=== PATIENT | female | born 1960 | race African-American/Black ===

== ENCOUNTER 2016-09-04 23:24 | Emergency (ER) | payer OTHER ==
[~2016-09-04] VITALS: Ht 172.7 cm; Wt 85.0 kg
[~2016-09-04 23:24] MED LIST: AMIT100 PO; ATOR40TA49 PO; COLY4000S PO; FERR324T4 PO; GLIP10TA6 PO; GLUC1000 PO; GLUCTES27 XX; LISI-360 PO; NEUR600T PO; SERO300T PO
[2016-09-04 23:27] VITALS: BP 132/75; PULSE 120; RESP 16; TEMP 98.1; O2SAT 99
[2016-09-05 01:00] VITALS: BP 133/67; PULSE 106; RESP 20; O2SAT 99
[2016-09-05] MEDS ORDERED: SODIUM CHLOR 0.9% 1000 ML INJ 1,000 ML IV ONE ×2 (01:00→02:15)
--- NOTE | 2016-09-05 01:09 | PD ---
HPI Chief Complaint: Diabetic Time Seen by Provider: 00:47 Travel History International Travel<30 days: No Contact w/Intl Traveler<30days: No Traveled to known affect area: No History of Present Illness HPI The patient is a 56 year old female who presents to the [facility] emergency department with a history of abnormal laboratory studies reportedly done earlier today as an outpatient by her psychiatrist. She was told that her blood sugar was very high on her blood work and that she needed to go to the emergency department. She was previously followed by her primary care through patient assistance, however she reports that her card has . She ran out of her usual diabetic and blood pressure medication in May 2016. She reports that the medication never seemed to control her blood sugar. The patient arrives with a blood sugar of 596. She reports that over the last 2-3 days she has had dysuria with urinary frequency and urgency. She reports that she also had a two-week history of diarrhea that resolved on Sunday. She denies having any blood in her stool or black or tarry stools. She reports that she does have upper abdominal discomfort. She reports that she has a dry mouth and dark urine. The patient denies any recent fevers, cough, congestion, neck pain, chest pain, shortness of breath, vomiting, or neurologic symptoms. [facility] Past Medical History Narrative Medical The patient's past medical history is significant for diabetes mellitus, history of depression, history of hypertension, history of medication noncompliance, history of diabetic neuropathy, history of tobacco abuse. Depression: Yes Diabetes: Yes (METFORMIN/GLIPIZIDE /HX OF NEUROPATHY) Patient Takes Glucophage: Yes Diminished Hearing: No Psychiatric: Yes (DEPRESSION) Immunizations Current: No Ulcer: Yes : 1 Para: 1 Past Surgical History Narrative Surgical The patient's past surgical history is significant for a right ankle surgery, left knee surgery. Social History Alcohol Use: No Tobacco Use: Yes (4-5 CIGGS PER WEEK) Substance Use: No Allergies-Medications (Allergen,Severity, Reaction): Coded Allergies: No Known Allergies (Verified , 09/20/15) Reported Meds & Prescriptions Reported Meds & Active Scripts Active Lisinopril 5 Mg Tab 5 Mg PO DAILY Glipizide 5 Mg Tab 5 Mg PO BIDAC Take 30 minutes before a meal Metformin (Metformin HCl) 1,000 Mg Tab 1,000 Mg PO BIDPC With meals Reported Seroquel (Quetiapine Fumarate) 300 Mg Tab 300 Mg PO BID Elavil (Amitriptyline HCl) 25 Mg Tab 100 Mg PO HS Narrative Medication The patient reports that she is currently taking amitriptyline, Seroquel Review of Systems Except as stated in HPI: all other systems reviewed are Neg General / Constitutional: No: Fever Eyes: No: Visual changes HENT: No: Headaches Cardiovascular: No: Chest Pain or Discomfort Respiratory: No: Shortness of Breath Gastrointestinal: Positive: Diarrhea, Abdominal Pain, Changes in Bowel Habits, No: Nausea, Vomiting, Indigestion, Loss of Appetite Genitourinary: Positive: Urgency, Frequency, Dysuria, No: Flank Pain Musculoskeletal: No: Pain Skin: No Rash Neurologic: No: Weakness, Focal Abnormalities, Change in Mentation, Slurred Speech, Sensory Disturbance Psychiatric: No: Depression Endocrine: No: Polydipsia Hematologic/Lymphatic: No: Easy Bruising Physical Exam Narrative General: The patient is a well-developed well-nourished female in no acute distress. Head and Neck exam: Head is normocephalic atraumatic. Eyes: EOMI, pupils are equal round and reactive to light. Nose: Midline septum with pink mucous membranes Mouth: Dentition unremarkable. Moist mucus membranes. Posterior oropharynx is not erythematous. No tonsillar hypertrophy. Uvula midline. Airway patent. Neck: No palpable lymphadenopathy. No nuchal rigidity. No thyromegaly. Cardiovascular: Sinus tachycardia in the low 100s without murmurs, gallops, or rubs. No pulse deficit to the extremities and simultaneous auscultation and palpation of her radial artery. Lungs: Clear to auscultation bilaterally. No wheezes, rhonchi, or rales. Abdomen: Soft, with tenderness on palpation in the midepigastric area, no other tenderness on palpation of the other quadrants of the abdomen. No guarding, rebound, or rigidity. Negative [place] sign. No tenderness on palpation of McBurney's point. Normal bowel sounds are audible. Extremities: No clubbing, cyanosis, or edema. 2+ pulses in all 4 extremities. No calf tenderness on palpation. Back: No spinous process tenderness to palpation. No costovertebral angle tenderness to palpation. Neurologic Exam: Grossly nonfocal. Skin Exam: No rash noted. Intact skin that is warm and dry. Data Data Last Documented VS Vital Signs Date Time Temp Pulse Resp B/P Pulse Ox O2 Delivery O2 Flow Rate FiO2 09/05/16 04:16 102 20 128/73 98 Room Air 09/04/16 23:27 98.1 Orders Electrocardiogram (09/05/16 00:50) Complete Blood Count With Diff (09/05/16 00:50) Comprehensive Metabolic Panel (09/05/16 00:50) Lipase (09/05/16 00:50) Urinalysis - C+S If Indicated (09/05/16 00:50) Beta Hydroxybutyrate (Acetone) (09/05/16 00:50) Iv Access Insert/Monitor (09/05/16 00:50) Ecg Monitoring (09/05/16 00:50) Oximetry (09/05/16 00:50) Sodium Chlor 0.9% 1000 Ml Inj (Ns 1000 M (09/05/16 01:00) Ct Abd/Pel W Iv Contrast(Rout) (09/05/16 01:01) Blood Gas Venous (Vbg) (09/05/16 01:15) Insulin Human Regular Inj (Novolin R Inj (09/05/16 02:15) Sodium Chlor 0.9% 1000 Ml Inj (Ns 1000 M (09/05/16 02:15) Iohexol 350 Inj (Omnipaque 350 Inj) (09/05/16 02:37) Blood Glucose (09/05/16 03:22) Insulin Human Regular Inj (Novolin R Inj (09/05/16 03:30) Labs Laboratory Tests Test 09/05/16 09/05/16 01:10 01:15 White Blood Count 9.1 TH/MM3 Red Blood Count 5.95 MIL/MM3 Hemoglobin 13.3 GM/DL Hematocrit 42.5 % Mean Corpuscular Volume 71.5 FL Mean Corpuscular Hemoglobin 22.4 PG Mean Corpuscular Hemoglobin 31.4 % Concent Red Cell Distribution Width 15.2 % Platelet Count 230 TH/MM3 Mean Platelet Volume 9.4 FL Neutrophils (%) (Auto) 47.6 % Lymphocytes (%) (Auto) 38.3 % Monocytes (%) (Auto) 7.8 % Eosinophils (%) (Auto) 5.3 % Basophils (%) (Auto) 1.0 % Neutrophils # (Auto) 4.3 TH/MM3 Lymphocytes # (Auto) 3.5 TH/MM3 Monocytes # (Auto) 0.7 TH/MM3 Eosinophils # (Auto) 0.5 TH/MM3 Basophils # (Auto) 0.1 TH/MM3 CBC Comment AUTO DIFF Differential Comment AUTO DIFF CONFIRMED Platelet Estimate NORMAL Platelet Morphology Comment NORMAL Ovalocytes 1+ Rouleau PRESENT Sodium Level 128 MEQ/L Potassium Level 4.8 MEQ/L Chloride Level 90 MEQ/L Carbon Dioxide Level 31.3 MEQ/L Anion Gap 7 MEQ/L Blood Urea Nitrogen 11 MG/DL Creatinine 0.97 MG/DL Estimat Glomerular Filtration 72 ML/MIN Rate Random Glucose 650 MG/DL Calcium Level 9.5 MG/DL Total Bilirubin 0.3 MG/DL Aspartate Amino Transf 27 U/L (AST/SGOT) Alanine Aminotransferase 33 U/L (ALT/SGPT) Alkaline Phosphatase 163 U/L Total Protein 6.9 GM/DL Albumin 3.4 GM/DL Lipase 124 U/L B-Hydroxybutyrate 0.18 MMOL/L Blood Gas Puncture Site LT RADIAL Blood Gas Patient Temperature 98.6 Venous Blood pH 7.38 Venous Blood Partial Pressure 53 mmHg CO2 Venous Blood Partial Pressure 21 mmHg O2 Venous Blood HCO3 30 mmol/L Venous Blood Oxygen Saturation 37 % Venous Blood Oxygen Content 6.9 Vol % Venous Blood Base Excess 5.3 mmol/L Blood Gas Inspired Oxygen 21 % MDM Medical Decision Making Medical Screen Exam Complete: Yes Emergency Medical Condition: Yes Medical Record Reviewed: Yes Differential Diagnosis DKA, versus hyperglycemia from medication noncompliance and type 2 diabetes, versus pancreatitis, versus pyelonephritis, versus cystitis, versus colitis, versus diverticulitis Narrative Course During the course of the patients emergency department visit, the patients history, examination, and differential diagnosis were reviewed with the patient. The patient had IV access obtained and blood work sent for analysis. The patient was placed on a pig machine supervisor with oximetry and blood pressure monitoring. A CT scan of the abdomen and pelvis was ordered. The patient had an EKG done. The patient's EKG shows a sinus tachycardia, rate of 114, possible right atrial enlargement, no acute ST segment elevation or depression. T waves are inverted in V1. The patient was provided normal saline 1 L IV fluid bolus. The patients laboratory studies were reviewed and remarkable for white count of 9.1, hemoglobin 13.3, platelets 235.3 eosinophils, CMP is remarkable for sodium of 128, chloride 90, glucose 650, alkaline phosphatase 163, lipase 124, beta hydroxybutyrate is 0.18 The patient was given 12 units of regular insulin subcutaneously 1. The patient was given a second liter of normal saline IV fluids. Radiology studies were reviewed and remarkable for a CT scan of the abdomen and pelvis that shows no acute intraperitoneal process. There does appear to be hyperdense lesions that are multiple and the area of the uterus that could represent fibroids. The patient does have a history of fibroids according to her record. Patient's blood sugar began to slowly improve. The patient's blood sugar came down to in the 400s. An additional 9 units of subcutaneous regular insulin was administered. The patient will be started back on her diabetic medication regimen as well as her antihypertensive medication regimen. She was instructed regarding the importance of following up with patient assistance in the morning. The patient is resting comfortably and feels better, is alert and in no distress. The patients results and examination findings were discussed with the patient. The repeat examination is unremarkable and benign. The history, exam, diagnostic testing, and current condition do not suggest any significant pathology to warrant further testing, continued ED treatment, admission, or surgical evaluation at this point. The vital signs have been stable. The patient does not have uncontrollable pain, intractable vomiting, or other significant symptoms. The patient's condition is stable and appropriate for discharge. The patient will pursue further outpatient evaluation with a primary care physician or other designated or consulting physician as indicated in the discharge instructions. The patient expressed understanding and was agreeable with this plan. Diagnosis Primary Impression: Diabetes mellitus Qualified Code: E11.65 - Type 2 diabetes mellitus with hyperglycemia, without long-term current use of insulin Additional Impression: Noncompliance with medication regimen Referrals: Patient Assistance Program 1 day Patient Instructions: Diabetic Hyperglycemia (ED), General Instructions Med/Other Pt SpecificInfo: Prescription(s) given Scripts Lisinopril 5 Mg Tab5 Mg PO DAILY #30 TAB Ref 0 Prov:Eliane Shah MD 09/05/16 Glipizide 5 Mg Tab5 Mg PO BIDAC #60 TAB Ref 0 Take 30 minutes before a meal Prov:Eliane Shah MD 09/05/16 Metformin 1,000 Mg Tab1,000 Mg PO BIDPC #60 TAB Ref 0 With meals Prov:Eliane Shah MD 09/05/16 Disposition: 01 DISCHARGE HOME Condition: Stable Eliane Shah MD Sep 05, 2016 01:09
[2016-09-05] MEDS ORDERED: SERO300T PO (01:13)
[2016-09-05] MEDS ORDERED: AMIT1TAB79 PO (01:13)
[2016-09-05 01:21] LABS: AUTOMATED NEUTROPHIL # 4.3 TH/MM3 (1.8-7.7); BASOPHIL # 0.1 TH/MM3 (0-0.2); EOSINOPHIL # 0.5 TH/MM3 (0-0.4); EOSINOPHIL % 5.3 % (0.0-4.0); HEMATOCRIT 42.5 % (35.0-46.0); LYMPH % 38.3 % (9.0-44.0); LYMPHOCYTE # 3.5 TH/MM3 (1.0-4.8); MEAN CELL VOLUME 71.5 FL (80.0-100.0); MEAN CORPUSCULAR HEMOGLOBIN 22.4 PG (27.0-34.0); MEAN CORPUSCULAR HGB CONC 31.4 % (32.0-36.0); MONO % 7.8 % (0.0-8.0); NEUT % 47.6 % (16.0-70.0); PLATELET COUNT 230 TH/MM3 (150-450); RED BLOOD COUNT 5.95 MIL/MM3 (4.00-5.30); RED CELL DISTRIBUTION WIDTH 15.2 % (11.6-17.2); WHITE BLOOD COUNT 9.1 TH/MM3 (4.0-11.0)
[2016-09-05 01:24] LABS: HEMO FLAGS AUTO DIFF
[2016-09-05 01:27] LABS: BLOOD GAS VENOUS BASE EXCESS 5.3 mmol/L (-2-2); BLOOD GAS VENOUS HCO3 30 mmol/L (22-26); BLOOD GAS VENOUS O2 CONTENT 6.9 Vol % (9.0-17.0); BLOOD GAS VENOUS O2 HGB SAT 37 % (70-76); BLOOD GAS VENOUS PCO2 53 mmHg (44-48); BLOOD GAS VENOUS PO2 21 mmHg (35-40); BLOOD GAS VENOUS pH 7.38 (7.360-7.400); TEMP CORR TO 98.6
[2016-09-05 01:28] LABS: CRITICAL VALUE YES; DRAW SITE LT RADIAL; FIO2 21 %; STAT YES
[2016-09-05 01:32] VITALS: RESP 20; O2SAT 95
[2016-09-05 01:53] LABS: ALKALINE PHOSPHATASE 163 U/L (45-117); ALT (GPT) 33 U/L (10-53); ANION GAP 7 MEQ/L (5-15); AST (GOT) 27 U/L (15-37); BETA-HYDROXYBUTYRATE 0.18 MMOL/L (0.00-0.39); BICARBONATE 31.3 MEQ/L (21.0-32.0); BLOOD UREA NITROGEN 11 MG/DL (7-18); CHLORIDE 90 MEQ/L (98-107); GLOMERULAR FILTRATION RATE 72 ML/MIN (>89); POTASSIUM 4.8 MEQ/L (3.5-5.1); SODIUM (NA) 128 MEQ/L (136-145); TOTAL BILIRUBIN ADULT 0.3 MG/DL (0.2-1.0)
[2016-09-05 01:59] LABS: OVALOCYTES 1+ (NORMAL); PLATELET ESTIMATE SMEAR NORMAL (NORMAL); PLATELET MORPHOLOGY NORMAL (NORMAL)
[2016-09-05 02:00] VITALS: BP 119/71; PULSE 104; RESP 20; O2SAT 98
[2016-09-05 02:02] LABS: ROULEAUX PRESENT (NORMAL); SCAN/DIFF AUTO DIFF CONFIRMED
[2016-09-05] MEDS ORDERED: INSULIN HUMAN REGULAR 1,000 UNITS/10 ML VIAL SQ ONE ×2 (02:15→03:30)
[2016-09-05] MEDS ORDERED: IOHEXOL 350 MG/ML 10 ML VIAL (for RAD DIAG) IV ONE (02:37)
--- NOTE | 2016-09-05 02:59 | RADRPT ---
EXAM DATE/TIME: 09/05/2016 02:34 [place] COMPARISON: No previous studies available for comparison. INDICATIONS : Upper abdominal pain. IV CONTRAST: 96 cc Omnipaque 350 (iohexol) IV ORAL CONTRAST: No oral contrast ingested. RADIATION DOSE: 16.45 CTDIvol (mGy) MEDICAL HISTORY : Ulcers. Hypertension. diabetes SURGICAL HISTORY : None. ENCOUNTER: Initial ACUITY: 1 day PAIN SCALE: 6/10 LOCATION: upper abdomen TECHNIQUE: Volumetric scanning of the abdomen and pelvis was performed. Using automated exposure control and ad justment of the mA and/or kV according to patient size, radiation dose was kept as low as reasonably achievable to obtain optimal diagnostic quality images. FINDINGS: LOWER LUNGS: The visualized lower lungs are clear. LIVER: Homogeneous density without lesion. There is no dilation of the biliary tree. No calcified gallston es. SPLEEN: Normal size without lesion. PANCREAS: Within normal limits. KIDNEYS: Normal in size and shape. There is no mass, stone or hydronephrosis. ADRENAL GLANDS: Within normal limits. VASCULAR: There is no aortic aneurysm. BOWEL/MESENTERY: The stomach, small bowel, and colon demonstrate no acute abnormality. There is no free intraperitone al air or fluid. ABDOMINAL WALL: Within normal limits. RETROPERITONEUM: There is no lymphadenopathy. BLADDER: No wall thickening or mass. REPRODUCTIVE: Well-circumscribed relatively hyperdense or over the expected location of the uterus may represent fi broids. In addition, there are fluid-filled tubular structures in the deep pelvis which may represent unopacified bowel although I cannot exclude a reproductive origin such as tubo-ovarian abscess. I do believe there is a small amount of free fluid in the deep pelvis. INGUINAL: There is no lymphadenopathy or hernia. MUSCULOSKELETAL: Within normal limits for patient age. CONCLUSION: 1. I do not see an acute intraperitoneal process to explain patient's reported left upper abdominal q uadrant pain. 2. However, there are multiple relatively hyperdense nodule projecting over the expected location of the uterus possibly represent fibroids. 3. In addition, there are either unopacified loops of bowel versus tubo-ovarian abscess in the periut erine distribution of the left pelvis. If patient does not have any pain referable to the pelvic ginette on, I do not believe a further workup is necessary. Otherwise, repeat CT scan in the a.m. with oral c ontrast would be recommended for further characterization of this region. Antoine King MD on September 05, 2016 at 2:50 Board Certified Radiologist. This report was verified electronically.
[2016-09-05 03:00] VITALS: BP 139/71; PULSE 104; RESP 20; O2SAT 98
[2016-09-05] MEDS ORDERED: GLIP5TAB8 PO (03:20)
[2016-09-05] MEDS ORDERED: LISI10TA3 PO (03:20)
[2016-09-05] MEDS ORDERED: METF1000 PO (03:20)
[2016-09-05 04:16] VITALS: BP 128/73; PULSE 102; RESP 20; O2SAT 98
[2016-09-05] MEDS ORDERED: LISI-519 PO (04:16)
--- NOTE | 2016-09-13 07:51 | EKG ---
Date Performed: 09/05/2016 Time Performed: 01:20:51 PTAGE: 56 years EKG: SINUS TACHYCARDIA POSSIBLE RIGHT ATRIAL ENLARGEMENT LEFT ATRIAL ENLARGEMENT SEPTAL MYOCARDI AL INFARCTION ABNORMAL ECG NO PREVIOUS TRACING DOCTOR: Geovany Tuttle Interpretating Date/Time 09/13/2016 07:51:27
== END 2016-09-05 04:47 | disposition home or self-care (01) ==
LOC: NEPE 23:24
DX: E11.65 Type 2 diabetes mellitus with hyperglycemia (principal); I10 Essential (primary) hypertension; R30.0 Dysuria; R35.0 Frequency of micturition; R39.15 Urgency of urination; R10.10 Upper abdominal pain, unspecified; Z91.14 Patient's other noncompliance with medication regimen; Z72.0 Tobacco use; Z79.84 Long term (current) use of oral hypoglycemic drugs; Z86.59 Personal history of other mental and behavioral disorders; Z86.69 Personal history of other diseases of the nervous system and sense organs
CPT/HCPCS: 74177; 80053; 82010; 82805; 83690; 85025; 93005; 96360; 96361; 96372; 99285; J1815; J7030; Q9967

== ENCOUNTER 2017-03-20 22:20 | Emergency (ER) | payer MEDICARE, OTHER ==
[~2017-03-20] VITALS: Ht 172.7 cm; Wt 89.5 kg
[~2017-03-20 22:20] MED LIST changes: -AMIT100 PO; +AMIT1TAB79 PO; -ATOR40TA49 PO; -COLY4000S PO; -FERR324T4 PO; -GLIP10TA6 PO; +GLIP5TAB8 PO; -GLUC1000 PO; -GLUCTES27 XX; -LISI-360 PO; +LISI-519 PO; +METF1000 PO; -NEUR600T PO
[2017-03-20 22:26] VITALS: BP 140/75; TEMP 98.4
[2017-03-20 22:29] VITALS: PULSE 120; O2SAT 98
[2017-03-20] MEDS ORDERED: AMIT25TA9 PO (22:43)
[2017-03-20] MEDS ORDERED: SODIUM CHLOR 0.9% 1000 ML INJ 1,000 ML IV ONE (23:00)
--- NOTE | 2017-03-20 23:11 | PD ---
HPI Chief Complaint: Diabetic Time Seen by Provider: 22:44 Travel History International Travel<30 days: No Contact w/Intl Traveler<30days: No Traveled to known affect area: No History of Present Illness HPI The patient is a 56 year old female who presents to the [facility] emergency department with a history of going to her primary care physician's office earlier today at approximately 10 AM at which time her blood sugar was noted to be 585. She reports that they wanted to transfer her by ambulance to the emergency department, however the patient refused. The patient reported that she would go to the emergency department on her own for evaluation. They made an appointment for follow-up for tomorrow. The patient reports that she is on glipizide and metformin for her diabetes. She has been told in the past by her primary care physician that her blood sugar control is inadequate and that she should turn on insulin. The patient reports that she has been reticent in the past to do this, however at this time she is agreeable to starting a better regimen for her diabetic control. The patient reports that she did have some dysuria on Sunday. She reports that this did resolve. She reports that she has had urinary frequency and polyuria. She denies having any recent fevers, back pain, cough, congestion, neck pain, chest pain, shortness of breath, abdominal pain, vomiting, diarrhea, or neurologic symptoms. The patient reports that she does have extremity pain related to her neuropathy. [facility] Past Medical History Narrative Medical The patient's past medical history is significant for neuropathy, diabetes mellitus, history of depression, history of hypertension, history of medication noncompliance, history of tobacco abuse. Depression: Yes Diabetes: Yes (METFORMIN/GLIPIZIDE /HX OF NEUROPATHY) Diminished Hearing: No Psychiatric: Yes (DEPRESSION) Immunizations Current: No Ulcer: Yes : 1 Para: 1 Past Surgical History Narrative Surgical The patient's past surgical history is significant for right ankle surgery, left knee surgery. Social History Alcohol Use: No Tobacco Use: Yes (4-5 CIGGS PER WEEK) Substance Use: No Allergies-Medications (Allergen,Severity, Reaction): Coded Allergies: No Known Allergies (Verified , 03/20/17) Reported Meds & Prescriptions Reported Meds & Active Scripts Active Lisinopril 5 Mg Tab 5 Mg PO DAILY Glipizide 5 Mg Tab 5 Mg PO BIDAC Take 30 minutes before a meal Metformin (Metformin HCl) 1,000 Mg Tab 1,000 Mg PO BIDPC With meals Reported Amitriptyline (Amitriptyline HCl) 25 Mg Tab 25 Mg PO HS Review of Systems Except as stated in HPI: all other systems reviewed are Neg General / Constitutional: No: Fever Eyes: No: Visual changes HENT: No: Headaches Cardiovascular: No: Chest Pain or Discomfort Respiratory: No: Shortness of Breath Gastrointestinal: No: Abdominal Pain Genitourinary: Positive: Frequency, Dysuria, No: Urgency, Flank Pain Musculoskeletal: Positive: Myalgias, Pain Skin: No Rash Neurologic: No: Weakness, Focal Abnormalities, Change in Mentation, Slurred Speech, Sensory Disturbance Psychiatric: No: Depression Endocrine: Positive: Polyuria, Polydipsia Hematologic/Lymphatic: No: Easy Bruising Physical Exam Narrative General: The patient is a well-developed well-nourished female in no acute distress. Head and Neck exam: Head is normocephalic atraumatic. Eyes: EOMI, pupils are equal round and reactive to light. Nose: Midline septum with pink mucous membranes Mouth: Dentition unremarkable. Moist mucus membranes. Posterior oropharynx is not erythematous. No tonsillar hypertrophy. Uvula midline. Airway patent. Neck: No palpable lymphadenopathy. No nuchal rigidity. No thyromegaly. Cardiovascular: Sinus tachycardia in the low 100 without murmurs, gallops, or rubs. No pulse deficit to the extremities. Lungs: Clear to auscultation bilaterally. No wheezes, rhonchi, or rales. Abdomen: Soft, without tenderness to palpation in all 4 quadrants of the abdomen. No guarding, rebound, or rigidity. Negative [place] sign. Extremities: No clubbing, cyanosis, or edema. 2+ pulses in all 4 extremities. Back: No spinous process tenderness to palpation. No costovertebral angle tenderness to palpation. Neurologic Exam: Cranial nerves 2-12 were intact on exam. Strength is 5/5 in all 4 extremities. No sensory deficits noted. No dysdiadochokinesis. Good finger to nose and Heel to malloy bilaterally. Skin Exam: No rash noted. Intact skin that is warm and dry. Data Data Last Documented VS Vital Signs Date Time Temp Pulse Resp B/P (MAP) Pulse Ox O2 Delivery O2 Flow Rate FiO2 03/21/17 00:19 100 03/21/17 00:00 101 16 03/20/17 22:26 98.4 Orders Orders Complete Blood Count With Diff (03/20/17 22:57) Comprehensive Metabolic Panel (03/20/17 22:57) Urinalysis - C+S If Indicated (03/20/17 22:57) Magnesium (Mg) (03/20/17 22:57) Beta Hydroxybutyrate (Acetone) (03/20/17 22:57) Iv Access Insert/Monitor (03/20/17 22:57) Ecg Monitoring (03/20/17 22:57) Oximetry (03/20/17 22:57) Sodium Chlor 0.9% 1000 Ml Inj (Ns 1000 M (03/20/17 23:00) Sodium Chlorid 0.9% 500 Ml Inj (Ns 500 M (03/21/17 01:00) Insulin Human Regular Inj (Novolin R Inj (03/21/17 01:00) Labs Laboratory Tests Test 03/20/17 23:15 White Blood Count 9.4 TH/MM3 Red Blood Count 5.94 MIL/MM3 Hemoglobin 13.6 GM/DL Hematocrit 42.6 % Mean Corpuscular Volume 71.7 FL Mean Corpuscular Hemoglobin 22.8 PG Mean Corpuscular Hemoglobin Concent 31.8 % Red Cell Distribution Width 15.2 % Platelet Count 223 TH/MM3 Mean Platelet Volume 9.4 FL Neutrophils (%) (Auto) 46.8 % Lymphocytes (%) (Auto) 40.1 % Monocytes (%) (Auto) 7.0 % Eosinophils (%) (Auto) 5.2 % Basophils (%) (Auto) 0.9 % Neutrophils # (Auto) 4.4 TH/MM3 Lymphocytes # (Auto) 3.8 TH/MM3 Monocytes # (Auto) 0.7 TH/MM3 Eosinophils # (Auto) 0.5 TH/MM3 Basophils # (Auto) 0.1 TH/MM3 CBC Comment DIFF FINAL Differential Comment Blood Urea Nitrogen 7 MG/DL Creatinine 0.71 MG/DL Random Glucose 410 MG/DL Total Protein 7.5 GM/DL Albumin 3.5 GM/DL Calcium Level 9.5 MG/DL Magnesium Level 2.0 MG/DL Alkaline Phosphatase 142 U/L Aspartate Amino Transf (AST/SGOT) 17 U/L Alanine Aminotransferase (ALT/SGPT) 30 U/L Total Bilirubin 0.4 MG/DL Sodium Level 132 MEQ/L Potassium Level 3.9 MEQ/L Chloride Level 95 MEQ/L Carbon Dioxide Level 31.7 MEQ/L Anion Gap 5 MEQ/L Estimat Glomerular Filtration Rate 103 ML/MIN B-Hydroxybutyrate 0.23 MMOL/L MDM Medical Decision Making Medical Screen Exam Complete: Yes Emergency Medical Condition: Yes Medical Record Reviewed: Yes Differential Diagnosis DKA, versus uncontrolled hyperglycemia, versus hyperosmolar hyperglycemia Narrative Course During the course of the patients emergency department visit, the patients history, examination, and differential diagnosis were reviewed with the patient. The patient had IV access obtained and blood work sent for analysis. The patient was placed on a administrative court justice with oximetry and blood pressure monitoring. The patient was initially provided normal saline 1 L IV fluid bolus which was repeated with a 500 mL bolus. The patient was given regular insulin 8 mg subcutaneously 1. The patients laboratory studies were reviewed and remarkable for a white count of 9.4, hemoglobin 13.6, platelets 223 with 5.2 eosinophils, CMP is remarkable for sodium of 132, chloride 95, glucose 410, alkaline phosphatase 142, B a hydroxybutyrate is 0.23. The patient reports that she has a follow-up appointment scheduled with her primary care physician for tomorrow morning. The patient is resting comfortably and feels better, is alert and in no distress. The patients results and examination findings were discussed with the patient. The repeat examination is unremarkable and benign. The history, exam, diagnostic testing, and current condition do not suggest any significant pathology to warrant further testing, continued ED treatment, admission, or surgical evaluation at this point. The vital signs have been stable. The patient does not have uncontrollable pain, intractable vomiting, or other significant symptoms. The patient's condition is stable and appropriate for discharge. The patient will pursue further outpatient evaluation with a primary care physician or other designated or consulting physician as indicated in the discharge instructions. The patient expressed understanding and was agreeable with this plan. Diagnosis Primary Impression: DM type 2, uncontrolled, with neuropathy Additional Impression: Hyperglycemia due to type 2 diabetes mellitus Qualified Codes: E11.65 - Type 2 diabetes mellitus with hyperglycemia Referrals: Primary Care Physician 1 day Patient Instructions: Diabetic Hyperglycemia (ED), General Instructions Additional Instructions: Follow-up with her primary care physician as previously scheduled tomorrow to get started on a better regimen to control your blood sugar. Disposition: 01 DISCHARGE HOME Condition: Stable Eliane Shah MD Mar 20, 2017 23:10
[2017-03-20 23:32] LABS: AUTOMATED NEUTROPHIL # 4.4 TH/MM3 (1.8-7.7); BASOPHIL # 0.1 TH/MM3 (0-0.2); BASOPHIL % 0.9 % (0.0-2.0); EOSINOPHIL # 0.5 TH/MM3 (0-0.4); EOSINOPHIL % 5.2 % (0.0-4.0); HEMATOCRIT 42.6 % (35.0-46.0); HEMO FLAGS DIFF FINAL; LYMPH % 40.1 % (9.0-44.0); LYMPHOCYTE # 3.8 TH/MM3 (1.0-4.8); MEAN CELL VOLUME 71.7 FL (80.0-100.0); MEAN CORPUSCULAR HEMOGLOBIN 22.8 PG (27.0-34.0); MEAN CORPUSCULAR HGB CONC 31.8 % (32.0-36.0); NEUT % 46.8 % (16.0-70.0); PLATELET COUNT 223 TH/MM3 (150-450); RED BLOOD COUNT 5.94 MIL/MM3 (4.00-5.30); RED CELL DISTRIBUTION WIDTH 15.2 % (11.6-17.2); WHITE BLOOD COUNT 9.4 TH/MM3 (4.0-11.0)
[2017-03-20 23:48] LABS: ALKALINE PHOSPHATASE 142 U/L (45-117); ALT (GPT) 30 U/L (10-53); ANION GAP 5 MEQ/L (5-15); AST (GOT) 17 U/L (15-37); BETA-HYDROXYBUTYRATE 0.23 MMOL/L (0.00-0.39); BICARBONATE 31.7 MEQ/L (21.0-32.0); BLOOD UREA NITROGEN 7 MG/DL (7-18); CHLORIDE 95 MEQ/L (98-107); GLOMERULAR FILTRATION RATE 103 ML/MIN (>89); SODIUM (NA) 132 MEQ/L (136-145); TOTAL BILIRUBIN ADULT 0.4 MG/DL (0.2-1.0)
[2017-03-20 23:49] LABS: POTASSIUM 3.9 MEQ/L (3.5-5.1)
[2017-03-21] VITALS: BP 147/61; PULSE 101; RESP 16; O2SAT 100
[2017-03-21 00:19] VITALS: O2SAT 100
[2017-03-21] MEDS ORDERED: SODIUM CHLORID 0.9% 500 ML INJ 500 ML IV ONE (01:00)
[2017-03-21] MEDS ORDERED: INSULIN HUMAN REGULAR 1,000 UNITS/10 ML VIAL SQ ONE (01:00)
== END 2017-03-21 02:52 | disposition home or self-care (01) ==
LOC: NEPE 22:20
DX: E11.40 Type 2 diabetes mellitus with diabetic neuropathy, unspecified (principal); E11.65 Type 2 diabetes mellitus with hyperglycemia; R30.0 Dysuria; R35.0 Frequency of micturition; F17.210 Nicotine dependence, cigarettes, uncomplicated; F32.9 Major depressive disorder, single episode, unspecified; R35.8 Other polyuria; Z79.899 Other long term (current) drug therapy
CPT/HCPCS: 80053; 82010; 83735; 85025; 96360; 96372; 99284; J1815; J7030; J7040

== ENCOUNTER 2017-09-08 00:14 | Emergency (ER) | payer MEDICARE, OTHER ==
[~2017-09-08] VITALS: Ht 172.7 cm; Wt 89.0 kg
[~2017-09-08 00:14] MED LIST changes: -AMIT1TAB79 PO; +AMIT25TA9 PO; -SERO300T PO
[2017-09-08 00:33] VITALS: BP 170/77; PULSE 119; RESP 20; TEMP 98.2; O2SAT 98
[2017-09-08 01:17] VITALS: BP 170/82; PULSE 114; RESP 18; O2SAT 100
[2017-09-08 01:48] LABS: AUTOMATED NEUTROPHIL # 10.9 TH/MM3 (1.8-7.7); BASOPHIL # 0.1 TH/MM3 (0-0.2); BASOPHIL % 0.5 % (0.0-2.0); EOSINOPHIL # 0.1 TH/MM3 (0-0.4); EOSINOPHIL % 0.7 % (0.0-4.0); HEMOGLOBIN 11.3 GM/DL (11.6-15.3); LYMPH % 11.1 % (9.0-44.0); LYMPHOCYTE # 1.5 TH/MM3 (1.0-4.8); MEAN CELL VOLUME 69.3 FL (80.0-100.0); MEAN CORPUSCULAR HGB CONC 33.2 % (32.0-36.0); MEAN PLATELET VOLUME 8.1 FL (7.0-11.0); MONOCYTE # 0.8 TH/MM3 (0-0.9); NEUT % 81.7 % (16.0-70.0); PLATELET COUNT 304 TH/MM3 (150-450); WHITE BLOOD COUNT 13.3 TH/MM3 (4.0-11.0)
[2017-09-08 02:16] LABS: ALBUMIN 3.1 GM/DL (3.4-5.0); ALT (GPT) 19 U/L (10-53); AST (GOT) 9 U/L (15-37); BICARBONATE 30.5 MEQ/L (21.0-32.0); BLOOD UREA NITROGEN 28 MG/DL (7-18); CALCIUM 9.3 MG/DL (8.5-10.1); CHLORIDE 104 MEQ/L (98-107); CREATININE 3.13 MG/DL (0.50-1.00); GLOMERULAR FILTRATION RATE 19 ML/MIN (>89); GLUCOSE,RANDOM 253 MG/DL (74-106); SODIUM (NA) 142 MEQ/L (136-145)
[2017-09-08 02:18] LABS: ALKALINE PHOSPHATASE 275 U/L (45-117); TOTAL BILIRUBIN ADULT 0.3 MG/DL (0.2-1.0); TOTAL PROTEIN 8.1 GM/DL (6.4-8.2)
--- NOTE | 2017-09-08 02:49 | PD ---
HPI Chief Complaint: Flank/Kidney Pain Time Seen by Provider: 01:24 Travel History International Travel<30 days: No Contact w/Intl Traveler<30days: No Traveled to known affect area: No History of Present Illness HPI Patient is a 57-year-old female complaining of lower back pain radiating around the left side of her back started this morning but got severely worse when she laid in bed tonight to come to the ER complaining of back pain. She has history of diabetes hypertension she is on Lantus. She denies dysuria she reports constipation , she denies hematuria.. SHe denies renal issues her creatinine today is 3.13. last reading i our lab was normal PFSH Past Medical History Depression: Yes Diabetes: Yes Patient Takes Glucophage: No (INSULIN) Diminished Hearing: No Psychiatric: Yes (DEPRESSION) Immunizations Current: No Ulcer: Yes : 1 Para: 1 Social History Alcohol Use: No Tobacco Use: Yes (4-5 CIGGS PER WEEK) Substance Use: No Allergies-Medications (Allergen,Severity, Reaction): Coded Allergies: No Known Allergies (Verified Adverse Reaction, Unknown, 09/08/17) Reported Meds & Prescriptions Reported Meds & Active Scripts Active Lisinopril 5 Mg Tab 5 Mg PO DAILY Glipizide 5 Mg Tab 5 Mg PO BIDAC Take 30 minutes before a meal Metformin (Metformin HCl) 1,000 Mg Tab 1,000 Mg PO BIDPC With meals Reported Amitriptyline (Amitriptyline HCl) 25 Mg Tab 50 Mg PO HS Review of Systems Except as stated in HPI: all other systems reviewed are Neg Physical Exam Narrative GENERAL: non toxic SKIN: Warm and dry. HEAD: Atraumatic. Normocephalic. EYES: Pupils equal and round. No scleral icterus. No injection or drainage. ENT: No nasal bleeding or discharge. Mucous membranes pink and moist. NECK: Trachea midline. No JVD. CARDIOVASCULAR: Regular rate and rhythm. RESPIRATORY: No accessory muscle use. Clear to auscultation. Breath sounds equal bilaterally. GASTROINTESTINAL: Abdomen soft, non-tender, nondistended. Hepatic and splenic margins not palpable. BACK parathoracic tenderness radiating to left side and reproducible . NEUROLOGICAL: Awake and alert. No obvious cranial nerve deficits. Motor grossly within normal limits. Five out of 5 muscle strength in the arms and legs. Normal speech. PSYCHIATRIC: Appropriate mood and affect; insight and judgment normal. Data Data Last Documented VS Vital Signs Date Time Temp Pulse Resp B/P (MAP) Pulse Ox O2 Delivery O2 Flow Rate FiO2 09/08/17 05:17 09/08/17 01:17 114 18 100 09/08/17 00:33 98.2 Orders Orders Complete Blood Count With Diff (09/08/17 01:09) Comprehensive Metabolic Panel (09/08/17 01:09) Urinalysis - C+S If Indicated (09/08/17 01:09) Iv Access Insert/Monitor (09/08/17 01:09) Oximetry (09/08/17 01:09) Lipase (09/08/17 01:09) Sodium Chlor 0.9% 1000 Ml Inj (Ns 1000 M (09/08/17 03:15) Ct Abd/Pel W/O Iv Contrast (09/08/17 ) Ceftriaxone Inj (Rocephin Inj) (09/08/17 04:45) Urine Culture (09/08/17 04:10) Labs Laboratory Tests Test 09/08/17 01:15 09/08/17 04:10 White Blood Count 13.3 TH/MM3 Red Blood Count 4.90 MIL/MM3 Hemoglobin 11.3 GM/DL Hematocrit 34.0 % Mean Corpuscular Volume 69.3 FL Mean Corpuscular Hemoglobin 23.0 PG Mean Corpuscular Hemoglobin Concent 33.2 % Red Cell Distribution Width 16.0 % Platelet Count 304 TH/MM3 Mean Platelet Volume 8.1 FL Neutrophils (%) (Auto) 81.7 % Lymphocytes (%) (Auto) 11.1 % Monocytes (%) (Auto) 6.0 % Eosinophils (%) (Auto) 0.7 % Basophils (%) (Auto) 0.5 % Neutrophils # (Auto) 10.9 TH/MM3 Lymphocytes # (Auto) 1.5 TH/MM3 Monocytes # (Auto) 0.8 TH/MM3 Eosinophils # (Auto) 0.1 TH/MM3 Basophils # (Auto) 0.1 TH/MM3 CBC Comment DIFF FINAL Differential Comment Blood Urea Nitrogen 28 MG/DL Creatinine 3.13 MG/DL Random Glucose 253 MG/DL Total Protein 8.1 GM/DL Albumin 3.1 GM/DL Calcium Level 9.3 MG/DL Alkaline Phosphatase 275 U/L Aspartate Amino Transf (AST/SGOT) 9 U/L Alanine Aminotransferase (ALT/SGPT) 19 U/L Total Bilirubin 0.3 MG/DL Sodium Level 142 MEQ/L Potassium Level 3.9 MEQ/L Chloride Level 104 MEQ/L Carbon Dioxide Level 30.5 MEQ/L Anion Gap 8 MEQ/L Estimat Glomerular Filtration Rate 19 ML/MIN Lipase 56 U/L Urine Color LIGHT-YELLOW Urine Turbidity HAZY Urine pH 7.5 Urine Specific [place] 1.005 Urine Protein 30 mg/dL Urine Glucose (UA) NEG mg/dL Urine Ketones NEG mg/dL Urine Occult Blood SMALL Urine Nitrite NEG Urine Bilirubin NEG Urine Urobilinogen LESS THAN 2.0 MG/DL Urine Leukocyte Esterase LARGE Urine RBC 2 /hpf Urine WBC 74 /hpf Urine Squamous Epithelial Cells 1 /hpf Urine Bacteria MOD /hpf Urine Mucus FEW /lpf Microscopic Urinalysis Comment CULTURE INDICATED MDM Medical Decision Making Medical Screen Exam Complete: Yes Emergency Medical Condition: Yes Differential Diagnosis Patient has elevated creatinine could be secondary to renal failure of chronic diabetes or hypertension or kidney stones or bladder outlet obstruction she has severe constipation could be due to medication could be due to immobility back pain could be due to constipation or muscle spasm Narrative Course Patient's CAT scan shows a very distended bladder that shows fecal impaction of significance with very thinning on stretching of her rectal wall her bladder wall is very thin and stretched by significant amount of urine and she has air in her bladder without explanation denies procedure she is given a Sheikh 1600 cc of urine is relieved patient is refusing to be admitted until she needs to have her kidney evaluation she needs to possibly have a bowel prep and a fecal disimpaction she and says she must go home to give her car back and she will get back to be admitted but she refuses to stay I explained the risk of sepsis from urosepsis or perforation of her rectum from extensive fecal impaction she understands the risk to leave including sepsis and cardiac and since that she will go anywhere Diagnosis Primary Impression: Elevated creatine kinase Additional Impression: Bladder outlet obstruction Disposition: 07 AGAINST MEDICAL ADVICE Nilay Denney MD Sep 08, 2017 02:49
[2017-09-08] MEDS ORDERED: SODIUM CHLOR 0.9% 1000 ML INJ 1,000 ML IV ONE (03:15)
--- NOTE | 2017-09-08 04:00 | RADRPT ---
EXAM DATE/TIME: 09/08/2017 03:23 [facility] COMPARISON: No previous studies available for comparison. INDICATIONS : Left flank abdomen pain. ORAL CONTRAST: No oral contrast ingested. RADIATION DOSE: 16.84 CTDIvol (mGy) MEDICAL HISTORY : Diabetes mellitus type 2. Hypertension. SURGICAL HISTORY : None. ENCOUNTER: Initial ACUITY: 1 day PAIN SCALE: 8/10 LOCATION: Left flank TECHNIQUE: Volumetric scanning of the abdomen and pelvis was performed. Using automated exposure control and ad justment of the mA and/or kV according to patient size, radiation dose was kept as low as reasonably achievable to obtain optimal diagnostic quality images. DICOM format image data is available electro nically for review and comparison. FINDINGS: Markedly distended urinary bladder with an appearance suggesting bladder outlet obstruction noted. Th is is of unclear etiology but there is fecal impaction and marked, presumably secondary wall thickeni ng of the rectum. Some air is seen in the urinary bladder, etiology uncertain [facility] does not report recent attempted Sheikh catheter placement. Accordingly, the possi bility of a gas forming organism within the urinary bladder is recommended. I don't see any changes t o suggest any vesical fistula. There is 3.2 x 5.1 cm soft tissue fullness in the right adnexal region /right side of the uterus. There is severe right and moderate to severe left hydronephrosis, new and presumably related to bladd er obstruction. No renal or ureteral stones are demonstrated. Large amount of edema and mildly organi zed fluid seen around the proximal left ureter and of concern for an associated urine leak. Noncontrast appearance of the liver, spleen, pancreas and adrenal glands within normal limits. No foc al inflammatory changes are seen of the gastrointestinal tract. Visualized lung bases are clear. CONCLUSION: 1. Apparent obstruction of the urinary bladder, exact etiology uncertain but possibly secondary to fe howard impaction and marked wall thickening of the adjacent rectum. 2. Bilateral hydronephrosis and hydroureter, also nonspecific but presumably related to bladder obstr uction. I believe there is an associated urine leak of the proximal left ureter or lower pole of the left kidney. 3. Air in the year and bladder. Please see above. 4. Possible right adnexal mass. Findings were discussed with Dr. Denney by phone. Sukhwinder Coffey MD on September 08, 2017 at 3:43 Board Certified Radiologist. This report was verified electronically.
[2017-09-08 04:40] LABS: BACTERIA, URINE MOD /hpf; BILIRUBIN, URINE NEG (NEG); BLOOD, URINE SMALL (NEG); GLUCOSE,URINE NEG (NEG); KETONE, URINE NEG (NEG); MUCUS URINE FEW /lpf (OCC); NITRITE,URINE NEG (NEG); PH, URINE 7.5 (5.0-8.5); SQUAMOUS EPITHELIAL CELL URINE 1 /hpf (0-5); URINE COLOR LIGHT-YELLOW (YELLW/STRAW); URINE LEUKOCYTE ESTERASE LARGE (NEG)
[2017-09-08] MEDS ORDERED: BACT800T5 PO (04:41)
[2017-09-08] MEDS ORDERED: cefTRIAXone INJ 1,000 MG in SODIUM CHLORIDE 0.9% INJ 100 ML IV ONE (04:45)
== END 2017-09-08 05:18 | disposition left against medical advice (07) ==
LOC: NEPC 00:14
DX: R74.8 Abnormal levels of other serum enzymes (principal); N32.0 Bladder-neck obstruction; K56.41 Fecal impaction; E11.9 Type 2 diabetes mellitus without complications; I10 Essential (primary) hypertension; F32.9 Major depressive disorder, single episode, unspecified; F17.210 Nicotine dependence, cigarettes, uncomplicated
CPT/HCPCS: 74176; 80053; 81001; 83690; 85025; 87086; 96361; 96365; 99284; J0696; J7030

== ENCOUNTER 2017-09-08 06:51 | Inpatient (IN) | payer MEDICARE, OTHER ==
[~2017-09-08] VITALS: Ht 172.7 cm; Wt 92.6 kg
[2017-09-08] VITALS (9 sets, daily range): BP systolic 117–178; BP diastolic 77–93; PULSE 99–123; RESP 17–22; TEMP 97.5–98.5; O2SAT 98–100
[~2017-09-08 06:51] MED LIST changes: +BACT800T5 PO
[2017-09-08] MEDS ORDERED: SODIUM CHLOR 0.9% 1000 ML INJ 1,000 ML IV ONE (07:30)
--- NOTE | 2017-09-08 07:38 | PD ---
HPI Chief Complaint: Flank/Kidney Pain Time Seen by Provider: 07:16 Travel History International Travel<30 days: No Contact w/Intl Traveler<30days: No Traveled to known affect area: No History of Present Illness HPI The patient is a 57-year-old [place] female who presents emergency department for admission of acute renal failure secondary to obstructive uropathy. The patient was seen in emergency department approximately 4 AM this morning, was noted after equal impaction with secondary urinary obstruction and UTI with possible gas-forming organism. The patient was administered Rocephin at that one time, was noted to have an elevated creatinine, and was advised she would need admission. However, the patient had a take her car home. She did have a Sheikh catheter placed at that time which did relieve the urinary obstruction, some of her symptoms did improve. She has had recent difficulty with bowel movements. She has been on GoLYTELY in the past for fecal impactions. She does complain of mild perirectal discomfort. She denies any fever. She does complain of some generalized weakness. Symptoms are moderate. PFSH Past Medical History Hx Anticoagulant Therapy: No Depression: Yes Cardiovascular Problems: No Chemotherapy: No Cerebrovascular Accident: No Diabetes: Yes Patient Takes Glucophage: Yes Diminished Hearing: No Psychiatric: Yes (DEPRESSION) Respiratory: No Immunizations Current: No Ulcer: Yes Tetanus Vaccination: < 5 Years Influenza Vaccination: No ?: Not : 1 Para: 1 Past Surgical History Hysterectomy: No Social History Alcohol Use: No Tobacco Use: Yes (4-5 CIGGS PER WEEK) Substance Use: No Allergies-Medications (Allergen,Severity, Reaction): Coded Allergies: No Known Allergies (Verified Adverse Reaction, Unknown, 09/08/17) Reported Meds & Prescriptions Reported Meds & Active Scripts Active Bactrim DS (Sulfamethoxazole-Trimethoprim) 800-160 Mg Tab 1 Tab PO BID Lisinopril 5 Mg Tab 5 Mg PO DAILY Glipizide 5 Mg Tab 5 Mg PO BIDAC Take 30 minutes before a meal Metformin (Metformin HCl) 1,000 Mg Tab 1,000 Mg PO BIDPC With meals Reported Amitriptyline (Amitriptyline HCl) 25 Mg Tab 25 Mg PO HS Review of Systems Except as stated in HPI: all other systems reviewed are Neg General / Constitutional: No: Fever Cardiovascular: No: Chest Pain or Discomfort Respiratory: No: Shortness of Breath Gastrointestinal: Positive: Abdominal Pain, Constipation, No: Nausea, Vomiting Genitourinary: Positive: Decreased Urinary Output Physical Exam Narrative GENERAL: Awake, alert, pleasant 57 year-old female who appears her stated age and is in no acute respiratory distress. SKIN: Focused skin assessment warm/dry. HEAD: Atraumatic. Normocephalic. EYES: No injection or drainage. ENT: No nasal bleeding or discharge. Mucous membranes pink and moist. NECK: Trachea midline. No JVD. CARDIOVASCULAR: Regular, tachycardic with a heart rate of 110. RESPIRATORY: No accessory muscle use. Clear to auscultation. Breath sounds equal bilaterally. GASTROINTESTINAL: Abdomen soft, obese, no rebound tenderness. Rectal: Hard cement-like stool in the rectal vault, unable to manually disimpact. MUSCULOSKELETAL: No obvious deformities. No clubbing. No cyanosis. No edema. NEUROLOGICAL: Awake and alert. No obvious cranial nerve deficits. Motor grossly within normal limits. Normal speech. PSYCHIATRIC: Appropriate mood and affect; insight and judgment normal. Data Data Last Documented VS Vital Signs Date Time Temp Pulse Resp B/P (MAP) Pulse Ox O2 Delivery O2 Flow Rate FiO2 09/08/17 08:50 116 17 168/93 (118) 98 Room Air 09/08/17 07:03 98.5 Orders Orders Complete Blood Count With Diff (09/08/17 07:28) Basic Metabolic Panel (Bmp) (09/08/17 07:28) Urinary Catheter Insert/Apply (09/08/17 07:28) Sodium Chlor 0.9% 1000 Ml Inj (Ns 1000 M (09/08/17 07:30) Urinalysis - C+S If Indicated (09/08/17 07:29) Lactic Acid (09/08/17 07:38) Blood Culture (09/08/17 07:38) Labetalol Inj (Trandate Inj) (09/08/17 08:45) Urine Culture (09/08/17 07:53) Labs Laboratory Tests Test 09/08/17 07:35 09/08/17 07:53 09/08/17 08:50 Lactic Acid Level 1.3 mmol/L Urine Color LIGHT-YELLOW Urine Turbidity CLEAR Urine pH 6.5 Urine Specific [place] 1.004 Urine Protein NEG mg/dL Urine Glucose (UA) 300 mg/dL Urine Ketones NEG mg/dL Urine Occult Blood SMALL Urine Nitrite NEG Urine Bilirubin NEG Urine Urobilinogen LESS THAN 2.0 MG/DL Urine Leukocyte Esterase LARGE Urine RBC 1 /hpf Urine WBC 54 /hpf Urine WBC Clumps FEW Urine Bacteria OCC /hpf Microscopic Urinalysis Comment CATH-CULTURE IND Blood Urea Nitrogen 25 MG/DL Creatinine 2.63 MG/DL Random Glucose 264 MG/DL Calcium Level 8.7 MG/DL Sodium Level 140 MEQ/L Potassium Level 4.1 MEQ/L Chloride Level 107 MEQ/L Carbon Dioxide Level 26.7 MEQ/L Anion Gap 6 MEQ/L Estimat Glomerular Filtration Rate 23 ML/MIN White Blood Count 12.3 TH/MM3 Red Blood Count 4.52 MIL/MM3 Hemoglobin 9.9 GM/DL Hematocrit 31.5 % Mean Corpuscular Volume 69.8 FL Mean Corpuscular Hemoglobin 21.9 PG Mean Corpuscular Hemoglobin Concent 31.4 % Red Cell Distribution Width 15.9 % Platelet Count 287 TH/MM3 Mean Platelet Volume 7.9 FL Neutrophils (%) (Auto) 79.0 % Lymphocytes (%) (Auto) 11.6 % Monocytes (%) (Auto) 8.1 % Eosinophils (%) (Auto) 0.6 % Basophils (%) (Auto) 0.7 % Neutrophils # (Auto) 9.7 TH/MM3 Lymphocytes # (Auto) 1.4 TH/MM3 Monocytes # (Auto) 1.0 TH/MM3 Eosinophils # (Auto) 0.1 TH/MM3 Basophils # (Auto) 0.1 TH/MM3 CBC Comment DIFF FINAL Differential Comment [facility] Medical Decision Making Medical Screen Exam Complete: Yes Emergency Medical Condition: Yes Medical Record Reviewed: Yes Interpretation(s) Laboratory Tests Test 09/08/17 07:35 09/08/17 07:53 09/08/17 08:50 Lactic Acid Level 1.3 mmol/L Urine Color LIGHT-YELLOW Urine Turbidity CLEAR Urine pH 6.5 Urine Specific [place] 1.004 Urine Protein NEG mg/dL Urine Glucose (UA) 300 mg/dL Urine Ketones NEG mg/dL Urine Occult Blood SMALL Urine Nitrite NEG Urine Bilirubin NEG Urine Urobilinogen LESS THAN 2.0 MG/DL Urine Leukocyte Esterase LARGE Urine RBC 1 /hpf Urine WBC 54 /hpf Urine WBC Clumps FEW Urine Bacteria OCC /hpf Microscopic Urinalysis Comment CATH-CULTURE IND Blood Urea Nitrogen 25 MG/DL Creatinine 2.63 MG/DL Random Glucose 264 MG/DL Calcium Level 8.7 MG/DL Sodium Level 140 MEQ/L Potassium Level 4.1 MEQ/L Chloride Level 107 MEQ/L Carbon Dioxide Level 26.7 MEQ/L Anion Gap 6 MEQ/L Estimat Glomerular Filtration Rate 23 ML/MIN White Blood Count 12.3 TH/MM3 Red Blood Count 4.52 MIL/MM3 Hemoglobin 9.9 GM/DL Hematocrit 31.5 % Mean Corpuscular Volume 69.8 FL Mean Corpuscular Hemoglobin 21.9 PG Mean Corpuscular Hemoglobin Concent 31.4 % Red Cell Distribution Width 15.9 % Platelet Count 287 TH/MM3 Mean Platelet Volume 7.9 FL Neutrophils (%) (Auto) 79.0 % Lymphocytes (%) (Auto) 11.6 % Monocytes (%) (Auto) 8.1 % Eosinophils (%) (Auto) 0.6 % Basophils (%) (Auto) 0.7 % Neutrophils # (Auto) 9.7 TH/MM3 Lymphocytes # (Auto) 1.4 TH/MM3 Monocytes # (Auto) 1.0 TH/MM3 Eosinophils # (Auto) 0.1 TH/MM3 Basophils # (Auto) 0.1 TH/MM3 CBC Comment DIFF FINAL Differential Comment Differential Diagnosis Differential diagnosis includes constipation, fecal impaction, urinary obstruction secondary to fecal impaction, acute renal failure, UTI, pyelonephritis, sepsis. Narrative Course IV was established, labs are drawn and sent, and the patient was placed on cardiac telemetry monitoring and continuous pulse oximetry monitoring. I reviewed the patient's EMR, UA was positive for UTI, CT reveals fecal impaction with urinary obstruction and bilateral hydronephrosis, possible gas-forming organism within the bladder. Creatinine was elevated greater than 3, patient is on glipizide, metformin, and listen appropriate. I did perform a rectal exam in the presence of a female nurse, patient had some mat hard stool in the rectal vault, I was unable to manually disimpact. Sheikh catheter was placed for secondary obstruction. Patient will need admission, may need manual disimpaction under conscious sedation and/or colonoscopy. Patient also will require antibiotics until cultures are completed. Patient received Rocephin 1 g intravenously at [address] Denney. The on-call medical team was paged for admission. Physician Communication Physician Communication The on-call medical service was paged for admission. I discussed the patient Dr. Mayers who agrees with admission to Dr. Bhat. Diagnosis Primary Impression: Obstructive uropathy Additional Impressions: Acute kidney injury UTI (urinary tract infection) Qualified Codes: N30.00 - Acute cystitis without hematuria Fecal impaction Admitting Information Admitting Physician Requests: Admit Condition: Stable Foreign Gutierrez MD Sep 08, 2017 07:38
[2017-09-08 08:43] LABS: BICARBONATE 26.7 MEQ/L (21.0-32.0); CALCIUM 8.7 MG/DL (8.5-10.1); CREATININE 2.63 MG/DL (0.50-1.00)
[2017-09-08] MEDS ORDERED: LABETALOL HCL 100 MG/20 ML VIAL IV PUSH ONE (08:45)
[2017-09-08 09:24] LABS: AUTOMATED NEUTROPHIL # 9.7 TH/MM3 (1.8-7.7); BASOPHIL # 0.1 TH/MM3 (0-0.2); BASOPHIL % 0.7 % (0.0-2.0); EOSINOPHIL # 0.1 TH/MM3 (0-0.4); EOSINOPHIL % 0.6 % (0.0-4.0); HEMATOCRIT 31.5 % (35.0-46.0); HEMOGLOBIN 9.9 GM/DL (11.6-15.3); LYMPH % 11.6 % (9.0-44.0); LYMPHOCYTE # 1.4 TH/MM3 (1.0-4.8); MEAN CELL VOLUME 69.8 FL (80.0-100.0); MEAN CORPUSCULAR HEMOGLOBIN 21.9 PG (27.0-34.0); MEAN CORPUSCULAR HGB CONC 31.4 % (32.0-36.0); MEAN PLATELET VOLUME 7.9 FL (7.0-11.0); MONO % 8.1 % (0.0-8.0); PLATELET COUNT 287 TH/MM3 (150-450); RED BLOOD COUNT 4.52 MIL/MM3 (4.00-5.30); RED CELL DISTRIBUTION WIDTH 15.9 % (11.6-17.2); WHITE BLOOD COUNT 12.3 TH/MM3 (4.0-11.0)
[2017-09-08 09:29] LABS: BACTERIA, URINE OCC /hpf; BILIRUBIN, URINE NEG (NEG); BLOOD, URINE SMALL (NEG); GLUCOSE,URINE 300 mg/dL (NEG); KETONE, URINE NEG (NEG); NITRITE,URINE NEG (NEG); PH, URINE 6.5 (5.0-8.5); URINE COLOR LIGHT-YELLOW (YELLW/STRAW); URINE LEUKOCYTE ESTERASE LARGE (NEG); WHITE BLOOD CELL CLUMPS FEW
[2017-09-08] MEDS ORDERED: SODIUM CHLORIDE 0.9% FLUSH 10 ML FLUSH IV FLUSH PRN (10:00)
[2017-09-08] MEDS ORDERED: ACETAMINOPHEN 325 MG TAB PO PRN (10:00)
[2017-09-08] MEDS ORDERED: SENNOSIDES 8.6 MG TAB PO PRN (10:00)
[2017-09-08] MEDS ORDERED: ONDANSETRON HCL 4 MG/2 ML VIAL IVP PRN (10:00)
[2017-09-08] MEDS ORDERED: BISACODYL 10 MG SUPP RECTAL PRN (10:00)
[2017-09-08] MEDS ORDERED: NALOXONE HCL 0.4 MG/ML AMP IV PUSH PRN (10:00)
[2017-09-08] MEDS ORDERED: LACTULOSE SYRUP 20 GM/30 ML CUP PO PRN (10:00)
[2017-09-08] MEDS ORDERED: MAGNESIUM HYDROXIDE SUSP 30 ML CUP PO PRN (10:00)
--- NOTE | 2017-09-08 10:11 | HHI.HP ---
HPI Service Family Medicine Primary Care Physician Dr Montiel Admission Diagnosis obstructive uropathy, acute renal failure, UTI, fecal impaction Diagnoses: Chief Complaint: abdominal pain International Travel<30 Days: No Contact w/Intl Traveler<30days: No Known Affected Area: No History of Present Illness Ms Nathan is a 57YO female with PMHx DM type 2, HTN, depression/anxiety and chronic constipation presents w/abdominal pain that began yesterday at 6PM right after her daily insulin shot. Pt states she takes 36 units in the evening , and right after her injection, she started experiencing acute pain below her stomach that was radiating around her left side to left flank area. The pain was 10/10 on pain scale, throbbing in nature. States she never had this type of pain before. Reports she has had chronic constipation for years, but is now really constipated with her last BM occurring last week (, 08/30/17). Indicates she has been constipated before and had to take GoLytely last year one time and never wants to take that again unless she has to. Normally she gets lots of gas but only a small amount of stool. She wears pullups and states she can go through 100 pullups per day and not have any appreciable amount of stool. She was first diagnosed with DM on October 22, 2012 when she passed out in her kitchen and then was taken to [facility] where she was found to be hyperglycemic. Her PCP had her on Metformin BID, but it wasn't controlling her blood glucose adequately, so started insulin 4 weeks ago and still takes Metformin 1000mg daily. She normally has no trouble voiding and this is first time having trouble voiding. Denies burning sensation, hematuria, incontinence, but states her urine has been foul smelling lately and was given Bactrim for a UTI a week or two ago and recently completed it. Other sxs as per ROS. (Javid Mayers MD R1) Review of Systems Constitutional: DENIES: Fever, Chills, Dizziness Endocrine: COMPLAINS OF: Polyuria Eyes: DENIES: Diplopia, Vision loss, Double Vision Ears, nose, mouth, throat: COMPLAINS OF: Throat pain (heartburn), DENIES: Nasal discharge, Oral lesions Respiratory: COMPLAINS OF: Cough, Sputum production (white phelgm), DENIES: Wheezing, Shortness of breath Cardiovascular: DENIES: Chest pain, Palpitations, Syncope Gastrointestinal: COMPLAINS OF: Abdominal pain, Constipation, DENIES: Black stools, Bloody stools, Diarrhea, Nausea, Vomiting Genitourinary: COMPLAINS OF: Urinary frequency, Nocturia (2x a night), DENIES: Urinary incontinence, Dysuria, Vaginal discharge Musculoskeletal: COMPLAINS OF: Back pain (LBP), DENIES: Muscle aches, Neck pain Integumentary: COMPLAINS OF: Rash (on chest), DENIES: Pruritus Neurologic: COMPLAINS OF: Localized weakness, DENIES: Headache, Paresthesias, Seizures Psychiatric: COMPLAINS OF: Anxiety, Depression (Javid Mayers MD R1) Past Family Social History Past Medical History DM Chronic constipation HTN Depression Anxiety Past Surgical History broken right ankle 187 Reported Medications Reported Meds & Active Scripts Active Bactrim DS (Sulfamethoxazole-Trimethoprim) 800-160 Mg Tab 1 Tab PO BID -- complete Lisinopril 5 Mg Tab 5 Mg PO DAILY Take 30 minutes before a meal Metformin (Metformin HCl) 1,000 Mg Tab 1,000 Mg PO daily With meals Reported Amitriptyline (Amitriptyline HCl) 2 x25 Mg Tab 50 Mg PO HS Calcium (Javid Mayers MD R1) Allergies: Coded Allergies: No Known Allergies (Verified Adverse Reaction, Unknown, 09/08/17) Active Ordered Medications Current Medications Medications (Trade) Dose Ordered Sig/Elroy Route Start Time Stop Time Status Last Admin Sodium Chloride 1,000 ml @ 140 mls/hr Q7H9M IV 09/08/17 10:00 (NS Flush) 2 ml UNSCH PRN IV FLUSH 09/08/17 10:00 (NS Flush) 2 ml BID IV FLUSH 09/08/17 21:00 (Tylenol) 650 mg Q4H PRN PO 09/08/17 10:00 (Zofran Inj) 4 mg Q6H PRN IVP 09/08/17 10:00 (Ambien) 5 mg HS PRN PO 09/08/17 10:00 (Heparin Inj) 5,000 units Q12H SQ 09/08/17 10:00 (Narcan Inj) 0.4 mg UNSCH PRN IV PUSH 09/08/17 10:00 (Debi-Colace) 1 tab BID PO 09/08/17 21:00 (Milk Of Magnesia Liq) 30 ml Q12H PRN PO 09/08/17 10:00 (Senokot) 17.2 mg Q12H PRN PO 09/08/17 10:00 (Dulcolax Supp) 10 mg DAILY PRN RECTAL 09/08/17 10:00 (Lactulose Liq) 30 ml DAILY PRN PO 09/08/17 10:00 Ceftriaxone Sodium 1000 mg/ Sodium Chloride 100 ml @ 200 mls/hr Q24H IV 09/09/17 09:15 UNV (Fleet Mineral Oil Enema) 118 ml ONCE ONCE RECTAL 09/08/17 10:30 09/08/17 10:31 Family History Mother - - CVA 1983 Father - - brain cancer / 1979 Social History EtOH - none since 1992 Tobacco - 1.5 cigarettes per day x 2 years Drugs - none Lives alone/[place] (Javid Mayers MD R1) Physical Exam Vital Signs Vital Signs Date Time Temp Pulse Resp B/P (MAP) Pulse Ox O2 Delivery O2 Flow Rate FiO2 09/08/17 08:50 116 17 168/93 (118) 98 Room Air 09/08/17 07:03 98.5 123 18 178/93 (121) 98 Physical Exam GENERAL: This is a pleasant, well-nourished, well-developed middle aged AAF lying in bed in no apparent distress. SKIN: No ecchymoses or lesions. Cool and dry. Fine powdery rash inferior to bilateral breasts. HEAD: Atraumatic. Normocephalic. No temporal or scalp tenderness. EYES: Pupils equal round and reactive. Extraocular motions intact. No scleral icterus. No injection or drainage. ENT: Nose without drainage. Throat without erythema, tonsillar hypertrophy or exudate. Uvula midline. Airway patent. No upper teeth. Lower dentition poor. NECK: Trachea midline. No JVD or lymphadenopathy. Supple, nontender, no meningeal signs. CARDIOVASCULAR: Regular rate and rhythm without murmurs, gallops, or rubs. RESPIRATORY: Clear to auscultation. Breath sounds equal bilaterally. No wheezes , rales, or rhonchi. BACK: No bony abnormalities, normal curvature; however, exquisitely TTP of left costovertebral margin. GASTROINTESTINAL: Abdomen soft, TTP in LUQ, nondistended. No hepato-splenomegaly , or palpable masses. Mild guarding in LUQ. Hypoactive BS. No tympany. MUSCULOSKELETAL: Extremities without clubbing, cyanosis, or edema. No joint tenderness, effusion, or edema noted. No calf tenderness. Reduced peripheral pulses in bilateral LEs. NEUROLOGICAL: Awake and alert. Cranial nerves II through XII intact. Motor and sensory grossly within normal limits. Normal speech. Laboratory Laboratory Tests Test 09/08/17 07:35 09/08/17 07:53 09/08/17 08:50 Lactic Acid Level 1.3 Urine Color LIGHT-YELLOW Urine Turbidity CLEAR Urine pH 6.5 Urine Specific [place] 1.004 Urine Protein NEG Urine Glucose (UA) 300 Urine Ketones NEG Urine Occult Blood SMALL Urine Nitrite NEG Urine Bilirubin NEG Urine Urobilinogen LESS THAN 2.0 Urine Leukocyte Esterase LARGE Urine RBC 1 Urine WBC 54 Urine WBC Clumps FEW Urine Bacteria OCC Microscopic Urinalysis Comment CATH-CULTURE IND Blood Urea Nitrogen 25 Creatinine 2.63 Random Glucose 264 Calcium Level 8.7 Sodium Level 140 Potassium Level 4.1 Chloride Level 107 Carbon Dioxide Level 26.7 Anion Gap 6 Estimat Glomerular Filtration Rate 23 White Blood Count 12.3 Red Blood Count 4.52 Hemoglobin 9.9 Hematocrit 31.5 Mean Corpuscular Volume 69.8 Mean Corpuscular Hemoglobin 21.9 Mean Corpuscular Hemoglobin Concent 31.4 Red Cell Distribution Width 15.9 Platelet Count 287 Mean Platelet Volume 7.9 Neutrophils (%) (Auto) 79.0 Lymphocytes (%) (Auto) 11.6 Monocytes (%) (Auto) 8.1 Eosinophils (%) (Auto) 0.6 Basophils (%) (Auto) 0.7 Neutrophils # (Auto) 9.7 Lymphocytes # (Auto) 1.4 Monocytes # (Auto) 1.0 Eosinophils # (Auto) 0.1 Basophils # (Auto) 0.1 CBC Comment DIFF FINAL Differential Comment Date/Time Source Procedure Growth Status 09/08/17 07:53 Blood Peripheral Aerobic Blood Culture Pending Received 09/08/17 07:53 Blood Peripheral Anaerobic Blood Culture Pending Received 09/08/17 07:53 Urine Clean Catch Urine Culture Pending Received (Javid Mayers MD R1) Result Diagram: 09/08/17 0850 09/08/17 0753 Septic Shock Reassessment Septic shock perfusion: reassessment completed (Javid Mayers MD R1) Caprini VTE Risk Assessment Caprini VTE Risk Assessment: No/Low Risk (score <= 1) Caprini Risk Assessment Model Point Value = 1 Point Value = 2 Point Value = 3 Point Value = 5 Age 41-60 Minor surgery BMI > 25 kg/m2 Swollen legs Varicose veins or History of unexplained or recurrent spontaneous Oral contraceptives or hormone replacement Sepsis (< 1 month) Serious lung disease, including pneumonia (< 1 month) Abnormal pulmonary function Acute myocardial infarction Congestive heart failure (< 1 month) History of inflammatory bowel disease Medical patient at bed rest Age 61-74 Arthroscopic surgery Major open surgery (> 45 min) Laparoscopic surgery (> 45 min) Malignancy Confined to bed (> 72 hours) Immobilizing plaster cast Central venous access Age >= 75 History of VTE Family history of VTE Factor V Leiden Prothrombin [id number] Lupus anticoagulant Anticardiolipin antibodies Elevated serum homocysteine Heparin-induced thrombocytopenia Other congenital or acquired thrombophilia Stroke (< 1 month) Elective arthroplasty Hip, pelvis, or leg fracture Acute spinal cord injury (< 1 month) Prophylaxis Regimen Total Risk Factor Score Risk Level Prophylaxis Regimen 0-1 Low Early ambulation 2 Moderate Order ONE of the following: *Sequential Compression Device (SCD) *Heparin 5000 units SQ BID 3-4 Higher Order ONE of the following medications: *Heparin 5000 units SQ TID *Enoxaparin/Lovenox 40 mg SQ daily (WT < 150 kg, CrCl > 30 mL/min) *Enoxaparin/Lovenox 30 mg SQ daily (WT < 150 kg, CrCl > 10-29 mL/min) *Enoxaparin/Lovenox 30 mg SQ BID (WT < 150 kg, CrCl > 30 mL/min) AND/OR *Sequential Compression Device (SCD) 5 or more Highest Order ONE of the following medications: *Heparin 5000 units SQ TID (Preferred with Epidurals) *Enoxaparin/Lovenox 40 mg SQ daily (WT < 150 kg, CrCl > 30 mL/min) *Enoxaparin/Lovenox 30 mg SQ daily (WT < 150 kg, CrCl > 10-29 mL/min) *Enoxaparin/Lovenox 30 mg SQ BID (WT < 150 kg, CrCl > 30 mL/min) AND *Sequential Compression Device (SCD) (Javid Mayers MD R1) Assessment and Plan Assessment and Plan 57YO female w/PMHx DM type 2, HTN, and chronic constipation p/w abdominal pain x1 day with CT abdomen/pelvis showing significant stool burden likely causing bilateral hydroureter and urinary obstruction with possible left ureter leak, air in the bladder and gas-forming pyelonephritis. GI consulted for stool disimpaction. Urology consulted for urinary obstruction. Consider emphysematous pyelonephritis 2/2 chronic constipation. Pt seen and dw Dr Lorin Bellamy Code Status FULL Code (Javid Mayers MD R1) Attending Attestation Patient seen and examined. Case reviewed and discussed with the resident team. Agree with plan of care as discussed with me and documented in the resident note. she was seen by me on the day of admission. appreciate her consultants (Amber Bhat MD) Problem List: (1) Fecal impaction ICD Codes: K56.41 - Fecal impaction Status: Acute Plan: CT scan showing fecal impaction causing urinary obstruction; pt has hx of chronic constipation -Disimpaction: -GI consulted--appreciate recs -Fleet enema prior to gastrograffin enema (as suggested by radiology) -Consider gastric emptying study following disimpaction (2) Obstructive uropathy ICD Codes: N13.9 - Obstructive and reflux uropathy, unspecified Status: Acute Plan: CT abdomen/pelvis showing obstructive uropathy with bilateral hydroureter and possible left ureter vs lower pole left kidney leak; also air in bladder -Urology consult--appreciate recs -UA showing large LE, small blood, neg nitrite with urine cx pending -Rocephin 1g IV given once in ED -Blood cx pending -WBC 12.3 (3) Hypertension ICD Codes: I10 - Essential (primary) hypertension Status: Acute Plan: Holding home dose lisinopril due to SANDY (Cr 2.53 on admit) as well as bilateral hydroureter (4) Acute kidney injury ICD Codes: N17.9 - Acute kidney failure, unspecified Status: Acute Plan: BUN 25 / Cr 2.63 on admit with BL Cr 0.71 on 03/20/17; after alcaraz placed last night pt had copious amount of urine out (2900ml); expect this will correct as obstruction is cleared (5) Diabetes mellitus ICD Codes: E11.9 - Type 2 diabetes mellitus without complications Status: Acute Plan: Pt on insulin 36 units hs and Metformin 1000mg PO daily; pt states she discontinued glipizide recently; last A1C 12.6 09/17/15 -Hold home insulin and Metformin -Low SSI -Accuchecks -A1c pending (6) Anxiety and depression ICD Codes: F41.9 - Anxiety disorder, unspecified; F32.9 - Major depressive disorder, single episode, unspecified Plan: Continue home amitriptyline 50mg hs (7) Microcytic anemia ICD Codes: D50.9 - Microcytic anemia Status: Acute Plan: Hgb 9.9 with MCV 69.8; pt indicates she took Iron in the past -Hold on FeSO4 due to constipation (8) FEN/GI/PPx Status: Acute Plan: Fluids: NS IVF @140ml/hr Electrolytes: wnl; will monitor daily and replete as necessary Nutrition: Diabetic diet GI: hold PPI for now; as per GI consult PPx: Heparin 5000 units subcu Bowel regimen: as above fleet enema followed by gastrograffin enema (Javid Mayers MD R1) Physician Certification 2 Midnight Certification Type: Admission for Inpatient Services Order for Inpatient Services The services are ordered in accordance with Medicare regulations or non- Medicare payer requirements, as applicable. In the case of services not specified as inpatient-only, they are appropriately provided as inpatient services in accordance with the 2-midnight benchmark. Estimated LOS (days): 2 days is the estimated time the patient will need to remain in the hospital, assuming treatment plan goals are met and no additional complications. Post-Hospital Plan: Home (Javid Mayers MD R1) Problem Qualifiers (1) Hypertension: Qualified Codes: I10 - Essential (primary) hypertension (2) Diabetes mellitus: Javid Mayers MD R1 Sep 08, 2017 10:11 Amber Bhat MD Sep 09, 2017 12:21
[2017-09-08] MEDS ORDERED: DEXTROSE 50% IN WATER 50 ML VIAL(D50) IV PUSH PRN (10:30)
[2017-09-08] MEDS ORDERED: GLUCAGON 1 MG/ML VIAL OTHER PRN (10:30)
[2017-09-08] MEDS ORDERED: MINERAL OIL ENEMA 118 ML BTL RECTAL ONE (10:30)
[2017-09-08] MEDS: HEPARIN SODIUM - SQ 10,000 UNITS/ML VIAL SQ SCH ×2 (10:38→21:26)
[2017-09-08] MEDS: INSULIN ASPART SUPPLEMENTAL SCALE SQ SCH ×3 (12:00→21:49)
--- NOTE | 2017-09-08 13:06 | PD.CONS ---
HPI History of Present Illness This is a 57 year old female with PMHx DM type 2, HTN, depression/anxiety and chronic constipation presents to [facility] with abdominal pain and constipation. she started experiencing acute lower abd pain that was radiating around her left side to left flank area. The pain was 10/10 on pain scale, throbbing in nature. Reports she has had chronic constipation for years, and she has been taking stool softeners, miralax and MOM as needed. Now really constipated with her last BM occurring last week. Reports similar episode last yr, having to drink GoLytely with good results. She wears depends due to constant leakage of stools. She has been having difficultly urinating as well. She reports one episode of vomiting on . Never had colonoscopy before. CT abdomen/ pelvis showing significant stool burden likely causing bilateral hydroureter and urinary obstruction with possible left ureter leak, air in the bladder and gas-forming pyelonephritis. Urology consulted. Denies hematemesis, or hematochezia or hematuria. (Guillermo Hermosillo) PFSH Past Medical History DM Chronic constipation HTN Depression Anxiety Past Surgical History broken right ankle 187 left knee placement (Guillermo Hermosillo) Coded Allergies: No Known Allergies (Verified Adverse Reaction, Unknown, 09/08/17) Medications Current Medications Medications (Trade) Dose Ordered Sig/Elroy Route Start Time Stop Time Status Last Admin Sodium Chloride 1,000 ml @ 140 mls/hr Q7H9M IV 09/08/17 10:00 (NS Flush) 2 ml UNSCH PRN IV FLUSH 09/08/17 10:00 (NS Flush) 2 ml BID IV FLUSH 09/08/17 21:00 (Tylenol) 650 mg Q4H PRN PO 09/08/17 10:00 (Zofran Inj) 4 mg Q6H PRN IVP 09/08/17 10:00 (Ambien) 5 mg HS PRN PO 09/08/17 10:00 (Heparin Inj) 5,000 units Q12H SQ 09/08/17 10:00 09/08/17 10:38 (Narcan Inj) 0.4 mg UNSCH PRN IV PUSH 09/08/17 10:00 (Debi-Colace) 1 tab BID PO 09/08/17 21:00 (Milk Of Magnesia Liq) 30 ml Q12H PRN PO 09/08/17 10:00 (Senokot) 17.2 mg Q12H PRN PO 09/08/17 10:00 (Dulcolax Supp) 10 mg DAILY PRN RECTAL 09/08/17 10:00 (Lactulose Liq) 30 ml DAILY PRN PO 09/08/17 10:00 Ceftriaxone Sodium 1000 mg/ Sodium Chloride 100 ml @ 200 mls/hr Q24H IV 09/09/17 09:00 (D50w (Vial) Inj) 50 ml UNSCH PRN IV PUSH 09/08/17 10:30 (Glucagon Inj) 1 mg UNSCH PRN OTHER 09/08/17 10:30 (NovoLOG SUPPLEMENTAL SCALE) 1 ACHS SLIDING SCALE SQ 09/08/17 12:00 (Elavil) 25 mg HS PO 09/08/17 21:00 Family History No family hx of colon cancer Social History No alcohol No smoking (Guillermo Hermosillo) Review of Systems Constitutional: DENIES: Change in appetite Endocrine: DENIES: Polyuria Eyes: DENIES: Double Vision Ears, nose, mouth, throat: DENIES: Hoarseness Respiratory: DENIES: Shortness of breath Cardiovascular: DENIES: Lower Extremity Edema Gastrointestinal: COMPLAINS OF: Abdominal pain, Constipation, Nausea, Vomiting , Heartburn, DENIES: Black stools, Bloody stools, Diarrhea, Difficulty Swallowing, Anorexia, Odynophagia, Swelling of Abdomen, Hematemesis Genitourinary: DENIES: Hematuria Musculoskeletal: COMPLAINS OF: Back pain Integumentary: DENIES: Jaundice Hematologic/lymphatic: DENIES: Bruising Immunologic/allergic: DENIES: Eczema Neurologic: DENIES: Abnormal gait Psychiatric: DENIES: Anxiety (Guillermo Hermosillo) GI Exam Vitals I&O Vital Signs Date Time Temp Pulse Resp B/P (MAP) Pulse Ox O2 Delivery O2 Flow Rate FiO2 09/08/17 10:41 101 135/79 (97) 09/08/17 08:50 116 17 168/93 (118) 98 Room Air 09/08/17 07:03 98.5 123 18 178/93 (121) 98 I/O 09/07/17 09/07/17 09/07/17 09/08/17 09/08/17 09/08/17 07:00 15:00 23:00 07:00 15:00 23:00 Output Total 2900 ml Balance -2900 ml Output Urine Total 2900 ml # Voids 0 Laboratory Test 09/08/17 07:35 09/08/17 07:53 09/08/17 08:50 Lactic Acid Level 1.3 mmol/L Urine Color LIGHT-YELLOW Urine Turbidity CLEAR Urine pH 6.5 Urine Specific [place] 1.004 Urine Protein NEG mg/dL Urine Glucose (UA) 300 mg/dL Urine Ketones NEG mg/dL Urine Occult Blood SMALL Urine Nitrite NEG Urine Bilirubin NEG Urine Urobilinogen LESS THAN 2.0 MG/DL Urine Leukocyte Esterase LARGE Urine RBC 1 /hpf Urine WBC 54 /hpf Urine WBC Clumps FEW Urine Bacteria OCC /hpf Microscopic Urinalysis Comment CATH-CULTURE IND Blood Urea Nitrogen 25 MG/DL Creatinine 2.63 MG/DL Random Glucose 264 MG/DL Calcium Level 8.7 MG/DL Sodium Level 140 MEQ/L Potassium Level 4.1 MEQ/L Chloride Level 107 MEQ/L Carbon Dioxide Level 26.7 MEQ/L Anion Gap 6 MEQ/L Estimat Glomerular Filtration Rate 23 ML/MIN White Blood Count 12.3 TH/MM3 Red Blood Count 4.52 MIL/MM3 Hemoglobin 9.9 GM/DL Hematocrit 31.5 % Mean Corpuscular Volume 69.8 FL Mean Corpuscular Hemoglobin 21.9 PG Mean Corpuscular Hemoglobin Concent 31.4 % Red Cell Distribution Width 15.9 % Platelet Count 287 TH/MM3 Mean Platelet Volume 7.9 FL Neutrophils (%) (Auto) 79.0 % Lymphocytes (%) (Auto) 11.6 % Monocytes (%) (Auto) 8.1 % Eosinophils (%) (Auto) 0.6 % Basophils (%) (Auto) 0.7 % Neutrophils # (Auto) 9.7 TH/MM3 Lymphocytes # (Auto) 1.4 TH/MM3 Monocytes # (Auto) 1.0 TH/MM3 Eosinophils # (Auto) 0.1 TH/MM3 Basophils # (Auto) 0.1 TH/MM3 CBC Comment DIFF FINAL Differential Comment Date/Time Source Procedure Growth Status 09/08/17 07:53 Blood Peripheral Aerobic Blood Culture Pending Received 09/08/17 07:53 Blood Peripheral Anaerobic Blood Culture Pending Received 09/08/17 07:53 Urine Clean Catch Urine Culture Pending Received Physical Examination HEENT: Pupils round and reactive to light; normocephalic; NECK: Neck is supple, no JVD, no lymphadenopathy. CHEST: Chest is clear to auscultation and percussion. CARDIAC: Regular rate and rhythm with no murmur gallop or rubs. ABDOMEN: Soft, nondistended, lower abd tenderness; no hepatosplenomegaly; bowel sounds are present in all four quadrants. EXTREMITIES: No clubbing, cyanosis, or edema. SKIN: Normal; no rash; no jaundice. ENGLISH PROFESSOR: No focal deficits; alert and oriented times three. (Guillermo Hermosillo) Assessment and Plan Plan - Fecal impaction- Last BM a week ago, Reports she has had chronic constipation for years, and she has been taking stool softeners, miralax and MOM as needed. Now really constipated with her last BM occurring last week. Reports similar episode last yr, having to drink GoLytely with good results. She wears depends due to constant leakage of stools. She has been having difficultly urinating as well. She reports one episode of vomiting on . Never had colonoscopy before. CT abdomen/pelvis showing significant stool burden likely causing bilateral hydroureter and urinary obstruction with possible left ureter leak, air in the bladder and gas- forming pyelonephritis. Urology consulted. - Urinary obstruction with possible left ureter leak, air in the bladder and gas-forming pyelonephritis. Urology consulted. - Leukocytosis- Hx of recent UTI, urine and blood cx pending, on abx - Anemia- Denies hematemesis, or hematochezia or hematuria. Could be anemia of chronic dz, DM, CKD - Hx DM type 2, HTN, depression/anxiety Per attending Plan: - Gastro grafin enema diagnostic and therapeutic - Consider Colonoscopy at some point - Bowel regimen - Supportive care - Patient seen and examined by Dr. Sanchez and myself and this note is written on his behalf. (Guillermo Hermosillo) Physician Comments Seen and examined, plan as above. GGE and if no response will consider colonoscopy and bowel prep. Thank you for the consult. (Vahid Sanchez MD) Guillermo Hermosillo Sep 08, 2017 13:06 Vahid Sanchez MD Sep 08, 2017 13:22
--- NOTE | 2017-09-08 13:50 | PD.CONS ---
HPI Service Urology Consult Requested By Reason for Consult Retention, Left ureteral leak? Primary Care Physician Unknown Diagnosis: History of Present Illness 57yo female with history of DM admitted due to abdominal pain. She has had issues with constipation and found to have significant stool impaction on recent CT. She also has had difficulty in voiding with distended bladder noted on CT scan as well. Previously no issues voiding. No hematuria. No history of recurrent UTIs. CT scan read also identifies concern for left ureteral injury/ leak, however noncontrasted study Review of Systems ROS Limitations: Clinical Condition Constitutional: DENIES: Fever Ears, nose, mouth, throat: DENIES: Hearing loss Respiratory: DENIES: Cough Cardiovascular: DENIES: Chest pain Gastrointestinal: COMPLAINS OF: Abdominal pain, Constipation Genitourinary: COMPLAINS OF: Urinary incontinence, DENIES: Hematuria Neurologic: DENIES: Headache Psychiatric: DENIES: Anxiety Except as stated in HPI: all other systems reviewed are Neg Past Family Social History Past Medical History DM Chronic constipation HTN Depression Anxiety Past Surgical History broken right ankle 187 Reported Medications Reported Meds & Active Scripts Active Lisinopril 5 Mg Tab 5 Mg PO DAILY Glipizide 5 Mg Tab 5 Mg PO BIDAC Take 30 minutes before a meal Metformin (Metformin HCl) 1,000 Mg Tab 1,000 Mg PO BIDPC With meals Reported Amitriptyline (Amitriptyline HCl) 25 Mg Tab 50 Mg PO HS Allergies: Coded Allergies: No Known Allergies (Verified Adverse Reaction, Unknown, 09/08/17) Active Ordered Medications Current Medications Medications (Trade) Dose Ordered Sig/Elroy Route Start Time Stop Time Status Last Admin Sodium Chloride 1,000 ml @ 70 mls/hr [id number] IV 09/08/17 10:00 09/10/17 06:02 (NS Flush) 2 ml UNSCH PRN IV FLUSH 09/08/17 10:00 (NS Flush) 2 ml BID IV FLUSH 09/08/17 21:00 09/10/17 08:41 (Tylenol) 650 mg Q4H PRN PO 09/08/17 10:00 (Zofran Inj) 4 mg Q6H PRN IVP 09/08/17 10:00 (Ambien) 5 mg HS PRN PO 09/08/17 10:00 09/09/17 22:18 (Heparin Inj) 5,000 units Q12H SQ 09/08/17 10:00 09/10/17 10:25 (Narcan Inj) 0.4 mg UNSCH PRN IV PUSH 09/08/17 10:00 (Debi-Colace) 1 tab BID PO 09/08/17 21:00 09/09/17 09:34 (Milk Of Magnesia Liq) 30 ml Q12H PRN PO 09/08/17 10:00 (Senokot) 17.2 mg Q12H PRN PO 09/08/17 10:00 (Dulcolax Supp) 10 mg DAILY PRN RECTAL 09/08/17 10:00 Ceftriaxone Sodium 1000 mg/ Sodium Chloride 100 ml @ 200 mls/hr Q24H IV 09/09/17 09:00 09/10/17 09:39 (D50w (Vial) Inj) 50 ml UNSCH PRN IV PUSH 09/08/17 10:30 (Glucagon Inj) 1 mg UNSCH PRN OTHER 09/08/17 10:30 (NovoLOG SUPPLEMENTAL SCALE) 1 ACHS SLIDING SCALE SQ 09/08/17 12:00 09/10/17 08:41 (Elavil) 25 mg HS PO 09/08/17 21:00 09/09/17 22:19 (Daphne 5-325 Mg) 1 tab Q6H PRN PO 09/08/17 16:15 (Daphne 7.5-325 Mg) 1 tab Q6H PRN PO 09/08/17 16:15 09/10/17 08:42 (Morphine Inj) 2 mg Q3H PRN IV PUSH 09/08/17 16:15 09/09/17 17:53 (Catapres) 0.1 mg Q6H PRN PO 09/09/17 17:30 09/10/17 00:07 (Lactulose Liq) 30 ml DAILY PO 09/13/17 09:00 Family History Mother - - CVA 1983 Father - - brain cancer / 1979 Social History EtOH - none since 1992 Tobacco - 1.5 cigarettes per day x 2 years Drugs - none Lives alone/[place] Physical Exam Vital Signs Date Time Temp Pulse Resp B/P (MAP) Pulse Ox O2 Delivery O2 Flow Rate FiO2 09/08/17 12:00 97.5 100 22 166/81 (109) 100 09/08/17 10:41 101 135/79 (97) 09/08/17 08:50 116 17 168/93 (118) 98 Room Air 09/08/17 07:03 98.5 123 18 178/93 (121) 98 Physical Exam GENERAL: This is a well-nourished, well-developed patient, in no apparent distress. SKIN: No rashes, ecchymoses or lesions. Cool and dry. HEAD: Atraumatic. Normocephalic. EYES: Pupils equal round and reactive. Extraocular motions intact. No scleral icterus. No injection or drainage. ENT: Nose without bleeding, purulent drainage. Airway patent. NECK: Trachea midline. No JVD or lymphadenopathy. CARDIOVASCULAR: Normal pulse RESPIRATORY: Nonlabored GASTROINTESTINAL: Abdomen soft, non-tender, nondistended. MUSCULOSKELETAL: Extremities without clubbing, cyanosis, or edema. . NEUROLOGICAL: Awake and alert. Motor and sensory grossly within normal limits. Normal speech. Lab results reviewed: Yes Laboratory Tests Test 09/08/17 07:35 09/08/17 07:53 09/08/17 08:50 Lactic Acid Level 1.3 Urine Color LIGHT-YELLOW Urine Turbidity CLEAR Urine pH 6.5 Urine Specific [place] 1.004 Urine Protein NEG Urine Glucose (UA) 300 Urine Ketones NEG Urine Occult Blood SMALL Urine Nitrite NEG Urine Bilirubin NEG Urine Urobilinogen LESS THAN 2.0 Urine Leukocyte Esterase LARGE Urine RBC 1 Urine WBC 54 Urine WBC Clumps FEW Urine Bacteria OCC Microscopic Urinalysis Comment CATH-CULTURE IND Blood Urea Nitrogen 25 Creatinine 2.63 Random Glucose 264 Calcium Level 8.7 Sodium Level 140 Potassium Level 4.1 Chloride Level 107 Carbon Dioxide Level 26.7 Anion Gap 6 Estimat Glomerular Filtration Rate 23 White Blood Count 12.3 Red Blood Count 4.52 Hemoglobin 9.9 Hematocrit 31.5 Mean Corpuscular Volume 69.8 Mean Corpuscular Hemoglobin 21.9 Mean Corpuscular Hemoglobin Concent 31.4 Red Cell Distribution Width 15.9 Platelet Count 287 Mean Platelet Volume 7.9 Neutrophils (%) (Auto) 79.0 Lymphocytes (%) (Auto) 11.6 Monocytes (%) (Auto) 8.1 Eosinophils (%) (Auto) 0.6 Basophils (%) (Auto) 0.7 Neutrophils # (Auto) 9.7 Lymphocytes # (Auto) 1.4 Monocytes # (Auto) 1.0 Eosinophils # (Auto) 0.1 Basophils # (Auto) 0.1 CBC Comment DIFF FINAL Differential Comment Date/Time Source Procedure Growth Status 09/08/17 07:53 Blood Peripheral Aerobic Blood Culture Pending Received 09/08/17 07:53 Blood Peripheral Anaerobic Blood Culture Pending Received 09/08/17 07:53 Urine Clean Catch Urine Culture Pending Received Result Diagram: 09/08/17 0850 09/08/17 0753 Personally reviewed images: Yes Imaging Last 72 hours Impressions Enema w/Water Soluble 09/09/17 0000 Signed Impressions: Service Date/Time: Saturday, September 09, 2017 08:47 - CONCLUSION: Significant amount retained stool identified in the rectosigmoid colon. Reji Porter MD CT: CT abdomen/pelvis showing significant stool burden likely causing bilateral hydroureter and urinary obstruction with possible left ureter leak, air in the bladder and gas- forming pyelonephritis. Assessment and Plan Problem List: (1) DM type 2, uncontrolled, with neuropathy ICD Code: E11.40 - Uncontrolled type 2 diabetes with neuropathy; E11.65 - Type 2 diabetes mellitus with hyperglycemia Status: Acute (2) Obstructive uropathy ICD Code: N13.9 - Obstructive and reflux uropathy, unspecified Status: Acute (3) UTI (urinary tract infection) ICD Code: N39.0 - Urinary tract infection, site not specified Status: Acute Assessment and Plan Images reviewed, noncontrast CT scan. No obvious ureteral injury or leak. There is small fluid collection with stranding around left proximal ureter. This may be due to forniceal rupture and/or infection Given history of DM and retention, CT findings may be due to infection with pyelonephritis vs retention Maintain alcaraz catheter in place, continue abx No surgical intervention at this time Patient may undergo voiding trial prior to discharge once constipation resolved. However, if unable to void may replace catheter Followup with Urology in clinic further evaluation her lower urinary tract symptoms, retention, and left ureter Please call with questions Problem Qualifiers (1) UTI (urinary tract infection): Qualified Codes: N30.00 - Acute cystitis without hematuria Hua Perez MD Sep 08, 2017 13:50
[2017-09-08] MEDS: SODIUM CHLOR 0.9% 1000 ML INJ 1,000 ML IV SCH ×3 (14:00→21:49)
[2017-09-08] MEDS ORDERED: ACETAMINOPHEN/HYDROcodone 325 MG/5 MG TAB PO PRN (16:15)
[2017-09-08] MEDS: ACETAMINOPHEN/HYDROcodone 325 MG/7.5 MG TAB PO PRN (18:14)
[2017-09-08] MEDS: MORPHINE SULFATE 2 MG/ML INJ IV PUSH PRN (19:27)
[2017-09-08] MEDS: SODIUM CHLORIDE 0.9% FLUSH 10 ML FLUSH IV FLUSH SCH (21:00)
[2017-09-08] MEDS: AMITRIPTYLINE HCL 25 MG TAB PO SCH (21:27)
[2017-09-08] MEDS: DOCUSATE SODIUM 50 MG/SENNA 8.6 MG TAB PO SCH (21:27)
[2017-09-09] VITALS (9 sets, daily range): BP systolic 115–185; BP diastolic 67–98; PULSE 62–111; RESP 18–25; TEMP 96.8–99.2; O2SAT 95–100
[2017-09-09] MEDS: SODIUM CHLOR 0.9% 1000 ML INJ 1,000 ML IV SCH ×2 (05:51→22:17)
[2017-09-09] MEDS: INSULIN ASPART SUPPLEMENTAL SCALE SQ SCH ×4 (08:00→21:00)
[2017-09-09 08:46] LABS: AUTOMATED NEUTROPHIL # 5.7 TH/MM3 (1.8-7.7); BASOPHIL # 0.1 TH/MM3 (0-0.2); BASOPHIL % 0.6 % (0.0-2.0); EOSINOPHIL # 0.3 TH/MM3 (0-0.4); EOSINOPHIL % 2.9 % (0.0-4.0); HEMATOCRIT 32.6 % (35.0-46.0); HEMOGLOBIN 10.4 GM/DL (11.6-15.3); LYMPH % 27.5 % (9.0-44.0); LYMPHOCYTE # 2.5 TH/MM3 (1.0-4.8); MEAN CELL VOLUME 69.9 FL (80.0-100.0); MEAN CORPUSCULAR HEMOGLOBIN 22.2 PG (27.0-34.0); MEAN CORPUSCULAR HGB CONC 31.8 % (32.0-36.0); MEAN PLATELET VOLUME 7.9 FL (7.0-11.0); MONO % 7.1 % (0.0-8.0); MONOCYTE # 0.6 TH/MM3 (0-0.9); NEUT % 61.9 % (16.0-70.0); PLATELET COUNT 294 TH/MM3 (150-450); RED BLOOD COUNT 4.66 MIL/MM3 (4.00-5.30); RED CELL DISTRIBUTION WIDTH 15.9 % (11.6-17.2); WHITE BLOOD COUNT 9.2 TH/MM3 (4.0-11.0)
[2017-09-09] MEDS: SODIUM CHLORIDE 0.9% FLUSH 10 ML FLUSH IV FLUSH SCH ×2 (09:00→21:00)
[2017-09-09 09:14] LABS: ALBUMIN 2.4 GM/DL (3.4-5.0); ALKALINE PHOSPHATASE 238 U/L (45-117); ALT (GPT) 16 U/L (10-53); AST (GOT) 11 U/L (15-37); BICARBONATE 24.3 MEQ/L (21.0-32.0); BLOOD UREA NITROGEN 12 MG/DL (7-18); CALCIUM 8.7 MG/DL (8.5-10.1); CHLORIDE 113 MEQ/L (98-107); CREATININE 1.24 MG/DL (0.50-1.00); GLOMERULAR FILTRATION RATE 54 ML/MIN (>89); GLUCOSE,RANDOM 102 MG/DL (74-106); SODIUM (NA) 144 MEQ/L (136-145); TOTAL BILIRUBIN ADULT 0.3 MG/DL (0.2-1.0); TOTAL PROTEIN 6.6 GM/DL (6.4-8.2)
[2017-09-09] MEDS: DOCUSATE SODIUM 50 MG/SENNA 8.6 MG TAB PO SCH ×2 (09:34→21:00)
[2017-09-09] MEDS: cefTRIAXone INJ 1,000 MG in SODIUM CHLORIDE 0.9% INJ 100 ML IV SCH (09:34)
--- NOTE | 2017-09-09 09:35 | RADRPT ---
EXAM DATE/TIME: 09/09/2017 08:47 [facility] COMPARISON: No previous studies available for comparison. INDICATIONS : Constipation. FLUORO TIME: 3.1 minutes IMAGE COUNT: 11 CONTRAST: 1. [facility] MEDICAL HISTORY : Diabetes mellitus type 2. Hypertension. SURGICAL HISTORY : Diabetes mellitus type 2. Hypertension. ENCOUNTER: Initial ACUITY: 2 days PAIN SCORE: 3/10 LOCATION: Abdomen. FINDINGS: Preliminary film is unremarkable. Under fluoroscopic guidance a Gastrografin enema was performed with free flow of contrast to the sple viola flexure. Moderate amount retained stool is identified in the rectum and sigmoid colon. Patient was unable to tolerate any additional installation of contrast. CONCLUSION: Significant amount retained stool identified in the rectosigmoid colon. Reji Porter MD on September 09, 2017 at 9:31 Board Certified Radiologist. This report was verified electronically.
[2017-09-09] MEDS: HEPARIN SODIUM - SQ 10,000 UNITS/ML VIAL SQ SCH ×2 (09:38→22:20)
--- NOTE | 2017-09-09 11:35 | HHI.HP ---
HPI Service Family Medicine Primary Care Physician Unknown Admission Diagnosis obstructive uropathy, acute renal failure, UTI, fecal impaction Diagnoses: (1) Fecal impaction Diagnosis: Principal (2) Obstructive uropathy Diagnosis: Principal (3) Hypertension Diagnosis: Principal (4) Acute kidney injury Diagnosis: Principal (5) Diabetes mellitus Diagnosis: Principal (6) Anxiety and depression Diagnosis: Principal (7) Microcytic anemia Diagnosis: Principal (8) FEN/GI/PPx Diagnosis: Principal International Travel<30 Days: No Contact w/Intl Traveler<30days: No Known Affected Area: No History of Present Illness Ms Nathan is a 57YO female with PMHx DM type 2, HTN, depression/anxiety and chronic constipation presented w/abdominal pain that began the day before her admission at 6PM right after her daily insulin shot. Pt states she takes 36 units in the evening, and right after her injection, she started experiencing acute pain below her stomach that was radiating around her left side to left flank area. The pain was 10/10 on pain scale, throbbing in nature. States she never had this type of pain before. Reports she has had chronic constipation since May but before that she had normal daily bowel movements, but was now really constipated with her last BM occurring last week (, 08/30/17). Indicates she has been constipated before and had to take GoLytely last year one time and never wants to take that again unless she has to. Normally she gets lots of gas but only a small amount of stool. She wears pullups and states she can go through 100 pullups per day and not have any appreciable amount of stool. She was first diagnosed with DM on October 22, 2012 when she passed out in her kitchen and then was taken to [facility] where she was found to be hyperglycemic. Her PCP had her on Metformin BID, but it wasn't controlling her blood glucose adequately and her HbA1C was 15, so started insulin 4 weeks ago and still takes Metformin 1000mg daily. She normally has no trouble voiding and this is first time having trouble voiding. Denies burning sensation, hematuria, incontinence, but states her urine has been foul smelling lately and was given Bactrim for a UTI a week or two ago and recently completed it. Other sxs as per ROS. She had no result from her enemas so she went to radiology and had Gastrografin which is currently working well. She has had multiple stools today and is feeling improved. She had urinary obstruction as well on admission and has a alcaraz catheter which is draining well this am with some sediment. Her CA 125 was normal though she has an adnexal mass on her CT scan. Review of Systems Other Constitutional: DENIES: Fever, Chills, Dizziness Endocrine: COMPLAINS OF: Polyuria Eyes: DENIES: Diplopia, Vision loss, Double Vision Ears, nose, mouth, throat: COMPLAINS OF: Throat pain (heartburn), DENIES: Nasal discharge, Oral lesions Respiratory: COMPLAINS OF: Cough, Sputum production (white phelgm), DENIES: Wheezing, Shortness of breath Cardiovascular: DENIES: Chest pain, Palpitations, Syncope Gastrointestinal: COMPLAINS OF: Abdominal pain, Constipation, DENIES: Black stools, Bloody stools, Diarrhea, Nausea, Vomiting Genitourinary: COMPLAINS OF: Urinary frequency, Nocturia (2x a night), DENIES: Urinary incontinence, Dysuria, Vaginal discharge Musculoskeletal: COMPLAINS OF: Back pain (LBP), DENIES: Muscle aches, Neck pain Integumentary: COMPLAINS OF: Rash (on chest), DENIES: Pruritus Neurologic: COMPLAINS OF: Localized weakness, DENIES: Headache, Paresthesias, Seizures Psychiatric: COMPLAINS OF: Anxiety, Depression Past Family Social History Past Medical History DM Chronic constipation HTN Depression Anxiety Past Surgical History broken right ankle Allergies: Coded Allergies: No Known Allergies (Verified Adverse Reaction, Unknown, 09/08/17) Family History Mother - - CVA 1983 Father - - brain cancer / 1979 Social History EtOH - none since 1992 Tobacco - 1.5 cigarettes per day x 2 years Drugs - none Lives alone/[place] Physical Exam Vital Signs Vital Signs Date Time Temp Pulse Resp B/P (MAP) Pulse Ox O2 Delivery O2 Flow Rate FiO2 09/09/17 08:00 99.2 102 22 147/89 (108) 95 09/09/17 08:00 109 09/09/17 07:00 Room Air 09/09/17 04:30 Room Air 09/09/17 04:30 97.9 107 18 159/77 (104) 96 09/09/17 04:04 110 09/09/17 00:00 97.8 104 20 147/80 (102) 99 09/09/17 00:00 Room Air 09/08/17 23:48 107 09/08/17 20:45 114 09/08/17 20:00 98.3 108 20 154/77 (102) 100 09/08/17 20:00 Room Air 09/08/17 19:13 113 117/83 (94) 09/08/17 16:00 98.1 99 22 174/85 (114) 100 09/08/17 12:00 97.5 100 22 166/81 (109) 100 Physical Exam GENERAL: This is a pleasant, well-nourished, well-developed middle aged AAF lying in bed in no apparent distress except for intermittent diarrhea this am. SKIN: No ecchymoses or lesions. Cool and dry. Fine powdery rash inferior to bilateral breasts. HEAD: Atraumatic. Normocephalic. No temporal or scalp tenderness. EYES: Pupils equal round and reactive. Extraocular motions intact. No scleral icterus. No injection or drainage. ENT: Nose without drainage. Throat without erythema, tonsillar hypertrophy or exudate. Uvula midline. Airway patent. No upper teeth. Lower dentition poor. NECK: Trachea midline. No JVD or lymphadenopathy. Supple, nontender, no meningeal signs. CARDIOVASCULAR: Regular rate and rhythm without murmurs, gallops, or rubs. RESPIRATORY: Clear to auscultation. Breath sounds equal bilaterally. No wheezes , rales, or rhonchi. BACK: No bony abnormalities, normal curvature; however, exquisitely TTP of left costovertebral margin. GASTROINTESTINAL: Abdomen soft, nondistended. No hepato-splenomegaly, or palpable masses. Hyperactive BS. No tympany. MUSCULOSKELETAL: Extremities without clubbing, cyanosis, or edema. No joint tenderness, effusion, or edema noted. No calf tenderness. Reduced peripheral pulses in bilateral LEs. NEUROLOGICAL: Awake and alert. Cranial nerves II through XII intact. Motor and sensory grossly within normal limits. Normal speech. Laboratory Laboratory Tests Test 09/08/17 20:20 09/09/17 07:37 CA 125 Antigen 11.6 White Blood Count 9.2 Red Blood Count 4.66 Hemoglobin 10.4 Hematocrit 32.6 Mean Corpuscular Volume 69.9 Mean Corpuscular Hemoglobin 22.2 Mean Corpuscular Hemoglobin Concent 31.8 Red Cell Distribution Width 15.9 Platelet Count 294 Mean Platelet Volume 7.9 Neutrophils (%) (Auto) 61.9 Lymphocytes (%) (Auto) 27.5 Monocytes (%) (Auto) 7.1 Eosinophils (%) (Auto) 2.9 Basophils (%) (Auto) 0.6 Neutrophils # (Auto) 5.7 Lymphocytes # (Auto) 2.5 Monocytes # (Auto) 0.6 Eosinophils # (Auto) 0.3 Basophils # (Auto) 0.1 CBC Comment DIFF FINAL Differential Comment Blood Urea Nitrogen 12 Creatinine 1.24 Random Glucose 102 Total Protein 6.6 Albumin 2.4 Calcium Level 8.7 Alkaline Phosphatase 238 Aspartate Amino Transf (AST/SGOT) 11 Alanine Aminotransferase (ALT/SGPT) 16 Total Bilirubin 0.3 Sodium Level 144 Potassium Level 3.6 Chloride Level 113 Carbon Dioxide Level 24.3 Anion Gap 7 Estimat Glomerular Filtration Rate 54 Date/Time Source Procedure Growth Status 09/08/17 07:53 Blood Peripheral Aerobic Blood Culture - Preliminary NO GROWTH IN 1 DAY Resulted 09/08/17 07:53 Blood Peripheral Anaerobic Blood Culture - Preliminary NO GROWTH IN 1 DAY Resulted 09/08/17 07:53 Urine Clean Catch Urine Culture Pending Received Result Diagram: 09/09/17 0737 09/09/1737 Caprini VTE Risk Assessment Caprini VTE Risk Assessment: No/Low Risk (score <= 1) Caprini Risk Assessment Model Point Value = 1 Point Value = 2 Point Value = 3 Point Value = 5 Age 41-60 Minor surgery BMI > 25 kg/m2 Swollen legs Varicose veins or History of unexplained or recurrent spontaneous Oral contraceptives or hormone replacement Sepsis (< 1 month) Serious lung disease, including pneumonia (< 1 month) Abnormal pulmonary function Acute myocardial infarction Congestive heart failure (< 1 month) History of inflammatory bowel disease Medical patient at bed rest Age 61-74 Arthroscopic surgery Major open surgery (> 45 min) Laparoscopic surgery (> 45 min) Malignancy Confined to bed (> 72 hours) Immobilizing plaster cast Central venous access Age >= 75 History of VTE Family history of VTE Factor V Leiden Prothrombin [id number] Lupus anticoagulant Anticardiolipin antibodies Elevated serum homocysteine Heparin-induced thrombocytopenia Other congenital or acquired thrombophilia Stroke (< 1 month) Elective arthroplasty Hip, pelvis, or leg fracture Acute spinal cord injury (< 1 month) Prophylaxis Regimen Total Risk Factor Score Risk Level Prophylaxis Regimen 0-1 Low Early ambulation 2 Moderate Order ONE of the following: *Sequential Compression Device (SCD) *Heparin 5000 units SQ BID 3-4 Higher Order ONE of the following medications: *Heparin 5000 units SQ TID *Enoxaparin/Lovenox 40 mg SQ daily (WT < 150 kg, CrCl > 30 mL/min) *Enoxaparin/Lovenox 30 mg SQ daily (WT < 150 kg, CrCl > 10-29 mL/min) *Enoxaparin/Lovenox 30 mg SQ BID (WT < 150 kg, CrCl > 30 mL/min) AND/OR *Sequential Compression Device (SCD) 5 or more Highest Order ONE of the following medications: *Heparin 5000 units SQ TID (Preferred with Epidurals) *Enoxaparin/Lovenox 40 mg SQ daily (WT < 150 kg, CrCl > 30 mL/min) *Enoxaparin/Lovenox 30 mg SQ daily (WT < 150 kg, CrCl > 10-29 mL/min) *Enoxaparin/Lovenox 30 mg SQ BID (WT < 150 kg, CrCl > 30 mL/min) AND *Sequential Compression Device (SCD) Assessment and Plan Assessment and Plan 57YO female w/PMHx DM type 2, HTN, and chronic constipation p/w abdominal pain x1 day with CT abdomen/pelvis showing significant stool burden likely contributing to bilateral hydroureter and urinary obstruction with possible left ureter leak, air in the bladder and gas-forming pyelonephritis. GI consulted for stool disimpaction. Urology consulted for urinary obstruction. Consider emphysematous pyelonephritis 2/2 chronic constipation. Problem List: (1) Fecal impaction ICD Codes: K56.41 - Fecal impaction Status: Acute Plan: CT scan showing fecal impaction contributing to urinary obstruction; pt has hx of chronic constipation since May -Disimpaction: -GI consulted--appreciate recs -Fleet enema prior to gastrograffin enema (as suggested by radiology) -Consider gastric emptying study following disimpaction suspect she will need colonoscopy. it is possible she started on amitriptyline and it is leading to constipation or she has something that will be seen on colonoscopy (2) Obstructive uropathy ICD Codes: N13.9 - Obstructive and reflux uropathy, unspecified Status: Acute Plan: CT abdomen/pelvis showing obstructive uropathy with bilateral hydroureter and possible left ureter vs lower pole left kidney leak; also air in bladder -Urology consulted--appreciate recs. they recommend no surgery or other acute treatment at this time. she has some sediment in her urine today probably from SANDY vs infection -UA showing large LE, small blood, neg nitrite with urine cx pending -Rocephin 1g IV given once in ED -Blood cx pending -WBC 12.3 (3) Hypertension ICD Codes: I10 - Essential (primary) hypertension Status: Acute Plan: Holding home dose lisinopril due to SANDY (Cr 2.53 on admit) as well as bilateral hydroureter (4) Acute kidney injury ICD Codes: N17.9 - Acute kidney failure, unspecified Status: Acute Plan: BUN 25 / Cr 2.63 on admit with BL Cr 0.71 on 03/20/17; after alcaraz placed last night pt had copious amount of urine out (2900ml); expect this will correct as obstruction is cleared. better today. will keep following (5) Diabetes mellitus ICD Codes: E11.9 - Type 2 diabetes mellitus without complications Status: Acute Plan: Pt on insulin 36 units hs and Metformin 1000mg PO daily; pt states she discontinued glipizide recently; last A1C 12.6 09/17/15, down from 15 a month ago. she reports just starting insulin a month ago -Hold home insulin and Metformin -Low SSI -Accuchecks -A1c pending (6) Anxiety and depression ICD Codes: F41.9 - Anxiety disorder, unspecified; F32.9 - Major depressive disorder, single episode, unspecified Plan: Continue home amitriptyline 50mg hs though it can contribute to constipation and urinary retention so will need to keep assessing (7) Microcytic anemia ICD Codes: D50.9 - Microcytic anemia Status: Acute Plan: Hgb 9.9 with MCV 69.8; pt indicates she took Iron in the past -Hold on FeSO4 due to constipation (8) FEN/GI/PPx Status: Acute Plan: Fluids: NS IVF @140ml/hr Electrolytes: wnl; will monitor daily and replete as necessary Nutrition: Diabetic diet GI: hold PPI for now; as per GI consult PPx: Heparin 5000 units subcu, hold if going for procedure Bowel regimen: as above fleet enema followed by gastrograffin enema. suspect she will need colonoscopy as her constipation is since May and very severe Problem Qualifiers (1) Hypertension: Qualified Codes: I10 - Essential (primary) hypertension (2) Diabetes mellitus: Amber Bhat MD Sep 09, 2017 11:35
[2017-09-09] MEDS: ACETAMINOPHEN/HYDROcodone 325 MG/7.5 MG TAB PO PRN ×2 (13:06→22:19)
[2017-09-09] MEDS: MORPHINE SULFATE 2 MG/ML INJ IV PUSH PRN (17:53)
[2017-09-09] MEDS ORDERED: DIATRIZOATE MEGLUM/DIATRIZOATE SOD 120 ML BTL (for RAD DIAG) RECTAL ONE (21:33)
[2017-09-09] MEDS: ZOLPIDEM TARTRATE 5 MG TAB PO PRN (22:18)
[2017-09-09] MEDS: AMITRIPTYLINE HCL 25 MG TAB PO SCH (22:19)
[2017-09-10] VITALS (10 sets, daily range): BP systolic 134–164; BP diastolic 66–87; PULSE 66–112; RESP 18–20; TEMP 98–98.8; O2SAT 96–100
[2017-09-10] MEDS: cloNIDine HCL 0.1 MG TAB PO PRN (00:07)
[2017-09-10] MEDS: SODIUM CHLOR 0.9% 1000 ML INJ 1,000 ML IV SCH ×2 (06:02→23:02)
[2017-09-10 06:37] LABS: BASOPHIL # 0.1 TH/MM3 (0-0.2); BASOPHIL % 0.9 % (0.0-2.0); EOSINOPHIL # 0.4 TH/MM3 (0-0.4); EOSINOPHIL % 4.2 % (0.0-4.0); HEMATOCRIT 30.9 % (35.0-46.0); HEMOGLOBIN 9.8 GM/DL (11.6-15.3); LYMPH % 33.1 % (9.0-44.0); MEAN CELL VOLUME 70.1 FL (80.0-100.0); MEAN CORPUSCULAR HEMOGLOBIN 22.3 PG (27.0-34.0); MEAN CORPUSCULAR HGB CONC 31.8 % (32.0-36.0); MEAN PLATELET VOLUME 8.1 FL (7.0-11.0); MONO % 7.1 % (0.0-8.0); MONOCYTE # 0.6 TH/MM3 (0-0.9); NEUT % 54.7 % (16.0-70.0); PLATELET COUNT 299 TH/MM3 (150-450); RED CELL DISTRIBUTION WIDTH 15.9 % (11.6-17.2); WHITE BLOOD COUNT 9.1 TH/MM3 (4.0-11.0)
[2017-09-10 07:30] LABS: BICARBONATE 27.4 MEQ/L (21.0-32.0); CALCIUM 8.1 MG/DL (8.5-10.1); CREATININE 1.06 MG/DL (0.50-1.00)
[2017-09-10] MEDS: DOCUSATE SODIUM 50 MG/SENNA 8.6 MG TAB PO SCH ×2 (08:40→20:50)
[2017-09-10] MEDS: INSULIN ASPART SUPPLEMENTAL SCALE SQ SCH ×4 (08:41→20:50)
[2017-09-10] MEDS: SODIUM CHLORIDE 0.9% FLUSH 10 ML FLUSH IV FLUSH SCH ×2 (08:41→20:50)
[2017-09-10] MEDS: ACETAMINOPHEN/HYDROcodone 325 MG/7.5 MG TAB PO PRN ×3 (08:42→20:50)
[2017-09-10] MEDS: cefTRIAXone INJ 1,000 MG in SODIUM CHLORIDE 0.9% INJ 100 ML IV SCH (09:39)
[2017-09-10] MEDS: HEPARIN SODIUM - SQ 10,000 UNITS/ML VIAL SQ SCH ×2 (10:25→20:50)
--- NOTE | 2017-09-10 11:16 | HHI.FPPN ---
Subjective Remarks Patient states she is doing well. Has been having 6 bowel movements since yesterday, notes significant improvement since gastrografin. Is feeling well, no other complaints. Yellow urine seen in the alcaraz. (Mely Pitts MD R1) Objective Vitals Vital Signs Date Time Temp Pulse Resp B/P (MAP) Pulse Ox O2 Delivery O2 Flow Rate FiO2 09/10/17 08:00 Room Air 09/10/17 08:00 101 09/10/17 04:00 98 09/10/17 04:00 98.8 112 20 155/75 (101) 97 09/10/17 00:00 109 09/09/17 23:59 96.8 110 20 178/83 (114) 98 09/09/17 22:20 Room Air 09/09/17 20:00 111 09/09/17 20:00 98.1 62 19 115/67 (83) 98 09/09/17 16:00 97.4 100 22 185/98 (127) 100 09/09/17 16:00 110 09/09/17 12:00 107 09/09/17 12:00 97.3 105 25 166/82 (110) 95 I/O 09/09/17 09/09/17 09/09/17 09/10/17 09/10/17 09/10/17 07:00 15:00 23:00 07:00 15:00 23:00 Intake Total 1850 ml 1720 ml 2700 ml Output Total 5250 ml 2000 ml 4750 ml 2350 ml Balance -3400 ml -280 ml -2050 ml -2350 ml Intake Oral 1850 ml 720 ml 1700 ml IV Total 1000 ml 1000 ml Output Urine Total 5250 ml 2000 ml 4750 ml 2350 ml # Bowel Movements 0 6 0 (Mely Pitts MD R1) Result Diagram: 09/10/17 0537 09/10/17 0537 Objective Remarks O. CONSTITUTIONAL/GEN: No acute distress, reclining comfortably in bed. Alcaraz in place draining yellow-clear urine. EYES: conjunctiva normal, PERRLA, EOMI. LUNGS: clear A-P, respiratory effort is normal. CARDIOVASCULAR: RR without murmur or gallop. No significant edema. GI/ABD: soft without masses, no pain. NEURO: No focal deficits. SKIN: color normal, no rashes noted. MUSC: back is normal in appearance. Extremities are normal in appearance. PSYCH/MENTAL STATUS: Alert and oriented x 3. (Mely Pitts MD R1) A/P Assessment and Plan 57YO female w/PMHx DM type 2, HTN, and chronic constipation p/w abdominal pain x1 day with CT abdomen/pelvis showing significant stool burden likely contributing to bilateral hydroureter and urinary obstruction with possible left ureter leak, air in the bladder and gas-forming pyelonephritis. GI consulted for stool disimpaction. Urology consulted for urinary obstruction. Consider emphysematous pyelonephritis 2/2 chronic constipation. (Mely Pitts MD R1) Attending Attestation Patient seen and examined. Case reviewed and discussed with the resident team. Agree with plan of care as discussed with me and documented in the resident note. appreciate help of GI (Amber Bhat MD) Problem List: (1) Fecal impaction ICD Codes: K56.41 - Fecal impaction Status: Resolved Plan: CT scan showing fecal impaction contributing to urinary obstruction; pt has hx of chronic constipation since May -GI consulted--appreciate recs - S/p gastrograffin enema on 09/09 - suspect she will need colonoscopy for recent onset of constipation without out external trigger source. Patient has been on amitriptyline for years (2) Acute kidney injury ICD Codes: N17.9 - Acute kidney failure, unspecified Status: Acute Plan: BUN 25 / Cr 2.63 on admit On 140 mls/hr of IVF Improved to Cr 1.06 today. BUN of 9 Will decrease IVF to 70 mls/hr (3) Obstructive uropathy ICD Codes: N13.9 - Obstructive and reflux uropathy, unspecified Status: Acute Plan: CT abdomen/pelvis showing obstructive uropathy with bilateral hydroureter and possible left ureter vs lower pole left kidney leak; also air in bladder -Urology consulted--appreciate recs. they recommend no surgery or other acute treatment - Day 2 on Rocephin - 2350 ml urine collected by this morning. Will discontinue alcaraz today because of increased BM and monitor further for improvement (4) Hypertension ICD Codes: I10 - Essential (primary) hypertension Status: Acute Plan: Holding home dose lisinopril due to SANDY (Cr 2.53 on admit) as well as bilateral hydroureter Will resume lisinopril tomorrow pending improved Cr closer to baseline (0.7 on ) (5) Diabetes mellitus ICD Codes: E11.9 - Type 2 diabetes mellitus without complications Status: Acute Plan: Pt on insulin 36 units hs and Metformin 1000mg PO daily; pt states she discontinued glipizide recently; last A1C 12.6 09/17/15, down from 15 a month ago. she reports just starting insulin a month ago -Hold home insulin and Metformin -Accuchecks 179-278 since yesterday afternoon, patient is NPO -A1c of 13 - Con't low SSI. Consider resuming home meds tomorrow (6) Anxiety and depression ICD Codes: F41.9 - Anxiety disorder, unspecified; F32.9 - Major depressive disorder, single episode, unspecified Plan: Continue home amitriptyline 50mg hs (7) Microcytic anemia ICD Codes: D50.9 - Microcytic anemia Status: Acute Plan: Hgb 9.8 with MCV <90; pt indicates she took Iron in the past -Hold on FeSO4 due to constipation (8) FEN/GI/PPx Status: Acute Plan: Fluids: NS IVF @70ml/hr Electrolytes: wnl; will monitor daily and replete as necessary Nutrition: Diabetic diet GI: hold PPI for now PPx: Heparin 5000 units subcu, hold if going for procedure Bowel regimen: s/p fleet enema followed by gastrograffin enema. suspect she will need colonoscopy as her constipation is since May and very severe (Mely Pitts MD R1) Problem Qualifiers (1) Hypertension: Qualified Codes: I10 - Essential (primary) hypertension (2) Diabetes mellitus: Mely Pitts MD R1 Sep 10, 2017 11:16 Amber Bhat MD Sep 14, 2017 13:49
--- NOTE | 2017-09-10 14:30 | HHI.GIFU ---
Subjective Remarks Resting in the bed talking on the phone to some of her family Continues with left-sided abdominal pain into the rectal area Still no solid BM, Gastrografin enema yesterday Mild tachycardia heart rate 103-108 Mild nausea but no vomiting (Ashlyn Rojo) Objective Vitals I&O Vital Signs Date Time Temp Pulse Resp B/P (MAP) Pulse Ox O2 Delivery O2 Flow Rate FiO2 09/10/17 11:55 103 09/10/17 08:12 98.6 108 19 164/87 (112) 98 09/10/17 08:00 Room Air 09/10/17 08:00 101 09/10/17 04:00 98 09/10/17 04:00 98.8 112 20 155/75 (101) 97 09/10/17 00:00 109 09/09/17 23:59 96.8 110 20 178/83 (114) 98 09/09/17 22:20 Room Air 09/09/17 20:00 111 09/09/17 20:00 98.1 62 19 115/67 (83) 98 09/09/17 16:00 97.4 100 22 185/98 (127) 100 09/09/17 16:00 110 I/O 09/09/17 09/09/17 09/09/17 09/10/17 09/10/17 09/10/17 07:00 15:00 23:00 07:00 15:00 23:00 Intake Total 1850 ml 1720 ml 2700 ml Output Total 5250 ml 2000 ml 4750 ml 2350 ml Balance -3400 ml -280 ml -2050 ml -2350 ml Intake Oral 1850 ml 720 ml 1700 ml IV Total 1000 ml 1000 ml Output Urine Total 5250 ml 2000 ml 4750 ml 2350 ml # Bowel Movements 0 6 0 Laboratory Laboratory Tests Test 09/10/17 05:37 White Blood Count 9.1 Red Blood Count 4.40 Hemoglobin 9.8 Hematocrit 30.9 Mean Corpuscular Volume 70.1 Mean Corpuscular Hemoglobin 22.3 Mean Corpuscular Hemoglobin Concent 31.8 Red Cell Distribution Width 15.9 Platelet Count 299 Mean Platelet Volume 8.1 Neutrophils (%) (Auto) 54.7 Lymphocytes (%) (Auto) 33.1 Monocytes (%) (Auto) 7.1 Eosinophils (%) (Auto) 4.2 Basophils (%) (Auto) 0.9 Neutrophils # (Auto) 5.0 Lymphocytes # (Auto) 3.0 Monocytes # (Auto) 0.6 Eosinophils # (Auto) 0.4 Basophils # (Auto) 0.1 CBC Comment DIFF FINAL Differential Comment Blood Urea Nitrogen 9 Creatinine 1.06 Random Glucose 207 Calcium Level 8.1 Sodium Level 144 Potassium Level 3.7 Chloride Level 111 Carbon Dioxide Level 27.4 Anion Gap 6 Estimat Glomerular Filtration Rate 65 Date/Time Source Procedure Growth Status 09/08/17 07:53 Blood Peripheral Aerobic Blood Culture - Preliminary NO GROWTH IN 2 DAYS Resulted 09/08/17 07:53 Blood Peripheral Anaerobic Blood Culture - Preliminary NO GROWTH IN 2 DAYS Resulted 09/08/17 07:53 Urine Clean Catch Urine Culture - Final 10-50,000 CFU/ML MIXED GRAM POSITIVE ... Complete Imaging Last Impressions Enema w/Water Soluble 09/09/17 0000 Signed Impressions: Service Date/Time: Saturday, September 09, 2017 08:47 - CONCLUSION: Significant amount retained stool identified in the rectosigmoid colon. Reji Porter MD Physical Exam HEENT: Pupils round and reactive to light; normocephalic; atraumatic; no jaundice. Obese NECK: Neck is supple, CHEST: Chest is clear without audible wheezing or rhonchi CARDIAC: Regular rhythm with mild tachycardia ABDOMEN: Round, taut, mild lower distention and bloating, tender left upper and left lower quadrant into the rectum no hepatosplenomegaly; bowel sounds are present EXTREMITIES: No clubbing, cyanosis, or edema. SKIN: Normal; no rash; no jaundice. 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 Now really constipated with her last BM occurring last week. Reports similar episode last yr, having to drink GoLytely with good results. She wears depends due to constant leakage of stools. She has been having difficultly urinating as well. She reports one episode of vomiting on . Never had colonoscopy before. CT abdomen/pelvis showing significant stool burden likely causing bilateral hydroureter and urinary obstruction with possible left ureter leak, air in the bladder and gas- forming pyelonephritis. Urology consulted. - Urinary obstruction with possible left ureter leak, air in the bladder and gas-forming pyelonephritis. Urology consulted. - Leukocytosis- Hx of recent UTI, urine and blood cx pending, on abx - Anemia- Denies hematemesis, or hematochezia or hematuria. Could be anemia of chronic dz, DM, CKD - Hx DM type 2, HTN, depression/anxiety Per attending - 09/09/17,Gastro grafin enema diagnostic and therapeutic, Brown fluid, but no solid stool yet. Hemoglobin 9.8, alkaline phosphatase 238, AST 11. - LUQ and LLQ pain continues today, mild dizziness without syncope today when getting up out of bed. This is the first time she noted this symptom since this hospital stay. - Gastrograffin Enema done on 09/09/17. Significant amount of retained stool identified in the rectal sigmoid colon. Plan: - Soap maxwell enema today, If no relief - Consider sigmoidoscopy for breakup of fecal impaction in am, if no solid stool today after enema - Manual check for impaction and remove digital if possible. - Consider Colonoscopy at some point - Lactulose daily - Bowel regimen daily, Discussed with patient increase water intake. - Supportive care - Patient seen and examined by Dr. Sanchez and myself and this note is written on his behalf. (Ashlyn Rojo) Physician Comments As above, will need Golyely if enemas not working well. Will follow up with you. (Vahid Sanchez MD) Ashlyn Rojo Sep 10, 2017 14:30 Vahid Sanchez MD Sep 10, 2017 15:01
[2017-09-10] MEDS: MORPHINE SULFATE 2 MG/ML INJ IV PUSH PRN ×2 (17:03→23:03)
[2017-09-10] MEDS: AMITRIPTYLINE HCL 25 MG TAB PO SCH (20:50)
[2017-09-11] VITALS (10 sets, daily range): BP systolic 158–219; BP diastolic 88–124; PULSE 98–111; RESP 17–20; TEMP 97.1–98.5; O2SAT 93–97
[2017-09-11] MEDS: ACETAMINOPHEN/HYDROcodone 325 MG/7.5 MG TAB PO PRN (06:53)
[2017-09-11] MEDS: INSULIN ASPART SUPPLEMENTAL SCALE SQ SCH ×4 (08:00→21:00)
[2017-09-11] MEDS: SODIUM CHLORIDE 0.9% FLUSH 10 ML FLUSH IV FLUSH SCH ×2 (09:00→22:53)
[2017-09-11 09:26] LABS: HEMATOCRIT 31.1 % (35.0-46.0)
[2017-09-11 09:53] LABS: BICARBONATE 23.7 MEQ/L (21.0-32.0); CALCIUM 8.8 MG/DL (8.5-10.1); CREATININE 1.84 MG/DL (0.50-1.00)
[2017-09-11] MEDS: HEPARIN SODIUM - SQ 10,000 UNITS/ML VIAL SQ SCH ×2 (09:53→22:00)
[2017-09-11] MEDS: DOCUSATE SODIUM 50 MG/SENNA 8.6 MG TAB PO SCH ×2 (09:54→21:00)
[2017-09-11] MEDS: cefTRIAXone INJ 1,000 MG in SODIUM CHLORIDE 0.9% INJ 100 ML IV SCH (09:54)
--- NOTE | 2017-09-11 11:28 | HHI.FPPN ---
Subjective Remarks Patient states she has been having lower abdominal pain and number of bowel movements have decreased to 3 runny stools. Feels like she has a hard mass in her stomach. No other complaints. Blood pressures have been elevated overnight 168/102-177/94. Objective Vitals Vital Signs Date Time Temp Pulse Resp B/P (MAP) Pulse Ox O2 Delivery O2 Flow Rate FiO2 09/11/17 10:55 96 Room Air 09/11/17 09:52 18 09/11/17 08:00 98.4 100 17 168/102 (124) 96 09/11/17 04:09 103 09/11/17 04:00 97.8 100 19 177/94 (121) 93 09/11/17 00:14 100 09/11/17 00:00 97.8 104 20 158/88 (111) 96 09/10/17 22:30 Room Air 09/10/17 20:00 98.5 108 18 162/77 (105) 100 09/10/17 19:52 107 09/10/17 16:12 98.0 66 18 134/66 (88) 96 09/10/17 16:00 107 09/10/17 12:12 98.1 68 18 134/66 (88) 96 09/10/17 11:55 103 I/O 09/10/17 09/10/17 09/10/17 09/11/17 09/11/17 09/11/17 06:59 14:59 22:59 06:59 14:59 22:59 Intake Total 2700 ml 1320 ml 0 ml 100 ml Output Total 4750 ml 2350 ml 450 ml Balance -2050 ml -2350 ml 1320 ml -450 ml 100 ml Intake Oral 1700 ml 320 ml 0 ml IV Total 1000 ml 1000 ml 100 ml Output Urine Total 4750 ml 2350 ml 450 ml # Voids 6 # Bowel Movements 0 2 1 Result Diagram: 09/11/17 0830 09/11/17 0830 Objective Remarks O. CONSTITUTIONAL/GEN: No acute distress, reclining comfortably in bed. Alcaraz in place draining yellow-clear urine. EYES: conjunctiva normal, PERRLA, EOMI. LUNGS: clear A-P, respiratory effort is normal. CARDIOVASCULAR: RR without murmur or gallop. No significant edema. GI/ABD: soft without masses, no pain. NEURO: No focal deficits. SKIN: color normal, no rashes noted. MUSC: back is normal in appearance. Extremities are normal in appearance. PSYCH/MENTAL STATUS: Alert and oriented x 3. A/P Assessment and Plan 57YO female w/PMHx DM type 2, HTN, and chronic constipation p/w abdominal pain x1 day with CT abdomen/pelvis showing significant stool burden likely contributing to bilateral hydroureter and urinary obstruction with possible left ureter leak, air in the bladder and gas-forming pyelonephritis. GI consulted for stool disimpaction. Urology consulted for urinary obstruction. Consider emphysematous pyelonephritis 2/2 chronic constipation. Problem List: (1) Fecal impaction ICD Codes: K56.41 - Fecal impaction Status: Acute Plan: CT scan showing fecal impaction contributing to urinary obstruction; pt has hx of chronic constipation since May -GI consulted--appreciate recs - S/p gastrograffin enema on 09/09 - suspect she will need colonoscopy for recent onset of constipation without out external trigger source. Patient has been on amitriptyline for years (2) Acute kidney injury ICD Codes: N17.9 - Acute kidney failure, unspecified Status: Acute Plan: BUN 25 / Cr 2.63 on admit On 140 mls/hr of IVF Improved to Cr 1.06 today. BUN of 9 Will decrease IVF to 70 mls/hr (3) Obstructive uropathy ICD Codes: N13.9 - Obstructive and reflux uropathy, unspecified Status: Acute Plan: CT abdomen/pelvis showing obstructive uropathy with bilateral hydroureter and possible left ureter vs lower pole left kidney leak; also air in bladder -Urology consulted--appreciate recs. they recommend no surgery or other acute treatment - Day 2 on Rocephin - 2350 ml urine collected by this morning. Will discontinue alcaraz today because of increased BM and monitor further for improvement (4) Hypertension ICD Codes: I10 - Essential (primary) hypertension Status: Acute Plan: Holding home dose lisinopril due to SANDY (Cr 2.53 on admit) as well as bilateral hydroureter Will resume lisinopril tomorrow pending improved Cr closer to baseline (0.7 on ) (5) Diabetes mellitus ICD Codes: E11.9 - Type 2 diabetes mellitus without complications Status: Acute Plan: Pt on insulin 36 units hs and Metformin 1000mg PO daily; pt states she discontinued glipizide recently; last A1C 12.6 09/17/15, down from 15 a month ago. she reports just starting insulin a month ago -Hold home insulin and Metformin -Accuchecks 179-278 since yesterday afternoon, patient is NPO -A1c of 13 - Con't low SSI. Consider resuming home meds tomorrow (6) Anxiety and depression ICD Codes: F41.9 - Anxiety disorder, unspecified; F32.9 - Major depressive disorder, single episode, unspecified Plan: Continue home amitriptyline 50mg hs (7) Microcytic anemia ICD Codes: D50.9 - Microcytic anemia Status: Acute Plan: Hgb 9.8 with MCV <90; pt indicates she took Iron in the past -Hold on FeSO4 due to constipation (8) FEN/GI/PPx Status: Acute Plan: Fluids: NS IVF @70ml/hr Electrolytes: wnl; will monitor daily and replete as necessary Nutrition: Diabetic diet GI: hold PPI for now PPx: Heparin 5000 units subcu, hold if going for procedure Bowel regimen: s/p fleet enema followed by gastrograffin enema. suspect she will need colonoscopy as her constipation is since May and very severe Problem Qualifiers (1) Hypertension: Qualified Codes: I10 - Essential (primary) hypertension (2) Diabetes mellitus: Meyl Pitts MD R1 Sep 11, 2017 11:28
--- NOTE | 2017-09-11 13:11 | HHI.FPPN ---
Subjective Remarks Ms Nathan states she has been having lower abdominal pain and number of bowel movements have decreased to 3 runny stools. Feels like she has a hard mass in her stomach. No other complaints. Blood pressures have been elevated overnight 168/102-177/94. Objective Vitals Vital Signs Date Time Temp Pulse Resp B/P (MAP) Pulse Ox O2 Delivery O2 Flow Rate FiO2 09/11/17 12:00 98.4 100 17 177/100 (125) 96 09/11/17 10:55 96 Room Air 09/11/17 09:52 18 09/11/17 08:00 98.4 100 17 168/102 (124) 96 09/11/17 04:09 103 09/11/17 04:00 97.8 100 19 177/94 (121) 93 09/11/17 00:14 100 09/11/17 00:00 97.8 104 20 158/88 (111) 96 09/10/17 22:30 Room Air 09/10/17 20:00 98.5 108 18 162/77 (105) 100 09/10/17 19:52 107 09/10/17 16:12 98.0 66 18 134/66 (88) 96 09/10/17 16:00 107 I/O 09/10/17 09/10/17 09/10/17 09/11/17 09/11/17 09/11/17 07:00 15:00 23:00 07:00 15:00 23:00 Intake Total 2700 ml 1320 ml 0 ml 100 ml Output Total 4750 ml 2350 ml 450 ml Balance -2050 ml -2350 ml 1320 ml -450 ml 100 ml Intake Oral 1700 ml 320 ml 0 ml IV Total 1000 ml 1000 ml 100 ml Output Urine Total 4750 ml 2350 ml 450 ml # Voids 6 # Bowel Movements 0 2 1 Result Diagram: 09/11/1730 09/11/1730 Objective Remarks O. CONSTITUTIONAL/GEN: No acute distress, reclining comfortably in bed except for some crampy lower abdominal pain EYES: conjunctiva normal, PERRLA, EOMI. LUNGS: clear A-P, respiratory effort is normal. CARDIOVASCULAR: RR without murmur or gallop. No significant edema. GI/ABD: soft without masses, no pain. NEURO: No focal deficits. SKIN: color normal, no rashes noted. MUSC: back is normal in appearance. Extremities are normal in appearance. PSYCH/MENTAL STATUS: Alert and oriented x 3. A/P Assessment and Plan 57YO female w/PMHx DM type 2, HTN, and chronic constipation p/w abdominal pain x1 day with CT abdomen/pelvis showing significant stool burden likely contributing to bilateral hydroureter and urinary obstruction with possible left ureter leak, air in the bladder and gas-forming pyelonephritis. GI consulted for stool disimpaction. Urology consulted for urinary obstruction. Consider emphysematous pyelonephritis 2/2 chronic constipation. Problem List: (1) Fecal impaction ICD Codes: K56.41 - Fecal impaction Status: Acute Plan: CT scan showing fecal impaction contributing to urinary obstruction; pt has hx of chronic constipation since May -GI consulted--appreciate recs - S/p gastrograffin enema on 09/09 further efforts will be made by GI today as she still has stool in her sigmoid and cannot have colonoscopy or other reliable testing at this point - suspect she will need colonoscopy for recent onset of constipation without out external trigger source. Patient has been on amitriptyline for years unsure if that could be contributing (2) Acute kidney injury ICD Codes: N17.9 - Acute kidney failure, unspecified Status: Acute Plan: BUN 25 / Cr 2.63 on admit On 140 mls/hr of IVF Improved to Cr 1.06 . BUN of 9 IVF to 70 mls/hr yesterday she was unexpectedly made NPO and continued to have diarrhea so she lost some fluids overall. her renal fxn is slightly worse so will increase her fluids after a bolus. she wants to take po fluids but will keep the iv going until she is able to take po. (3) Obstructive uropathy ICD Codes: N13.9 - Obstructive and reflux uropathy, unspecified Status: Acute Plan: CT abdomen/pelvis showing obstructive uropathy with bilateral hydroureter and possible left ureter vs lower pole left kidney leak; also air in bladder -Urology consulted--appreciate recs. they recommend no surgery or other acute treatment - Day 3 on Rocephin - . Will discontinue alcaraz today because of increased BM and monitor further for improvement (4) Hypertension ICD Codes: I10 - Essential (primary) hypertension Status: Acute Plan: Holding home dose lisinopril due to SANDY (Cr 2.53 on admit) as well as bilateral hydroureter Will resume lisinopril tomorrow pending improved Cr closer to baseline (0.7 on ) (5) Diabetes mellitus ICD Codes: E11.9 - Type 2 diabetes mellitus without complications Status: Acute Plan: Pt on insulin 36 units hs and Metformin 1000mg PO daily; pt states she discontinued glipizide recently; last A1C 12.6 09/17/15, down from 15 a month ago. she reports just starting insulin a month ago -Hold home insulin and Metformin -Accuchecks 179-278 since yesterday afternoon, patient is NPO -A1c of 13 - Con't low SSI. Consider resuming home meds tomorrow or later as she will probably be NPO again for colonoscopy (6) Anxiety and depression ICD Codes: F41.9 - Anxiety disorder, unspecified; F32.9 - Major depressive disorder, single episode, unspecified Plan: Continue home amitriptyline 50mg hs hesitate to stop this med but this can contribute to constipation. she reports taking this since 2012 or so but no constipation until 2017 so this med cannot be the whole problem. this can be tapered if it needs to be stopped (7) Microcytic anemia ICD Codes: D50.9 - Microcytic anemia Status: Acute Plan: Hgb 9.8 with MCV <90; pt indicates she took Iron in the past -Hold on FeSO4 due to constipation (8) FEN/GI/PPx Status: Acute Plan: Fluids: NS IVF @70ml/hr Electrolytes: wnl; will monitor daily and replete as necessary Nutrition: Diabetic diet GI: hold PPI for now PPx: Heparin 5000 units subcu, hold if going for procedure Bowel regimen: s/p fleet enema followed by gastrograffin enema. suspect she will need colonoscopy as her constipation is since May and very severe Problem Qualifiers (1) Hypertension: Qualified Codes: I10 - Essential (primary) hypertension (2) Diabetes mellitus: Amber Bhat MD Sep 11, 2017 13:11
--- NOTE | 2017-09-11 14:12 | HHI.GIFU ---
Subjective Remarks Pt had enema done last night Reports a few watery BMs Continued lower abdominal pain Currently NPO (Bella Eden) Objective Vitals I&O Vital Signs Date Time Temp Pulse Resp B/P (MAP) Pulse Ox O2 Delivery O2 Flow Rate FiO2 09/11/17 12:00 98.4 100 17 177/100 (125) 96 09/11/17 10:55 96 Room Air 09/11/17 09:52 18 09/11/17 08:00 98.4 100 17 168/102 (124) 96 09/11/17 04:09 103 09/11/17 04:00 97.8 100 19 177/94 (121) 93 09/11/17 00:14 100 09/11/17 00:00 97.8 104 20 158/88 (111) 96 09/10/17 22:30 Room Air 09/10/17 20:00 98.5 108 18 162/77 (105) 100 09/10/17 19:52 107 09/10/17 16:12 98.0 66 18 134/66 (88) 96 09/10/17 16:00 107 I/O 09/10/17 09/10/17 09/10/17 09/11/17 09/11/17 09/11/17 07:00 15:00 23:00 07:00 15:00 23:00 Intake Total 2700 ml 1320 ml 0 ml 100 ml Output Total 4750 ml 2350 ml 450 ml Balance -2050 ml -2350 ml 1320 ml -450 ml 100 ml Intake Oral 1700 ml 320 ml 0 ml IV Total 1000 ml 1000 ml 100 ml Output Urine Total 4750 ml 2350 ml 450 ml # Voids 6 # Bowel Movements 0 2 1 Laboratory Laboratory Tests Test 09/11/17 08:30 Hemoglobin 10.0 Hematocrit 31.1 Blood Urea Nitrogen 13 Creatinine 1.84 Random Glucose 118 Calcium Level 8.8 Sodium Level 142 Potassium Level 3.8 Chloride Level 109 Carbon Dioxide Level 23.7 Anion Gap 9 Estimat Glomerular Filtration Rate 34 Date/Time Source Procedure Growth Status 09/08/17 07:53 Blood Peripheral Aerobic Blood Culture - Preliminary NO GROWTH IN 3 DAYS Resulted 09/08/17 07:53 Blood Peripheral Anaerobic Blood Culture - Preliminary NO GROWTH IN 3 DAYS Resulted 09/08/17 07:53 Urine Clean Catch Urine Culture - Final 10-50,000 CFU/ML MIXED GRAM POSITIVE ... Complete Imaging Last Impressions Enema w/Water Soluble 09/09/17 0000 Signed Impressions: Service Date/Time: Saturday, September 09, 2017 08:47 - CONCLUSION: Significant amount retained stool identified in the rectosigmoid colon. Reji Porter MD Physical Exam HEENT: Normocephalic; atraumatic CHEST: Even/unlabored CARDIAC: RRR ABDOMEN: Obese, soft, lower abdominal tenderness, bowel sounds active EXTREMITIES: No clubbing, cyanosis, or edema. SKIN: Normal; no rash; no jaundice. SENIOR ADMINISTRATIVE ASSOCIATE: Alert and oriented x 3 (Bella Eden LAW TUTOR) Assessment and Plan Plan - Fecal impaction- Last BM a week ago, Reports she has had chronic constipation for years, and she has been taking stool softeners, miralax and MOM as needed. Now really constipated with her last BM occurring last week. Reports similar episode last yr, having to drink GoLytely with good results. She wears depends due to constant leakage of stools. She has been having difficultly urinating as well. She reports one episode of vomiting on . Never had colonoscopy before. CT abdomen/pelvis showing significant stool burden likely causing bilateral hydroureter and urinary obstruction with possible left ureter leak, air in the bladder and gas- forming pyelonephritis. Urology consulted. - Urinary obstruction with possible left ureter leak, air in the bladder and gas-forming pyelonephritis. Urology consulted. - Leukocytosis- Hx of recent UTI, urine and blood cx pending, on abx - Anemia- Denies hematemesis, or hematochezia or hematuria. Could be anemia of chronic dz, DM, CKD - Hx DM type 2, HTN, depression/anxiety Per attending - 09/09/17,Gastro grafin enema diagnostic and therapeutic, Brown fluid, but no solid stool yet. Hemoglobin 9.8, alkaline phosphatase 238, AST 11. - LUQ and LLQ pain continues today, mild dizziness without syncope today when getting up out of bed. This is the first time she noted this symptom since this hospital stay. - Gastrograffin Enema done on 09/09/17. Significant amount of retained stool identified in the rectal sigmoid colon. (09/11) --> Pt had soap suds enema last night, states has had watery BMs since then but does not feel that much stool has come out. Continued lower abdominal pain. Pt currently NPO, however, she is not scheduled for sigmoidoscopy today. Will try medical management prior to procedures. Added GoLytely with repeat KUB in AM. Pt can also be placed on clear liquids. If no improvement with GoLytely an endoscopic procedure could be considered for tomorrow. Plan: - GoLytely today - Repeat KUB in AM - Monitor stool count - Clear liquid diet - Endoscopic procedure only if failed medical management - Further recommendations based on clinical course Patient has been seen and examined by myself and Dr. Sanchez and this note is written on his behalf (Bella Eden) Physician Comments Agree with above, clinically disimpacted, further recommendations to follow. (Vahid Sanchez MD) Bella Eden Sep 11, 2017 14:12 Vahid Sanchez MD Sep 11, 2017 14:49
[2017-09-11] MEDS ORDERED: PEG (High)/E-LYTE SOLN 4000 ML BTL PO ONE (14:15)
[2017-09-11] MEDS ORDERED: SODIUM CHLOR 0.9% 1000 ML INJ 1,000 ML IV ONE (14:45)
[2017-09-11] MEDS: SODIUM CHLOR 0.9% 1000 ML INJ 1,000 ML IV SCH (15:38)
[2017-09-11] MEDS: cloNIDine HCL 0.1 MG TAB PO PRN ×2 (16:02→23:04)
--- NOTE | 2017-09-11 19:09 | EKG ---
Date Performed: 09/11/2017 Time Performed: 09:29:33 PTAGE: 57 years EKG: SINUS TACHYCARDIA POSSIBLE LEFT ATRIAL ENLARGEMENT ABNORMAL RHYTHM ECG PREVIOUS TRACING : 09/05/2016 01.20 Since the previous tracing, no significant change noted DOCTOR: Mane Traore Interpretating Date/Time 09/11/2017 19:08:06
[2017-09-11 19:38] LABS: BICARBONATE 25.4 MEQ/L (21.0-32.0); CALCIUM 8.6 MG/DL (8.5-10.1); CREATININE 2.13 MG/DL (0.50-1.00)
[2017-09-11] MEDS: AMITRIPTYLINE HCL 25 MG TAB PO SCH (22:53)
[2017-09-12] VITALS (11 sets, daily range): BP systolic 139–209; BP diastolic 71–112; PULSE 93–109; RESP 18–21; TEMP 97.8–98.4; O2SAT 94–100
[2017-09-12] MEDS: ACETAMINOPHEN/HYDROcodone 325 MG/7.5 MG TAB PO PRN ×2 (01:14→21:16)
[2017-09-12] MEDS: SODIUM CHLOR 0.9% 1000 ML INJ 1,000 ML IV SCH ×2 (06:06→10:58)
[2017-09-12] MEDS: MORPHINE SULFATE 2 MG/ML INJ IV PUSH PRN (06:24)
[2017-09-12] MEDS ORDERED: SODIUM CHLOR 0.9% 1000 ML INJ 1,000 ML IV ONE (07:15)
--- NOTE | 2017-09-12 07:31 | RADRPT ---
EXAM DATE/TIME: 09/12/2017 06:12 [facility] COMPARISON: GASTROGRAFIN ENEMA, September 09, 2017, 8:47. INDICATIONS : Fecal impaction. MEDICAL HISTORY : Diabetes mellitus type II. Hypertension SURGICAL HISTORY : None. ENCOUNTER: Subsequent ACUITY: 4 - 6 days PAIN SCORE: 2/10 LOCATION: Bilateral lower quadrant abdomen FINDINGS: Stool previously identified in the distal colon is no longer visualized. Air-filled proximal colon is noted. There is no evidence of pathologic distention or mass effect. CONCLUSION: 1. Interval evacuation of distal colonic stool in this patient with a history of impaction. 2. No evidence of ileus or contraction. Reji Porter MD on September 12, 2017 at 7:28 Board Certified Radiologist. This report was verified electronically.
[2017-09-12] MEDS: INSULIN ASPART SUPPLEMENTAL SCALE SQ SCH ×4 (08:37→21:13)
[2017-09-12] MEDS: DOCUSATE SODIUM 50 MG/SENNA 8.6 MG TAB PO SCH ×2 (08:37→21:11)
[2017-09-12] MEDS: HEPARIN SODIUM - SQ 10,000 UNITS/ML VIAL SQ SCH ×2 (08:37→21:13)
[2017-09-12] MEDS ORDERED: HYDROCHLOROTHIAZIDE 12.5 MG CAP PO SCH (09:00)
[2017-09-12] MEDS: SODIUM CHLORIDE 0.9% FLUSH 10 ML FLUSH IV FLUSH SCH ×2 (09:00→21:00)
--- NOTE | 2017-09-12 09:26 | HHI.FPPN ---
Subjective Remarks Blood pressures have been ranging from 156/71-203/98. Denies headaches, chest pain, no new symptoms. Patient endorses increased lower abdominal pain and lower back pain. Had one large bowel movement last night. Wanted to know why she is on a clear liquid diet, is concerned and would like to be on a more solid diet. Was explained to her that she requires increased fluids because of worsening in kidney function. Urine output of 3 L today, 1.8 L yesterday. Creatinine increased to 2.13 yesterday afternoon. At 2.06 this morning. Creatinine on admission started at 2.63 but decreased down to 1.06 after 2 days. Patient has been ambulating without problems. (Mely Pitts MD R1) Objective Vitals Vital Signs Date Time Temp Pulse Resp B/P (MAP) Pulse Ox O2 Delivery O2 Flow Rate FiO2 09/12/17 04:00 98.4 93 19 156/71 (99) 94 09/12/17 03:59 98 09/12/17 00:00 105 09/12/17 00:00 97.8 100 18 139/79 (99) 96 09/11/17 20:30 Room Air 09/11/17 20:00 98.5 107 18 195/98 (130) 96 09/11/17 19:51 107 09/11/17 16:01 203/124 (150) 09/11/17 16:00 97.1 111 20 219/115 (149) 97 09/11/17 16:00 110 09/11/17 12:00 103 09/11/17 12:00 98.4 100 17 177/100 (125) 96 09/11/17 10:55 96 Room Air 09/11/17 09:52 18 I/O 09/11/17 09/11/17 09/11/17 09/12/17 09/12/17 09/12/17 07:00 15:00 23:00 07:00 15:00 23:00 Intake Total 0 ml 100 ml 1000 ml 240 ml Output Total 450 ml Balance -450 ml 100 ml 1000 ml 240 ml Intake Oral 0 ml 240 ml IV Total 100 ml 1000 ml Output Urine Total 450 ml # Voids 3 4 # Bowel Movements 1 5 (Mely Pitts MD R1) Result Diagram: 09/11/17 0830 09/11/17 1847 Objective Remarks O. CONSTITUTIONAL/GEN: No acute distress, reclining comfortably in bed except for some crampy lower abdominal pain EYES: conjunctiva normal, PERRLA, EOMI. LUNGS: clear A-P, respiratory effort is normal. CARDIOVASCULAR: RR without murmur or gallop. No significant edema. GI/ABD: soft without masses, no pain. NEURO: No focal deficits. SKIN: color normal, no rashes noted. MUSC: Extremities are normal in appearance. PSYCH/MENTAL STATUS: Alert and oriented x 3. (Mely Pitts MD R1) A/P Assessment and Plan 57YO female w/PMHx DM type 2, HTN, and chronic constipation p/w abdominal pain x1 day with CT abdomen/pelvis showing significant stool burden likely contributing to bilateral hydroureter and urinary obstruction with possible left ureter leak, air in the bladder and gas-forming pyelonephritis. GI consulted for stool disimpaction. Urology consulted for urinary obstruction. Patient received gastric graft and administration 1, mineral oil enema 1, fleets enema 1, and several soapsuds enemas. Has received GoLYTELY 2. So far, patient has had multiple bowel movements. SANDY improved initially since admission but then worsened on 09/11. She was given 1L NS bolus x2. States that she had 1 large bowel movement and afterwards has begun to experience some lower abdominal and lower back pain. Abdominal exam shows evacuation of distal colonic stool. Renal ultrasound was ordered and showed bilateral hydronephrosis with distended urinary bladder. Bladder obstruction/retention was suspected, urine catheterization was performed. A total of 3 L of urine were drained in 1 hour. Patient to undergo colonoscopy on 09/12/2017 to identify possible source of obstruction. We'll plan for patient to follow-up with urology outpatient. If patient experiences improvement in kidney function during this hospitalization, would like to perform CT of the abdomen with contrast. (Mely Pitts MD R1) Attending Attestation Patient seen and examined. Case reviewed and discussed with the resident team. Agree with plan of care as discussed with me and documented in the resident note. she has had a severe and prolonged inability to evacuate her colon so it has been a long difficult process (Amber Bhat MD) Problem List: (1) Acute kidney injury ICD Codes: N17.9 - Acute kidney failure, unspecified Status: Acute Plan: BUN 25 / Cr 2.63 on admit On 140 mls/hr of IVF due to worsening Cr yesterday Urine output of 3 L today, 1.8 L yesterday. Creatinine increased to 2.13 yesterday afternoon. At 2.06 this morning. Creatinine on admission started at 2.63 but decreased down to 1.06 after 2 days. NS bolus x2 She is on clear liquid diet Sheikh in place see above for plan (2) Fecal impaction ICD Codes: K56.41 - Fecal impaction Status: Resolved Plan: CT scan showing fecal impaction contributing to urinary obstruction; pt has hx of chronic constipation since May X-ray today shows evacuation of colonic stool (3) Obstructive uropathy ICD Codes: N13.9 - Obstructive and reflux uropathy, unspecified Status: Acute Plan: Impacted stool on admission CT abdomen/pelvis showing obstructive uropathy with bilateral hydroureter and possible left ureter vs lower pole left kidney leak; also air in bladder Development of bladder distention and urinary retention, presumably since yesterday evening Sheikh catheter in place, draining 1-2 L of urine - Continue Sheikh catheter placement over the next several days -GI consulted--appreciate recs - S/p gastrograffin enema on 09/09 to facilitate evacuation - We'll discuss use of amitriptyline with patient tomorrow (as it can contribute ), consider tapering - Colonoscopy tomorrow -Urology consulted--appreciate recs. they recommend no surgery or other acute treatment. We'll set up follow up with patient outpatient (4) Hypertension ICD Codes: I10 - Essential (primary) hypertension Status: Acute Plan: Holding home dose lisinopril due to SANDY (Cr 2.53 on admit) as well as bilateral hydroureter Will resume lisinopril pending improved Cr closer to baseline (0.7 on 03/20/17) Blood pressures have been elevated overnight Initiated hydrochlorothiazide 25 mg daily today, hydralazine 10 mg IV every 6 hours when necessary, clonidine 0.1 mg by mouth every 6 when necessary to obtain better blood pressure control (5) Diabetes mellitus ICD Codes: E11.9 - Type 2 diabetes mellitus without complications Status: Acute Plan: Pt on insulin 36 units hs and Metformin 1000mg PO daily; pt states she discontinued glipizide recently; last A1C 12.6 09/17/15, down from 15 a month ago. she reports just starting insulin a month ago Hold in home insulin and Metformin -Fasting blood sugar w/in target range (140-180) - Con't low SSI (6) Anxiety and depression ICD Codes: F41.9 - Anxiety disorder, unspecified; F32.9 - Major depressive disorder, single episode, unspecified Plan: Takes home amitriptyline 50mg hs Reduced amitriptyline to 25 mg at bedtime (7) Microcytic anemia ICD Codes: D50.9 - Microcytic anemia Status: Acute Plan: microcytic, pt indicates she took Iron in the past -Hold on FeSO4 due to constipation (8) FEN/GI/PPx Status: Acute Plan: Fluids: NS IVF @140ml/hr Electrolytes: wnl; will monitor daily and replete as necessary Nutrition: Diabetic diet GI: hold PPI for now PPx: Heparin 5000 units subcu, hold if going for procedure (Mely Pitts MD R1) Problem Qualifiers (1) Hypertension: Qualified Codes: I10 - Essential (primary) hypertension (2) Diabetes mellitus: Mely Pitts MD R1 Sep 12, 2017 09:26 Amber Bhat MD Sep 14, 2017 13:52
[2017-09-12 11:24] LABS: BICARBONATE 21.6 MEQ/L (21.0-32.0); CALCIUM 8.2 MG/DL (8.5-10.1); CREATININE 2.06 MG/DL (0.50-1.00)
[2017-09-12] MEDS ORDERED: HYDROCHLOROTHIAZIDE 12.5 MG CAP PO ONE (12:00)
--- NOTE | 2017-09-12 12:43 | RADRPT ---
EXAM DATE/TIME: 09/12/2017 10:24 [facility] COMPARISON: No previous studies available for comparison. INDICATIONS : Increased BUN/Creatinine. MEDICAL HISTORY : Hypertension. Ulcer. Diabetes. SURGICAL HISTORY : Right ankel surgery. Left knee surgery. ENCOUNTER: Initial ACUITY: 1 day PAIN SCORE: 10/10 LOCATION: Bilateral flank MEASUREMENTS: RIGHT KIDNEY: 14.3 6.4 x 7.0 cm LEFT KIDNEY: 13.5 x 8.8 x 8.7 cm FINDINGS: RIGHT KIDNEY: Moderate severity hydronephrosis and dilation of the visualized proximal ureter. Renal cortical thick ness is maintained. LEFT KIDNEY: There is mild severity hydronephrosis. BLADDER: Urinary bladder is distended. Pre-and post void imaging was performed and prevoid volume is estimated at 1300 cc and post void volume is estimated at 1340 cc. CONCLUSION: 1. Bilateral hydronephrosis, right greater than left. 2. Distended urinary bladder with no significant emptying post void. David Lopez MD on September 12, 2017 at 12:39 Board Certified Radiologist. This report was verified electronically.
--- NOTE | 2017-09-12 13:40 | HHI.GIFU ---
Subjective Remarks Pt reports multiple BMs since yesterday Overall feeling better Still with lower abdominal pain, bilateral, worse with palpation Was having inadequate urinary output with bladder scan showing retention- Sheikh catheter placed with 2000 mL of output Some nausea, denies emesis States has not been having much of clear liquid diet (Bella Eden) Objective Vitals I&O Vital Signs Date Time Temp Pulse Resp B/P (MAP) Pulse Ox O2 Delivery O2 Flow Rate FiO2 09/12/17 13:09 193/91 (125) 09/12/17 12:16 203/98 (133) 09/12/17 11:15 209/93 (131) 09/12/17 10:53 94 Room Air 09/12/17 08:00 102 09/12/17 04:00 98.4 93 19 156/71 (99) 94 09/12/17 03:59 98 09/12/17 00:00 105 09/12/17 00:00 97.8 100 18 139/79 (99) 96 09/11/17 20:30 Room Air 09/11/17 20:00 98.5 107 18 195/98 (130) 96 09/11/17 19:51 107 09/11/17 16:01 203/124 (150) 09/11/17 16:00 97.1 111 20 219/115 (149) 97 09/11/17 16:00 110 I/O 09/11/17 09/11/17 09/11/17 09/12/17 09/12/17 09/12/17 07:00 15:00 23:00 07:00 15:00 23:00 Intake Total 0 ml 100 ml 1000 ml 240 ml 1000 ml Output Total 450 ml 1800 ml 3000 ml Balance -450 ml 100 ml -800 ml 240 ml -2000 ml Intake Oral 0 ml 240 ml IV Total 100 ml 1000 ml 1000 ml Output Urine Total 450 ml 1800 ml 3000 ml # Voids 3 4 # Bowel Movements 1 5 Laboratory Laboratory Tests Test 09/11/17 18:47 09/12/17 10:04 Blood Urea Nitrogen 14 12 Creatinine 2.13 2.06 Random Glucose 212 136 Calcium Level 8.6 8.2 Sodium Level 140 146 Potassium Level 3.9 3.6 Chloride Level 105 113 Carbon Dioxide Level 25.4 21.6 Anion Gap 10 11 Estimat Glomerular Filtration Rate 29 30 Date/Time Source Procedure Growth Status 09/08/17 07:53 Blood Peripheral Aerobic Blood Culture - Preliminary NO GROWTH IN 4 DAYS Resulted 09/08/17 07:53 Blood Peripheral Anaerobic Blood Culture - Preliminary NO GROWTH IN 4 DAYS Resulted 09/08/17 07:53 Urine Clean Catch Urine Culture - Final 10-50,000 CFU/ML MIXED GRAM POSITIVE ... Complete Imaging Last Impressions Abdomen X-Ray 09/12/17 0600 Signed Impressions: Service Date/Time: Tuesday, September 12, 2017 06:12 - CONCLUSION: 1. Interval evacuation of distal colonic stool in this patient with a history of impaction. 2. No evidence of ileus or contraction. Reji Porter MD Renal Ultrasound 09/12/17 0000 Signed Impressions: Service Date/Time: Tuesday, September 12, 2017 10:24 - CONCLUSION: 1. Bilateral hydronephrosis, right greater than left. 2. Distended urinary bladder with no significant emptying post void. David Lopez MD Enema w/Water Soluble 09/09/17 0000 Signed Impressions: Service Date/Time: Saturday, September 09, 2017 08:47 - CONCLUSION: Significant amount retained stool identified in the rectosigmoid colon. Reji Porter MD Physical Exam HEENT: Normocephalic; atraumatic CHEST: Even/unlabored CARDIAC: RRR ABDOMEN: Obese, soft, lower abdominal tenderness, bowel sounds active EXTREMITIES: No clubbing, cyanosis, or edema. SKIN: Normal; no rash; no jaundice. DOOR ASSEMBLER: Alert and oriented x 3 (Bella Eden) Assessment and Plan Plan - Fecal impaction- Last BM a week ago, Reports she has had chronic constipation for years, and she has been taking stool softeners, miralax and MOM as needed. Now really constipated with her last BM occurring last week. Reports similar episode last yr, having to drink GoLytely with good results. She wears depends due to constant leakage of stools. She has been having difficultly urinating as well. She reports one episode of vomiting on . Never had colonoscopy before. CT abdomen/pelvis showing significant stool burden likely causing bilateral hydroureter and urinary obstruction with possible left ureter leak, air in the bladder and gas- forming pyelonephritis. Urology consulted. - Urinary obstruction with possible left ureter leak, air in the bladder and gas-forming pyelonephritis. Urology consulted. - Leukocytosis- Hx of recent UTI, urine and blood cx pending, on abx - Anemia- Denies hematemesis, or hematochezia or hematuria. Could be anemia of chronic dz, DM, CKD - Hx DM type 2, HTN, depression/anxiety Per attending - 09/09/17,Gastro grafin enema diagnostic and therapeutic, Brown fluid, but no solid stool yet. Hemoglobin 9.8, alkaline phosphatase 238, AST 11. - LUQ and LLQ pain continues today, mild dizziness without syncope today when getting up out of bed. This is the first time she noted this symptom since this hospital stay. - Gastrograffin Enema done on 09/09/17. Significant amount of retained stool identified in the rectal sigmoid colon. (09/11) --> Pt had soap suds enema last night, states has had watery BMs since then but does not feel that much stool has come out. Continued lower abdominal pain. Pt currently NPO, however, she is not scheduled for sigmoidoscopy today. Will try medical management prior to procedures. Added GoLytely with repeat KUB in AM. Pt can also be placed on clear liquids. If no improvement with GoLytely an endoscopic procedure could be considered for tomorrow. (09/12) Pt with multiple BMs since yesterday, states overall feeling much better. Continued lower abdominal pain, bilateral, worse with palpation. Pt states she wants a colonoscopy to further evaluate. Denies ever having colonoscopy in the past. KUB noted --> Interval evacuation of distal colonic stool in this patient with a history of impaction. No evidence of ileus or contraction. Of note pt was found to have urinary retention, Sheikh catheter placed just prior to my exam with 2000 mL of urinary output. Denies any relief of lower abdominal pain after placement of catheter. Plan: Colonoscopy tomorrow Obtain consent GoLytely prep Clear liquids today NPO after MN Further recommendations based on findings of above Patient has been seen and examined by myself and Dr. Sanchez and this note is written on his behalf (Bella Eden) Physician Comments Seen and examined, plan as above. Colonoscopy in AM. (Vahid Sanchez MD) Bella Eden Sep 12, 2017 13:40 Vahid Sanchez MD Sep 12, 2017 15:29
[2017-09-12] MEDS ORDERED: hydrALAZINE HCL 20 MG/ML VIAL IV PUSH PRN (14:00)
[2017-09-12] MEDS ORDERED: PEG (High)/E-LYTE SOLN 4000 ML BTL PO ONE (16:00)
[2017-09-12] MEDS: cloNIDine HCL 0.1 MG TAB PO PRN ×2 (16:36→23:45)
[2017-09-12] MEDS: AMITRIPTYLINE HCL 25 MG TAB PO SCH (21:18)
[2017-09-13] VITALS (9 sets, daily range): BP systolic 136–188; BP diastolic 74–100; PULSE 97–126; RESP 18–20; TEMP 97.2–98.5; O2SAT 95–100
[2017-09-13] MEDS: SODIUM CHLOR 0.9% 1000 ML INJ 1,000 ML IV SCH ×4 (04:34→21:34)
[2017-09-13] MEDS: ACETAMINOPHEN/HYDROcodone 325 MG/7.5 MG TAB PO PRN ×3 (04:35→21:32)
[2017-09-13] MEDS: MORPHINE SULFATE 2 MG/ML INJ IV PUSH PRN ×2 (07:36→18:42)
[2017-09-13] MEDS: INSULIN ASPART SUPPLEMENTAL SCALE SQ SCH ×4 (08:00→21:00)
[2017-09-13 08:38] LABS: BICARBONATE 23.7 MEQ/L (21.0-32.0); CALCIUM 9.4 MG/DL (8.5-10.1); CREATININE 1.12 MG/DL (0.50-1.00)
[2017-09-13] MEDS: LACTULOSE SYRUP 20 GM/30 ML CUP PO SCH (09:41)
[2017-09-13] MEDS: HYDROCHLOROTHIAZIDE 25 MG TAB PO SCH (09:41)
[2017-09-13] MEDS: SODIUM CHLORIDE 0.9% FLUSH 10 ML FLUSH IV FLUSH SCH ×2 (09:41→21:33)
[2017-09-13] MEDS: DOCUSATE SODIUM 50 MG/SENNA 8.6 MG TAB PO SCH ×2 (09:42→21:32)
[2017-09-13] MEDS: HEPARIN SODIUM - SQ 10,000 UNITS/ML VIAL SQ SCH ×2 (09:47→21:33)
[2017-09-13] MEDS ORDERED: POTASSIUM CHLORIDE 20 MEQ CONTROLLED RELEASE TAB PO ONE ×2 (10:45→15:45)
[2017-09-13] MEDS ORDERED: METOPROLOL TARTRATE 25 MG TAB PO PRN (11:45)
[2017-09-13] MEDS ORDERED: CHLORHEXIDINE GLUCONATE 2 % 1 PACK (2 CLOTHS) TOPICAL PRN (11:45)
[2017-09-13] MEDS ORDERED: INSULIN HUMAN REGULAR 1,000 UNITS/10 ML VIAL SQ PRN (11:45)
[2017-09-13] MEDS ORDERED: LACTATED RINGER'S 1000 ML IV PRN (11:45)
[2017-09-13] MEDS ORDERED: POVIDONE IODINE 5% (ANTISEPSIS KIT) 4 APPLICATIONS EACH NARE PRN (11:45)
[2017-09-13] MEDS ORDERED: SODIUM CHLORID 0.9% 500 ML IV PRN (11:45)
[2017-09-13] MEDS ORDERED: LIDOCAINE HCL 1% PF 5 ML SYRINGE OTHER ONE (12:00)
[2017-09-13] MEDS ORDERED: PROPOFOL 200 MG/20 ML AMP IV ONE (12:00)
--- NOTE | 2017-09-13 12:29 | HHI.FPPN ---
Subjective Remarks Patient is currently at colonoscopy procedure. Not present in room. Blood pressures have been 170s-180s/100s, pulse tachycardic. Diuretic and hydralazine started yesterday. Amlodipine 10 mg added today. Potassium was repleted by 40 meq oral once today after result of 2.8 returned this morning. (Mely Pitts MD R1) Objective Vitals Vital Signs Date Time Temp Pulse Resp B/P (MAP) Pulse Ox O2 Delivery O2 Flow Rate FiO2 09/13/17 08:06 Room Air 09/13/17 08:00 104 09/13/17 08:00 97.9 108 20 171/83 (112) 95 09/13/17 06:09 17 09/13/17 04:00 97.8 120 20 170/100 (123) 98 09/13/17 04:00 97.5 97 20 180/80 (113) 95 09/13/17 00:00 98.1 101 18 182/100 (127) 98 09/12/17 21:10 Room Air 09/12/17 20:00 98.0 108 19 190/112 (138) 100 09/12/17 16:00 98.3 109 20 200/97 (131) 96 09/12/17 16:00 106 09/12/17 13:09 193/91 (125) 09/12/17 12:16 203/98 (133) I/O 09/12/17 09/12/17 09/12/17 09/13/17 09/13/17 09/13/17 07:00 15:00 23:00 07:00 15:00 23:00 Intake Total 240 ml 1000 ml 1920 ml Output Total 3000 ml 6950 ml 1200 ml Balance 240 ml -2000 ml -5030 ml -1200 ml Intake Oral 240 ml 1920 ml IV Total 1000 ml Output Urine Total 3000 ml 6950 ml 1200 ml # Voids 4 3 # Bowel Movements 5 1 (Mely Pitts MD R1) Result Diagram: 09/11/17 0830 09/13/17 0653 Objective Remarks Not able to assess, patient at procedure (Mely Pitts MD R1) A/P Assessment and Plan 57YO female w/PMHx DM type 2, HTN, and chronic constipation p/w abdominal pain x1 day with CT abdomen/pelvis showing significant stool burden likely contributing to bilateral hydroureter and urinary obstruction with possible left ureter leak, air in the bladder and gas-forming pyelonephritis. GI consulted for stool disimpaction. Urology consulted for urinary obstruction. Patient received gastric graft and administration 1, mineral oil enema 1, fleets enema 1, and several soapsuds enemas. Has received GoLYTELY 2. So far, patient has had multiple bowel movements. SANDY improved initially since admission but then worsened on 09/11. She was given 1L NS bolus x2. States that she had 1 large bowel movement and afterwards has begun to experience some lower abdominal and lower back pain. Abdominal exam shows evacuation of distal colonic stool. Renal ultrasound was ordered and showed bilateral hydronephrosis with distended urinary bladder. Bladder obstruction/retention was suspected, urine catheterization was performed. A total of 3 L of urine were drained in 1 hour. Patient to undergo colonoscopy on 09/13/2017 to identify possible source of obstruction. We'll plan for patient to follow-up with urology outpatient. If patient experiences improvement in kidney function during this hospitalization, would like to perform CT of the abdomen with contrast. Patient was at colonoscopy procedure today (09/13). Will reassess later this PM and address discontinuing amitriptyline use. (Mely Pitts MD R1) Attending Attestation Patient seen and examined. Case reviewed and discussed with the resident team. Agree with plan of care as discussed with me and documented in the resident note. (Amber Bhat MD) Problem List: (1) Acute kidney injury ICD Codes: N17.9 - Acute kidney failure, unspecified Status: Acute Plan: BUN 25 / Cr 2.63 on admit On 140 mls/hr of IVF Urine output of 1.2 L today. Creatinine improved to 1.12 today, from 2.06 yesterday. GFR improved to 61 from 30. NS bolus x2 She is on clear liquid diet Sheikh in place con't IVF see above for plan (2) Obstructive uropathy ICD Codes: N13.9 - Obstructive and reflux uropathy, unspecified Status: Acute Plan: Impacted stool on admission CT abdomen/pelvis showing obstructive uropathy with bilateral hydroureter and possible left ureter vs lower pole left kidney leak; also air in bladder Development of bladder distention and urinary retention, presumably since yesterday evening Sheikh catheter in place, draining 1-2 L of urine Urology consulted--appreciate recs. they recommend no surgery or other acute treatment. We'll set up follow up with patient outpatient - Continue Sheikh catheter placement over the next several days -GI consulted--appreciate recs - S/p gastrograffin enema on 09/09 to facilitate evacuation - We'll discuss use of amitriptyline with patient today (as it can contribute), consider tapering - Colonoscopy today, f/u results (3) Hypertension ICD Codes: I10 - Essential (primary) hypertension Status: Acute Plan: Holding home dose lisinopril due to SANDY (Cr 2.53 on admit) as well as bilateral hydroureter Will resume lisinopril pending improved Cr closer to baseline (0.7 on 03/20/17) Blood pressures have been elevated overnight amlodipine 10 mg PO daily added today hydrochlorothiazide 25 mg daily today hydralazine 10 mg IV every 6 hours PRN, clonidine 0.1 mg by mouth every 6 PRN to obtain better blood pressure control (4) Diabetes mellitus ICD Codes: E11.9 - Type 2 diabetes mellitus without complications Status: Acute Plan: Pt on insulin 36 units hs and Metformin 1000mg PO daily; pt states she discontinued glipizide recently; last A1C 12.6 09/17/15, down from 15 a month ago. she reports just starting insulin a month ago Hold in home insulin and Metformin -Fasting blood sugar w/in target range (140-180) - Con't low SSI (5) Anxiety and depression ICD Codes: F41.9 - Anxiety disorder, unspecified; F32.9 - Major depressive disorder, single episode, unspecified Plan: Takes home amitriptyline 50mg hs Reduced amitriptyline to 25 mg at bedtime. May reduce further (6) Microcytic anemia ICD Codes: D50.9 - Microcytic anemia Status: Acute Plan: microcytic, pt indicates she took Iron in the past -Hold on FeSO4 due to constipation (7) FEN/GI/PPx Status: Acute Plan: Fluids: NS IVF @140ml/hr Electrolytes: wnl; will monitor daily and replete as necessary Nutrition: Diabetic diet GI: hold PPI for now PPx: Heparin 5000 units subcu, hold if going for procedure (Mely Pitts MD R1) Problem Qualifiers (1) Hypertension: Qualified Codes: I10 - Essential (primary) hypertension (2) Diabetes mellitus: Qualified Codes: E11.8 - Type 2 diabetes mellitus with unspecified complications Mely Pitts MD R1 Sep 13, 2017 12:29 Amber Bhat MD Sep 14, 2017 13:52
--- NOTE | 2017-09-13 12:37 | GIPROC ---
[facility] [address] [facility]. [facility], [address] COLONOSCOPY PROCEDURE REPORT EXAM DATE: 09/13/2017 PATIENT NAME: Elise Nathan MR #: [id number] BIRTHDATE: 1960 ENDOSCOPIST: Vahid Sanchez MD ORDER #: [id number] SMOKE JUMPER SUPERVISOR: Chely Blake and Ga Canela STATUS: inpatient INDICATIONS: The patient is a 57 yr old female here for a colonoscopy due to constipation PROCEDURE PERFORMED: Sigmoidoscopy, diagnostic MEDICATIONS: None and Per Anesthesia. PREP QUALITY: poor PREP TYPE:Magnesium Citrate ESTIMATED BLOOD LOSS: None CONSENT: The patient understands the risks and benefits of the procedure and understands that these risks include, but are not limited to: sedation, allergic reaction, infection, perforation and/or bleeding. Alternative means of evaluation and treatment include, among others: physical exam, x-rays, and/or surgical intervention. The patient elects to proceed with this endoscopic procedure. medical equipment was checked for proper function. Hand hygiene and appropriate measures for infection prevention was taken. After the risks, benefits and alternatives of the procedure were thoroughly explained, Informed consent was verified, confirmed and timeout was successfully executed by the treatment team. A digital exam revealed no abnormalities of the rectum The Pentax [id number] endoscope was introduced through the anus and advanced to the sigmoid colon. The instrument was then slowly withdrawn as the colon was fully examined. COLON FINDINGS: A significant amount of stool was present in the sigmoid colon and rectum. Retroflexion was not performed due to a narrow rectal vault The scope was then completely withdrawn from the patient and the procedure terminated. PROCEDURE WITHDRAWAL TIME:15minutes ADVERSE EVENTS: There were no complications. IMPRESSIONS: 1. Significant amount of stool was present in the sigmoid colon and rectum 2. Limited exam to distal sigmoid, fecal material and poor prep. limitation RECOMMENDATIONS: High fiber diet. Avoid nuts, seeds, and popcorn. Chew your food well. RECALL: Return 3 months Colonoscopy Vahid Sanchez MD eSigned: Vahid Sanchez MD 09/13/2017 12:37 PM cc:
[2017-09-13 14:36] LABS: BICARBONATE 25.6 MEQ/L (21.0-32.0); CALCIUM 9.6 MG/DL (8.5-10.1); CREATININE 1.23 MG/DL (0.50-1.00)
--- NOTE | 2017-09-13 15:36 | HHI.FF ---
Face to Face Verification Diagnosis: (1) Obstructive uropathy (2) Fecal impaction Home Health Nursing Order: Medical education Diabetic education Medication education-adverse effect Sheikh catheter maintenance I have seen patient Elise Nathan on 09/13/17. My clinical findings support the need for the requested home health care services because: Med compliance is questionable I certify that my clinical findings support that this patient is homebound because: Need for psychosocial assistance Mely Pitts MD R1 Sep 13, 2017 15:36
[2017-09-13] MEDS: ZOLPIDEM TARTRATE 5 MG TAB PO PRN (18:41)
[2017-09-13] MEDS: PSYLLIUM HUSK SF 3.4 GM in 5.8 GM PKT PO SCH (21:00)
[2017-09-13] MEDS: AMITRIPTYLINE HCL 25 MG TAB PO SCH ×2 (21:33→21:35)
[2017-09-14] VITALS (7 sets, daily range): BP systolic 101–188; BP diastolic 57–86; PULSE 93–107; RESP 20; TEMP 97.3–98.2; O2SAT 96–99
--- NOTE | 2017-09-14 00:19 | HHI.FPPN ---
Addendum to progress note ADDENDUM Additional information S: Saw patient @ 2PM on 09/13 after colonoscopy procedure. States she is feeling well, would like to go home. Well-controlled pain, only in lower back. Alcaraz in place, draining clear, light yellow urine. No problems or acute complaints. Ambulating often, describes herself as active. States sometimes she gets "a little dizzy" while walking, but states this only occurs once in a while. Reports she is confident she is well enough to be able to take care of herself. O: Well-appearing F sitting comfortably in bed. Awake and alert. Normal ROM EOM intact. Mucous membranes moist Heart rate and rhythm regular, no new murmers Lungs clear to auscultation Abdomen non-distended but obese and soft No bilateral extremity edema A/P: See previous note - D/C amlodipine (has been tapered). Start Venlafaxine 37.5 mg daily starting tomorrow - Patient will need to continue Alcaraz use for at least a week due to urinary obstruction resulting in prerenal failure during admission. Transition patient to small,portable urinary catheter during the daytime and alcaraz catheter at night. - Will require home w/home health care for d/c for catheter maintenance and medical education for her hx of poorly controlled DM2 Seen w/Mely Jones MD R1 Sep 14, 2017 00:19
[2017-09-14] MEDS: MORPHINE SULFATE 2 MG/ML INJ IV PUSH PRN (01:49)
[2017-09-14] MEDS: ACETAMINOPHEN/HYDROcodone 325 MG/7.5 MG TAB PO PRN ×3 (05:49→22:24)
[2017-09-14] MEDS: cloNIDine HCL 0.1 MG TAB PO PRN (05:51)
[2017-09-14] MEDS: SODIUM CHLOR 0.9% 1000 ML INJ 1,000 ML IV SCH (05:51)
[2017-09-14] MEDS: HYDROCHLOROTHIAZIDE 25 MG TAB PO SCH (08:11)
[2017-09-14] MEDS: DOCUSATE SODIUM 50 MG/SENNA 8.6 MG TAB PO SCH ×2 (08:12→21:00)
[2017-09-14] MEDS: LACTULOSE SYRUP 20 GM/30 ML CUP PO SCH (08:12)
[2017-09-14] MEDS: SODIUM CHLORIDE 0.9% FLUSH 10 ML FLUSH IV FLUSH SCH ×2 (08:13→22:22)
[2017-09-14] MEDS: VENLAFAXINE HCL XR 37.5 MG CAP PO SCH (08:18)
[2017-09-14] MEDS: PSYLLIUM HUSK SF 3.4 GM in 5.8 GM PKT PO SCH ×2 (08:21→21:00)
[2017-09-14] MEDS: INSULIN ASPART SUPPLEMENTAL SCALE SQ SCH ×4 (08:27→22:28)
--- NOTE | 2017-09-14 08:42 | HHI.DCPOC ---
Discharge Care Plan Diagnosis: (1) DM type 2, uncontrolled, with neuropathy (2) Acute kidney injury (3) Fecal impaction (4) Obstructive uropathy Goals to Promote Your Health * To prevent worsening of your condition and complications * To maintain your health at the optimal level Directions to Meet Your Goals Take your medications as prescribed Follow your dietary instruction Follow activity as directed Keep your appointments as scheduled Take your immunizations and boosters as scheduled If your symptoms worsen call your PCP, if no PCP go to Urgent Care Center or Emergency Room Smoking is Dangerous to Your Health. Avoid second hand smoke Call the 24-hour hour crisis hotline for domestic abuse at Modesta Patel MD, R3 Sep 14, 2017 08:42
[2017-09-14] MEDS: HEPARIN SODIUM - SQ 10,000 UNITS/ML VIAL SQ SCH ×2 (09:28→22:22)
[2017-09-14 09:44] LABS: ALBUMIN 2.4 GM/DL (3.4-5.0); ALKALINE PHOSPHATASE 199 U/L (45-117); ALT (GPT) 18 U/L (10-53); AST (GOT) 7 U/L (15-37); BICARBONATE 28.3 MEQ/L (21.0-32.0); BLOOD UREA NITROGEN 4 MG/DL (7-18); CHLORIDE 104 MEQ/L (98-107); CREATININE 1.18 MG/DL (0.50-1.00); GLOMERULAR FILTRATION RATE 57 ML/MIN (>89); GLUCOSE,RANDOM 292 MG/DL (74-106); SODIUM (NA) 142 MEQ/L (136-145); TOTAL BILIRUBIN ADULT 0.2 MG/DL (0.2-1.0); TOTAL PROTEIN 6.5 GM/DL (6.4-8.2)
[2017-09-14] MEDS ORDERED: IBUPROFEN 600 MG TAB PO PRN (12:15)
[2017-09-14] MEDS ORDERED: POTASSIUM CHLORIDE 20 MEQ CONTROLLED RELEASE TAB PO ONE (13:15)
--- NOTE | 2017-09-14 13:37 | HHI.FPPN ---
Subjective Remarks Ms Nathan had multiple complaints this am. She was evidently feeling well intil a bit after 9 am. She had her am meds at about 815am and then her norvasc at 9. She blames her grits and eggs as she felt nauseated after eating those. She was able to eat dinner last night without significant problems. Her complaints today include nausea but no vomiting and crampy abdominal pain with more soft stool than diarrhea. Objective Vitals Vital Signs Date Time Temp Pulse Resp B/P (MAP) Pulse Ox O2 Delivery O2 Flow Rate FiO2 09/14/17 12:00 97 09/14/17 08:00 Room Air 09/14/17 08:00 97.3 97 20 145/81 (102) 97 09/14/17 08:00 97 09/14/17 04:18 97.7 105 20 188/84 (118) 98 09/14/17 04:00 Room Air 09/14/17 03:50 104 09/14/17 01:47 Room Air 09/14/17 00:06 98.2 103 20 171/86 (114) 99 09/13/17 23:47 103 09/13/17 21:52 Room Air 09/13/17 20:08 103 09/13/17 18:05 98.5 107 20 136/74 (94) 98 09/13/17 16:00 98.0 109 20 163/90 (114) 100 09/13/17 15:00 126 I/O 09/13/17 09/13/17 09/13/17 09/14/17 09/14/17 09/14/17 07:00 15:00 23:00 07:00 15:00 23:00 Intake Total 1000 ml 200 ml 1240 ml 2667 ml 500 ml Output Total 8115 ml 1200 ml 3175 ml 5250 ml 800 ml Balance -7115 ml -1000 ml -1935 ml -2583 ml -300 ml Intake Oral 240 ml 1667 ml IV Total 1000 ml 1000 ml 1000 ml 500 ml Other 200 ml Output Urine Total 8115 ml 1200 ml 3175 ml 5250 ml 800 ml # Bowel Movements 2 2 Result Diagram: 09/11/17 0830 09/14/17 0725 Objective Remarks CONSTITUTIONAL/GEN: some mild acute distress, reclining comfortably in bed except for some crampy lower abdominal pain EYES: conjunctiva normal LUNGS: clear A-P, respiratory effort is normal. CARDIOVASCULAR: RR without murmur or gallop. No significant edema. GI/ABD: soft without masses, mild tenderness with palpation over lower abdomen. no pain if distracted. NEURO: No focal deficits. SKIN: color normal, no rashes noted. MUSC: Extremities are normal in appearance. PSYCH/MENTAL STATUS: Alert and oriented x 3. Urinary Catheter: Yes Assessment to: Continue Sheikh insert reason: Obstruction/Retention A/P Assessment and Plan 57YO female w/PMHx DM type 2, HTN, and chronic constipation p/w abdominal pain x1 day with CT abdomen/pelvis showing significant stool burden likely contributing to bilateral hydroureter and urinary obstruction with possible left ureter leak, air in the bladder and gas-forming pyelonephritis. GI consulted for stool disimpaction. Urology consulted for urinary obstruction. Patient received gastric graft and administration 1, mineral oil enema 1, fleets enema 1, and several soapsuds enemas. Has received GoLYTELY 2. So far, patient has had multiple bowel movements. SANDY improved initially since admission but then worsened on 09/11. She was given 1L NS bolus x2. States that she had 1 large bowel movement and afterwards began to experience some lower abdominal and lower back pain. Abdominal exam shows evacuation of distal colonic stool. Renal ultrasound was ordered and showed bilateral hydronephrosis with distended urinary bladder. Bladder obstruction/retention was suspected, urine catheterization was performed. A total of 3 L of urine were drained in 1 hour. Patient to undergo colonoscopy on 09/13/2017 to identify possible source of obstruction. We'll plan for patient to follow-up with urology outpatient. If patient experiences improvement in kidney function during this hospitalization, would like to perform CT of the abdomen with contrast. Problem List: (1) Abdominal pain ICD Codes: R10.9 - Unspecified abdominal pain Plan: unsure exactly what is causing more pain today. she is eating more and blames her grits and eggs. It could be related to her diet or related to meds as she took all her meds around 815am. She is still taking anticonstipation meds plus she started on effexor. all these meds can cause abdominal cramping. she also feels some dizziness that she has a hard time categorizing. She has a frontal headache that she states she gets at home and requested an NSAID for. She doesn't clearly have orthostatic sxs though that is possible. Will recheck later today and hope she improves and can go home tomorrow (2) Obstructive uropathy ICD Codes: N13.9 - Obstructive and reflux uropathy, unspecified Status: Acute Plan: Impacted stool on admission CT abdomen/pelvis showing obstructive uropathy with bilateral hydroureter and possible left ureter vs lower pole left kidney leak; also air in bladder Development of bladder distention and urinary retention, which led to SANDY Sheikh catheter in place, draining well high volume of clear urine Urology consulted--appreciate recs. they recommend no surgery or other acute treatment. We'll set up follow up with patient outpatient - Continue Sheikh catheter placement over the next several days to week until she sees urology as an outpt -GI consulted--appreciate recs - S/p Gastrografin enema on 09/09 to facilitate evacuation stop amitriptyline as it can contribute to urinary retention and constipation - Colonoscopy done will reportedly need a repeat in a few months (3) Hypertension ICD Codes: I10 - Essential (primary) hypertension Status: Acute Plan: Holding home dose lisinopril due to SANDY (Cr 2.53 on admit) as well as bilateral hydroureter Will resume lisinopril pending improved Cr closer to baseline (0.7 on 03/20/17) Blood pressures have been elevated overnight, improved today amlodipine 10 mg PO daily added today hydrochlorothiazide 25 mg daily today hydralazine 10 mg IV every 6 hours PRN, clonidine 0.1 mg by mouth every 6 PRN to obtain better blood pressure control (4) Diabetes mellitus ICD Codes: E11.9 - Type 2 diabetes mellitus without complications Status: Acute Plan: Pt on insulin 36 units hs and Metformin 1000mg PO daily; pt states she discontinued glipizide recently; last A1C 12.6 09/17/15, down from 15 a month ago. she reports just starting insulin a month ago Hold in home insulin and Metformin -Fasting blood sugar w/in target range (140-180) - Con't low SSI (5) Anxiety and depression ICD Codes: F41.9 - Anxiety disorder, unspecified; F32.9 - Major depressive disorder, single episode, unspecified Plan: Takes home amitriptyline 50mg hs Reduced amitriptyline to 25 mg at bedtime. stopped now started effexor 37.[address] the [address] of amitriptyline (6) Microcytic anemia ICD Codes: D50.9 - Microcytic anemia Status: Acute Plan: microcytic, pt indicates she took Iron in the past -Hold on FeSO4 due to constipation (7) FEN/GI/PPx Status: Acute Plan: Fluids: NS IVF @140ml/hr, can heplock Electrolytes: wnl; will monitor daily and replete as necessary Nutrition: Diabetic diet GI: hold PPI for now PPx: Heparin 5000 units subcu, hold if going for procedure Problem Qualifiers (1) Abdominal pain: Qualified Codes: R10.30 - Lower abdominal pain, unspecified (2) Hypertension: Qualified Codes: I10 - Essential (primary) hypertension (3) Diabetes mellitus: Qualified Codes: E11.8 - Type 2 diabetes mellitus with unspecified complications Amber Bhat MD Sep 14, 2017 13:37
--- NOTE | 2017-09-14 14:42 | HHI.GIFU ---
Subjective Remarks pt resting in bed. c/o of some abd pain after eating breakfast, is ordering 2 sandwiches for lunch from dietary. No vomiting. +BM (Shante Khan) Objective Vitals I&O Vital Signs Date Time Temp Pulse Resp B/P (MAP) Pulse Ox O2 Delivery O2 Flow Rate FiO2 09/14/17 12:00 97 09/14/17 12:00 98.0 101 20 165/85 (111) 99 09/14/17 08:00 Room Air 09/14/17 08:00 97.3 97 20 145/81 (102) 97 09/14/17 08:00 97 09/14/17 04:18 97.7 105 20 188/84 (118) 98 09/14/17 04:00 Room Air 09/14/17 03:50 104 09/14/17 01:47 Room Air 09/14/17 00:06 98.2 103 20 171/86 (114) 99 09/13/17 23:47 103 09/13/17 21:52 Room Air 09/13/17 20:08 103 09/13/17 18:05 98.5 107 20 136/74 (94) 98 09/13/17 16:00 98.0 109 20 163/90 (114) 100 09/13/17 15:00 126 I/O 09/13/17 09/13/17 09/13/17 09/14/17 09/14/17 09/14/17 07:00 15:00 23:00 07:00 15:00 23:00 Intake Total 1000 ml 200 ml 1240 ml 2667 ml 500 ml Output Total 8115 ml 1200 ml 3175 ml 5250 ml 800 ml Balance -7115 ml -1000 ml -1935 ml -2583 ml -300 ml Intake Oral 240 ml 1667 ml IV Total 1000 ml 1000 ml 1000 ml 500 ml Other 200 ml Output Urine Total 8115 ml 1200 ml 3175 ml 5250 ml 800 ml # Bowel Movements 2 2 Laboratory Laboratory Tests Test 09/14/17 07:25 Blood Urea Nitrogen 4 Creatinine 1.18 Random Glucose 292 Total Protein 6.5 Albumin 2.4 Calcium Level 9.0 Alkaline Phosphatase 199 Aspartate Amino Transf (AST/SGOT) 7 Alanine Aminotransferase (ALT/SGPT) 18 Total Bilirubin 0.2 Sodium Level 142 Potassium Level 3.1 Chloride Level 104 Carbon Dioxide Level 28.3 Anion Gap 10 Estimat Glomerular Filtration Rate 57 Date/Time Source Procedure Growth Status 09/08/17 07:53 Blood Peripheral Aerobic Blood Culture - Final NO GROWTH IN 5 DAYS Complete 09/08/17 07:53 Blood Peripheral Anaerobic Blood Culture - Final NO GROWTH IN 5 DAYS Complete 09/08/17 07:53 Urine Clean Catch Urine Culture - Final 10-50,000 CFU/ML MIXED GRAM POSITIVE ... Complete Imaging Last Impressions Abdomen X-Ray 09/12/17 0600 Signed Impressions: Service Date/Time: Tuesday, September 12, 2017 06:12 - CONCLUSION: 1. Interval evacuation of distal colonic stool in this patient with a history of impaction. 2. No evidence of ileus or contraction. Reji Porter MD Renal Ultrasound 09/12/17 0000 Signed Impressions: Service Date/Time: Tuesday, September 12, 2017 10:24 - CONCLUSION: 1. Bilateral hydronephrosis, right greater than left. 2. Distended urinary bladder with no significant emptying post void. David Lopez MD Enema w/Water Soluble 09/09/17 0000 Signed Impressions: Service Date/Time: Saturday, September 09, 2017 08:47 - CONCLUSION: Significant amount retained stool identified in the rectosigmoid colon. Reji Porter MD Physical Exam HEENT: Normocephalic; atraumatic CHEST: Even/unlabored CARDIAC: RRR ABDOMEN: Obese, soft, lower abdominal tenderness, bowel sounds active EXTREMITIES: No clubbing, cyanosis, or edema. SKIN: Normal; no rash; no jaundice. 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 Now really constipated with her last BM occurring last week. Reports similar episode last yr, having to drink GoLytely with good results. She wears depends due to constant leakage of stools. She has been having difficultly urinating as well. She reports one episode of vomiting on . Never had colonoscopy before. CT abdomen/pelvis showing significant stool burden likely causing bilateral hydroureter and urinary obstruction with possible left ureter leak, air in the bladder and gas- forming pyelonephritis. Urology consulted. - Urinary obstruction with possible left ureter leak, air in the bladder and gas-forming pyelonephritis. Urology consulted. - Leukocytosis- Hx of recent UTI, urine and blood cx pending, on abx - Anemia- Denies hematemesis, or hematochezia or hematuria. Could be anemia of chronic dz, DM, CKD - Hx DM type 2, HTN, depression/anxiety Per attending - 09/09/17,Gastro grafin enema diagnostic and therapeutic, Brown fluid, but no solid stool yet. Hemoglobin 9.8, alkaline phosphatase 238, AST 11. - LUQ and LLQ pain continues today, mild dizziness without syncope today when getting up out of bed. This is the first time she noted this symptom since this hospital stay. - Gastrograffin Enema done on 09/09/17. Significant amount of retained stool identified in the rectal sigmoid colon. (09/11) --> Pt had soap suds enema last night, states has had watery BMs since then but does not feel that much stool has come out. Continued lower abdominal pain. Pt currently NPO, however, she is not scheduled for sigmoidoscopy today. Will try medical management prior to procedures. Added GoLytely with repeat KUB in AM. Pt can also be placed on clear liquids. If no improvement with GoLytely an endoscopic procedure could be considered for tomorrow. (09/12) Pt with multiple BMs since yesterday, states overall feeling much better. Continued lower abdominal pain, bilateral, worse with palpation. Pt states she wants a colonoscopy to further evaluate. Denies ever having colonoscopy in the past. KUB noted --> Interval evacuation of distal colonic stool in this patient with a history of impaction. No evidence of ileus or contraction. Of note pt was found to have urinary retention, Sheikh catheter placed just prior to my exam with 2000 mL of urinary output. Denies any relief of lower abdominal pain after placement of catheter. 09/14/17 s/p decompressive colonoscopy foudn significant stool. C/o of some abd pain still, unclear etiology and she is tolerating diet, ordering 2 sandwiches for lunch. Plan: - MARIA R - daily bowel regimen - supportive care - GI will sign off, please reconsult if needed Patient has been seen and examined by myself and Dr. Daniel and this note is written on his behalf (Shante Khan) Physician Comments As above, will need an outpatient colonoscopy, please notify us if needed . (Vahid Sanchez MD) Shante Khan Sep 14, 2017 14:42 Vahid Sanchez MD Sep 14, 2017 14:59
[2017-09-15] VITALS: BP 155/55; PULSE 101; PULSE 102; RESP 20; TEMP 98.7; O2SAT 94
[2017-09-15 04:00] VITALS: BP 152/81; PULSE 103; PULSE 99; RESP 20; TEMP 98; O2SAT 98
[2017-09-15 07:16] LABS: AUTOMATED NEUTROPHIL # 3.8 TH/MM3 (1.8-7.7); BASOPHIL # 0.1 TH/MM3 (0-0.2); BASOPHIL % 0.8 % (0.0-2.0); EOSINOPHIL # 0.3 TH/MM3 (0-0.4); EOSINOPHIL % 4.7 % (0.0-4.0); HEMATOCRIT 32.1 % (35.0-46.0); HEMOGLOBIN 10.2 GM/DL (11.6-15.3); LYMPHOCYTE # 2.4 TH/MM3 (1.0-4.8); MEAN CELL VOLUME 69.2 FL (80.0-100.0); MEAN CORPUSCULAR HGB CONC 31.8 % (32.0-36.0); MEAN PLATELET VOLUME 7.7 FL (7.0-11.0); MONOCYTE # 0.6 TH/MM3 (0-0.9); NEUT % 52.5 % (16.0-70.0); PLATELET COUNT 382 TH/MM3 (150-450); RED BLOOD COUNT 4.64 MIL/MM3 (4.00-5.30); RED CELL DISTRIBUTION WIDTH 15.4 % (11.6-17.2); WHITE BLOOD COUNT 7.2 TH/MM3 (4.0-11.0)
[2017-09-15 07:48] LABS: ALBUMIN 2.6 GM/DL (3.4-5.0); ALKALINE PHOSPHATASE 201 U/L (45-117); ALT (GPT) 29 U/L (10-53); AST (GOT) 25 U/L (15-37); BICARBONATE 34.3 MEQ/L (21.0-32.0); BLOOD UREA NITROGEN 10 MG/DL (7-18); CALCIUM 8.5 MG/DL (8.5-10.1); CHLORIDE 100 MEQ/L (98-107); CREATININE 1.15 MG/DL (0.50-1.00); GLOMERULAR FILTRATION RATE 59 ML/MIN (>89); GLUCOSE,RANDOM 332 MG/DL (74-106); SODIUM (NA) 141 MEQ/L (136-145); TOTAL BILIRUBIN ADULT 0.2 MG/DL (0.2-1.0); TOTAL PROTEIN 7.2 GM/DL (6.4-8.2)
[2017-09-15 08:30] VITALS: PULSE 100
[2017-09-15] MEDS: VENLAFAXINE HCL XR 37.5 MG CAP PO SCH (08:48)
[2017-09-15] MEDS: HEPARIN SODIUM - SQ 10,000 UNITS/ML VIAL SQ SCH (08:48)
[2017-09-15] MEDS: HYDROCHLOROTHIAZIDE 25 MG TAB PO SCH (08:48)
[2017-09-15] MEDS: ACETAMINOPHEN/HYDROcodone 325 MG/7.5 MG TAB PO PRN (08:49)
[2017-09-15] MEDS: LACTULOSE SYRUP 20 GM/30 ML CUP PO SCH (08:50)
[2017-09-15] MEDS: SODIUM CHLORIDE 0.9% FLUSH 10 ML FLUSH IV FLUSH SCH (08:50)
[2017-09-15] MEDS: INSULIN ASPART SUPPLEMENTAL SCALE SQ SCH ×2 (08:50→12:19)
[2017-09-15] MEDS: DOCUSATE SODIUM 50 MG/SENNA 8.6 MG TAB PO SCH (08:50)
[2017-09-15] MEDS: PSYLLIUM HUSK SF 3.4 GM in 5.8 GM PKT PO SCH (08:51)
[2017-09-15] MEDS ORDERED: INSULIN DETEMIR 100 UNITS/ML VIAL SQ SCH (09:00)
[2017-09-15 09:07] VITALS: BP 167/80; PULSE 99; RESP 16; TEMP 98.6; O2SAT 98
[2017-09-15] MEDS ORDERED: HYDR-3580 PO (09:57)
[2017-09-15] MEDS ORDERED: METF1000 PO (09:57)
[2017-09-15] MEDS ORDERED: HYDR25TA5 PO (09:57)
[2017-09-15] MEDS ORDERED: AMLO10 PO (09:57)
[2017-09-15] MEDS ORDERED: VENL1CAP38 PO (09:57)
[2017-09-15] MEDS ORDERED: LANTUS2P SQ (09:57)
[2017-09-15] MEDS ORDERED: AMBI5TAB PO (09:57)
--- NOTE | 2017-09-15 10:00 | HHI.DS ---
Discharge Summary Admission Date Sep 08, 2017 at 09:42 Admitting Diagnosis obstructive uropathy, acute renal failure, UTI, fecal impaction (1) Fecal impaction Plan: CT scan showing fecal impaction contributing to urinary obstruction; pt has hx of chronic constipation since May -GI consulted--appreciate recs - S/p gastrograffin enema x1, fleet enema, and soap and suds enema. Received Golytely x2. - X-ray 09/12 shows evacuation of colonic stool - Colonoscopy on 09/14 found significant stool ICD Codes: K56.41 - Fecal impaction Status: Resolved (2) Obstructive uropathy Plan: Impacted stool on admission CT abdomen/pelvis showing obstructive uropathy with bilateral hydroureter and possible left ureter vs lower pole left kidney leak; also air in bladder Development of bladder distention and urinary retention, which led to SANDY Alcaraz catheter in place, draining well high volume of clear urine Urology consulted--appreciate recs. they recommend no surgery or other acute treatment. We'll set up follow up with patient outpatient - Continue small portable urinary catheter and Alcaraz catheter placement over the next several days to week until she sees urology as an outpt -GI consulted--appreciate recs - S/p Gastrografin enema on 09/09 to facilitate evacuation ICD Codes: N13.9 - Obstructive and reflux uropathy, unspecified Status: Acute (3) Hypertension Plan: Holding home dose lisinopril due to SANDY (Cr 2.53 on admit) as well as bilateral hydroureter May resume resume lisinopril pending improved Cr closer to baseline (0.7 on 03/20) - this can be pursued outpatient Blood pressures have been elevated overnight but have improved throughout admission amlodipine 10 mg PO daily added today hydrochlorothiazide 25 mg daily today hydralazine 10 mg IV every 6 hours PRN clonidine 0.1 mg by mouth every 6 PRN to obtain better blood pressure control ICD Codes: I10 - Essential (primary) hypertension Status: Acute (4) Diabetes mellitus Plan: Pt on insulin 36 units hs and Metformin 1000mg PO daily; pt states she discontinued glipizide recently; last A1C 12.6 09/17/15, down from 15 a month ago. she reports just starting insulin a month ago Hold in home insulin and Metformin -Fasting blood sugar w/in target range (140-180) - Con't low SSI ICD Codes: E11.9 - Type 2 diabetes mellitus without complications Status: Acute (5) Anxiety and depression Plan: Discontinued amitriptyline due to risk for constipation Continue effexor 37.5 mg ICD Codes: F41.9 - Anxiety disorder, unspecified; F32.9 - Major depressive disorder, single episode, unspecified Status: Chronic (6) Microcytic anemia Plan: microcytic, pt indicates she took Iron in the past -Avoid FeSO4 with constipation ICD Codes: D50.9 - Microcytic anemia Status: Chronic Consultants Gastroenterology, urology, automotive refinish technician, dietary application development consultant, case management Brief History Ms Nathan is a 57YO female with PMHx DM type 2, HTN, depression/anxiety and chronic constipation presented w/abdominal pain that began the day before her admission at 6PM right after her daily insulin shot. Pt states she takes 36 units in the evening, and right after her injection, she started experiencing acute pain below her stomach that was radiating around her left side to left flank area. The pain was 10/10 on pain scale, throbbing in nature. States she never had this type of pain before. Reports she has had chronic constipation since May but before that she had normal daily bowel movements, but was now really constipated with her last BM occurring last week (, 08/30/17). Indicates she has been constipated before and had to take GoLytely last year one time and never wants to take that again unless she has to. Normally she gets lots of gas but only a small amount of stool. She wears pullups and states she can go through 100 pullups per day and not have any appreciable amount of stool. She was first diagnosed with DM on October 22, 2012 when she passed out in her kitchen and then was taken to where she was found to be hyperglycemic. Her PCP had her on Metformin BID, but it wasn't controlling her blood glucose adequately and her HbA1C was 15, so started insulin 4 weeks ago and still takes Metformin 1000mg daily. She normally has no trouble voiding and this is first time having trouble voiding. Denies burning sensation, hematuria, incontinence, but states her urine has been foul smelling lately and was given Bactrim for a UTI a week or two ago and recently completed it. Other sxs as per ROS. She had no result from her enemas so she went to radiology and had Gastrografin which is currently working well. She has had multiple stools today and is feeling improved. She had urinary obstruction as well on admission and has a alcaraz catheter which is draining well this am with some sediment. Her CA 125 was normal though she has an adnexal mass on her CT scan. CBC/BMP: 09/15/17 0634 09/15/17 0634 Significant Findings Laboratory Tests Test 09/12/17 10:04 09/13/17 06:53 09/13/17 13:13 09/14/17 07:25 Creatinine 2.06 MG/DL (0.50-1.00) 1.12 MG/DL (0.50-1.00) 1.23 MG/DL (0.50-1.00) 1.18 MG/DL (0.50-1.00) Random Glucose 136 MG/DL (74-106) 109 MG/DL (74-106) 142 MG/DL (74-106) 292 MG/DL (74-106) Calcium Level 8.2 MG/DL (8.5-10.1) Sodium Level 146 MEQ/L (136-145) 147 MEQ/L (136-145) 149 MEQ/L (136-145) Chloride Level 113 MEQ/L (98-107) 112 MEQ/L (98-107) 111 MEQ/L (98-107) Estimat Glomerular Filtration Rate 30 ML/MIN (>89) 61 ML/MIN (>89) 54 ML/MIN (>89) 57 ML/MIN (>89) Potassium Level 2.8 MEQ/L (3.5-5.1) 3.4 MEQ/L (3.5-5.1) 3.1 MEQ/L (3.5-5.1) Blood Urea Nitrogen 6 MG/DL (7-18) 4 MG/DL (7-18) Albumin 2.4 GM/DL (3.4-5.0) Alkaline Phosphatase 199 U/L (45-117) Aspartate Amino Transf (AST/SGOT) 7 U/L (15-37) Test 09/15/17 06:34 Hemoglobin 10.2 GM/DL (11.6-15.3) Hematocrit 32.1 % (35.0-46.0) Mean Corpuscular Volume 69.2 FL (80.0-100.0) Mean Corpuscular Hemoglobin 22.0 PG (27.0-34.0) Mean Corpuscular Hemoglobin Concent 31.8 % (32.0-36.0) Eosinophils (%) (Auto) 4.7 % (0.0-4.0) Creatinine 1.15 MG/DL (0.50-1.00) Random Glucose 332 MG/DL (74-106) Albumin 2.6 GM/DL (3.4-5.0) Alkaline Phosphatase 201 U/L (45-117) Carbon Dioxide Level 34.3 MEQ/L (21.0-32.0) Estimat Glomerular Filtration Rate 59 ML/MIN (>89) Imaging Last Impressions Abdomen X-Ray 09/12/17 0600 Signed Impressions: Service Date/Time: Tuesday, September 12, 2017 06:12 - CONCLUSION: 1. Interval evacuation of distal colonic stool in this patient with a history of impaction. 2. No evidence of ileus or contraction. Reji Porter MD Renal Ultrasound 09/12/17 0000 Signed Impressions: Service Date/Time: Tuesday, September 12, 2017 10:24 - CONCLUSION: 1. Bilateral hydronephrosis, right greater than left. 2. Distended urinary bladder with no significant emptying post void. David Lopez MD Enema w/Water Soluble 09/09/17 0000 Signed Impressions: Service Date/Time: Saturday, September 09, 2017 08:47 - CONCLUSION: Significant amount retained stool identified in the rectosigmoid colon. Reji Porter MD PE at Discharge CONSTITUTIONAL/GEN: some mild acute distress, reclining comfortably in bed except for some crampy lower abdominal pain EYES: conjunctiva normal LUNGS: clear A-P, respiratory effort is normal. CARDIOVASCULAR: RR without murmur or gallop. No significant edema. GI/ABD: soft without masses, mild tenderness with palpation over lower abdomen. no pain if distracted. NEURO: No focal deficits. SKIN: color normal, no rashes noted. MUSC: Extremities are normal in appearance. PSYCH/MENTAL STATUS: Alert and oriented x 3. Hospital Course 57YO female w/PMHx DM type 2, HTN, and chronic constipation since May of 2017 presents w/ abdominal pain x1 day with CT abdomen/pelvis showing significant stool burden likely contributing to bilateral hydroureter and urinary obstruction with possible left ureter leak, air in the bladder. SANDY found on labs, w/Cr of 2.63 and BUN of 25. GI consulted for stool disimpaction. Urology consulted for urinary obstruction. Patient received Gastrografin administration 1, mineral oil enema 1, fleets enema 1, and several soapsuds enemas. Has received GoLYTELY 2. So far, patient has had multiple bowel movements. SANDY improved initially since admission but then worsened on 09/11. She was given 1L NS bolus x2. States that she had 1 large bowel movement and afterwards began to experience some lower abdominal and lower back pain. Abdominal exam shows evacuation of distal colonic stool. Renal ultrasound was ordered and showed bilateral hydronephrosis with distended urinary bladder. Bladder obstruction/retention was suspected, urine catheterization was performed. A total of 3 L of urine were drained in 1 hour. Patient underwent colonoscopy on 09/13/2017 to identify possible source of obstruction - none were identified, only stool was observed. Patient's abdominal pain improved today and BUN/Cr has been stable at 10/1.15; due to improvement and patient request to go home, discharge was planned. Per GI recs, patient will follow-up with GI in 3 months for colonoscopy. We'll need to follow up with urology in a week as she was discharged with a small, portable urinary catheter to ensure continued, adequate urination. Case management arranged for patient to receive home health , which will help her with instructions on how to use urinary catheter and for medication education for proper management of her diabetes. Patient will need to follow-up with her primary care provider within a week as well, for management of her diabetes mellitus and high blood pressure. Pt Condition on Discharge: Stable Discharge Disposition: Disch w/ Home Health Serv Discharge Instructions DIET: Follow Instructions for: As Tolerated, No Restrictions Activities you can perform: Regular-No Restrictions Follow up Referrals: Gastroenterology - 1 Week with Vahid Sanchez MD PCP Follow-up - 2 Weeks with [facility],Physician [facility]/ with [facility] Urology - 1 Week with Hua Perez MD New Medications: Insulin Glargine Inj (Lantus Inj) 1,000 Unit/10 Ml Vial 36 UNITS SQ HS for Blood Sugar Management, #2 VIAL 2 Refills Amlodipine (Norvasc) 10 Mg Tab 10 MG PO DAILY, #30 TAB 1 Refill Hydrochlorothiazide (Hydrochlorothiazide) 25 Mg Tab 25 MG PO DAILY, #30 TAB 2 Refills Hydrocodone/Acetaminophen (Hydrocodone-Acetamin 7.5-325) 7.5 Mg-325 Mg Tablet 1 TAB PO Q6H PRN for PAIN SCALE 7 TO 10, #15 Venlafaxine ER 24 HR (Effexor XR 24 HR) 37.5 Mg Cap 37.5 MG PO DAILY, #30 CAP 2 Refills Zolpidem (Ambien) 5 Mg Tab 5 MG PO HS PRN for INSOMNIA, #30 TAB 1 Refill Continued Medications: Lisinopril (Lisinopril) 5 Mg Tab 5 MG PO DAILY for Blood Pressure Management, #30 TAB 0 Refills Metformin (Metformin) 1,000 Mg Tab 1000 MG PO BIDPC for Blood Sugar Management, #60 TAB 2 Refills (This prescription has been renewed) With meals Discontinued Medications: Amitriptyline (Amitriptyline) 25 Mg Tab 50 MG PO HS, TAB GildadMely MD R1 Sep 15, 2017 10:00
--- NOTE | 2017-09-15 10:01 | HHI.FPPN ---
Subjective Remarks Ms Nathan feels very well today. She ate her entire breakfast and has no abdominal pain to speak of. She had 2 bowel movements this am semisolid and is ambulating around the room without any complaints. She requests discharge today. We discussed follow up with Urology as she had urinary retention of about 2 liters. We also discussed follow up with GI as she had colonoscopy but not completely visualized as well as her serious constipation needs to be prevented. She will follow up with Family Medicine as she has unresolved issues with her BP and DM that need further control. Objective Vitals Vital Signs Date Time Temp Pulse Resp B/P (MAP) Pulse Ox O2 Delivery O2 Flow Rate FiO2 09/15/17 09:07 98.6 99 16 167/80 (109) 98 09/15/17 04:00 98.0 103 20 152/81 (104) 98 09/15/17 04:00 99 09/15/17 04:00 Room Air 09/15/17 00:00 102 09/15/17 00:00 Room Air 09/15/17 00:00 98.7 101 20 155/55 (88) 94 09/14/17 22:20 Room Air 09/14/17 20:00 107 09/14/17 20:00 97.5 105 20 101/57 (72) 96 09/14/17 16:00 98.0 98 20 148/74 (98) 98 09/14/17 16:00 93 09/14/17 12:00 97 09/14/17 12:00 98.0 101 20 165/85 (111) 99 I/O 09/14/17 09/14/17 09/14/17 09/15/17 09/15/17 09/15/17 07:00 15:00 23:00 07:00 15:00 23:00 Intake Total 2667 ml 500 ml 600 ml 2220 ml Output Total 5250 ml 800 ml 1825 ml 3700 ml Balance -2583 ml -300 ml -1225 ml -1480 ml Intake Oral 1667 ml 600 ml 2220 ml IV Total 1000 ml 500 ml Output Urine Total 5250 ml 800 ml 1825 ml 3700 ml # Bowel Movements 1 2 Result Diagram: 09/15/17 0634 09/15/17 06 Objective Remarks CONSTITUTIONAL/GEN: no distress, reclining comfortably in bed wanting to go home now EYES: conjunctiva normal LUNGS: clear A-P, respiratory effort is normal. CARDIOVASCULAR: RR without murmur or gallop. No significant edema. GI/ABD: soft without masses, mild tenderness with palpation over lower abdomen. no pain if distracted. NEURO: No focal deficits. SKIN: color normal, no rashes noted. MUSC: Extremities are normal in appearance. PSYCH/MENTAL STATUS: Alert and oriented x 3. Urinary Catheter: Yes Sheikh insert reason: Obstruction/Retention Vascular Central Line Catheter: No A/P Assessment and Plan 57YO female w/PMHx DM type 2, HTN, and chronic constipation since May of 2017 p/w abdominal pain x1 day with CT abdomen/pelvis showing significant stool burden likely contributing to bilateral hydroureter and urinary obstruction with possible left ureter leak, air in the bladder and gas-forming pyelonephritis. GI consulted for stool disimpaction. Urology consulted for urinary obstruction. Patient received Gastrografin administration 1, mineral oil enema 1, fleets enema 1, and several soapsuds enemas. Has received GoLYTELY 2. So far, patient has had multiple bowel movements. SANDY improved initially since admission but then worsened on 09/11. She was given 1L NS bolus x2. States that she had 1 large bowel movement and afterwards began to experience some lower abdominal and lower back pain. Abdominal exam shows evacuation of distal colonic stool. Renal ultrasound was ordered and showed bilateral hydronephrosis with distended urinary bladder. Bladder obstruction/ retention was suspected, urine catheterization was performed. A total of 3 L of urine were drained in 1 hour. Patient to undergo colonoscopy on 09/13/2017 to identify possible source of obstruction. We'll plan for patient to follow-up with urology outpatient. If patient experiences improvement in kidney function during this hospitalization, would like to perform CT of the abdomen with contrast. Problem List: (1) Obstructive uropathy ICD Codes: N13.9 - Obstructive and reflux uropathy, unspecified Status: Acute Plan: Impacted stool on admission CT abdomen/pelvis showing obstructive uropathy with bilateral hydroureter and possible left ureter vs lower pole left kidney leak not seen by Urology; also air in bladder Development of bladder distention and urinary retention, which led to SANDY Sheikh catheter in place, draining well high volume of clear urine Urology consulted--appreciate recs. they recommend no surgery or other acute treatment. We'll set up follow up with patient outpatient - Continue Sheikh catheter placement over the next several days to week until she sees urology as an outpt -GI consulted--appreciate recs - S/p Gastrografin enema on 09/09 to facilitate evacuation stop amitriptyline as it can contribute to urinary retention and constipation - Colonoscopy done will reportedly need a repeat in a few months (2) Elevated alkaline phosphatase level ICD Codes: R74.8 - Abnormal levels of other serum enzymes Status: Acute Plan: this can be further evaluated and worked up as an outpt (3) Hypertension ICD Codes: I10 - Essential (primary) hypertension Status: Acute Plan: Holding home dose lisinopril due to SANDY (Cr 2.53 on admit) as well as bilateral hydroureter Will resume lisinopril pending improved Cr closer to baseline (0.7 on 03/20/17) Blood pressures have been elevated amlodipine 10 mg PO daily added hydrochlorothiazide 25 mg daily today hydralazine 10 mg IV every 6 hours PRN, clonidine 0.1 mg by mouth every 6 PRN to obtain better blood pressure control will need further adjustment as an outpt (4) Diabetes mellitus ICD Codes: E11.9 - Type 2 diabetes mellitus without complications Status: Acute Plan: Pt on insulin 36 units hs and Metformin 1000mg PO daily; pt states she discontinued glipizide recently; last A1C 12.6 09/17/15, down from 15 a month ago. she reports just starting insulin a month ago -Fasting blood sugar w/in target range (140-180) -she can resume her insulin and metformin as an outpt (5) Anxiety and depression ICD Codes: F41.9 - Anxiety disorder, unspecified; F32.9 - Major depressive disorder, single episode, unspecified Status: Chronic Plan: Takes home amitriptyline 50mg hs Reduced amitriptyline to 25 mg at bedtime. stopped now started effexor 37.5 mg to [address] the place of amitriptyline (6) Microcytic anemia ICD Codes: D50.9 - Microcytic anemia Status: Acute Plan: microcytic, pt indicates she took Iron in the past -Hold on FeSO4 due to constipation can evaluate further as outpt (7) Abdominal pain ICD Codes: R10.9 - Unspecified abdominal pain Status: Resolved Plan: unsure exactly what caused more pain today. she was eating more and blames her grits and eggs. It could be related to her diet or related to meds as she took all her meds around 815am. She is still taking anticonstipation meds plus she started on effexor. all these meds can cause abdominal cramping. she also feels some dizziness that she has a hard time categorizing. She had a frontal headache that she states she gets at home and requested an NSAID for. She doesn't clearly have orthostatic sxs though that is possible. she is doing very well today and requests D/C home (8) FEN/GI/PPx Status: Acute Plan: Fluids: heplock Electrolytes: wnl; will monitor daily and replete as necessary Nutrition: Diabetic diet GI: hold PPI for now PPx: Heparin 5000 units subcu, hold if going for procedure Problem Qualifiers (1) Hypertension: Qualified Codes: I10 - Essential (primary) hypertension (2) Diabetes mellitus: Qualified Codes: E11.8 - Type 2 diabetes mellitus with unspecified complications (3) Abdominal pain: Qualified Codes: R10.30 - Lower abdominal pain, unspecified Amber Bhat MD Sep 15, 2017 10:01
== END 2017-09-15 13:22 | disposition home health service (06) | DRG 683 ==
LOC: NEPE 06:51 → NEDA 09:42 → N04A 10:49
PROVIDERS: ADMIT Family Medicine; ATTEND Family Medicine
PROC: 0DJD8ZZ Inspection of Lower Intestinal Tract, Via Natural or Artificial Opening Endoscopic (ICD-10-PCS; principal; 2017-09-13 11:37)
DX: N17.9 Acute kidney failure, unspecified (principal); N39.0 Urinary tract infection, site not specified; E11.40 Type 2 diabetes mellitus with diabetic neuropathy, unspecified; E11.65 Type 2 diabetes mellitus with hyperglycemia; Z79.84 Long term (current) use of oral hypoglycemic drugs; Z79.4 Long term (current) use of insulin; I10 Essential (primary) hypertension; D50.9 Iron deficiency anemia, unspecified; N13.4 Hydroureter; K56.41 Fecal impaction; K59.09 Other constipation; R33.9 Retention of urine, unspecified; F32.9 Major depressive disorder, single episode, unspecified; F41.9 Anxiety disorder, unspecified; R51 Headache; E66.9 Obesity, unspecified; Z68.31 Body mass index [BMI] 31.0-31.9, adult; F17.210 Nicotine dependence, cigarettes, uncomplicated
CPT/HCPCS: 74018; 74270; 76775; 80048; 80053; 81001; 82948; 83036; 83605; 85014; 85018; 85025; 86304; 87040; 87086; 93005; 96361; 96374; J0360; J0696; J1644; J1815; J2270; J2405; J7030; Q9963

== ENCOUNTER 2017-09-15 22:37 | Emergency (ER) | payer MEDICARE, OTHER ==
[~2017-09-15] VITALS: Ht 165.1 cm; Wt 115.0 kg
[~2017-09-15 22:37] MED LIST changes: +AMBI5TAB PO; +AMLO10 PO; -BACT800T5 PO; +HYDR-3580 PO; +HYDR25TA5 PO; +LANTUS2P SQ; +VENL1CAP38 PO
[2017-09-15 23:20] VITALS: BP 181/73; PULSE 115; RESP 18; TEMP 98.2; O2SAT 98
--- NOTE | 2017-09-16 00:26 | PD ---
HPI Chief Complaint: Diabetes Specialist Problem Time Seen by Provider: 00:18 Travel History International Travel<30 days: No Contact w/Intl Traveler<30days: No Traveled to known affect area: No History of Present Illness HPI 57-year-old female who was discharged from the hospital today after being admitted on 09/08/17 for obstructive uropathy, here for help with her Sheikh bag. The patient tells me that she would like to change from her leg bag to the larger bag for night. She tells me that home health was arranged, however they will not be at her home until the morning. She has no physical complaints. PFSH Past Medical History Hx Anticoagulant Therapy: No Depression: Yes Cancer: No Cardiovascular Problems: Yes Chemotherapy: No Cerebrovascular Accident: No Diabetes: Yes Diminished Hearing: No Endocrine: Yes Genitourinary: No Immune Disorder: No Musculoskeletal: No Neurologic: No Psychiatric: Yes (DEPRESSION) Reproductive: No Respiratory: No Immunizations Current: No Ulcer: Yes : 1 Para: 1 Past Surgical History Hysterectomy: No Social History Alcohol Use: No Tobacco Use: Yes (4-5 CIGGS PER WEEK) Substance Use: No Allergies-Medications (Allergen,Severity, Reaction): Coded Allergies: No Known Allergies (Verified Adverse Reaction, Unknown, 09/15/17) Reported Meds & Prescriptions Reported Meds & Active Scripts Active Lantus Inj (Insulin Glargine) 1,000 Unit/10 Ml Vial 36 Units SQ HS Norvasc (Amlodipine Besylate) 10 Mg Tab 10 Mg PO DAILY Ambien (Zolpidem Tartrate) 5 Mg Tab 5 Mg PO HS PRN Hydrochlorothiazide 25 Mg Tab 25 Mg PO DAILY Effexor XR 24 HR (Venlafaxine HCl) 37.5 Mg Cap 37.5 Mg PO DAILY Hydrocodone-Acetamin 7.5-325 (Hydrocodone/Acetaminophen) 7.5 Mg-325 Mg Tablet 1 Tab PO Q6H PRN Metformin (Metformin HCl) 1,000 Mg Tab 1,000 Mg PO BIDPC With meals Lisinopril 5 Mg Tab 5 Mg PO DAILY Glipizide 5 Mg Tab 5 Mg PO BIDAC Take 30 minutes before a meal Review of Systems Except as stated in HPI: all other systems reviewed are Neg Physical Exam Narrative GENERAL: Well-developed, well-nourished, comfortable, no apparent distress. SKIN: Focused skin assessment warm/dry. CARDIOVASCULAR: Regular rate and rhythm. RESPIRATORY: No accessory muscle use. GASTROINTESTINAL: Abdomen soft, non-tender, nondistended. : Sheikh with leg bag with clear/yellow urine. PSYCHIATRIC: Appropriate mood and affect; insight and judgment normal. Data Data Last Documented VS Vital Signs Date Time Temp Pulse Resp B/P (MAP) Pulse Ox O2 Delivery O2 Flow Rate FiO2 09/15/17 23:20 98.2 115 18 181/73 (109) 98 MDM Medical Decision Making Medical Screen Exam Complete: Yes Emergency Medical Condition: Yes Differential Diagnosis Sheikh catheter evaluation Narrative Course This is a 57-year-old female who was discharged from the hospital today after being admitted on 09/08/17 for obstructive uropathy, discharged home with a Sheikh catheter, requesting that we change her leg bag to a large bag because it is nighttime. Apparently home health was arranged, however they will not be there until tomorrow. She has no other complaints. Sheikh catheter shows clear urine output. Large bag will be replaced by the patient's nurse and the patient will be discharged home. Diagnosis Primary Impression: Sheikh catheter in place Referrals: Primary Care Physician 3 days Disposition: DISCHARGE HOME Condition: Stable Ned Lynn MD Sep 16, 2017 00:26
== END 2017-09-16 01:14 | disposition home or self-care (01) ==
LOC: NEPD 22:37
DX: Z46.6 Encounter for fitting and adjustment of urinary device (principal); F32.9 Major depressive disorder, single episode, unspecified; E11.9 Type 2 diabetes mellitus without complications; F17.210 Nicotine dependence, cigarettes, uncomplicated; Z79.4 Long term (current) use of insulin; Z79.899 Other long term (current) drug therapy
CPT/HCPCS: 99282

== ENCOUNTER 2017-09-21 19:43 | Emergency (ER) | payer MEDICARE, OTHER ==
[~2017-09-21] VITALS: Ht 172.7 cm; Wt 89.0 kg
[~2017-09-21 19:43] MED LIST changes: -AMIT25TA9 PO
[2017-09-21 19:57] VITALS: BP 174/81; PULSE 121; RESP 16; TEMP 98.6; O2SAT 99
--- NOTE | 2017-09-21 23:16 | PD ---
HPI Chief Complaint: Caddie Problem Time Seen by Provider: 22:57 Travel History International Travel<30 days: No Contact w/Intl Traveler<30days: No Traveled to known affect area: No History of Present Illness HPI Patient comes in requesting to have her Alcaraz removed. States that it has been in place since September 06 and since the discharge of September 15. Patient was supposed to have it removed however she has been going to different neurologist who did not take her Medicare insurance. She tried 2 separate encounters at which time she found out that she was not eligible and continued to have her Alcaraz in place. Today her home health nurse came and stated that she could not remove it either, so she recommended that she come into the ER to have it removed. Patient states that prior to this visit here she was able to empty her bladder and was doing well. No known drug allergy Past medical history significant for hyperlipidemia hypertension ulcer diabetes depression PFSH Past Medical History Hx Anticoagulant Therapy: No Depression: Yes Cancer: No Cardiovascular Problems: Yes Chemotherapy: No Cerebrovascular Accident: No Diabetes: Yes Patient Takes Glucophage: Yes Diminished Hearing: No Endocrine: Yes Genitourinary: No Hypertension: Yes Immune Disorder: No Musculoskeletal: No Neurologic: No Psychiatric: Yes (DEPRESSION) Reproductive: No Respiratory: No Immunizations Current: No Ulcer: Yes : 1 Para: 1 Past Surgical History Hysterectomy: No Other Surgery: Yes Social History Alcohol Use: No Tobacco Use: Yes (4-5 CIGGS PER WEEK) Substance Use: No Allergies-Medications (Allergen,Severity, Reaction): Coded Allergies: No Known Allergies (Verified Allergy, Unknown, 09/26/17) Reported Meds & Prescriptions Reported Meds & Active Scripts Active Lantus Inj (Insulin Glargine) 1,000 Unit/10 Ml Vial 36 Units SQ HS Norvasc (Amlodipine Besylate) 10 Mg Tab 10 Mg PO DAILY Ambien (Zolpidem Tartrate) 5 Mg Tab 5 Mg PO HS PRN Hydrochlorothiazide 25 Mg Tab 25 Mg PO DAILY Effexor XR 24 HR (Venlafaxine HCl) 37.5 Mg Cap 37.5 Mg PO DAILY Hydrocodone-Acetamin 7.5-325 (Hydrocodone/Acetaminophen) 7.5 Mg-325 Mg Tablet 1 Tab PO Q6H PRN Metformin (Metformin HCl) 1,000 Mg Tab 1,000 Mg PO BIDPC With meals Lisinopril 5 Mg Tab 5 Mg PO DAILY Glipizide 5 Mg Tab 5 Mg PO BIDAC Take 30 minutes before a meal Review of Systems Except as stated in HPI: all other systems reviewed are Neg General / Constitutional: No: Fever Eyes: No: Visual changes HENT: No: Headaches Cardiovascular: No: Chest Pain or Discomfort Respiratory: No: Shortness of Breath Gastrointestinal: No: Abdominal Pain Genitourinary: No: Dysuria Musculoskeletal: No: Pain Skin: No Rash Neurologic: No: Weakness Psychiatric: No: Depression Endocrine: No: Polydipsia Hematologic/Lymphatic: No: Easy Bruising Physical Exam Narrative GENERAL: SKIN: Warm and dry. HEAD: Atraumatic. Normocephalic. EYES: Pupils equal and round. No scleral icterus. No injection or drainage. ENT: No nasal bleeding or discharge. Mucous membranes pink and moist. NECK: Trachea midline. No JVD. CARDIOVASCULAR: Regular rate and rhythm. RESPIRATORY: No accessory muscle use. Clear to auscultation. Breath sounds equal bilaterally. GASTROINTESTINAL: Abdomen soft, non-tender, nondistended. MUSCULOSKELETAL: Extremities without clubbing, cyanosis, or edema. No obvious deformities. NEUROLOGICAL: Awake and alert. No obvious cranial nerve deficits. Motor grossly within normal limits. Five out of 5 muscle strength in the arms and legs. Normal speech. PSYCHIATRIC: Appropriate mood and affect; insight and judgment normal. Data Data Last Documented VS Orders Orders Ed Discharge Order (09/21/17 23:30) Remove Urinary Catheter .ONCE (09/21/17 23:58) MDM Medical Decision Making Medical Screen Exam Complete: Yes Emergency Medical Condition: Yes Medical Record Reviewed: Yes Differential Diagnosis Patient is here for Alcaraz catheter removal Narrative Course clinicallly alcaraz will be removed and patient advised that should she experience urinary retention again that she should return to er to reeplace alcaraz and she MUST be evaluated by UROLOGIST, since no clear explanation for repeated retention....pt voices understanding and will follow up Diagnosis Primary Impression: Encounter for Alcaraz catheter removal Patient Instructions: General Instructions Disposition: 01 DISCHARGE HOME Condition: Stable Malick Angeles MD Sep 21, 2017 23:16
== END 2017-09-22 00:37 | disposition home or self-care (01) ==
LOC: NEPD 19:43
DX: Z46.6 Encounter for fitting and adjustment of urinary device (principal); I10 Essential (primary) hypertension; E11.9 Type 2 diabetes mellitus without complications; E78.5 Hyperlipidemia, unspecified; F32.9 Major depressive disorder, single episode, unspecified; F17.210 Nicotine dependence, cigarettes, uncomplicated
CPT/HCPCS: 99283

== ENCOUNTER 2017-09-25 17:45 | Inpatient (IN) | payer MEDICARE, OTHER ==
[~2017-09-25] VITALS: Ht 172.7 cm; Wt 89.4 kg
[2017-09-25] VITALS (7 sets, daily range): BP systolic 107–141; BP diastolic 59–68; PULSE 104–140; RESP 16–20; TEMP 99–102; O2SAT 97–100
[2017-09-25] MEDS ORDERED: VANCOMYCIN INJ 1,000 MG in SODIUM CHLOR 0.9% 250 ML INJ 250 ML IV ONE (18:45)
[2017-09-25] MEDS ORDERED: PIPERACIL-TAZO 4.5 GM PREMIX 100 ML IV ONE (18:45)
[2017-09-25] MEDS ORDERED: ACETAMINOPHEN/HYDROcodone 325 MG/5 MG TAB PO ONE (18:45)
[2017-09-25] MEDS ORDERED: SODIUM CHLOR 0.9% 1000 ML INJ 1,000 ML IV ONE (18:45)
--- NOTE | 2017-09-25 18:56 | PD ---
HPI Chief Complaint: Abdominal Pain Time Seen by Provider: 18:32 Travel History International Travel<30 days: No Contact w/Intl Traveler<30days: No Traveled to known affect area: No History of Present Illness HPI Patient is a 57-year-old female presents emergency department for "the same thing that happened last time". Patient states that she thinks she has a bowel obstruction and she is being treated outpatient for urinary tract infection. Noted be febrile and tachycardic in the emergency department waiting room she was moved to bed as expeditiously as possible for consideration of sepsis workup. Patient appears fairly well but states that she has been feeling rundown for some time. Somewhat eccentric a lot of the history is obtained from her medical record. On September 08 patient presented to the emergency department for acute renal failure secondary to obstructive uropathy. Apparently at that time the patient had fecal impaction which was leading to some renal obstruction and acute kidney injury. She was placed on antibiotics and admitted to the hospital. she was also given GoLYTELY and eventually her kidney function improved. Patient states her symptoms are severe, for the past few days, context as above, associated signs symptoms as above PFSH Past Medical History Hx Anticoagulant Therapy: No Depression: Yes Cancer: No Cardiovascular Problems: Yes Chemotherapy: No Cerebrovascular Accident: No Diabetes: Yes Patient Takes Glucophage: Yes Diminished Hearing: No Endocrine: Yes Genitourinary: No Hypertension: Yes Immune Disorder: No Musculoskeletal: No Neurologic: No Psychiatric: Yes (DEPRESSION) Reproductive: No Respiratory: No Immunizations Current: No Ulcer: Yes : 1 Para: 1 Past Surgical History Hysterectomy: No Other Surgery: Yes Social History Alcohol Use: No Tobacco Use: Yes (4-5 CIGGS PER WEEK) Substance Use: No Allergies-Medications (Allergen,Severity, Reaction): Coded Allergies: No Known Allergies (Verified Adverse Reaction, Unknown, 09/25/17) Reported Meds & Prescriptions Reported Meds & Active Scripts Active Lantus Inj (Insulin Glargine) 1,000 Unit/10 Ml Vial 36 Units SQ HS Norvasc (Amlodipine Besylate) 10 Mg Tab 10 Mg PO DAILY Ambien (Zolpidem Tartrate) 5 Mg Tab 5 Mg PO HS PRN Hydrochlorothiazide 25 Mg Tab 25 Mg PO DAILY Effexor XR 24 HR (Venlafaxine HCl) 37.5 Mg Cap 37.5 Mg PO DAILY Hydrocodone-Acetamin 7.5-325 (Hydrocodone/Acetaminophen) 7.5 Mg-325 Mg Tablet 1 Tab PO Q6H PRN Metformin (Metformin HCl) 1,000 Mg Tab 1,000 Mg PO BIDPC With meals Lisinopril 5 Mg Tab 5 Mg PO DAILY Glipizide 5 Mg Tab 5 Mg PO BIDAC Take 30 minutes before a meal Review of Systems Except as stated in HPI: all other systems reviewed are Neg Physical Exam Narrative GENERAL: Well-developed well-nourished in no obvious distress SKIN: Focused skin assessment hot/dry. HEAD: Atraumatic. Normocephalic. EYES: Pupils equal and round. No scleral icterus. No injection or drainage. ENT: No nasal bleeding or discharge. Mucous membranes pink and dry. NECK: Trachea midline. No JVD. CARDIOVASCULAR: Regular rate and rhythm. No murmur appreciated. RESPIRATORY: No accessory muscle use. Clear to auscultation. Breath sounds equal bilaterally. GASTROINTESTINAL: Abdomen soft, non-tender, nondistended. Hepatic and splenic margins not palpable. Minimally tender to palpation without any rebound or percussive tenderness. MUSCULOSKELETAL: No obvious deformities. No clubbing. No cyanosis. No edema. NEUROLOGICAL: Awake and alert. No obvious cranial nerve deficits. Motor grossly within normal limits. Normal speech. PSYCHIATRIC: Appropriate mood and affect; insight and judgment normal. Data Data Last Documented VS Vital Signs Date Time Temp Pulse Resp B/P (MAP) Pulse Ox O2 Delivery O2 Flow Rate FiO2 09/25/17 18:53 97 Room Air 09/25/17 18:24 101.0 124 19 Orders Orders Sepsis Workup Initiated (09/25/17 ) Electrocardiogram (09/25/17 18:32) Complete Blood Count With Diff (09/25/17 18:32) Comprehensive Metabolic Panel (09/25/17 18:32) Prothrombin Time / Inr (Pt) (09/25/17 18:32) Act Partial Throm Time (Ptt) (09/25/17 18:32) Lactic Acid Sepsis Protocol (09/25/17 18:32) Magnesium (Mg) (09/25/17 18:32) Phosphorus (Po4) (09/25/17 18:32) Lipase (09/25/17 18:32) Ckmb (Isoenzyme) Profile (09/25/17 18:32) Troponin I (09/25/17 18:32) Urinalysis - C+S If Indicated (09/25/17 18:32) Blood Culture (09/25/17 18:32) Chest, Single Ap (09/25/17 18:32) Ecg Monitoring (09/25/17 18:32) Iv Access Insert/Monitor (09/25/17 18:32) Oximetry (09/25/17 18:32) Oxygen Administration (09/25/17 18:32) Ct Abd/Pel W Iv Contrast(Rout) (09/25/17 ) Acetamin-Hydrocod 325-5 Mg ([place] 5-325 (09/25/17 18:45) Sodium Chlor 0.9% 1000 Ml Inj (Ns 1000 M (09/25/17 18:45) Vancomycin Inj (Vancomycin Inj) (09/25/17 18:45) Piperacil-Tazo 4.5 Gm Premix (Zosyn 4.5 (09/25/17 18:45) Labs Laboratory Tests Test 09/25/17 18:45 White Blood Count 14.3 TH/MM3 Red Blood Count 4.50 MIL/MM3 Hemoglobin 9.7 GM/DL Hematocrit 30.6 % Mean Corpuscular Volume 68.1 FL Mean Corpuscular Hemoglobin 21.6 PG Mean Corpuscular Hemoglobin Concent 31.8 % Red Cell Distribution Width 15.6 % Platelet Count 274 TH/MM3 Mean Platelet Volume 8.9 FL Neutrophils (%) (Auto) 79.6 % Lymphocytes (%) (Auto) 7.6 % Monocytes (%) (Auto) 12.3 % Eosinophils (%) (Auto) 0.1 % Basophils (%) (Auto) 0.4 % Neutrophils # (Auto) 11.4 TH/MM3 Lymphocytes # (Auto) 1.1 TH/MM3 Monocytes # (Auto) 1.8 TH/MM3 Eosinophils # (Auto) 0.0 TH/MM3 Basophils # (Auto) 0.1 TH/MM3 CBC Comment DIFF FINAL Differential Comment Prothrombin Time 11.2 SEC Prothromb Time International Ratio 1.1 RATIO Activated Partial Thromboplast Time 31.1 SEC Blood Urea Nitrogen 25 MG/DL Creatinine 2.32 MG/DL Random Glucose 211 MG/DL Total Protein 7.8 GM/DL Albumin 2.6 GM/DL Calcium Level 9.1 MG/DL Phosphorus Level 3.6 MG/DL Magnesium Level 1.9 MG/DL Alkaline Phosphatase 241 U/L Aspartate Amino Transf (AST/SGOT) 18 U/L Alanine Aminotransferase (ALT/SGPT) 15 U/L Total Bilirubin 1.7 MG/DL Sodium Level 129 MEQ/L Potassium Level 3.8 MEQ/L Chloride Level 91 MEQ/L Carbon Dioxide Level 26.3 MEQ/L Anion Gap 12 MEQ/L Estimat Glomerular Filtration Rate 26 ML/MIN Lactic Acid Level 2.3 mmol/L Total Creatine Kinase 40 U/L Troponin I LESS THAN 0.02 NG/ML Lipase 34 U/L [facility] Medical Decision Making Medical Screen Exam Complete: Yes Emergency Medical Condition: Yes Differential Diagnosis Sepsis, UTI, constipation, urinary retention Narrative Course Patient room to the emergency department, initial laboratory workup started, liter normal saline, she is already been on Cipro for urinary tract infection and will be placed on vancomycin and Zosyn while her workup is progressing. Patient was discussed with Dr. Shah [id number] shift change to follow-up the workup and disposition appropriately Hayder Andujar MD Sep 25, 2017 18:56
[2017-09-25 19:18] LABS: AUTOMATED NEUTROPHIL # 11.4 TH/MM3 (1.8-7.7); BASOPHIL # 0.1 TH/MM3 (0-0.2); BASOPHIL % 0.4 % (0.0-2.0); EOSINOPHIL % 0.1 % (0.0-4.0); HEMATOCRIT 30.6 % (35.0-46.0); HEMOGLOBIN 9.7 GM/DL (11.6-15.3); LYMPH % 7.6 % (9.0-44.0); LYMPHOCYTE # 1.1 TH/MM3 (1.0-4.8); MEAN CELL VOLUME 68.1 FL (80.0-100.0); MEAN CORPUSCULAR HEMOGLOBIN 21.6 PG (27.0-34.0); MEAN CORPUSCULAR HGB CONC 31.8 % (32.0-36.0); MEAN PLATELET VOLUME 8.9 FL (7.0-11.0); MONO % 12.3 % (0.0-8.0); MONOCYTE # 1.8 TH/MM3 (0-0.9); NEUT % 79.6 % (16.0-70.0); PLATELET COUNT 274 TH/MM3 (150-450); RED CELL DISTRIBUTION WIDTH 15.6 % (11.6-17.2); WHITE BLOOD COUNT 14.3 TH/MM3 (4.0-11.0)
--- NOTE | 2017-09-25 19:18 | PD ---
Data Data Last Documented VS Vital Signs Date Time Temp Pulse Resp B/P (MAP) Pulse Ox O2 Delivery O2 Flow Rate FiO2 09/25/17 19:44 100.4 114 16 124/67 (86) 97 Room Air Orders Orders Sepsis Workup Initiated (09/25/17 ) Electrocardiogram (09/25/17 18:32) Complete Blood Count With Diff (09/25/17 18:32) Comprehensive Metabolic Panel (09/25/17 18:32) Prothrombin Time / Inr (Pt) (09/25/17 18:32) Act Partial Throm Time (Ptt) (09/25/17 18:32) Lactic Acid Sepsis Protocol (09/25/17 18:32) Magnesium (Mg) (09/25/17 18:32) Phosphorus (Po4) (09/25/17 18:32) Lipase (09/25/17 18:32) Ckmb (Isoenzyme) Profile (09/25/17 18:32) Troponin I (09/25/17 18:32) Urinalysis - C+S If Indicated (09/25/17 18:32) Blood Culture (09/25/17 18:32) Chest, Single Ap (09/25/17 18:32) Ecg Monitoring (09/25/17 18:32) Iv Access Insert/Monitor (09/25/17 18:32) Oximetry (09/25/17 18:32) Oxygen Administration (09/25/17 18:32) Acetamin-Hydrocod 325-5 Mg ([place] 5-325 (09/25/17 18:45) Sodium Chlor 0.9% 1000 Ml Inj (Ns 1000 M (09/25/17 18:45) Vancomycin Inj (Vancomycin Inj) (09/25/17 18:45) Piperacil-Tazo 4.5 Gm Premix (Zosyn 4.5 (09/25/17 18:45) Ct Abd/Pel W/O Iv Contrast (09/25/17 ) Urinary Catheter Insert/Apply (09/25/17 20:13) Sodium Chlorid 0.9% 500 Ml Inj (Ns 500 M (09/25/17 20:30) Admit Order (Ed Use Only) (09/25/17 20:56) Labs Laboratory Tests Test 09/25/17 18:45 White Blood Count 14.3 TH/MM3 Red Blood Count 4.50 MIL/MM3 Hemoglobin 9.7 GM/DL Hematocrit 30.6 % Mean Corpuscular Volume 68.1 FL Mean Corpuscular Hemoglobin 21.6 PG Mean Corpuscular Hemoglobin Concent 31.8 % Red Cell Distribution Width 15.6 % Platelet Count 274 TH/MM3 Mean Platelet Volume 8.9 FL Neutrophils (%) (Auto) 79.6 % Lymphocytes (%) (Auto) 7.6 % Monocytes (%) (Auto) 12.3 % Eosinophils (%) (Auto) 0.1 % Basophils (%) (Auto) 0.4 % Neutrophils # (Auto) 11.4 TH/MM3 Lymphocytes # (Auto) 1.1 TH/MM3 Monocytes # (Auto) 1.8 TH/MM3 Eosinophils # (Auto) 0.0 TH/MM3 Basophils # (Auto) 0.1 TH/MM3 CBC Comment DIFF FINAL Differential Comment Prothrombin Time 11.2 SEC Prothromb Time International Ratio 1.1 RATIO Activated Partial Thromboplast Time 31.1 SEC Blood Urea Nitrogen 25 MG/DL Creatinine 2.32 MG/DL Random Glucose 211 MG/DL Total Protein 7.8 GM/DL Albumin 2.6 GM/DL Calcium Level 9.1 MG/DL Phosphorus Level 3.6 MG/DL Magnesium Level 1.9 MG/DL Alkaline Phosphatase 241 U/L Aspartate Amino Transf (AST/SGOT) 18 U/L Alanine Aminotransferase (ALT/SGPT) 15 U/L Total Bilirubin 1.7 MG/DL Sodium Level 129 MEQ/L Potassium Level 3.8 MEQ/L Chloride Level 91 MEQ/L Carbon Dioxide Level 26.3 MEQ/L Anion Gap 12 MEQ/L Estimat Glomerular Filtration Rate 26 ML/MIN Lactic Acid Level 2.3 mmol/L Total Creatine Kinase 40 U/L Troponin I LESS THAN 0.02 NG/ML Lipase 34 U/L [facility] Medical Record Reviewed: Yes Supervised Visit with EULALIA: No Interpretation(s) Last Impressions Chest X-Ray 09/25/17 1832 Signed Impressions: Service Date/Time: Monday, September 25, 2017 18:44 - CONCLUSION: No acute disease. Sukhwinder Freeman MD Abdomen/Pelvis CT 09/25/17 0000 Signed Impressions: Service Date/Time: Monday, September 25, 2017 20:04 - CONCLUSION: 1. Bilateral hydronephrosis being worse on the right with hydroureter and distention of the urinary bladder. A bladder outlet obstruction needs to be considered. 2. Left pelvic/adnexal mass. It has a lobulated appearance with cystic and solid components concerning for ovarian neoplasm. 3. Large amount of stool the rectum. Sukhwinder Freeman MD Narrative Course During the course of the patient's emergency department visit, the patient's history, examination, and differential diagnosis were reviewed with the patient. The patient was placed on a front desk monitor with oximetry and frequent blood pressure monitoring. The patient had IV access obtained and blood work sent for analysis. The patient's case was checked out to me by Dr. Andujar. Please see his complete history and physical. The patient's case was checked out to me at the conclusion of his shift. The patient reportedly presented with abdominal pain, tachycardic and febrile with a recent admission for obstructive uropathy. The patient had an EKG done on arrival that shows a sinus tachycardia rate of 116, QRS duration 88 ms, QTC 398 ms without any acute ST segment elevation. T waves are inverted in V1. The patient was initially provided NS 1L IVF bolus, vancomycin 1 g IV, Zosyn IV , hydrocodone for pain. The patient's laboratory studies were reviewed and remarkable for a white count of 14.3, hemoglobin 9.7, platelets 274 with 79.6 neutrophils, 12.3 monocytes. CMP is remarkable for sodium of 129 which is decreased from 141 on September 15, BUN is elevated at 25, creatinine 2.32 which is compared to 10 and 1.15 respectively on September 15, glucose 211, total bilirubin 1.7, alk phos 241, cardiac enzymes within normal limits, lipase 34, lactic acid 2.3. Sheikh catheter will be placed to gravity. The patient will be given a second 500 mL IV fluid bolus. The patient had 2 L of urine out put with Sheikh catheter placement. Radiology studies were reviewed and remarkable for a chest x-ray that shows no acute cardiopulmonary disease. CT scan of the abdomen and pelvis showed bilateral hydronephrosis being worse on the right with hydroureter and distention of the urinary bladder. A bladder outlet obstruction needs to be considered. Left pelvic/adnexal mass it has a lobulated appearance with cystic and solid components concerning for ovarian neoplasm, large amount of stool in the rectum. This CT scan was read after the patient already had a Sheikh catheter in place. The patient's results were discussed with the patient, including the plan of care. I explained that further testing and/ or monitoring is indicated based on the patient's history, examination, and/ or laboratory findings. Therefore, I recommended admission for additional evaluation. The patient expressed understanding and was agreeable with this plan. The patient was admitted to the hospital in guarded condition and sent to a bed under the care of the [facility] service. Sepsis Criteria SIRS Criteria (2 or more): Temp > 100.9 or < 96.8, Heart rate over 90, WBC > 25403, < 4000 or > 10% bands Sepsis Criteria (SIRS+source): Infect source susp/known Severe Sepsis (+one): Lactate >2 Criteria Outcome: Meets SIRS criteria, Meets sepsis criteria, Meets severe sepsis criteria Physician Communication Physician Communication The patient's case including history, pertinent physical examination findings, and laboratory studies were discussed with Dr. Weiss. It was agreed that the patient would be admitted to the [facility] service. Diagnosis Primary Impression: Urinary retention Additional Impressions: Adnexal mass Sepsis Qualified Codes: A41.9 - Sepsis, unspecified organism Constipation Qualified Codes: K59.00 - Constipation, unspecified Admitting Information Admitting Physician Requests: Admit Eliane Shah MD Sep 25, 2017 19:18
[2017-09-25 19:25] LABS: INTERNATIONAL NORMALIZED RATIO 1.1 RATIO; PROTHROMBIN TIME - PATIENT 11.2 SEC (9.8-11.6)
[2017-09-25 19:29] LABS: ALT (GPT) 15 U/L (10-53)
[2017-09-25 19:32] LABS: ALKALINE PHOSPHATASE 241 U/L (45-117); PHOSPHORUS 3.6 MG/DL (2.5-4.9); TOTAL BILIRUBIN ADULT 1.7 MG/DL (0.2-1.0); TOTAL PROTEIN 7.8 GM/DL (6.4-8.2); TROPONIN I LESS THAN 0.02 NG/ML (0.02-0.05)
[2017-09-25 19:36] LABS: ALBUMIN 2.6 GM/DL (3.4-5.0); AST (GOT) 18 U/L (15-37); BICARBONATE 26.3 MEQ/L (21.0-32.0); BLOOD UREA NITROGEN 25 MG/DL (7-18); CALCIUM 9.1 MG/DL (8.5-10.1); CHLORIDE 91 MEQ/L (98-107); CREATININE 2.32 MG/DL (0.50-1.00); GLOMERULAR FILTRATION RATE 26 ML/MIN (>89); GLUCOSE,RANDOM 211 MG/DL (74-106); LACTIC ACID SEPSIS PROTOCOL 2.3 mmol/L (0.4-2.0); MAGNESIUM 1.9 MG/DL (1.5-2.5); SODIUM (NA) 129 MEQ/L (136-145)
--- NOTE | 2017-09-25 19:36 | RADRPT ---
EXAM DATE/TIME: 09/25/2017 18:44 [facility] COMPARISON: No previous studies available for comparison. INDICATIONS : Weakness and fever. MEDICAL HISTORY : Hypertension. Ulcer. Diabetes. SURGICAL HISTORY : Right ankel surgery. Left knee surgery. ENCOUNTER: Initial ACUITY: 2 days PAIN SCORE: 0/10 LOCATION: Bilateral chest FINDINGS: A single view of the chest demonstrates the lungs to be symmetrically aerated without evidence of mas s, infiltrate or effusion. The cardiomediastinal contours are unremarkable. Osseous structures are intact. CONCLUSION: No acute disease. Sukhwinder Freeman MD on September 25, 2017 at 19:34 Board Certified Radiologist. This report was verified electronically.
[2017-09-25] MEDS ORDERED: SODIUM CHLORID 0.9% 500 ML INJ 500 ML IV ONE (20:30)
--- NOTE | 2017-09-25 21:10 | RADRPT ---
EXAM DATE/TIME: 09/25/2017 20:04 [facility] COMPARISON: CT ABDOMEN & PELVIS W CONTRAST, September 05, 2016, 2:34. CT ABDOMEN & PELVIS W/O CONTRAST, September 08 18, 3:23. INDICATIONS : Abdominal pain, dizziness, fever ORAL CONTRAST: No oral contrast ingested. RADIATION DOSE: 13.36 CTDIvol (mGy) MEDICAL HISTORY : Hypertension. Ulcers. Peripheral neuropothy, diabetes SURGICAL HISTORY : None. ENCOUNTER: Initial ACUITY: 3 weeks PAIN SCALE: 10/10 LOCATION: Bilateral Abdomen TECHNIQUE: Volumetric scanning of the abdomen and pelvis was performed. Using automated exposure control and ad justment of the mA and/or kV according to patient size, radiation dose was kept as low as reasonably achievable to obtain optimal diagnostic quality images. DICOM format image data is available electro nically for review and comparison. FINDINGS: LOWER LUNGS: The visualized lower lungs are clear. LIVER: Homogeneous density without lesion. There is no dilation of the biliary tree. No calcified gallston es. SPLEEN: Normal size without lesion. PANCREAS: Within normal limits. KIDNEYS: There is bilateral hydronephrosis being worse on the right. There severe on the right and moderate on the left. There is dilatation of the ureters down to the level of the bladder bilaterally. Stones ar e not seen. There are calcifications in the pelvis which appear outside the urinary system. The urina ry bladder distended extending into the lower abdomen. ADRENAL GLANDS: Within normal limits. VASCULAR: There is no aortic aneurysm. Scattered arterial calcifications are seen. BOWEL/MESENTERY: There is a large amount of stool seen in the rectum. There is a mild to moderate amount of stool seen throughout the rest of the colon. Dilated ABDOMINAL WALL: Within normal limits. RETROPERITONEUM: There is no lymphadenopathy. BLADDER: No wall thickening or mass. REPRODUCTIVE: There is a left adnexal and pelvic mass extending into the lower abdomen. This measures approximately 8 cm in AP dimension, 12.3 cm in height and 5.4 cm in transverse dimension. This does appear to be c ystic and solid. This is thought to likely be separate from bowel. This study was performed without i ntervenous contrast. INGUINAL: There is no lymphadenopathy or hernia. MUSCULOSKELETAL: There is degenerative change in the lower lumbar spine. CONCLUSION: 1. Bilateral hydronephrosis being worse on the right with hydroureter and distention of the urinary b ladder. A bladder outlet obstruction needs to be considered. 2. Left pelvic/adnexal mass. It has a lobulated appearance with cystic and solid components concernin g for ovarian neoplasm. 3. Large amount of stool the rectum. Sukhwinder Freeman MD on September 25, 2017 at 21:02 Board Certified Radiologist. This report was verified electronically.
[2017-09-25 21:24] LABS: AMORPHOUS SEDIMENT, URINE RARE; BACTERIA, URINE FEW /hpf; BILIRUBIN, URINE NEG (NEG); BLOOD, URINE TRACE (NEG); GLUCOSE,URINE NEG (NEG); KETONE, URINE NEG (NEG); MUCUS URINE FEW /lpf (OCC); NITRITE,URINE NEG (NEG); PH, URINE 5.5 (5.0-8.5); SQUAMOUS EPITHELIAL CELL URINE <1 /hpf (0-5); URINE COLOR YELLOW (YELLW/STRAW); URINE LEUKOCYTE ESTERASE LARGE (NEG)
[2017-09-25] MEDS ORDERED: ONDANSETRON HCL 4 MG/2 ML VIAL IVP PRN (21:30)
[2017-09-25] MEDS ORDERED: NALOXONE HCL 0.4 MG/ML AMP IV PUSH PRN (21:30)
[2017-09-25] MEDS ORDERED: BISACODYL 10 MG SUPP RECTAL PRN (21:30)
[2017-09-25] MEDS ORDERED: SENNOSIDES 8.6 MG TAB PO PRN (21:30)
[2017-09-25] MEDS ORDERED: LACTULOSE SYRUP 20 GM/30 ML CUP PO PRN (21:30)
[2017-09-25] MEDS ORDERED: Vancomycin Consult Pharmacy 1 EA OTHER SCH (21:30)
[2017-09-25] MEDS ORDERED: DEXTROSE 50% IN WATER 50 ML VIAL(D50) IV PUSH PRN (21:30)
[2017-09-25] MEDS ORDERED: GLUCAGON 1 MG/ML VIAL OTHER PRN (21:30)
[2017-09-25] MEDS ORDERED: ACETAMINOPHEN 325 MG TAB PO PRN (21:30)
[2017-09-25] MEDS ORDERED: SODIUM CHLORIDE 0.9% FLUSH 10 ML FLUSH IV FLUSH PRN (21:30)
--- NOTE | 2017-09-25 21:36 | HHI.HP ---
HPI [facility] Primary Care Physician No Primary Care Physician Admission Diagnosis Sepsis, Urinary retention, Acute renal failure Diagnoses: Travel History International Travel<30 Days: No Contact w/Intl Traveler <30 Da: No Traveled to Known Affected Are: No History of Present Illness D7-year-old female with past medical history significant for diabetes mellitus, hypertension, hyperlipidemia history of urinary retention and recent hospitalization and history of constipation presents to the emergency department at the [facility] where she was seen today. The patient reportedly was febrile when she was seen in clinic. She reports that she has significant constipation with her last bowel movement being yesterday however also reports diarrhea approximately 3 times per day including yesterday. The patient reports that she has been able to urinate intermittently however upon arrival to the emergency department was unable to do so and had lower pelvic pain consistent with her previous urinary retention. She also complains of left-sided flank pain. The patient denies any subjective fever/chills. No shortness of breath or chest pain. No nausea/ vomiting. No lateralizing signs/symptoms. Review of Systems Except as stated in HPI: all other systems reviewed are Neg Past Family Social History Past Medical History Diabetes mellitus Hypertension Hyperlipidemia History of urinary retention History of constipation Past Surgical History Right foot Left knee Reported Medications Reported Meds & Active Scripts Active Lantus Inj (Insulin Glargine) 1,000 Unit/10 Ml Vial 36 Units SQ HS Norvasc (Amlodipine Besylate) 10 Mg Tab 10 Mg PO DAILY Ambien (Zolpidem Tartrate) 5 Mg Tab 5 Mg PO HS PRN Hydrochlorothiazide 25 Mg Tab 25 Mg PO DAILY Effexor XR 24 HR (Venlafaxine HCl) 37.5 Mg Cap 37.5 Mg PO DAILY Hydrocodone-Acetamin 7.5-325 (Hydrocodone/Acetaminophen) 7.5 Mg-325 Mg Tablet 1 Tab PO Q6H PRN Metformin (Metformin HCl) 1,000 Mg Tab 1,000 Mg PO BIDPC With meals Lisinopril 5 Mg Tab 5 Mg PO DAILY Glipizide 5 Mg Tab 5 Mg PO BIDAC Take 30 minutes before a meal Allergies: Coded Allergies: No Known Allergies (Verified Adverse Reaction, Unknown, 09/25/17) Family History Negative for DM/CAD Social History Looks approximately 1 cigarette per day. Denies alcohol and illicit drugs. Physical Exam Vital Signs Vital Signs Date Time Temp Pulse Resp B/P (MAP) Pulse Ox O2 Delivery O2 Flow Rate FiO2 09/25/17 19:44 100.4 114 16 124/67 (86) 97 Room Air 09/25/17 18:53 97 Room Air 09/25/17 18:53 100 Room Air 09/25/17 18:24 101.0 124 19 107/63 (78) 98 Room Air 09/25/17 18:13 102.0 131 20 141/67 (91) 99 Physical Exam GENERAL: female lying in bed SKIN: No rashes, ecchymoses or lesions. Cool and dry. Stage I sacral pressure ulcer HEAD: Atraumatic. Normocephalic. No temporal or scalp tenderness. EYES: Pupils equal round and reactive. Extraocular motions intact. No scleral icterus. No injection or drainage. ENT: Nose without bleeding, purulent drainage or septal hematoma. Throat without erythema, tonsillar hypertrophy or exudate. Uvula midline. Airway patent. NECK: Trachea midline. No JVD or lymphadenopathy. Supple, nontender, no meningeal signs. CARDIOVASCULAR: Regular rate and rhythm without murmurs, gallops, or rubs. RESPIRATORY: Clear to auscultation. Breath sounds equal bilaterally. No wheezes , rales, or rhonchi. GASTROINTESTINAL: Abdomen soft, non-tender, nondistended. No hepato-splenomegaly , or palpable masses. No guarding. MUSCULOSKELETAL: Extremities without clubbing, cyanosis, or edema. No joint tenderness, effusion, or edema noted. No calf tenderness. NEUROLOGICAL: Awake and alert. Cranial nerves II through XII intact. Motor and sensory grossly within normal limits. Normal speech. Laboratory Laboratory Tests Test 09/25/17 18:45 09/25/17 21:00 White Blood Count 14.3 Red Blood Count 4.50 Hemoglobin 9.7 Hematocrit 30.6 Mean Corpuscular Volume 68.1 Mean Corpuscular Hemoglobin 21.6 Mean Corpuscular Hemoglobin Concent 31.8 Red Cell Distribution Width 15.6 Platelet Count 274 Mean Platelet Volume 8.9 Neutrophils (%) (Auto) 79.6 Lymphocytes (%) (Auto) 7.6 Monocytes (%) (Auto) 12.3 Eosinophils (%) (Auto) 0.1 Basophils (%) (Auto) 0.4 Neutrophils # (Auto) 11.4 Lymphocytes # (Auto) 1.1 Monocytes # (Auto) 1.8 Eosinophils # (Auto) 0.0 Basophils # (Auto) 0.1 CBC Comment DIFF FINAL Differential Comment Prothrombin Time 11.2 Prothromb Time International Ratio 1.1 Activated Partial Thromboplast Time 31.1 Blood Urea Nitrogen 25 Creatinine 2.32 Random Glucose 211 Total Protein 7.8 Albumin 2.6 Calcium Level 9.1 Phosphorus Level 3.6 Magnesium Level 1.9 Alkaline Phosphatase 241 Aspartate Amino Transf (AST/SGOT) 18 Alanine Aminotransferase (ALT/SGPT) 15 Total Bilirubin 1.7 Sodium Level 129 Potassium Level 3.8 Chloride Level 91 Carbon Dioxide Level 26.3 Anion Gap 12 Estimat Glomerular Filtration Rate 26 Lactic Acid Level 2.3 Total Creatine Kinase 40 Troponin I LESS THAN 0.02 Lipase 34 Urine Color YELLOW Urine Turbidity HAZY Urine pH 5.5 Urine Specific [place] 1.006 Urine Protein TRACE Urine Glucose (UA) NEG Urine Ketones NEG Urine Occult Blood TRACE Urine Nitrite NEG Urine Bilirubin NEG Urine Urobilinogen LESS THAN 2.0 Urine Leukocyte Esterase LARGE Urine RBC 7 Urine WBC 30 Urine Squamous Epithelial Cells <1 Urine Amorphous Sediment RARE Urine Bacteria FEW Urine Mucus FEW Microscopic Urinalysis Comment CATH-CULTURE IND Date/Time Source Procedure Growth Status 09/25/17 18:45 Blood Peripheral Aerobic Blood Culture Pending Received 09/25/17 18:45 Blood Peripheral Anaerobic Blood Culture Pending Received 09/25/17 21:00 Urine Catheterized Urine Urine Culture Pending Received Result Diagram: 09/25/[id number] Caprini VTE Risk Assessment Caprini VTE Risk Assessment: No/Low Risk (score <= 1) Caprini Risk Assessment Model Point Value = 1 Point Value = 2 Point Value = 3 Point Value = 5 Age 41-60 Minor surgery BMI > 25 kg/m2 Swollen legs Varicose veins or History of unexplained or recurrent spontaneous Oral contraceptives or hormone replacement Sepsis (< 1 month) Serious lung disease, including pneumonia (< 1 month) Abnormal pulmonary function Acute myocardial infarction Congestive heart failure (< 1 month) History of inflammatory bowel disease Medical patient at bed rest Age 61-74 Arthroscopic surgery Major open surgery (> 45 min) Laparoscopic surgery (> 45 min) Malignancy Confined to bed (> 72 hours) Immobilizing plaster cast Central venous access Age >= 75 History of VTE Family history of VTE Factor V Leiden Prothrombin [id number] Lupus anticoagulant Anticardiolipin antibodies Elevated serum homocysteine Heparin-induced thrombocytopenia Other congenital or acquired thrombophilia Stroke (< 1 month) Elective arthroplasty Hip, pelvis, or leg fracture Acute spinal cord injury (< 1 month) Prophylaxis Regimen Total Risk Factor Score Risk Level Prophylaxis Regimen 0-1 Low Early ambulation 2 Moderate Order ONE of the following: *Sequential Compression Device (SCD) *Heparin 5000 units SQ BID 3-4 Higher Order ONE of the following medications: *Heparin 5000 units SQ TID *Enoxaparin/Lovenox 40 mg SQ daily (WT < 150 kg, CrCl > 30 mL/min) *Enoxaparin/Lovenox 30 mg SQ daily (WT < 150 kg, CrCl > 10-29 mL/min) *Enoxaparin/Lovenox 30 mg SQ BID (WT < 150 kg, CrCl > 30 mL/min) AND/OR *Sequential Compression Device (SCD) 5 or more Highest Order ONE of the following medications: *Heparin 5000 units SQ TID (Preferred with Epidurals) *Enoxaparin/Lovenox 40 mg SQ daily (WT < 150 kg, CrCl > 30 mL/min) *Enoxaparin/Lovenox 30 mg SQ daily (WT < 150 kg, CrCl > 10-29 mL/min) *Enoxaparin/Lovenox 30 mg SQ BID (WT < 150 kg, CrCl > 30 mL/min) AND *Sequential Compression Device (SCD) Assessment and Plan Assessment and Plan Assessment/plan: 1. Sepsis Patient febrile, tachycardic with elevated lactic acid and leukocytosis Source unknown at this time Chest x-ray negative for acute disease, personally reviewed CT of the abdomen and pelvis as below UA pending Blood cultures pending Vancomycin/Zosyn IV fluids Repeat lactic acid pending Tailor antibiotics once cultures result 2. Urinary retention/hydronephrosis/hydroureter CT of the abdomen and pelvis significant for bilateral hydronephrosis right greater than left with hydroureter and distention of the urinary bladder; and sent for bladder obstruction Sheikh placed with 2 L of urine output Patient recently hospitalized and evaluated for similar, thought at the time was that this was secondary to constipation Urology consulted, appreciate recommendations 3. Acute kidney injury BUN/creatinine 25/2.32, baseline 1.15 Likely secondary to urinary retention IV fluid hydration Continue Sheikh catheter Monitor renal function If renal function does not improve consider nephrology consult 4. Adnexal mass CT of the abdomen/pelvis significant for a left pelvic/adnexal mass that has a lobulated appearance was cystic and solid components concerning for ovarian neoplasm Oncology consulted, appreciate recommendations CA 125 pending 5. Diabetes mellitus Holding home Lantus/metformin Sliding scale insulin Monitor blood glucose Continue Lantus if patient hyperglycemic 6. Hypertension/hyperlipidemia Continue home medications 7. Stage I pressure ulcer Patient was stage I sacral pressure ulcer Wound care consulted, appreciate assistance FEN Heart healthy diabetic diet Electrolytes: monitor and replete prn NS at 100 cc/hr SCDs Physician Certification 2 Midnight Certification Type: Admission for Inpatient Services Order for Inpatient Services The services are ordered in accordance with Medicare regulations or non- Medicare payer requirements, as applicable. In the case of services not specified as inpatient-only, they are appropriately provided as inpatient services in accordance with the 2-midnight benchmark. Estimated LOS (days): 2 2 days is the estimated time the patient will need to remain in the hospital, assuming treatment plan goals are met and no additional complications. Post-Hospital Plan: Not yet determined Gretchen Weiss MD Sep 25, 2017 21:36
[2017-09-25] MEDS ORDERED: ZOLPIDEM TARTRATE 5 MG TAB PO PRN (21:45)
[2017-09-25] MEDS ORDERED: VANCOMYCIN 1,000 MG/NS 250 ML IV ONE ×2 (22:00)
--- NOTE | 2017-09-25 22:25 | EKG ---
Date Performed: 09/25/2017 Time Performed: 19:08:25 PTAGE: 57 years EKG: SINUS TACHYCARDIA LEFT ATRIAL ENLARGEMENT ABNORMAL ECG PREVIOUS TRACING : 09/11/2017 09.29 Since the previous tracing, no significant change noted DOCTOR: Mane Traore Interpretating Date/Time 09/25/2017 22:24:26
[2017-09-25] MEDS: SODIUM CHLOR 0.9% 1000 ML INJ 1,000 ML IV SCH (22:49)
[2017-09-25] MEDS: INSULIN ASPART SUPPLEMENTAL SCALE SQ SCH (22:49)
[2017-09-26] VITALS (20 sets, daily range): BP systolic 101–142; BP diastolic 64–78; PULSE 102–142; RESP 16–18; TEMP 99.1–102.8; O2SAT 91–97
[2017-09-26] MEDS: PIPERACIL-TAZO 3.375 GM PREMIX 50 ML IV SCH ×4 (01:33→18:26)
[2017-09-26] MEDS: MORPHINE SULFATE 4 MG/ML INJ IV PUSH PRN ×6 (01:56→21:44)
[2017-09-26] MEDS ORDERED: VANCOMYCIN INJ 1,000 MG in SODIUM CHLOR 0.9% 250 ML INJ 250 ML IV SCH (06:45)
[2017-09-26 07:45] LABS: AUTOMATED NEUTROPHIL # 11.1 TH/MM3 (1.8-7.7); BASOPHIL % 0.3 % (0.0-2.0); EOSINOPHIL % 0.3 % (0.0-4.0); HEMATOCRIT 29.3 % (35.0-46.0); HEMOGLOBIN 9.3 GM/DL (11.6-15.3); LYMPH % 4.2 % (9.0-44.0); LYMPHOCYTE # 0.5 TH/MM3 (1.0-4.8); MEAN CELL VOLUME 68.8 FL (80.0-100.0); MEAN CORPUSCULAR HEMOGLOBIN 21.9 PG (27.0-34.0); MEAN CORPUSCULAR HGB CONC 31.9 % (32.0-36.0); MEAN PLATELET VOLUME 8.3 FL (7.0-11.0); MONO % 8.4 % (0.0-8.0); MONOCYTE # 1.1 TH/MM3 (0-0.9); NEUT % 86.8 % (16.0-70.0); PLATELET COUNT 283 TH/MM3 (150-450); RED BLOOD COUNT 4.26 MIL/MM3 (4.00-5.30); RED CELL DISTRIBUTION WIDTH 15.6 % (11.6-17.2); WHITE BLOOD COUNT 12.8 TH/MM3 (4.0-11.0)
[2017-09-26] MEDS: SODIUM CHLOR 0.9% 1000 ML INJ 1,000 ML IV SCH ×2 (08:00→21:34)
[2017-09-26] MEDS ORDERED: INSULIN ASPART SUPPLEMENTAL SCALE SQ SCH (08:00)
[2017-09-26] MEDS: INSULIN ASPART SUPPLEMENTAL SCALE SQ SCH ×4 (08:00→21:45)
[2017-09-26 08:12] LABS: BICARBONATE 25.9 MEQ/L (21.0-32.0); CALCIUM 8.7 MG/DL (8.5-10.1); CREATININE 1.64 MG/DL (0.50-1.00)
[2017-09-26] MEDS ORDERED: SOD PHOSPHATE/SOD BIPHOSPHATE (ADULT) ENEMA 133ML RECTAL PRN (09:00)
[2017-09-26] MEDS ORDERED: PEG (High)/E-LYTE SOLN 4000 ML BTL PO ONE (09:00)
[2017-09-26] MEDS: DOCUSATE SODIUM 50 MG/SENNA 8.6 MG TAB PO SCH ×2 (09:02→21:00)
[2017-09-26] MEDS: LISINOPRIL 5 MG TAB PO SCH (09:02)
[2017-09-26] MEDS: HYDROCHLOROTHIAZIDE 25 MG TAB PO SCH (09:03)
[2017-09-26] MEDS: SODIUM CHLORIDE 0.9% FLUSH 10 ML FLUSH IV FLUSH SCH ×2 (09:03→21:00)
[2017-09-26] MEDS: VENLAFAXINE HCL XR 37.5 MG CAP PO SCH (09:03)
--- NOTE | 2017-09-26 09:46 | MB ---
cc: Jose Guadalupe Hernandez DO DATE: 09/26/2017 DATE OF CONSULTATION: 09/26/2017. HISTORY OF PRESENT ILLNESS: Ms. Nathan is a 57-year-old female who was admitted with urinary retention and findings on CAT scan demonstrating bilateral hydroureteronephrosis. The patient had a Sheikh catheter inserted for approximately 6400 mL of clear urine in the emergency room. The patient states that she was admitted earlier in the month with the same problem. She also admits to a history of constipation which began in April and states she was admitted with urinary retention in May. On the CT exam on admission she was noted to have a large amount of stool in the rectum. This is most likely the cause of her constipation combined with her longstanding diabetes causing an atonic bladder as well as probable gastroparesis versus a slow bowel transit time. She does note occasional urinary tract infections. MEDICAL HISTORY: Includes diabetes, hypertension, hyperlipidemia, urinary retention and constipation. PAST MEDICAL SURGICAL HISTORY: Noted for lower extremity surgery on her right foot in her left knee. MEDICATIONS: Please refer to the chart. ALLERGIES: SHE HAS NO KNOWN DRUG ALLERGIES. FAMILY HISTORY: Negative. SOCIAL HISTORY: Smokes 1 cigarette a day. Denies alcohol or using drugs. REVIEW OF SYSTEMS: Denies abdominal pain. Admits to constipation. Denies fever or chills. Does have lower extremity peripheral neuropathy. Denies chest pain, shortness of breath. Notes abdominal pain on admission. Remaining review of systems were reviewed and were negative. PHYSICAL EXAMINATION: VITAL SIGNS TODAY: Temperature 100.2, heart rate 128, respiratory rate 18, 120/70s blood pressure. Pulse oximetry 96%. GENERAL: She is a well-developed, well-nourished, 57-year-old female in no acute distress. HEENT: Normocephalic, atraumatic. Pupils equal, round, regular and reactive to light. Extraocular movements intact. NECK: Supple. HEART: Heart rate is sinus tachycardia. LUNGS: Breath sounds are bilaterally. ABDOMEN: Soft, nontender, nondistended. 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 PELVIC: Exam shows no evidence of any cystocele or rectocele. EXTREMITIES: Show no cyanosis, clubbing, or edema. LABORATORY DATA: White count 12.8, hemoglobin 9.3, hematocrit 29.3, platelet count of 283. Sodium is 139, potassium 3.1, chloride 105, CO2 25.9, BUN of 18, creatinine 1.64, glucose of 250. Urinalysis shows 30 white cells and 7 red cells. Culture is currently pending. CT scan of the abdomen and pelvis demonstrates bilateral hydronephrosis with right hydroureter and distention of the bladder. Left pelvic adnexal mass, which is concerning for a cystic and solid ovarian neoplasm. Large amount of stool in the rectum. ASSESSMENT: A 57-year-old female with evidence of urinary retention, possibly due to either constipation or this large ovarian mass. RECOMMENDATIONS: Recommend treating constipation aggressively as this relieved her problems with voiding in the past. We will start with Fleet's enema and GoLYTELY. Maintain Sheikh catheter to continue with bladder decompression. Hydronephrosis should improve over time. Recommend [employer] CHAIN FEEDER consult for evaluation of pelvic mass. We will follow with you. Thank you for the consult and allowing me to participate in the care of this patient. DO NOEMY Sullivan/JESSICA , 09:29 AM , 09:45 AM
--- NOTE | 2017-09-26 12:48 | PD.WCN.NOT ---
Wound Consult Description: Wound consult ordered by Dr. Weiss for sacrum Communicated with: Malka Galeas, Recommendation: 1. Encourage patient to reposition every 2 hour for comfort and offloading. 2. Cleanse inner buttocks with normal saline pat dry. 3. Apply Calazime cream to inner buttocks BID or as needed for loose stool. Additional Information: Patient Was seen today on 2nd floor [facility] for wound assessment of sacrum.Patient alert and oriented x3 conversing with family at bedside upon writers arrival.Patient was able to reposition to right side independently.Buttocks visualized by casualty underwriter.Area of excoriation noted to Right inner buttocks measuring ~3.0cm x ~0.3cm Periwound blanchable.No drainage or odor noted.Cotton pad removed from under patient to reduce moisture/heat.Inner buttocks cleansed with normal saline pat dry ,Calazime cream applied to inner buttocks.Reinforced teaching to patient on repositioning every 2 hours patient demonstrated understanding using teach back method.Patient noted to have very long finger and toe nails.Patient would benefit from follow up with out patient podiatry. Gabbi Rivas [facility] Sep 26, 2017 12:48
--- NOTE | 2017-09-26 13:10 | HHI.PR ---
Subjective Remarks Patient reports left lower quadrant abdominal and left flank pain. No nausea or vomiting. Objective Vitals Vital Signs Date Time Temp Pulse Resp B/P (MAP) Pulse Ox O2 Delivery O2 Flow Rate FiO2 09/26/17 11:10 99.7 111 18 121/64 (83) 95 09/26/17 10:02 09/26/17 07:40 100.2 128 18 120/70 (87) 96 09/26/17 07:24 129 09/26/17 06:00 120 09/26/17 05:16 99.1 120 16 128/78 (95) 97 09/26/17 05:00 118 09/26/17 04:00 102 09/26/17 04:00 105 09/26/17 03:00 104 09/26/17 02:00 116 09/26/17 01:55 100.7 09/26/17 01:50 116 09/26/17 01:00 122 09/26/17 00:00 142 09/26/17 00:00 102.8 137 18 142/74 (96) 97 09/25/17 23:46 140 09/25/17 23:36 09/25/17 22:50 104 16 139/68 (91) 99 Room Air 09/25/17 21:53 99.0 104 17 124/59 (80) 100 Room Air 09/25/17 19:44 100.4 114 16 124/67 (86) 97 Room Air 09/25/17 18:53 97 Room Air 09/25/17 18:53 100 Room Air 09/25/17 18:24 101.0 124 19 107/63 (78) 98 Room Air 09/25/17 18:13 102.0 131 20 141/67 (91) 99 I/O 09/25/17 09/25/17 09/25/17 09/26/17 09/26/17 09/26/17 07:00 15:00 23:00 07:00 15:00 23:00 Intake Total 1850 ml 2490 ml 50 ml Output Total 2000 ml 4400 ml Balance -150 ml -1910 ml 50 ml Intake Oral 1540 ml IV Total 1850 ml 950 ml 50 ml Output Urine Total 2000 ml 4400 ml # Voids 0 Result Diagram: 09/26/1724 09/26/17723 Imaging Last Impressions Chest X-Ray 09/25/17 1832 Signed Impressions: Service Date/Time: Monday, September 25, 2017 18:44 - CONCLUSION: No acute disease. Sukhwinder Freeman MD Abdomen/Pelvis CT 09/25/17 0000 Signed Impressions: Service Date/Time: Monday, September 25, 2017 20:04 - CONCLUSION: 1. Bilateral hydronephrosis being worse on the right with hydroureter and distention of the urinary bladder. A bladder outlet obstruction needs to be considered. 2. Left pelvic/adnexal mass. It has a lobulated appearance with cystic and solid components concerning for ovarian neoplasm. 3. Large amount of stool the rectum. Sukhwinder Freeman MD Objective Remarks GENERAL: This is a well-nourished, well-developed patient, in no apparent distress. CARDIOVASCULAR: Normal rate and regular rhythm without murmurs, gallops, or rubs. RESPIRATORY: Good respiratory efforts. Breath sounds equal and clear to auscultation bilaterally. GASTROINTESTINAL: Abdomen soft, n mild tenderness mostly located on the left lower quadrant. Normal and active bowel sounds. MUSCULOSKELETAL: Extremities without cyanosis, or edema. NEURO: Alert & Oriented x4 to person, place, time, situation. Moves all ext x4 PSYCH: Appropriate mood and affect. A/P Assessment and Plan Severe sepsis Patient febrile, tachycardic with elevated lactic acid and leukocytosis E. coli UTI/E. coli bacteremia. Blood cultures pending Vancomycin/Zosyn Consult infectious disease Urinary retention/hydronephrosis/hydroureter CT of the abdomen and pelvis significant for bilateral hydronephrosis right greater than left with hydroureter and distention of the urinary bladder; and sent for bladder obstruction Sheikh placed with 2 L of urine output Patient recently hospitalized and evaluated for similar, thought at the time was that this was secondary to constipation Appreciate urology following who recommended treating constipation aggressively. Hypokalemia: - Replace and monitor. Acute kidney injury Likely secondary to urinary retention IV fluid hydration. Improving. Continue Sheikh catheter Monitor renal function Adnexal mass CT of the abdomen/pelvis significant for a left pelvic/adnexal mass that has a lobulated appearance was cystic and solid components concerning for ovarian neoplasm Oncology consulted, appreciate recommendations CA 125 pending Diabetes mellitus Holding home Lantus/metformin Sliding scale insulin Monitor blood glucose Continue Lantus if patient hyperglycemic Hypertension/hyperlipidemia Continue home medications Stage I pressure ulcer Wound care following, appreciate assistance Makayla Talley MD Sep 26, 2017 13:10
--- NOTE | 2017-09-26 14:49 | PD.ID.CON ---
History of Present Illness Service ID Consult Requested By Reason for Consult Evaluation and Mment of E.coli bacteremia. Primary Care Physician No Primary Care Physician Diagnoses: History of Present Illness is a 57-year-old AAF with past medical history significant for diabetes mellitus, hypertension, hyperlipidemia history of urinary retention and recent hospitalization and history of constipation presents to the emergency department at the [facility] where she was seen today. The patient reportedly was febrile when she was seen in clinic. She reports that she has significant constipation with her last bowel movement being yesterday however also reports diarrhea approximately 3 times per day including yesterday. The patient reports that she has been able to urinate intermittently however upon arrival to the emergency department was unable to do so and had lower pelvic pain consistent with her previous urinary retention. She also complains of left-sided flank pain. The patient denies any subjective fever/chills. No shortness of breath or chest pain. No nausea/ vomiting. No lateralizing signs/symptoms. In ED septic workup was initiated, blood cultures are positive and ID consulted for evaluation and Mment of E coli bacteremia and sepsis. Review of Systems ROS Limitations: Poor Historian Past Family Social History Allergies: Coded Allergies: No Known Allergies (Verified Allergy, Unknown, 09/26/17) Past Medical History Diabetes mellitus Hypertension Hyperlipidemia History of urinary retention History of constipation Past Surgical History Right foot ? hardware Left knee ? hardware Reported Medications Reported Meds & Active Scripts Active Lantus Inj (Insulin Glargine) 1,000 Unit/10 Ml Vial 36 Units SQ HS Norvasc (Amlodipine Besylate) 10 Mg Tab 10 Mg PO DAILY Ambien (Zolpidem Tartrate) 5 Mg Tab 5 Mg PO HS PRN Hydrochlorothiazide 25 Mg Tab 25 Mg PO DAILY Effexor XR 24 HR (Venlafaxine HCl) 37.5 Mg Cap 37.5 Mg PO DAILY Hydrocodone-Acetamin 7.5-325 (Hydrocodone/Acetaminophen) 7.5 Mg-325 Mg Tablet 1 Tab PO Q6H PRN Metformin (Metformin HCl) 1,000 Mg Tab 1,000 Mg PO BIDPC With meals Lisinopril 5 Mg Tab 5 Mg PO DAILY Glipizide 5 Mg Tab 5 Mg PO BIDAC Take 30 minutes before a meal Active Ordered Medications Current Medications Medications (Trade) Dose Ordered Sig/Elroy Route Start Time Stop Time Status Last Admin Pharmacy Profile Note 0 ml @ 0 mls/hr UNSCH OTHER 09/25/17 21:30 Piperacillin Sod/ Tazobactam Sod 50 ml @ 100 mls/hr Q6H IV 09/26/17 01:00 09/26/17 12:05 Sodium Chloride 1,000 ml @ 100 mls/hr Q10H IV 09/25/17 22:00 09/25/17 22:49 (NS Flush) 2 ml UNSCH PRN IV FLUSH 09/25/17 21:30 (NS Flush) 2 ml BID IV FLUSH 09/26/17 09:00 09/26/17 09:03 (Tylenol) 650 mg Q4H PRN PO 09/25/17 21:30 09/26/17 00:02 (Zofran Inj) 4 mg Q6H PRN IVP 09/25/17 21:30 (Narcan Inj) 0.4 mg UNSCH PRN IV PUSH 09/25/17 21:30 (Debi-Colace) 1 tab BID PO 09/26/17 09:00 09/26/17 09:02 (Milk Of Magnesia Liq) 30 ml Q12H PRN PO 09/25/17 21:30 (Senokot) 17.2 mg Q12H PRN PO 09/25/17 21:30 (Dulcolax Supp) 10 mg DAILY PRN RECTAL 09/25/17 21:30 (Lactulose Liq) 30 ml DAILY PRN PO 09/25/17 21:30 (D50w (Vial) Inj) 50 ml UNSCH PRN IV PUSH 09/25/17 21:30 (Glucagon Inj) 1 mg UNSCH PRN OTHER 09/25/17 21:30 (NovoLOG SUPPLEMENTAL SCALE) 1 ACHS SLIDING SCALE SQ 09/25/17 21:45 09/26/17 12:00 (Norvasc) 10 mg DAILY PO 09/26/17 09:00 09/26/17 09:00 (Hydrodiuril) 25 mg DAILY PO 09/26/17 09:00 09/26/17 09:03 (Prinivil) 5 mg DAILY PO 09/26/17 09:00 09/26/17 09:02 (Effexor Xr) 37.5 mg DAILY PO 09/26/17 09:00 09/26/17 09:03 (Ambien) 5 mg HS PRN PO 09/25/17 21:45 (Morphine Inj) 4 mg Q3H PRN IV PUSH 09/26/17 01:45 09/26/17 16:57 Vancomycin HCl 1250 mg/Sodium Chloride 262.5 ml @ 250 mls/hr Q24H IV 09/26/17 20:00 Miscellaneous Information SPECIFIC LAB TO BE DRAWN:VANCOMY... ONCE ONCE .XX 09/28/17 19:45 09/28/17 19:46 (Fleets Enema (Adult)) 133 ml UNSCH PRN RECTAL 09/26/17 09:00 Family History reviewed and NC to current ID problem. Social History Occ alcohol. No illicit drugs. Has a boyfriend. Niece visiting in room. Physical Exam Vital Signs Vital Signs Date Time Temp Pulse Resp B/P (MAP) Pulse Ox O2 Delivery O2 Flow Rate FiO2 09/26/17 13:43 09/26/17 11:10 99.7 111 18 121/64 (83) 95 09/26/17 10:02 09/26/17 07:40 100.2 128 18 120/70 (87) 96 09/26/17 07:24 129 09/26/17 06:00 120 09/26/17 05:16 99.1 120 16 128/78 (95) 97 09/26/17 05:00 118 09/26/17 04:00 102 09/26/17 04:00 105 09/26/17 03:00 104 09/26/17 02:00 116 09/26/17 01:55 100.7 09/26/17 01:50 116 09/26/17 01:00 122 09/26/17 00:00 142 09/26/17 00:00 102.8 137 18 142/74 (96) 97 09/25/17 23:46 140 09/25/17 23:36 09/25/17 22:50 104 16 139/68 (91) 99 Room Air 09/25/17 21:53 99.0 104 17 124/59 (80) 100 Room Air 09/25/17 19:44 100.4 114 16 124/67 (86) 97 Room Air 09/25/17 18:53 97 Room Air 09/25/17 18:53 100 Room Air 09/25/17 18:24 101.0 124 19 107/63 (78) 98 Room Air 09/25/17 18:13 102.0 131 20 141/67 (91) 99 Physical Exam GENERAL: This is a well-nourished, well-developed patient, in no apparent distress. SKIN: No rashes, ecchymoses or lesions. Cool and dry. HEAD: Atraumatic. Normocephalic. No temporal or scalp tenderness. EYES: Pupils equal round and reactive. Extraocular motions intact. No scleral icterus. No injection or drainage. ENT: Nose without bleeding, purulent drainage or septal hematoma. Throat without erythema, tonsillar hypertrophy or exudate. Uvula midline. Airway patent. NECK: Trachea midline. Supple, nontender, no meningeal signs. CARDIOVASCULAR: Regular rate and rhythm without murmurs, gallops, or rubs. RESPIRATORY: Clear to auscultation. Breath sounds equal bilaterally. No wheezes , rales, or rhonchi. GASTROINTESTINAL: Abdomen soft, mildly distended. Obese. Diffuse tenderness. MUSCULOSKELETAL: Extremities without clubbing, cyanosis, or edema. No joint tenderness, effusion, or edema noted. No calf tenderness. Negative Homans sign bilaterally. NEUROLOGICAL: Awake and alert. Non focal Psych cooperative IV line sites with no e.o infection. Laboratory Laboratory Tests Test 09/25/17 18:45 09/25/17 21:00 09/25/17 22:25 09/26/17 07:24 White Blood Count 14.3 12.8 Red Blood Count 4.50 4.26 Hemoglobin 9.7 9.3 Hematocrit 30.6 29.3 Mean Corpuscular Volume 68.1 68.8 Mean Corpuscular Hemoglobin 21.6 21.9 Mean Corpuscular Hemoglobin Concent 31.8 31.9 Red Cell Distribution Width 15.6 15.6 Platelet Count 274 283 Mean Platelet Volume 8.9 8.3 Neutrophils (%) (Auto) 79.6 86.8 Lymphocytes (%) (Auto) 7.6 4.2 Monocytes (%) (Auto) 12.3 8.4 Eosinophils (%) (Auto) 0.1 0.3 Basophils (%) (Auto) 0.4 0.3 Neutrophils # (Auto) 11.4 11.1 Lymphocytes # (Auto) 1.1 0.5 Monocytes # (Auto) 1.8 1.1 Eosinophils # (Auto) 0.0 0.0 Basophils # (Auto) 0.1 0.0 CBC Comment DIFF FINAL DIFF FINAL Differential Comment Prothrombin Time 11.2 Prothromb Time International Ratio 1.1 Activated Partial Thromboplast Time 31.1 Blood Urea Nitrogen 25 18 Creatinine 2.32 1.64 Random Glucose 211 250 Total Protein 7.8 Albumin 2.6 Calcium Level 9.1 8.7 Phosphorus Level 3.6 Magnesium Level 1.9 Alkaline Phosphatase 241 Aspartate Amino Transf (AST/SGOT) 18 Alanine Aminotransferase (ALT/SGPT) 15 Total Bilirubin 1.7 Sodium Level 129 139 Potassium Level 3.8 3.1 Chloride Level 91 105 Carbon Dioxide Level 26.3 25.9 Anion Gap 12 8 Estimat Glomerular Filtration Rate 26 39 Lactic Acid Level 2.3 1.2 0.7 Total Creatine Kinase 40 Troponin I LESS THAN 0.02 Lipase 34 Urine Color YELLOW Urine Turbidity HAZY Urine pH 5.5 Urine Specific [place] 1.006 Urine Protein TRACE Urine Glucose (UA) NEG Urine Ketones NEG Urine Occult Blood TRACE Urine Nitrite NEG Urine Bilirubin NEG Urine Urobilinogen LESS THAN 2.0 Urine Leukocyte Esterase LARGE Urine RBC 7 Urine WBC 30 Urine Squamous Epithelial Cells <1 Urine Amorphous Sediment RARE Urine Bacteria FEW Urine Mucus FEW Microscopic Urinalysis Comment CATH-CULTURE IND CA 125 Antigen 11.8 Date/Time Source Procedure Growth Status 09/25/17 18:45 Blood Peripheral Aerobic Blood Culture - Preliminary NO GROWTH IN 1 DAY Resulted 09/25/17 18:45 Anaerobic Blood Culture - Preliminary Escherichia Coli Resulted 09/25/17 21:00 Urine Catheterized Urine Urine Culture - Preliminary Gram Negative Jin Resulted Result Diagram: 09/26/17 0724 09/26/17 0724 Imaging Last Impressions Chest X-Ray 09/25/17 1832 Signed Impressions: Service Date/Time: Monday, September 25, 2017 18:44 - CONCLUSION: No acute disease. Sukhwinder Freeman MD Abdomen/Pelvis CT 09/25/17 0000 Signed Impressions: Service Date/Time: Monday, September 25, 2017 20:04 - CONCLUSION: 1. Bilateral hydronephrosis being worse on the right with hydroureter and distention of the urinary bladder. A bladder outlet obstruction needs to be considered. 2. Left pelvic/adnexal mass. It has a lobulated appearance with cystic and solid components concerning for ovarian neoplasm. 3. Large amount of stool the rectum. Sukhwinder Freeman MD Assessment and Plan Assessment and Plan Sepsis present on admission E.coli bacteremia (CTX-M negative) E.coli UTI: complicated with bilateral hydronephrosis. Ovarian abnormalities: recommend outpatient referral to heating systems installer. Retention of urine secondary large amount of stool ? ileus. Recs: Continue Zosyn IV for now. Continue Vanco IV Will likely deescalate in am. Repeat blood cultures x 2. If persistent bacteremia may need endovascular workup. Undergoing Golytely treatment for constipation. Follow cultures Follow clinically. Vika Pearson MD Sep 26, 2017 14:49
[2017-09-26] MEDS ORDERED: POTASSIUM CHLORIDE 10 MEQ CONTROLLED RELEASE TAB PO ONE (19:15)
[2017-09-26] MEDS ORDERED: VANCOMYCIN INJ 1,250 MG in SODIUM CHLOR 0.9% 250 ML INJ 250 ML IV SCH (20:00)
--- NOTE | 2017-09-26 22:18 | PD.CONS ---
HPI Chief Complaint Left adnexal cystic mass seen on CT scan Date Seen: Sep 26, 2017 Time Seen: 22:00 Travel History International Travel<30 Days: No Contact w/Intl Traveler<30Days: No Known Affected Area: No History of Present Illness HPI Patient is a 57-year-old white female para 1[40 years ago] who presents with mild urosepsis hydroureter urinary retention, chronic constipation, diabetes, hypertension, and on CT scan done on admission shows a 12 x 8 x 5 cm multicystic and solid lesion in the left adnexa. Patient does complain of pain in the left side and adnexal area that radiates around to the back some pain on the right but more so on the left Para: 1 : 1 History Past Medical History Narrative Medical Diabetes, hypertension, hyperlipidemia, chronic constipation, urinary retention and urosepsis Obstetric History Obstetric History 1 vaginal delivery Social History Alcohol Use: No Tobacco Use: No Substance Abuse: No Allergies-Medications (Allergen,Severity, Reaction): Coded Allergies: No Known Allergies (Verified Allergy, Unknown, 09/26/17) Home Meds Active Scripts Insulin Glargine Inj (Lantus Inj) 1,000 Unit/10 Ml Vial, 36 UNITS SQ HS for Blood Sugar Management, #2 VIAL 2 Refills Prov:Mely Pitts MD R1 09/15/17 Amlodipine (Norvasc) 10 Mg Tab, 10 MG PO DAILY, #30 TAB 1 Refill Prov:Mely Pitts MD R1 09/15/17 Zolpidem (Ambien) 5 Mg Tab, 5 MG PO HS Y for INSOMNIA, #30 TAB 1 Refill Prov:Mely Pitts MD R1 09/15/17 Hydrochlorothiazide (Hydrochlorothiazide) 25 Mg Tab, 25 MG PO DAILY, #30 TAB 2 Refills Prov:Mely Pitts MD R1 09/15/17 Venlafaxine ER 24 HR (Effexor XR 24 HR) 37.5 Mg Cap, 37.5 MG PO DAILY, #30 CAP 2 Refills Prov:Mely Pitts MD R1 09/15/17 Hydrocodone/Acetaminophen (Hydrocodone-Acetamin 7.5-325) 7.5 Mg-325 Mg Tablet, 1 TAB PO Q6H Y for PAIN SCALE 7 TO 10, #15 Prov:Mely Pitts MD R1 09/15/17 Metformin (Metformin) 1,000 Mg Tab, 1000 MG PO BIDPC for Blood Sugar Management , #60 TAB 2 Refills With meals Prov:Mely Pitts MD R1 09/15/17 Lisinopril (Lisinopril) 5 Mg Tab, 5 MG PO DAILY for Blood Pressure Management, # 30 TAB 0 Refills Prov:Eliane Shah MD 09/05/16 Glipizide (Glipizide) 5 Mg Tab, 5 MG PO BIDAC for Blood Sugar Management, #60 TAB 0 Refills Take 30 minutes before a meal Prov:Eliane Shah MD 09/05/16 Review of Systems Gastrointestinal: Abdominal Pain, Constipation Genitourinary: Decreased Urinary Output Physical Exam Vital Signs Date Time Temp Pulse Resp B/P (MAP) Pulse Ox O2 Delivery O2 Flow Rate FiO2 09/26/17 15:45 99.7 113 18 101/68 (79) 96 09/26/17 15:03 110 09/26/17 13:43 09/26/17 11:10 99.7 111 18 121/64 (83) 95 09/26/17 10:02 09/26/17 07:40 100.2 128 18 120/70 (87) 96 09/26/17 07:24 129 09/26/17 06:00 120 09/26/17 05:16 99.1 120 16 128/78 (95) 97 09/26/17 05:00 118 09/26/17 04:00 102 09/26/17 04:00 105 09/26/17 03:00 104 09/26/17 02:00 116 09/26/17 01:55 100.7 09/26/17 01:50 116 09/26/17 01:00 122 09/26/17 00:00 142 09/26/17 00:00 102.8 137 18 142/74 (96) 97 09/25/17 23:46 140 09/25/17 23:36 09/25/17 22:50 104 16 139/68 (91) 99 Room Air Narrative GENERAL: Well-nourished, well-developed obese patient.NAD SKIN: Warm and dry. HEAD: Normocephalic and atraumatic. EYES: No scleral icterus. No injection or drainage. ENT: No nasal drainage noted. Mucous membranes pink. Airway patent. NECK: Supple, trachea midline. No JVD. CARDIOVASCULAR: Regular rate and rhythm without murmurs, gallops, or rubs. RESPIRATORY: Breath sounds equal bilaterally. No accessory muscle use. BREASTS: Bilateral exam showed no masses , no retractions, no nipple discharge. ABDOMEN/GI: Abdomen soft, 1+-tender, bowel sounds present, no rebound, no guarding GENITOURINARY: External Genitalia: intact and normal in appearance, patient is incontinent of stool and there is stool in the vagina as well as the rectum and in bed Cervix: [Could not palpate due to the large amount of stool that is rock hard in the rectal vault and pushing up into the vagina and not allowing me to access to the upper half of the vagina-] Could not palpate the pelvic structures due to obesity and guarding -] EXTREMITIES: No cyanosis or edema. BACK: Nontender without obvious deformity. No CVA tenderness. NEUROLOGICAL: Awake and alert. Motor and sensory grossly within normal limits. Five out of 5 muscle strength in all muscle groups. Normal speech. Data Data Orders Orders Morphine Inj (Morphine Inj) (09/26/17 01:45) Physician Name Changes (09/26/17 ) Vancomycin Inj (Vancomycin Inj) (09/26/17 20:00) Misc. Nursing Information (09/28/17 19:45) Vancomycin Trough (09/28/17 19:45) Creatinine (09/27/17 06:00) Fleets Enema (Adult) (Fleets Enema (Adul (09/26/17 09:00) Peg (High)/E-Lyte Liq (Colyte Liq) (09/26/17 09:00) Consult Infectious Disease (09/26/17 ) (Hub Use Only)Inp Phy Cons/Ref (09/26/17 ) Blood Culture (09/26/17 14:49) Wound Care (09/26/17 16:40) Potassium Chloride (Kcl) (09/26/17 19:15) Consult Gynecology (09/26/17 ) (Hub Use Only)Inp Phy Cons/Ref (09/26/17 ) Us Pelvis Comp W Transvaginal (09/27/17 ) Labs Laboratory Tests Test 09/25/17 22:25 09/26/17 07:24 Lactic Acid Level 0.7 White Blood Count 12.8 Red Blood Count 4.26 Hemoglobin 9.3 Hematocrit 29.3 Mean Corpuscular Volume 68.8 Mean Corpuscular Hemoglobin 21.9 Mean Corpuscular Hemoglobin Concent 31.9 Red Cell Distribution Width 15.6 Platelet Count 283 Mean Platelet Volume 8.3 Neutrophils (%) (Auto) 86.8 Lymphocytes (%) (Auto) 4.2 Monocytes (%) (Auto) 8.4 Eosinophils (%) (Auto) 0.3 Basophils (%) (Auto) 0.3 Neutrophils # (Auto) 11.1 Lymphocytes # (Auto) 0.5 Monocytes # (Auto) 1.1 Eosinophils # (Auto) 0.0 Basophils # (Auto) 0.0 CBC Comment DIFF FINAL Differential Comment Blood Urea Nitrogen 18 Creatinine 1.64 Random Glucose 250 Calcium Level 8.7 Sodium Level 139 Potassium Level 3.1 Chloride Level 105 Carbon Dioxide Level 25.9 Anion Gap 8 Estimat Glomerular Filtration Rate 39 CA 125 Antigen 11.8 Date/Time Source Procedure Growth Status 09/26/17 17:45 Blood Peripheral Aerobic Blood Culture Pending Received 09/26/17 17:45 Blood Peripheral Anaerobic Blood Culture Pending Received 09/25/17 21:00 Urine Catheterized Urine Urine Culture - Preliminary Gram Negative Jin Resulted MDM Interpretation(s) 57-year-old black female para 1 who has a 12 x 8 x 5 cm multicystic and solid mass in the left pelvis that on CAT scan was immediate adjacent to a greatly enlarged bladder and rectum impacted with a large amount of stool. Patient's CA 125 was 11.8 within the normal range, and a pelvic ultrasound is been ordered but not done yet with transvaginal access Plan Plan to check the results of the vaginal ultrasound if that confirms a cystic solid mass in the left adnexa and recommend RETURNING OFFICER oncology consultation as malignancy of the ovarian/ tubal structures would need to be ruled out Admitting diagnosis: Sepsis, Urinary retention, Acute renal failure Diagnosis: Pelvic mass with solid and cystic component Marlon Ewing II, MD Sep 26, 2017 22:18
[2017-09-27] VITALS (15 sets, daily range): BP systolic 115–159; BP diastolic 60–88; PULSE 95–115; RESP 18–20; TEMP 97.2–99.3; O2SAT 92–96
--- NOTE | 2017-09-27 00:12 | MB ---
cc: Kwame Cheek MD DATE: 09/26/2017 REASON FOR CONSULTATION: The patient with a large left adnexal mass. HISTORY OF PRESENT ILLNESS: This is a 57-year-old female who has not had medical care and recently established primary care physician. She states that she was diagnosed with diabetes, hypertension, and hyperlipidemia. She has had a history of urinary retention and has had admission to [facility] before. She has been experiencing intermittent diarrhea and constipation, and she had difficulty urinating. She came to the emergency department. A CT of the abdomen and pelvis was obtained on admission which showed bilateral hydronephrosis, right greater than left, with hydroureter and distention of the urinary bladder. There was also a large left adnexal mass which appeared to have both cystic and solid components and was concerning for ovarian neoplasm. The patient was admitted to the hospital. She had a Sheikh placement. Urology has been seeing the patient. The patient was found to be in acute kidney injury and was found to have acute renal failure with a creatinine of 2.32 from a baseline of 1.5. Oncology has been consulted to make further recommendations regarding a lobulated mass with a cystic and solid component concerning for ovarian neoplasm. The patient has not had consistent medical care. She states that she has never had any medical issues until recently. She does not endorse any constitutional B symptoms including night sweats, fevers, weight loss, loss of appetite. She has not had any vaginal bleeding. She does not endorse any lymphadenopathy. She has not had any recurrent infections. REVIEW OF SYSTEMS: A comprehensive review of systems was completed, which was negative except as described in the HPI. PAST MEDICAL HISTORY: Diabetes type 2, hypertension, hyperlipidemia, history of urinary ____, history of constipation. PAST SURGICAL HISTORY: History of foot surgery and left knee surgery. FAMILY HISTORY: Noncontributory to this admission. SOCIAL HISTORY: She states that she smokes 1-2 packs of cigarettes per day and has done that for many years. She does not drink alcohol. No illicit drug use. MEDICATIONS: Vancomycin, senna, docusate p.r.n., amlodipine 10 mg p.o. daily, hydrochlorothiazide 25 mg p.o. daily, lisinopril 5 mg daily, Effexor 37.5 mg p.o. daily, morphine sulfate 4 mg IV every 3 hours p.r.n., Zosyn, sliding scale insulin, Ambien 5 mg daily, Tylenol p.r.n., Zofran p.r.n., milk of magnesia p.r.n. ALLERGIES: NO KNOWN DRUG ALLERGIES. PHYSICAL EXAMINATION: VITAL SIGNS: Blood pressure is 101/68, pulse in the 100s, temperature is 99.7. GENERAL: Obese female in no apparent distress. HEENT: Pupils are equal, round, reactive to light. EOMI. No thrush, no lesions. NECK: Supple. No JVD. No bruits. No lymphadenopathy. CHEST: Clear to auscultation bilaterally. CARDIAC: S1, S2. Regular rate and rhythm. ABDOMEN: Distended due to obesity. Spleen and liver are not palpable. Bowel sounds are present. EXTREMITIES: Without any edema, erythema or cyanosis. SKIN: Without any petechiae, lesions, or bruises. NEUROLOGIC: No focal deficits. PSYCHIATRIC: Mood and affect is appropriate. LABORATORY DATA: WBC 12.8, hemoglobin 9.3, platelet count 283. Serum chemistry: Sodium 139, potassium 3.1, chloride 105, CO2 of 25.9, BUN 18, creatinine 1.64, GFR is 39. CA-125 is 11.8. Coags show PT 11.2, INR 1.1, PTT 31.1. IMAGING: CT scan of the abdomen was reviewed, described in HPI. ASSESSMENT AND PLAN: This is a 57-year-old female who has a history of diabetes, hypertension and hyperlipidemia, who presents to the emergency room with urinary retention. She was found to have bilateral hydronephrosis and a large adnexal mass. Oncology has been consulted to make further recommendations regarding the adnexal mass. 1. Large adnexal mass on the left with both cystic and solid component. Certainly there is a concern for underlying malignancy. Her CA-125 levels are not elevated. I would recommend obtaining a pelvic ultrasound. I am asking gynecology to evaluate this patient. She may need a pelvic exam. Based on the results from the pelvic ultrasound and further recommendations from gynecology, this patient will need a biopsy of this mass. We may also have to ask gynecologic oncology to see this patient. I have discussed this with the patient at length. 2. Bilateral hydronephrosis. She has a Sheikh catheter in place. Urology is following this patient. 3. Severe constipation. 4. Urinary tract infection and sepsis. She has gram-negative rods and this is an Escherichia coli. Sensitivities are pending. Thank you for allowing me to participate in the care of this patient. I will continue to follow this patient along. Further recommendations will be made based on evaluation by gynecology as well as the results of the pelvic ultrasound. Ultimately, the patient will need a tissue biopsy to confirm whether this is malignancy. MD MARICARMEN Wilcox/BLANCA , 11:38 PM , 12:11 AM
[2017-09-27] MEDS: PIPERACIL-TAZO 3.375 GM PREMIX 50 ML IV SCH ×4 (00:57→18:03)
[2017-09-27] MEDS: MORPHINE SULFATE 4 MG/ML INJ IV PUSH PRN ×6 (00:57→22:16)
[2017-09-27] MEDS: SODIUM CHLOR 0.9% 1000 ML INJ 1,000 ML IV SCH ×3 (04:17→22:22)
[2017-09-27] MEDS: LISINOPRIL 5 MG TAB PO SCH (08:47)
[2017-09-27] MEDS: SODIUM CHLORIDE 0.9% FLUSH 10 ML FLUSH IV FLUSH SCH ×2 (08:47→21:00)
[2017-09-27] MEDS: HYDROCHLOROTHIAZIDE 25 MG TAB PO SCH (08:47)
[2017-09-27] MEDS: DOCUSATE SODIUM 50 MG/SENNA 8.6 MG TAB PO SCH ×2 (08:47→21:35)
[2017-09-27] MEDS: VENLAFAXINE HCL XR 37.5 MG CAP PO SCH (08:47)
[2017-09-27] MEDS: INSULIN ASPART SUPPLEMENTAL SCALE SQ SCH ×4 (08:59→21:36)
[2017-09-27 09:21] LABS: CREATININE 1.29 MG/DL (0.50-1.00)
--- NOTE | 2017-09-27 11:04 | RADRPT ---
EXAM DATE/TIME: 09/27/2017 09:33 [facility] COMPARISON: CT ABDOMEN & PELVIS W/O CONTRAST, September 25, 2017, 20:04. INDICATIONS : Adnexal mass. MEDICAL HISTORY : Hypertension. Ulcer. Diabetes. SURGICAL HISTORY : Right ankle surgery. Left knee surgery. ENCOUNTER: Initial ACUITY: 1 month PAIN SCORE: 9/10 LOCATION: Bilateral pelvis MEASUREMENTS: UTERUS: 8.6 x 6.3 x 4.6 cm ENDOMETRIAL STRIPE: 7 mm RIGHT OVARY: cm Non visualized LEFT OVARY: cm Non visualized FINDINGS: The patient refused transvaginal scanning. On transabdominal scanning, Sheikh catheter is now seen in the decompressed urinary bladder. The uterus is moderately heterogeneous. The left adnexal region is obscured by intestinal gas. A process in the right adnexa is of undetermined origin, the appearance n ot clearly correlating with the CT exam. Further evaluation with pelvic MRI suggested. CONCLUSION: Equivocal sonographic appearance of the pelvis Sukhwinder Ayala MD on September 27, 2017 at 10:55 Board Certified Radiologist. This report was verified electronically.
[2017-09-27] MEDS ORDERED: VANCOMYCIN INJ 1,500 MG in SODIUM CHLORID 0.9% 500 ML INJ 500 ML IV SCH (12:00)
--- NOTE | 2017-09-27 12:06 | HHI.PR ---
Subjective Remarks Patient reports she had diarrhea all night. Still complaining of left lower abdominal/left flank pain. No nausea or vomiting. Objective Vitals Vital Signs Date Time Temp Pulse Resp B/P (MAP) Pulse Ox O2 Delivery O2 Flow Rate FiO2 09/27/17 11:51 98.4 103 18 134/60 (84) 93 09/27/17 10:00 108 09/27/17 09:00 110 09/27/17 09:00 16 09/27/17 08:00 104 09/27/17 08:00 97.9 109 18 159/88 (111) 96 09/27/17 07:31 102 09/27/17 04:17 97.2 104 18 115/84 (94) 94 09/27/17 04:00 95 09/27/17 03:00 104 09/27/17 02:00 110 09/27/17 00:00 98.9 115 18 125/76 (92) 92 09/27/17 00:00 105 09/26/17 23:00 122 09/26/17 22:00 120 09/26/17 20:15 99.8 103 18 137/67 (90) 91 09/26/17 20:00 112 09/26/17 20:00 110 09/26/17 19:00 112 09/26/17 15:45 99.7 113 18 101/68 (79) 96 09/26/17 15:03 110 09/26/17 13:43 I/O 09/26/17 09/26/17 09/26/17 09/27/17 09/27/17 09/27/17 07:00 15:00 23:00 07:00 15:00 23:00 Intake Total 2490 ml 850 ml 2650 ml 1720 ml Output Total 4400 ml 6250 ml 1850 ml Balance -1910 ml 850 ml -3600 ml -130 ml Intake Oral 1540 ml 2400 ml 480 ml IV Total 950 ml 850 ml 250 ml 1240 ml Output Urine Total 4400 ml 6250 ml 1850 ml # Bowel Movements 2 2 Result Diagram: 09/26/17 0724 09/27/17 0811 Objective Remarks GENERAL: This is a well-nourished, well-developed patient, in no apparent distress. CARDIOVASCULAR: Normal rate and regular rhythm without murmurs, gallops, or rubs. RESPIRATORY: Good respiratory efforts. Breath sounds equal and clear to auscultation bilaterally. GASTROINTESTINAL: Abdomen soft, mild tenderness mostly located on the left lower quadrant. Normal and active bowel sounds. MUSCULOSKELETAL: Extremities without cyanosis, or edema. NEURO: Alert & Oriented x4 to person, place, time, situation. Moves all ext x4 PSYCH: Appropriate mood and affect. A/P Assessment and Plan Severe sepsis Patient febrile, tachycardic with elevated lactic acid and leukocytosis E. coli UTI/E. coli bacteremia. Blood cultures growing E. coli. Appreciate infectious disease input. Continue vancomycin/Zosyn Urinary retention/hydronephrosis/hydroureter CT of the abdomen and pelvis significant for bilateral hydronephrosis right greater than left with hydroureter and distention of the urinary bladder; and sent for bladder obstruction Sheikh placed with 2 L of urine output Patient recently hospitalized and evaluated for similar, though at the time this was secondary to constipation Appreciate urology following who recommended continuing to treat constipation aggressively. Hypokalemia: - Replace and monitor. Acute kidney injury Likely secondary to urinary retention IV fluid hydration. Improving. Continue Sheikh catheter Monitor renal function Adnexal mass CT of the abdomen/pelvis significant for a left pelvic/adnexal mass that has a lobulated appearance was cystic and solid components concerning for ovarian neoplasm Oncology consulted, POWER HOUSE CONTROL ROOM OPERATOR consulted and pelvic ultrasound was ordered. Limited abdominal ultrasound was done. Patient was fearful of pain issue with pelvic ultrasound. CA 125 pending Consider FINANCIAL ASSOCIATE oncology consult pending ultrasound findings. Diabetes mellitus Holding home Lantus/metformin Sliding scale insulin Monitor blood glucose Continue Lantus if patient hyperglycemic Hypertension/hyperlipidemia Continue home medications Stage I pressure ulcer Wound care following, appreciate assistance Makayla Talley MD Sep 27, 2017 12:06
--- NOTE | 2017-09-27 12:49 | HHI.PR ---
Subjective Patient symptoms today Pt seen and examined. Having BM's all through the night. Still with diarrhea. Objective Vital Signs Vital Signs Date Time Temp Pulse Resp B/P (MAP) Pulse Ox O2 Delivery O2 Flow Rate FiO2 09/27/17 11:51 98.4 103 18 134/60 (84) 93 09/27/17 10:00 108 09/27/17 09:00 110 09/27/17 09:00 16 09/27/17 08:00 104 09/27/17 08:00 97.9 109 18 159/88 (111) 96 09/27/17 07:31 102 09/27/17 04:17 97.2 104 18 115/84 (94) 94 09/27/17 04:00 95 09/27/17 03:00 104 09/27/17 02:00 110 09/27/17 00:00 98.9 115 18 125/76 (92) 92 09/27/17 00:00 105 09/26/17 23:00 122 09/26/17 22:00 120 09/26/17 20:15 99.8 103 18 137/67 (90) 91 09/26/17 20:00 112 09/26/17 20:00 110 09/26/17 19:00 112 09/26/17 15:45 99.7 113 18 101/68 (79) 96 09/26/17 15:03 110 09/26/17 13:43 Intake & Output 09/27/17 09/27/17 07:00 19:00 Intake Total 1970 ml Output Total 2600 ml Balance -630 ml Intake Oral 480 ml IV Total 1490 ml Output Urine Total 2600 ml # Bowel Movements 4 Result Diagram: 09/26/17 0724 09/27/17 0811 Imaging Last 24 hours Impressions Pelvis Ultrasound 09/27/17 0000 Signed Impressions: Service Date/Time: August 09:33 - CONCLUSION: Equivocal sonographic appearance of the pelvis Sukhwinder Ayala MD Objective Remarks Abd:soft,nt,nd Sheikh with clear urine. Medications and IVs Current Medications Medications (Trade) Dose Ordered Sig/Elroy Route Start Time Stop Time Status Last Admin Piperacillin Sod/ Tazobactam Sod 50 ml @ 100 mls/hr Q6H IV 09/26/17 01:00 09/27/17 08:42 Sodium Chloride 1,000 ml @ 100 mls/hr Q10H IV 09/25/17 22:00 09/27/17 04:17 (NS Flush) 2 ml UNSCH PRN IV FLUSH 09/25/17 21:30 (NS Flush) 2 ml BID IV FLUSH 09/26/17 09:00 09/26/17 09:03 (Tylenol) 650 mg Q4H PRN PO 09/25/17 21:30 09/26/17 00:02 (Zofran Inj) 4 mg Q6H PRN IVP 09/25/17 21:30 (Narcan Inj) 0.4 mg UNSCH PRN IV PUSH 09/25/17 21:30 (Debi-Colace) 1 tab BID PO 09/26/17 09:00 09/27/17 08:47 (Milk Of Magnesia Liq) 30 ml Q12H PRN PO 09/25/17 21:30 (Senokot) 17.2 mg Q12H PRN PO 09/25/17 21:30 (Dulcolax Supp) 10 mg DAILY PRN RECTAL 09/25/17 21:30 (Lactulose Liq) 30 ml DAILY PRN PO 09/25/17 21:30 (D50w (Vial) Inj) 50 ml UNSCH PRN IV PUSH 09/25/17 21:30 (Glucagon Inj) 1 mg UNSCH PRN OTHER 09/25/17 21:30 (NovoLOG SUPPLEMENTAL SCALE) 1 ACHS SLIDING SCALE SQ 09/25/17 21:45 09/27/17 12:42 (Norvasc) 10 mg DAILY PO 09/26/17 09:00 09/27/17 08:47 (Hydrodiuril) 25 mg DAILY PO 09/26/17 09:00 09/27/17 08:47 (Prinivil) 5 mg DAILY PO 09/26/17 09:00 09/27/17 08:47 (Effexor Xr) 37.5 mg DAILY PO 09/26/17 09:00 09/27/17 08:47 (Ambien) 5 mg HS PRN PO 09/25/17 21:45 (Morphine Inj) 4 mg Q3H PRN IV PUSH 09/26/17 01:45 09/27/17 08:48 (Fleets Enema (Adult)) 133 ml UNSCH PRN RECTAL 09/26/17 09:00 Assessment and Plan Assessment and Plan 57 y.o female with constipation and DM causing urinary retention Continue Maria De Jesus till BM's have resolved. Void trial on the following morning at 6AM after constipation has been cleared. Jose Guadalupe Hernandez DO Sep 27, 2017 12:49
--- NOTE | 2017-09-27 16:49 | HHI.PR ---
Addendum to Inpatient Note Addendum Reason: Additional Documentation Additional Information Chart review documentation dw Clinically stable, appears to be responding to Zosyn IV. No fevers Blood cx: pending susceptibility. Recs Continue Zosyn IV(of overnight any clinical change change to Ertapenem or Meropenem IV) Repeat blood cultures after effective therapy will decide based on clinical picture and susceptibilities. Will see pt in am. Vika Pearson MD Sep 27, 2017 16:49
--- NOTE | 2017-09-27 22:03 | PD.ONC.PN ---
Subjective Subjective Remarks resting comfortably denies any pain says she wants PT refused transvaginal scanning Objective Data Date Time Temp Pulse Resp B/P (MAP) Pulse Ox O2 Delivery O2 Flow Rate FiO2 09/27/17 18:10 18 09/27/17 16:40 98.8 102 20 123/69 (87) 96 09/27/17 15:40 100 09/27/17 12:12 106 09/27/17 11:51 98.4 103 18 134/60 (84) 93 09/27/17 10:00 108 09/27/17 09:00 110 09/27/17 08:00 104 09/27/17 08:00 97.9 109 18 159/88 (111) 96 09/27/17 07:31 102 09/27/17 04:17 97.2 104 18 115/84 (94) 94 09/27/17 04:00 95 09/27/17 03:00 104 09/27/17 02:00 110 09/27/17 00:00 98.9 115 18 125/76 (92) 92 09/27/17 00:00 105 09/26/17 23:00 122 09/27/17 09/27/17 09/27/17 07:00 15:00 23:00 Intake Total 1720 ml 2690 ml Output Total 1850 ml 5050 ml Balance -130 ml -2360 ml Result Diagram: 09/26/17 0724 09/27/17 0811 Laboratory Results Laboratory Tests Test 09/27/17 08:11 Creatinine 1.29 MG/DL Estimat Glomerular Filtration Rate 52 ML/MIN Culture Results Microbiology Date/Time Source Procedure Growth Status 09/26/17 17:45 Blood Peripheral Aerobic Blood Culture - Preliminary NO GROWTH IN 1 DAY Resulted 09/26/17 17:45 Anaerobic Blood Culture - Preliminary Gram Negative Jin Resulted 09/26/17 17:40 Blood Peripheral Aerobic Blood Culture - Preliminary NO GROWTH IN 1 DAY Resulted 09/26/17 17:40 Anaerobic Blood Culture - Preliminary Gram Negative Jin Resulted 09/25/17 18:45 Blood Peripheral Aerobic Blood Culture - Preliminary NO GROWTH IN 2 DAYS Resulted 09/25/17 18:45 Anaerobic Blood Culture - Preliminary Escherichia Coli Resulted 09/25/17 18:40 Blood Peripheral Aerobic Blood Culture - Preliminary NO GROWTH IN 2 DAYS Resulted 09/25/17 18:40 Anaerobic Blood Culture - Preliminary Escherichia Coli Resulted 09/25/17 21:00 Urine Catheterized Urine Urine Culture - Preliminary Escherichia Coli Resulted Imaging Studies Last 24 hours Impressions Pelvis Ultrasound 09/27/17 0000 Signed Impressions: Service Date/Time: August 09:33 - CONCLUSION: Equivocal sonographic appearance of the pelvis Sukhwinder Ayala MD Administered Medications Medications (Trade) Dose Ordered Sig/Elroy Route PRN Reason Start Time Stop Time Status Last Admin Dose Admin Piperacillin Sod/ Tazobactam Sod 50 ml @ 100 mls/hr Q6H IV 09/26/17 01:00 09/27/17 18:03 Sodium Chloride 1,000 ml @ 100 mls/hr Q10H IV 09/25/17 22:00 09/27/17 13:33 Sodium Chloride (NS Flush) 2 ml BID IV FLUSH 09/26/17 09:00 09/26/17 09:03 Acetaminophen (Tylenol) 650 mg Q4H PRN PO TEMP > 100.4 09/25/17 21:30 09/26/17 00:02 Senna/Docusate Sodium (Debi-Colace) 1 tab BID PO 09/26/17 09:00 09/27/17 21:35 Insulin Aspart (NovoLOG SUPPLEMENTAL SCALE) 1 ACHS SLIDING SCALE SQ 09/25/17 21:45 09/27/17 21:36 Amlodipine Besylate (Norvasc) 10 mg DAILY PO 09/26/17 09:00 09/27/17 08:47 Hydrochlorothiazide (Hydrodiuril) 25 mg DAILY PO 09/26/17 09:00 09/27/17 08:47 Lisinopril (Prinivil) 5 mg DAILY PO 09/26/17 09:00 09/27/17 08:47 Venlafaxine HCl (Effexor Xr) 37.5 mg DAILY PO 09/26/17 09:00 09/27/17 08:47 Morphine Sulfate (Morphine Inj) 4 mg Q3H PRN IV PUSH pain 6-10 09/26/17 01:45 09/27/17 18:04 Objective Remarks GENERAL: nad SKIN: Warm and dry. LYMPHATIC: No adenopathy. CARDIOVASCULAR: Regular rate and rhythm without murmurs. RESPIRATORY: Breath sounds equal bilaterally. No accessory muscle use. GASTROINTESTINAL: Abdomen soft, nondistended. minimal tenderness EXTREMITIES: No cyanosis, or edema. Assessment/Plan Problem List: (1) Adnexal mass ICD Codes: N94.9 - Unspecified condition associated with female genital organs and menstrual cycle Status: Acute (2) Abdominal pain ICD Codes: R10.9 - Unspecified abdominal pain Status: Resolved Assessment 57-year-old female who has a history of diabetes, hypertension and hyperlipidemia, who presents to the emergency room with urinary retention. She was found to have bilateral hydronephrosis and a large adnexal mass. 1. Large adnexal mass on the left with both cystic and solid component. CA 125 not elevated - Patient refused transvaginal scanning. Abdominal U/S was equivocal - Recommend Pelvic MRI--orders placed 2. Bilateral hydronephrosis. She has a Sheikh catheter in place. Urology is following this patient. 3. Severe constipation. 4. Urinary tract infection and sepsis. She has gram-negative rods and this is an Escherichia coli. Kwame Cheek MD Sep 27, 2017 22:03
[2017-09-28] VITALS (12 sets, daily range): BP systolic 106–145; BP diastolic 66–83; PULSE 83–110; RESP 16–20; TEMP 98–99.1; O2SAT 94–98
[2017-09-28] MEDS: PIPERACIL-TAZO 3.375 GM PREMIX 50 ML IV SCH ×3 (01:17→12:11)
[2017-09-28] MEDS: MORPHINE SULFATE 4 MG/ML INJ IV PUSH PRN ×5 (01:46→20:28)
[2017-09-28 07:27] LABS: HEMATOCRIT 27.6 % (35.0-46.0); HEMOGLOBIN 8.9 GM/DL (11.6-15.3); MEAN CELL VOLUME 68.8 FL (80.0-100.0); MEAN CORPUSCULAR HEMOGLOBIN 22.1 PG (27.0-34.0); MEAN CORPUSCULAR HGB CONC 32.2 % (32.0-36.0); MEAN PLATELET VOLUME 8.4 FL (7.0-11.0); PLATELET COUNT 329 TH/MM3 (150-450); RED BLOOD COUNT 4.02 MIL/MM3 (4.00-5.30); RED CELL DISTRIBUTION WIDTH 15.8 % (11.6-17.2); WHITE BLOOD COUNT 10.2 TH/MM3 (4.0-11.0)
[2017-09-28] MEDS: INSULIN ASPART SUPPLEMENTAL SCALE SQ SCH ×4 (08:00→20:26)
[2017-09-28 08:02] LABS: BICARBONATE 29.3 MEQ/L (21.0-32.0); BLOOD UREA NITROGEN 10 MG/DL (7-18); CALCIUM 9.1 MG/DL (8.5-10.1); CHLORIDE 101 MEQ/L (98-107); CREATININE 1.18 MG/DL (0.50-1.00); GLOMERULAR FILTRATION RATE 57 ML/MIN (>89); GLUCOSE,RANDOM 209 MG/DL (74-106); SODIUM (NA) 138 MEQ/L (136-145)
[2017-09-28 08:04] LABS: IRON (FE) 23 MCG/DL (50-170)
[2017-09-28] MEDS: DOCUSATE SODIUM 50 MG/SENNA 8.6 MG TAB PO SCH ×2 (08:25→20:21)
[2017-09-28] MEDS: VENLAFAXINE HCL XR 37.5 MG CAP PO SCH (08:25)
[2017-09-28] MEDS: LISINOPRIL 5 MG TAB PO SCH (08:26)
[2017-09-28] MEDS: SODIUM CHLORIDE 0.9% FLUSH 10 ML FLUSH IV FLUSH SCH ×2 (08:28→20:21)
[2017-09-28] MEDS: HYDROCHLOROTHIAZIDE 25 MG TAB PO SCH (08:28)
[2017-09-28 08:32] LABS: % SATURATION IRON PROFILE 13.8 % (20-50); FERRITIN 538 NG/ML (8-252); TOTAL IRON BINDING CAPACITY 167 MCG/DL (250-450)
[2017-09-28] MEDS: SODIUM CHLOR 0.9% 1000 ML INJ 1,000 ML IV SCH ×2 (10:00→20:21)
--- NOTE | 2017-09-28 14:03 | ECHRPT ---
Indication: POSS SEPSIS, ENDOCARDITIS CONCLUSIONS Normal left ventricular size. Mild concentric left ventricular hypertrophy. The left ventricular systolic function is hyperdynamic with an estimated ejection fraction in the ra nge of 65- 70%. The left atrial size is mildly dilated. The right atrial size is mildly dilated. [id number] mitral valve regurgitation. There is trace tricuspid valve regurgitation. Trivial pulmonary valve regurgitation. BP: 159 / 88 HR: 108 Rhythm: Sinus MEASUREMENTS (Male / Female) Normal Values Technical Quality:Fair 2D ECHO LV Diastolic Diameter PLAX 4.3 cm 4.2 - 5.9 / 3.9 - 5.3 cm LV Systolic Diameter PLAX 2.9 cm IVS Diastolic Thickness 1.1 cm 0.6 - 1.0 / 0.6 - 0.9 cm LVPW Diastolic Thickness 1.1 cm 0.6 - 1.0 / 0.6 - 0.9 cm LV Relative Wall Thickness 0.5 RV Internal Dim ED PLAX 3.4 cm LVOT Diameter 2.1 cm Aortic Root Diameter 3.4 cm LA Systolic Diameter LX 4.3 cm 3.0 - 4.0 / 2.7 - 3.8 cm M-MODE AV Cusp Separation MM 2.3 cm DOPPLER AV Peak Velocity 128.0 cm/s AV Peak Gradient 6.6 mmHg AV Mean Gradient 4.0 mmHg AV Velocity Time Integral 22.4 cm LVOT Peak Velocity 101.0 cm/s LVOT Peak Gradient 4.1 mmHg LVOT Velocity Time Integral 20.6 cm AV Area Cont Eq vti 3.2 cm AV Area Cont Eq pk 2.7 cm Mitral E Point Velocity 104.0 cm/s Mitral A Point Velocity 79.5 cm/s Mitral E to A Ratio 1.3 LV E' Lateral Velocity 9.1 cm/s Mitral E to LV E' Lateral Ratio 11.5 LV E' Septal Velocity 7.9 cm/s Mitral E to LV E' Septal Ratio 13.2 PV Peak Velocity 70.7 cm/s PV Peak Gradient 2.0 mmHg FINDINGS LEFT VENTRICLE Normal left ventricular size. Mild concentric left ventricular hypertrophy. The left ventricular systolic function is hyperdynamic with an estimated ejection fraction in the ra nge of 65- 70%. RIGHT VENTRICLE Normal right ventricular size and systolic function. LEFT ATRIUM The left atrial size is mildly dilated. RIGHT ATRIUM The right atrial size is mildly dilated. ATRIAL SEPTUM No atrial level shunt is demonstrated by color flow Doppler interrogation. AORTA The aortic root and proximal ascending aorta are not well visualized. MITRAL VALVE [id number] mitral valve regurgitation. AORTIC VALVE Trileaflet aortic valve. No aortic valve stenosis or regurgitation. TRICUSPID VALVE There is trace tricuspid valve regurgitation. PULMONARY VALVE Trivial pulmonary valve regurgitation. VESSELS The inferior vena cava is normal in size. PERICARDIUM No pericardial effusion. Manolo Ley MD, FACC (Electronically Signed) Final Date:28 September 2017 14:02
--- NOTE | 2017-09-28 14:09 | HHI.IDPN ---
Subjective Subjective Remarks is a 57-year-old AAF with past medical history significant for diabetes mellitus, hypertension, hyperlipidemia history of urinary retention and recent hospitalization and history of constipation presents to the emergency department at the [facility] where she was seen today. The patient reportedly was febrile when she was seen in clinic. She reports that she has significant constipation with her last bowel movement being yesterday however also reports diarrhea approximately 3 times per day including yesterday. The patient reports that she has been able to urinate intermittently however upon arrival to the emergency department was unable to do so and had lower pelvic pain consistent with her previous urinary retention. She also complains of left-sided flank pain. The patient denies any subjective fever/chills. No shortness of breath or chest pain. No nausea/ vomiting. No lateralizing signs/symptoms. In ED septic workup was initiated, blood cultures are positive and ID consulted for evaluation and Mment of E coli bacteremia and sepsis. Overnight events reviewed No fevers No rash no diarrhea Had BMs after prep. Still feels constipated. Awaiting MRI abdomen Antibiotics Zosyn IV Lines Line sites with no e.o infection Past Medical History reviewed Allergies: Coded Allergies: No Known Allergies (Verified Allergy, Unknown, 09/26/17) Objective . Vital Signs Date Time Temp Pulse Resp B/P (MAP) Pulse Ox O2 Delivery O2 Flow Rate FiO2 09/28/17 04:31 94 09/28/17 04:31 98.0 94 18 115/71 (86) 98 09/28/17 00:31 99.1 108 20 106/66 (79) 98 09/27/17 23:57 109 09/27/17 21:00 106 09/27/17 21:00 99.3 106 20 128/73 (91) 95 09/27/17 18:10 18 09/27/17 16:40 98.8 102 20 123/69 (87) 96 09/27/17 15:40 100 09/28/17 09/28/17 09/29/17 15:00 23:00 07:00 Intake Total 50 ml Balance 50 ml IV Total 50 ml . Laboratory Tests Test 09/28/17 06:58 White Blood Count 10.2 TH/MM3 Red Blood Count 4.02 MIL/MM3 Hemoglobin 8.9 GM/DL Hematocrit 27.6 % Mean Corpuscular Volume 68.8 FL Mean Corpuscular Hemoglobin 22.1 PG Mean Corpuscular Hemoglobin Concent 32.2 % Red Cell Distribution Width 15.8 % Platelet Count 329 TH/MM3 Mean Platelet Volume 8.4 FL Laboratory Tests Test 09/27/17 08:11 09/28/17 06:58 Creatinine 1.29 MG/DL 1.18 MG/DL Estimat Glomerular Filtration Rate 52 ML/MIN 57 ML/MIN Blood Urea Nitrogen 10 MG/DL Random Glucose 209 MG/DL Calcium Level 9.1 MG/DL Sodium Level 138 MEQ/L Potassium Level 4.0 MEQ/L Chloride Level 101 MEQ/L Carbon Dioxide Level 29.3 MEQ/L Anion Gap 8 MEQ/L Iron Level 23 MCG/DL Total Iron Binding Capacity 167 MCG/DL Percent Iron Saturation 13.8 % Ferritin 538 NG/ML Vitamin B12 Level GREATER THAN 2000 PG/ML Microbiology Date/Time Source Procedure Growth Status 09/28/17 12:10 Blood Peripheral Aerobic Blood Culture Pending Received 09/28/17 12:10 Blood Peripheral Anaerobic Blood Culture Pending Received 09/28/17 12:04 Blood Peripheral Aerobic Blood Culture Pending Received 09/28/17 12:04 Blood Peripheral Anaerobic Blood Culture Pending Received 09/26/17 17:45 Blood Peripheral Aerobic Blood Culture - Preliminary NO GROWTH IN 2 DAYS Resulted 09/26/17 17:45 Anaerobic Blood Culture - Preliminary Escherichia Coli Resulted 09/26/17 17:40 Blood Peripheral Aerobic Blood Culture - Preliminary NO GROWTH IN 2 DAYS Resulted 09/26/17 17:40 Anaerobic Blood Culture - Preliminary Escherichia Coli Resulted 09/25/17 18:45 Blood Peripheral Aerobic Blood Culture - Preliminary NO GROWTH IN 3 DAYS Resulted 09/25/17 18:45 Anaerobic Blood Culture - Preliminary Escherichia Coli Multi-Drug Resistant Resulted 09/25/17 18:40 Blood Peripheral Aerobic Blood Culture - Preliminary NO GROWTH IN 3 DAYS Resulted 09/25/17 18:40 Anaerobic Blood Culture - Final Escherichia Coli Resulted 09/25/17 21:00 Urine Catheterized Urine Urine Culture - Preliminary Escherichia Coli Resulted Imaging Last Impressions Pelvis Ultrasound 09/27/17 0000 Signed Impressions: Service Date/Time: August 09:33 - CONCLUSION: Equivocal sonographic appearance of the pelvis Sukhwinder Ayala MD Chest X-Ray 09/25/17 1832 Signed Impressions: Service Date/Time: Monday, September 25, 2017 18:44 - CONCLUSION: No acute disease. Sukhwinder Freeman MD Abdomen/Pelvis CT 09/25/17 0000 Signed Impressions: Service Date/Time: Monday, September 25, 2017 20:04 - CONCLUSION: 1. Bilateral hydronephrosis being worse on the right with hydroureter and distention of the urinary bladder. A bladder outlet obstruction needs to be considered. 2. Left pelvic/adnexal mass. It has a lobulated appearance with cystic and solid components concerning for ovarian neoplasm. 3. Large amount of stool the rectum. Sukhwinder Freeman MD Physical Exam GENERAL: This is a well-nourished, well-developed patient, in no apparent distress. SKIN: No rashes, ecchymoses or lesions. Cool and dry. HEAD: Atraumatic. Normocephalic. No temporal or scalp tenderness. EYES: Pupils equal round and reactive. Extraocular motions intact. No scleral icterus. No injection or drainage. ENT: Nose without bleeding, purulent drainage or septal hematoma. Throat without erythema, tonsillar hypertrophy or exudate. Uvula midline. Airway patent. NECK: Trachea midline. Supple, nontender, no meningeal signs. CARDIOVASCULAR: Regular rate and rhythm without murmurs, gallops, or rubs. RESPIRATORY: Clear to auscultation. Breath sounds equal bilaterally. No wheezes , rales, or rhonchi. GASTROINTESTINAL: Abdomen soft, mildly distended. Obese. Diffuse tenderness. MUSCULOSKELETAL: Extremities without clubbing, cyanosis, or edema. No joint tenderness, effusion, or edema noted. No calf tenderness. Negative Homans sign bilaterally. NEUROLOGICAL: Awake and alert. Non focal Psych cooperative IV line sites with no e.o infection. Assessment & Plan Remarks Sepsis present on admission E.coli bacteremia (CTX-M negative but based on Susceptibility is an ESBL print producer) E.coli UTI: complicated with bilateral hydronephrosis. Ovarian abnormalities: recommend outpatient referral to [facility] administrator. Retention of urine secondary large amount of stool ? ileus. Recs: DC Zosyn Start Ertapenem IV(ASP: ESBL E coli bacteremia) Repeat blood cultures x 2. ECHO negative. Effective therapy started on 09/28/2017. If repeat blood cultures done 24 hours after 09/28/2017 dose are negative will DC on Ertapenem. If these are negative will need CHINTAN and other workup. Follow cultures Follow clinically. covering for me this weekend. Vika Pearson MD Sep 28, 2017 14:09
--- NOTE | 2017-09-28 14:13 | HHI.PR ---
Subjective Remarks Patient reports she is feeling okay. Pain is better. Would like to move around more. Objective Vitals Vital Signs Date Time Temp Pulse Resp B/P (MAP) Pulse Ox O2 Delivery O2 Flow Rate FiO2 09/28/17 04:31 94 09/28/17 04:31 98.0 94 18 115/71 (86) 98 09/28/17 00:31 99.1 108 20 106/66 (79) 98 09/27/17 23:57 109 09/27/17 21:00 106 09/27/17 21:00 99.3 106 20 128/73 (91) 95 09/27/17 18:10 18 09/27/17 16:40 98.8 102 20 123/69 (87) 96 09/27/17 15:40 100 I/O 09/27/17 09/27/17 09/27/17 09/28/17 09/28/17 09/28/17 07:00 15:00 23:00 07:00 15:00 23:00 Intake Total 1720 ml 100 ml 3740 ml 650 ml 50 ml Output Total 1850 ml 5950 ml 3550 ml Balance -130 ml 100 ml -2210 ml -2900 ml 50 ml Intake Oral 480 ml 1440 ml 600 ml IV Total 1240 ml 100 ml 2300 ml 50 ml 50 ml Output Urine Total 1850 ml 5950 ml 3550 ml # Bowel Movements 2 Result Diagram: 09/28/17 0658 09/28/17 0658 Objective Remarks GENERAL: This is a well-nourished, well-developed patient, in no apparent distress. CARDIOVASCULAR: Normal rate and regular rhythm without murmurs, gallops, or rubs. RESPIRATORY: Good respiratory efforts. Breath sounds equal and clear to auscultation bilaterally. GASTROINTESTINAL: Abdomen soft, mild tenderness mostly located on the left lower quadrant. Normal and active bowel sounds. MUSCULOSKELETAL: Extremities without cyanosis, or edema. NEURO: Alert & Oriented x4 to person, place, time, situation. Moves all ext x4 PSYCH: Appropriate mood and affect. A/P Assessment and Plan 57-year-old female with: Severe sepsis Patient febrile, tachycardic with elevated lactic acid and leukocytosis on presentation E. coli UTI/E. coli bacteremia. Blood cultures growing E. coli. Appreciate infectious disease input. Patient switched to Ertapenem. Urinary retention/hydronephrosis/hydroureter CT of the abdomen and pelvis significant for bilateral hydronephrosis right greater than left with hydroureter and distention of the urinary bladder; and sent for bladder obstruction Sheikh placed with 2 L of urine output Patient recently hospitalized and evaluated for similar, though at the time this was secondary to constipation Appreciate urology following who recommended continuing to treat constipation aggressively. Adnexal mass CT of the abdomen/pelvis significant for a left pelvic/adnexal mass that has a lobulated appearance was cystic and solid components concerning for ovarian neoplasm Oncology consulted, TRASHMAN consulted and pelvic ultrasound was ordered. Patient refused pelvic ultrasound. MRI ordered. Follow results. Hypokalemia: -Improved. Continue to monitor Acute kidney injury Likely secondary to urinary retention IV fluid hydration. Improving. Continue Sheikh catheter Monitor renal function Diabetes mellitus Holding home Lantus/metformin Sliding scale insulin Monitor blood glucose Continue Lantus if patient hyperglycemic Hypertension/hyperlipidemia Continue home medications Stage I pressure ulcer Wound care following, appreciate assistance Makayla Talley MD Sep 28, 2017 14:13
[2017-09-28] MEDS ORDERED: ASP: Documented ESBL, MDR A baumannii or P. aeruginosa PRN (14:15)
[2017-09-28] MEDS ORDERED: MISCELLANEOUS PHARMACY INFORMATION XX PRN (14:15)
[2017-09-28] MEDS ORDERED: GADODIAMIDE PF 287 MG/ML 20 ML VIAL (for RAD MRI) IVCONTRAST ONE (15:26)
--- NOTE | 2017-09-28 16:16 | RADRPT ---
EXAM DATE/TIME: 09/28/2017 15:04 [facility] COMPARISON: CT ABDOMEN & PELVIS W CONTRAST, September 05, 2016, 2:34. CT ABDOMEN & PELVIS W/O CONTRAST, September 08 18, 3:23. CT ABDOMEN & PELVIS W/O CONTRAST, September 25, 2017, 20:04. INDICATIONS : Adnexal mass. CONTRAST: 17 cc Omniscan (gadodiamide) IV MEDICAL HISTORY : Hypertension. Diabetes mellitus type 2. SURGICAL HISTORY : Right foot/Left knee. ENCOUNTER: Initial ACUITY: 2 day PAIN SCORE: 3/10 LOCATION: pelvis TECHNIQUE: Multiplanar, multisequence magnetic resonance imaging of the pelvis was performed. FINDINGS: A Sheikh catheter is now present in the urinary bladder which is decompressed. There is persistent mil d hydroureter bilaterally, however this is improved. Looking at the reproductive structures, fibroid uterus is present with masses in the myometrial body in addition to a small exophytic lesion arising from the right fundus which may be a pedunculated fib roid. There are slightly greater than 5 cm parametrial masses bilaterally which are complex and may b e the ovaries involved with a variety of cysts. In addition on the left, a multilobular somewhat tubu lar shaped mixed signal mass is present with maximum dimension approaching 10 cm. This lesion is nota ble for portions which are hemorrhagic in signal in addition to portions which are more simple fluid and signal. A thin fairly uniform wall and thin uniform thickness septations are present. No large do minant solid appearing enhancing component is identified. Elsewhere in the pelvis, the rectum is dilated with stool. The remaining bowel structures are focally unremarkable. There is no evidence of iliac chain or inguinal lymphadenopathy. The bony structures a re grossly benign in appearance. CONCLUSION: Complex bilateral adnexal/parametrial findings in addition to large multilocular hemorrhagic and flui d signal process on the left. This dominant left adnexal process may be hemato-hydrosalpinx. Complica pierce cystic neoplasm would be an additional consideration. Sukhwinder Ayala MD on September 28, 2017 at 15:52 Board Certified Radiologist. This report was verified electronically.
[2017-09-28] MEDS: ERTAPENEM INJ 1,000 MG in SODIUM CHLORIDE 0.9% INJ 100 ML IV SCH (17:00)
[2017-09-28] MEDS ORDERED: PHARMACY ORDERED LAB ONE (19:45)
[2017-09-29] VITALS (25 sets, daily range): BP systolic 137–152; BP diastolic 79–90; PULSE 88–108; RESP 16–20; TEMP 98.1–98.9; O2SAT 94–99
[2017-09-29] MEDS: MORPHINE SULFATE 4 MG/ML INJ IV PUSH PRN ×6 (00:15→22:04)
[2017-09-29] MEDS: SODIUM CHLOR 0.9% 1000 ML INJ 1,000 ML IV SCH ×2 (06:17→16:22)
[2017-09-29 07:24] LABS: HEMATOCRIT 27.6 % (35.0-46.0); HEMOGLOBIN 8.7 GM/DL (11.6-15.3); MEAN CELL VOLUME 68.7 FL (80.0-100.0); MEAN CORPUSCULAR HEMOGLOBIN 21.5 PG (27.0-34.0); MEAN CORPUSCULAR HGB CONC 31.3 % (32.0-36.0); MEAN PLATELET VOLUME 8.4 FL (7.0-11.0); PLATELET COUNT 382 TH/MM3 (150-450); RED BLOOD COUNT 4.02 MIL/MM3 (4.00-5.30); RED CELL DISTRIBUTION WIDTH 16.4 % (11.6-17.2); WHITE BLOOD COUNT 9.1 TH/MM3 (4.0-11.0)
[2017-09-29 07:31] LABS: BICARBONATE 32.5 MEQ/L (21.0-32.0); CALCIUM 9.3 MG/DL (8.5-10.1); CREATININE 1.04 MG/DL (0.50-1.00)
[2017-09-29] MEDS: INSULIN ASPART SUPPLEMENTAL SCALE SQ SCH ×4 (08:00→20:51)
[2017-09-29] MEDS: HYDROCHLOROTHIAZIDE 25 MG TAB PO SCH (08:59)
[2017-09-29] MEDS: LISINOPRIL 5 MG TAB PO SCH (08:59)
[2017-09-29] MEDS: VENLAFAXINE HCL XR 37.5 MG CAP PO SCH (08:59)
[2017-09-29] MEDS: DOCUSATE SODIUM 50 MG/SENNA 8.6 MG TAB PO SCH ×2 (08:59→20:50)
[2017-09-29] MEDS: SODIUM CHLORIDE 0.9% FLUSH 10 ML FLUSH IV FLUSH SCH ×2 (09:00→20:50)
--- NOTE | 2017-09-29 12:07 | HHI.PR ---
Subjective Remarks Patient reports she is feeling okay today. Pain is better controlled. States she is having liquid stool. She is eating okay. Objective Vitals Vital Signs Date Time Temp Pulse Resp B/P (MAP) Pulse Ox O2 Delivery O2 Flow Rate FiO2 09/29/17 10:00 97 09/29/17 09:05 18 09/29/17 08:00 98.2 105 20 152/90 (110) 99 09/29/17 08:00 91 09/29/17 05:00 94 09/29/17 04:15 98.1 96 16 143/84 (103) 97 09/29/17 04:00 96 09/29/17 04:00 102 09/29/17 03:00 92 09/29/17 02:00 94 09/29/17 01:00 94 09/29/17 00:18 98.2 97 16 142/79 (100) 94 09/29/17 00:00 99 09/29/17 00:00 96 09/28/17 23:00 96 09/28/17 22:00 98 09/28/17 21:00 102 09/28/17 20:06 97 16 128/74 (92) 94 09/28/17 20:00 96 09/28/17 20:00 94 09/28/17 16:00 98.4 20 119/82 (94) 95 09/28/17 15:00 110 I/O 09/28/17 09/28/17 09/28/17 09/29/17 09/29/17 09/29/17 07:00 15:00 23:00 07:00 15:00 23:00 Intake Total 650 ml 50 ml 960 ml 1960 ml Output Total 3550 ml 3600 ml 4500 ml 2100 ml Balance -2900 ml 50 ml -2640 ml -2540 ml -2100 ml Intake Oral 600 ml 960 ml 960 ml IV Total 50 ml 50 ml 1000 ml Output Urine Total 3550 ml 3600 ml 4500 ml 2100 ml Result Diagram: 09/29/17 0540 09/29/17 0540 Objective Remarks GENERAL: This is a well-nourished, well-developed patient, in no apparent distress. CARDIOVASCULAR: Normal rate and regular rhythm without murmurs, gallops, or rubs. RESPIRATORY: Good respiratory efforts. Breath sounds equal and clear to auscultation bilaterally. GASTROINTESTINAL: Abdomen soft, mild tenderness mostly located on the left lower quadrant. Normal and active bowel sounds. MUSCULOSKELETAL: Extremities without cyanosis, or edema. NEURO: Alert & Oriented x4 to person, place, time, situation. Moves all ext x4 PSYCH: Appropriate mood and affect. A/P Assessment and Plan 57-year-old female with: Severe sepsis Patient febrile, tachycardic with elevated lactic acid and leukocytosis on presentation E. coli UTI/E. coli bacteremia. Blood cultures growing E. coli. Appreciate infectious disease input. Patient switched to Ertapenem. Continue to follow cultures. Urinary retention/hydronephrosis/hydroureter CT of the abdomen and pelvis significant for bilateral hydronephrosis right greater than left with hydroureter and distention of the urinary bladder; and sent for bladder obstruction Sheikh placed with 2 L of urine output Patient recently hospitalized and evaluated for similar, though at the time this was secondary to constipation Appreciate urology following who recommended continuing to treat constipation aggressively. Adnexal mass CT of the abdomen/pelvis significant for a left pelvic/adnexal mass that has a lobulated appearance was cystic and solid components concerning for ovarian neoplasm Oncology consulted, STOCK ROLLER consulted and pelvic ultrasound was ordered. Patient refused pelvic ultrasound. MRI confirmed complex mass. Further plans per Oncology Hypokalemia: -Improved. Continue to monitor Acute kidney injury Likely secondary to urinary retention IV fluid hydration. Improving. Continue Sheikh catheter Monitor renal function Diabetes mellitus Holding home Lantus/metformin Sliding scale insulin Monitor blood glucose Continue Lantus if patient hyperglycemic Hypertension/hyperlipidemia Continue home medications Stage I pressure ulcer Wound care following, appreciate assistance Makayla Talley MD Sep 29, 2017 12:07
--- NOTE | 2017-09-29 12:33 | PD.ONC.PN ---
Subjective Subjective Remarks Afebrile overnight. Patient resting in bed in nad. she feels a fullness in her abdomen similar to constipation. although she states she has had several watery bowel movements. she otherwise has no complaints. Objective Data Date Time Temp Pulse Resp B/P (MAP) Pulse Ox O2 Delivery O2 Flow Rate FiO2 09/29/17 12:27 98.9 88 16 137/79 (98) 99 09/29/17 10:00 97 09/29/17 09:05 18 09/29/17 08:00 98.2 105 20 152/90 (110) 99 09/29/17 08:00 91 09/29/17 05:00 94 09/29/17 04:15 98.1 96 16 143/84 (103) 97 09/29/17 04:00 96 09/29/17 04:00 102 09/29/17 03:00 92 09/29/17 02:00 94 09/29/17 01:00 94 09/29/17 00:18 98.2 97 16 142/79 (100) 94 09/29/17 00:00 99 09/29/17 00:00 96 09/28/17 23:00 96 09/28/17 22:00 98 09/28/17 21:00 102 09/28/17 20:06 97 16 128/74 (92) 94 09/28/17 20:00 96 09/28/17 20:00 94 09/28/17 16:00 98.4 20 119/82 (94) 95 09/28/17 15:00 110 09/29/17 09/29/17 09/29/17 07:00 15:00 23:00 Intake Total 1960 ml Output Total 4500 ml 2100 ml Balance -2540 ml -2100 ml Result Diagram: 09/29/17 0540 09/29/17 0540 Laboratory Results Laboratory Tests Test 09/29/17 05:40 White Blood Count 9.1 TH/MM3 Red Blood Count 4.02 MIL/MM3 Hemoglobin 8.7 GM/DL Hematocrit 27.6 % Mean Corpuscular Volume 68.7 FL Mean Corpuscular Hemoglobin 21.5 PG Mean Corpuscular Hemoglobin Concent 31.3 % Red Cell Distribution Width 16.4 % Platelet Count 382 TH/MM3 Mean Platelet Volume 8.4 FL Blood Urea Nitrogen 12 MG/DL Creatinine 1.04 MG/DL Random Glucose 236 MG/DL Calcium Level 9.3 MG/DL Sodium Level 141 MEQ/L Potassium Level 4.0 MEQ/L Chloride Level 100 MEQ/L Carbon Dioxide Level 32.5 MEQ/L Anion Gap 9 MEQ/L Estimat Glomerular Filtration Rate 66 ML/MIN Culture Results Microbiology Date/Time Source Procedure Growth Status 09/28/17 12:10 Blood Peripheral Aerobic Blood Culture - Preliminary NO GROWTH IN 1 DAY Resulted 09/28/17 12:10 Blood Peripheral Anaerobic Blood Culture - Preliminary NO GROWTH IN 1 DAY Resulted 09/28/17 12:04 Blood Peripheral Aerobic Blood Culture - Preliminary NO GROWTH IN 1 DAY Resulted 09/28/17 12:04 Blood Peripheral Anaerobic Blood Culture - Preliminary NO GROWTH IN 1 DAY Resulted 09/26/17 17:45 Blood Peripheral Aerobic Blood Culture - Preliminary NO GROWTH IN 3 DAYS Resulted 09/26/17 17:45 Anaerobic Blood Culture - Final Escherichia Coli Resulted 09/26/17 17:40 Blood Peripheral Aerobic Blood Culture - Preliminary NO GROWTH IN 3 DAYS Resulted 09/26/17 17:40 Anaerobic Blood Culture - Final Escherichia Coli Resulted Administered Medications Medications (Trade) Dose Ordered Sig/Elroy Route PRN Reason Start Time Stop Time Status Last Admin Dose Admin Sodium Chloride 1,000 ml @ 100 mls/hr Q10H IV 09/25/17 22:00 09/29/17 06:17 Sodium Chloride (NS Flush) 2 ml BID IV FLUSH 09/26/17 09:00 09/29/17 09:00 Acetaminophen (Tylenol) 650 mg Q4H PRN PO TEMP > 100.4 09/25/17 21:30 09/26/17 00:02 Senna/Docusate Sodium (Debi-Colace) 1 tab BID PO 09/26/17 09:00 09/29/17 08:59 Insulin Aspart (NovoLOG SUPPLEMENTAL SCALE) 1 ACHS SLIDING SCALE SQ 09/25/17 21:45 09/29/17 12:00 Amlodipine Besylate (Norvasc) 10 mg DAILY PO 09/26/17 09:00 09/29/17 08:59 Hydrochlorothiazide (Hydrodiuril) 25 mg DAILY PO 09/26/17 09:00 09/29/17 08:59 Lisinopril (Prinivil) 5 mg DAILY PO 09/26/17 09:00 09/29/17 08:59 Venlafaxine HCl (Effexor Xr) 37.5 mg DAILY PO 09/26/17 09:00 09/29/17 08:59 Morphine Sulfate (Morphine Inj) 4 mg Q3H PRN IV PUSH pain 6-10 09/26/17 01:45 09/29/17 09:00 Ertapenem 1000 mg/ Sodium Chloride 100 ml @ 200 mls/hr Q24H IV 09/28/17 15:00 09/28/17 17:00 Objective Remarks GENERAL: Middle aged female, sitting up in bed in nad. SKIN: Warm and dry. HEAD: Normocephalic. EYES: No injection or drainage. NECK: Supple, trachea midline. CARDIOVASCULAR: Regular rate and rhythm RESPIRATORY: Breath sounds equal bilaterally. No accessory muscle use. GASTROINTESTINAL: Abdomen mildly distended, tender EXTREMITIES: No cyanosis, or edema. MUSCULOSKELETAL: Adequate muscle tone. NEUROLOGICAL: awake and alert. normal speech. moving extremities. Assessment/Plan Problem List: (1) Adnexal mass ICD Codes: N94.9 - Unspecified condition associated with female genital organs and menstrual cycle Status: Acute Plan: --unclear etiology, may need to consult [facility] oncology -- CA 125 not elevated (2) Bilateral hydronephrosis ICD Codes: N13.30 - Unspecified hydronephrosis Plan: --urology following. --creatinine improving. (3) Sepsis ICD Codes: A41.9 - Sepsis, unspecified organism Status: Acute Plan: ---urosepsis --BC + e.coli --on antibiotics per ID (4) Microcytic anemia ICD Codes: D50.9 - Microcytic anemia Status: Chronic Assessment 57-year-old female with large adnexal mass admitted with abdominal pain and urinary retention. history of diabetes, hypertension and hyperlipidemia Plan 1. continue antibiotics. 2. will need to consult [facility] oncology on Sunday when they are asset protection specialist again. patient will likely need exam under anesthesia and biopsy 3. monitor renal function Attending Statement The exam, history, and the medical decision-making described in the above note were completed with the assistance of the mid-level provider. I reviewed and agree with the findings presented. I attest that I had a [id number] encounter with the patient on the same day, and personally performed and documented my assessment and findings in the medical record. Pelvic pain controlled. Await Technical Lead Onc evaluation and biopsy. Management of constipation per primary team. Problem Qualifiers (1) Sepsis: Qualified Codes: A41.9 - Sepsis, unspecified organism Skylar Mariee Sep 29, 2017 12:33 Bashir Han MD Sep 29, 2017 12:36
[2017-09-29] MEDS: MAGNESIUM HYDROXIDE SUSP 30 ML CUP PO PRN (13:22)
[2017-09-29] MEDS: ERTAPENEM INJ 1,000 MG in SODIUM CHLORIDE 0.9% INJ 100 ML IV SCH (16:22)
[2017-09-29] MEDS ORDERED: INSULIN DETEMIR 100 UNITS/ML VIAL SQ SCH (21:00)
[2017-09-30] VITALS (25 sets, daily range): BP systolic 141–162; BP diastolic 75–84; PULSE 86–106; RESP 16–20; TEMP 98.2–98.7; O2SAT 96–100
[2017-09-30] MEDS: MORPHINE SULFATE 4 MG/ML INJ IV PUSH PRN ×6 (02:04→22:23)
[2017-09-30] MEDS: SODIUM CHLOR 0.9% 1000 ML INJ 1,000 ML IV SCH ×2 (02:05→12:06)
[2017-09-30 04:18] LABS: HEMATOCRIT 29.4 % (35.0-46.0); HEMOGLOBIN 9.4 GM/DL (11.6-15.3); MEAN CELL VOLUME 69.3 FL (80.0-100.0); MEAN CORPUSCULAR HEMOGLOBIN 22.2 PG (27.0-34.0); MEAN PLATELET VOLUME 8.1 FL (7.0-11.0); PLATELET COUNT 415 TH/MM3 (150-450); RED BLOOD COUNT 4.25 MIL/MM3 (4.00-5.30); RED CELL DISTRIBUTION WIDTH 15.9 % (11.6-17.2)
[2017-09-30 04:42] LABS: BICARBONATE 33.2 MEQ/L (21.0-32.0); CALCIUM 9.3 MG/DL (8.5-10.1); CREATININE 0.88 MG/DL (0.50-1.00)
[2017-09-30] MEDS: LISINOPRIL 5 MG TAB PO SCH (08:50)
[2017-09-30] MEDS: DOCUSATE SODIUM 50 MG/SENNA 8.6 MG TAB PO SCH ×2 (08:50→20:59)
[2017-09-30] MEDS: VENLAFAXINE HCL XR 37.5 MG CAP PO SCH (08:50)
[2017-09-30] MEDS: HYDROCHLOROTHIAZIDE 25 MG TAB PO SCH (08:51)
--- NOTE | 2017-09-30 08:54 | PD.ONC.PN ---
Subjective Subjective Remarks Afebrile overnight. patient resting in bed. still has occasional pelvic pain. 7550cc UO/24hrs Objective Data Date Time Temp Pulse Resp B/P (MAP) Pulse Ox O2 Delivery O2 Flow Rate FiO2 09/30/17 06:19 20 09/30/17 06:00 92 09/30/17 05:00 86 09/30/17 04:04 93 09/30/17 03:00 98.3 95 20 148/75 (99) 96 09/30/17 03:00 92 09/30/17 02:00 92 09/30/17 01:00 92 09/30/17 00:02 98.2 96 18 162/83 (109) 100 09/30/17 00:01 96 09/29/17 23:00 96 09/29/17 22:00 104 09/29/17 21:00 96 09/29/17 20:04 98 09/29/17 20:00 98.2 97 16 148/81 (103) 98 09/29/17 19:00 96 09/29/17 18:00 108 09/29/17 16:00 106 09/29/17 15:00 94 09/29/17 14:00 98 09/29/17 13:00 98 09/29/17 12:27 98.9 88 16 137/79 (98) 99 09/29/17 12:00 103 09/29/17 11:00 100 09/29/17 10:00 97 09/29/17 09:00 102 09/30/17 09/30/17 09/30/17 07:00 15:00 23:00 Intake Total 1680 ml Output Total 4600 ml Balance -2920 ml Result Diagram: 09/30/17 0349 09/30/17 0349 Laboratory Results Laboratory Tests Test 09/30/17 03:49 White Blood Count 9.0 TH/MM3 Red Blood Count 4.25 MIL/MM3 Hemoglobin 9.4 GM/DL Hematocrit 29.4 % Mean Corpuscular Volume 69.3 FL Mean Corpuscular Hemoglobin 22.2 PG Mean Corpuscular Hemoglobin Concent 32.0 % Red Cell Distribution Width 15.9 % Platelet Count 415 TH/MM3 Mean Platelet Volume 8.1 FL Blood Urea Nitrogen 12 MG/DL Creatinine 0.88 MG/DL Random Glucose 224 MG/DL Calcium Level 9.3 MG/DL Sodium Level 139 MEQ/L Potassium Level 3.6 MEQ/L Chloride Level 99 MEQ/L Carbon Dioxide Level 33.2 MEQ/L Anion Gap 7 MEQ/L Estimat Glomerular Filtration Rate 80 ML/MIN Culture Results Microbiology Date/Time Source Procedure Growth Status 09/28/17 12:10 Blood Peripheral Aerobic Blood Culture - Preliminary NO GROWTH IN 1 DAY Resulted 09/28/17 12:10 Blood Peripheral Anaerobic Blood Culture - Preliminary NO GROWTH IN 1 DAY Resulted 09/28/17 12:04 Blood Peripheral Aerobic Blood Culture - Preliminary NO GROWTH IN 1 DAY Resulted 09/28/17 12:04 Blood Peripheral Anaerobic Blood Culture - Preliminary NO GROWTH IN 1 DAY Resulted Administered Medications Medications (Trade) Dose Ordered Sig/Elroy Route PRN Reason Start Time Stop Time Status Last Admin Dose Admin Sodium Chloride 1,000 ml @ 100 mls/hr Q10H IV 09/25/17 22:00 09/30/17 02:05 Sodium Chloride (NS Flush) 2 ml BID IV FLUSH 09/26/17 09:00 09/29/17 09:00 Acetaminophen (Tylenol) 650 mg Q4H PRN PO TEMP > 100.4 09/25/17 21:30 09/26/17 00:02 Senna/Docusate Sodium (Debi-Colace) 1 tab BID PO 09/26/17 09:00 09/29/17 20:50 Magnesium Hydroxide (Milk Of Magnesia Liq) 30 ml Q12H PRN PO Mild constipation 09/25/17 21:30 09/29/17 13:22 Lactulose (Lactulose Liq) 30 ml DAILY PRN PO SEVERE CONSITIPATION 09/25/17 21:30 09/29/17 20:50 Insulin Aspart (NovoLOG SUPPLEMENTAL SCALE) 1 ACHS SLIDING SCALE SQ 09/25/17 21:45 09/29/17 20:51 Amlodipine Besylate (Norvasc) 10 mg DAILY PO 09/26/17 09:00 09/29/17 08:59 Hydrochlorothiazide (Hydrodiuril) 25 mg DAILY PO 09/26/17 09:00 09/29/17 08:59 Lisinopril (Prinivil) 5 mg DAILY PO 09/26/17 09:00 09/29/17 08:59 Venlafaxine HCl (Effexor Xr) 37.5 mg DAILY PO 09/26/17 09:00 09/29/17 08:59 Morphine Sulfate (Morphine Inj) 4 mg Q3H PRN IV PUSH pain 6-10 09/26/17 01:45 09/30/17 06:14 Ertapenem 1000 mg/ Sodium Chloride 100 ml @ 200 mls/hr Q24H IV 09/28/17 15:00 09/29/17 16:22 Insulin Detemir (Levemir Inj) 25 units HS SQ 09/29/17 21:00 09/29/17 20:51 Objective Remarks GENERAL: Middle aged female, lying in bed in nad. SKIN: Warm and dry. HEAD: Normocephalic. EYES: No injection or drainage. NECK: Supple, trachea midline. CARDIOVASCULAR: Regular rate and rhythm RESPIRATORY: Breath sounds equal bilaterally. No accessory muscle use. GASTROINTESTINAL: Abdomen with suprapubic tenderness. EXTREMITIES: No cyanosis, or edema. MUSCULOSKELETAL: Adequate muscle tone. NEUROLOGICAL: no obvious focal deficit. Assessment/Plan Problem List: (1) Adnexal mass ICD Codes: N94.9 - Unspecified condition associated with female genital organs and menstrual cycle Status: Acute Plan: --unclear etiology, CARD MOUNTER is following and plan is to consult C[facility] MOUN[facility] oncology on Sunday. -- CA 125 not elevated (2) Bilateral hydronephrosis ICD Codes: N13.30 - Unspecified hydronephrosis Plan: --urology following. --creatinine improving. (3) Sepsis ICD Codes: A41.9 - Sepsis, unspecified organism Status: Acute Plan: ---urosepsis --BC + e.coli --on antibiotics per ID (4) Microcytic anemia ICD Codes: D50.9 - Microcytic anemia Status: Chronic Assessment 57-year-old female with large adnexal mass admitted with abdominal pain and urinary retention. history of diabetes, hypertension and hyperlipidemia Plan 1. monitor labs 2. continue antibiotics. 3. consult [facility] oncology on Sunday. Attending Statement The exam, history, and the medical decision-making described in the above note were completed with the assistance of the mid-level provider. I reviewed and agree with the findings presented. I attest that I had a [id number] encounter with the patient on the same day, and personally performed and documented my assessment and findings in the medical record. Pelvic pain better. Counts stable. Continue abx. Await Field Clerk onc eval tomorrow. Problem Qualifiers (1) Sepsis: Qualified Codes: A41.9 - Sepsis, unspecified organism Skylar Mariee Sep 30, 2017 08:54 Bashir Han MD Sep 30, 2017 11:20
[2017-09-30] MEDS: SODIUM CHLORIDE 0.9% FLUSH 10 ML FLUSH IV FLUSH SCH ×2 (09:00→20:59)
[2017-09-30] MEDS: INSULIN ASPART SUPPLEMENTAL SCALE SQ SCH ×4 (09:09→20:58)
--- NOTE | 2017-09-30 10:03 | HHI.PR ---
Subjective Remarks Patient reports she is feeling okay. Left flank pain is better controlled. Objective Vitals Vital Signs Date Time Temp Pulse Resp B/P (MAP) Pulse Ox O2 Delivery O2 Flow Rate FiO2 09/30/17 06:19 20 09/30/17 06:00 92 09/30/17 05:00 86 09/30/17 04:04 93 09/30/17 03:00 98.3 95 20 148/75 (99) 96 09/30/17 03:00 92 09/30/17 02:00 92 09/30/17 01:00 92 09/30/17 00:02 98.2 96 18 162/83 (109) 100 09/30/17 00:01 96 09/29/17 23:00 96 09/29/17 22:00 104 09/29/17 21:00 96 09/29/17 20:04 98 09/29/17 20:00 98.2 97 16 148/81 (103) 98 09/29/17 19:00 96 09/29/17 18:00 108 09/29/17 16:00 106 09/29/17 15:00 94 09/29/17 14:00 98 09/29/17 13:00 98 09/29/17 12:27 98.9 88 16 137/79 (98) 99 09/29/17 12:00 103 09/29/17 11:00 100 I/O 09/29/17 09/29/17 09/29/17 09/30/17 09/30/17 09/30/17 07:00 15:00 23:00 07:00 15:00 23:00 Intake Total 1960 ml 900 ml 1680 ml Output Total 4500 ml 2100 ml 850 ml 4600 ml Balance -2540 ml -2100 ml 50 ml -2920 ml Intake Oral 960 ml 900 ml 1680 ml IV Total 1000 ml Output Urine Total 4500 ml 2100 ml 850 ml 4600 ml Result Diagram: 09/30/17 0349 09/30/17 0349 Objective Remarks GENERAL: This is a well-nourished, well-developed patient, in no apparent distress. CARDIOVASCULAR: Normal rate and regular rhythm without murmurs, gallops, or rubs. RESPIRATORY: Good respiratory efforts. Breath sounds equal and clear to auscultation bilaterally. GASTROINTESTINAL: Abdomen soft, mild tenderness mostly located on the left lower quadrant. Normal and active bowel sounds. MUSCULOSKELETAL: Extremities without cyanosis, or edema. NEURO: Alert & Oriented x4 to person, place, time, situation. Moves all ext x4 PSYCH: Appropriate mood and affect. A/P Assessment and Plan 57-year-old female with: Severe sepsis Patient febrile, tachycardic with elevated lactic acid and leukocytosis on presentation E. coli UTI/E. coli bacteremia. Blood cultures growing E. coli. Appreciate infectious disease input. Patient switched to Ertapenem. Continue to follow cultures. Urinary retention/hydronephrosis/hydroureter CT of the abdomen and pelvis significant for bilateral hydronephrosis right greater than left with hydroureter and distention of the urinary bladder; and sent for bladder obstruction Sheikh placed with 2 L of urine output Patient recently hospitalized and evaluated for similar, though at the time this was secondary to constipation Appreciate urology following who recommended continuing to treat constipation aggressively. Constipation resolved. Voiding trial planned. However will await evaluation by CODE ENFORCEMENT OFFICER oncology in case surgical intervention is indicated. Adnexal mass CT of the abdomen/pelvis significant for a left pelvic/adnexal mass that has a lobulated appearance was cystic and solid components concerning for ovarian neoplasm Oncology consulted, MOBILE APPLICATION DEVELOPER consulted and pelvic ultrasound was ordered. Patient refused pelvic ultrasound. MRI confirmed complex mass. Further plans per Oncology Acute kidney injury: Resolved. Likely secondary to urinary retention Continue Sheikh catheter Monitor renal function Diabetes mellitus Resume Levemir. Increase dose to 30 units nightly Sliding scale insulin Monitor blood glucose Hypertension/hyperlipidemia Continue home medications Stage I pressure ulcer Wound care following, appreciate assistance Makayla Talley MD Sep 30, 2017 10:03
[2017-09-30] MEDS: ERTAPENEM INJ 1,000 MG in SODIUM CHLORIDE 0.9% INJ 100 ML IV SCH (17:13)
[2017-09-30] MEDS ORDERED: INSULIN DETEMIR 100 UNITS/ML VIAL SQ SCH (21:00)
[2017-10-01] VITALS (16 sets, daily range): BP systolic 101–147; BP diastolic 74–87; PULSE 92–112; RESP 16–20; TEMP 98.4–98.8; O2SAT 95–100
[2017-10-01] MEDS: MORPHINE SULFATE 4 MG/ML INJ IV PUSH PRN ×3 (02:22→10:52)
[2017-10-01] MEDS: MAGNESIUM HYDROXIDE SUSP 30 ML CUP PO PRN (06:47)
[2017-10-01 07:45] LABS: HEMATOCRIT 30.9 % (35.0-46.0); HEMOGLOBIN 9.8 GM/DL (11.6-15.3); MEAN CELL VOLUME 69.2 FL (80.0-100.0); MEAN CORPUSCULAR HGB CONC 31.7 % (32.0-36.0); MEAN PLATELET VOLUME 7.9 FL (7.0-11.0); PLATELET COUNT 461 TH/MM3 (150-450); RED BLOOD COUNT 4.47 MIL/MM3 (4.00-5.30)
[2017-10-01 07:52] LABS: BICARBONATE 32.4 MEQ/L (21.0-32.0); CALCIUM 9.4 MG/DL (8.5-10.1); CREATININE 0.96 MG/DL (0.50-1.00)
[2017-10-01] MEDS: HYDROCHLOROTHIAZIDE 25 MG TAB PO SCH (09:38)
[2017-10-01] MEDS: VENLAFAXINE HCL XR 37.5 MG CAP PO SCH (09:38)
[2017-10-01] MEDS: LISINOPRIL 5 MG TAB PO SCH (09:39)
[2017-10-01] MEDS: DOCUSATE SODIUM 50 MG/SENNA 8.6 MG TAB PO SCH ×2 (09:39→21:04)
[2017-10-01] MEDS: INSULIN ASPART SUPPLEMENTAL SCALE SQ SCH ×4 (09:40→21:13)
[2017-10-01] MEDS: SODIUM CHLORIDE 0.9% FLUSH 10 ML FLUSH IV FLUSH SCH ×2 (10:52→21:04)
--- NOTE | 2017-10-01 11:18 | HHI.IDPN ---
Subjective Subjective Remarks is a 57-year-old AAF with past medical history significant for diabetes mellitus, hypertension, hyperlipidemia history of urinary retention and recent hospitalization and history of constipation presents to the emergency department at the [facility] where she was seen today. The patient reportedly was febrile when she was seen in clinic. She reports that she has significant constipation with her last bowel movement being yesterday however also reports diarrhea approximately 3 times per day including yesterday. The patient reports that she has been able to urinate intermittently however upon arrival to the emergency department was unable to do so and had lower pelvic pain consistent with her previous urinary retention. She also complains of left-sided flank pain. The patient denies any subjective fever/chills. No shortness of breath or chest pain. No nausea/ vomiting. No lateralizing signs/symptoms. In ED septic workup was initiated, blood cultures are positive and ID consulted for evaluation and Mment of E coli bacteremia and sepsis. Overnight events reviewed No fevers No rash no diarrhea\ Still complains of abdominal pain on left side. Awaiting Cardiac/Vascular Sonographer consult and plan. BCX repeat after Ertapenem started negative at 3 days. Antibiotics Ertapenem IV Lines Line sites with no e.o infection Past Medical History reviewed Allergies: Coded Allergies: No Known Allergies (Verified Allergy, Unknown, 09/26/17) Objective . Vital Signs Date Time Temp Pulse Resp B/P (MAP) Pulse Ox O2 Delivery O2 Flow Rate FiO2 10/01/17 08:51 98.6 98 20 101/77 (85) 100 10/01/17 07:00 92 10/01/17 06:49 16 10/01/17 06:00 92 10/01/17 05:00 98 10/01/17 04:04 100 10/01/17 04:00 98.4 98 18 131/74 (93) 95 10/01/17 03:00 98 10/01/17 02:00 96 10/01/17 01:00 96 10/01/17 00:13 98.8 96 16 147/83 (104) 97 10/01/17 00:06 92 09/30/17 23:00 96 09/30/17 22:00 106 09/30/17 21:00 94 09/30/17 20:54 98.2 98 16 141/84 (103) 97 09/30/17 20:15 96 09/30/17 19:00 102 09/30/17 17:00 88 09/30/17 15:00 96 09/30/17 14:00 104 09/30/17 13:05 98.7 94 16 145/77 (99) 98 09/30/17 13:00 88 09/30/17 12:00 92 . Laboratory Tests Test 09/30/17 03:49 10/01/17 05:40 White Blood Count 9.0 TH/MM3 10.0 TH/MM3 Red Blood Count 4.25 MIL/MM3 4.47 MIL/MM3 Hemoglobin 9.4 GM/DL 9.8 GM/DL Hematocrit 29.4 % 30.9 % Mean Corpuscular Volume 69.3 FL 69.2 FL Mean Corpuscular Hemoglobin 22.2 PG 22.0 PG Mean Corpuscular Hemoglobin Concent 32.0 % 31.7 % Red Cell Distribution Width 15.9 % 16.0 % Platelet Count 415 TH/MM3 461 TH/MM3 Mean Platelet Volume 8.1 FL 7.9 FL Laboratory Tests Test 09/30/17 03:49 10/01/17 05:40 Blood Urea Nitrogen 12 MG/DL 13 MG/DL Creatinine 0.88 MG/DL 0.96 MG/DL Random Glucose 224 MG/DL 225 MG/DL Calcium Level 9.3 MG/DL 9.4 MG/DL Sodium Level 139 MEQ/L 139 MEQ/L Potassium Level 3.6 MEQ/L 3.8 MEQ/L Chloride Level 99 MEQ/L 99 MEQ/L Carbon Dioxide Level 33.2 MEQ/L 32.4 MEQ/L Anion Gap 7 MEQ/L 8 MEQ/L Estimat Glomerular Filtration Rate 80 ML/MIN 72 ML/MIN Microbiology Date/Time Source Procedure Growth Status 09/28/17 12:10 Blood Peripheral Aerobic Blood Culture - Preliminary NO GROWTH IN 3 DAYS Resulted 09/28/17 12:10 Blood Peripheral Anaerobic Blood Culture - Preliminary NO GROWTH IN 3 DAYS Resulted 09/28/17 12:04 Blood Peripheral Aerobic Blood Culture - Preliminary NO GROWTH IN 3 DAYS Resulted 09/28/17 12:04 Blood Peripheral Anaerobic Blood Culture - Preliminary NO GROWTH IN 3 DAYS Resulted Imaging Last Impressions Pelvis Ultrasound 09/27/17 0000 Signed Impressions: Service Date/Time: August 09:33 - CONCLUSION: Equivocal sonographic appearance of the pelvis Sukhwinder Ayala MD Chest X-Ray 09/25/17 1832 Signed Impressions: Service Date/Time: Monday, September 25, 2017 18:44 - CONCLUSION: No acute disease. Sukhwinder Freeman MD Abdomen/Pelvis CT 09/25/17 0000 Signed Impressions: Service Date/Time: Monday, September 25, 2017 20:04 - CONCLUSION: 1. Bilateral hydronephrosis being worse on the right with hydroureter and distention of the urinary bladder. A bladder outlet obstruction needs to be considered. 2. Left pelvic/adnexal mass. It has a lobulated appearance with cystic and solid components concerning for ovarian neoplasm. 3. Large amount of stool the rectum. Sukhwinder Freeman MD Physical Exam GENERAL: This is a well-nourished, well-developed patient, in no apparent distress. SKIN: No rashes, ecchymoses or lesions. Cool and dry. HEAD: Atraumatic. Normocephalic. No temporal or scalp tenderness. EYES: Pupils equal round and reactive. Extraocular motions intact. No scleral icterus. No injection or drainage. ENT: Nose without bleeding, purulent drainage or septal hematoma. Throat without erythema, tonsillar hypertrophy or exudate. Uvula midline. Airway patent. NECK: Trachea midline. Supple, nontender, no meningeal signs. CARDIOVASCULAR: Regular rate and rhythm without murmurs, gallops, or rubs. RESPIRATORY: Clear to auscultation. Breath sounds equal bilaterally. No wheezes , rales, or rhonchi. GASTROINTESTINAL: Abdomen soft, mildly distended. Obese. Diffuse tenderness. MUSCULOSKELETAL: Extremities without clubbing, cyanosis, or edema. No joint tenderness, effusion, or edema noted. No calf tenderness. Negative Homans sign bilaterally. NEUROLOGICAL: Awake and alert. Non focal Psych cooperative IV line sites with no e.o infection. Assessment & Plan Remarks Sepsis present on admission E.coli bacteremia (CTX-M negative but based on Susceptibility is an ESBL egg producer) E.coli UTI: complicated with bilateral hydronephrosis. Ovarian abnormalities: recommend outpatient referral to video production engineer. Retention of urine secondary large amount of stool ? ileus. Recs: Continue Ertapenem IV(ASP: ESBL E coli bacteremia) started on 09/28/17. Plan on 2 weeks. Repeat blood cultures negative after Ertapenem IV started. ECHO negative. Follow cultures Follow clinically. dw Dr.Rimpel rivera cleared by other consultants to call me for ID discharge recommendations. No PICC till cleared by ID. Will follow prn in the interim. Please call sooner if any change in clinical condition or questions. Vika Pearson MD Oct 01, 2017 11:18
--- NOTE | 2017-10-01 12:03 | HHI.PR ---
Subjective Remarks Patient reports constipation again this morning. She reports left flank pain is better. She states she has not had a bowel movement for the past few days. States she is not eating because she does not like the hospital food. Objective Vitals Vital Signs Date Time Temp Pulse Resp B/P (MAP) Pulse Ox O2 Delivery O2 Flow Rate FiO2 10/01/17 08:51 98.6 98 20 101/77 (85) 100 10/01/17 07:00 92 10/01/17 06:49 16 10/01/17 06:00 92 10/01/17 05:00 98 10/01/17 04:04 100 10/01/17 04:00 98.4 98 18 131/74 (93) 95 10/01/17 03:00 98 10/01/17 02:00 96 10/01/17 01:00 96 10/01/17 00:13 98.8 96 16 147/83 (104) 97 10/01/17 00:06 92 09/30/17 23:00 96 09/30/17 22:00 106 09/30/17 21:00 94 09/30/17 20:54 98.2 98 16 141/84 (103) 97 09/30/17 20:15 96 09/30/17 19:00 102 09/30/17 17:00 88 09/30/17 15:00 96 09/30/17 14:00 104 09/30/17 13:05 98.7 94 16 145/77 (99) 98 09/30/17 13:00 88 I/O 09/30/17 09/30/17 09/30/17 10/01/17 10/01/17 10/01/17 07:00 15:00 23:00 07:00 15:00 23:00 Intake Total 1680 ml 948 ml 480 ml Output Total 4600 ml 975 ml 4300 ml 2600 ml Balance -2920 ml -975 ml -3352 ml -2120 ml Intake Oral 1680 ml 948 ml 480 ml Output Urine Total 4600 ml 975 ml 4300 ml 2600 ml Result Diagram: 10/01/17 0540 10/01/17 0540 Objective Remarks GENERAL: This is a well-nourished, well-developed patient, in no apparent distress. CARDIOVASCULAR: Normal rate and regular rhythm without murmurs, gallops, or rubs. RESPIRATORY: Good respiratory efforts. Breath sounds equal and clear to auscultation bilaterally. GASTROINTESTINAL: Abdomen soft, mild tenderness mostly located on the left lower quadrant. Normal and active bowel sounds. MUSCULOSKELETAL: Extremities without cyanosis, or edema. NEURO: Alert & Oriented x4 to person, place, time, situation. Moves all ext x4 PSYCH: Appropriate mood and affect. A/P Assessment and Plan 57-year-old female with: Severe sepsis Patient febrile, tachycardic with elevated lactic acid and leukocytosis on presentation E. coli UTI/E. coli bacteremia. Blood cultures growing E. coli. Appreciate infectious disease input. Patient switched to Ertapenem. Continue to follow cultures. Repeat blood cultures so far negative. Urinary retention/hydronephrosis/hydroureter CT of the abdomen and pelvis significant for bilateral hydronephrosis right greater than left with hydroureter and distention of the urinary bladder; and sent for bladder obstruction Sheikh placed with 2 L of urine output Patient recently hospitalized and evaluated for similar, though at the time this was secondary to constipation Appreciate urology following who recommended continuing to treat constipation aggressively. Constipation resolved the patient is reporting constipation again. Obtain abdominal film to rule out constipation. We will schedule lactulose. Voiding trial per Urology. Adnexal mass CT of the abdomen/pelvis significant for a left pelvic/adnexal mass that has a lobulated appearance was cystic and solid components concerning for ovarian neoplasm Oncology consulted, FENCE ERECTOR SUPERVISOR consulted and pelvic ultrasound was ordered. Patient refused pelvic ultrasound. MRI confirmed complex mass. Further plans per Oncology Acute kidney injury: Resolved. Likely secondary to urinary retention Continue Sheikh catheter Monitor renal function Diabetes mellitus Continue Levemir. 35 units nightly Sliding scale insulin Monitor blood glucose Hypertension/hyperlipidemia Continue home medications Stage I pressure ulcer Wound care following, appreciate assistance Makayla Talley MD Oct 01, 2017 12:03
--- NOTE | 2017-10-01 13:09 | HHI.PR ---
Subjective Patient symptoms today Pt seen and examined. Pt is moving bowels and stools are loose. Objective Vital Signs Vital Signs Date Time Temp Pulse Resp B/P (MAP) Pulse Ox O2 Delivery O2 Flow Rate FiO2 10/01/17 08:51 98.6 98 20 101/77 (85) 100 10/01/17 07:00 92 10/01/17 06:49 16 10/01/17 06:00 92 10/01/17 05:00 98 10/01/17 04:04 100 10/01/17 04:00 98.4 98 18 131/74 (93) 95 10/01/17 03:00 98 10/01/17 02:00 96 10/01/17 01:00 96 10/01/17 00:13 98.8 96 16 147/83 (104) 97 10/01/17 00:06 92 09/30/17 23:00 96 09/30/17 22:00 106 09/30/17 21:00 94 09/30/17 20:54 98.2 98 16 141/84 (103) 97 09/30/17 20:15 96 09/30/17 19:00 102 09/30/17 17:00 88 09/30/17 15:00 96 09/30/17 14:00 104 Intake & Output 10/01/17 10/01/17 07:00 19:00 Intake Total 1428 ml Output Total 6900 ml Balance -5472 ml Intake Oral 1428 ml Output Urine Total 6900 ml Result Diagram: 10/01/17 0540 10/01/17 0540 Objective Remarks Abd:soft,nt,nd Sheikh with clear urine. 10/01 Abd:soft,nt,nd Sheikh with clear urine. Medications and IVs Current Medications Medications (Trade) Dose Ordered Sig/Elroy Route Start Time Stop Time Status Last Admin (NS Flush) 2 ml UNSCH PRN IV FLUSH 09/25/17 21:30 (NS Flush) 2 ml BID IV FLUSH 09/26/17 09:00 10/01/17 10:52 (Tylenol) 650 mg Q4H PRN PO 09/25/17 21:30 09/26/17 00:02 (Zofran Inj) 4 mg Q6H PRN IVP 09/25/17 21:30 (Narcan Inj) 0.4 mg UNSCH PRN IV PUSH 09/25/17 21:30 (Debi-Colace) 1 tab BID PO 09/26/17 09:00 10/01/17 09:39 (Milk Of Magnesia Liq) 30 ml Q12H PRN PO 09/25/17 21:30 10/01/17 06:47 (Senokot) 17.2 mg Q12H PRN PO 09/25/17 21:30 (Dulcolax Supp) 10 mg DAILY PRN RECTAL 09/25/17 21:30 (Lactulose Liq) 30 ml DAILY PRN PO 09/25/17 21:30 09/29/17 20:50 (D50w (Vial) Inj) 50 ml UNSCH PRN IV PUSH 09/25/17 21:30 (Glucagon Inj) 1 mg UNSCH PRN OTHER 09/25/17 21:30 (NovoLOG SUPPLEMENTAL SCALE) 1 ACHS SLIDING SCALE SQ 09/25/17 21:45 10/01/17 09:40 (Norvasc) 10 mg DAILY PO 09/26/17 09:00 10/01/17 09:39 (Hydrodiuril) 25 mg DAILY PO 09/26/17 09:00 10/01/17 09:38 (Prinivil) 5 mg DAILY PO 09/26/17 09:00 10/01/17 09:39 (Effexor Xr) 37.5 mg DAILY PO 09/26/17 09:00 10/01/17 09:38 (Ambien) 5 mg HS PRN PO 09/25/17 21:45 (Morphine Inj) 4 mg Q3H PRN IV PUSH 09/26/17 01:45 10/01/17 10:52 (Fleets Enema (Adult)) 133 ml UNSCH PRN RECTAL 09/26/17 09:00 Ertapenem 1000 mg/ Sodium Chloride 100 ml @ 200 mls/hr Q24H IV 09/28/17 15:00 09/30/17 17:13 (Levemir Inj) 30 units HS SQ 09/30/17 21:00 09/30/17 20:58 (Lactulose Liq) 30 ml DAILY PO 10/02/17 09:00 Assessment and Plan Assessment and Plan 57 y.o female with constipation and DM causing urinary retention Continue Maria De Jesus till BM's have resolved. Void trial on the following morning at 6AM after constipation has been cleared. 10/01 57 y.o female with constipation and DM causing urinary retention Void trial in AM Fei narcotics Pt will need bowel regiment upon discharge to prevent constipation Jose Guadalupe Hernandez DO Oct 01, 2017 13:09
[2017-10-01] MEDS: ERTAPENEM INJ 1,000 MG in SODIUM CHLORIDE 0.9% INJ 100 ML IV SCH (14:34)
[2017-10-01] MEDS ORDERED: ACETAMINOPHEN/HYDROcodone 325 MG/5 MG TAB PO PRN (15:00)
--- NOTE | 2017-10-01 15:34 | RADRPT ---
EXAM DATE/TIME: 10/01/2017 15:24 [place] COMPARISON: ABDOMEN KUB ONLY, September 12, 2017, 6:12. INDICATIONS : Abdominal distention. MEDICAL HISTORY : Hypertension. Ulcer. Diabetes. SURGICAL HISTORY : Right foot/Left knee. ENCOUNTER: Initial ACUITY: 1 day PAIN SCORE: 5/10 LOCATION: abdomen. FINDINGS: Supine view of the abdomen was performed. The abdominal bowel gas pattern is normal. No abnormal ma sses, calcifications, or organomegaly is seen. The osseous structures are unremarkable. CONCLUSION: No evidence of obstruction. Amrik Gonzalez MD on October 01, 2017 at 15:31 Board Certified Radiologist. This report was verified electronically.
[2017-10-01] MEDS: traMADol HCL 50 MG TAB PO PRN ×2 (15:42→21:05)
[2017-10-01] MEDS ORDERED: INSULIN DETEMIR 100 UNITS/ML VIAL SQ SCH (21:00)
[2017-10-02] VITALS (8 sets, daily range): BP systolic 134–158; BP diastolic 64–89; PULSE 97–107; RESP 16–20; TEMP 97.8–98.5; O2SAT 98–99
[2017-10-02] MEDS: traMADol HCL 50 MG TAB PO PRN (06:18)
[2017-10-02 06:51] LABS: HEMATOCRIT 32.9 % (35.0-46.0); HEMOGLOBIN 10.5 GM/DL (11.6-15.3); MEAN CELL VOLUME 68.9 FL (80.0-100.0); MEAN PLATELET VOLUME 7.7 FL (7.0-11.0); PLATELET COUNT 519 TH/MM3 (150-450); RED BLOOD COUNT 4.77 MIL/MM3 (4.00-5.30); RED CELL DISTRIBUTION WIDTH 16.1 % (11.6-17.2); WHITE BLOOD COUNT 10.8 TH/MM3 (4.0-11.0)
[2017-10-02 07:14] LABS: BICARBONATE 34.2 MEQ/L (21.0-32.0); CREATININE 0.89 MG/DL (0.50-1.00)
[2017-10-02] MEDS ORDERED: LACTULOSE SYRUP 20 GM/30 ML CUP PO SCH (09:00)
[2017-10-02] MEDS: SODIUM CHLORIDE 0.9% FLUSH 10 ML FLUSH IV FLUSH SCH (09:35)
[2017-10-02] MEDS: HYDROCHLOROTHIAZIDE 25 MG TAB PO SCH (09:35)
[2017-10-02] MEDS: INSULIN ASPART SUPPLEMENTAL SCALE SQ SCH ×3 (09:35→16:16)
[2017-10-02] MEDS: LISINOPRIL 5 MG TAB PO SCH (09:35)
[2017-10-02] MEDS: DOCUSATE SODIUM 50 MG/SENNA 8.6 MG TAB PO SCH (09:35)
[2017-10-02] MEDS: VENLAFAXINE HCL XR 37.5 MG CAP PO SCH (09:35)
--- NOTE | 2017-10-02 09:35 | HHI.PR ---
Subjective Patient symptoms today Pt seen and examined. Sheikh out. States she has not voided as of yet. Objective Vital Signs Vital Signs Date Time Temp Pulse Resp B/P (MAP) Pulse Ox O2 Delivery O2 Flow Rate FiO2 10/02/17 06:15 97.8 107 18 158/89 (112) 99 10/02/17 04:00 97 10/02/17 00:39 98.5 100 16 139/64 (89) 98 10/02/17 00:00 97 10/01/17 20:00 95 10/01/17 18:07 98.7 98 20 130/87 (101) 98 10/01/17 17:38 103 10/01/17 12:45 112 Intake & Output 10/02/17 10/02/17 07:00 19:00 Intake Total 480 ml Output Total 3900 ml Balance -3420 ml Intake Oral 480 ml Output Urine Total 3900 ml Result Diagram: 10/02/1762110/02/17621 Objective Remarks Abd:soft,nt,nd Sheikh with clear urine. 10/01 Abd:soft,nt,nd Sheikh with clear urine. 10/02 Abd:soft,nt,nd Medications and IVs Current Medications Medications (Trade) Dose Ordered Sig/Elroy Route Start Time Stop Time Status Last Admin (NS Flush) 2 ml UNSCH PRN IV FLUSH 09/25/17 21:30 (NS Flush) 2 ml BID IV FLUSH 09/26/17 09:00 10/01/17 21:04 (Tylenol) 650 mg Q4H PRN PO 09/25/17 21:30 09/26/17 00:02 (Zofran Inj) 4 mg Q6H PRN IVP 09/25/17 21:30 (Narcan Inj) 0.4 mg UNSCH PRN IV PUSH 09/25/17 21:30 (Debi-Colace) 1 tab BID PO 09/26/17 09:00 10/01/17 09:39 (Milk Of Magnesia Liq) 30 ml Q12H PRN PO 09/25/17 21:30 10/01/17 06:47 (Senokot) 17.2 mg Q12H PRN PO 09/25/17 21:30 (Dulcolax Supp) 10 mg DAILY PRN RECTAL 09/25/17 21:30 (Lactulose Liq) 30 ml DAILY PRN PO 09/25/17 21:30 09/29/17 20:50 (D50w (Vial) Inj) 50 ml UNSCH PRN IV PUSH 09/25/17 21:30 (Glucagon Inj) 1 mg UNSCH PRN OTHER 09/25/17 21:30 (NovoLOG SUPPLEMENTAL SCALE) 1 ACHS SLIDING SCALE SQ 09/25/17 21:45 10/01/17 21:13 (Norvasc) 10 mg DAILY PO 09/26/17 09:00 10/01/17 09:39 (Hydrodiuril) 25 mg DAILY PO 09/26/17 09:00 10/01/17 09:38 (Prinivil) 5 mg DAILY PO 09/26/17 09:00 10/01/17 09:39 (Effexor Xr) 37.5 mg DAILY PO 09/26/17 09:00 10/01/17 09:38 (Ambien) 5 mg HS PRN PO 09/25/17 21:45 (Fleets Enema (Adult)) 133 ml UNSCH PRN RECTAL 09/26/17 09:00 Ertapenem 1000 mg/ Sodium Chloride 100 ml @ 200 mls/hr Q24H IV 09/28/17 15:00 10/01/17 14:34 (Lactulose Liq) 30 ml DAILY PO 10/02/17 09:00 (Ultram) 50 mg Q4H PRN PO 10/01/17 15:00 10/02/17 06:18 (Ellery 5-325 Mg) 1 tab Q4H PRN PO 10/01/17 15:00 (Levemir Inj) 35 units HS SQ 10/01/17 21:00 10/01/17 21:05 Assessment and Plan Assessment and Plan 57 y.o female with constipation and DM causing urinary retention Continue Maria De Jesus till BM's have resolved. Void trial on the following morning at 6AM after constipation has been cleared. 10/01 57 y.o female with constipation and DM causing urinary retention Void trial in AM We[facility] narcotics Pt will need bowel regiment upon discharge to prevent constipation 10/02 57 y.o female with constipation and DM causing urinary retention Void trial today and check PVR's/ Urocholine started to help with voiding. Jose Guadalupe Hernandez DO Oct 02, 2017 09:35
[2017-10-02] MEDS: BETHANECHOL CHL 25 MG TAB PO SCH ×2 (11:02→13:00)
--- NOTE | 2017-10-02 13:48 | PD.ONC.PN ---
Subjective Subjective Remarks Afebrile overnight. Late entry, patient seen at 8AM. she states she is tired of being in the hospital. she wants to go home. she requests some apple juice. Objective Data Date Time Temp Pulse Resp B/P (MAP) Pulse Ox O2 Delivery O2 Flow Rate FiO2 10/02/17 12:00 98.1 102 20 134/71 (92) 98 10/02/17 08:00 98.3 100 20 137/82 (100) 98 10/02/17 06:15 97.8 107 18 158/89 (112) 99 10/02/17 04:00 97 10/02/17 00:39 98.5 100 16 139/64 (89) 98 10/02/17 00:00 97 10/01/17 20:00 95 10/01/17 18:07 98.7 98 20 130/87 (101) 98 10/01/17 17:38 103 10/02/17 10/02/17 10/02/17 07:00 15:00 23:00 Intake Total 480 ml Output Total 2450 ml Balance -1970 ml Result Diagram: 10/02/17 0622 10/02/17 0622 Laboratory Results Laboratory Tests Test 10/02/17 06:22 White Blood Count 10.8 TH/MM3 Red Blood Count 4.77 MIL/MM3 Hemoglobin 10.5 GM/DL Hematocrit 32.9 % Mean Corpuscular Volume 68.9 FL Mean Corpuscular Hemoglobin 22.0 PG Mean Corpuscular Hemoglobin Concent 32.0 % Red Cell Distribution Width 16.1 % Platelet Count 519 TH/MM3 Mean Platelet Volume 7.7 FL Blood Urea Nitrogen 17 MG/DL Creatinine 0.89 MG/DL Random Glucose 195 MG/DL Calcium Level 10.0 MG/DL Sodium Level 137 MEQ/L Potassium Level 4.3 MEQ/L Chloride Level 97 MEQ/L Carbon Dioxide Level 34.2 MEQ/L Anion Gap 6 MEQ/L Estimat Glomerular Filtration Rate 79 ML/MIN Culture Results Microbiology Date/Time Source Procedure Growth Status 10/01/17 21:21 Stool Stool Stool Occult Blood (AILYN) - Final HEMOCCULT NEGATIVE Complete Administered Medications Medications (Trade) Dose Ordered Sig/Elroy Route PRN Reason Start Time Stop Time Status Last Admin Dose Admin Sodium Chloride (NS Flush) 2 ml BID IV FLUSH 09/26/17 09:00 10/02/17 09:35 Acetaminophen (Tylenol) 650 mg Q4H PRN PO TEMP > 100.4 09/25/17 21:30 09/26/17 00:02 Senna/Docusate Sodium (Debi-Colace) 1 tab BID PO 09/26/17 09:00 10/02/17 09:35 Magnesium Hydroxide (Milk Of Magnesia Liq) 30 ml Q12H PRN PO Mild constipation 09/25/17 21:30 10/01/17 06:47 Lactulose (Lactulose Liq) 30 ml DAILY PRN PO SEVERE CONSITIPATION 09/25/17 21:30 09/29/17 20:50 Insulin Aspart (NovoLOG SUPPLEMENTAL SCALE) 1 ACHS SLIDING SCALE SQ 09/25/17 21:45 10/02/17 11:54 Amlodipine Besylate (Norvasc) 10 mg DAILY PO 09/26/17 09:00 10/02/17 09:35 Hydrochlorothiazide (Hydrodiuril) 25 mg DAILY PO 09/26/17 09:00 10/02/17 09:35 Lisinopril (Prinivil) 5 mg DAILY PO 09/26/17 09:00 10/02/17 09:35 Venlafaxine HCl (Effexor Xr) 37.5 mg DAILY PO 09/26/17 09:00 10/02/17 09:35 Ertapenem 1000 mg/ Sodium Chloride 100 ml @ 200 mls/hr Q24H IV 09/28/17 15:00 10/01/17 14:34 Lactulose (Lactulose Liq) 30 ml DAILY PO 10/02/17 09:00 10/02/17 09:35 Tramadol HCl (Ultram) 50 mg Q4H PRN PO PAIN GREATER THAN 5 10/01/17 15:00 10/02/17 06:18 Insulin Detemir (Levemir Inj) 35 units HS SQ 10/01/17 21:00 10/01/17 21:05 Bethanechol Chloride (Urecholine) 25 mg Q8HR PO 10/02/17 11:00 10/02/17 11:02 Objective Remarks GENERAL: Middle aged female, lying in bed resting. SKIN: Warm and dry. HEAD: Normocephalic. EYES: No injection or drainage. NECK: Supple, trachea midline. CARDIOVASCULAR: Regular rate and rhythm RESPIRATORY: Breath sounds equal bilaterally. No accessory muscle use. GASTROINTESTINAL: Abdomen soft, non-tender, mildly distended. EXTREMITIES: No cyanosis, or edema. MUSCULOSKELETAL: Adequate muscle tone. NEUROLOGICAL: awake, alert. normal speech. Assessment/Plan Problem List: (1) Adnexal mass ICD Codes: N94.9 - Unspecified condition associated with female genital organs and menstrual cycle Status: Acute Plan: --consult SENIOR INFORMATION SECURITY ARCHITECT oncology -- CA 125 not elevated (2) Bilateral hydronephrosis ICD Codes: N13.30 - Unspecified hydronephrosis Plan: --urology following. --creatinine improving. (3) Sepsis ICD Codes: A41.9 - Sepsis, unspecified organism Status: Acute Plan: ---urosepsis --BC + e.coli --on antibiotics per ID (4) Microcytic anemia ICD Codes: D50.9 - Microcytic anemia Status: Chronic Assessment 57-year-old female with large adnexal mass admitted with abdominal pain and urinary retention. history of diabetes, hypertension and hyperlipidemia Plan 1. consult SENIOR INFORMATION SECURITY ARCHITECT oncology 2. continue antibiotics per ID 3. continue supportive care Problem Qualifiers (1) Sepsis: Qualified Codes: A41.9 - Sepsis, unspecified organism Skylar Mariee Oct 02, 2017 13:48
--- NOTE | 2017-10-02 13:51 | HHI.PR ---
Subjective Remarks Patient reports she is feeling better. She wants to go home. Sheikh removed. However she has not voided yet. Objective Vitals Vital Signs Date Time Temp Pulse Resp B/P (MAP) Pulse Ox O2 Delivery O2 Flow Rate FiO2 10/02/17 12:00 98.1 102 20 134/71 (92) 98 10/02/17 08:00 98.3 100 20 137/82 (100) 98 10/02/17 06:15 97.8 107 18 158/89 (112) 99 10/02/17 04:00 97 10/02/17 00:39 98.5 100 16 139/64 (89) 98 10/02/17 00:00 97 10/01/17 20:00 95 10/01/17 18:07 98.7 98 20 130/87 (101) 98 10/01/17 17:38 103 I/O 10/01/17 10/01/17 10/01/17 10/02/17 10/02/17 10/02/17 07:00 15:00 23:00 07:00 15:00 23:00 Intake Total 480 ml 480 ml Output Total 2600 ml 1450 ml 2450 ml Balance -2120 ml -1450 ml -1970 ml Intake Oral 480 ml 480 ml Output Urine Total 2600 ml 1450 ml 2450 ml Bladder Scan Volume Amount 792 ml Result Diagram: 10/02/17 0622 10/02/17 06 Objective Remarks GENERAL: This is a well-nourished, well-developed patient, in no apparent distress. CARDIOVASCULAR: Normal rate and regular rhythm without murmurs, gallops, or rubs. RESPIRATORY: Good respiratory efforts. Breath sounds equal and clear to auscultation bilaterally. GASTROINTESTINAL: Abdomen soft, mild tenderness mostly located on the left lower quadrant. Normal and active bowel sounds. MUSCULOSKELETAL: Extremities without cyanosis, or edema. NEURO: Alert & Oriented x4 to person, place, time, situation. Moves all ext x4 PSYCH: Appropriate mood and affect. A/P Assessment and Plan 57-year-old female with: Severe sepsis Patient febrile, tachycardic with elevated lactic acid and leukocytosis on presentation E. coli UTI/E. coli bacteremia. Blood cultures growing E. coli. Appreciate infectious disease input. Patient switched to Ertapenem. Repeat blood cultures so far negative. Discussed with infectious disease who will make recommendations for antibiotics to complete the treatment course. Urinary retention/hydronephrosis/hydroureter CT of the abdomen and pelvis significant for bilateral hydronephrosis right greater than left with hydroureter and distention of the urinary bladder; and sent for bladder obstruction Sheikh placed with 2 L of urine output Patient recently hospitalized and evaluated for similar, though at the time this was secondary to constipation Appreciate urology following who recommended continuing to treat constipation aggressively. Constipation resolved. Patient failed voiding trial. Per urology, Sheikh to be reinserted and the patient can follow-up outpatient. Adnexal mass CT of the abdomen/pelvis significant for a left pelvic/adnexal mass that has a lobulated appearance was cystic and solid components concerning for ovarian neoplasm Oncology consulted, COLLECTION OFFICER consulted and pelvic ultrasound was ordered. Patient refused pelvic ultrasound. MRI confirmed complex mass. Mandatory referral for FLAMER SEALER oncology outpatient follow-up. Acute kidney injury: Resolved. Likely secondary to urinary retention Continue Sheikh catheter Diabetes mellitus Continue Levemir. 35 units nightly Sliding scale insulin Monitor blood glucose Hypertension/hyperlipidemia Continue home medications Stage I pressure ulcer Wound care following, appreciate assistance Makayla Talley MD Oct 02, 2017 13:51
[2017-10-02] MEDS ORDERED: BETH25 PO (14:05)
[2017-10-02] MEDS ORDERED: TRAM50 PO (14:05)
[2017-10-02] MEDS ORDERED: INVA1INJ IV (14:14)
[2017-10-02] MEDS ORDERED: EPIN1INJ21 SQ (14:15)
[2017-10-02] MEDS ORDERED: SOLU250I IV PUSH (14:15)
[2017-10-02] MEDS ORDERED: EPIN1INJ21 IV PUSH (14:15)
[2017-10-02] MEDS: ERTAPENEM INJ 1,000 MG in SODIUM CHLORIDE 0.9% INJ 100 ML IV SCH ×2 (14:19→14:56)
--- NOTE | 2017-10-02 14:25 | HHI.FF ---
Infusion Therapy Location of Infusion Therapy: Home [facility] Care IV Infusion Order Patient Information Appointment Date: Oct 02, 2017 Patient Weight 89.4 kg Diagnosis: Diagnosis ESBL E.coli bacteremia ESBL E.coli Complicated UTI Coded Allergies: No Known Allergies (Verified Allergy, Unknown, 09/26/17) Administer Medication Ertapenem 1 gram IV q 24 hours Start Treatment: Oct 02, 2017 Stop Treatment: Oct 17, 2017 Additional Information Venous access: Other (Midline) Additional Instructions [x] Peripheral flush and dressing changes per protocol [x] Implanted port and central crate liner: * Implanted port: 10 ml Normal Saline followed by 5 ml Heparin 100 units/ml Heparin flush after each use and monthly to maintain. [] May leave port accessed during therapy. [] May leave peripheral site accessed for duration of therapy. [x] If patient has SOB or respiratory distress, check oxygen saturation. If less than 90% or clinical signs of respiratory distress, administer oxygen at 2 L/min. via nasal cannula and notify physician. [x] Anaphylaxis/Reaction orders: * Stop infusion. * Keep IV line open with saline flush. * Notify physician. * Monitor vital signs every 15 minutes until symptoms resolve. * Check Oxygen saturation; Oxygen at 2 L/min. via nasal cannula if less than 90% or clinical signs of respiratory distress. * Administer diphenhydramine (Benadryl) 25 mg IV STAT, (unless patient has received as pre-med). May repeat once, if necessary. * Solu-Cortef 250 mg IVP over 30-60 seconds, use 100 mg vials for each dissolution. * Epinephrine (1mg/1 ml) 0.3 mg subcutaneously or IVP now with any signs of respiratory distress. * Check with physician for new additional pre-med orders if patient is re- challenged or re-treated. [x] May remove PICC line when treatment complete, after confirming with Physician. [x] If the patient is admitted to the hospital, the ED, or transferred via [facility] , complete transfer form including medication reconciliation order sheet. Laboratory Tests Weekly Labs: CBC w/diff, Creatinine, CRP, LFT's (Hepatic function test) Additional Information Please draw weekly labs, fax the labs to number below and Call with abnormals, change in clinical condition or problems to: or covering ID Physician Follow up appt: Follow up with PCP Follow up with other MDs as planned. Counseling: Counseled about medication side effects Counseled about PICC line care and hand hygiene. Vika Pearson MD Oct 02, 2017 14:25
--- NOTE | 2017-10-02 17:02 | HHI.DS ---
Discharge Summary Admission Date Sep 25, 2017 at 20:59 Admitting Diagnosis Sepsis, Urinary retention, Acute renal failure Brief History - From Admission D7-year-old female with past medical history significant for diabetes mellitus, hypertension, hyperlipidemia history of urinary retention and recent hospitalization and history of constipation presents to the emergency department at the [facility] where she was seen today. The patient reportedly was febrile when she was seen in clinic. She reports that she has significant constipation with her last bowel movement being yesterday however also reports diarrhea approximately 3 times per day including yesterday. The patient reports that she has been able to urinate intermittently however upon arrival to the emergency department was unable to do so and had lower pelvic pain consistent with her previous urinary retention. She also complains of left-sided flank pain. The patient denies any subjective fever/chills. No shortness of breath or chest pain. No nausea/ vomiting. No lateralizing signs/symptoms. CBC/BMP: 10/02/17 0622 10/02/17 0622 Significant Findings Laboratory Tests Test 09/30/17 03:49 10/01/17 05:40 10/02/17 06:22 Hemoglobin 9.4 GM/DL (11.6-15.3) 9.8 GM/DL (11.6-15.3) 10.5 GM/DL (11.6-15.3) Hematocrit 29.4 % (35.0-46.0) 30.9 % (35.0-46.0) 32.9 % (35.0-46.0) Mean Corpuscular Volume 69.3 FL (80.0-100.0) 69.2 FL (80.0-100.0) 68.9 FL (80.0-100.0) Mean Corpuscular Hemoglobin 22.2 PG (27.0-34.0) 22.0 PG (27.0-34.0) 22.0 PG (27.0-34.0) Random Glucose 224 MG/DL (74-106) 225 MG/DL (74-106) 195 MG/DL (74-106) Carbon Dioxide Level 33.2 MEQ/L (21.0-32.0) 32.4 MEQ/L (21.0-32.0) 34.2 MEQ/L (21.0-32.0) Estimat Glomerular Filtration Rate 80 ML/MIN (>89) 72 ML/MIN (>89) 79 ML/MIN (>89) Mean Corpuscular Hemoglobin Concent 31.7 % (32.0-36.0) Platelet Count 461 TH/MM3 (150-450) 519 TH/MM3 (150-450) Chloride Level 97 MEQ/L (98-107) PE at Discharge GENERAL: This is a well-nourished, well-developed patient, in no apparent distress. CARDIOVASCULAR: Normal rate and regular rhythm without murmurs, gallops, or rubs. RESPIRATORY: Good respiratory efforts. Breath sounds equal and clear to auscultation bilaterally. GASTROINTESTINAL: Abdomen soft, mild tenderness mostly located on the left lower quadrant. Normal and active bowel sounds. MUSCULOSKELETAL: Extremities without cyanosis, or edema. NEURO: Alert & Oriented x4 to person, place, time, situation. Moves all ext x4 PSYCH: Appropriate mood and affect. Pt Condition on Discharge: Good Discharge Disposition: Disch w/ Home Health Serv Discharge Instructions DIET: Follow Instructions for: Heart Healthy Diet Activities you can perform: Regular-No Restrictions Makayla Talley MD Oct 02, 2017 17:02
--- NOTE | 2017-10-02 17:04 | HHI.FF ---
Face to Face Verification Diagnosis: (1) SANDY (acute kidney injury) (2) Sepsis (3) Urinary retention (4) Adnexal mass (5) Constipation (6) Fecal impaction (7) Bilateral hydronephrosis (8) Diabetes mellitus Home Health Nursing Order: Medical education Signs/symptoms of disease process Medication education-adverse effect IV medication administration Sheikh catheter maintenance I have seen patient Elise Nathan on 10/02/17. My clinical findings support the need for the requested home health care services because: Limited ability to care for self Need for psychosocial assistance Infection w/ risk of complications Injectable med education/admin I certify that my clinical findings support that this patient is homebound because: Need for psychosocial assistance Makayla Talley MD Oct 02, 2017 17:04
[2017-10-02] MEDS ORDERED: Lactulose Liq PO (17:06)
--- NOTE | 2017-10-02 18:49 | HHI.IDPN ---
Subjective Subjective Remarks is a 57-year-old AAF with past medical history significant for diabetes mellitus, hypertension, hyperlipidemia history of urinary retention and recent hospitalization and history of constipation presents to the emergency department at the [facility] where she was seen today. The patient reportedly was febrile when she was seen in clinic. She reports that she has significant constipation with her last bowel movement being yesterday however also reports diarrhea approximately 3 times per day including yesterday. The patient reports that she has been able to urinate intermittently however upon arrival to the emergency department was unable to do so and had lower pelvic pain consistent with her previous urinary retention. She also complains of left-sided flank pain. The patient denies any subjective fever/chills. No shortness of breath or chest pain. No nausea/ vomiting. No lateralizing signs/symptoms. In ED septic workup was initiated, blood cultures are positive and ID consulted for evaluation and Mment of E coli bacteremia and sepsis. Overnight events reviewed No fevers No rash no diarrhea\ Still complains of abdominal pain on left side. Awaiting Card Runner consult and plan. BCX repeat after Ertapenem started negative at 3 days. Antibiotics Ertapenem IV Lines Line sites with no e.o infection Past Medical History reviewed (Tammi Mendoza) Allergies: Coded Allergies: No Known Allergies (Verified Allergy, Unknown, 09/26/17) Objective . Vital Signs Date Time Temp Pulse Resp B/P (MAP) Pulse Ox O2 Delivery O2 Flow Rate FiO2 10/02/17 12:00 98.1 102 20 134/71 (92) 98 10/02/17 11:17 103 10/02/17 08:00 98.3 100 20 137/82 (100) 98 10/02/17 07:00 101 10/02/17 06:15 97.8 107 18 158/89 (112) 99 10/02/17 04:00 97 10/02/17 00:39 98.5 100 16 139/64 (89) 98 10/02/17 00:00 97 10/01/17 20:00 95 10/02/17 10/02/17 10/03/17 15:00 23:00 07:00 Intake Total 240 ml Output Total 900 ml Balance -660 ml Intake Oral 240 ml Output Urine Total 900 ml Bladder Scan Volume Amount 792 ml . Laboratory Tests Test 10/01/17 05:40 4/3/18 06:22 White Blood Count 10.0 TH/MM3 10.8 TH/MM3 Red Blood Count 4.47 MIL/MM3 4.77 MIL/MM3 Hemoglobin 9.8 GM/DL 10.5 GM/DL Hematocrit 30.9 % 32.9 % Mean Corpuscular Volume 69.2 FL 68.9 FL Mean Corpuscular Hemoglobin 22.0 PG 22.0 PG Mean Corpuscular Hemoglobin Concent 31.7 % 32.0 % Red Cell Distribution Width 16.0 % 16.1 % Platelet Count 461 TH/MM3 519 TH/MM3 Mean Platelet Volume 7.9 FL 7.7 FL Laboratory Tests Test 10/01/17 05:40 10/02/17 06:22 Blood Urea Nitrogen 13 MG/DL 17 MG/DL Creatinine 0.96 MG/DL 0.89 MG/DL Random Glucose 225 MG/DL 195 MG/DL Calcium Level 9.4 MG/DL 10.0 MG/DL Sodium Level 139 MEQ/L 137 MEQ/L Potassium Level 3.8 MEQ/L 4.3 MEQ/L Chloride Level 99 MEQ/L 97 MEQ/L Carbon Dioxide Level 32.4 MEQ/L 34.2 MEQ/L Anion Gap 8 MEQ/L 6 MEQ/L Estimat Glomerular Filtration Rate 72 ML/MIN 79 ML/MIN Microbiology Date/Time Source Procedure Growth Status 10/01/17 21:21 Stool Stool Stool Occult Blood (AILYN) - Final HEMOCCULT NEGATIVE Complete Imaging Last Impressions Pelvis Ultrasound 09/27/17 0000 Signed Impressions: Service Date/Time: August 09:33 - CONCLUSION: Equivocal sonographic appearance of the pelvis Sukhwinder Ayala MD Chest X-Ray 09/25/17 1832 Signed Impressions: Service Date/Time: Monday, September 25, 2017 18:44 - CONCLUSION: No acute disease. Sukhwinder Freeman MD Abdomen/Pelvis CT 09/25/17 0000 Signed Impressions: Service Date/Time: Monday, September 25, 2017 20:04 - CONCLUSION: 1. Bilateral hydronephrosis being worse on the right with hydroureter and distention of the urinary bladder. A bladder outlet obstruction needs to be considered. 2. Left pelvic/adnexal mass. It has a lobulated appearance with cystic and solid components concerning for ovarian neoplasm. 3. Large amount of stool the rectum. Sukhwinder Freeman MD Physical Exam GENERAL: This is a well-nourished, well-developed patient, in no apparent distress. SKIN: No rashes, ecchymoses or lesions. Cool and dry. HEAD: Atraumatic. Normocephalic. No temporal or scalp tenderness. EYES: Pupils equal round and reactive. Extraocular motions intact. No scleral icterus. No injection or drainage. ENT: Nose without bleeding, purulent drainage or septal hematoma. Throat without erythema, tonsillar hypertrophy or exudate. Uvula midline. Airway patent. NECK: Trachea midline. Supple, nontender, no meningeal signs. CARDIOVASCULAR: Regular rate and rhythm without murmurs, gallops, or rubs. RESPIRATORY: Clear to auscultation. Breath sounds equal bilaterally. No wheezes , rales, or rhonchi. GASTROINTESTINAL: Abdomen soft, mildly distended. Obese. Diffuse tenderness. MUSCULOSKELETAL: Extremities without clubbing, cyanosis, or edema. No joint tenderness, effusion, or edema noted. No calf tenderness. Negative Homans sign bilaterally. NEUROLOGICAL: Awake and alert. Non focal Psych cooperative IV line sites with no e.o infection. 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 Retention of urine secondary large amount of stool ? ileus. Recs: Continue Ertapenem IV(ASP: ESBL E coli bacteremia) started on 09/28/17. Plan on 2 weeks. Repeat blood cultures negative after Ertapenem IV started. ECHO negative. Follow cultures Follow clinically. dw Dr.Rimpel rivera cleared by other consultants to call me for ID discharge recommendations. No PICC till cleared by ID. Will follow prn in the interim. Please call sooner if any change in clinical condition or questions. (Tammi Mendoza) Remarks The exam, history, and the medical decision-making described in the above note were completed with the assistance of the mid-level provider. I reviewed and agree with the findings presented. I attest that I had a [id number] encounter with the patient on the same day, and personally performed and documented my assessment and findings in the medical record. Failed void trial. Post hospital infusion orders in chart. dw patient about IV infusions as outpt Plan nakita Alvarez and Switch Cleaner. Will sign off please call back if any change in clinical condition or questions. (Vika Pearson MD) Tammi Mendoza Oct 02, 2017 18:49 Vika Pearson MD Oct 02, 2017 19:28
== END 2017-10-02 18:25 | disposition home health service (06) | DRG 872 ==
LOC: NEPC 17:45 → NEDA 20:59 → HCIN 23:33
PROVIDERS: ADMIT Hospitalist; ATTEND Hospitalist
PROC: 0T9B70Z Drainage of Bladder with Drainage Device, Via Natural or Artificial Opening (ICD-10-PCS; principal; 2017-09-25)
DX: A41.51 Sepsis due to Escherichia coli [E. coli] (principal); N17.9 Acute kidney failure, unspecified; L89.151 Pressure ulcer of sacral region, stage 1; E11.69 Type 2 diabetes mellitus with other specified complication; K31.84 Gastroparesis; N13.30 Unspecified hydronephrosis; E11.43 Type 2 diabetes mellitus with diabetic autonomic (poly)neuropathy; K56.7 Ileus, unspecified; N39.0 Urinary tract infection, site not specified; R19.00 Intra-abdominal and pelvic swelling, mass and lump, unspecified site; I10 Essential (primary) hypertension; R00.0 Tachycardia, unspecified; F32.9 Major depressive disorder, single episode, unspecified; F17.210 Nicotine dependence, cigarettes, uncomplicated; R65.20 Severe sepsis without septic shock; E78.5 Hyperlipidemia, unspecified; A63.0 Anogenital (venereal) warts; D50.9 Iron deficiency anemia, unspecified; E87.6 Hypokalemia; Z79.4 Long term (current) use of insulin; N33 Bladder disorders in diseases classified elsewhere
CPT/HCPCS: 36569; 71045; 72197; 74018; 74176; 76856; 76937; 80048; 80053; 81001; 82272; 82550; 82565; 82607; 82728; 82747; 82948; 83540; 83550; 83605; 83690; 83735; 84100; 84484; 85025; 85027; 85610; 85730; 86304; 87040; 87077; 87086; 87186; 87205; 93005; 93306; 96365; 96367; A9579; J1335; J1815; J2270; J2543; J3370; J7030; J7040; J7050

== ENCOUNTER 2017-10-30 03:49 | Emergency (ER) | payer MEDICARE, OTHER ==
[~2017-10-30] VITALS: Ht 172.7 cm; Wt 89.0 kg
[~2017-10-30 03:49] MED LIST changes: +BETH25 PO; +EPIN1INJ21 IV PUSH; +EPIN1INJ21 SQ; -HYDR-3580 PO; +INVA1INJ IV; +Lactulose Liq PO; +SOLU250I IV PUSH; +TRAM50 PO
[2017-10-30 03:50] VITALS: BP 198/79; PULSE 118; RESP 18; TEMP 97.2; O2SAT 99
--- NOTE | 2017-10-30 04:13 | PD ---
HPI Chief Complaint: Complaint Time Seen by Provider: 04:10 Travel History International Travel<30 days: No Contact w/Intl Traveler<30days: No Traveled to known affect area: No History of Present Illness HPI 57-year-old female patient with history of diabetes, urinary outflow obstruction , previous UTIs, presents to the ER today because she started having suprapubic abdominal pains which have been getting worse tonight, radiating to both flank area. She states that the same thing that she has had before, states that she is having discomfort especially with urinating. Pain is currently a 10 out of 10. She denies any fevers, vomiting, or other symptoms. Modifying Factors: None Associated Signs & Symptoms: Suprapubic abdominal discomfort radiating to both flank Risk Factors: Urinary tract infections, urinary outflow obstruction PFSH Past Medical History Hx Anticoagulant Therapy: No Anxiety: Yes Depression: Yes Cancer: No Cardiovascular Problems: Yes Chemotherapy: No Cerebrovascular Accident: No Diabetes: Yes Patient Takes Glucophage: Yes (10/30/2017 0000) Diminished Hearing: No Endocrine: Yes Genitourinary: No Hypertension: Yes Immune Disorder: No Musculoskeletal: No Neurologic: No Psychiatric: Yes Reproductive: No Respiratory: No Immunizations Current: No Ulcer: Yes Tetanus Vaccination: Unknown Influenza Vaccination: No ?: Not LMP: menapause : 1 Para: 1 Past Surgical History Hysterectomy: No Other Surgery: Yes Social History Alcohol Use: No Tobacco Use: Yes Substance Use: No Allergies-Medications (Allergen,Severity, Reaction): Coded Allergies: No Known Allergies (Verified Allergy, Unknown, 09/26/17) Reported Meds & Prescriptions Reported Meds & Active Scripts Active [Lactulose Liq] 30 ML Syrp 30 Ml PO DAILY Epinephrine Inj 1 Mg/Ml (1 Ml) Inj 0.3 Mg SQ ONCE PRN Give with any signs of respiratory distress. Epinephrine Inj 1 Mg/Ml (1 Ml) Inj 0.3 Mg IV PUSH ONCE PRN Solu-Cortef Inj (Hydrocortisone Sodium Succinate) 250 Mg/2 Ml Inj 250 Mg IV PUSH ONCE PRN Give over 30-60 seconds. Invanz Inj (Ertapenem) 1 Gm Addvial 1 Gm IV Q24H 14 Days ADMINISTER IN 100ML NS Ultram (Tramadol HCl) 50 Mg Tab 50 Mg PO Q4H PRN Urecholine (Bethanechol Chloride) 25 Mg Tab 25 Mg PO Q8HR Lantus Inj (Insulin Glargine) 1,000 Unit/10 Ml Vial 36 Units SQ HS Norvasc (Amlodipine Besylate) 10 Mg Tab 10 Mg PO DAILY Ambien (Zolpidem Tartrate) 5 Mg Tab 5 Mg PO HS PRN Hydrochlorothiazide 25 Mg Tab 25 Mg PO DAILY Effexor XR 24 HR (Venlafaxine HCl) 37.5 Mg Cap 37.5 Mg PO DAILY Metformin (Metformin HCl) 1,000 Mg Tab 1,000 Mg PO BIDPC With meals Lisinopril 5 Mg Tab 5 Mg PO DAILY Glipizide 5 Mg Tab 5 Mg PO BIDAC Take 30 minutes before a meal Review of Systems Except as stated in HPI: all other systems reviewed are Neg Physical Exam Narrative GENERAL: Well-developed middle-age -Romanian female patient currently and moderate distress. Awake and oriented 3. SKIN: Focused skin assessment warm/dry. HEAD: Atraumatic. Normocephalic. EYES: Pupils equal and round. No scleral icterus. No injection or drainage. ENT: No nasal bleeding or discharge. Mucous membranes pink and moist. NECK: Trachea midline. No JVD. CARDIOVASCULAR: Regular rate and rhythm. No murmur appreciated. RESPIRATORY: No accessory muscle use. Clear to auscultation. Breath sounds equal bilaterally. GASTROINTESTINAL: Abdomen soft, suprapubic tenderness on palpation without guarding or rebound, nondistended. Hepatic and splenic margins not palpable. MUSCULOSKELETAL: No obvious deformities. No clubbing. No cyanosis. No edema. NEUROLOGICAL: Awake and alert. No obvious cranial nerve deficits. Motor grossly within normal limits. Normal speech. PSYCHIATRIC: Appropriate mood and affect; insight and judgment normal. Data Data Last Documented VS Vital Signs Date Time Temp Pulse Resp B/P (MAP) Pulse Ox O2 Delivery O2 Flow Rate FiO2 10/30/17 05:00 100 Room Air 10/30/17 03:50 97.2 118 18 198/79 (118) Orders Orders Urinalysis - C+S If Indicated (10/30/17 04:01) Phenazopyridine (Pyridium) (10/30/17 04:15) Urine Culture (10/30/17 04:00) Complete Blood Count With Diff (10/30/17 04:31) Comprehensive Metabolic Panel (10/30/17 04:31) Ct Abd/Pel W/O Iv Contrast (10/30/17 04:31) Iv Access Insert/Monitor (10/30/17 04:31) Ecg Monitoring (10/30/17 04:31) Oximetry (10/30/17 04:31) Sodium Chloride 0.9% Flush (Ns Flush) (10/30/17 04:45) Ed Discharge Order (10/30/17 05:40) Lactic Acid Sepsis Protocol (10/30/17 05:41) Blood Culture (10/30/17 05:41) Piperacil-Tazo 4.5 Gm Premix (Zosyn 4.5 (10/30/17 05:41) Labs Laboratory Tests Test 10/30/17 04:00 10/30/17 04:58 Urine Color LIGHT-YELLOW Urine Turbidity HAZY Urine pH 7.5 Urine Specific Beth[place] 1.009 Urine Protein 300 mg/dL Urine Glucose (UA) TRACE mg/dL Urine Ketones NEG mg/dL Urine Occult Blood MOD Urine Nitrite NEG Urine Bilirubin NEG Urine Urobilinogen LESS THAN 2.0 MG/DL Urine Leukocyte Esterase NEG Urine RBC 167 /hpf Urine WBC 22 /hpf Urine Squamous Epithelial Cells 1 /hpf Urine Transitional Epithelial Cells 1 /hpf Urine Renal Epithelial Cells 1 /hpf Urine Bacteria RARE /hpf Microscopic Urinalysis Comment CULTURE INDICATED White Blood Count 10.3 TH/MM3 Red Blood Count 4.44 MIL/MM3 Hemoglobin 9.8 GM/DL Hematocrit 30.4 % Mean Corpuscular Volume 68.5 FL Mean Corpuscular Hemoglobin 22.0 PG Mean Corpuscular Hemoglobin Concent 32.1 % Red Cell Distribution Width 17.3 % Platelet Count 313 TH/MM3 Mean Platelet Volume 8.0 FL Neutrophils (%) (Auto) 67.5 % Lymphocytes (%) (Auto) 19.0 % Monocytes (%) (Auto) 7.0 % Eosinophils (%) (Auto) 5.2 % Basophils (%) (Auto) 1.3 % Neutrophils # (Auto) 7.0 TH/MM3 Lymphocytes # (Auto) 2.0 TH/MM3 Monocytes # (Auto) 0.7 TH/MM3 Eosinophils # (Auto) 0.5 TH/MM3 Basophils # (Auto) 0.1 TH/MM3 CBC Comment DIFF FINAL Differential Comment Blood Urea Nitrogen 47 MG/DL Creatinine 5.68 MG/DL Random Glucose 128 MG/DL Total Protein 6.9 GM/DL Albumin 2.8 GM/DL Calcium Level 8.9 MG/DL Alkaline Phosphatase 173 U/L Aspartate Amino Transf (AST/SGOT) 11 U/L Alanine Aminotransferase (ALT/SGPT) 13 U/L Total Bilirubin 0.2 MG/DL Sodium Level 141 MEQ/L Potassium Level 5.2 MEQ/L Chloride Level 111 MEQ/L Carbon Dioxide Level 19.7 MEQ/L Anion Gap 10 MEQ/L Estimat Glomerular Filtration Rate 9 ML/MIN MDM Medical Decision Making Medical Screen Exam Complete: Yes Emergency Medical Condition: Yes Interpretation(s) Laboratory Tests Test 10/30/17 04:00 10/30/17 04:58 Urine Turbidity HAZY (CLEAR) Urine Protein 300 mg/dL (NEG-TRACE) Urine Occult Blood MOD (NEG) Urine RBC 167 /hpf (0-3) Urine WBC 22 /hpf (0-5) Urine Bacteria RARE /hpf (NONE) Hemoglobin 9.8 GM/DL (11.6-15.3) Hematocrit 30.4 % (35.0-46.0) Mean Corpuscular Volume 68.5 FL (80.0-100.0) Mean Corpuscular Hemoglobin 22.0 PG (27.0-34.0) Red Cell Distribution Width 17.3 % (11.6-17.2) Eosinophils (%) (Auto) 5.2 % (0.0-4.0) Eosinophils # (Auto) 0.5 TH/MM3 (0-0.4) Blood Urea Nitrogen 47 MG/DL (7-18) Creatinine 5.68 MG/DL (0.50-1.00) Random Glucose 128 MG/DL (74-106) Albumin 2.8 GM/DL (3.4-5.0) Alkaline Phosphatase 173 U/L (45-117) Aspartate Amino Transf (AST/SGOT) 11 U/L (15-37) Potassium Level 5.2 MEQ/L (3.5-5.1) Chloride Level 111 MEQ/L (98-107) Carbon Dioxide Level 19.7 MEQ/L (21.0-32.0) Estimat Glomerular Filtration Rate 9 ML/MIN (>89) Last 24 hours Impressions Abdomen/Pelvis CT 10/30/17 0431 Signed Impressions: Service Date/Time: Monday, October 30, 2017 04:44 - CONCLUSION: 1. While there is less distention of the urinary bladder when compared to the prior, there is still bladder wall thickening. 2. Stable bilateral hydronephrosis and hydroureter, right greater than left. No associated stone disease. 3. Stable, lobulated mass lesion in the left pelvis measures 10.4 x 8.0 x 6.8 cm and is presumably associated with the left ovary. This should be considered an ovarian neoplasm until proven otherwise 4. Large amount of stool and contrast in the rectal vault with possibly an element of fecal impaction. No obstruction, however. Antoine King MD Differential Diagnosis UTI versus urinary outflow obstruction Narrative Course Lab work shows significant elevation of BUN and creatinine concerning for acute renal failure. Her UA shows a UTI. CAT scan shows bladder wall thickening and bilateral hydronephrosis. She does have constipation and the ovarian adnexal mass was once again seen. Patient is supposed to be following up in a few days with urology. At this point however I am fairly concerned about her renal function. IV antibiotics were initiated and cultures were also drawn. I have talked to the patient regarding need for admission for further treatment. However, she states that she just needs to go and return her car for somebody else to use and she is going to come right back. At this point, I have talked her about the importance of coming back, and the chance of worsening renal function and renal failure as well as sepsis. Patient states understanding. Diagnosis Primary Impression: SANDY (acute kidney injury) Additional Impressions: Bilateral hydronephrosis UTI (urinary tract infection) Additional Instructions: He need to come back right away after you drop off the car, you need to be admitted to the hospital today. There is concerned that you are going into kidney failure and ear infection could be getting worse. Disposition: 01 DISCHARGE HOME Condition: Stable Benigno Miranda MD October 30, 2017 04:13
[2017-10-30] MEDS ORDERED: PHENAZOPYRIDINE HCL 100 MG TAB PO ONE (04:15)
[2017-10-30 04:21] LABS: BACTERIA, URINE RARE /hpf; BILIRUBIN, URINE NEG (NEG); BLOOD, URINE MOD (NEG); GLUCOSE,URINE TRACE mg/dL (NEG); KETONE, URINE NEG (NEG); NITRITE,URINE NEG (NEG); PH, URINE 7.5 (5.0-8.5); RENAL EPITHELIAL CELLS 1 /hpf; SQUAMOUS EPITHELIAL CELL URINE 1 /hpf (0-5); TRANSITIONAL EPI CELLS, URINE 1 /hpf; URINE COLOR LIGHT-YELLOW (YELLW/STRAW); URINE LEUKOCYTE ESTERASE NEG (NEG)
[2017-10-30] MEDS ORDERED: SODIUM CHLORIDE 0.9% FLUSH 10 ML FLUSH IV FLUSH PRN (04:45)
[2017-10-30 05:00] VITALS: O2SAT 100
[2017-10-30 05:10] LABS: BASOPHIL # 0.1 TH/MM3 (0-0.2); BASOPHIL % 1.3 % (0.0-2.0); EOSINOPHIL # 0.5 TH/MM3 (0-0.4); EOSINOPHIL % 5.2 % (0.0-4.0); HEMATOCRIT 30.4 % (35.0-46.0); HEMOGLOBIN 9.8 GM/DL (11.6-15.3); MEAN CELL VOLUME 68.5 FL (80.0-100.0); MEAN CORPUSCULAR HGB CONC 32.1 % (32.0-36.0); MONOCYTE # 0.7 TH/MM3 (0-0.9); NEUT % 67.5 % (16.0-70.0); PLATELET COUNT 313 TH/MM3 (150-450); RED BLOOD COUNT 4.44 MIL/MM3 (4.00-5.30); RED CELL DISTRIBUTION WIDTH 17.3 % (11.6-17.2); WHITE BLOOD COUNT 10.3 TH/MM3 (4.0-11.0)
--- NOTE | 2017-10-30 05:20 | RADRPT ---
EXAM DATE/TIME: 10/30/2017 04:44 [facility] COMPARISON: CT ABDOMEN & PELVIS W/O CONTRAST, September 25, 2017, 20:04. INDICATIONS : Left flank and back pain. ORAL CONTRAST: No oral contrast ingested. RADIATION DOSE: 20.76 CTDIvol (mGy) ; Patient body habitus MEDICAL HISTORY : Cardiovascular disease. Hypertension. Diabetes mellitus type 2. SURGICAL HISTORY : None. ENCOUNTER: Initial ACUITY: 1 day PAIN SCALE: 10/10 LOCATION: Left flank TECHNIQUE: Volumetric scanning of the abdomen and pelvis was performed. Using automated exposure control and ad justment of the mA and/or kV according to patient size, radiation dose was kept as low as reasonably achievable to obtain optimal diagnostic quality images. DICOM format image data is available electro nically for review and comparison. FINDINGS: LOWER LUNGS: The visualized lower lungs are clear. LIVER: Homogeneous density without lesion. There is no dilation of the biliary tree. No calcified gallston es. SPLEEN: Normal size without lesion. PANCREAS: Within normal limits. KIDNEYS: Bilateral hydronephrosis and hydroureter, right worse than left, unchanged from prior. No obvious sto leonora. ADRENAL GLANDS: Within normal limits. VASCULAR: There is no aortic aneurysm. BOWEL/MESENTERY: The stomach, small bowel, and colon demonstrate no acute abnormality. There is no free intraperitone al air or fluid. Stool and contrast in the rectal vault possibly representing some degree of fecal im paction. ABDOMINAL WALL: Within normal limits. RETROPERITONEUM: There is no lymphadenopathy. BLADDER: No thickening of the urinary bladder. The bladder is mildly distended, significantly improved from e prior exam in August when the bladder was markedly distended. REPRODUCTIVE: Lobulated 10.4 x 8.0 x 6.8 cm mass lesion in the left pelvis is presumably associated with the left o vary. This is grossly stable. INGUINAL: There is no lymphadenopathy or hernia. MUSCULOSKELETAL: Within normal limits for patient age. CONCLUSION: 1. While there is less distention of the urinary bladder when compared to the prior, there is still b ladder wall thickening. 2. Stable bilateral hydronephrosis and hydroureter, right greater than left. No associated stone dise ase. 3. Stable, lobulated mass lesion in the left pelvis measures 10.4 x 8.0 x 6.8 cm and is presumably as sociated with the left ovary. This should be considered an ovarian neoplasm until proven otherwise 4. Large amount of stool and contrast in the rectal vault with possibly an element of fecal impaction . No obstruction, however. Antoine King MD on October 30, 2017 at 5:13 Board Certified Radiologist. This report was verified electronically.
[2017-10-30 05:35] LABS: ALBUMIN 2.8 GM/DL (3.4-5.0); ALT (GPT) 13 U/L (10-53); AST (GOT) 11 U/L (15-37); BICARBONATE 19.7 MEQ/L (21.0-32.0); BLOOD UREA NITROGEN 47 MG/DL (7-18); CALCIUM 8.9 MG/DL (8.5-10.1); CHLORIDE 111 MEQ/L (98-107); CREATININE 5.68 MG/DL (0.50-1.00); GLOMERULAR FILTRATION RATE 9 ML/MIN (>89); GLUCOSE,RANDOM 128 MG/DL (74-106); SODIUM (NA) 141 MEQ/L (136-145)
[2017-10-30 05:37] LABS: ALKALINE PHOSPHATASE 173 U/L (45-117); TOTAL BILIRUBIN ADULT 0.2 MG/DL (0.2-1.0); TOTAL PROTEIN 6.9 GM/DL (6.4-8.2)
[2017-10-30] MEDS ORDERED: PIPERACIL-TAZO 4.5 GM PREMIX 100 ML IV STA (05:41)
[2017-10-30 06:17] VITALS: BP 143/79; PULSE 102; RESP 20; O2SAT 98
[2017-10-30 06:54] LABS: LACTIC ACID SEPSIS PROTOCOL 2.1 mmol/L (0.4-2.0)
== END 2017-10-30 06:35 | disposition home or self-care (01) ==
LOC: NEPC 03:49
DX: N17.9 Acute kidney failure, unspecified (principal); N13.30 Unspecified hydronephrosis; N39.0 Urinary tract infection, site not specified; E11.9 Type 2 diabetes mellitus without complications; I10 Essential (primary) hypertension; F32.9 Major depressive disorder, single episode, unspecified; Z72.0 Tobacco use; Z79.4 Long term (current) use of insulin
CPT/HCPCS: 74176; 80053; 81001; 83605; 85025; 87040; 87086; 96374; 99284; J2543

== ENCOUNTER 2017-10-30 07:23 | Inpatient (IN) | payer MEDICARE, OTHER ==
[2017-10-30] VITALS (7 sets, daily range): BP systolic 124–167; BP diastolic 71–85; PULSE 86–113; RESP 16–20; TEMP 98–98.5; O2SAT 96–100
[~2017-10-30] VITALS: Ht 172.7 cm; Wt 88.4 kg
[2017-10-30] MEDS ORDERED: ERTAPENEM INJ 1,000 MG in SODIUM CHLORIDE 0.9% INJ 100 ML IV SCH (08:15)
[2017-10-30] MEDS ORDERED: GLYCERIN ADULT 2 GM SUPP RECTAL ONE (08:15)
[2017-10-30] MEDS ORDERED: ASP: Documented ESBL, MDR A baumannii or P. aeruginosa XX PRN (08:15)
[2017-10-30] MEDS ORDERED: PHARMACY INFORMATION XX PRN (08:15)
--- NOTE | 2017-10-30 08:56 | PD ---
HPI Chief Complaint: Complaint Time Seen by Provider: 07:51 Travel History International Travel<30 days: No Contact w/Intl Traveler<30days: No Traveled to known affect area: No History of Present Illness HPI Is a 57-year-old woman who presents to the emergency department complaining of lower abdominal discomfort. She has a history of urinary retention related to constipation and ovarian mass. She was seen yesterday and was diagnosed recurrent urinary retention and UTI. She was history of ESBL UTI. No fevers no vomiting. No other complaints. Pain is in the lower abdomen, moderately severe, persistent, nonradiating. History Past Medical History Narrative Medical Diabetes mellitus Hypertension Hyperlipidemia History of urinary retention History of constipation : 1 Para: 1 Social History Alcohol Use: No Tobacco Use: Yes Allergies-Medications (Allergen,Severity, Reaction): Coded Allergies: No Known Allergies (Verified Allergy, Unknown, 10/30/17) Reported Meds & Prescriptions Reported Meds & Active Scripts Active [Lactulose Liq] 30 ML Syrp 30 Ml PO DAILY Epinephrine Inj 1 Mg/Ml (1 Ml) Inj 0.3 Mg SQ ONCE PRN Give with any signs of respiratory distress. Epinephrine Inj 1 Mg/Ml (1 Ml) Inj 0.3 Mg IV PUSH ONCE PRN Solu-Cortef Inj (Hydrocortisone Sodium Succinate) 250 Mg/2 Ml Inj 250 Mg IV PUSH ONCE PRN Give over 30-60 seconds. Invanz Inj (Ertapenem) 1 Gm Addvial 1 Gm IV Q24H 14 Days ADMINISTER IN 100ML NS Ultram (Tramadol HCl) 50 Mg Tab 50 Mg PO Q4H PRN Urecholine (Bethanechol Chloride) 25 Mg Tab 25 Mg PO Q8HR Lantus Inj (Insulin Glargine) 1,000 Unit/10 Ml Vial 36 Units SQ HS Norvasc (Amlodipine Besylate) 10 Mg Tab 10 Mg PO DAILY Ambien (Zolpidem Tartrate) 5 Mg Tab 5 Mg PO HS PRN Hydrochlorothiazide 25 Mg Tab 25 Mg PO DAILY Effexor XR 24 HR (Venlafaxine HCl) 37.5 Mg Cap 37.5 Mg PO DAILY Metformin (Metformin HCl) 1,000 Mg Tab 1,000 Mg PO BIDPC With meals Lisinopril 5 Mg Tab 5 Mg PO DAILY Glipizide 5 Mg Tab 5 Mg PO BIDAC Take 30 minutes before a meal Review of Systems Except as stated in HPI: all other systems reviewed are Neg Physical Exam Narrative GENERAL: 57-year-old woman, well-appearing, no acute distress. SKIN: Focused skin assessment warm/dry. HEAD: Atraumatic. Normocephalic. EYES: Pupils equal and round. No scleral icterus. No injection or drainage. ENT: No nasal bleeding or discharge. Mucous membranes pink and moist. NECK: Trachea midline. No JVD. CARDIOVASCULAR: Regular rate and rhythm. No murmur appreciated. RESPIRATORY: No accessory muscle use. Clear to auscultation. Breath sounds equal bilaterally. GASTROINTESTINAL: Abdomen is soft with some lower abdominal fullness and moderate diffuse tenderness in the lower abdomen. RECTAL: Firm stools high up in the rectal vault. MUSCULOSKELETAL: No obvious deformities. No clubbing. No cyanosis. No edema. NEUROLOGICAL: Awake and alert. No obvious cranial nerve deficits. Motor grossly within normal limits. Normal speech. PSYCHIATRIC: Appropriate mood and affect; insight and judgment normal. Data Data Last Documented VS Vital Signs Date Time Temp Pulse Resp B/P (MAP) Pulse Ox O2 Delivery O2 Flow Rate FiO2 10/30/17 07:36 98.5 113 17 167/77 (107) 100 Orders Orders Urinary Catheter Insert/Apply (10/30/17 08:14) Iv Access Insert/Monitor (10/30/17 08:14) Glycerin Adult Supp (Glycerin Adult Supp (10/30/17 08:15) Complete Blood Count With Diff (10/30/17 08:14) Comprehensive Metabolic Panel (10/30/17 08:14) Asp: Esbl/Mdr A Marino Or P. Aer (Asp Crit (10/30/17 08:15) Pharmacy Information ([facility] [place] Pharmacy Info (10/30/17 08:15) Ertapenem Inj (Invanz Inj) (10/30/17 08:15) Admit Order (Ed Use Only) (10/30/17 ) MDM Medical Decision Making Medical Screen Exam Complete: Yes Emergency Medical Condition: Yes Medical Record Reviewed: Yes Interpretation(s) Review of labs from earlier today CBC is remarkable for mild anemia CMP shows kidney injury with creatinine 5.68, BUN 47, bicarb 19.7 Lactate 2.1 UA with hematuria and pyuria Reviewed CT scan with some bladder wall thickening and dilation of the collecting system. Differential Diagnosis Obstructive uropathy, constipation, mass, acute kidney injury, other Narrative Course Medical decision making para 57-year-old woman presents emerged department appears to be obstructive uropathy recurrent UTI related to constipation and pelvic/ovarian mass. She has recurrent obstruction again today. Place Sheikh catheter. Will give IV antibiotics. History of ESBL UTI/bacteremia, will give ertapenem. Attempted to disimpact patient at the bedside. Only able to break up a little bit of stool due to the fact that the impaction is high up in the rectal vault. Diagnosis Primary Impression: SANDY (acute kidney injury) Additional Impressions: Fecal impaction Obstructive uropathy Ovarian mass Admitting Information Admitting Physician Requests: Admit Manolo Russ MD October 30, 2017 08:56
[2017-10-30] MEDS ORDERED: SODIUM CHLORIDE 0.9% FLUSH 10 ML FLUSH IV FLUSH PRN ×2 (09:15→12:00)
[2017-10-30] MEDS ORDERED: LACTULOSE SYRUP 20 GM/30 ML CUP PO PRN (09:15)
[2017-10-30] MEDS ORDERED: NALOXONE HCL 0.4 MG/ML AMP IV PUSH PRN ×3 (09:15→12:00)
[2017-10-30] MEDS ORDERED: BISACODYL 10 MG SUPP RECTAL PRN (09:15)
[2017-10-30] MEDS ORDERED: MAGNESIUM HYDROXIDE SUSP 30 ML CUP PO PRN (09:15)
[2017-10-30] MEDS ORDERED: SENNOSIDES 8.6 MG TAB PO PRN (09:15)
--- NOTE | 2017-10-30 09:21 | HHI.HP ---
HPI Service Family Medicine Primary Care Physician No Primary Care Physician Admission Diagnosis AK I, UTI, urinary obstruction, impaction, ovarian mass Diagnoses: International Travel<30 Days: No Contact w/Intl Traveler<30days: No Known Affected Area: No History of Present Illness She is a 57-year-old female with a history of diabetes mellitus to presenting with worsening lower abdominal pain. States that this been going on for a week and is located underneath the belly on the left side, states it is 10/10. Patient is a home medication of tramadol 50 mg every 4 hours for pain greater than 5, states that it has not been helping. Was hospitalized last in August for severe sepsis, bacteremia, and UTI that grew ESBL which was treated w/ antibiotic therapy. Found to have a SANDY and urinary retention, hydronephrosis thought to be secondary to fecal disimpaction. Sheikh catheter was placed and constipation was treated aggressively. Adnexal mass was found on CT of the abdomen and pelvis and [facility] was consulted, along with oncology. Pelvic ultrasound was ordered. Showed appearance of ovarian neoplasm. Patient failed voiding trial before discharge and was sent home with a portable catheter. Was started on bethanechol and referred to urology and gynecology. Patient followed up with gynecology and urology. Catheter was removed 2 weeks ago after seeing urology and patient was given a self cath. It is uncertain whether patient was regularly using it. Patient also was due to have an appointment with gynecology later this month. She states that since last hospitalization, she has been taking daily stool softeners and taking medications as prescribed. She believes that she has been voiding and having adequate bowel movements. States that her urination is more frequent lately and that she has been having diarrhea. Denies any burning with urination, fevers, hematuria, recent illness/flulike illness, nausea vomiting. (Mely Pitts MD R1) History of Present Illness 57-year-old -[place] female presenting to the emergency department with lower abdominal pain radiating to bilateral flanks. This is been going on for 1 week but states that this is been getting worse over the last several days. She was hospitalized for similar complaints at the end of August 2017, subsequently diagnosed and treated for urinary retention, constipation and E. coli ESBL bacteremia/uremia with ertapenem and discharged to home on 10/02/17. She was discharged with a Sheikh catheter in place after failing a voiding trial and subsequently followed up with urology approximately 2 weeks ago and had her Sheikh catheter removed. She had completed a 14 day course of the antibiotic and states that she was doing well. She states that she has been having regular bowel movements, although they have been loose, watery, and described as diarrhea like. She also states that she has been urinating normally but has had pain with urination over the last 2 days. On initial evaluation in the emergency department, she was found to have acute kidney injury with a creatinine of 5.6 and bilateral hydronephrosis with a distended bladder on CT scan. Sheikh catheter was placed in 1.8 L of clear/blood -tinged urine was obtained. The CT scan also endorses large amounts of stool in the colon as well as a stable ovarian mass. She is scheduled to follow-up with gynecology in the next week or so for possible biopsy of the ovarian lesion. She denies any fevers or chills, she denies any nausea or vomiting, she denies any chest pain or palpitations. (Sj Ambrose MD) Review of Systems Constitutional: DENIES: Fatigue, Fever Endocrine: DENIES: Polydipsia, Polyuria Eyes: DENIES: Diplopia, Vision loss Ears, nose, mouth, throat: DENIES: Throat pain, Running Nose Respiratory: DENIES: Cough, Shortness of breath Cardiovascular: DENIES: Chest pain, Palpitations Gastrointestinal: DENIES: Bloody stools, Constipation, Difficulty Swallowing Genitourinary: DENIES: Urinary incontinence, Urgency Musculoskeletal: DENIES: Joint pain Integumentary: DENIES: Abnormal pigmentation Hematologic/lymphatic: DENIES: Bruising Immunologic/allergic: DENIES: Eczema Neurologic: DENIES: Headache, Poor Balance (Mely Pitts MD R1) Other General: Denies fevers or chills. PULM: Denies coughing or shortness of breath. CV: no chest pain or palpitations. GI: Lower abdominal pain radiating to bilateral flanks : Discomfort with urination (Sj Ambrose MD) Past Family Social History Past Medical History Diabetes mellitus Hypertension Hyperlipidemia History of urinary retention History of constipation Past Surgical History broken right ankle 1987 Left knee (Mely Pitts MD R1) Allergies: Coded Allergies: No Known Allergies (Verified Allergy, Unknown, 10/30/17) Family History Mother - - CVA 1983 Father - - brain cancer / 1979 Social History EtOH - none since 1992 Tobacco - 1.5 cigarettes per day x 2 years Drugs - none Lives alone in [place] (Mely Pitts MD R1) Physical Exam Vital Signs Vital Signs Date Time Temp Pulse Resp B/P (MAP) Pulse Ox O2 Delivery O2 Flow Rate FiO2 10/30/17 07:36 98.5 113 17 167/77 (107) 100 Physical Exam GENERAL: This is an overweight -[place] woman laying in bed appearing in pain. SKIN: Cool and dry. HEAD: Atraumatic. Normocephalic. No temporal or scalp tenderness. EYES: Pupils equal round and reactive. Extraocular motions intact. No scleral icterus. No injection or drainage. ENT: Nose without bleeding, purulent drainage or septal hematoma. Throat without erythema, tonsillar hypertrophy or exudate. Uvula midline. Airway patent. CARDIOVASCULAR: Regular rate and rhythm without murmurs, gallops, or rubs. RESPIRATORY: Clear to auscultation. Breath sounds equal bilaterally. No wheezes , rales, or rhonchi. GASTROINTESTINAL: Abdomen soft, non-tender, nondistended. No hepato-splenomegaly , or palpable masses. No guarding. MUSCULOSKELETAL: Extremities without clubbing, cyanosis, or edema. No joint tenderness, effusion, or edema noted. No calf tenderness. NEUROLOGICAL: Awake and alert. No focal deficits. Motor and sensory grossly within normal limits. Normal speech. (Mely Pitts MD R1) Physical Exam CONSTITUTIONAL/GEN: Mildly disheveled and uncomfortable appearing - [place] female, lying in bed. EYES: conjunctiva normal, PERRLA, EOMI. LUNGS: clear A-P, respiratory effort is normal. CARDIOVASCULAR: Mildly tachycardic, regular rhythm without murmur GI/ABD: Diffusely tender in the lower quadrants and suprapubic region, mild guarding without rebound or rigidity. : Bilateral CVA tenderness SKIN: color normal, no rashes noted. PSYCH/MENTAL STATUS: Alert and oriented x 3. (Sj Ambrose MD) Caprini VTE Risk Assessment Caprini VTE Risk Assessment: Mod/High Risk (score >= 2) Caprini Risk Assessment Model Point Value = 1 Point Value = 2 Point Value = 3 Point Value = 5 Age 41-60 Minor surgery BMI > 25 kg/m2 Swollen legs Varicose veins or History of unexplained or recurrent spontaneous Oral contraceptives or hormone replacement Sepsis (< 1 month) Serious lung disease, including pneumonia (< 1 month) Abnormal pulmonary function Acute myocardial infarction Congestive heart failure (< 1 month) History of inflammatory bowel disease Medical patient at bed rest Age 61-74 Arthroscopic surgery Major open surgery (> 45 min) Laparoscopic surgery (> 45 min) Malignancy Confined to bed (> 72 hours) Immobilizing plaster cast Central venous access Age >= 75 History of VTE Family history of VTE Factor V Leiden Prothrombin [id number] Lupus anticoagulant Anticardiolipin antibodies Elevated serum homocysteine Heparin-induced thrombocytopenia Other congenital or acquired thrombophilia Stroke (< 1 month) Elective arthroplasty Hip, pelvis, or leg fracture Acute spinal cord injury (< 1 month) Prophylaxis Regimen Total Risk Factor Score Risk Level Prophylaxis Regimen 0-1 Low Early ambulation 2 Moderate Order ONE of the following: *Sequential Compression Device (SCD) *Heparin 5000 units SQ BID 3-4 Higher Order ONE of the following medications: *Heparin 5000 units SQ TID *Enoxaparin/Lovenox 40 mg SQ daily (WT < 150 kg, CrCl > 30 mL/min) *Enoxaparin/Lovenox 30 mg SQ daily (WT < 150 kg, CrCl > 10-29 mL/min) *Enoxaparin/Lovenox 30 mg SQ BID (WT < 150 kg, CrCl > 30 mL/min) AND/OR *Sequential Compression Device (SCD) 5 or more Highest Order ONE of the following medications: *Heparin 5000 units SQ TID (Preferred with Epidurals) *Enoxaparin/Lovenox 40 mg SQ daily (WT < 150 kg, CrCl > 30 mL/min) *Enoxaparin/Lovenox 30 mg SQ daily (WT < 150 kg, CrCl > 10-29 mL/min) *Enoxaparin/Lovenox 30 mg SQ BID (WT < 150 kg, CrCl > 30 mL/min) AND *Sequential Compression Device (SCD) (AbidMely MD R1) Assessment and Plan Assessment and Plan Patient is a 57-year-old female with a history of diabetes mellitus and constipation admitted for SANDY, urinary retention, hematuria, and fecal impaction. Plan to avoid nephrotoxic medications, supportive care, consult urology, further assess hematuria. Code Status Full Discussed Condition With Dr. Ambrose (Mely Pitts MD R1) Attending Attestation THIS CASE WAS DISCUSSED WITH THE RESIDENT PHYSICIANS. I HAVE REVIEWED THE RECORD AND AGREE WITH THE ABOVE NOTE AND PLAN OF CARE WAS DISCUSSED. I HAVE AUTHORIZED THE ORDER FOR ADMISSION TO AN IN-PATIENT STATUS. Patient was examined by myself after discussion with the resident physician and I have read the above H&P and reviewed this with the patient I was involved in all medical decision making for this patient and agree with the H&P as documented by the resident physician Sj Ambrose MD (Sj Ambrose MD) Problem List: (1) SANDY (acute kidney injury) ICD Codes: N17.9 - Acute kidney failure, unspecified Status: Acute Plan: BUN 47. Baseline is 10-12 Creatinine 5.68. Baseline appears to be 0.88- 0.89. Highest value last hospitalization was 2.63 GFR of 9. Baseline appears to be 65 Urinalysis shows moderate occult blood, protein, and WBCs. Differential: Concern for ATN. An obstructive uropathy secondary to fecal impaction We will provide IV fluids and maintenance for now to treat the SANDY Avoid nephrotoxic medication (FLORENTINO inhibitors, NSAIDs, antibiotics) Monitor I's and O's Consult nephrology We will order urine sodium to further assess etiology (2) Pyuria ICD Codes: N39.0 - Urinary tract infection, site not specified Status: Acute Plan: Urinalysis shows pyuria with WBC count 22 Patient has a history of ESBL positive urinary tract infection Vitals stable, no elevated white count Symptoms are likely secondary to hydronephrosis, urinary retention, kidney injury We will avoid antibiotics for now Follow-up blood cultures and urine cultures (3) Hyperkalemia ICD Codes: E87.5 - Hyperkalemia Status: Acute Plan: Calcium level of 5.2 on admission Plan to order repeat potassium level to recheck If potassium remains elevated, consider calcium gluconate versus bicarb versus albuterol (4) Fecal impaction ICD Codes: K56.41 - Fecal impaction Status: Resolved Plan: Status post 2 g glycerin suppositories in the ED patient required multiple enemas on last hospitalization Debi-Colace twice daily ordered Magnesium hydroxide as needed, senna coat as needed, lactulose as needed We will order MiraLAX to be used daily We will ensure the patient has bowel movement daily Follow GoLYTELY ordered for tomorrow (5) Abdominal pain ICD Codes: R10.9 - Unspecified abdominal pain Status: Acute Plan: May be secondary to fecal impaction versus bilateral hydronephrosis versus obstructive uropathy Avoid nephrotoxic medications for now Provide IV Tylenol for pain control (6) Hypertension ICD Codes: I10 - Essential (primary) hypertension Status: Chronic Plan: Takes lisinopril 5 mg daily, amlodipine 10 mg daily, and hydrochlorothiazide 25 mg daily at home Hold hydrochlorothiazide and lisinopril to preserve renal function Continue amlodipine We will monitor overnight. Provide clonidine 0.1 mg every 6 hours as needed for blood pressure greater than 180/100 (7) Anxiety and depression ICD Codes: F41.9 - Anxiety disorder, unspecified; F32.9 - Major depressive disorder, single episode, unspecified Status: Chronic Plan: Continue home venlafaxine 37.5 mg daily (8) Diabetes mellitus ICD Codes: E11.9 - Type 2 diabetes mellitus without complications Status: Acute Plan: Takes metformin 1 g twice daily, Lantus 36 units nightly, and 5 mg glipizide p.o. twice daily before meals Low-dose sliding scale for now (9) Bilateral hydronephrosis ICD Codes: N13.30 - Unspecified hydronephrosis Plan: CT abdomen shows stable bilateral neck hydronephrosis and hydroureter, right greater than left. No associated stone disease Stable since last admission Etiology likely fecal impaction Urology consulted (10) Ovarian mass ICD Codes: N83.9 - Noninflammatory disorder of ovary, fallopian tube and broad ligament, unspecified Status: Acute Plan: Patient will need to follow-up with [facility] outpatient CA-125 ordered (11) FEN Plan: IV fluids: Maintenance rate Electrolytes: Control as needed Nutrition: Clear liquid diet for now until constipation improves DVT prophylaxis: SCDs, heparin (Mely Pitts MD R1) Physician Certification 2 Midnight Certification Type: Admission for Inpatient Services Order for Inpatient Services The services are ordered in accordance with Medicare regulations or non- Medicare payer requirements, as applicable. In the case of services not specified as inpatient-only, they are appropriately provided as inpatient services in accordance with the 2-midnight benchmark. Estimated LOS (days): 2 2 days is the estimated time the patient will need to remain in the hospital, assuming treatment plan goals are met and no additional complications. Post-Hospital Plan: Not yet determined (Mely Pitts MD R1) Problem Qualifiers (1) Abdominal pain: Qualified Codes: R10.30 - Lower abdominal pain, unspecified (2) Diabetes mellitus: Qualified Codes: E11.8 - Type 2 diabetes mellitus with unspecified complications Mely Pitts MD R1 October 30, 2017 09:21 Sj Ambrose MD October 30, 2017 16:16
[2017-10-30 09:40] LABS: AUTOMATED NEUTROPHIL # 6.9 TH/MM3 (1.8-7.7); BASOPHIL # 0.1 TH/MM3 (0-0.2); EOSINOPHIL # 0.3 TH/MM3 (0-0.4); EOSINOPHIL % 3.4 % (0.0-4.0); HEMATOCRIT 31.2 % (35.0-46.0); HEMOGLOBIN 9.9 GM/DL (11.6-15.3); LYMPH % 15.2 % (9.0-44.0); LYMPHOCYTE # 1.4 TH/MM3 (1.0-4.8); MEAN CELL VOLUME 68.7 FL (80.0-100.0); MEAN CORPUSCULAR HEMOGLOBIN 21.7 PG (27.0-34.0); MEAN CORPUSCULAR HGB CONC 31.7 % (32.0-36.0); MEAN PLATELET VOLUME 8.1 FL (7.0-11.0); MONO % 4.4 % (0.0-8.0); MONOCYTE # 0.4 TH/MM3 (0-0.9); PLATELET COUNT 279 TH/MM3 (150-450); RED BLOOD COUNT 4.54 MIL/MM3 (4.00-5.30); RED CELL DISTRIBUTION WIDTH 17.4 % (11.6-17.2); WHITE BLOOD COUNT 9.1 TH/MM3 (4.0-11.0)
[2017-10-30 09:56] LABS: ALT (GPT) 14 U/L (10-53)
[2017-10-30 09:58] LABS: ALKALINE PHOSPHATASE 179 U/L (45-117); TOTAL BILIRUBIN ADULT 0.2 MG/DL (0.2-1.0); TOTAL PROTEIN 7.1 GM/DL (6.4-8.2)
[2017-10-30 10:03] LABS: ALBUMIN 2.9 GM/DL (3.4-5.0); AST (GOT) 13 U/L (15-37); BICARBONATE 18.9 MEQ/L (21.0-32.0); BLOOD UREA NITROGEN 45 MG/DL (7-18); CALCIUM 9.1 MG/DL (8.5-10.1); CHLORIDE 109 MEQ/L (98-107); GLOMERULAR FILTRATION RATE 9 ML/MIN (>89); GLUCOSE,RANDOM 147 MG/DL (74-106); SODIUM (NA) 138 MEQ/L (136-145)
[2017-10-30] MEDS ORDERED: ACETAMINOPHEN 325 MG TAB PO PRN (12:00)
[2017-10-30] MEDS ORDERED: ZOLPIDEM TARTRATE 5 MG TAB PO PRN (12:00)
[2017-10-30] MEDS: INSULIN ASPART SUPPLEMENTAL SCALE SQ SCH ×3 (12:00→19:59)
[2017-10-30] MEDS ORDERED: ONDANSETRON HCL 4 MG/2 ML VIAL IVP PRN (12:00)
[2017-10-30 13:40] LABS: BICARBONATE 20.5 MEQ/L (21.0-32.0); CALCIUM 9.3 MG/DL (8.5-10.1); CREATININE 5.11 MG/DL (0.50-1.00)
[2017-10-30] MEDS: HYDROCHLOROTHIAZIDE 25 MG TAB PO SCH (13:50)
[2017-10-30] MEDS: HEPARIN SODIUM - SQ 10,000 UNITS/ML VIAL SQ SCH (13:50)
[2017-10-30] MEDS: ACETAMINOPHEN 1000 MG/100 ML 100 ML IV SCH ×2 (13:50→19:58)
[2017-10-30] MEDS: VENLAFAXINE HCL XR 37.5 MG CAP PO SCH (13:52)
[2017-10-30] MEDS: SODIUM CHLOR 0.9% 1000 ML INJ 1,000 ML IV SCH ×2 (15:34→19:58)
--- NOTE | 2017-10-30 15:58 | PD.CONS ---
HPI Service Nephrology Consult Requested By Reason for Consult Acute Renal failure Primary Care Physician No Primary Care Physician History of Present Illness This is a 57 y/o AAF who had normal renal function in September. She came to ER for abdominal pain and difficulty voiding x 1-2 days. On arrival imaging showed distended bladder and bilateral hydronephrosis. A alcaraz was placed, she has excellent urine output. We were consulted to assist with management. Her creatinine was 5.6, improved to 5.1. Her hyperkalemia improved and K is now 5.2. A few months ago she also came to ER for urinary retention, had a Alcaraz placed and was discharged home with it. She later followed with urology and [facility] for newly found adnexal mass. There is an appointment this week to discuss biopsy of the lesion. She also had a UTI during her last visit, E coli. She has been started on Ertapenem this admission. She is a full code. (Amber Mckinney) Review of Systems Constitutional: DENIES: Fatigue, Weight gain Respiratory: DENIES: Sputum production, Shortness of breath Cardiovascular: DENIES: Chest pain Gastrointestinal: COMPLAINS OF: Abdominal pain, Constipation, DENIES: Diarrhea , Nausea, Vomiting, Difficulty Swallowing (Amber Mckinney) Past Family Social History Allergies: Coded Allergies: No Known Allergies (Verified Allergy, Unknown, 10/30/17) Past Medical History Diabetes mellitus Hypertension Hyperlipidemia History of urinary retention History of constipation Past Surgical History R ankle L knee Reported Medications [Lactulose Liq] 30 ML Syrp 30 Ml PO DAILY Epinephrine Inj 1 Mg/Ml (1 Ml) Inj 0.3 Mg SQ ONCE PRN Give with any signs of respiratory distress. Epinephrine Inj 1 Mg/Ml (1 Ml) Inj 0.3 Mg IV PUSH ONCE PRN Solu-Cortef Inj (Hydrocortisone Sodium Succinate) 250 Mg/2 Ml Inj 250 Mg IV PUSH ONCE PRN Give over 30-60 seconds. Invanz Inj (Ertapenem) 1 Gm Addvial 1 Gm IV Q24H 14 Days ADMINISTER IN 100ML NS Ultram (Tramadol HCl) 50 Mg Tab 50 Mg PO Q4H PRN Urecholine (Bethanechol Chloride) 25 Mg Tab 25 Mg PO Q8HR Lantus Inj (Insulin Glargine) 1,000 Unit/10 Ml Vial 36 Units SQ HS Norvasc (Amlodipine Besylate) 10 Mg Tab 10 Mg PO DAILY Ambien (Zolpidem Tartrate) 5 Mg Tab 5 Mg PO HS PRN Hydrochlorothiazide 25 Mg Tab 25 Mg PO DAILY Effexor XR 24 HR (Venlafaxine HCl) 37.5 Mg Cap 37.5 Mg PO DAILY Metformin (Metformin HCl) 1,000 Mg Tab 1,000 Mg PO BIDPC With meals Lisinopril 5 Mg Tab 5 Mg PO DAILY Glipizide 5 Mg Tab 5 Mg PO BIDAC Take 30 minutes before a meal Active Ordered Medications Current Medications Medications (Trade) Dose Ordered Sig/Elroy Route Start Time Stop Time Status Last Admin (ASP Crit: Doc ESBL, MDR A baumannii or P aer) 1 UNSCH X1 PRN XX 10/30/17 08:15 10/31/17 08:14 ([facility] [place] [facility] Information) 1 UNSCH X1 PRN XX 10/30/17 08:15 10/31/17 08:14 (NS Flush) 2 ml UNSCH PRN IV FLUSH 10/30/17 09:15 (NS Flush) 2 ml BID IV FLUSH 10/30/17 21:00 (Narcan Inj) 0.4 mg UNSCH PRN IV PUSH 10/30/17 09:15 (Debi-Colace) 1 tab BID PO 10/30/17 21:00 (Milk Of Magnesia Liq) 30 ml Q12H PRN PO 10/30/17 09:15 (Senokot) 17.2 mg Q12H PRN PO 10/30/17 09:15 (Dulcolax Supp) 10 mg DAILY PRN RECTAL 10/30/17 09:15 (Lactulose Liq) 30 ml DAILY PRN PO 10/30/17 09:15 (Norvasc) 10 mg DAILY PO 10/30/17 12:00 10/30/17 13:50 (Hydrodiuril) 25 mg DAILY PO 10/30/17 12:00 10/30/17 13:50 (Effexor Xr) 37.5 mg DAILY PO 10/30/17 12:00 10/30/17 13:52 (Ambien) 5 mg HS PRN PO 10/30/17 12:00 Sodium Chloride 1,000 ml @ 130 mls/hr Q7H42M IV 10/30/17 11:49 (NS Flush) 2 ml UNSCH PRN IV FLUSH 10/30/17 12:00 (NS Flush) 2 ml BID IV FLUSH 10/30/17 21:00 (Tylenol) 650 mg Q4H PRN PO 10/30/17 12:00 (Zofran Inj) 4 mg Q6H PRN IVP 10/30/17 12:00 (Heparin Inj) 5,000 units Q12H SQ 10/30/17 12:00 10/30/17 13:50 (Narcan Inj) 0.4 mg UNSCH PRN IV PUSH 10/30/17 12:00 (NovoLOG SUPPLEMENTAL SCALE) 1 ACHS SLIDING SCALE SQ 10/30/17 12:00 Acetaminophen 100 ml @ 400 mls/hr Q6H IV 10/30/17 14:00 10/31/17 08:14 10/30/17 13:50 (Narcan Inj) 0.4 mg UNSCH PRN IV PUSH 10/30/17 12:00 Ertapenem 500 mg/ Sodium Chloride 50 ml @ 100 mls/hr Q24H IV 10/31/17 08:00 Family History Non contributory Social History Occasional smoker No ETOH Single Lives alone Independent (Amber Mckinney) Physical Exam Vital Signs Vital Signs Date Time Temp Pulse Resp B/P (MAP) Pulse Ox O2 Delivery O2 Flow Rate FiO2 10/30/17 15:17 20 10/30/17 10:41 98.1 106 20 146/76 (99) 98 10/30/17 07:36 98.5 113 17 167/77 (107) 100 Physical Exam Middle aged AAF lying in bed Awake, alert, not in distress S1/S2, RRR no murmurs Lungs clear Abd obese, soft, NT/ND alcaraz draining dark kaity but clear urine Ext no edema skin intact Laboratory Laboratory Tests Test 10/30/17 09:25 10/30/17 13:00 White Blood Count 9.1 Red Blood Count 4.54 Hemoglobin 9.9 Hematocrit 31.2 Mean Corpuscular Volume 68.7 Mean Corpuscular Hemoglobin 21.7 Mean Corpuscular Hemoglobin Concent 31.7 Red Cell Distribution Width 17.4 Platelet Count 279 Mean Platelet Volume 8.1 Neutrophils (%) (Auto) 76.0 Lymphocytes (%) (Auto) 15.2 Monocytes (%) (Auto) 4.4 Eosinophils (%) (Auto) 3.4 Basophils (%) (Auto) 1.0 Neutrophils # (Auto) 6.9 Lymphocytes # (Auto) 1.4 Monocytes # (Auto) 0.4 Eosinophils # (Auto) 0.3 Basophils # (Auto) 0.1 CBC Comment DIFF FINAL Differential Comment Blood Urea Nitrogen 45 44 Creatinine 5.60 5.11 Random Glucose 147 118 Total Protein 7.1 Albumin 2.9 Calcium Level 9.1 9.3 Alkaline Phosphatase 179 Aspartate Amino Transf (AST/SGOT) 13 Alanine Aminotransferase (ALT/SGPT) 14 Total Bilirubin 0.2 Sodium Level 138 142 Potassium Level 5.9 5.2 Chloride Level 109 112 Carbon Dioxide Level 18.9 20.5 Anion Gap 10 10 Estimat Glomerular Filtration Rate 9 11 (Amber Mckinney) Result Diagram: 10/30/17 0925 10/30/[address] from 10/30 CONCLUSION: 1. While there is less distention of the urinary bladder when compared to the prior, there is still bladder wall thickening. 2. Stable bilateral hydronephrosis and hydroureter, right greater than left. No associated stone disease. 3. Stable, lobulated mass lesion in the left pelvis measures 10.4 x 8.0 x 6.8 cm and is presumably associated with the left ovary. This should be considered an ovarian neoplasm until proven otherwise 4. Large amount of stool and contrast in the rectal vault with possibly an element of fecal impaction. No obstruction, however. (Amber Mckinney) Assessment and Plan Problem List: (1) SANDY (acute kidney injury) ICD Codes: N17.9 - Acute kidney failure, unspecified Status: Acute Plan: Normal renal function at baseline SANDY due to obstructive uropathy She is non oliguric Expect improvement in renal function, repeat labs in AM IVF not required, PO is adequate Avoid nephrotoxic agents Await urology consultation and assistance with management (2) Bilateral hydronephrosis ICD Codes: N13.30 - Unspecified hydronephrosis Plan: Etiology is not clear, may be due to pelvic mass Urology evaluation pending Alcaraz in place, see above (3) Adnexal mass ICD Codes: N94.9 - Unspecified condition associated with female genital organs and menstrual cycle Plan: Has appointment for possible biopsy this week May need evaluation this hospitalization (Amber Mckinney) Assessment and Plan patient was seen and examined. SANDY due to obstructive uropathy. Alcaraz has been placed. Agree with above assessment and plan. (Bruce Kang MD) Amber Mckinney October 30, 2017 15:58 Bruce Kang MD October 31, 2017 10:12
[2017-10-30] MEDS ORDERED: POLYETHYLENE GLYCOL 17 GM PKG PO ONE (17:15)
[2017-10-30] MEDS ORDERED: cloNIDine HCL 0.1 MG TAB PO PRN (17:15)
[2017-10-30] MEDS: DOCUSATE SODIUM 50 MG/SENNA 8.6 MG TAB PO SCH (19:58)
[2017-10-30] MEDS: SODIUM CHLORIDE 0.9% FLUSH 10 ML FLUSH IV FLUSH SCH ×2 (19:59)
[2017-10-30 21:47] LABS: CREATININE, RANDOM URINE 13.9 MG/DL
[2017-10-31] VITALS (8 sets, daily range): BP systolic 142–186; BP diastolic 73–86; PULSE 103–113; RESP 16–17; TEMP 97.8–98.7; O2SAT 96–100
[2017-10-31] MEDS: HEPARIN SODIUM - SQ 10,000 UNITS/ML VIAL SQ SCH ×2 (00:21→12:20)
[2017-10-31] MEDS: ACETAMINOPHEN 1000 MG/100 ML 100 ML IV SCH ×2 (01:03→08:04)
[2017-10-31] MEDS ORDERED: PEG (High)/E-LYTE SOLN 4000 ML BTL PO ONE (08:00)
[2017-10-31] MEDS ORDERED: ERTAPENEM 500 MG/NS 50 ML IV SCH ×2 (08:00)
[2017-10-31] MEDS: SODIUM CHLOR 0.9% 1000 ML INJ 1,000 ML IV SCH ×3 (08:03→14:06)
[2017-10-31] MEDS: HYDROCHLOROTHIAZIDE 25 MG TAB PO SCH (08:04)
[2017-10-31] MEDS: INSULIN ASPART SUPPLEMENTAL SCALE SQ SCH ×4 (08:13→21:00)
[2017-10-31] MEDS: SODIUM CHLORIDE 0.9% FLUSH 10 ML FLUSH IV FLUSH SCH ×4 (08:13→20:08)
[2017-10-31 08:18] LABS: AUTOMATED NEUTROPHIL # 5.2 TH/MM3 (1.8-7.7); BASOPHIL # 0.1 TH/MM3 (0-0.2); BASOPHIL % 1.2 % (0.0-2.0); EOSINOPHIL # 0.5 TH/MM3 (0-0.4); EOSINOPHIL % 5.8 % (0.0-4.0); HEMOGLOBIN 9.9 GM/DL (11.6-15.3); LYMPH % 23.6 % (9.0-44.0); LYMPHOCYTE # 1.9 TH/MM3 (1.0-4.8); MEAN CELL VOLUME 69.1 FL (80.0-100.0); MEAN CORPUSCULAR HEMOGLOBIN 21.4 PG (27.0-34.0); MEAN PLATELET VOLUME 8.2 FL (7.0-11.0); MONOCYTE # 0.5 TH/MM3 (0-0.9); NEUT % 63.4 % (16.0-70.0); PLATELET COUNT 304 TH/MM3 (150-450); RED BLOOD COUNT 4.62 MIL/MM3 (4.00-5.30); RED CELL DISTRIBUTION WIDTH 17.8 % (11.6-17.2); WHITE BLOOD COUNT 8.2 TH/MM3 (4.0-11.0)
[2017-10-31] MEDS: VENLAFAXINE HCL XR 37.5 MG CAP PO SCH (08:22)
[2017-10-31] MEDS: DOCUSATE SODIUM 50 MG/SENNA 8.6 MG TAB PO SCH ×2 (08:22→20:08)
[2017-10-31 08:51] LABS: ALBUMIN 2.7 GM/DL (3.4-5.0); ALKALINE PHOSPHATASE 169 U/L (45-117); ALT (GPT) 13 U/L (10-53); AST (GOT) 7 U/L (15-37); BICARBONATE 20.9 MEQ/L (21.0-32.0); BLOOD UREA NITROGEN 31 MG/DL (7-18); CALCIUM 8.7 MG/DL (8.5-10.1); CHLORIDE 113 MEQ/L (98-107); CREATININE 3.59 MG/DL (0.50-1.00); GLOMERULAR FILTRATION RATE 16 ML/MIN (>89); GLUCOSE,RANDOM 153 MG/DL (74-106); MAGNESIUM 2.2 MG/DL (1.5-2.5); PHOSPHORUS 3.6 MG/DL (2.5-4.9); SODIUM (NA) 142 MEQ/L (136-145); TOTAL BILIRUBIN ADULT 0.3 MG/DL (0.2-1.0)
[2017-10-31] MEDS: POLYETHYLENE GLYCOL 17 GM PKG PO SCH (09:10)
--- NOTE | 2017-10-31 09:24 | MB ---
cc: Noé Hernandezn Stas DO DATE: 10/31/2017 HISTORY OF PRESENT ILLNESS: Ms. Nathan is known to the urology service from her prior admission. She is a 57-year-old black female who was admitted in acute renal failure with a creatinine elevation at 5.68 and findings of severe constipation on CT scan along with bilateral hydronephrosis and urinary retention. A Sheikh catheter in the emergency was placed for approximately 2 liters of fluid. Hematuria was noted. The patient was admitted approximately one month ago with the same problem and followed up in the office 2 weeks later and was instructed on clean intermittent catheterization. It does not appear she has been doing this. Furthermore, it seems that she is not following her bowel regimen to prevent her constipation. Today, the urine is clear on exam and her creatinine has come down somewhat to 4.9 from 5.9 on admission. ALLERGIES: SHE HAS NO KNOWN DRUG ALLERGIES. MEDICATIONS: Please refer to the chart. PAST MEDICAL HISTORY: Includes diabetes mellitus, hypertension, hyperlipidemia, urinary retention with constipation and an ovarian mass. PAST SURGICAL HISTORY: Right ankle surgery in 1986 and left knee surgery. FAMILY HISTORY: Noted for CVA and brain cancer. SOCIAL HISTORY: Denies alcohol. She currently smokes one and a half cigarettes per day. Denies drug usage. REVIEW OF SYSTEMS: Presently, she denies fever, chills, or chest pain. Presently, denies abdominal pain. She does note constipation. Denies joint pain, skin bruising, lesions, eczema, headache, gait disturbances, or bleeding disorders. The remaining review of systems were reviewed and were negative. PHYSICAL EXAMINATION: VITAL SIGNS: Today, temperature 98.4, heart rate 104, respiratory rate 16, blood pressure 150/77. GENERAL: She is a well-developed, well-nourished 57-year-old female in no acute distress. HEENT: Normocephalic, atraumatic. Pupils equal, round, regular, reactive to light. Extraocular movements intact. NECK: Supple. HEART: Regular rate and rhythm. LUNGS: Clear. ABDOMEN: Soft, nontender, nondistended. Sheikh catheter is in place draining clear urine. EXTREMITIES: Show no evidence of cyanosis, clubbing, or edema. NEUROLOGIC: Cranial nerves 2-12 are intact. LABORATORY DATA: White count today is 8.2, hemoglobin 9.9, hematocrit 32.0, platelet count of 304. Sodium 142, potassium 4.9, chloride 113, CO2 20.9, BUN 31, creatinine 3.59, down from 5.6, glucose of 153. Urinalysis shows 167 red cells and 22 white cells. Urine culture and blood culture results are currently pending. CT scan of the abdomen and pelvis showed bladder wall thickening, distended bladder, stable bilateral hydronephrosis and hydroureter, right greater than left. No stones were identified. Left pelvic mass 10 x 8 x 6 associated with the left ovary. ASSESSMENT: This is a 57-year-old female with recurrent constipation and urinary retention and acute kidney injury. RECOMMENDATIONS: Recommend a MEDICAL UNIT SECRETARY consult to address the left ovarian mass. Maintain Sheikh catheter now. Continue Urecholine. Would recommend patient following CIC regimen and bowel regimen to prevent constipation. Thank you for the consult and allowing me to participate in the care of this patient. DO NOEMY Sullivan/LENORA , 09:05 AM , 09:23 AM
--- NOTE | 2017-10-31 11:21 | HHI.FPPN ---
Subjective Remarks Patient states that she does not have that much of an appetite, but has been come completely eating her meals on the clear liquid diet Was tachycardic overnight. Blood pressure 149/74-160/80 States that she is feeling okay today, denies any chest pain or shortness of breath. I/O: 2.6/5.4. Urine is clear, no further hematuria has been noted (Mely Pitts MD R1) Objective Vitals Vital Signs Date Time Temp Pulse Resp B/P (MAP) Pulse Ox O2 Delivery O2 Flow Rate FiO2 10/31/17 08:00 98.7 105 17 168/80 (109) 100 10/31/17 08:00 Room Air 10/31/17 08:00 106 10/31/17 05:25 98.4 104 16 150/77 (101) 99 10/31/17 04:00 Room Air 10/31/17 04:00 107 10/31/17 00:53 98.1 104 16 149/74 (99) 96 10/31/17 00:00 Room Air 10/31/17 00:00 107 10/30/17 21:45 107 10/30/17 21:38 98.0 110 16 146/80 (102) 98 10/30/17 21:00 Room Air 10/30/17 20:40 98.4 109 18 124/71 (88) 97 10/30/17 20:28 18 10/30/17 14:37 98.4 86 20 143/73 (96) 96 10/30/17 13:45 98.4 112 20 144/85 (104) 97 I/O 10/30/17 10/30/17 10/30/17 10/31/17 10/31/17 10/31/17 07:00 15:00 23:00 07:00 15:00 23:00 Intake Total 100 ml 635 ml 1950 ml Output Total 1800 ml 240 ml 3400 ml 1150 ml Balance -1700 ml 395 ml -1450 ml -1150 ml Intake Oral 60 ml 1000 ml IV Total 100 ml 155 ml 950 ml TPN/PPN 420 ml Output Urine Total 1800 ml 240 ml 3400 ml 1150 ml # Voids 0 # Bowel Movements 0 (Mely Pitts MD R1) Result Diagram: 10/31/17 0742 10/31/17 0742 Objective Remarks O. CONSTITUTIONAL/GEN: This is an overweight -Burmese lady resting in bed, no acute distress. EYES: conjunctiva normal, EOMI. ENT: Mouth and pharynx normal. NECK: Supple LUNGS: clear A-P, respiratory effort is normal. CARDIOVASCULAR: Tachycardic without murmur or gallop. No significant edema. GI/ABD: soft, slight tenderness in the suprapubic region, without organomegaly. : +CVA tenderness NEURO: No focal deficits. Gait is normal SKIN: color normal, no rashes noted. HEME/LYMPH: no bruising, petechia MUSC: back is normal in appearance. Extremities are normal in appearance. PSYCH/MENTAL STATUS: Alert, normal speech. (Mely Pitts MD R1) A/P Assessment and Plan Patient is a 57-year-old female with a history of diabetes mellitus and constipation admitted for SANDY, urinary retention, hematuria, and fecal impaction. Plan to avoid nephrotoxic medications, supportive care, consult urology, further assess hematuria. Discharge Planning urology recommendations and resolution of SANDY D/C likely tomorrow (Mely Pitts MD R1) Attending Attestation Patient examined independently and case discussed with resident physician I have read the above note and agree with the assessment/plan as discussed with me I was involved in all medical decision making for this patient Sj Ambrose MD (Sj Ambrose MD) Problem List: (1) SANDY (acute kidney injury) ICD Codes: N17.9 - Acute kidney failure, unspecified Status: Acute Plan: BUN/creatinine on admission 47/5.68. GFR of 9. Urinalysis showed moderate occult blood, protein, and WBCs. Sheikh catheter is in place, significant urine output Nephrology consulted, appreciate recommendations FENa of 9.6%, indicating post renal/obstructive pathology Continue IV fluids for now to treat the SANDY Avoid nephrotoxic medication (FLORENTINO inhibitors, NSAIDs, antibiotics) Monitor I's and O's We will order urine sodium to further assess etiology (2) Pyuria ICD Codes: N39.0 - Urinary tract infection, site not specified Status: Acute Plan: Urinalysis shows pyuria with WBC count 22 Patient has a history of ESBL positive urinary tract infection Vitals stable, no elevated white count Symptoms are likely secondary to hydronephrosis, urinary retention, kidney injury Avoid antibiotics for now Follow-up blood cultures and urine cultures (3) Fecal impaction ICD Codes: K56.41 - Fecal impaction Status: Resolved Plan: Status post 2 g glycerin suppositories in the ED patient required multiple enemas on last hospitalization Debi-Colace twice daily ordered No bowel movement since yesterday MiraLAX to be used daily GoLYTELY today If no progress, consider enema (4) Abdominal pain ICD Codes: R10.9 - Unspecified abdominal pain Status: Acute Plan: May be secondary to fecal impaction versus bilateral hydronephrosis versus obstructive uropathy Avoid nephrotoxic medications for now Provide IV Tylenol for pain control (5) Hypertension ICD Codes: I10 - Essential (primary) hypertension Status: Chronic Plan: Takes lisinopril 5 mg daily, amlodipine 10 mg daily, and hydrochlorothiazide 25 mg daily at home Hold hydrochlorothiazide and lisinopril to preserve renal function Continue amlodipine Consider clonidine 0.1 mg scheduled twice daily (6) Anxiety and depression ICD Codes: F41.9 - Anxiety disorder, unspecified; F32.9 - Major depressive disorder, single episode, unspecified Status: Chronic Plan: Continue home venlafaxine 37.5 mg daily (7) Diabetes mellitus ICD Codes: E11.9 - Type 2 diabetes mellitus without complications Status: Acute Plan: Takes metformin 1 g twice daily, Lantus 36 units nightly, and 5 mg glipizide p.o. twice daily before meals Low-dose sliding scale (8) Bilateral hydronephrosis ICD Codes: N13.30 - Unspecified hydronephrosis Plan: CT abdomen shows stable bilateral neck hydronephrosis and hydroureter, right greater than left. No associated stone disease Stable since last admission Etiology likely fecal impaction Urology consulted (9) Ovarian mass ICD Codes: N83.9 - Noninflammatory disorder of ovary, fallopian tube and broad ligament, unspecified Status: Acute Plan: Patient will need to follow-up with NURSE ADVOCATE outpatient CA-125 ordered, within normal limits (10) FEN Plan: IV fluids: 1/2 Maintenance rate Electrolytes: Control as needed Nutrition: FULL liquid diet for now until constipation improves DVT prophylaxis: SCDs, heparin (Mely Pitts MD R1) Problem Qualifiers (1) Abdominal pain: Qualified Codes: R10.30 - Lower abdominal pain, unspecified (2) Diabetes mellitus: Qualified Codes: E11.8 - Type 2 diabetes mellitus with unspecified complications Mely Pitts MD R1 October 31, 2017 11:21 Sj Ambrose MD October 31, 2017 17:01
--- NOTE | 2017-10-31 11:30 | HHI.NPPN ---
Subjective Renal Failure: Acute Interval History Renal function is better. Excellent urine output. (Amber Mckinney) Objective Data Data 10/31/17 11/01/17 19:00 07:00 Output Total 1150 ml Balance -1150 ml Output Urine Total 1150 ml Vital Signs Date Time Temp Pulse Resp B/P (MAP) Pulse Ox O2 Delivery O2 Flow Rate FiO2 10/31/17 08:00 98.7 105 17 168/80 (109) 100 10/31/17 08:00 Room Air 10/31/17 08:00 106 10/31/17 05:25 98.4 104 16 150/77 (101) 99 10/31/17 04:00 Room Air 10/31/17 04:00 107 10/31/17 00:53 98.1 104 16 149/74 (99) 96 10/31/17 00:00 Room Air 10/31/17 00:00 107 10/30/17 21:45 107 10/30/17 21:38 98.0 110 16 146/80 (102) 98 10/30/17 21:00 Room Air 10/30/17 20:40 98.4 109 18 124/71 (88) 97 10/30/17 20:28 18 10/30/17 14:37 98.4 86 20 143/73 (96) 96 10/30/17 13:45 98.4 112 20 144/85 (104) 97 (Amber Mckinney) -: 10/31/17 0742 10/31/17 0742 Tubes & Lines: Alcaraz (Amber Mckinney) Physical Exam General Appearance: Well Developed, Well Nourished, Comfortable (Amber Mckinney) Eyes Eye Exam: Pupils Equal (Amber Mckinney) Neck Neck Exam: Neck Supple (Amber Mckinney) Pulmonary Resp Exam: Clear Bilaterally, Breath Sounds Equal (Amber Mckinney) Cardiology CV Exam: Regular, Normal Sinus Rhythm (Amber Mckinney) Gastrointestinal/Abdomen GI Exam: Soft, Non-Tender, Bowel Sounds Present (Amber Mckinney) Musculoskeletal MS Exam: Joints Intact, Normal Gait, Normal Tone (Amber Mckinney) Integumentary Skin Exam: Clear, Warm, Dry (Amber Mckinney) Extremeties Extremities Exam: No Edema, Pedal Pulses Palpable (Ambre Mckinney) Neurologic Neuro Exam: Alert, Awake, Oriented, Speech Clear, Moving All Extremities (Amber Mckinney) Psychiatric Psych Exam: Appropriate Responses (Amber Mckinney) Assessment/Plan Discussed Condition With: Patient Assessment Summary: SANDY/Acute Renal Failure Problem List: (1) SANDY (acute kidney injury) ICD Codes: N17.9 - Acute kidney failure, unspecified Status: Acute Plan: Normal renal function at baseline SANDY due to obstructive uropathy, s/p alcaraz placement Most likely obstruction due to pelvic mass pending urology evaluation, also may need SIEBEL ADMINISTRATOR evaluation She is non oliguric Expect continued improvement in renal function IVF not required Avoid nephrotoxic agents Await urology consultation and assistance with management (2) Bilateral hydronephrosis ICD Codes: N13.30 - Unspecified hydronephrosis Plan: Alcaraz in place, see above (3) Adnexal mass ICD Codes: N94.9 - Unspecified condition associated with female genital organs and menstrual cycle Plan: Has appointment for possible biopsy this week May need evaluation this hospitalization (Amber Mckinney) Plan patient was seen and examined. Agree with above. Renal dysfunction is due to obstructive uropathy. Improving renal function after Alcaraz insertion. (Bruce Kang MD) Amber Mckinney October 31, 2017 11:30 Bruce Kang MD October 31, 2017 21:32
--- NOTE | 2017-10-31 13:57 | HHI.FF ---
Face to Face Verification Diagnosis: (1) Obstructive uropathy (2) SANDY (acute kidney injury) (3) Diabetes mellitus (4) Fecal impaction Home Health Nursing Order: Medical education Signs/symptoms of disease process Diabetic education Medication education-adverse effect Nursing assessment with vital signs Sheikh catheter maintenance I have seen patient Elise Nathan on 10/31/17. My clinical findings support the need for the requested home health care services because: Med compliance is questionable Impaired cognition/judgement I certify that my clinical findings support that this patient is homebound because: Impaired cognitive ability/safety Mely Pitts MD R1 October 31, 2017 13:56
[2017-10-31] MEDS: cloNIDine HCL 0.1 MG TAB PO SCH (20:08)
[2017-11-01] VITALS (7 sets, daily range): BP systolic 133–170; BP diastolic 66–91; PULSE 97–109; RESP 16–18; TEMP 97.8–98.9; O2SAT 98–99
[2017-11-01] MEDS: HEPARIN SODIUM - SQ 10,000 UNITS/ML VIAL SQ SCH ×2 (00:12→12:30)
[2017-11-01] MEDS: SODIUM CHLOR 0.9% 1000 ML INJ 1,000 ML IV SCH (00:12)
[2017-11-01 07:16] LABS: CALCIUM 8.5 MG/DL (8.5-10.1); CREATININE 3.37 MG/DL (0.50-1.00)
[2017-11-01] MEDS: INSULIN ASPART SUPPLEMENTAL SCALE SQ SCH ×2 (08:53→12:29)
[2017-11-01] MEDS: POLYETHYLENE GLYCOL 17 GM PKG PO SCH (08:54)
[2017-11-01] MEDS: VENLAFAXINE HCL XR 37.5 MG CAP PO SCH (08:54)
[2017-11-01] MEDS: SODIUM CHLORIDE 0.9% FLUSH 10 ML FLUSH IV FLUSH SCH ×2 (08:54)
[2017-11-01] MEDS: DOCUSATE SODIUM 50 MG/SENNA 8.6 MG TAB PO SCH (08:54)
[2017-11-01] MEDS: cloNIDine HCL 0.1 MG TAB PO SCH (08:54)
[2017-11-01] MEDS: HYDROCHLOROTHIAZIDE 25 MG TAB PO SCH (08:54)
--- NOTE | 2017-11-01 09:39 | HHI.FPPN ---
Subjective Remarks Patient states that she has had 3 large bowel movements Abdominal pain is resolved Patient underwent voiding trial. States that she voided minimally Bladder scan showed 532 mL's States that she requires assistance with straight cath (Mely Pitts MD R1) Objective Vitals Vital Signs Date Time Temp Pulse Resp B/P (MAP) Pulse Ox O2 Delivery O2 Flow Rate FiO2 11/01/17 05:57 98.9 97 18 148/66 (93) 98 11/01/17 04:00 98 11/01/17 04:00 Room Air 11/01/17 00:48 98.4 98 18 133/72 (92) 99 11/01/17 00:00 97 11/01/17 00:00 Room Air 10/31/17 20:00 Room Air 10/31/17 20:00 104 10/31/17 20:00 98.1 106 16 148/73 (98) 99 10/31/17 16:00 97.8 113 16 142/76 (98) 100 10/31/17 16:00 109 10/31/17 12:00 98.2 106 16 186/86 (119) 100 10/31/17 12:00 103 I/O 10/31/17 10/31/17 10/31/17 11/01/17 11/01/17 11/01/17 07:00 15:00 23:00 07:00 15:00 23:00 Intake Total 1950 ml 150 ml 1940 ml Output Total 3400 ml 1150 ml 4600 ml Balance -1450 ml -1000 ml -2660 ml Intake Oral 1000 ml 1440 ml IV Total 950 ml 150 ml 500 ml Output Urine Total 3400 ml 1150 ml 4600 ml Bladder Scan Volume Amount 178 ml # Bowel Movements 0 2 (Mely Pitts MD R1) Result Diagram: 10/31/17 0742 11/01/17 0630 Objective Remarks O. CONSTITUTIONAL/GEN: This is an overweight -Chilean lady resting in bed, no acute distress. EYES: conjunctiva normal, EOMI. ENT: Mouth and pharynx normal. NECK: Supple LUNGS: clear A-P, respiratory effort is normal. CARDIOVASCULAR: Tachycardic without murmur or gallop. No significant edema. GI/ABD: soft, no tenderness without organomegaly. NEURO: No focal deficits. Gait is normal SKIN: color normal, no rashes noted. HEME/LYMPH: no bruising, petechia MUSC: back is normal in appearance. Extremities are normal in appearance. PSYCH/MENTAL STATUS: Alert, normal speech. (Mely Pitts MD R1) A/P Assessment and Plan Patient is a 57-year-old female with a history of diabetes mellitus and constipation admitted for SANDY, urinary retention, hematuria, and fecal impaction. Plan to avoid nephrotoxic medications, supportive care, consult urology, further assess hematuria. Patient has shown improvement today and plan to discharge with follow-up with urology and PCP and orders to continue straight cath. Discharge Planning Improvement in SANDY, likely discharged today with home health to assist in medication administration and straight catheter assistance. (Mely Pitts MD R1) Attending Attestation Patient examined independently and case discussed with resident physician I have read the above note and agree with the assessment/plan as discussed with me I was involved in all medical decision making for this patient Sj Ambrose MD (Sj Ambrose MD) Problem List: (1) SANDY (acute kidney injury) ICD Codes: N17.9 - Acute kidney failure, unspecified Status: Acute Plan: BUN/creatinine on admission 47/5.68. GFR of 9. Urinalysis showed moderate occult blood, protein, and WBCs. Sheikh catheter is in place, significant urine output Nephrology consulted, appreciate recommendations FENa of 9.6%, indicating post renal/obstructive pathology Improving. BUN/Cr 28/3.37 today Avoid nephrotoxic medication (FLORENTINO inhibitors, NSAIDs, antibiotics) We will need to continue straight catheter at home Follow up with urology (2) Fecal impaction ICD Codes: K56.41 - Fecal impaction Status: Resolved Plan: Status post 2 g glycerin suppositories in the ED patient required multiple enemas on last hospitalization 3 bowel movements so far today from yesterday Patient is status post Debi-Colace, MiraLAX, and GoLYTELY (3) Abdominal pain ICD Codes: R10.9 - Unspecified abdominal pain Status: Resolved Plan: Likely secondary to fecal impaction (4) Hypertension ICD Codes: I10 - Essential (primary) hypertension Status: Chronic Plan: Takes lisinopril 5 mg daily, amlodipine 10 mg daily, and hydrochlorothiazide 25 mg daily at home Hold hydrochlorothiazide and lisinopril to preserve renal function Continue amlodipine Clonidine 0.1 mg scheduled twice daily (5) Anxiety and depression ICD Codes: F41.9 - Anxiety disorder, unspecified; F32.9 - Major depressive disorder, single episode, unspecified Status: Chronic Plan: Continue home venlafaxine 37.5 mg daily (6) Diabetes mellitus ICD Codes: E11.9 - Type 2 diabetes mellitus without complications Status: Acute Plan: Takes metformin 1 g twice daily, Lantus 36 units nightly, and 5 mg glipizide p.o. twice daily before meals Low-dose sliding scale (7) Bilateral hydronephrosis ICD Codes: N13.30 - Unspecified hydronephrosis Plan: CT abdomen shows stable bilateral neck hydronephrosis and hydroureter, right greater than left. No associated stone disease Stable since last admission Etiology likely fecal impaction Urology consulted (8) Ovarian mass ICD Codes: N83.9 - Noninflammatory disorder of ovary, fallopian tube and broad ligament, unspecified Status: Acute Plan: Patient will need to follow-up with BUILDING CONSTRUCTION ESTIMATOR outpatient CA-125 ordered, within normal limits (9) FEN Plan: IV fluids: PO Electrolytes: Control as needed Nutrition: FULL liquid diet until constipation improves DVT prophylaxis: SCDs, heparin (Mely Pitts MD R1) Problem Qualifiers (1) Abdominal pain: Qualified Codes: R10.30 - Lower abdominal pain, unspecified (2) Diabetes mellitus: Qualified Codes: E11.8 - Type 2 diabetes mellitus with unspecified complications Mely Pitts MD R1 November 01, 2017 09:39 Sj Ambrose MD November 01, 2017 15:01
--- NOTE | 2017-11-01 09:51 | HHI.PR ---
Subjective Patient symptoms today Pt seen and examined. Pt is having BM's since taking Maria De Jesus. Objective Vital Signs Vital Signs Date Time Temp Pulse Resp B/P (MAP) Pulse Ox O2 Delivery O2 Flow Rate FiO2 11/01/17 05:57 98.9 97 18 148/66 (93) 98 11/01/17 04:00 98 11/01/17 04:00 Room Air 11/01/17 00:48 98.4 98 18 133/72 (92) 99 11/01/17 00:00 97 11/01/17 00:00 Room Air 10/31/17 20:00 Room Air 10/31/17 20:00 104 10/31/17 20:00 98.1 106 16 148/73 (98) 99 10/31/17 16:00 97.8 113 16 142/76 (98) 100 10/31/17 16:00 109 10/31/17 12:00 98.2 106 16 186/86 (119) 100 10/31/17 12:00 103 Intake & Output 11/01/17 11/01/17 07:00 19:00 Bladder Scan Volume Amount 178 ml Result Diagram: 10/31/17 0742 11/01/17 0630 Objective Remarks Abd:soft,nt,nd Sheikh out and voiding small amounts Medications and IVs Current Medications Medications (Trade) Dose Ordered Sig/Elroy Route Start Time Stop Time Status Last Admin (NS Flush) 2 ml UNSCH PRN IV FLUSH 10/30/17 09:15 (NS Flush) 2 ml BID IV FLUSH 10/30/17 21:00 10/30/17 19:59 (Narcan Inj) 0.4 mg UNSCH PRN IV PUSH 10/30/17 09:15 (Debi-Colace) 1 tab BID PO 10/30/17 21:00 11/01/17 08:54 (Milk Of Magnesia Liq) 30 ml Q12H PRN PO 10/30/17 09:15 (Senokot) 17.2 mg Q12H PRN PO 10/30/17 09:15 (Dulcolax Supp) 10 mg DAILY PRN RECTAL 10/30/17 09:15 (Lactulose Liq) 30 ml DAILY PRN PO 10/30/17 09:15 (Norvasc) 10 mg DAILY PO 10/30/17 12:00 11/01/17 08:54 (Hydrodiuril) 25 mg DAILY PO 10/30/17 12:00 11/01/17 08:54 (Effexor Xr) 37.5 mg DAILY PO 10/30/17 12:00 11/01/17 08:54 (Ambien) 5 mg HS PRN PO 10/30/17 12:00 (NS Flush) 2 ml UNSCH PRN IV FLUSH 10/30/17 12:00 (NS Flush) 2 ml BID IV FLUSH 10/30/17 21:00 10/30/17 19:59 (Zofran Inj) 4 mg Q6H PRN IVP 10/30/17 12:00 (Heparin Inj) 5,000 units Q12H SQ 10/30/17 12:00 11/01/17 00:12 (Narcan Inj) 0.4 mg UNSCH PRN IV PUSH 10/30/17 12:00 (NovoLOG SUPPLEMENTAL SCALE) 1 ACHS SLIDING SCALE SQ 10/30/17 12:00 11/01/17 08:53 (Narcan Inj) 0.4 mg UNSCH PRN IV PUSH 10/30/17 12:00 (Catapres) 0.1 mg Q6H PRN PO 10/30/17 17:15 10/31/17 14:05 (Miralax) 17 gm DAILY PO 10/31/17 09:00 11/01/17 08:54 Sodium Chloride 1,000 ml @ 65 mls/hr [id number] IV 10/31/17 12:45 11/01/17 00:12 (Catapres) 0.1 mg Q12HR PO 10/31/17 21:00 11/01/17 08:54 Assessment and Plan Assessment and Plan 57 y.o female with AUR due to constipation Monitor u/o; straight cath as necessary; check PVR with bladder scanner Follow creatinine Jose Guadalupe Hernandez DO November 01, 2017 09:51
--- NOTE | 2017-11-01 11:04 | HHI.NPPN ---
Subjective Renal Failure: Acute Interval History Renal function is better. Non oliguric. Sheikh removed. Bladder scan today showing 350 ml (Amber Mckinney) Objective Data Data 11/01/17 11/02/17 19:00 07:00 Bladder Scan Volume Amount 532 ml Vital Signs Date Time Temp Pulse Resp B/P (MAP) Pulse Ox O2 Delivery O2 Flow Rate FiO2 11/01/17 05:57 98.9 97 18 148/66 (93) 98 11/01/17 04:00 98 11/01/17 04:00 Room Air 11/01/17 00:48 98.4 98 18 133/72 (92) 99 11/01/17 00:00 97 11/01/17 00:00 Room Air 10/31/17 20:00 Room Air 10/31/17 20:00 104 10/31/17 20:00 98.1 106 16 148/73 (98) 99 10/31/17 16:00 97.8 113 16 142/76 (98) 100 10/31/17 16:00 109 10/31/17 12:00 98.2 106 16 186/86 (119) 100 10/31/17 12:00 103 (Amber Mckinney) -: 10/31/17 0742 11/01/17 0630 Physical Exam General Appearance: Well Developed, Well Nourished, No Acute Distress, Comfortable (Amber Mckinney) Eyes Eye Exam: Pupils Equal (Amber Mckinney) Neck Neck Exam: Neck Supple (Amber Mckinney) Pulmonary Resp Exam: Clear Bilaterally, Breath Sounds Equal (Amber Mckinney) Cardiology CV Exam: Regular, Normal Sinus Rhythm (Amber Mckinney) Gastrointestinal/Abdomen GI Exam: Soft, Non-Tender, Bowel Sounds Present (Amber Mckinney) Musculoskeletal MS Exam: Joints Intact, Normal Gait, Normal Tone (Amber Mckinney) Integumentary Skin Exam: Clear, Warm, Dry (Amber Mckinney) Extremeties Extremities Exam: No Edema, Pedal Pulses Palpable (Amber Mckinney) Neurologic Neuro Exam: Alert, Awake, Oriented, Speech Clear, Moving All Extremities (Amber Mckinney) Psychiatric Psych Exam: Appropriate Responses (Amber Mckinney) Assessment/Plan Discussed Condition With: Patient Assessment Summary: SANDY/Acute Renal Failure Problem List: (1) SANDY (acute kidney injury) ICD Codes: N17.9 - Acute kidney failure, unspecified Status: Acute Plan: Normal renal function at baseline SANDY due to obstructive uropathy, which is most likely obstruction due to pelvic mass urology has evaluated, also may need SUPERVISOR SHUTTLE PREPARATION evaluation She is non oliguric Sheikh removed, ordered intermittent straight cath PRN, patient may need to continue this at home but states she is unable to perform them, needs assistance Expect continued improvement in renal function Taper off IV fluids, po is adequate Avoid nephrotoxic agents (2) Bilateral hydronephrosis ICD Codes: N13.30 - Unspecified hydronephrosis Plan: see above (3) Adnexal mass ICD Codes: N94.9 - Unspecified condition associated with female genital organs and menstrual cycle Plan: Has appointment for possible biopsy this week May need evaluation this hospitalization Plan We will sign off at this time. Please call us if needed. (Amber Mckinney) Plan Patient was seen and examined on 11/01/17. Agree with above assessment and plan. (Bruce Kang MD) Amber Mckinney November 01, 2017 11:03 Bruce Kang MD November 02, 2017 15:28
--- NOTE | 2017-11-01 11:09 | HHI.DCPOC ---
Discharge Care Plan Diagnosis: (1) Obstructive uropathy (2) Fecal impaction (3) SANDY (acute kidney injury) (4) Noncompliance with medication regimen (5) Hypertension (6) Hyperlipidemia (7) Diabetes mellitus (8) Adnexal mass (9) Bilateral hydronephrosis Goals to Promote Your Health * To prevent worsening of your condition and complications * To maintain your health at the optimal level Directions to Meet Your Goals Take your medications as prescribed Follow your dietary instruction Follow activity as directed Keep your appointments as scheduled Take your immunizations and boosters as scheduled If your symptoms worsen call your PCP, if no PCP go to Urgent Care Center or Emergency Room Smoking is Dangerous to Your Health. Avoid second hand smoke Call the 24-hour hour crisis hotline for domestic abuse at Mely Pitts MD R1 November 01, 2017 11:09
[2017-11-01] MEDS ORDERED: PERI PO (11:51)
[2017-11-01] MEDS ORDERED: POLY17S PO (11:51)
[2017-11-01] MEDS ORDERED: CLON.1 PO (11:51)
== END 2017-11-01 17:54 | disposition home health service (06) | DRG 683 ==
LOC: NEPE 07:23 → OBSVTOIN 08:46 → INTOOBSV 08:46 → NEDA 08:46 → NEPFCDU 10:32 → N04A 21:03
PROVIDERS: ADMIT Family Medicine; ATTEND Family Medicine
PROC: 0T9B70Z Drainage of Bladder with Drainage Device, Via Natural or Artificial Opening (ICD-10-PCS; principal; 2017-10-30)
DX: N17.9 Acute kidney failure, unspecified (principal); N39.0 Urinary tract infection, site not specified; E87.5 Hyperkalemia; I10 Essential (primary) hypertension; R19.09 Other intra-abdominal and pelvic swelling, mass and lump; N13.9 Obstructive and reflux uropathy, unspecified; N13.30 Unspecified hydronephrosis; E11.9 Type 2 diabetes mellitus without complications; K56.41 Fecal impaction; N83.9 Noninflammatory disorder of ovary, fallopian tube and broad ligament, unspecified; E78.5 Hyperlipidemia, unspecified; F32.9 Major depressive disorder, single episode, unspecified; F41.9 Anxiety disorder, unspecified; R00.0 Tachycardia, unspecified; E66.3 Overweight; Z79.4 Long term (current) use of insulin; Z79.899 Other long term (current) drug therapy; Z87.440 Personal history of urinary (tract) infections; Z72.0 Tobacco use; Z91.14 Patient's other noncompliance with medication regimen; Z68.29 Body mass index [BMI] 29.0-29.9, adult
CPT/HCPCS: 51702; 80048; 80053; 82570; 82948; 83735; 84100; 84300; 84540; 85025; 86304; J0131; J1335; J1644; J1815; J7030

== ENCOUNTER → 2017-11-08 | Outpatient (CLI) | payer MEDICARE, OTHER ==
[~2017-11-08] MED LIST changes: +CLON.1 PO; -EPIN1INJ21 IV PUSH; -HYDR25TA5 PO; -INVA1INJ IV; -LANTUS2P SQ; -LISI-519 PO; -Lactulose Liq PO; -METF1000 PO; +PERI PO; +POLY17S PO; -SOLU250I IV PUSH
[2017-11-08 15:17] LABS: AUTOMATED NEUTROPHIL # 5.4 TH/MM3 (1.8-7.7); BASOPHIL # 0.1 TH/MM3 (0-0.2); EOSINOPHIL # 0.6 TH/MM3 (0-0.4); EOSINOPHIL % 6.5 % (0.0-4.0); HEMATOCRIT 29.4 % (35.0-46.0); HEMOGLOBIN 9.3 GM/DL (11.6-15.3); LYMPH % 27.7 % (9.0-44.0); LYMPHOCYTE # 2.5 TH/MM3 (1.0-4.8); MEAN CELL VOLUME 69.9 FL (80.0-100.0); MEAN CORPUSCULAR HGB CONC 31.5 % (32.0-36.0); MEAN PLATELET VOLUME 7.9 FL (7.0-11.0); MONO % 4.6 % (0.0-8.0); MONOCYTE # 0.4 TH/MM3 (0-0.9); NEUT % 60.2 % (16.0-70.0); PLATELET COUNT 415 TH/MM3 (150-450); RED BLOOD COUNT 4.21 MIL/MM3 (4.00-5.30); RED CELL DISTRIBUTION WIDTH 17.7 % (11.6-17.2)
[2017-11-08 15:46] LABS: ALBUMIN 2.8 GM/DL (3.4-5.0); ALT (GPT) 15 U/L (10-53); AST (GOT) 15 U/L (15-37); BICARBONATE 21.8 MEQ/L (21.0-32.0); BLOOD UREA NITROGEN 45 MG/DL (7-18); CALCIUM 8.6 MG/DL (8.5-10.1); CHLORIDE 106 MEQ/L (98-107); CREATININE 6.58 MG/DL (0.50-1.00); GLOMERULAR FILTRATION RATE 8 ML/MIN (>89); GLUCOSE,FASTING 222 MG/DL (74-99); PROTHROMBIN TIME - PATIENT 9.8 SEC (9.8-11.6); SODIUM (NA) 136 MEQ/L (136-145)
[2017-11-08 15:49] LABS: ALKALINE PHOSPHATASE 172 U/L (45-117); TOTAL BILIRUBIN ADULT 0.2 MG/DL (0.2-1.0); TOTAL PROTEIN 7.3 GM/DL (6.4-8.2)
--- NOTE | 2017-11-10 08:44 | EKG ---
Date Performed: 11/08/2017 Time Performed: 15:02:21 PTAGE: 57 years EKG: SINUS TACHYCARDIA LEFT ATRIAL ENLARGEMENT POSSIBLE ANTERIOR MYOCARDIAL INFARCTION, OF INDET ERMINATE AGE ABNORMAL ECG NO PREVIOUS TRACING DOCTOR: Cheng Johnson Interpretating Date/Time 11/10/2017 08:40:40
== END ==
LOC: CPRE 14:40
PROVIDERS: ATTEND Obstetrics & Gynecology Gynecologic Oncology
DX: Z01.810 Encounter for preprocedural cardiovascular examination (principal); Z01.811 Encounter for preprocedural respiratory examination; Z01.812 Encounter for preprocedural laboratory examination; Z01.818 Encounter for other preprocedural examination; R19.09 Other intra-abdominal and pelvic swelling, mass and lump; R94.31 Abnormal electrocardiogram [ECG] [EKG]
CPT/HCPCS: 36415; 80053; 85025; 85610; 85730; 93005

== ENCOUNTER 2017-12-17 20:00 | Inpatient (IN) | payer MEDICARE, OTHER ==
[~2017-12-17] VITALS: Ht 167.6 cm; Wt 88.9 kg
[~2017-12-17 20:00] MED LIST changes: -AMBI5TAB PO; -AMLO10 PO; -BETH25 PO; -EPIN1INJ21 SQ; -GLIP5TAB8 PO; -POLY17S PO; -TRAM50 PO; -VENL1CAP38 PO
[2017-12-17 20:24] VITALS: BP 106/64; PULSE 114; RESP 19; TEMP 98.4; O2SAT 98
[2017-12-17] MEDS ORDERED: SODIUM CHLOR 0.9% 1000 ML INJ 1,000 ML IV ONE ×2 (20:30→21:30)
[2017-12-17] MEDS ORDERED: MORPHINE SULFATE 4 MG/ML INJ IV PUSH ONE (20:30)
[2017-12-17] MEDS ORDERED: METOCLOPRAMIDE HCL 10 MG/2 ML VIAL IV PUSH ONE (20:30)
--- NOTE | 2017-12-17 20:49 | PD ---
HPI Chief Complaint: Pain: Acute or Chronic Time Seen by Provider: 20:25 Travel History International Travel<30 days: No Contact w/Intl Traveler<30days: No Traveled to known affect area: No History of Present Illness HPI The patient is a 57 year old female who presents to the [facility] emergency department with a history of reportedly feeling unwell since Sunday. She reports that she has had nausea and vomiting since Sunday. She has vomited in total 3 times today. She denies having bilious vomit. She denies having any hematemesis. She reports that she has been moving her bowels daily, however she does have a problem with constipation and is using a stool softener. She denies having any blood in her stool or black or tarry stools. She reports that she is planning to have a D&C soon done by Dr. Samano. She is unsure why. The patient reports that since August she has also been self cathing , however she is unsure why she is unable to completely evacuate her bladder. She reports that she was told that she would need a Sheikh catheter, however she refused and instead is self cathing. The patient reports having generalized abdominal pain that she has difficulty describing the character of or any other details regarding the abdominal pain. Unfortunately, the patient is a poor historian. The patient reports that her primary care physician is Dr. Hernandez. She has not seen Dr. Hernandez since August. She reports that she does have home health that comes out. She reports that in August her primary care physician discontinued her diabetic medication for unknown reason. Ambulance services brought the patient in the reports that her blood sugar was critically high prior to arrival. The patient was started on normal saline IV fluids and transported to this facility. She denies having any known recent fevers, cough or congestion, neck pain, chest pain, shortness of breath, or neurologic symptoms. The patient incidentally also reports that she was diagnosed with a urinary tract infection on November 28, however Dr. Hernandez has not started her on antibiotic yet. [facility] Past Medical History Narrative Medical The patient's past medical history is significant for renal failure during laboratory studies done on an outpatient lab done at this facility on November 08 with a creatinine of 6. The patient reports being unaware of this. The patient is self catheterizing. The patient last self catheterized this morning and it is currently 8:30 PM when I am evaluating the patient. The patient has a history of anxiety disorder, diabetes mellitus, Acid reflux, hyperlipidemia, hypertension, multiple pelvic masses currently in the process of being worked up by Dr. Selwyn Darling Anticoagulant Therapy: No Anxiety: Yes Depression: Yes Cancer: Yes Cardiovascular Problems: Yes High Cholesterol: Yes Chemotherapy: No Cerebrovascular Accident: No Diabetes: Yes Patient Takes Glucophage: No Diminished Hearing: No Endocrine: Yes Gastrointestinal Disorders: Yes (GERD) GERD: Yes Genitourinary: No Hypertension: Yes Immune Disorder: No Musculoskeletal: Yes Neurologic: No Psychiatric: Yes Reproductive: No Respiratory: Yes Immunizations Current: No Ulcer: Yes ?: Not : 1 Para: 1 Past Surgical History Narrative Surgical The patient's past surgical history is significant for right ankle ORIF, left knee surgery Body Medical Devices: METAL IN R ANKLE Hysterectomy: No Other Surgery: Yes Social History Alcohol Use: No Tobacco Use: Yes (Occasional smoker) Substance Use: No Allergies-Medications (Allergen,Severity, Reaction): Coded Allergies: No Known Allergies (Verified Allergy, Unknown, 10/30/17) Reported Meds & Prescriptions Reported Meds & Active Scripts Active Review of Systems General / Constitutional: No: Fever Eyes: No: Visual changes HENT: No: Headaches, Congestion Cardiovascular: No: Chest Pain or Discomfort, Dyspnea on exertion Respiratory: No: Cough, Shortness of Breath Gastrointestinal: Positive: Nausea, Vomiting, Abdominal Pain, Constipation, No : Diarrhea, Hematemesis, Hematochezia, Changes in Bowel Habits, Indigestion, Loss of Appetite Genitourinary: Positive: Dysuria, Decreased Urinary Output, Hesitancy, No: Flank Pain Musculoskeletal: No: Pain Skin: No Rash Neurologic: Positive: Weakness (The patient reports having generalized weakness ), No: Focal Abnormalities, Change in Mentation, Slurred Speech, Sensory Disturbance Psychiatric: No: Depression Endocrine: No: Polydipsia Hematologic/Lymphatic: No: Easy Bruising Physical Exam Narrative General: The patient is a well-developed well-nourished female in no acute distress, however intermittently moaning out that she reports is related to her abdominal pain. Head and Neck exam: Head is normocephalic atraumatic. Eyes: EOMI, pupils are equal round and reactive to light. Nose: Midline septum with pink mucous membranes Mouth: Dentition unremarkable. Moist mucus membranes. Posterior oropharynx is not erythematous. No tonsillar hypertrophy. Uvula midline. Airway patent. Neck: No palpable lymphadenopathy. No nuchal rigidity. No thyromegaly. Cardiovascular: Sinus tachycardia in the 1 teens without murmurs, gallops, or rubs. No pulse deficit to the extremities on simultaneous auscultation and palpation of her radial artery. Lungs: Clear to auscultation bilaterally. No wheezes, rhonchi, or rales. Abdomen: Soft, with reported tenderness on palpation in the midepigastric area and suprapubic area, no other tenderness on palpation of the other quadrants of the abdomen. No tenderness on palpation of McBurney's point. Negative Ramirez sign. No guarding, rebound, or rigidity. Extremities: No clubbing, cyanosis, or edema. 2+ pulses in all 4 extremities. No calf tenderness on palpation. Back: No costovertebral angle tenderness to palpation. Neurologic Exam: Cranial nerves 2-12 were intact on exam. Strength is 5/5 in all 4 extremities. No sensory deficits noted. Skin Exam: No rash noted. Intact skin that is warm and dry. Data Data Last Documented VS Vital Signs Date Time Temp Pulse Resp B/P (MAP) Pulse Ox O2 Delivery O2 Flow Rate FiO2 12/17/17 23:00 114 18 112/64 (80) 100 Room Air 12/17/17 20:24 98.4 Orders Orders Electrocardiogram (12/17/17 20:25) Complete Blood Count With Diff (12/17/17 20:25) Comprehensive Metabolic Panel (12/17/17 20:25) Creatine Kinase (Cpk) (12/17/17 20:25) Ckmb (Isoenzyme) Profile (12/17/17 20:25) Troponin I (12/17/17 20:25) Prothrombin Time / Inr (Pt) (12/17/17 20:25) Act Partial Throm Time (Ptt) (12/17/17 20:25) Blood Culture (12/17/17 20:25) C-Reactive Protein (Crp) (12/17/17 20:25) Lipase (12/17/17 20:25) Urinalysis - C+S If Indicated (12/17/17 20:25) Cath For Specimen (12/17/17 20:25) Magnesium (Mg) (12/17/17 20:25) Blood Gas Venous Ph (12/17/17 20:25) Beta Hydroxybutyrate (Acetone) (12/17/17 20:25) Chest, Single Ap (12/17/17 20:25) Iv Access Insert/Monitor (12/17/17 20:25) Ecg Monitoring (12/17/17 20:25) Oximetry (12/17/17 20:25) Lactic Acid Sepsis Protocol (12/17/17 20:25) Sodium Chlor 0.9% 1000 Ml Inj (Ns 1000 M (12/17/17 20:30) Morphine Inj (Morphine Inj) (12/17/17 20:30) Metoclopramide Inj (Reglan Inj) (12/17/17 20:30) Urinary Catheter Insert/Apply (12/17/17 20:25) Sodium Chlor 0.9% 1000 Ml Inj (Ns 1000 M (12/17/17 21:30) Rfid Manager / Telemetry GERRY.Q8H (12/17/17 21:23) ^ Insert Iv (12/17/17 21:23) Diet Npo (12/18/17 Breakfast) Sodium Chlor 0.9% 1000 Ml Inj (Ns 1000 M (12/17/17 21:23) Dext 5%-Nacl 0.9% 1000 Ml Inj (D5w-Ns 10 (12/17/17 21:23) Insulin Human Regular Inj (Novolin R Inj (12/17/17 21:30) Insulin Regular (Iv Infusion) (Novolin R (12/17/17 21:30) Potassium Chlor 40 Meq Premix (Kcl 40 Me (12/17/17 21:30) Potassium Chlor 40 Meq Premix (Kcl 40 Me (12/17/17 21:30) Potassium Chlor 20 Meq Premix (Kcl 20 Me (12/17/17 21:30) Potassium Chlor 20 Meq Premix (Kcl 20 Me (12/17/17 21:30) Potassium Chlor 20 Meq Premix (Kcl 20 Me (12/17/17 21:30) Potassium Chlor 20 Meq Premix (Kcl 20 Me (12/17/17 21:30) Potassium Chlor 20 Meq Premix (Kcl 20 Me (12/17/17 21:30) Potassium Chlor 20 Meq Premix (Kcl 20 Me (12/17/17 21:30) Sodium Bicarbonate 8.4% Inj (Sodium Bica (12/17/17 21:30) Sodium Bicarbonate 8.4% Inj (Sodium Bica (12/17/17 21:30) Sodium Phosphate Inj (Sodium Phosphate I (12/17/17 21:30) Hemoglobin (Hgb) A1c (12/17/17 21:23) Basic Metabolic Panel (Bmp) (12/18/17 08:23) Basic Metabolic Panel (Bmp) (12/18/17 14:23) Basic Metabolic Panel (Bmp) (12/18/17 20:23) Magnesium (Mg) (12/18/17 08:23) Magnesium (Mg) (12/18/17 14:23) Magnesium (Mg) (12/18/17 20:23) Phosphorus (Po4) (12/18/17 08:23) Phosphorus (Po4) (12/18/17 14:23) Phosphorus (Po4) (12/18/17 20:23) Beta Hydroxybutyrate (Acetone) (12/18/17 08:23) Beta Hydroxybutyrate (Acetone) (12/18/17 20:23) Ct Abd/Pel W/O Iv Contrast (12/17/17 22:07) Admit Order (Ed Use Only) (12/17/17 23:05) Piperacil-Tazo 3.375 Gm Premix (Zosyn 3. (12/17/17 23:15) Vancomycin Inj (Vancomycin Inj) (12/17/17 23:15) Labs Laboratory Tests Test 12/17/17 21:10 12/17/17 21:13 12/17/17 21:14 Venous Blood pH 7.11 Lactic Acid Level 1.6 mmol/L White Blood Count 18.6 TH/MM3 Red Blood Count 3.63 MIL/MM3 Hemoglobin 7.7 GM/DL Hematocrit 25.9 % Mean Corpuscular Volume 71.3 FL Mean Corpuscular Hemoglobin 21.3 PG Mean Corpuscular Hemoglobin Concent 29.9 % Red Cell Distribution Width 18.0 % Platelet Count 297 TH/MM3 Mean Platelet Volume 8.9 FL Neutrophils (%) (Auto) 90.1 % Lymphocytes (%) (Auto) 3.4 % Monocytes (%) (Auto) 5.7 % Eosinophils (%) (Auto) 0.7 % Basophils (%) (Auto) 0.1 % Neutrophils # (Auto) 16.8 TH/MM3 Lymphocytes # (Auto) 0.6 TH/MM3 Monocytes # (Auto) 1.1 TH/MM3 Eosinophils # (Auto) 0.1 TH/MM3 Basophils # (Auto) 0.0 TH/MM3 CBC Comment AUTO DIFF Differential Total Cells Counted 100 Neutrophils % (Manual) 79 % Band Neutrophils % 19 % Monocytes % 2 % Neutrophils # (Manual) 18.2 TH/MM3 Differential Comment FINAL DIFF MANUAL Toxic Granulation 1+ Toxic Vacuolation PRESENT Platelet Estimate NORMAL Platelet Morphology Comment NORMAL Prothrombin Time 10.0 SEC Prothromb Time International Ratio 1.0 RATIO Activated Partial Thromboplast Time 25.9 SEC Blood Urea Nitrogen 73 MG/DL Creatinine 5.57 MG/DL Random Glucose 734 MG/DL Total Protein 6.9 GM/DL Albumin 2.0 GM/DL Calcium Level 9.3 MG/DL Magnesium Level 2.6 MG/DL Alkaline Phosphatase 295 U/L Aspartate Amino Transf (AST/SGOT) 15 U/L Alanine Aminotransferase (ALT/SGPT) 20 U/L Total Bilirubin 1.1 MG/DL Sodium Level 118 MEQ/L Potassium Level 4.6 MEQ/L Chloride Level 88 MEQ/L Carbon Dioxide Level 11.2 MEQ/L Anion Gap 19 MEQ/L Estimat Glomerular Filtration Rate 10 ML/MIN Total Creatine Kinase 36 U/L Troponin I LESS THAN 0.02 NG/ML C-Reactive Protein 36.00 MG/DL Lipase 83 U/L B-Hydroxybutyrate 3.63 MMOL/L MDM Medical Decision Making Medical Screen Exam Complete: Yes Emergency Medical Condition: Yes Medical Record Reviewed: Yes Differential Diagnosis DKA, versus weakness and vomiting from uremia and renal failure, versus pyelonephritis, versus sepsis Narrative Course During the course of the patient's emergency department visit, the patient's history, examination, and differential diagnosis were reviewed with the patient. The patient was placed on a school lunch monitor with oximetry and frequent blood pressure monitoring. The patient had IV access obtained and blood work sent for analysis. The patient's electronic medical record was reviewed and the patient's last creatinine as an outpatient was 6 on November 08. The patient had normal kidney function last noted on October 02, 2017 with a BUN of 17, creatinine 0.89. The patient initially was refusing to have a Sheikh catheter placed to gravity, however after explaining the patient's last laboratory studies revealed that she was in renal failure and careful monitoring her urine output was necessary as it appears she had hydronephrosis with urinary retention , the patient then agreed. The patient had a EKG done on arrival that shows a sinus tachycardia with an occasional supraventricular premature complexes heart rate of 115, QRS duration 92 ms, QTC [address] segment elevation. The patient was initially provided normal saline 1 L IV fluid bolus. The patient's laboratory studies were reviewed and remarkable for a CBC that shows a white count of 18.6, hemoglobin 7.7 and a patient with a history of anemia, platelets 297 with a left shift with 19 bands suspicious for sepsis. The patient was started on broad-spectrum antibiotic to include Zosyn and vancomycin. CMP is remarkable for a sodium of 118, chloride 88, CO2 11.2, anion gap 19 with a blood sugar of 734 consistent with DKA, BUN 73, creatinine 5.57, lactic acid is 1.6, alk phos 295, magnesium 2.6, total bilirubin 1.1, cardiac enzymes within normal limits, C-reactive protein elevated at 36, albumin 2.0, lipase 83, PT PTT within normal limits, beta hydroxybutyrate is elevated at 3.63, urinalysis shows trace ketones moderate occult blood 7 RBCs 111 WBCs many bacteria, culture indicated. A VBG reveals a pH of 7.11 consistent with DKA. The patient was started on an insulin bolus at 0.1 U/kg. The patient was started on an insulin drip. The patient was continued on a second liter of normal saline IV fluids. Radiology studies were reviewed and remarkable for Last Impressions Abdomen/Pelvis CT 12/17/172206 Signed Impressions: CONCLUSION: 1. Markedly distended bladder with mild to moderate bilateral hydronephrosis. 2. Rectal impaction measuring up to 8.5 cm in diameter. 3. Lobulated mass in left adnexal region extending into left lower quadrant si milar in appearance to August and October 2017. Cannot exclude a slow growing ovaria n neoplasm. Chest X-Ray 12/17/172024 Signed Impressions: CONCLUSION: Negative examination. The patient's results were discussed with the patient, including the plan of care. I explained that further testing and/ or monitoring is indicated based on the patient's history, examination, and/ or laboratory findings. Therefore, I recommended admission for additional evaluation. The patient expressed understanding and was agreeable with this plan. The patient was admitted to the hospital in critical condition and sent to a bed under the care of the senior tax specialist's service. Critical Care Narrative Aggregate critical care time was 38 minutes. Time to perform other separately billable procedures was not included in the critical care time. My time did not include minutes spent treating any other patients simultaneously or on activities that did not directly contribute to the patient's treatment. The services I provided to this patient were to treat and/or prevent clinically significant deterioration that could result in: Cardiovascular collapse from sepsis, versus electrolyte derangements with cardiac arrhythmia related to DKA, versus fluid overload from crystalloid resuscitation I provided critical care services requiring my management, as noted below: Chart data review, documentation time, medication orders and management, vital sign assessments/reviewing monitor data, ordering and reviewing lab tests, ordering and interpreting/reviewing x-rays and diagnostic studies, care of the patient and discussion of the patient with the admitting physicians. Sepsis Criteria SIRS Criteria (2 or more): Heart rate over 90, WBC > 50478, < 4000 or > 10% bands Sepsis Criteria (SIRS+source): Infect source susp/known Severe Sepsis (+one): Acute Oliguria/Renal Failure Criteria Outcome: Meets SIRS criteria, Meets sepsis criteria, Meets severe sepsis criteria Physician Communication Physician Communication The patient's case including history, pertinent physical examination findings, and laboratory studies were discussed with Dr. Pearson. It was agreed that the patient would be admitted to the senior tax specialist's service. Diagnosis Primary Impression: DKA (diabetic ketoacidoses) Qualified Codes: E11.10 - Type 2 diabetes mellitus with ketoacidosis without coma Additional Impressions: Sepsis Qualified Codes: A41.9 - Sepsis, unspecified organism UTI (urinary tract infection) Qualified Codes: T83.511A - Infection and inflammatory reaction due to indwelling urethral catheter, initial encounter; N39.0 - Urinary tract infection , site not specified Admitting Information Admitting Physician Requests: Admit Eliane Shah MD Dec 17, 2017 20:49
[2017-12-17] MEDS: DEXT 5%-NACL 0.9% 1000 ML INJ 1,000 ML IV SCH (21:23)
[2017-12-17] MEDS ORDERED: SODIUM PHOSPHATE INJ 15 MMOL in SODIUM CHLORIDE 0.9% INJ 100 ML IV PRN (21:30)
[2017-12-17] MEDS ORDERED: INSULIN HUMAN REGULAR 1,000 UNITS/10 ML VIAL IV PUSH ONE (21:30)
[2017-12-17] MEDS ORDERED: POTASSIUM CHLOR 40 MEQ PREMIX 100 ML IV PRN ×2 (21:30)
[2017-12-17] MEDS ORDERED: POTASSIUM CHLOR 20 MEQ PREMIX 100 ML IV PRN ×4 (21:30)
[2017-12-17] MEDS ORDERED: SODIUM BICARBONATE 8.4% SOLN 50 MEQ/50 ML VIAL IV PUSH PRN ×2 (21:30)
[2017-12-17] MEDS: SODIUM CHLOR 0.9% 1000 ML INJ 1,000 ML IV SCH (21:35)
[2017-12-17 21:44] LABS: AUTOMATED NEUTROPHIL # 16.8 TH/MM3 (1.8-7.7); BASOPHIL % 0.1 % (0.0-2.0); EOSINOPHIL # 0.1 TH/MM3 (0-0.4); EOSINOPHIL % 0.7 % (0.0-4.0); HEMATOCRIT 25.9 % (35.0-46.0); HEMOGLOBIN 7.7 GM/DL (11.6-15.3); LYMPH % 3.4 % (9.0-44.0); LYMPHOCYTE # 0.6 TH/MM3 (1.0-4.8); MEAN CELL VOLUME 71.3 FL (80.0-100.0); MEAN CORPUSCULAR HEMOGLOBIN 21.3 PG (27.0-34.0); MEAN PLATELET VOLUME 8.9 FL (7.0-11.0); MONO % 5.7 % (0.0-8.0); MONOCYTE # 1.1 TH/MM3 (0-0.9); NEUT % 90.1 % (16.0-70.0); PLATELET COUNT 297 TH/MM3 (150-450); RED BLOOD COUNT 3.63 MIL/MM3 (4.00-5.30); WHITE BLOOD COUNT 18.6 TH/MM3 (4.0-11.0)
[2017-12-17 21:46] LABS: MEAN CORPUSCULAR HGB CONC 29.9 % (32.0-36.0)
[2017-12-17 21:58] LABS: ALKALINE PHOSPHATASE 295 U/L (45-117); ALT (GPT) 20 U/L (10-53); AST (GOT) 15 U/L (15-37); BICARBONATE 11.2 MEQ/L (21.0-32.0); BLOOD UREA NITROGEN 73 MG/DL (7-18); CALCIUM 9.3 MG/DL (8.5-10.1); CHLORIDE 88 MEQ/L (98-107); CREATININE 5.57 MG/DL (0.50-1.00); GLOMERULAR FILTRATION RATE 10 ML/MIN (>89); MAGNESIUM 2.6 MG/DL (1.5-2.5); TOTAL BILIRUBIN ADULT 1.1 MG/DL (0.2-1.0); TOTAL PROTEIN 6.9 GM/DL (6.4-8.2); TROPONIN I LESS THAN 0.02 NG/ML (0.02-0.05)
[2017-12-17 22:05] LABS: GLUCOSE,RANDOM 734 MG/DL (74-106); SODIUM (NA) 118 MEQ/L (136-145)
[2017-12-17 22:28] LABS: BANDS 19 % (0-6); MONOCYTES 2 % (0-8); NEUTROPHIL # MANUAL DIFF 18.2 TH/MM3 (1.8-7.7); POLYS (SEG NEUTROPHILS) 79 % (16-70); TOXIC GRANULATION 1+ (NORMAL); TOXIC VACUOLATION PRESENT (NONE SEEN)
--- NOTE | 2017-12-17 22:53 | RADRPT ---
EXAM DATE: 12/17/2017 10:49 PM EDT AGE/SEX: 57 years / Female INDICATIONS: Chest and back pain. CLINICAL DATA: This is the patient's initial encounter. Patient reports that signs and symptoms have been present for 1 day and indicates a pain score of 8/10. MEDICAL/SURGICAL HISTORY: . Hypertension. Ulcer. Diabetes None. COMPARISON: [facility] – [place], CHEST SINGLE AP, 09/25/2017. . FINDINGS: A single AP view of the chest demonstrates the lungs to be symmetrically aerated without evidence of mass, infiltrate or effusion. The cardiomediastinal contours are unremarkable. Osseous structures a re intact. CONCLUSION: Negative examination. Electronically signed by: Manolo Liriano MD 12/17/2017 10:51 PM EDT
--- NOTE | 2017-12-17 22:57 | RADRPT ---
EXAM DATE: 12/17/2017 10:41 PM EDT AGE/SEX: 57 years / Female INDICATIONS: Abdomen pain CLINICAL DATA: This is the patient's initial encounter. Patient reports that signs and symptoms have been present for 1 day and indicates a pain score of 10/10. MEDICAL/SURGICAL HISTORY: Cardiovascular disease. Hypertension. Diabetes mellitus type II. G ERD Renal Failure . RADIATION DOSE: 11.56 CTDI (mGy) [place] [facility] [place]AST[place]/25/2017. . TECHNIQUE: Multiple contiguous axial images were obtained through the abdomen. Images were obtained using multiple row detector helical technique. Using automated exposure control and adjustment of the mA and/or kV according to patient size, radiation dose was kept as low as reasonably achievable to o btain optimal diagnostic quality images. DICOM format image data is available electronically for rev iew and comparison. FINDINGS: Lung bases are clear. Within the pelvis the bladder is fairly markedly distended measuring up to 19 cm in length. The rectu m is impacted with stool and measures up to 8.5 cm in AP diameter. There is mild to moderate bilatera l hydronephrosis which is similar to October 30, 2017. There is a lobulated mass extending from the left hemipelvis into the lower left abdomen measuring up to about 12 cm in length and 4.8 cm in diameter, similar in appearance to October 30. No acute findings in the liver, spleen, adrenals or pancreas. No calcified gallstones. No bowel obstr uction, free air or free fluid. CONCLUSION: 1. Markedly distended bladder with mild to moderate bilateral hydronephrosis. 2. Rectal impaction measuring up to 8.5 cm in diameter. 3. Lobulated mass in left adnexal region extending into left lower quadrant similar in appearance to August and October 2017. Cannot exclude a slow growing ovarian neoplasm. Electronically signed by: Temo Doyle MD 12/17/2017 10:55 PM EDT
[2017-12-17 23:00] VITALS: BP 112/64; PULSE 114; RESP 18; O2SAT 100
[2017-12-17] MEDS: INSULIN REGULAR (IV INFUSION) 100 UNITS in SODIUM CHLORIDE 0.9% INJ 99 ML IV PRN (23:08)
[2017-12-17] MEDS ORDERED: MAGNESIUM HYDROXIDE SUSP 30 ML CUP PO PRN (23:15)
[2017-12-17] MEDS ORDERED: SODIUM CHLORIDE 0.9% FLUSH 10 ML FLUSH IV FLUSH PRN (23:15)
[2017-12-17] MEDS ORDERED: NURSING INFORMATION XX SCH (23:15)
[2017-12-17] MEDS ORDERED: LACTULOSE SYRUP 20 GM/30 ML CUP PO PRN (23:15)
[2017-12-17] MEDS ORDERED: SENNOSIDES 8.6 MG TAB PO PRN (23:15)
[2017-12-17] MEDS ORDERED: PIPERACIL-TAZO 3.375 GM PREMIX 50 ML IV ONE (23:15)
[2017-12-17] MEDS ORDERED: CHLORHEXIDINE GLUCONATE 2 % 1 PACK (2 CLOTHS) TOP PRN (23:15)
[2017-12-17] MEDS ORDERED: VANCOMYCIN INJ 1,000 MG in SODIUM CHLOR 0.9% 250 ML INJ 250 ML IV ONE (23:15)
[2017-12-17] MEDS ORDERED: RESP: ALBUTEROL 2.5 MG/IPRATROPIUM 0.5 MG NEB (PRN) INH (23:15)
[2017-12-17] MEDS ORDERED: ACETAMINOPHEN 325 MG TAB PO PRN (23:15)
[2017-12-17] MEDS ORDERED: BISACODYL 10 MG SUPP RECTAL PRN (23:15)
[2017-12-17 23:31] VITALS: O2SAT 98
[2017-12-18] VITALS (12 sets, daily range): BP systolic 78–116; BP diastolic 49–72; PULSE 100–122; RESP 17–36; TEMP 97.9–98.8; O2SAT 93–100
[2017-12-18 00:06] LABS: AMORPHOUS SEDIMENT, URINE RARE; BACTERIA, URINE MANY /hpf; BILIRUBIN, URINE NEG (NEG); BLOOD, URINE MOD (NEG); GLUCOSE,URINE >=500 mg/dL (NEG); KETONE, URINE TRACE mg/dL (NEG); MUCUS URINE FEW /lpf (OCC); NITRITE,URINE NEG (NEG); SQUAMOUS EPITHELIAL CELL URINE 1 /hpf (0-5); URINE COLOR YELLOW (YELLW/STRAW); URINE LEUKOCYTE ESTERASE LARGE (NEG)
[2017-12-18] MEDS: DEXT 5%-NACL 0.9% 1000 ML INJ 1,000 ML IV SCH ×3 (02:23→08:24)
--- NOTE | 2017-12-18 02:56 | HHI.HP ---
[facility] Service Critical Care Medicine Primary Care Physician Unknown Admission Diagnosis DKA, hyponatremia Diagnosis: Chief Complaint: Generalized weakness, pain Travel History International Travel<30 Days: No Contact w/Intl Traveler <30 Da: No Traveled to Known Affected Are: No History of Present Illness History of Present Illness HPI The patient is a 57 year old female who presents to the [facility] emergency department with a history of reportedly feeling unwell since Sunday. She reports that she has had nausea and vomiting since Sunday. She has vomited in total 3 times on 12/17. She denies having bilious vomit. She denies having any hematemesis. She reports that she has been moving her bowels daily, however she does have a problem with constipation and is using a stool softener. She denies having any blood in her stool or black or tarry stools. She reports that she is planning to have a D&C soon done by Dr. Samano. She is unsure why. The patient reports that since August she has also been self cathing, however she is unsure why she is unable to completely evacuate her bladder. She reports that she was told that she would need a Sheikh catheter, however she refused and instead is self cathing. The patient reports having generalized abdominal pain that she has difficulty describing the character of or any other details regarding the abdominal pain. Unfortunately, the patient is a poor historian. The patient reports that her primary care physician is Dr. Hernandez. She has not seen Dr. Hernandez since August. She reports that she does have home health that comes out. She reports that in August her primary care physician discontinued her diabetic medication for unknown reason. Ambulance services brought the patient in the reports that her blood sugar was critically high prior to arrival. The patient was started on normal saline IV fluids and transported to this facility. She denies having any known recent fevers, cough or congestion, neck pain, chest pain, shortness of breath, or neurologic symptoms. The patient incidentally also reports that she was diagnosed with a urinary tract infection on November 28, however Dr. Hernandez has not started her on antibiotic yet. Patient stated that she was brought to the ER by [facility] due to progressive generalized weakness. She was noted to have a fingerstick glucose in the 1000 range and blood glucose in the ER was in the 700s with a metabolic acidosis. Patient was started on DKA protocol by ER physician. She was noted to have a leukocytosis and cloudy urine with suspicion of a UTI hence after obtaining cultures she was initiated on IV Zosyn and received a dose of vancomycin in the ER. When I evaluated the patient she was resting in bed comfortably and denies any chest pain shortness of breath nausea, palpitations. History PFSH Past Medical History Narrative Medical The patient's past medical history is significant for renal failure during laboratory studies done on an outpatient lab done at this facility on November 08 with a creatinine of 6. The patient reports being unaware of this. The patient is self catheterizing. The patient last self catheterized this morning . The patient has a history of anxiety disorder, diabetes mellitus, Acid reflux , hyperlipidemia, hypertension, multiple pelvic masses being followed by Dr. Selwyn Darling Anticoagulant Therapy: No Anxiety: Yes Depression: Yes Cancer: Yes Cardiovascular Problems: Yes High Cholesterol: Yes Chemotherapy: No Cerebrovascular Accident: No Diabetes: Yes Patient Takes Glucophage: No Diminished Hearing: No Endocrine: Yes Gastrointestinal Disorders: Yes (GERD) GERD: Yes Genitourinary: No Hypertension: Yes Immune Disorder: No Musculoskeletal: Yes Neurologic: No Psychiatric: Yes Reproductive: No Respiratory: Yes Immunizations Current: No Ulcer: Yes ?: Not : 1 Para: 1 Past Surgical History Narrative Surgical The patient's past surgical history is significant for right ankle ORIF, left knee surgery Body Medical Devices: METAL IN R ANKLE Hysterectomy: No Other Surgery: Yes Social History Alcohol Use: No Tobacco Use: Yes (Occasional smoker) Substance Use: No Allergies-Medications Allergies-Medications (Allergen,Severity, Reaction): Coded Allergies: No Known Allergies (Verified Allergy, Unknown, 10/30/17) Reported Meds & Prescriptions Reported Meds & Active Scripts Active ROS Review of Systems General / Constitutional: No: Fever Eyes: No: Visual changes HENT: No: Headaches, Congestion Cardiovascular: No: Chest Pain or Discomfort, Dyspnea on exertion Respiratory: No: Cough, Shortness of Breath Gastrointestinal: Positive: Nausea, Vomiting, Abdominal Pain, Constipation, No : Diarrhea, Hematemesis, Hematochezia, Changes in Bowel Habits, Indigestion, Loss of Appetite Genitourinary: Positive: Dysuria, Decreased Urinary Output, Hesitancy, No: Flank Pain Musculoskeletal: No: Pain Skin: No Rash Neurologic: Positive: Weakness (The patient reports having generalized weakness ), No: Focal Abnormalities, Change in Mentation, Slurred Speech, Sensory Disturbance Psychiatric: No: Depression Endocrine: No: Polydipsia Hematologic/Lymphatic: No: Easy Bruising Physical Exam Vital Signs Vital Signs Date Time Temp Pulse Resp B/P (MAP) Pulse Ox O2 Delivery O2 Flow Rate FiO2 12/18/17 00:00 112 18 111/61 (78) 98 Room Air 12/17/17 23:31 98 12/17/17 23:00 114 18 112/64 (80) 100 Room Air 12/17/17 20:24 98.4 114 19 106/64 (78) 98 Physical Exam HEENT/Neuro: Pallor present. no icterus, tongue moist, LEATHA, Awake alert oriented 3, nonfocal grossly, moving all 4 extremities Neck: No JVD Chest/pulmonary: CTA bilaterally Cardiovascular: S1-S2 regular no gallop or murmur GI/abdomen: Soft, vague tenderness in mid abdomen, bowel sounds present, no guarding Extremities: Warm bilaterally, no edema Laboratory Laboratory Tests Test 12/17/17 21:10 12/17/17 21:13 12/17/17 21:14 12/17/17 23:40 Venous Blood pH 7.11 Lactic Acid Level 1.6 White Blood Count 18.6 Red Blood Count 3.63 Hemoglobin 7.7 Hematocrit 25.9 Mean Corpuscular Volume 71.3 Mean Corpuscular Hemoglobin 21.3 Mean Corpuscular Hemoglobin Concent 29.9 Red Cell Distribution Width 18.0 Platelet Count 297 Mean Platelet Volume 8.9 Neutrophils (%) (Auto) 90.1 Lymphocytes (%) (Auto) 3.4 Monocytes (%) (Auto) 5.7 Eosinophils (%) (Auto) 0.7 Basophils (%) (Auto) 0.1 Neutrophils # (Auto) 16.8 Lymphocytes # (Auto) 0.6 Monocytes # (Auto) 1.1 Eosinophils # (Auto) 0.1 Basophils # (Auto) 0.0 CBC Comment AUTO DIFF Differential Total Cells Counted 100 Neutrophils % (Manual) 79 Band Neutrophils % 19 Monocytes % 2 Neutrophils # (Manual) 18.2 Differential Comment FINAL DIFF MANUAL Toxic Granulation 1+ Toxic Vacuolation PRESENT Platelet Estimate NORMAL Platelet Morphology Comment NORMAL Prothrombin Time 10.0 Prothromb Time International Ratio 1.0 Activated Partial Thromboplast Time 25.9 Blood Urea Nitrogen 73 Creatinine 5.57 Random Glucose 734 Total Protein 6.9 Albumin 2.0 Calcium Level 9.3 Magnesium Level 2.6 Alkaline Phosphatase 295 Aspartate Amino Transf (AST/SGOT) 15 Alanine Aminotransferase (ALT/SGPT) 20 Total Bilirubin 1.1 Sodium Level 118 Potassium Level 4.6 Chloride Level 88 Carbon Dioxide Level 11.2 Anion Gap 19 Estimat Glomerular Filtration Rate 10 Total Creatine Kinase 36 Troponin I LESS THAN 0.02 C-Reactive Protein 36.00 Lipase 83 B-Hydroxybutyrate 3.63 Urine Color YELLOW Urine Turbidity CLOUDY Urine pH 5.0 Urine Specific Bend 1.008 Urine Protein 30 Urine Glucose (UA) >=500 Urine Ketones TRACE Urine Occult Blood MOD Urine Nitrite NEG Urine Bilirubin NEG Urine Urobilinogen LESS THAN 2 Urine Leukocyte Esterase LARGE Urine RBC 7 Urine WBC 111 Urine Squamous Epithelial Cells 1 Urine Amorphous Sediment RARE Urine Bacteria MANY Urine Mucus FEW Microscopic Urinalysis Comment CULTURE INDICATED Date/Time Source Procedure Growth Status 12/17/17 21:14 Blood Peripheral Aerobic Blood Culture Pending Received 12/17/17 21:14 Blood Peripheral Anaerobic Blood Culture Pending Received 12/17/17 23:40 Urine Clean Catch Urine Culture Pending Received Result Diagram: 12/17/17211312/[id number]/172113 Imaging Laboratory Tests Test 12/17/17 21:10 12/17/17 21:13 12/17/17 21:14 12/17/17 23:40 Venous Blood pH 7.11 Lactic Acid Level 1.6 mmol/L White Blood Count 18.6 TH/MM3 Red Blood Count 3.63 MIL/MM3 Hemoglobin 7.7 GM/DL Hematocrit 25.9 % Mean Corpuscular Volume 71.3 FL Mean Corpuscular Hemoglobin 21.3 PG Mean Corpuscular Hemoglobin Concent 29.9 % Red Cell Distribution Width 18.0 % Platelet Count 297 TH/MM3 Mean Platelet Volume 8.9 FL Neutrophils (%) (Auto) 90.1 % Lymphocytes (%) (Auto) 3.4 % Monocytes (%) (Auto) 5.7 % Eosinophils (%) (Auto) 0.7 % Basophils (%) (Auto) 0.1 % Neutrophils # (Auto) 16.8 TH/MM3 Lymphocytes # (Auto) 0.6 TH/MM3 Monocytes # (Auto) 1.1 TH/MM3 Eosinophils # (Auto) 0.1 TH/MM3 Basophils # (Auto) 0.0 TH/MM3 CBC Comment AUTO DIFF Differential Total Cells Counted 100 Neutrophils % (Manual) 79 % Band Neutrophils % 19 % Monocytes % 2 % Neutrophils # (Manual) 18.2 TH/MM3 Differential Comment FINAL DIFF MANUAL Toxic Granulation 1+ Toxic Vacuolation PRESENT Platelet Estimate NORMAL Platelet Morphology Comment NORMAL Prothrombin Time 10.0 SEC Prothromb Time International Ratio 1.0 RATIO Activated Partial Thromboplast Time 25.9 SEC Blood Urea Nitrogen 73 MG/DL Creatinine 5.57 MG/DL Random Glucose 734 MG/DL Total Protein 6.9 GM/DL Albumin 2.0 GM/DL Calcium Level 9.3 MG/DL Magnesium Level 2.6 MG/DL Alkaline Phosphatase 295 U/L Aspartate Amino Transf (AST/SGOT) 15 U/L Alanine Aminotransferase (ALT/SGPT) 20 U/L Total Bilirubin 1.1 MG/DL Sodium Level 118 MEQ/L Potassium Level 4.6 MEQ/L Chloride Level 88 MEQ/L Carbon Dioxide Level 11.2 MEQ/L Anion Gap 19 MEQ/L Estimat Glomerular Filtration Rate 10 ML/MIN Total Creatine Kinase 36 U/L Troponin I LESS THAN 0.02 NG/ML C-Reactive Protein 36.00 MG/DL Lipase 83 U/L B-Hydroxybutyrate 3.63 MMOL/L Urine Color YELLOW Urine Turbidity CLOUDY Urine pH 5.0 Urine Specific Bend 1.008 Urine Protein 30 mg/dL Urine Glucose (UA) >=500 mg/dL Urine Ketones TRACE mg/dL Urine Occult Blood MOD Urine Nitrite NEG Urine Bilirubin NEG Urine Urobilinogen LESS THAN 2 mg/dL Urine Leukocyte Esterase LARGE Urine RBC 7 /hpf Urine WBC 111 /hpf Urine Squamous Epithelial Cells 1 /hpf Urine Amorphous Sediment RARE Urine Bacteria MANY /hpf Urine Mucus FEW /lpf Microscopic Urinalysis Comment CULTURE INDICATED Septic Shock Reassessment Septic shock perfusion: reassessment completed Caprini VTE Risk Assessment Caprini VTE Risk Assessment: Mod/High Risk (score >= 2) Caprini Risk Assessment Model Point Value = 1 Point Value = 2 Point Value = 3 Point Value = 5 Age 41-60 Minor surgery BMI > 25 kg/m2 Swollen legs Varicose veins or History of unexplained or recurrent spontaneous Oral contraceptives or hormone replacement Sepsis (< 1 month) Serious lung disease, including pneumonia (< 1 month) Abnormal pulmonary function Acute myocardial infarction Congestive heart failure (< 1 month) History of inflammatory bowel disease Medical patient at bed rest Age 61-74 Arthroscopic surgery Major open surgery (> 45 min) Laparoscopic surgery (> 45 min) Malignancy Confined to bed (> 72 hours) Immobilizing plaster cast Central venous access Age >= 75 History of VTE Family history of VTE Factor V Leiden Prothrombin [id number] Lupus anticoagulant Anticardiolipin antibodies Elevated serum homocysteine Heparin-induced thrombocytopenia Other congenital or acquired thrombophilia Stroke (< 1 month) Elective arthroplasty Hip, pelvis, or leg fracture Acute spinal cord injury (< 1 month) Prophylaxis Regimen Total Risk Factor Score Risk Level Prophylaxis Regimen 0-1 Low Early ambulation 2 Moderate Order ONE of the following: *Sequential Compression Device (SCD) *Heparin 5000 units SQ BID 3-4 Higher Order ONE of the following medications: *Heparin 5000 units SQ TID *Enoxaparin/Lovenox 40 mg SQ daily (WT < 150 kg, CrCl > 30 mL/min) *Enoxaparin/Lovenox 30 mg SQ daily (WT < 150 kg, CrCl > 10-29 mL/min) *Enoxaparin/Lovenox 30 mg SQ BID (WT < 150 kg, CrCl > 30 mL/min) AND/OR *Sequential Compression Device (SCD) 5 or more Highest Order ONE of the following medications: *Heparin 5000 units SQ TID (Preferred with Epidurals) *Enoxaparin/Lovenox 40 mg SQ daily (WT < 150 kg, CrCl > 30 mL/min) *Enoxaparin/Lovenox 30 mg SQ daily (WT < 150 kg, CrCl > 10-29 mL/min) *Enoxaparin/Lovenox 30 mg SQ BID (WT < 150 kg, CrCl > 30 mL/min) AND *Sequential Compression Device (SCD) Assessment and Plan Assessment and Plan Sepsis secondary to UTI Severe anemia: Multifactorial, suspect secondary to CKD, iron deficiency, anemia of chronic disease anxiety disorder Uncontrolled diabetes mellitus DKA GERD hyperlipidemia hypertension Pelvic mass Plan: Neuro: Follow neuro status. Percocet as needed for pain. Cardiovascular: IV hydration, watch for hypotension. Pulmonary: Supplemental O2 as needed GI/liver: Clear liquids. Does not appear to have any melena or rectal bleeding currently. Renal/: Patient received 2 L NS in the ER. Continue IV fluids. Strict intake output, monitor and replete electrolytes, follow BUN/creatinine. Patient reportedly has been self catheterizing at home. CT abdomen pelvis shows obstructive uropathy with bilateral hydronephrosis. Sheikh catheter placed. Urology consult requested. Consulted Dr. Samano for pelvic mass. Endocrine: Continue DKA protocol. ID: Follow-up cultures. Received vancomycin 1 in the ER. Continue IV Zosyn. Heme: Iron studies ordered. Check B12/folate, LDH, direct Hema, RAMIRO. Will initiate IV iron sucrose in the a.m. as patient is hypochromic microcytic and most likely has iron deficiency. And MVI daily. Transfuse to keep hemoglobin above 7 g percent. Prophylaxis: PPI/SCDs. Start subcutaneous heparin tomorrow. Time spent on critical care excluding procedures 60 minutes Dash Pearson MD Dec 18, 2017 02:56
[2017-12-18] MEDS: oxyCODONE/ACETAMINOPHEN 5 MG/325 MG TAB PO PRN ×3 (02:57→18:42)
[2017-12-18] MEDS: CHLORHEXIDINE GLUCONATE 2 % 1 PACK (2 CLOTHS) TOP SCH (02:58)
[2017-12-18] MEDS: SODIUM CHLOR 0.9% 1000 ML INJ 1,000 ML IV SCH ×4 (02:58→11:32)
[2017-12-18 03:54] LABS: HEMATOCRIT 23.5 % (35.0-46.0); HEMOGLOBIN 7.2 GM/DL (11.6-15.3); MEAN CORPUSCULAR HEMOGLOBIN 21.3 PG (27.0-34.0); MEAN CORPUSCULAR HGB CONC 30.9 % (32.0-36.0); MEAN PLATELET VOLUME 8.3 FL (7.0-11.0); PLATELET COUNT 301 TH/MM3 (150-450); RED CELL DISTRIBUTION WIDTH 17.1 % (11.6-17.2); RETIC # 48.2 MIL/L (20.0-150.0); RETIC % 1.4 % (0.4-3.0); WHITE BLOOD COUNT 18.4 TH/MM3 (4.0-11.0)
[2017-12-18 04:05] LABS: PROTHROMBIN TIME - PATIENT 10.5 SEC (9.8-11.6)
[2017-12-18 04:21] LABS: WESTERGREN SEDIMENTATION RATE GREATER THAN 140 mm/hr (0-30)
[2017-12-18 04:24] LABS: ALBUMIN 1.8 GM/DL (3.4-5.0); ALT (GPT) 13 U/L (10-53); AST (GOT) 8 U/L (15-37); BICARBONATE 12.8 MEQ/L (21.0-32.0); BLOOD UREA NITROGEN 69 MG/DL (7-18); CALCIUM 8.8 MG/DL (8.5-10.1); CHLORIDE 99 MEQ/L (98-107); CREATININE 5.23 MG/DL (0.50-1.00); GLOMERULAR FILTRATION RATE 10 ML/MIN (>89); GLUCOSE,RANDOM 341 MG/DL (74-106); MAGNESIUM 2.4 MG/DL (1.5-2.5); SODIUM (NA) 128 MEQ/L (136-145)
[2017-12-18 04:25] LABS: ALKALINE PHOSPHATASE 275 U/L (45-117); TOTAL BILIRUBIN ADULT 0.8 MG/DL (0.2-1.0); TOTAL PROTEIN 6.5 GM/DL (6.4-8.2)
[2017-12-18 04:42] LABS: BANDS 33 % (0-6); LYMPHOCYTES 2 % (9-44); METAMYELOCYTES 1 % (0-1); MONOCYTES 2 % (0-8); NEUTROPHIL # MANUAL DIFF 17.7 TH/MM3 (1.8-7.7); POLYS (SEG NEUTROPHILS) 62 % (16-70); TOXIC VACUOLATION PRESENT (NONE SEEN)
[2017-12-18 04:43] LABS: TOXIC GRANULATION 1+ (NORMAL)
[2017-12-18] MEDS: POTASSIUM CHLOR 20 MEQ PREMIX 100 ML IV PRN ×4 (05:38→22:52)
--- NOTE | 2017-12-18 05:56 | RADRPT ---
EXAM DATE: 12/18/2017 5:12 AM EDT AGE/SEX: 57 years / Female INDICATIONS: Short of breath. CLINICAL DATA: This is the patient's subsequent encounter. Patient reports that signs and symptoms h ave been present for 2 days and indicates a pain score of 0/10. MEDICAL/SURGICAL HISTORY: . Hypertension. Ulcer. Diabetes Non-responsive. COMPARISON: [facility] [place], CHEST SINGLE AP, 12/17/2017. . FINDINGS: A single AP view of the chest demonstrates the lungs to be symmetrically aerated without evidence of mass, infiltrate or effusion. The cardiomediastinal contours are unremarkable. Osseous structures a re intact. CONCLUSION: Negative examination. Electronically signed by: Manolo Liriano MD 12/18/2017 5:55 AM EDT
[2017-12-18] MEDS: ONDANSETRON ODT 4 MG TAB PO PRN (06:04)
[2017-12-18] MEDS: PANTOPRAZOLE SOD 40 MG DELAYED RELEASE TAB PO SCH (08:23)
[2017-12-18] MEDS: VITAMIN B CMPLX/VITC/FOLIC AC CAP PO SCH (08:23)
[2017-12-18] MEDS: DOCUSATE SODIUM 50 MG/SENNA 8.6 MG TAB PO SCH ×2 (08:23→21:00)
[2017-12-18] MEDS: SODIUM CHLORIDE 0.9% FLUSH 10 ML FLUSH IV FLUSH SCH ×2 (08:24→21:00)
[2017-12-18] MEDS: IRON SUCROSE INJ 100 MG in SODIUM CHLORIDE 0.9% INJ 100 ML IV SCH (08:24)
[2017-12-18] MEDS ORDERED: MINERAL OIL ENEMA 118 ML BTL RECTAL SCH (09:45)
--- NOTE | 2017-12-18 09:47 | PD.CONS ---
[facility] Service Nephrology Consult Requested By Reason for Consult Acute Renal Failure Primary Care Physician Unknown History of Present Illness This is a 57 y/o AAF who had normal renal function in September. We had seen her in October for SANDY, it was due to obstructive uropathy. At that time her creatinine was 5.68 and improved to 3.37. She was discharged home and instructed to self cath TID and follow up with urology and [employer] [facility]. She was admitted overnight for fatigue, nausea/vomiting, and feeling unwell. Her creatinine was 5.57 and improved only to 5.52 today. She is making urine. She is also in DKA with glucose that was 700s and is improving. She also has pseudohyponatremia and metabolic acidosis. Imaging shows bilateral hydronephrosis with significant bladder distention, and large adnexal mass with significant stool in her colon. She is due for D&C outpatient and is being seen by urology at this time. Her vitals are stable. We were consulted to assist with management. (Amber Mckinney) Review of Systems Constitutional: COMPLAINS OF: Fatigue Respiratory: DENIES: Shortness of breath Cardiovascular: DENIES: Lower Extremity Edema Gastrointestinal: DENIES: Abdominal pain (Amber Mckinney) Past Family Social History Allergies: Coded Allergies: No Known Allergies (Verified Allergy, Unknown, 10/30/17) Past Medical History Diabetes mellitus II Frequent SANDY due to chronic urinary retention due to adnexal mass Hypertension Hyperlipidemia History of urinary retention History of constipation Past Surgical History R ankle L knee Reported Medications Lisinopril 5 mg daily Other HTN meds unknown. Active Ordered Medications Current Medications Medications (Trade) Dose Ordered Sig/Elroy Route Start Time Stop Time Status Last Admin Sodium Chloride 1,000 ml @ 250 mls/hr Q4H IV 12/17/17 21:23 12/18/17 05:57 Dextrose/Sodium Chloride 1,000 ml @ 200 mls/hr Q5H IV 12/17/17 21:23 12/18/17 08:24 Insulin Human Regular 100 units/ Sodium Chloride 100 ml @ 8 mls/hr TITRATE PRN IV 12/17/17 21:30 12/17/17 23:08 Potassium Chloride 100 ml @ 100 mls/hr Q1H PRN IV 12/17/17 21:30 Potassium Chloride 100 ml @ 50 mls/hr Q2H PRN IV 12/17/17 21:30 Potassium Chloride 100 ml @ 100 mls/hr Q1H PRN IV 12/17/17 21:30 Potassium Chloride 100 ml @ 100 mls/hr Q1H PRN IV 12/17/17 21:30 Potassium Chloride 100 ml @ 50 mls/hr Q2H PRN IV 12/17/17 21:30 Potassium Chloride 100 ml @ 50 mls/hr Q2H PRN IV 12/17/17 21:30 Potassium Chloride 100 ml @ 50 mls/hr Q2H PRN IV 12/17/17 21:30 12/18/17 05:38 Potassium Chloride 100 ml @ 50 mls/hr Q2H PRN IV 12/17/17 21:30 (Sodium Bicarbonate 8.4% Inj) 100 meq UNSCH PRN IV PUSH 12/17/17 21:30 (Sodium Bicarbonate 8.4% Inj) 50 meq UNSCH PRN IV PUSH 12/17/17 21:30 Sodium Phosphate 15 mmol/Sodium Chloride 105 ml @ 25 mls/hr UNSCH PRN IV 12/17/17 21:30 (NS Flush) 2 ml UNSCH PRN IV FLUSH 12/17/17 23:15 (NS Flush) 2 ml BID IV FLUSH 12/18/17 09:00 12/18/17 08:24 (Tylenol) 650 mg Q6H PRN PO 12/17/17 23:15 (Protonix) 40 mg DAILY PO 12/18/17 09:00 12/18/17 08:23 (Zofran Odt) 4 mg Q6H PRN PO 12/17/17 23:45 12/18/17 06:04 (Duoneb Neb) 1 ampule Q2HR NEB PRN INH 12/17/17 23:15 ([facility] Information) 1 Q361D XX 12/17/17 23:15 12/18/17 02:57 (Chlorhexidine 2% Cloth) 3 pack Taper DAILY@04 TOP 12/18/17 04:00 12/14/18 03:59 12/18/17 02:58 (Chlorhexidine 2% Cloth) 3 pack UNSCH PRN TOP 12/17/17 23:15 (Debi-Colace) 1 tab BID PO 12/18/17 09:00 12/18/17 08:23 (Milk Of Magnesia Liq) 30 ml Q12H PRN PO 12/17/17 23:15 (Senokot) 17.2 mg Q12H PRN PO 12/17/17 23:15 (Dulcolax Supp) 10 mg DAILY PRN RECTAL 12/17/17 23:15 (Lactulose Liq) 30 ml DAILY PRN PO 12/17/17 23:15 Piperacillin Sod/ Tazobactam Sod 50 ml @ 100 mls/hr Q8H IV 12/18/17 08:00 Iron Sucrose 100 mg/Sodium Chloride 105 ml @ 105 mls/hr DAILY IV 12/18/17 09:00 12/20/17 09:59 12/18/17 08:24 (Nephrocaps) 1 cap DAILY PO 12/18/17 09:00 12/18/17 08:23 (Percocet 5-325 Mg) 1 tab Q4H PRN PO 12/18/17 02:30 12/18/17 02:57 Family History Non contributory Social History Former smoker 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 Lives alone Ambulatory full code (Amber Mckinney) Physical Exam Vital Signs Vital Signs Date Time Temp Pulse Resp B/P (MAP) Pulse Ox O2 Delivery O2 Flow Rate FiO2 12/18/17 08:00 102 12/18/17 04:00 98.4 109 21 78/49 (59) 93 12/18/17 02:45 98.8 122 20 100/59 (73) 100 12/18/17 02:23 12/18/17 00:00 112 18 111/61 (78) 98 Room Air 12/17/17 23:31 98 12/17/17 23:00 114 18 112/64 (80) 100 Room Air 12/17/17 20:24 98.4 114 19 106/64 (78) 98 Physical Exam Middle aged AAF lying in bed Awake, alert, not in distress S1/S2, RRR no murmurs Lungs clear Abd obese, soft, tender throughout alcaraz draining dark but clear urine Ext no edema skin intact Laboratory Laboratory Tests Test 12/17/17 21:10 12/17/17 21:13 12/17/17 21:14 12/17/17 23:40 Venous Blood pH 7.11 Lactic Acid Level 1.6 White Blood Count 18.6 Red Blood Count 3.63 Hemoglobin 7.7 Hematocrit 25.9 Mean Corpuscular Volume 71.3 Mean Corpuscular Hemoglobin 21.3 Mean Corpuscular Hemoglobin Concent 29.9 Red Cell Distribution Width 18.0 Platelet Count 297 Mean Platelet Volume 8.9 Neutrophils (%) (Auto) 90.1 Lymphocytes (%) (Auto) 3.4 Monocytes (%) (Auto) 5.7 Eosinophils (%) (Auto) 0.7 Basophils (%) (Auto) 0.1 Neutrophils # (Auto) 16.8 Lymphocytes # (Auto) 0.6 Monocytes # (Auto) 1.1 Eosinophils # (Auto) 0.1 Basophils # (Auto) 0.0 CBC Comment AUTO DIFF Differential Total Cells Counted 100 Neutrophils % (Manual) 79 Band Neutrophils % 19 Monocytes % 2 Neutrophils # (Manual) 18.2 Differential Comment FINAL DIFF MANUAL Toxic Granulation 1+ Toxic Vacuolation PRESENT Platelet Estimate NORMAL Platelet Morphology Comment NORMAL Prothrombin Time 10.0 Prothromb Time International Ratio 1.0 Activated Partial Thromboplast Time 25.9 Blood Urea Nitrogen 73 Creatinine 5.57 Random Glucose 734 Total Protein 6.9 Albumin 2.0 Calcium Level 9.3 Magnesium Level 2.6 Alkaline Phosphatase 295 Aspartate Amino Transf (AST/SGOT) 15 Alanine Aminotransferase (ALT/SGPT) 20 Total Bilirubin 1.1 Sodium Level 118 Potassium Level 4.6 Chloride Level 88 Carbon Dioxide Level 11.2 Anion Gap 19 Estimat Glomerular Filtration Rate 10 Total Creatine Kinase 36 Troponin I LESS THAN 0.02 C-Reactive Protein 36.00 Lipase 83 B-Hydroxybutyrate 3.63 Urine Color YELLOW Urine Turbidity CLOUDY Urine pH 5.0 Urine Specific Springer 1.008 Urine Protein 30 Urine Glucose (UA) >=500 Urine Ketones TRACE Urine Occult Blood MOD Urine Nitrite NEG Urine Bilirubin NEG Urine Urobilinogen LESS THAN 2 Urine Leukocyte Esterase LARGE Urine RBC 7 Urine WBC 111 Urine Squamous Epithelial Cells 1 Urine Amorphous Sediment RARE Urine Bacteria MANY Urine Mucus FEW Microscopic Urinalysis Comment CULTURE INDICATED Test 12/18/17 02:40 12/18/17 03:36 Nasal Screen MRSA (PCR) MRSA NOT DETECTED White Blood Count 18.4 Red Blood Count 3.40 Hemoglobin 7.2 Hematocrit 23.5 Mean Corpuscular Volume 69.0 Mean Corpuscular Hemoglobin 21.3 Mean Corpuscular Hemoglobin Concent 30.9 Red Cell Distribution Width 17.1 Platelet Count 301 Mean Platelet Volume 8.3 CBC Comment AUTO DIFF Differential Total Cells Counted 100 Neutrophils % (Manual) 62 Band Neutrophils % 33 Lymphocytes % 2 Monocytes % 2 Neutrophils # (Manual) 17.7 Metamyelocytes 1 Differential Comment FINAL DIFF MANUAL Toxic Granulation 1+ Toxic Vacuolation PRESENT Platelet Estimate NORMAL Platelet Morphology Comment NORMAL Erythrocyte Sedimentation Rate GREATER THAN 140 Reticulocyte Count 1.4 Absolute Reticulocyte Count 48.2 Prothrombin Time 10.5 Prothromb Time International Ratio 1.0 Blood Urea Nitrogen 69 Creatinine 5.23 Random Glucose 341 Total Protein 6.5 Albumin 1.8 Calcium Level 8.8 Phosphorus Level 3.0 Magnesium Level 2.4 Alkaline Phosphatase 275 Aspartate Amino Transf (AST/SGOT) 8 Alanine Aminotransferase (ALT/SGPT) 13 Total Bilirubin 0.8 Sodium Level 128 Potassium Level 4.1 Chloride Level 99 Carbon Dioxide Level 12.8 Anion Gap 16 Estimat Glomerular Filtration Rate 10 Lactic Acid Level 3.6 Date/Time Source Procedure Growth Status 12/17/17 21:14 Blood Peripheral Aerobic Blood Culture Pending Received 12/17/17 21:14 Blood Peripheral Anaerobic Blood Culture Pending Received 12/17/17 23:40 Urine Clean Catch Urine Culture Pending Received (Amber Mckinney) Result Diagram: 12/18/17 0336 12/18/17 0336 Imaging Last 72 hours Impressions Chest X-Ray 12/18/17 0600 Signed Impressions: CONCLUSION: Negative examination. Abdomen/Pelvis CT 12/17/172206 Signed Impressions: CONCLUSION: 1. Markedly distended bladder with mild to moderate bilateral hydronephrosis. 2. Rectal impaction measuring up to 8.5 cm in diameter. 3. Lobulated mass in left adnexal region extending into left lower quadrant si milar in appearance to August and October 2017. Cannot exclude a slow growing ovaria n neoplasm. Chest X-Ray 12/17/172024 Signed Impressions: CONCLUSION: Negative examination. (Amber Mckinney) Assessment and Plan Problem List: (1) SANDY (acute kidney injury) ICD Codes: N17.9 - Acute kidney failure, unspecified Status: Acute Plan: Her creatinine was normal in September Since then she has had multiple episodes of SANDY due to chronic obstruction Also in DKA which will cause intravascular volume depletion She was on lisinopril daily until today Her exact baseline is not known, creatinine 3.37 at time of discharge last admission She is non oliguric Metabolic acidosis is present, start bicarb gtt (SW with 2 amps at 75 cc/hr) Monitor urine output Avoid hypotension Pseudohyponatremia due to hyperglycemia, monitor Avoid nephrotoxic agents, renally dose appropriate to renal status PO Fluids encouraged when allowed to eat Repeat labs (2) DKA (diabetic ketoacidoses) ICD Codes: E13.10 - Other specified diabetes mellitus with ketoacidosis without coma Status: Acute Plan: On insulin gtt per protocol (3) UTI (urinary tract infection) ICD Codes: N39.0 - Urinary tract infection, site not specified Status: Acute Plan: On Rocephin and Zosyn Lactic acid 3.6 , leukocytosis present Cultures in progress (4) Adnexal mass ICD Codes: N94.9 - Unspecified condition associated with female genital organs and menstrual cycle Plan: Will need D&C, scheduled outpatient but may require this admission [employer] consultation is ordered (5) Bilateral hydronephrosis ICD Codes: N13.30 - Unspecified hydronephrosis Plan: Due to adnexal mass and fecal impaction Urology following Ordered enemas (6) Anemia ICD Codes: D64.9 - Anemia, unspecified Plan: Microcytic hypochromic anemia, ordered IV Venofer, which should be held during sepsis May need transfusion. Check iron profile. (7) Fecal impaction ICD Codes: K56.41 - Fecal impaction Status: Resolved Plan: Enemas ordered (Amber Mckinney) Assessment and Plan patient was seen and examined. SANDY due to obstructive uropathy. Dehydration also could be playing a role. No need for bicarbonate drip at this time. Continue insulin drip per protocol. Urology evaluation. Has a Alcaraz catheter. (Bruce Kang MD) Problem Qualifiers (1) DKA (diabetic ketoacidoses): Qualified Codes: E11.10 - Type 2 diabetes mellitus with ketoacidosis without coma (2) UTI (urinary tract infection): Qualified Codes: T83.511A - Infection and inflammatory reaction due to indwelling urethral catheter, initial encounter; N39.0 - Urinary tract infection , site not specified Amber Mckinney Dec 18, 2017 09:47 Bruce Kang MD Dec 18, 2017 15:13
[2017-12-18] MEDS: INSULIN REGULAR (IV INFUSION) 100 UNITS in SODIUM CHLORIDE 0.9% INJ 99 ML IV PRN (10:03)
[2017-12-18 10:04] LABS: BICARBONATE 13.6 MEQ/L (21.0-32.0); CALCIUM 9.1 MG/DL (8.5-10.1); CREATININE 4.92 MG/DL (0.50-1.00); MAGNESIUM 2.4 MG/DL (1.5-2.5); PHOSPHORUS 3.1 MG/DL (2.5-4.9)
--- NOTE | 2017-12-18 10:09 | MB ---
cc: Jose Guadalupe Hernandez DO DATE: 12/18/2017 HISTORY OF PRESENT ILLNESS: This is a 57-year-old female who has been in and out of the hospital over the last 6 months. She returns repeatedly with constipation with a large amount of stool in the vault which causes urinary retention. She was instructed to perform clean intermittent catheterization. It is unclear if she is actually doing this at home. She has also been instructed to be on a bowel regimen. However, this does not seem to be adhered to. She states that she was told she had a recent urinary tract infection which was not treated. She also has a history of a left ovarian mass and she is planning to have a D and C soon by Dr. Samano. She also has an elevation of her glucose and was found to be in DKA in the emergency room. She presently has a Sheikh catheter in and her creatinine is elevated at 5.57. PAST MEDICAL HISTORY: Her medical problems include left ovarian mass, anxiety, depression, heart disease, high cholesterol, diabetes, GERD, hypertension. PAST SURGICAL HISTORY: Right ankle ORIF, left knee surgery. SOCIAL HISTORY: Occasional smoker. Denies drinking or using drugs. ALLERGIES: SHE HAS NO KNOWN DRUG ALLERGIES. MEDICATIONS: Please refer to the chart. FAMILY HISTORY: Noncontributory. REVIEW OF SYSTEMS: Denies chest pain, shortness of breath. She does have some nausea, vomiting and abdominal pain. She also has diminished urinary output. She denies bleeding disorders. She does have generalized weakness. She denies headaches. Remaining review of systems were reviewed and were negative. PHYSICAL EXAMINATION: VITAL SIGNS: Today, temperature 98.4, heart rate 102, blood pressure 78/49, 93% on room air. GENERAL: She is a well-developed, well-nourished, 57-year-old female in no acute distress. HEENT: Normocephalic, atraumatic. Pupils equal, round, regular, react to light. Extraocular movements intact. NECK: Supple. HEART: Regular rate and rhythm. LUNGS: Clear. ABDOMEN: Soft with some mild tenderness noted. No rebound or guarding is noted. : Sheikh catheter is in place draining clear urine. EXTREMITIES: Extremities show no evidence of cyanosis, clubbing, or edema. LABORATORY DATA: White count 18.4, hemoglobin 7.2, hematocrit 23.5, and platelet count of 301. Sodium 128, potassium 4.1, chloride 99, CO2 12.8, BUN is 69, creatinine 5.23, glucose of 341. Lactic acid is 3.6. Urinalysis shows 111 white cells with 7 red cells. Culture is pending. IMAGING STUDIES: CT scan of the abdomen and pelvis shows markedly distended bladder with mild to moderate hydronephrosis. Rectal impaction measuring up to 8.5 cm in diameter, lobulated mass in the left adnexal region. ASSESSMENT: A 57-year-old female with constipation, in diabetic ketoacidosis with urinary retention and a left ovarian mass. PLAN: Continue with Sheikh catheter drainage. Monitor creatinine and, as the acute renal failure resolves, Fleet's enema with disimpaction. PEDORTHIST consult to evaluate left ovarian mass, which could also be contributing to her constipation. We will follow with you. Thank you for the consult. DO NOEMY Sullivan/JESSICA , 09:40 AM , 10:08 AM [email or web address]
[2017-12-18 10:52] LABS: TROPONIN I LESS THAN 0.02 NG/ML (0.02-0.05)
[2017-12-18] MEDS ORDERED: SODIUM BICARBONATE 8.4% INJ 100 MEQ in WATER STERILE FOR INJ 900 ML IV SCH (11:00)
[2017-12-18] MEDS ORDERED: SODIUM CHLOR 0.9% 1000 ML INJ 1,000 ML IV SCH (11:15)
[2017-12-18] MEDS: MINERAL OIL ENEMA 118 ML BTL RECTAL SCH (11:30)
[2017-12-18] MEDS: PIPERACIL-TAZO 2.25 GM PREMIX 50 ML IV SCH ×3 (11:31→22:53)
--- NOTE | 2017-12-18 14:21 | MB ---
cc: Yudith Samano MD,Jose Guadalupe Shah MD, Awais M MD DATE: 12/18/2017 PHYSICIAN REQUESTING CONSULTATION: Dash Pearson MD REASON FOR CONSULTATION: Pelvic mass (or pelvic masses). Elise Nathna is seen, counseled and examined by me, and her findings are reviewed in conjunction with our nurse practitioner (Melissa Chapa). I agree with the findings, assessment and plan of care. HISTORY OF PRESENT ILLNESS: This is a 57-year-old female who was readmitted to the hospital for what she describes as weakness and pain, essentially all over. She felt as though she lost her ability to stand, as her legs were quite weak. She has some neuropathy type pain, some abdominal distention, and discomfort and overall was just feeling poorly, such that she presented to the emergency room. She also reports that her blood sugar was greater than 1000 by EMS fingerstick. She has had preexisting problems, neurogenic type bladder with inability to void. She has been advised to do intermittent catheterization. She has difficulty with bowel function and obstipation and for a combination of these findings, she presented and is now admitted to the hospital for further evaluation and management. Previously noted was a pelvic mass (and/or masses) as there seems to be both a prominent uterus and possible prominent adnexa. She denies any vaginal bleeding, spotting or blood tinged discharge. We have seen her in our office in consultation. We recommended an examination under anesthesia with fractional dilation and curettage to better understand the cervical and uterine anatomy with the understanding that further evaluation may be recommended to address the adnexal mass. In the process of trying to get her approved for this procedure, she had an abnormal EKG that was suggestive of ischemia and/or infarct requiring updated cardiac evaluation. Cardiac evaluation was obtained, and I believe she was felt to be at moderate risk, but was nonetheless, given that context, cleared for surgical procedure as per our recommendation. She is scheduled for this procedure, but I do not think it is scheduled logistically until early December. Nevertheless, from a gynecologic standpoint, nothing has changed in her findings. Repeat imaging shows similar findings compared to prior CAT scan with the overall impression being a lobulated mass in the left adnexal region extending into the left lower quadrant, similar in appearance to August and October of 2017. Also noted was a markedly distended bladder and rectal impaction with mild to moderate hydronephrosis. There is no free fluid. No intraperitoneal nodularity, mass, or adenopathy are described, although these are also not included in the pertinent negative report from the CAT scan. In my review of the images, the mass (or masses) appear unchanged. There is a central mass with a thickened capsule, raising the possibility of a markedly distended uterus full of fluid or blood and it extends down into the low pelvis that actually seems most consistent with her markedly overdistended bladder with probably some chronic thickening to her bladder wall centrally. There is a mass-like effect that appears solid. It is irregular in shape and contour, seems to be anatomically located between the bladder and the rectum, suggesting the possibility again of cervical or uterine abnormality. There is also fullness in the left adnexa a bit difficult to clarify and nonetheless, stable compared to prior exam. PAST MEDICAL HISTORY: Type 2 diabetes, pelvic mass (or masses), neurogenic bladder, obstipation, anxiety, hypertension, elevated cholesterol, gastroesophageal reflux, peripheral neuropathy. PAST SURGICAL HISTORY: Knee surgery. She has had a prior colonoscopy. FAMILY HISTORY: Details are unknown. SOCIAL HISTORY: Presently not . Tobacco use positive GYNECOLOGIC HISTORY: One and one . ALLERGIES: NO KNOWN DRUG ALLERGIES. MEDICATIONS: As listed in the record. REVIEW OF SYSTEMS: As listed in the history of present illness. LABORATORY DATA: White count elevated at 18.4, H and H 7.2 and 23.5. Electrolytes: Sodium 130, BUN and creatinine are 69 and 4.92. INR 1.0. Urinalysis is such that culture is indicated. Blood cultures are positive for gram-negative rods. PHYSICAL EXAMINATION: VITAL SIGNS: Afebrile. At the present time, pulse 104, respirations 24, blood pressure 113/59, O2 saturation 99%. GENERAL: She is alert and oriented x 3, talkative, remembers me from our prior encounter, seems oriented. HEENT: Mucous membranes are dry. LYMPHATIC NODE SURVEY: Negative. BACK: Without overt CVA tenderness or spinal point tenderness. CARDIOVASCULAR: Rapid regular rate and rhythm. LUNGS: Clear bilaterally. Mild basilar rales. ABDOMEN: Prominent. It is diffusely uncomfortable on exam, but nonacute, without rebound or guarding. There is a fullness in the central lower abdomen. EXTREMITIES: Decreased sensation with some areas of hypersensitivity. No palpable cords. Warm with some arthritic changes and some apparent decreased range of motion. Time is spent in discussion with her, reviewing the findings in her case to date. I reminded her of our prior consultative discussion, the findings on CAT scan, our recommendations for further evaluation and related topics. She expresses good understanding. Questions were asked and answered. I am sorry that she is feeling poorly and we will need to have her improved from her overall medical standpoint, defer to recommendations of her other care providers. Our plan from a gynecologic standpoint remains the same, that when she is able and when logistically possible, we will move forward with exam under anesthesia, evaluation of cervix and uterus, biopsies, fractional dilation and curettage, take that information into consideration to determine what, if any additional recommendations would be made and/or whether or not she would be a candidate for surgery to evaluate the adnexal mass or other findings. Discussion ensued. Questions were answered. She expressed good understanding and agreed. ASSESSMENT: 1. Probable uterine mass, probable adnexal mass. 2. Markedly distended bladder with neurogenic bladder. 3. Colonic obstipation. 4. Multiple medical problems as outlined above, including poorly controlled diabetes, decreased performance status. 5. Discussion. PLAN: 1. We will continue present management from a medical standpoint. 2. When she improves and when logistically possible, we would recommend, as previously discussed, an examination under anesthesia with biopsies of the cervix, fractional dilation and curettage. Thank you for the consultation. MD MARCUS Morillo/RONEL , 01:36 PM , 02:20 PM
[2017-12-18 15:39] LABS: ALBUMIN 1.7 GM/DL (3.4-5.0); AST (GOT) 14 U/L (15-37); BICARBONATE 13.2 MEQ/L (21.0-32.0); BLOOD UREA NITROGEN 66 MG/DL (7-18); CALCIUM 8.8 MG/DL (8.5-10.1); CHLORIDE 105 MEQ/L (98-107); CREATININE 4.72 MG/DL (0.50-1.00); GLOMERULAR FILTRATION RATE 12 ML/MIN (>89); GLUCOSE,RANDOM 185 MG/DL (74-106); IRON (FE) 76 MCG/DL (50-170); MAGNESIUM 2.3 MG/DL (1.5-2.5); PHOSPHORUS 3.1 MG/DL (2.5-4.9); SODIUM (NA) 133 MEQ/L (136-145)
[2017-12-18] MEDS: DEXTROSE 5% IN WATE 1000ML INJ 1,000 ML IV SCH ×2 (15:58→21:50)
[2017-12-18 16:04] LABS: % SATURATION IRON PROFILE 55.4 % (20-50); ALKALINE PHOSPHATASE 245 U/L (45-117); ALT (GPT) 13 U/L (10-53); FERRITIN 632 NG/ML (8-252); TOTAL BILIRUBIN ADULT 1.9 MG/DL (0.2-1.0); TOTAL IRON BINDING CAPACITY 137 MCG/DL (250-450); TOTAL PROTEIN 6.1 GM/DL (6.4-8.2)
--- NOTE | 2017-12-18 17:19 | EKG ---
Date Performed: 12/17/2017 Time Performed: 21:52:36 PTAGE: 57 years EKG: SINUS TACHYCARDIA WITH OCCASIONAL SUPRAVENTRICULAR PREMATURE COMPLEXES POSSIBLE LEFT ATRIAL ENLARGEMENT ABNORMAL RHYTHM ECG PREVIOUS TRACING : 11/08/2017 15.02 Since the previous tracing, no significant change noted DOCTOR: Roro Ramirez Interpretating Date/Time 12/18/2017 17:17:28
--- NOTE | 2017-12-18 17:19 | EKG ---
Date Performed: 12/18/2017 Time Performed: 08:53:39 PTAGE: 57 years EKG: SINUS TACHYCARDIA WITH FREQUENT SUPRAVENTRICULAR PREMATURE COMPLEXES ABNORMAL RHYTHM ECG PREVIOUS TRACING : 12/17/2017 21.52 Since the previous tracing, no significant change noted DOCTOR: Roro Ramirez Interpretating Date/Time 12/18/2017 17:17:40
[2017-12-18 22:03] LABS: BICARBONATE 13.7 MEQ/L (21.0-32.0); CALCIUM 9.4 MG/DL (8.5-10.1); CREATININE 4.78 MG/DL (0.50-1.00); MAGNESIUM 2.3 MG/DL (1.5-2.5)
[2017-12-18 22:04] LABS: PHOSPHORUS 2.3 MG/DL (2.5-4.9)
[2017-12-19] VITALS (11 sets, daily range): BP systolic 107–169; BP diastolic 59–77; PULSE 97–112; RESP 16–33; TEMP 98.2–98.7; O2SAT 96–100
[2017-12-19] MEDS: POTASSIUM CHLOR 20 MEQ PREMIX 100 ML IV PRN (00:47)
[2017-12-19] MEDS: oxyCODONE/ACETAMINOPHEN 5 MG/325 MG TAB PO PRN ×4 (00:51→22:21)
[2017-12-19] MEDS ORDERED: DEXTROSE 50% IN WATER 50 ML VIAL(D50) IV PUSH PRN (02:15)
[2017-12-19] MEDS ORDERED: INSULIN HUMAN NPH 1,000 UNITS/10 ML VIAL SQ ONE (02:15)
[2017-12-19] MEDS ORDERED: DC Insulin drip 2 hrs post basal insulin dose ONE (02:15)
[2017-12-19] MEDS ORDERED: DC previous DKA orders (HMC 1917) ONE (02:15)
[2017-12-19] MEDS ORDERED: GLUCAGON 1 MG/ML VIAL OTHER PRN (02:15)
[2017-12-19] MEDS ORDERED: DEXTROSE 50% IN WATER 50 ML VIAL(D50) IV PRN (02:30)
[2017-12-19] MEDS ORDERED: GLUCAGON 1 MG/ML VIAL IM/SQ PRN (02:30)
[2017-12-19] MEDS ORDERED: INSULIN REGULAR (IV INFUSION) 100 UNITS in SODIUM CHLORIDE 0.9% INJ 99 ML IV PRN (02:30)
[2017-12-19] MEDS: CHLORHEXIDINE GLUCONATE 2 % 1 PACK (2 CLOTHS) TOP SCH (02:57)
[2017-12-19 04:29] LABS: AUTOMATED NEUTROPHIL # 15.3 TH/MM3 (1.8-7.7); BASOPHIL # 0.1 TH/MM3 (0-0.2); BASOPHIL % 0.3 % (0.0-2.0); EOSINOPHIL # 0.1 TH/MM3 (0-0.4); EOSINOPHIL % 0.6 % (0.0-4.0); HEMATOCRIT 24.8 % (35.0-46.0); HEMOGLOBIN 7.8 GM/DL (11.6-15.3); LYMPH % 21.5 % (9.0-44.0); LYMPHOCYTE # 4.6 TH/MM3 (1.0-4.8); MEAN CELL VOLUME 71.5 FL (80.0-100.0); MEAN CORPUSCULAR HEMOGLOBIN 22.4 PG (27.0-34.0); MEAN CORPUSCULAR HGB CONC 31.4 % (32.0-36.0); MONO % 5.4 % (0.0-8.0); MONOCYTE # 1.1 TH/MM3 (0-0.9); NEUT % 72.2 % (16.0-70.0); PLATELET COUNT 271 TH/MM3 (150-450); RED BLOOD COUNT 3.47 MIL/MM3 (4.00-5.30); RED CELL DISTRIBUTION WIDTH 17.8 % (11.6-17.2); WHITE BLOOD COUNT 21.2 TH/MM3 (4.0-11.0)
[2017-12-19 04:45] LABS: ALBUMIN 1.6 GM/DL (3.4-5.0); BICARBONATE 11.8 MEQ/L (21.0-32.0); BLOOD UREA NITROGEN 70 MG/DL (7-18); CALCIUM 8.9 MG/DL (8.5-10.1); CHLORIDE 103 MEQ/L (98-107); GLUCOSE,RANDOM 178 MG/DL (74-106); MAGNESIUM 2.1 MG/DL (1.5-2.5); SODIUM (NA) 129 MEQ/L (136-145)
[2017-12-19 04:52] LABS: ALKALINE PHOSPHATASE 240 U/L (45-117); ALT (GPT) 13 U/L (10-53); AST (GOT) 18 U/L (15-37); CREATININE 4.81 MG/DL (0.50-1.00); GLOMERULAR FILTRATION RATE 11 ML/MIN (>89); PHOSPHORUS 2.7 MG/DL (2.5-4.9); TOTAL BILIRUBIN ADULT 2.4 MG/DL (0.2-1.0)
[2017-12-19 05:08] LABS: BANDS 9 % (0-6); CORRECTED NUCLEATED RBC 1 /100 WBC (0-0); LYMPHOCYTES 6 % (9-44); METAMYELOCYTES 2 % (0-1); MONOCYTES 3 % (0-8); NEUTROPHIL # MANUAL DIFF 19.1 TH/MM3 (1.8-7.7); NUCLEATED RED BLOOD CELL 1 (0-0); POLYS (SEG NEUTROPHILS) 79 % (16-70)
[2017-12-19] MEDS: ONDANSETRON ODT 4 MG TAB PO PRN (05:46)
[2017-12-19] MEDS ORDERED: SODIUM CHLOR 0.9% 1000 ML INJ 1,000 ML IV SCH (06:00)
[2017-12-19] MEDS: INSULIN HUMAN NPH 1,000 UNITS/10 ML VIAL SQ SCH ×2 (08:57→20:00)
[2017-12-19] MEDS: INSULIN ASPART SUPPLEMENTAL SCALE SQ SCH ×4 (08:57→21:00)
[2017-12-19] MEDS: PANTOPRAZOLE SOD 40 MG DELAYED RELEASE TAB PO SCH (08:59)
[2017-12-19] MEDS: SODIUM CHLORIDE 0.9% FLUSH 10 ML FLUSH IV FLUSH SCH ×2 (09:00→22:11)
[2017-12-19] MEDS: VITAMIN B CMPLX/VITC/FOLIC AC CAP PO SCH (09:00)
[2017-12-19] MEDS: DOCUSATE SODIUM 50 MG/SENNA 8.6 MG TAB PO SCH ×2 (09:00→22:14)
[2017-12-19] MEDS: MINERAL OIL ENEMA 118 ML BTL RECTAL SCH (09:00)
[2017-12-19] MEDS: IRON SUCROSE INJ 100 MG in SODIUM CHLORIDE 0.9% INJ 100 ML IV SCH (09:01)
[2017-12-19] MEDS: PIPERACIL-TAZO 2.25 GM PREMIX 50 ML IV SCH ×2 (09:01→19:59)
--- NOTE | 2017-12-19 10:43 | HHI.CCPN ---
Subjective Remarks/Hospital Course The patient is a 57 year old female who presents to the [facility] emergency department with a history of reportedly feeling unwell since Sunday. She reports that she has had nausea and vomiting since Sunday. She has vomited in total 3 times on 12/17. She denies having bilious vomit. She denies having any hematemesis. She reports that she has been moving her bowels daily, however she does have a problem with constipation and is using a stool softener. She denies having any blood in her stool or black or tarry stools. She reports that she is planning to have a D&C soon done by Dr. Samano. She is unsure why. The patient reports that since August she has also been self cathing, however she is unsure why she is unable to completely evacuate her bladder. She reports that she was told that she would need a Sheikh catheter, however she refused and instead is self cathing. The patient reports having generalized abdominal pain that she has difficulty describing the character of or any other details regarding the abdominal pain. Unfortunately, the patient is a poor historian. The patient reports that her primary care physician is Dr. Hernandez. She has not seen Dr. Hernandez since August. She reports that she does have home health that comes out. She reports that in August her primary care physician discontinued her diabetic medication for unknown reason. Ambulance services brought the patient in the reports that her blood sugar was critically high prior to arrival. The patient was started on normal saline IV fluids and transported to this facility. She denies having any known recent fevers, cough or congestion, neck pain, chest pain, shortness of breath, or neurologic symptoms. The patient incidentally also reports that she was diagnosed with a urinary tract infection on November 28, however Dr. Hernandez has not started her on antibiotic yet. Patient stated that she was brought to the ER by [facility] due to progressive generalized weakness. She was noted to have a fingerstick glucose in the 1000 range and blood glucose in the ER was in the 700s with a metabolic acidosis. Patient was started on DKA protocol by ER physician. She was noted to have a leukocytosis and cloudy urine with suspicion of a UTI hence after obtaining cultures she was initiated on IV Zosyn and received a dose of vancomycin in the ER. When I evaluated the patient she was resting in bed comfortably and denies any chest pain shortness of breath nausea, palpitations. 12/19: Over the night her anion gap closed and she was transitioned to subcutaneous insulin despite low bicarb. T-max of 98.6. I/O 4553/1650. She is awake, alert, complains of back pain, denies any nausea or vomiting, chest pain, palpitations. She states that she had a bowel movement over the night. Objective Vital Signs Date Time Temp Pulse Resp B/P (MAP) Pulse Ox O2 Delivery O2 Flow Rate FiO2 12/19/17 08:30 97 12/19/17 04:00 98.2 100 28 128/72 (90) 12/18/17 00:00 Room Air Intake and Output 12/19/17 12/19/17 12/20/17 08:00 16:00 00:00 Intake Total 1668 ml Output Total 900 ml Balance 768 ml Result Diagram: 12/19/17 0337 12/19/17 0337 Other Results Microbiology Date/Time Source Procedure Growth Status 12/17/17 21:14 Blood Peripheral Aerobic Blood Culture - Preliminary Klebsiella Oxytoca Resulted 12/17/17 21:14 Anaerobic Blood Culture - Preliminary Gram Negative Jin Resulted 12/17/17 21:14 Blood Peripheral Aerobic Blood Culture - Preliminary NO GROWTH IN 1 DAY Resulted 12/17/17 21:14 Anaerobic Blood Culture - Preliminary Gram Negative Jin Resulted 12/17/17 23:40 Urine Clean Catch Urine Culture - Preliminary Gram Negative Jin Resulted Imaging Laboratory Tests Test 12/17/17 21:10 12/17/17 21:13 12/17/17 21:14 12/17/17 23:40 Venous Blood pH 7.11 Lactic Acid Level 1.6 mmol/L White Blood Count 18.6 TH/MM3 Red Blood Count 3.63 MIL/MM3 Hemoglobin 7.7 GM/DL Hematocrit 25.9 % Mean Corpuscular Volume 71.3 FL Mean Corpuscular Hemoglobin 21.3 PG Mean Corpuscular Hemoglobin Concent 29.9 % Red Cell Distribution Width 18.0 % Platelet Count 297 TH/MM3 Mean Platelet Volume 8.9 FL Neutrophils (%) (Auto) 90.1 % Lymphocytes (%) (Auto) 3.4 % Monocytes (%) (Auto) 5.7 % Eosinophils (%) (Auto) 0.7 % Basophils (%) (Auto) 0.1 % Neutrophils # (Auto) 16.8 TH/MM3 Lymphocytes # (Auto) 0.6 TH/MM3 Monocytes # (Auto) 1.1 TH/MM3 Eosinophils # (Auto) 0.1 TH/MM3 Basophils # (Auto) 0.0 TH/MM3 CBC Comment AUTO DIFF Differential Total Cells Counted 100 Neutrophils % (Manual) 79 % Band Neutrophils % 19 % Monocytes % 2 % Neutrophils # (Manual) 18.2 TH/MM3 Differential Comment FINAL DIFF MANUAL Toxic Granulation 1+ Toxic Vacuolation PRESENT Platelet Estimate NORMAL Platelet Morphology Comment NORMAL Prothrombin Time 10.0 SEC Prothromb Time International Ratio 1.0 RATIO Activated Partial Thromboplast Time 25.9 SEC Blood Urea Nitrogen 73 MG/DL Creatinine 5.57 MG/DL Random Glucose 734 MG/DL Total Protein 6.9 GM/DL Albumin 2.0 GM/DL Calcium Level 9.3 MG/DL Magnesium Level 2.6 MG/DL Alkaline Phosphatase 295 U/L Aspartate Amino Transf (AST/SGOT) 15 U/L Alanine Aminotransferase (ALT/SGPT) 20 U/L Total Bilirubin 1.1 MG/DL Sodium Level 118 MEQ/L Potassium Level 4.6 MEQ/L Chloride Level 88 MEQ/L Carbon Dioxide Level 11.2 MEQ/L Anion Gap 19 MEQ/L Estimat Glomerular Filtration Rate 10 ML/MIN Total Creatine Kinase 36 U/L Troponin I LESS THAN 0.02 NG/ML C-Reactive Protein 36.00 MG/DL Lipase 83 U/L B-Hydroxybutyrate 3.63 MMOL/L Urine Color YELLOW Urine Turbidity CLOUDY Urine pH 5.0 Urine Specific [place] 1.008 Urine Protein 30 mg/dL Urine Glucose (UA) >=500 mg/dL Urine Ketones TRACE mg/dL Urine Occult Blood MOD Urine Nitrite NEG Urine Bilirubin NEG Urine Urobilinogen LESS THAN 2 mg/dL Urine Leukocyte Esterase LARGE Urine RBC 7 /hpf Urine WBC 111 /hpf Urine Squamous Epithelial Cells 1 /hpf Urine Amorphous Sediment RARE Urine Bacteria MANY /hpf Urine Mucus FEW /lpf Microscopic Urinalysis Comment CULTURE INDICATED Objective Remarks General: Middle-aged lady, awake, alert, in no distress HEENT: Pupils are equal and reactive, sclerae are anicteric. Moist mucous membranes, no thrush Neck: Supple, no rigidity appreciated. Neck veins are nondistended Chest/pulmonary: Clear bilaterally, good air entry, no wheezes Cardiovascular: S1-S2 regular no gallop or murmur GI/abdomen: Soft, some vague tenderness in mid abdomen, bowel sounds present, no guarding Extremities: Warm bilaterally, no edema. Peripheral pulses are present A/P Assessment and Plan 1. Sepsis secondary to gram-negative UTI, slowly improving 2. Klebsiella oxytoca septicemia -source likely urinary 3. DKA -blood glucose improved, but hydroxybutyrate normalized 4. Anion gap metabolic acidosis -likely related to renal failure, lactic acid normal, beta hydroxybutyrate normal 5. Severe anemia -required 1 unit of PRBC transfusion 6. SANDY on CKD -creatinine remains elevated, urine output is adequate 7. Pelvic mass 8. Hypertension 9. Hyperlipidemia 10. Anxiety disorder 11. Pseudohyponatremia -corrected sodium around 130 on admission 1. Continue NPH and sliding scale 2. Advance diet 3. Continue Zosyn renally adjusted 4. Repeat blood cultures 2 today 5. Echocardiogram 6. Appreciate consultants help 7. Defer to nephrology the addition of bicarb 8. Minimize chloride containing fluids Will transition care to hospitalist service. No family present at bedside. Shaheen Brantley MD Dec 19, 2017 10:43
--- NOTE | 2017-12-19 11:33 | HHI.NPPN ---
Subjective General Problems: Anemia Renal Failure: Chronic, Acute Interval History She is awake. Had mulitple BMs overnight. Minimal improvement in renal function. She is non oliguric with Sheikh catheter. Evaluated by PLANNER. (Amber Mckinney) Review of Systems Gastrointestinal Gastrointestinal: Diarrhea (Amber Mckinney) Musculoskeletal MS: Pain/Stiffness (Amber Mckinney) Objective Data Data Vital Signs Date Time Temp Pulse Resp B/P (MAP) Pulse Ox O2 Delivery O2 Flow Rate FiO2 12/19/17 08:30 97 12/19/17 04:00 98.2 100 28 128/72 (90) 100 12/19/17 00:00 98.6 99 33 107/59 (75) 98 12/18/17 20:00 98.0 107 36 107/55 (72) 98 12/18/17 18:00 119 12/18/17 16:00 104 12/18/17 16:00 98.1 104 17 108/59 (75) 97 12/18/17 14:00 101 12/18/17 12:00 109 12/18/17 12:00 98.2 109 24 113/59 (77) 99 (Amber Mckinney) -: 12/19/17 0337 12/19/17 0337 Imaging Last 72 hours Impressions Chest X-Ray 12/18/17 0600 Signed Impressions: CONCLUSION: Negative examination. Abdomen/Pelvis CT 12/17/172206 Signed Impressions: CONCLUSION: 1. Markedly distended bladder with mild to moderate bilateral hydronephrosis. 2. Rectal impaction measuring up to 8.5 cm in diameter. 3. Lobulated mass in left adnexal region extending into left lower quadrant si milar in appearance to August and October 2017. Cannot exclude a slow growing ovaria n neoplasm. Chest X-Ray 12/17/172024 Signed Impressions: CONCLUSION: Negative examination. Tubes & Lines: Sheikh (Amber Mckinney) Physical Exam General Appearance: Well Developed, Well Nourished, Comfortable (Amber Mckinney) Eyes Eye Exam: Pupils Equal, Pupils Reactive (Amber Mckinney) Neck Neck Exam: Neck Supple (Hank,Amber B. TECHNICAL AGRONOMIST) Pulmonary Resp Exam: Clear Bilaterally, Breath Sounds Equal (Amber Mckinney) Cardiology CV Exam: Regular, Normal Sinus Rhythm, Good Perfusion (Amber Mckinney) Gastrointestinal/Abdomen GI Exam: Soft, Positive Bowel Movement, Distended GI Remarks tenderness through entire abdomen (Amber MckinneyP) Musculoskeletal MS Exam: Joints Intact, Normal Tone (Amber MckinneyP) Integumentary Skin Exam: Warm, Dry, Intact (Amber MckinneyP) Extremeties Extremities Exam: No Edema, Pedal Pulses Palpable (Amber Mckinney) Neurologic Neuro Exam: Alert, Awake, Oriented, Speech Clear, Moving All Extremities (Amber Mckinney) Assessment/Plan Discussed Condition With: Patient Assessment Summary: SANDY/Acute Renal Failure, Anemia of CKD, Hypertension Problem List: (1) SANDY (acute kidney injury) ICD Codes: N17.9 - Acute kidney failure, unspecified Status: Acute Plan: Her creatinine was normal in September. Since then she has had multiple episodes of SANDY due to chronic obstruction Her exact baseline is not known, creatinine was 3.37 at time of discharge last admission Resolving DKA with intravascular volume depletion Now has renal hypoperfusion due to sepsis. Minimal improvement in renal function since yesterday. She is non oliguric. Metabolic acidosis is present, start bicarb gtt (SW with 3 amps at 100 cc/hr) Monitor urine output Avoid hypotension Avoid nephrotoxic agents, renally dose appropriate to renal status PO Fluids encouraged when allowed to eat Repeat labs daily She had enema to assist with clearing constipation. Will also need PLANNER surgery to remove mass that is causing hydronephrosis. (2) DKA (diabetic ketoacidoses) ICD Codes: E13.10 - Other specified diabetes mellitus with ketoacidosis without coma Status: Acute Plan: Resolving Anion gap closed, now elevated due to renal failure Off insulin gtt, maintain glucose 140-180mg/dL while hospitalized (3) UTI (urinary tract infection) ICD Codes: N39.0 - Urinary tract infection, site not specified Status: Acute Plan: GN rods, culture in progress On Zosyn Lactic acid improved, she is afebrile with worsening leukocytosis (4) Adnexal mass ICD Codes: N94.9 - Unspecified condition associated with female genital organs and menstrual cycle Plan: PLANNER evaluated, no plans for surgery this admission (5) Bilateral hydronephrosis ICD Codes: N13.30 - Unspecified hydronephrosis Plan: Due to adnexal mass and fecal impaction Urology following Given enemas (6) Anemia ICD Codes: D64.9 - Anemia, unspecified Plan: Microcytic hypochromic anemia Stop IV Venofer given sepsis, start oral iron Transfused one unit yesterday. (7) Fecal impaction ICD Codes: K56.41 - Fecal impaction Status: Resolved Plan: Enemas given, successful BM (Amber Mckinney) Plan patient was seen and examined. Agree with above assessment and plan. Concerned about minimal improvement in renal function. IVF changed. Monitor. (Bruce Kang MD) Problem Qualifiers (1) DKA (diabetic ketoacidoses): Qualified Codes: E11.10 - Type 2 diabetes mellitus with ketoacidosis without coma (2) UTI (urinary tract infection): Qualified Codes: T83.511A - Infection and inflammatory reaction due to indwelling urethral catheter, initial encounter; N39.0 - Urinary tract infection , site not specified Amber Mckinney Dec 19, 2017 11:33 Bruce Kang MD Dec 19, 2017 17:53
--- NOTE | 2017-12-19 13:58 | EKG ---
Date Performed: 12/18/2017 Time Performed: 13:27:33 PTAGE: 57 years EKG: SINUS TACHYCARDIA WITH FREQUENT SUPRAVENTRICULAR PREMATURE COMPLEXES LOW QRS VOLTAGE IN PRE CORDIAL LEADS ABNORMAL RHYTHM ECG PREVIOUS TRACING : 12/18/2017 08.53 DOCTOR: Manolo Ley Interpretating Date/Time 12/19/2017 13:58:04
[2017-12-19] MEDS: SODIUM BICARBONATE 8.4% INJ 150 MEQ in WATER STERILE FOR INJ 850 ML IV SCH (14:21)
[2017-12-19 21:44] LABS: HEMOGLOBIN A1C 11.3 % (4.3-6.0)
[2017-12-20] VITALS (14 sets, daily range): BP systolic 128–172; BP diastolic 57–68; PULSE 91–104; RESP 15–22; TEMP 97.6–98.5; O2SAT 95–100
[2017-12-20] MEDS: PIPERACIL-TAZO 2.25 GM PREMIX 50 ML IV SCH ×4 (01:20→23:53)
[2017-12-20] MEDS: SODIUM BICARBONATE 8.4% INJ 150 MEQ in WATER STERILE FOR INJ 850 ML IV SCH ×3 (01:20→22:03)
[2017-12-20] MEDS: CHLORHEXIDINE GLUCONATE 2 % 1 PACK (2 CLOTHS) TOP SCH (04:00)
[2017-12-20 04:56] LABS: HEMOGLOBIN 7.5 GM/DL (11.6-15.3); MEAN CELL VOLUME 68.6 FL (80.0-100.0); MEAN CORPUSCULAR HEMOGLOBIN 22.5 PG (27.0-34.0); MEAN CORPUSCULAR HGB CONC 32.8 % (32.0-36.0); MEAN PLATELET VOLUME 7.7 FL (7.0-11.0); PLATELET COUNT 293 TH/MM3 (150-450); RED BLOOD COUNT 3.35 MIL/MM3 (4.00-5.30); RED CELL DISTRIBUTION WIDTH 17.6 % (11.6-17.2); WHITE BLOOD COUNT 17.2 TH/MM3 (4.0-11.0)
[2017-12-20 05:08] LABS: ALBUMIN 1.4 GM/DL (3.4-5.0); AST (GOT) 17 U/L (15-37); BICARBONATE 15.8 MEQ/L (21.0-32.0); BLOOD UREA NITROGEN 69 MG/DL (7-18); CALCIUM 9.2 MG/DL (8.5-10.1); CHLORIDE 106 MEQ/L (98-107); CREATININE 4.71 MG/DL (0.50-1.00); GLOMERULAR FILTRATION RATE 12 ML/MIN (>89); GLUCOSE,RANDOM 104 MG/DL (74-106); MAGNESIUM 2.3 MG/DL (1.5-2.5); SODIUM (NA) 135 MEQ/L (136-145)
[2017-12-20 05:11] LABS: ALKALINE PHOSPHATASE 302 U/L (45-117); ALT (GPT) 18 U/L (10-53); PHOSPHORUS 3.5 MG/DL (2.5-4.9); TOTAL BILIRUBIN ADULT 1.9 MG/DL (0.2-1.0); TOTAL PROTEIN 5.8 GM/DL (6.4-8.2)
[2017-12-20] MEDS: INSULIN ASPART SUPPLEMENTAL SCALE SQ SCH ×4 (08:00→20:45)
[2017-12-20] MEDS: SODIUM CHLORIDE 0.9% FLUSH 10 ML FLUSH IV FLUSH SCH ×2 (08:21→20:44)
[2017-12-20] MEDS: DOCUSATE SODIUM 50 MG/SENNA 8.6 MG TAB PO SCH ×2 (08:21→20:44)
[2017-12-20] MEDS: INSULIN HUMAN NPH 1,000 UNITS/10 ML VIAL SQ SCH ×2 (08:21→16:17)
[2017-12-20] MEDS: oxyCODONE/ACETAMINOPHEN 5 MG/325 MG TAB PO PRN ×2 (08:21→12:25)
[2017-12-20] MEDS: PANTOPRAZOLE SOD 40 MG DELAYED RELEASE TAB PO SCH (08:21)
[2017-12-20] MEDS: VITAMIN B CMPLX/VITC/FOLIC AC CAP PO SCH (08:21)
[2017-12-20] MEDS: MINERAL OIL ENEMA 118 ML BTL RECTAL SCH (08:24)
--- NOTE | 2017-12-20 08:24 | HHI.NPPN ---
Subjective General Problems: Anemia Renal Failure: Chronic, Acute Interval History patient's renal function is stable, no significant improvement however. Non oliguric. Review of Systems General Constitutional: Fatigue Gastrointestinal Gastrointestinal: Diarrhea Musculoskeletal MS: Pain/Stiffness Objective Data Data Vital Signs Date Time Temp Pulse Resp B/P (MAP) Pulse Ox O2 Delivery O2 Flow Rate FiO2 12/20/17 06:00 104 12/20/17 04:00 98.2 101 16 142/67 (92) 99 12/20/17 04:00 101 12/20/17 02:00 94 12/20/17 00:00 97 12/20/17 00:00 98.3 97 15 128/57 (80) 99 12/19/17 23:21 16 12/19/17 22:00 112 12/19/17 20:00 98.2 108 16 169/77 (107) 100 12/19/17 20:00 108 12/19/17 18:00 100 12/19/17 16:00 101 12/19/17 16:00 98.7 101 23 96 12/19/17 14:00 101 12/19/17 12:00 98.2 97 17 126/59 (81) 98 12/19/17 12:00 97 12/19/17 10:00 101 12/19/17 08:30 97 -: 12/20/17 0253 12/20/17 0253 Tubes & Lines: Sheikh Physical Exam General Appearance: Well Developed, Well Nourished, Comfortable Eyes Eye Exam: Pupils Equal, Pupils Reactive Neck Neck Exam: Neck Supple Pulmonary Resp Exam: Clear Bilaterally, Breath Sounds Equal Cardiology CV Exam: Regular, Normal Sinus Rhythm, Good Perfusion Gastrointestinal/Abdomen GI Exam: Soft, Positive Bowel Movement, Distended Musculoskeletal MS Exam: Joints Intact, Normal Tone Integumentary Skin Exam: Warm, Dry, Intact Extremeties Extremities Exam: No Edema, Pedal Pulses Palpable Neurologic Neuro Exam: Alert, Awake, Oriented, Speech Clear, Moving All Extremities Assessment/Plan Discussed Condition With: Patient Assessment Summary: SANDY/Acute Renal Failure, Anemia of CKD, Hypertension Problem List: (1) SANDY (acute kidney injury) ICD Codes: N17.9 - Acute kidney failure, unspecified Status: Acute Plan: Her creatinine was normal in September. Since then she has had multiple episodes of SANDY due to chronic obstruction Her exact baseline is not known, creatinine was 3.37 at time of discharge last admission DKA has resolved. Now has renal hypoperfusion due to sepsis. Minimal improvement in renal function. Metabolic acidosis persists, continue bicarbonate drip. Monitor urine output Avoid hypotension Avoid nephrotoxic agents, renally dose appropriate to renal status PO Fluids encouraged when allowed to eat Repeat labs daily No immediate need for dialysis. Taper off fluids as oral intake improves. (2) DKA (diabetic ketoacidoses) ICD Codes: E13.10 - Other specified diabetes mellitus with ketoacidosis without coma Status: Acute Plan: Improved. 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 Continue iron. (7) Fecal impaction ICD Codes: K56.41 - Fecal impaction Status: Resolved Plan: Enemas given, successful BM Problem Qualifiers (1) DKA (diabetic ketoacidoses): Qualified Codes: E11.10 - Type 2 diabetes mellitus with ketoacidosis without coma (2) UTI (urinary tract infection): Qualified Codes: T83.511A - Infection and inflammatory reaction due to indwelling urethral catheter, initial encounter; N39.0 - Urinary tract infection , site not specified Bruce Kang MD Dec 20, 2017 08:24
[2017-12-20 08:48] LABS: BANDS 8 % (0-6); LYMPHOCYTES 11 % (9-44); MONOCYTES 6 % (0-8); MYELOCYTES 1 % (0-0); NEUTROPHIL # MANUAL DIFF 14.1 TH/MM3 (1.8-7.7); POLYS (SEG NEUTROPHILS) 73 % (16-70)
[2017-12-20 08:49] LABS: TOXIC GRANULATION 1+ (NORMAL)
[2017-12-20 08:50] LABS: OVALOCYTES 1+ (NORMAL)
--- NOTE | 2017-12-20 14:39 | PD.ID.CON ---
History of Present Illness Service ID Consult Requested By Reason for Consult Evaluation and Mment of Sepsis, Gram negative bacteremia, GNR UTI. Primary Care Physician Unknown Diagnoses: History of Present Illness is a 57 y/o CF known to me from prior admission. Patient was previously hospitalized for E. coli ESBL bacteremia as well as UTI. At that time patient was diagnosed to have a uterine adnexal mass and urology as well as [employer] oncology were involved. Patient underwent treatment for ESBL E. coli bacteremia for a total of 2 weeks with IV ertapenem as outpatient. Subsequently patient has been following up with urology and she tells me that there was a plan for a surgical procedure but it is postponed. Upon review of Dr. Samano notes it appears that patient needed cardiology clearance for the procedure under anesthesia. Patient was found to have EKG said changes suggestive of ischemia and a cardiology evaluation revealed that she was at moderate risk for the procedure under anesthesia. Despite that the plan was to proceed with the procedure on January 08 but patient in the interim felt bad and is now admitted to the hospital. Patient describes that for the last several days she has been experiencing extreme weakness pain all over her body. Her boyfriend who is in the room reports that she has been having extremely severe pain upon minimal touch especially in her ankles thought to be secondary to her neuropathy. She lost her ability to stand because of this weakness and pain and also reported abdominal distention and discomfort and due to an overall feeling of unwellness she presented to the emergency department. She reports that her blood sugar was greater than 1000 by EMS fingerstick. She reports compliance with her medications but from past admission experience with her I am not sure if she is compliant. Patient was also seen by urology during her last admission and noted to have neurogenic bladder in addition to a component of obstipation from the uterine mass related urinary problems. Patient denies any vaginal spotting or any blood-tinged discharge in the interim. She does report obstipation and periods of constipation versus fairly severe despite taking a stool softener. Sepsis workup was initiated blood cultures are now positive for Klebsiella oxytoca as well as urine cultures are positive for Klebsiella oxytoca. Patient has been evaluated by urology and it is their recommendation that patient had a Sheikh catheterization throughout her admission and possibly need for intermittent self-catheterization on discharge. Patient has also been evaluated by [employer] oncology and does not appear that they have any immediate plans for surgery. A CAT scan of the abdomen showed a lobulated mass in the left adnexal region the left lower quadrant similar to her prior imaging in August as well as October 2017. She was noted to have a markedly distended bladder as well as rectal impaction and additionally bilateral mild to moderate hydronephrosis. Patient denies any fevers chills or night sweats prior to admission GI symptoms as noted above. No [employer]GER related discharge. [employer]GER history as noted above. Denies any weight loss. Appetite okay. Infectious disease consulted for evaluation and management of sepsis, gram- negative bacteremia as well as gram-negative navya UTI. Review of Systems ROS Limitations: Poor Historian Constitutional: DENIES: Diaphoretic episodes, Fatigue, Fever, Weight gain, Weight loss, Chills, Dizziness, Change in appetite, Night Sweats Endocrine: DENIES: Abnorml menstrual pattern, Heat/cold intolerance, Polydipsia , Polyuria, Polyphagia Eyes: DENIES: Blurred vision, Diplopia, Eye inflammation, Eye pain, Vision loss , Photosensitivity, Double Vision Ears, nose, mouth, throat: DENIES: Tinnitus, Hearing loss, Vertigo, Nasal discharge, Oral lesions, Throat pain, Hoarseness, Ear Pain, Running Nose, Epistaxis, Sinus Pain, Toothache, Odynophagia Respiratory: DENIES: Apneas, Cough, Snoring, Wheezing, Hemoptysis, Sputum production, Shortness of breath Cardiovascular: DENIES: Chest pain, Palpitations, Syncope, Dyspnea on Exertion , PND, Lower Extremity Edema, Orthopnea, Claudication Gastrointestinal: COMPLAINS OF: Abdominal pain, Constipation, Nausea, Vomiting , DENIES: Black stools, Bloody stools, Diarrhea, Difficulty Swallowing, Anorexia Genitourinary: DENIES: Abnormal vaginal bleeding, Dysmenorrhea, Dyspareunia, Sexual dysfunction, Urinary frequency, Urinary incontinence, Urgency, Hematuria , Dysuria, Nocturia, Vaginal discharge Musculoskeletal: DENIES: Joint pain, Muscle aches, Stiffness, Joint Swelling, Back pain, Neck pain Integumentary: DENIES: Abnormal pigmentation, Pruritus, Rash, Nail changes, Breast masses, Breast skin changes, Nipple discharge Hematologic/lymphatic: DENIES: Bruising, Lymphadenopathy Immunologic/allergic: DENIES: Eczema, Urticaria Neurologic: COMPLAINS OF: Paresthesias, DENIES: Abnormal gait, Headache, Localized weakness, Seizures, Speech Problems, Tremor, Poor Balance Psychiatric: DENIES: Anxiety, Confusion, Mood changes, Depression, Hallucinations, Agitation, Suicidal Ideation, Homicidal Ideation, Delusions Except as stated in HPI: all other systems reviewed are Neg Past Family Social History Allergies: Coded Allergies: No Known Allergies (Verified Allergy, Unknown, 10/30/17) Past Medical History Type 2 diabetes, pelvic mass (or masses), neurogenic bladder, obstipation, anxiety, hypertension, elevated cholesterol, gastroesophageal reflux, peripheral neuropathy. Past Surgical History Knee surgery. She has had a prior colonoscopy. Reported Medications Reported Meds & Active Scripts Active Active Ordered Medications Current Medications Medications (Trade) Dose Ordered Sig/Elroy Route Start Time Stop Time Status Last Admin (NS Flush) 2 ml UNSCH PRN IV FLUSH 12/17/17 23:15 (NS Flush) 2 ml BID IV FLUSH 12/18/17 09:00 12/20/17 08:21 (Tylenol) 650 mg Q6H PRN PO 12/17/17 23:15 (Protonix) 40 mg DAILY PO 12/18/17 09:00 12/20/17 08:21 (Zofran Odt) 4 mg Q6H PRN PO 12/17/17 23:45 12/19/17 05:46 (Duoneb Neb) 1 ampule Q2HR NEB PRN INH 12/17/17 23:15 ([facility] Nursing Information) 1 Q361D XX 12/17/17 23:15 12/18/17 02:57 (Chlorhexidine 2% Cloth) 3 pack Taper DAILY@04 TOP 12/18/17 04:00 12/14/18 03:59 12/20/17 04:00 (Chlorhexidine 2% Cloth) 3 pack UNSCH PRN TOP 12/17/17 23:15 (Debi-Colace) 1 tab BID PO 12/18/17 09:00 12/20/17 08:21 (Milk Of Magnesia Liq) 30 ml Q12H PRN PO 12/17/17 23:15 (Senokot) 17.2 mg Q12H PRN PO 12/17/17 23:15 (Dulcolax Supp) 10 mg DAILY PRN RECTAL 12/17/17 23:15 (Lactulose Liq) 30 ml DAILY PRN PO 12/17/17 23:15 Piperacillin Sod/ Tazobactam Sod 50 ml @ 100 mls/hr Q8H IV 12/18/17 08:00 12/20/17 08:22 (Nephrocaps) 1 cap DAILY PO 12/18/17 09:00 12/20/17 08:21 (Percocet 5-325 Mg) 1 tab Q4H PRN PO 12/18/17 02:30 12/20/17 12:25 (Fleet Mineral Oil Enema) 118 ml DAILY RECTAL 12/18/17 11:30 (D50w (Vial) Inj) 50 ml UNSCH PRN IV PUSH 12/19/17 02:15 (NovoLIN N INJ) 15 units BID@08,17 SQ 12/19/17 08:00 12/20/17 08:21 (NovoLOG SUPPLEMENTAL SCALE) 1 ACHS SQ 12/19/17 08:00 12/20/17 12:00 (Glucagon Inj) 1 mg UNSCH PRN IM/SQ 12/19/17 02:30 Sodium Bicarbonate 150 meq/Sterile Water 1,000 ml @ 100 mls/hr Q10H IV 12/19/17 10:00 12/20/17 12:25 (Cymbalta Dr) 30 mg DAILY PO 12/20/17 15:00 Family History reviewed and NC to current ID problems. Social History Has had children in the past. Currently lives with her boyfriend. Tobacco abuse but denies any alcohol use. Physical Exam Vital Signs Vital Signs Date Time Temp Pulse Resp B/P (MAP) Pulse Ox O2 Delivery O2 Flow Rate FiO2 12/20/17 12:00 95 12/20/17 12:00 97.6 95 16 146/64 (91) 98 12/20/17 10:17 137/60 (85) 12/20/17 10:00 99 12/20/17 08:57 100 21 12/20/17 08:00 103 12/20/17 08:00 98.1 103 16 172/68 (102) 99 12/20/17 06:00 104 12/20/17 04:00 98.2 101 16 142/67 (92) 99 12/20/17 04:00 101 12/20/17 02:00 94 12/20/17 00:00 97 12/20/17 00:00 98.3 97 15 128/57 (80) 99 6/20/18 23:21 16 12/19/17 22:00 112 12/19/17 20:00 98.2 108 16 169/77 (107) 100 12/19/17 20:00 108 12/19/17 18:00 100 12/19/17 16:00 101 12/19/17 16:00 98.7 101 23 96 Physical Exam GENERAL: This is a well-nourished, well-developed patient, in no apparent distress. SKIN: No rashes, ecchymoses or lesions. Cool and dry. HEAD: Atraumatic. Normocephalic. No temporal or scalp tenderness. EYES: Pupils equal round and reactive. Extraocular motions intact. No scleral icterus. No injection or drainage. ENT: Nose without bleeding, purulent drainage or septal hematoma. Throat without erythema, tonsillar hypertrophy or exudate. Uvula midline. Airway patent. NECK: Trachea midline. Supple, nontender, no meningeal signs. CARDIOVASCULAR: Heart sounds audible. RESPIRATORY: Clear to auscultation. Breath sounds equal bilaterally. No wheezes , rales, or rhonchi. GASTROINTESTINAL: Abdomen soft, diffuse tenderness more pronounced in the right lower quadrant. MUSCULOSKELETAL: Extremities without clubbing, cyanosis, or edema. No joint tenderness, effusion, or edema noted. No calf tenderness. Negative Homans sign bilaterally. NEUROLOGICAL: Awake and alert. Nonfocal exam. Psych cooperative IV line sites with no evidence of infection. Laboratory Laboratory Tests Test 12/20/17 02:53 White Blood Count 17.2 Red Blood Count 3.35 Hemoglobin 7.5 Hematocrit 23.0 Mean Corpuscular Volume 68.6 Mean Corpuscular Hemoglobin 22.5 Mean Corpuscular Hemoglobin Concent 32.8 Red Cell Distribution Width 17.6 Platelet Count 293 Mean Platelet Volume 7.7 CBC Comment AUTO DIFF Differential Total Cells Counted 100 Neutrophils % (Manual) 73 Band Neutrophils % 8 Lymphocytes % 11 Monocytes % 6 Eosinophils % 1 Neutrophils # (Manual) 14.1 Myelocytes 1 Differential Comment FINAL DIFF MANUAL Toxic Granulation 1+ Platelet Estimate NORMAL Platelet Morphology Comment NORMAL Ovalocytes 1+ Blood Urea Nitrogen 69 Creatinine 4.71 Random Glucose 104 Total Protein 5.8 Albumin 1.4 Calcium Level 9.2 Phosphorus Level 3.5 Magnesium Level 2.3 Alkaline Phosphatase 302 Aspartate Amino Transf (AST/SGOT) 17 Alanine Aminotransferase (ALT/SGPT) 18 Total Bilirubin 1.9 Sodium Level 135 Potassium Level 4.5 Chloride Level 106 Carbon Dioxide Level 15.8 Anion Gap 13 Estimat Glomerular Filtration Rate 12 Date/Time Source Procedure Growth Status 12/17/17 21:14 Blood Peripheral Aerobic Blood Culture - Final Klebsiella Oxytoca Complete 12/17/17 21:14 Anaerobic Blood Culture - Final Klebsiella Oxytoca Complete 12/17/17 23:40 Urine Clean Catch Urine Culture - Final Klebsiella Oxytoca Complete Result Diagram: 12/20/17 0253 12/20/17 0253 Imaging Last Impressions Chest X-Ray 12/18/17 0600 Signed Impressions: CONCLUSION: Negative examination. Abdomen/Pelvis CT 12/17/17 2207 Signed Impressions: CONCLUSION: 1. Markedly distended bladder with mild to moderate bilateral hydronephrosis. 2. Rectal impaction measuring up to 8.5 cm in diameter. 3. Lobulated mass in left adnexal region extending into left lower quadrant si milar in appearance to August and October 2017. Cannot exclude a slow growing ovaria n neoplasm. Assessment and Plan Assessment and Plan Sepsis present on admission Klebsiella oxytoca bacteremia Klebsiella oxytoca UTI Chronically distended is chronically thick-walled urinary bladder possible chronic cystitis Obstipation with compression of possible re-the rectum over the bladder. 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 Evaluation ongoing. Recs: Continue Zosyn IV. Repeat blood cultures x 2 today If persistent bacteremia will need endovascular workup. Reviewed Logging Equipment Operator, Urology notes. Follow cultures Follow clinically. nakita RN, patient and boyfriend in room. Vika Pearson MD Dec 20, 2017 14:39
--- NOTE | 2017-12-20 14:43 | PD.PSY.CON ---
Provisional Diagnosis Admission Date Dec 17, 2017 at 23:09 [place] I. Adjustment disorder with depressed mood and anxiety, history of depression, [place] II. Deferred [place] III. Diabetes, hypertension History of Present Illness Service Psychiatry Consult Requested By Critical care Reason for Consult Depression Primary Care Physician Unknown HPI The patient is a 57 year-old -Greek woman, domiciled with a friend in [place], single, supported by Social Security, with psychiatric history of depression, anxiety, no previous psychiatric hospitalizations, no suicide attempts, the patient was in amitriptyline for a long time, but was discontinued by primary care physician months ago, medical history hypertension and diabetes, who presents to the [facility] emergency department with a history of reportedly feeling unwell since Sunday. Patient stated that she was brought to the ER by [facility] due to progressive generalized weakness. She was noted to have a fingerstick glucose in the 1000 range and blood glucose in the ER was in the 700s with a metabolic acidosis. Patient was started on DKA protocol by ER physician. She was noted to have a leukocytosis and cloudy urine with suspicion of a UTI hence after obtaining cultures she was initiated on IV Zosyn and received a dose of vancomycin in the ER. Consulted to psychiatry to address anxiety and depression. EMR reviewed. On psychiatric evaluation today the patient is calm, cooperative, reports feeling much better. She keeps complaining of back pain. Reports to be in a okay mood the moment, , but at the same time she said "I have been depressed lately". He reports that she was quite stable of her depression and amitriptyline for several years , but her primary doctor discontinued this medication for reasons that she does not know. The patient reports that she has been feeling tearful, with moments of sadness, difficulty sleeping at night, feeling hopeless, helpless, anhedonic , but she denies suicidal enemas ideation, she denies visual and auditory hallucinations. The patient reports that her depression is mostly related with her medical problems decompensation and psychosocial stressors. She reports that she does not want to , because she loves life and she enjoys life. The patient is fully oriented 3, no attention deficit, no fluctuation of consciousness present. Review of Systems Constitutional: DENIES: Diaphoretic episodes, Fatigue, Fever, Weight gain, Weight loss, Chills, Dizziness, Change in appetite, Night Sweats Endocrine: DENIES: Abnorml menstrual pattern, Heat/cold intolerance, Polydipsia , Polyuria, Polyphagia Eyes: DENIES: Blurred vision, Diplopia, Eye inflammation, Eye pain, Vision loss , Photosensitivity, Double Vision Ears, nose, mouth, throat: DENIES: Tinnitus, Hearing loss, Vertigo, Nasal discharge, Oral lesions, Throat pain, Hoarseness, Ear Pain, Running Nose, Epistaxis, Sinus Pain, Toothache, Odynophagia Respiratory: DENIES: Apneas, Cough, Snoring, Wheezing, Hemoptysis, Sputum production, Shortness of breath Cardiovascular: DENIES: Chest pain, Palpitations, Syncope, Dyspnea on Exertion , PND, Lower Extremity Edema, Orthopnea, Claudication Gastrointestinal: DENIES: Abdominal pain, Black stools, Bloody stools, Constipation, Diarrhea, Nausea, Vomiting, Difficulty Swallowing, Anorexia Genitourinary: DENIES: Abnormal vaginal bleeding, Dysmenorrhea, Dyspareunia, Sexual dysfunction, Urinary frequency, Urinary incontinence, Urgency, Hematuria , Dysuria, Nocturia, Vaginal discharge Musculoskeletal: COMPLAINS OF: Back pain, Neck pain, DENIES: Joint pain, Muscle aches, Stiffness, Joint Swelling Integumentary: DENIES: Abnormal pigmentation, Pruritus, Rash, Nail changes, Breast masses, Breast skin changes, Nipple discharge Hematologic/lymphatic: DENIES: Bruising, Lymphadenopathy Immunologic/allergic: DENIES: Eczema, Urticaria Neurologic: DENIES: Abnormal gait, Headache, Localized weakness, Paresthesias, Seizures, Speech Problems, Tremor, Poor Balance Psychiatric: COMPLAINS OF: Depression, DENIES: Anxiety, Confusion, Mood changes , Hallucinations, Agitation, Suicidal Ideation, Homicidal Ideation, Delusions Past Family Social History Coded Allergies: No Known Allergies (Verified Allergy, Unknown, 10/30/17) Discontinued Scripts Sennosides-Docusate Sodium (Gnp Senna Plus 8.6-50 mg) 8.6 Mg-50 Mg Tab, 1 TAB PO BID, #60 TAB Prov:Mely Pitts MD R1 11/01/17 Clonidine (Catapres) 0.1 Mg Tab, 0.1 MG PO Q12HR, #60 TAB 1 Refill Prov:Mely Pitts MD R1 11/01/17 Current Medications Medications (Trade) Dose Ordered Sig/Elroy Route Start Time Stop Time Status Last Admin (NS Flush) 2 ml UNSCH PRN IV FLUSH 12/17/17 23:15 (NS Flush) 2 ml BID IV FLUSH 12/18/17 09:00 12/20/17 08:21 (Tylenol) 650 mg Q6H PRN PO 12/17/17 23:15 (Protonix) 40 mg DAILY PO 12/18/17 09:00 12/20/17 08:21 (Zofran Odt) 4 mg Q6H PRN PO 12/17/17 23:45 12/19/17 05:46 (Duoneb Neb) 1 ampule Q2HR NEB PRN INH 12/17/17 23:15 ([facility] Nursing Information) 1 Q361D XX 12/17/17 23:15 12/18/17 02:57 (Chlorhexidine 2% Cloth) 3 pack Taper DAILY@04 TOP 12/18/17 04:00 12/14/18 03:59 12/20/17 04:00 (Chlorhexidine 2% Cloth) 3 pack UNSCH PRN TOP 12/17/17 23:15 (Debi-Colace) 1 tab BID PO 12/18/17 09:00 12/20/17 08:21 (Milk Of Magnesia Liq) 30 ml Q12H PRN PO 12/17/17 23:15 (Senokot) 17.2 mg Q12H PRN PO 12/17/17 23:15 (Dulcolax Supp) 10 mg DAILY PRN RECTAL 12/17/17 23:15 (Lactulose Liq) 30 ml DAILY PRN PO 12/17/17 23:15 Piperacillin Sod/ Tazobactam Sod 50 ml @ 100 mls/hr Q8H IV 12/18/17 08:00 12/20/17 08:22 (Nephrocaps) 1 cap DAILY PO 12/18/17 09:00 12/20/17 08:21 (Percocet 5-325 Mg) 1 tab Q4H PRN PO 12/18/17 02:30 12/20/17 12:25 (Fleet Mineral Oil Enema) 118 ml DAILY RECTAL 12/18/17 11:30 (D50w (Vial) Inj) 50 ml UNSCH PRN IV PUSH 12/19/17 02:15 (NovoLIN N INJ) 15 units BID@08,17 SQ 12/19/17 08:00 12/20/17 08:21 (NovoLOG SUPPLEMENTAL SCALE) 1 ACHS SQ 12/19/17 08:00 12/20/17 12:00 (Glucagon Inj) 1 mg UNSCH PRN IM/SQ 12/19/17 02:30 Sodium Bicarbonate 150 meq/Sterile Water 1,000 ml @ 100 mls/hr Q10H IV 12/19/17 10:00 12/20/17 12:25 (Cymbalta Dr) 30 mg DAILY PO 12/20/17 14:45 UNV Family Psych History No family psychiatric history Social History The patient was born and raised in [place], she lives in [place] with her friend , she is single, has 1 son 4 years old, supported by Social Security, her highest level of education is 10th grade Patient's Strengths (min. 2) Verbal communication Physical Exam No tremors, no EPS, no psychomotor agitation retardation, no withdrawal symptoms , Vital Signs Vital Signs Date Time Temp Pulse Resp B/P (MAP) Pulse Ox O2 Delivery O2 Flow Rate FiO2 12/20/17 12:00 95 12/20/17 12:00 97.6 16 146/64 (91) 98 12/20/17 08:57 21 12/18/17 00:00 Room Air I/O 12/20/17 12/20/17 12/21/17 08:00 16:00 00:00 Intake Total 120 ml Output Total 1800 ml Balance -1680 ml Lab Results Test 12/20/17 02:53 White Blood Count 17.2 TH/MM3 Red Blood Count 3.35 MIL/MM3 Hemoglobin 7.5 GM/DL Hematocrit 23.0 % Mean Corpuscular Volume 68.6 FL Mean Corpuscular Hemoglobin 22.5 PG Mean Corpuscular Hemoglobin Concent 32.8 % Red Cell Distribution Width 17.6 % Platelet Count 293 TH/MM3 Mean Platelet Volume 7.7 FL CBC Comment AUTO DIFF Differential Total Cells Counted 100 Neutrophils % (Manual) 73 % Band Neutrophils % 8 % Lymphocytes % 11 % Monocytes % 6 % Eosinophils % 1 % Neutrophils # (Manual) 14.1 TH/MM3 Myelocytes 1 % Differential Comment FINAL DIFF MANUAL Toxic Granulation 1+ Platelet Estimate NORMAL Platelet Morphology Comment NORMAL Ovalocytes 1+ Blood Urea Nitrogen 69 MG/DL Creatinine 4.71 MG/DL Random Glucose 104 MG/DL Total Protein 5.8 GM/DL Albumin 1.4 GM/DL Calcium Level 9.2 MG/DL Phosphorus Level 3.5 MG/DL Magnesium Level 2.3 MG/DL Alkaline Phosphatase 302 U/L Aspartate Amino Transf (AST/SGOT) 17 U/L Alanine Aminotransferase (ALT/SGPT) 18 U/L Total Bilirubin 1.9 MG/DL Sodium Level 135 MEQ/L Potassium Level 4.5 MEQ/L Chloride Level 106 MEQ/L Carbon Dioxide Level 15.8 MEQ/L Anion Gap 13 MEQ/L Estimat Glomerular Filtration Rate 12 ML/MIN Date/Time Source Procedure Growth Status 12/17/17 21:14 Blood Peripheral Aerobic Blood Culture - Final Klebsiella Oxytoca Complete 12/17/17 21:14 Anaerobic Blood Culture - Final Klebsiella Oxytoca Complete 12/17/17 23:40 Urine Clean Catch Urine Culture - Final Klebsiella Oxytoca Complete Mental Status Examination Appearance: Appropriate Consciousness: Alert Orientation: x4 Motor Activity: Normal gait Speech: Unremarkable Language: Adequate Fund of Knowledge: Adequate Attention and Concentration: Adequate Memory: Unremarkable Mood: Appropriate Affect: Appropriate Thought Process & Associations: Intact Thought Content: Appropriate Hallucination Type: None Delusion Type: None Suicidal Ideation: No Suicidal Plan: No Suicidal Intention: No Homicidal Ideation: No Homicidal Plan: No Homicidal Intention: No Insight: Adequate Judgment: Adequate Assessment & Plan Problem List: (1) Adjustment disorder with mixed anxiety and depressed mood ICD Codes: F43.23 - Adjustment disorder with mixed anxiety and depressed mood Assessment & Plan: On psychiatric evaluation today the patient presents calm, cooperative, reports recurrent symptomatology of depression since she was discontinue of amitriptyline by her primary care physician. She reports feeling depressed, having moments of tears, desperation, difficulty sleeping at night, but she denies hopelessness, she denies helplessness, denies worthlessness, she denies suicidal enemas ideation, she denies visual and auditory hallucinations. Since the patient also has history of neuropathic pain , I will start Cymbalta 30 mg daily for depression and pain. Will avoid amitriptyline due to its anticholinergic side effects. Brief supportive psychotherapy, psychoeducation provided. No admission indicated at this moment. I will follow-up Assessment & Plan Estimated LOS: Calixto Edward MD Dec 20, 2017 14:43
[2017-12-20] MEDS: DULoxetine HCl DR 30 MG CAP PO SCH (15:00)
--- NOTE | 2017-12-20 17:57 | HHI.PR ---
Subjective Remarks The patient is a 57 year old female who presents to the [facility] emergency department with a history of reportedly feeling unwell since Sunday. She reports that she has had nausea and vomiting since Sunday. She has vomited in total 3 times on 12/17. She denies having bilious vomit. She denies having any hematemesis. She reports that she has been moving her bowels daily, however she does have a problem with constipation and is using a stool softener. She denies having any blood in her stool or black or tarry stools. She reports that she is planning to have a D&C soon done by Dr. Samano. She is unsure why. The patient reports that since August she has also been self cathing, however she is unsure why she is unable to completely evacuate her bladder. She reports that she was told that she would need a Sheikh catheter, however she refused and instead is self cathing. The patient reports having generalized abdominal pain that she has difficulty describing the character of or any other details regarding the abdominal pain. Unfortunately, the patient is a poor historian. The patient reports that her primary care physician is Dr. Hernandez. She has not seen Dr. Hernandez since August. She reports that she does have home health that comes out. She reports that in August her primary care physician discontinued her diabetic medication for unknown reason. Ambulance services brought the patient in the reports that her blood sugar was critically high prior to arrival. The patient was started on normal saline IV fluids and transported to this facility. She denies having any known recent fevers, cough or congestion, neck pain, chest pain, shortness of breath, or neurologic symptoms. The patient incidentally also reports that she was diagnosed with a urinary tract infection on November 28, however Dr. Hernandez has not started her on antibiotic yet. Patient stated that she was brought to the ER by [facility] due to progressive generalized weakness. She was noted to have a fingerstick glucose in the 1000 range and blood glucose in the ER was in the 700s with a metabolic acidosis. Patient was started on DKA protocol by ER physician. She was noted to have a leukocytosis and cloudy urine with suspicion of a UTI hence after obtaining cultures she was initiated on IV Zosyn and received a dose of vancomycin in the ER. When I evaluated the patient she was resting in bed comfortably and denies any chest pain shortness of breath nausea, palpitations. 12/19: Over the night her anion gap closed and she was transitioned to subcutaneous insulin despite low bicarb. T-max of 98.6. I/O 4553/1650. She is awake, alert, complains of back pain, denies any nausea or vomiting, chest pain, palpitations. She states that she had a bowel movement over the night. 12/20. Patient says she is feeling all right. Denies any pain. Somnolent, wakes up for exam. Objective Vital Signs Date Time Temp Pulse Resp B/P (MAP) Pulse Ox O2 Delivery O2 Flow Rate FiO2 12/20/17 16:00 93 22 141/67 (91) 100 12/20/17 16:00 93 12/20/17 14:00 96 12/20/17 12:00 95 12/20/17 12:00 97.6 95 16 146/64 (91) 98 12/20/17 10:17 137/60 (85) 12/20/17 10:00 99 12/20/17 08:57 100 21 12/20/17 08:00 103 12/20/17 08:00 98.1 103 16 172/68 (102) 99 12/20/17 06:00 104 12/20/17 04:00 98.2 101 16 142/67 (92) 99 12/20/17 04:00 101 12/20/17 02:00 94 12/20/17 00:00 97 12/20/17 00:00 98.3 97 15 128/57 (80) 99 12/19/17 23:21 16 12/19/17 22:00 112 12/19/17 20:00 98.2 108 16 169/77 (107) 100 12/19/17 20:00 108 12/19/17 18:00 100 I/O 12/19/17 12/19/17 12/19/17 12/20/17 12/20/17 12/20/17 07:00 15:00 23:00 07:00 15:00 23:00 Intake Total 1668 ml 550 ml 120 ml Output Total 900 ml 1500 ml 1800 ml Balance 768 ml -950 ml -1680 ml Intake Oral 480 ml 550 ml 120 ml IV Total 1188 ml Output Urine Total 900 ml 1500 ml 1800 ml # Bowel Movements 3 1 1 Result Diagram: 12/20/17 0253 12/20/17 0253 Objective Remarks GENERAL: Patient lying in bed. Sleeping, wakes up for exam. Appears comfortable. SKIN: Warm and dry. HEAD: Normocephalic. EYES: No scleral icterus. No injection or drainage. NECK: Supple, trachea midline. No JVD. CARDIOVASCULAR: Regular rate and rhythm without murmurs, gallops, or rubs. RESPIRATORY: Breath sounds equal bilaterally. No accessory muscle use. GASTROINTESTINAL: Abdomen slightly distended. Tender to moderate palpation. No rebound or guarding. MUSCULOSKELETAL: No cyanosis, or edema. BACK: Nontender without obvious deformity. No CVA tenderness. A/P Assessment and Plan // Sepsis secondary to gram-negative UTI, slowly improving //UTI //Gram-negative bacteremia. Klebsiella = Continue antibiotics. Repeat cultures. Consult infectious disease. // DKA -blood glucose improved, but hydroxybutyrate normalized = Resolved, however poor by mouth intake. Continue IV fluids and insulin siding scale. //Pelvic mass with impaction. Laxatives ordered. //AKA on CTD. Creatinine stable. Nephrology following. Continue to monitor. //Hypertension blood pressure acceptable. Continue to monitor. //Anion gap metabolic acidosis -likely related to renal failure, lactic acid normal, beta hydroxybutyrate normal //Nonanimal gap metabolic acidosis = Anion gap has resolved, however non-anion gap remained secondary to kidney failure. Continue to monitor. Nephrology following. Appreciate assistance // Severe anemia -required 1 unit of PRBC transfusion = 11 7.5. Continue to monitor. Discharge Planning continue inpatient management. PT and OT following. Chandrakant Childers MD Dec 20, 2017 17:57
[2017-12-20] MEDS ORDERED: DOCUSATE SODIUM 50 MG/SENNA 8.6 MG TAB PO ONE (18:00)
[2017-12-20] MEDS ORDERED: MAGNESIUM HYDROXIDE SUSP 30 ML CUP PO ONE (18:00)
--- NOTE | 2017-12-20 20:59 | RADRPT ---
EXAM DATE: 12/20/2017 8:53 PM EDT AGE/SEX: 57 years / Female INDICATIONS: Distention. CLINICAL DATA: This is the patient's initial encounter. Patient reports that signs and symptoms have been present for 1 week and indicates a pain score of Nonresponsive. MEDICAL/SURGICAL HISTORY: Non-responsive. Non-responsive. COMPARISON: Abdominal x-ray 2017. FINDINGS: The abdominal bowel gas pattern is normal. Linear air paralleling the wall of the urinary bladder on the left. No abnormal masses, calcifications, or organomegaly is seen. The osseous structures are u nremarkable. CONCLUSION: 1. Linear air-like density paralleling the left lateral wall of the urinary bladder. This is likely within the wall as opposed to the lumen. This raises concern for acute cystitis. Electronically signed by: David Almaguer MD 12/20/2017 8:58 PM EDT
[2017-12-21] VITALS (11 sets, daily range): BP systolic 136–190; BP diastolic 59–89; PULSE 82–106; RESP 15–19; TEMP 97.2–98.2; O2SAT 95–98
[2017-12-21] MEDS: oxyCODONE/ACETAMINOPHEN 5 MG/325 MG TAB PO PRN ×3 (02:43→19:44)
[2017-12-21] MEDS: CHLORHEXIDINE GLUCONATE 2 % 1 PACK (2 CLOTHS) TOP SCH ×2 (04:00→22:57)
[2017-12-21] MEDS: PIPERACIL-TAZO 2.25 GM PREMIX 50 ML IV SCH (08:38)
[2017-12-21] MEDS: INSULIN HUMAN NPH 1,000 UNITS/10 ML VIAL SQ SCH ×2 (08:38→17:00)
[2017-12-21] MEDS: SODIUM CHLORIDE 0.9% FLUSH 10 ML FLUSH IV FLUSH SCH ×2 (08:39→19:47)
[2017-12-21] MEDS: INSULIN ASPART SUPPLEMENTAL SCALE SQ SCH ×4 (08:39→21:38)
[2017-12-21] MEDS: DULoxetine HCl DR 30 MG CAP PO SCH (08:39)
[2017-12-21] MEDS: VITAMIN B CMPLX/VITC/FOLIC AC CAP PO SCH (08:40)
[2017-12-21] MEDS: PANTOPRAZOLE SOD 40 MG DELAYED RELEASE TAB PO SCH (08:41)
[2017-12-21] MEDS: DOCUSATE SODIUM 50 MG/SENNA 8.6 MG TAB PO SCH ×2 (08:41→19:45)
[2017-12-21] MEDS: MINERAL OIL ENEMA 118 ML BTL RECTAL SCH (08:57)
[2017-12-21] MEDS: ONDANSETRON ODT 4 MG TAB PO PRN ×2 (10:51→18:21)
[2017-12-21] MEDS: SODIUM BICARBONATE 8.4% INJ 150 MEQ in WATER STERILE FOR INJ 850 ML IV SCH ×2 (12:00→22:57)
--- NOTE | 2017-12-21 12:48 | PD.ONC.PN ---
Subjective Subjective Remarks ob/gyn nurse/onc progress note late entry: seen 12/21/17 at 0745 patient resting in bed more awake and alert today, RN states she is being transferred to floor today I explained we wanted to make sure she knew that we were going to move forward with EUA and D&C once she is medically cleared. Objective Data Date Time Temp Pulse Resp B/P (MAP) Pulse Ox O2 Delivery O2 Flow Rate FiO2 12/21/17 09:26 95 12/21/17 08:00 88 12/21/17 08:00 98.0 96 16 168/74 (105) 97 12/21/17 06:00 87 12/21/17 04:00 98.0 95 16 142/64 (90) 98 12/21/17 04:00 95 12/21/17 03:43 16 12/21/17 02:00 96 12/21/17 00:00 98.2 102 15 142/59 (86) 97 12/21/17 00:00 102 12/20/17 22:00 96 12/20/17 20:00 98.5 96 16 148/62 (90) 95 12/20/17 20:00 96 12/20/17 18:00 91 12/20/17 16:00 93 22 141/67 (91) 100 12/20/17 16:00 93 12/20/17 14:00 96 12/21/17 12/21/17 12/21/17 07:00 15:00 23:00 Intake Total 350 ml Output Total 1900 ml Balance -1550 ml Result Diagram: 12/20/17 0253 12/20/17 0253 Culture Results Microbiology Date/Time Source Procedure Growth Status 12/20/17 14:36 Blood Peripheral Aerobic Blood Culture - Preliminary NO GROWTH IN 1 DAY Resulted 12/20/17 14:36 Blood Peripheral Anaerobic Blood Culture - Preliminary NO GROWTH IN 1 DAY Resulted 12/20/17 14:31 Blood Peripheral Aerobic Blood Culture - Preliminary NO GROWTH IN 1 DAY Resulted 12/20/17 14:31 Blood Peripheral Anaerobic Blood Culture - Preliminary NO GROWTH IN 1 DAY Resulted Administered Medications Medications (Trade) Dose Ordered Sig/Elroy Route PRN Reason Start Time Stop Time Status Last Admin Dose Admin Sodium Chloride (NS Flush) 2 ml BID IV FLUSH 12/18/17 09:00 12/21/17 08:39 Pantoprazole Sodium (Protonix) 40 mg DAILY PO 12/18/17 09:00 12/21/17 08:41 Ondansetron HCl (Zofran Odt) 4 mg Q6H PRN PO NAUSEA OR VOMITING 12/17/17 23:45 12/21/17 10:51 Miscellaneous Information ([facility] Nursing Information) 1 Q361D XX 12/17/17 23:15 12/18/17 02:57 Chlorhexidine Gluconate (Chlorhexidine 2% Cloth) 3 pack Taper DAILY@04 TOP 12/18/17 04:00 12/14/18 03:59 12/21/17 04:00 Senna/Docusate Sodium (Debi-Colace) 1 tab BID PO 12/18/17 09:00 12/21/17 08:41 Piperacillin Sod/ Tazobactam Sod 50 ml @ 100 mls/hr Q8H IV 12/18/17 08:00 12/21/17 08:38 Vitamin B Complex/ Vit C/Folic Acid (Nephrocaps) 1 cap DAILY PO 12/18/17 09:00 12/21/17 08:40 Oxycodone/ Acetaminophen (Percocet 5-325 Mg) 1 tab Q4H PRN PO pain scale 3-10 12/18/17 02:30 12/21/17 12:18 Insulin Human NPH (NovoLIN N INJ) 15 units BID@08,17 SQ 12/19/17 08:00 12/21/17 08:38 Insulin Aspart (NovoLOG SUPPLEMENTAL SCALE) 1 ACHS SQ 12/19/17 08:00 12/21/17 12:21 Sodium Bicarbonate 150 meq/Sterile Water 1,000 ml @ 100 mls/hr Q10H IV 12/19/17 10:00 12/20/17 22:03 Duloxetine HCl (Cymbalta Dr) 30 mg DAILY PO 12/20/17 15:00 12/21/17 08:39 Objective Remarks GENERAL: Well-nourished, well-developed patient. SKIN: Warm and dry. HEAD: Normocephalic. EYES: No scleral icterus. No injection or drainage. NECK: Supple, CARDIOVASCULAR: Regular rate and rhythm without murmurs. EXTREMITIES: No cyanosis, or edema. MUSCULOSKELETAL: Adequate muscle tone. NEUROLOGICAL: No obvious focal deficit. Awake, alert, and oriented x3. PSYCHIATRIC: Appropriate mood and affect; insight and judgment normal. Assessment/Plan Problem List: (1) Adnexal mass ICD Codes: N94.9 - Unspecified condition associated with female genital organs and menstrual cycle Status: Acute Plan: planned for outpatient EUA, D&C once she is medically cleared...scheduled for January 08 (?) possibly could be done during in patient if cleared from medical standpoint and sepsis resolved. Attending Statement discussed with Dr. Samano and he agrees with plan of care. Melissa Chapa Dec 21, 2017 12:48
[2017-12-21 13:22] LABS: AUTOMATED NEUTROPHIL # 12.7 TH/MM3 (1.8-7.7); BASOPHIL # 0.1 TH/MM3 (0-0.2); BASOPHIL % 0.5 % (0.0-2.0); EOSINOPHIL # 0.2 TH/MM3 (0-0.4); HEMATOCRIT 23.6 % (35.0-46.0); HEMOGLOBIN 7.8 GM/DL (11.6-15.3); LYMPH % 20.1 % (9.0-44.0); LYMPHOCYTE # 3.4 TH/MM3 (1.0-4.8); MEAN CELL VOLUME 67.5 FL (80.0-100.0); MEAN CORPUSCULAR HEMOGLOBIN 22.2 PG (27.0-34.0); MEAN CORPUSCULAR HGB CONC 32.9 % (32.0-36.0); MEAN PLATELET VOLUME 7.5 FL (7.0-11.0); MONO % 4.1 % (0.0-8.0); MONOCYTE # 0.7 TH/MM3 (0-0.9); NEUT % 74.3 % (16.0-70.0); PLATELET COUNT 348 TH/MM3 (150-450); RED BLOOD COUNT 3.49 MIL/MM3 (4.00-5.30); RED CELL DISTRIBUTION WIDTH 17.4 % (11.6-17.2); WHITE BLOOD COUNT 17.1 TH/MM3 (4.0-11.0)
--- NOTE | 2017-12-21 13:25 | HHI.PR ---
Subjective Patient symptoms today Pt seen and examined. Having BM's. Alcaraz in place and urine slightly cloudy. Notes some lower abdominal pain. KUB noted: emphysematous cystitis Objective Vital Signs Vital Signs Date Time Temp Pulse Resp B/P (MAP) Pulse Ox O2 Delivery O2 Flow Rate FiO2 12/21/17 09:26 95 12/21/17 08:00 88 12/21/17 08:00 98.0 96 16 168/74 (105) 97 12/21/17 06:00 87 12/21/17 04:00 98.0 95 16 142/64 (90) 98 12/21/17 04:00 95 12/21/17 03:43 16 12/21/17 02:00 96 12/21/17 00:00 98.2 102 15 142/59 (86) 97 12/21/17 00:00 102 12/20/17 22:00 96 12/20/17 20:00 98.5 96 16 148/62 (90) 95 12/20/17 20:00 96 12/20/17 18:00 91 12/20/17 16:00 93 22 141/67 (91) 100 12/20/17 16:00 93 12/20/17 14:00 96 Intake & Output 12/21/17 12/21/17 07:00 19:00 Intake Total 450 ml Output Total 1900 ml Balance -1450 ml Intake Oral 350 ml IV Total 100 ml Output Urine Total 1900 ml # Bowel Movements 2 Result Diagram: 12/20/17 0253 12/20/17 0253 Objective Remarks Abd:soft,nd, slight tenderness Alcaraz: slightly cloudy Medications and IVs Current Medications Medications (Trade) Dose Ordered Sig/Elroy Route Start Time Stop Time Status Last Admin (NS Flush) 2 ml UNSCH PRN IV FLUSH 12/17/17 23:15 (NS Flush) 2 ml BID IV FLUSH 12/18/17 09:00 12/21/17 08:39 (Tylenol) 650 mg Q6H PRN PO 12/17/17 23:15 (Protonix) 40 mg DAILY PO 12/18/17 09:00 12/21/17 08:41 (Zofran Odt) 4 mg Q6H PRN PO 12/17/17 23:45 12/21/17 10:51 (Duoneb Neb) 1 ampule Q2HR NEB PRN INH 12/17/17 23:15 ([facility] Nursing Information) 1 Q361D XX 12/17/17 23:15 12/18/17 02:57 (Chlorhexidine 2% Cloth) 3 pack Taper DAILY@04 TOP 12/18/17 04:00 12/14/18 03:59 12/21/17 04:00 (Chlorhexidine 2% Cloth) 3 pack UNSCH PRN TOP 12/17/17 23:15 (Debi-Colace) 1 tab BID PO 12/18/17 09:00 12/21/17 08:41 (Milk Of Magnesia Liq) 30 ml Q12H PRN PO 12/17/17 23:15 (Senokot) 17.2 mg Q12H PRN PO 12/17/17 23:15 (Dulcolax Supp) 10 mg DAILY PRN RECTAL 12/17/17 23:15 (Lactulose Liq) 30 ml DAILY PRN PO 12/17/17 23:15 Piperacillin Sod/ Tazobactam Sod 50 ml @ 100 mls/hr Q8H IV 12/18/17 08:00 12/21/17 08:38 (Nephrocaps) 1 cap DAILY PO 12/18/17 09:00 12/21/17 08:40 (Percocet 5-325 Mg) 1 tab Q4H PRN PO 12/18/17 02:30 12/21/17 12:18 (Fleet Mineral Oil Enema) 118 ml DAILY RECTAL 12/18/17 11:30 (D50w (Vial) Inj) 50 ml UNSCH PRN IV PUSH 12/19/17 02:15 (NovoLIN N INJ) 15 units BID@08,17 SQ 12/19/17 08:00 12/21/17 08:38 (NovoLOG SUPPLEMENTAL SCALE) 1 ACHS SQ 12/19/17 08:00 12/21/17 12:21 (Glucagon Inj) 1 mg UNSCH PRN IM/SQ 12/19/17 02:30 Sodium Bicarbonate 150 meq/Sterile Water 1,000 ml @ 100 mls/hr Q10H IV 12/19/17 10:00 12/20/17 22:03 (Cymbalta Dr) 30 mg DAILY PO 12/20/17 15:00 12/21/17 08:39 Assessment and Plan Assessment and Plan 57 y.o female with h/o urinary retention and constipation with new finding of emphysematous cystitis Maintain alcaraz for 3 weeks Continue PO abx as outpt-Bactrim F/U in office in 3 weeks Continue Bowel regiment as outpt May benefit from SP tube on outpt basis as compliance with [facility]IC would not be an issue then. Jose Guadalupe Hernandez DO Dec 21, 2017 13:25
[2017-12-21 14:01] LABS: BANDS 13 % (0-6); LYMPHOCYTES 4 % (9-44); MONOCYTES 1 % (0-8); NEUTROPHIL # MANUAL DIFF 15.7 TH/MM3 (1.8-7.7); POLYS (SEG NEUTROPHILS) 79 % (16-70); TARGET CELLS 2+ (NORMAL)
[2017-12-21 14:02] LABS: TOXIC GRANULATION 1+ (NORMAL)
[2017-12-21 14:16] LABS: ALBUMIN 1.5 GM/DL (3.4-5.0); ALKALINE PHOSPHATASE 446 U/L (45-117); ALT (GPT) 21 U/L (10-53); AST (GOT) 17 U/L (15-37); BICARBONATE 30.8 MEQ/L (21.0-32.0); BLOOD UREA NITROGEN 56 MG/DL (7-18); CALCIUM 8.8 MG/DL (8.5-10.1); CHLORIDE 100 MEQ/L (98-107); CREATININE 4.06 MG/DL (0.50-1.00); GLOMERULAR FILTRATION RATE 14 ML/MIN (>89); GLUCOSE,RANDOM 120 MG/DL (74-106); MAGNESIUM 2.1 MG/DL (1.5-2.5); SODIUM (NA) 138 MEQ/L (136-145); TOTAL BILIRUBIN ADULT 1.3 MG/DL (0.2-1.0); TOTAL PROTEIN 6.3 GM/DL (6.4-8.2)
--- NOTE | 2017-12-21 14:51 | HHI.IDPN ---
Subjective Subjective Remarks is a 57 y/o CF known to me from prior admission. Patient was previously hospitalized for E. coli ESBL bacteremia as well as UTI. At that time patient was diagnosed to have a uterine adnexal mass and urology as well as [employer] oncology were involved. Patient underwent treatment for ESBL E. coli bacteremia for a total of 2 weeks with IV ertapenem as outpatient. Subsequently patient has been following up with urology and she tells me that there was a plan for a surgical procedure but it is postponed. Upon review of Dr. Samano notes it appears that patient needed cardiology clearance for the procedure under anesthesia. Patient was found to have EKG said changes suggestive of ischemia and a cardiology evaluation revealed that she was at moderate risk for the procedure under anesthesia. Despite that the plan was to proceed with the procedure on January 08 but patient in the interim felt bad and is now admitted to the hospital. Patient describes that for the last several days she has been experiencing extreme weakness pain all over her body. Her boyfriend who is in the room reports that she has been having extremely severe pain upon minimal touch especially in her ankles thought to be secondary to her neuropathy. She lost her ability to stand because of this weakness and pain and also reported abdominal distention and discomfort and due to an overall feeling of unwellness she presented to the emergency department. She reports that her blood sugar was greater than 1000 by EMS fingerstick. She reports compliance with her medications but from past admission experience with her I am not sure if she is compliant. Patient was also seen by urology during her last admission and noted to have neurogenic bladder in addition to a component of obstipation from the uterine mass related urinary problems. Patient denies any vaginal spotting or any blood-tinged discharge in the interim. She does report obstipation and periods of constipation versus fairly severe despite taking a stool softener. Sepsis workup was initiated blood cultures are now positive for Klebsiella oxytoca as well as urine cultures are positive for Klebsiella oxytoca. Patient has been evaluated by urology and it is their recommendation that patient had a Sheikh catheterization throughout her admission and possibly need for intermittent self-catheterization on discharge. Patient has also been evaluated by [employer] oncology and does not appear that they have any immediate plans for surgery. A CAT scan of the abdomen showed a lobulated mass in the left adnexal region the left lower quadrant similar to her prior imaging in August as well as October 2017. She was noted to have a markedly distended bladder as well as rectal impaction and additionally bilateral mild to moderate hydronephrosis. Patient denies any fevers chills or night sweats prior to admission GI symptoms as noted above. No [employer] related discharge. [employer] history as noted above. Denies any weight loss. Appetite okay. Infectious disease consulted for evaluation and management of sepsis, gram- negative bacteremia as well as gram-negative navya UTI. Overnight events reviewed No fevers No rash No diarrhea WBC still at 17. Antibiotics Current Medications Medications (Trade) Dose Ordered Sig/Elroy Route Start Time Stop Time Status Last Admin (NS Flush) 2 ml UNSCH PRN IV FLUSH 12/17/17 23:15 (NS Flush) 2 ml BID IV FLUSH 12/18/17 09:00 12/21/17 08:39 (Tylenol) 650 mg Q6H PRN PO 12/17/17 23:15 (Protonix) 40 mg DAILY PO 12/18/17 09:00 12/21/17 08:41 (Zofran Odt) 4 mg Q6H PRN PO 12/17/17 23:45 12/21/17 10:51 (Duoneb Neb) 1 ampule Q2HR NEB PRN INH 12/17/17 23:15 ([facility] Nursing Information) 1 Q361D XX 12/17/17 23:15 12/18/17 02:57 (Chlorhexidine 2% Cloth) 3 pack Taper DAILY@04 TOP 12/18/17 04:00 12/14/18 03:59 12/21/17 04:00 (Chlorhexidine 2% Cloth) 3 pack UNSCH PRN TOP 12/17/17 23:15 (Debi-Colace) 1 tab BID PO 12/18/17 09:00 12/21/17 08:41 (Milk Of Magnesia Liq) 30 ml Q12H PRN PO 12/17/17 23:15 (Senokot) 17.2 mg Q12H PRN PO 12/17/17 23:15 (Dulcolax Supp) 10 mg DAILY PRN RECTAL 12/17/17 23:15 (Lactulose Liq) 30 ml DAILY PRN PO 12/17/17 23:15 Piperacillin Sod/ Tazobactam Sod 50 ml @ 100 mls/hr Q8H IV 12/18/17 08:00 12/21/17 08:38 (Nephrocaps) 1 cap DAILY PO 12/18/17 09:00 12/21/17 08:40 (Percocet 5-325 Mg) 1 tab Q4H PRN PO 12/18/17 02:30 12/21/17 12:18 (Fleet Mineral Oil Enema) 118 ml DAILY RECTAL 12/18/17 11:30 (D50w (Vial) Inj) 50 ml UNSCH PRN IV PUSH 12/19/17 02:15 (NovoLIN N INJ) 15 units BID@08,17 SQ 12/19/17 08:00 12/21/17 08:38 (NovoLOG SUPPLEMENTAL SCALE) 1 ACHS SQ 12/19/17 08:00 12/21/17 12:21 (Glucagon Inj) 1 mg UNSCH PRN IM/SQ 12/19/17 02:30 Sodium Bicarbonate 150 meq/Sterile Water 1,000 ml @ 100 mls/hr Q10H IV 12/19/17 10:00 12/20/17 22:03 (Cymbalta Dr) 30 mg DAILY PO 12/20/17 15:00 12/21/17 08:39 Lines Lines ok Past Medical History Past Medical History Type 2 diabetes, pelvic mass (or masses), neurogenic bladder, obstipation, anxiety, hypertension, elevated cholesterol, gastroesophageal reflux, peripheral neuropathy. Past Surgical History Knee surgery. She has had a prior colonoscopy. Allergies: Coded Allergies: No Known Allergies (Verified Allergy, Unknown, 10/30/17) Objective . Vital Signs Date Time Temp Pulse Resp B/P (MAP) Pulse Ox O2 Delivery O2 Flow Rate FiO2 12/21/17 12:00 97.2 106 19 190/81 (117) 97 12/21/17 09:26 95 12/21/17 08:00 88 12/21/17 08:00 98.0 96 16 168/74 (105) 97 12/21/17 06:00 87 12/21/17 04:00 98.0 95 16 142/64 (90) 98 12/21/17 04:00 95 12/21/17 03:43 16 12/21/17 02:00 96 12/21/17 00:00 98.2 102 15 142/59 (86) 97 12/21/17 00:00 102 6/21/18 22:00 96 12/20/17 20:00 98.5 96 16 148/62 (90) 95 12/20/17 20:00 96 12/20/17 18:00 91 12/20/17 16:00 93 22 141/67 (91) 100 12/20/17 16:00 93 . Laboratory Tests Test 12/20/17 02:53 12/21/17 13:05 White Blood Count 17.2 TH/MM3 17.1 TH/MM3 Red Blood Count 3.35 MIL/MM3 3.49 MIL/MM3 Hemoglobin 7.5 GM/DL 7.8 GM/DL Hematocrit 23.0 % 23.6 % Mean Corpuscular Volume 68.6 FL 67.5 FL Mean Corpuscular Hemoglobin 22.5 PG 22.2 PG Mean Corpuscular Hemoglobin Concent 32.8 % 32.9 % Red Cell Distribution Width 17.6 % 17.4 % Platelet Count 293 TH/MM3 348 TH/MM3 Mean Platelet Volume 7.7 FL 7.5 FL CBC Comment AUTO DIFF AUTO DIFF Differential Total Cells Counted 100 100 Neutrophils % (Manual) 73 % 79 % Band Neutrophils % 8 % 13 % Lymphocytes % 11 % 4 % Monocytes % 6 % 1 % Eosinophils % 1 % 3 % Neutrophils # (Manual) 14.1 TH/MM3 15.7 TH/MM3 Myelocytes 1 % Differential Comment FINAL DIFF MANUAL FINAL DIFF MANUAL Toxic Granulation 1+ 1+ Platelet Estimate NORMAL NORMAL Platelet Morphology Comment NORMAL NORMAL Ovalocytes 1+ Neutrophils (%) (Auto) 74.3 % Lymphocytes (%) (Auto) 20.1 % Monocytes (%) (Auto) 4.1 % Eosinophils (%) (Auto) 1.0 % Basophils (%) (Auto) 0.5 % Neutrophils # (Auto) 12.7 TH/MM3 Lymphocytes # (Auto) 3.4 TH/MM3 Monocytes # (Auto) 0.7 TH/MM3 Eosinophils # (Auto) 0.2 TH/MM3 Basophils # (Auto) 0.1 TH/MM3 Target Cells 2+ Laboratory Tests Test 12/20/17 02:53 12/21/17 13:05 Blood Urea Nitrogen 69 MG/DL 56 MG/DL Creatinine 4.71 MG/DL 4.06 MG/DL Random Glucose 104 MG/DL 120 MG/DL Total Protein 5.8 GM/DL 6.3 GM/DL Albumin 1.4 GM/DL 1.5 GM/DL Calcium Level 9.2 MG/DL 8.8 MG/DL Phosphorus Level 3.5 MG/DL 3.0 MG/DL Magnesium Level 2.3 MG/DL 2.1 MG/DL Alkaline Phosphatase 302 U/L 446 U/L Aspartate Amino Transf (AST/SGOT) 17 U/L 17 U/L Alanine Aminotransferase (ALT/SGPT) 18 U/L 21 U/L Total Bilirubin 1.9 MG/DL 1.3 MG/DL Sodium Level 135 MEQ/L 138 MEQ/L Potassium Level 4.5 MEQ/L 3.8 MEQ/L Chloride Level 106 MEQ/L 100 MEQ/L Carbon Dioxide Level 15.8 MEQ/L 30.8 MEQ/L Anion Gap 13 MEQ/L 7 MEQ/L Estimat Glomerular Filtration Rate 12 ML/MIN 14 ML/MIN Microbiology Date/Time Source Procedure Growth Status 12/20/17 14:36 Blood Peripheral Aerobic Blood Culture - Preliminary NO GROWTH IN 1 DAY Resulted 12/20/17 14:36 Blood Peripheral Anaerobic Blood Culture - Preliminary NO GROWTH IN 1 DAY Resulted 12/20/17 14:31 Blood Peripheral Aerobic Blood Culture - Preliminary NO GROWTH IN 1 DAY Resulted 12/20/17 14:31 Blood Peripheral Anaerobic Blood Culture - Preliminary NO GROWTH IN 1 DAY Resulted Imaging Last Impressions Abdomen X-Ray 12/20/17 0000 Signed Impressions: CONCLUSION: 1. Linear air-like density paralleling the left lateral wall of the urinary bl adder. This is likely within the wall as opposed to the lumen. This raises conc chantal for acute cystitis. Chest X-Ray 12/18/17 0600 Signed Impressions: CONCLUSION: Negative examination. Abdomen/Pelvis CT 12/17/17 2207 Signed Impressions: CONCLUSION: 1. Markedly distended bladder with mild to moderate bilateral hydronephrosis. 2. Rectal impaction measuring up to 8.5 cm in diameter. 3. Lobulated mass in left adnexal region extending into left lower quadrant si milar in appearance to August and October 2017. Cannot exclude a slow growing ovaria n neoplasm. Physical Exam GENERAL: This is a well-nourished, well-developed patient, in no apparent distress. SKIN: No rashes, ecchymoses or lesions. Cool and dry. HEAD: Atraumatic. Normocephalic. No temporal or scalp tenderness. EYES: Pupils equal round and reactive. Extraocular motions intact. No scleral icterus. No injection or drainage. ENT: Nose without bleeding, purulent drainage or septal hematoma. Throat without erythema, tonsillar hypertrophy or exudate. Uvula midline. Airway patent. NECK: Trachea midline. Supple, nontender, no meningeal signs. CARDIOVASCULAR: Heart sounds audible. RESPIRATORY: Clear to auscultation. Breath sounds equal bilaterally. No wheezes , rales, or rhonchi. GASTROINTESTINAL: Abdomen soft, diffuse tenderness more pronounced in the right lower quadrant. MUSCULOSKELETAL: Extremities without clubbing, cyanosis, or edema. No joint tenderness, effusion, or edema noted. No calf tenderness. Negative Homans sign bilaterally. NEUROLOGICAL: Awake and alert. Nonfocal exam. Psych cooperative IV line sites with no evidence of infection. Assessment & Plan Remarks Sepsis present on admission Klebsiella oxytoca bacteremia Klebsiella oxytoca UTI Chronically distended is chronically thick-walled urinary bladder possible chronic cystitis Obstipation with compression of possible re-the rectum over the bladder. Uterine adnexal mass [employer] on board. Evaluation ongoing. Recs: DC Zosyn IV. Start Oral Levaquin If no fevers, WBC trending downwards, tolerating po levaquin and Blood cultures negative at 72 hours ok to DC from ID standpoint once cleared by other MDs. Follow cultures Follow clinically. dw patient Will follow prn over the weekend. Please call sooner if any change in clinical condition or questions. Vika Pearson MD Dec 21, 2017 14:51
[2017-12-21] MEDS ORDERED: LEVOFLOXACIN 750 MG TAB PO ONE (16:00)
--- NOTE | 2017-12-21 17:32 | HHI.PR ---
Subjective Remarks The patient is a 57 year old female who presents to the [facility] emergency department with a history of reportedly feeling unwell since Sunday. She reports that she has had nausea and vomiting since Sunday. She has vomited in total 3 times on 12/17. She denies having bilious vomit. She denies having any hematemesis. She reports that she has been moving her bowels daily, however she does have a problem with constipation and is using a stool softener. She denies having any blood in her stool or black or tarry stools. She reports that she is planning to have a D&C soon done by Dr. Samano. She is unsure why. The patient reports that since August she has also been self cathing, however she is unsure why she is unable to completely evacuate her bladder. She reports that she was told that she would need a Sheikh catheter, however she refused and instead is self cathing. The patient reports having generalized abdominal pain that she has difficulty describing the character of or any other details regarding the abdominal pain. Unfortunately, the patient is a poor historian. The patient reports that her primary care physician is Dr. Hernandez. She has not seen Dr. Hernandez since August. She reports that she does have home health that comes out. She reports that in August her primary care physician discontinued her diabetic medication for unknown reason. Ambulance services brought the patient in the reports that her blood sugar was critically high prior to arrival. The patient was started on normal saline IV fluids and transported to this facility. She denies having any known recent fevers, cough or congestion, neck pain, chest pain, shortness of breath, or neurologic symptoms. The patient incidentally also reports that she was diagnosed with a urinary tract infection on November 28, however Dr. Hernandez has not started her on antibiotic yet. Patient stated that she was brought to the ER by [facility] due to progressive generalized weakness. She was noted to have a fingerstick glucose in the 1000 range and blood glucose in the ER was in the 700s with a metabolic acidosis. Patient was started on DKA protocol by ER physician. She was noted to have a leukocytosis and cloudy urine with suspicion of a UTI hence after obtaining cultures she was initiated on IV Zosyn and received a dose of vancomycin in the ER. When I evaluated the patient she was resting in bed comfortably and denies any chest pain shortness of breath nausea, palpitations. 12/19: Over the night her anion gap closed and she was transitioned to subcutaneous insulin despite low bicarb. T-max of 98.6. I/O 4553/1650. She is awake, alert, complains of back pain, denies any nausea or vomiting, chest pain, palpitations. She states that she had a bowel movement over the night. 12/20. Patient says she is feeling all right. Denies any pain. Somnolent, wakes up for exam. Objective Vital Signs Date Time Temp Pulse Resp B/P (MAP) Pulse Ox O2 Delivery O2 Flow Rate FiO2 12/21/17 13:18 18 12/21/17 12:00 97.2 106 19 190/81 (117) 97 12/21/17 09:26 95 12/21/17 08:00 88 12/21/17 08:00 98.0 96 16 168/74 (105) 97 12/21/17 06:00 87 12/21/17 04:00 98.0 95 16 142/64 (90) 98 12/21/17 04:00 95 12/21/17 02:00 96 12/21/17 00:00 98.2 102 15 142/59 (86) 97 12/21/17 00:00 102 12/20/17 22:00 96 12/20/17 20:00 98.5 96 16 148/62 (90) 95 12/20/17 20:00 96 12/20/17 18:00 91 I/O 12/20/17 12/20/17 12/20/17 12/21/17 12/21/17 12/21/17 07:00 15:00 23:00 07:00 15:00 23:00 Intake Total 120 ml 1100 ml 1060 ml 350 ml Output Total 1800 ml 1200 ml 1900 ml Balance -1680 ml 1100 ml -140 ml -1550 ml Intake Oral 120 ml 960 ml 350 ml IV Total 1100 ml 100 ml Output Urine Total 1800 ml 1200 ml 1900 ml # Bowel Movements 1 1 2 Result Diagram: 12/21/17 1305 12/21/17 1305 Objective Remarks GENERAL: Patient lying in bed on left side. Sleeping, wakes up for exam. Appears comfortable. SKIN: Warm and dry. HEAD: Normocephalic. EYES: No scleral icterus. No injection or drainage. NECK: Supple, trachea midline. No JVD. CARDIOVASCULAR: Regular rate and rhythm without murmurs, gallops, or rubs. RESPIRATORY: Breath sounds equal bilaterally. No accessory muscle use. GASTROINTESTINAL: Abdomen slightly distended. Tender to moderate palpation. No rebound or guarding. MUSCULOSKELETAL: No cyanosis, or edema. BACK: Nontender without obvious deformity. No CVA tenderness. A/P Assessment and Plan // Sepsis secondary to gram-negative UTI, slowly improving //UTI //Gram-negative bacteremia. Klebsiella = Continue antibiotics. Repeat cultures. Consult infectious disease. = White blood cell count still 17.1. Continue on antibiotics as per ID. Can take levofloxacin to complete treatment course. // DKA -blood glucose improved, but hydroxybutyrate normalized = Resolved, however poor by mouth intake. Continue IV fluids and insulin siding scale. //Pelvic mass with impaction. Continue laxatives. Gynecology/oncology following. Appreciate assistance. //SANDY on CKD: Creatinine stable. Nephrology following. Continue to monitor. //Hypertension blood pressure acceptable. Continue to monitor. //Anion gap metabolic acidosis -likely related to renal failure, lactic acid normal, beta hydroxybutyrate normal //Nonanimal gap metabolic acidosis = IV fluids as per nephrology. Appreciate assistance. // Severe anemia -required 1 unit of PRBC transfusion = Hemoglobin 7.8. Stable. Continue to monitor. Discharge Planning continue inpatient management. PT and OT consulted. Chandrakant Childers MD Dec 21, 2017 17:32
[2017-12-22] VITALS: BP 129/61; PULSE 92; RESP 16; TEMP 97.7; O2SAT 100
[2017-12-22 04:00] VITALS: BP 118/58; PULSE 95; RESP 16; TEMP 97.8; O2SAT 100
[2017-12-22 06:53] LABS: ALBUMIN 1.6 GM/DL (3.4-5.0); AST (GOT) 19 U/L (15-37); AUTOMATED NEUTROPHIL # 12.8 TH/MM3 (1.8-7.7); BASOPHIL # 0.1 TH/MM3 (0-0.2); BASOPHIL % 0.6 % (0.0-2.0); BLOOD UREA NITROGEN 49 MG/DL (7-18); CALCIUM 8.7 MG/DL (8.5-10.1); CHLORIDE 99 MEQ/L (98-107); CREATININE 3.59 MG/DL (0.50-1.00); EOSINOPHIL # 0.2 TH/MM3 (0-0.4); GLOMERULAR FILTRATION RATE 16 ML/MIN (>89); GLUCOSE,RANDOM 130 MG/DL (74-106); HEMATOCRIT 25.1 % (35.0-46.0); HEMOGLOBIN 8.2 GM/DL (11.6-15.3); LYMPH % 16.2 % (9.0-44.0); LYMPHOCYTE # 2.7 TH/MM3 (1.0-4.8); MEAN CELL VOLUME 68.3 FL (80.0-100.0); MEAN CORPUSCULAR HEMOGLOBIN 22.2 PG (27.0-34.0); MEAN CORPUSCULAR HGB CONC 32.6 % (32.0-36.0); MEAN PLATELET VOLUME 7.7 FL (7.0-11.0); NEUT % 76.2 % (16.0-70.0); PLATELET COUNT 396 TH/MM3 (150-450); RED BLOOD COUNT 3.67 MIL/MM3 (4.00-5.30); RED CELL DISTRIBUTION WIDTH 17.6 % (11.6-17.2); SODIUM (NA) 141 MEQ/L (136-145); WHITE BLOOD COUNT 16.7 TH/MM3 (4.0-11.0)
[2017-12-22 06:55] LABS: ALT (GPT) 23 U/L (10-53)
[2017-12-22 06:57] LABS: ALKALINE PHOSPHATASE 474 U/L (45-117); PHOSPHORUS 3.6 MG/DL (2.5-4.9); TOTAL BILIRUBIN ADULT 1.1 MG/DL (0.2-1.0); TOTAL PROTEIN 6.6 GM/DL (6.4-8.2)
[2017-12-22] MEDS: INSULIN ASPART SUPPLEMENTAL SCALE SQ SCH ×4 (08:00→21:00)
[2017-12-22 08:25] VITALS: BP 137/77; PULSE 93; RESP 20; TEMP 97.3; O2SAT 95
[2017-12-22] MEDS ORDERED: MAGNESIUM HYDROXIDE SUSP 30 ML CUP PO ONE (08:45)
[2017-12-22] MEDS ORDERED: DOCUSATE SODIUM 50 MG/SENNA 8.6 MG TAB PO ONE (08:45)
--- NOTE | 2017-12-22 08:48 | HHI.PR ---
Subjective Remarks The patient is a 57 year old female who presents to the [facility] emergency department with a history of reportedly feeling unwell since Sunday. She reports that she has had nausea and vomiting since Sunday. She has vomited in total 3 times on 12/17. She denies having bilious vomit. She denies having any hematemesis. She reports that she has been moving her bowels daily, however she does have a problem with constipation and is using a stool softener. She denies having any blood in her stool or black or tarry stools. She reports that she is planning to have a D&C soon done by Dr. Samano. She is unsure why. The patient reports that since August she has also been self cathing, however she is unsure why she is unable to completely evacuate her bladder. She reports that she was told that she would need a Sheikh catheter, however she refused and instead is self cathing. The patient reports having generalized abdominal pain that she has difficulty describing the character of or any other details regarding the abdominal pain. Unfortunately, the patient is a poor historian. The patient reports that her primary care physician is Dr. Hernandez. She has not seen Dr. Hernandez since August. She reports that she does have home health that comes out. She reports that in August her primary care physician discontinued her diabetic medication for unknown reason. Ambulance services brought the patient in the reports that her blood sugar was critically high prior to arrival. The patient was started on normal saline IV fluids and transported to this facility. She denies having any known recent fevers, cough or congestion, neck pain, chest pain, shortness of breath, or neurologic symptoms. The patient incidentally also reports that she was diagnosed with a urinary tract infection on November 28, however Dr. Hernandez has not started her on antibiotic yet. Patient stated that she was brought to the ER by [facility] due to progressive generalized weakness. She was noted to have a fingerstick glucose in the 1000 range and blood glucose in the ER was in the 700s with a metabolic acidosis. Patient was started on DKA protocol by ER physician. She was noted to have a leukocytosis and cloudy urine with suspicion of a UTI hence after obtaining cultures she was initiated on IV Zosyn and received a dose of vancomycin in the ER. When I evaluated the patient she was resting in bed comfortably and denies any chest pain shortness of breath nausea, palpitations. 12/19: Over the night her anion gap closed and she was transitioned to subcutaneous insulin despite low bicarb. T-max of 98.6. I/O 4553/1650. She is awake, alert, complains of back pain, denies any nausea or vomiting, chest pain, palpitations. She states that she had a bowel movement over the night. 12/20. Patient says she is feeling all right. Denies any pain. Somnolent, wakes up for exam. 12/22. Patient says she is feeling all right. Denies any chest pain or shortness of breath. Denies any nausea or vomiting. Objective Vital Signs Date Time Temp Pulse Resp B/P (MAP) Pulse Ox O2 Delivery O2 Flow Rate FiO2 12/22/17 04:00 97.8 95 16 118/58 (78) 100 12/22/17 00:00 97.7 92 16 129/61 (83) 100 12/21/17 21:00 86 12/21/17 20:00 97.8 87 16 136/89 (105) 98 12/21/17 19:51 97 21 12/21/17 16:00 97.5 84 18 156/69 (98) 95 12/21/17 13:18 18 12/21/17 12:00 97.2 106 19 190/81 (117) 97 12/21/17 09:26 95 I/O 12/21/17 12/21/17 12/21/17 12/22/17 12/22/17 12/22/17 07:00 15:00 23:00 07:00 15:00 23:00 Intake Total 350 ml 500 ml 550 ml Output Total 1900 ml 2300 ml 2450 ml Balance -1550 ml -1800 ml -1900 ml Intake Oral 350 ml 500 ml 550 ml Output Urine Total 1900 ml 2300 ml 2450 ml # Bowel Movements 2 Result Diagram: 12/22/1744212/22/17442 Objective Remarks GENERAL: Patient lying in bed on left side. Sleeping, wakes up for exam. Appears comfortable. SKIN: Warm and dry. HEAD: Normocephalic. EYES: No scleral icterus. No injection or drainage. NECK: Supple, trachea midline. No JVD. CARDIOVASCULAR: Regular rate and rhythm without murmurs, gallops, or rubs. RESPIRATORY: Breath sounds equal bilaterally. No accessory muscle use. GASTROINTESTINAL: Abdomen slightly distended. Tender to moderate palpation. No rebound or guarding. MUSCULOSKELETAL: No cyanosis, or edema. BACK: Nontender without obvious deformity. No CVA tenderness. A/P Assessment and Plan // Sepsis secondary to gram-negative UTI, slowly improving //UTI //Gram-negative bacteremia. Klebsiella = Continue antibiotics. Repeat cultures. Consult infectious disease. = White blood cell count trending down 16.7. Continue on antibiotics as per ID. Can take levofloxacin to complete treatment course. // DKA -blood glucose improved, but hydroxybutyrate normalized = Resolved, however poor by mouth intake. Continue IV fluids and insulin siding scale. //Pelvic mass with impaction. Continue laxatives. Gynecology/oncology following. Appreciate assistance. //SANDY on CKD: Creatinine stable. Nephrology following. Continue to monitor. = Improving. Decrease IV fluids and monitor. Encourage p.o. intake. //Hypertension blood pressure acceptable. Continue to monitor. //Anion gap metabolic acidosis -likely related to renal failure, lactic acid normal, beta hydroxybutyrate normal //Nonanimal gap metabolic acidosis = Decrease IV fluids with bicarb. // Severe anemia -required 1 unit of PRBC transfusion = Hemoglobin 8.2 stable. Continue to monitor. Discharge Planning continue inpatient management. PT and OT consulted. If blood cultures -72 hours, patient can be discharged on Levaquin to complete treatment course as per ID. We will need to continue Sheikh for several weeks with follow-up urology. Can follow-up as outpatient undergo surgery by Dr. Quick around January 08. Follow-up PT/OT consult Chandrakant Childers MD Dec 22, 2017 08:48
[2017-12-22] MEDS: MINERAL OIL ENEMA 118 ML BTL RECTAL SCH (09:00)
[2017-12-22] MEDS: VITAMIN B CMPLX/VITC/FOLIC AC CAP PO SCH (09:00)
[2017-12-22] MEDS: DULoxetine HCl DR 30 MG CAP PO SCH (09:00)
[2017-12-22] MEDS: DOCUSATE SODIUM 50 MG/SENNA 8.6 MG TAB PO SCH ×4 (09:00→21:32)
[2017-12-22] MEDS: PANTOPRAZOLE SOD 40 MG DELAYED RELEASE TAB PO SCH (10:06)
[2017-12-22] MEDS: INSULIN HUMAN NPH 1,000 UNITS/10 ML VIAL SQ SCH ×2 (10:07→17:43)
[2017-12-22] MEDS: SODIUM CHLORIDE 0.9% FLUSH 10 ML FLUSH IV FLUSH SCH ×2 (10:08→21:00)
[2017-12-22 10:31] LABS: BANDS 5 % (0-6); LYMPHOCYTES 11 % (9-44); MONOCYTES 6 % (0-8); MYELOCYTES 3 % (0-0); NEUTROPHIL # MANUAL DIFF 13.7 TH/MM3 (1.8-7.7); POLYS (SEG NEUTROPHILS) 74 % (16-70)
[2017-12-22 10:32] LABS: OVALOCYTES 1+ (NORMAL); TARGET CELLS 2+ (NORMAL)
[2017-12-22 12:18] VITALS: BP 185/83; PULSE 96; RESP 20; TEMP 97.4; O2SAT 95
[2017-12-22] MEDS: SODIUM BICARBONATE 8.4% INJ 150 MEQ in WATER STERILE FOR INJ 850 ML IV SCH (12:47)
[2017-12-22 16:23] VITALS: BP 124/62; PULSE 94; RESP 18; TEMP 97.7; O2SAT 98
[2017-12-22] MEDS: oxyCODONE/ACETAMINOPHEN 5 MG/325 MG TAB PO PRN ×2 (17:43→21:32)
[2017-12-22 20:00] VITALS: BP 165/80; PULSE 104; PULSE 95; RESP 18; TEMP 98.9; O2SAT 97
[2017-12-22] MEDS: CHLORHEXIDINE GLUCONATE 2 % 1 PACK (2 CLOTHS) TOP SCH (21:35)
[2017-12-23] VITALS (11 sets, daily range): BP systolic 135–180; BP diastolic 76–84; PULSE 90–139; RESP 18; TEMP 98–98.5; O2SAT 95–100
[2017-12-23] MEDS ORDERED: SODIUM CHLORID 0.9% 500 ML INJ 500 ML IV ONE ×2 (03:00→05:00)
[2017-12-23 03:34] LABS: AUTOMATED NEUTROPHIL # 13.1 TH/MM3 (1.8-7.7); BASOPHIL # 0.1 TH/MM3 (0-0.2); BASOPHIL % 0.4 % (0.0-2.0); EOSINOPHIL # 0.2 TH/MM3 (0-0.4); EOSINOPHIL % 1.5 % (0.0-4.0); HEMATOCRIT 26.5 % (35.0-46.0); HEMOGLOBIN 8.5 GM/DL (11.6-15.3); LYMPH % 12.5 % (9.0-44.0); LYMPHOCYTE # 2.1 TH/MM3 (1.0-4.8); MEAN CELL VOLUME 68.7 FL (80.0-100.0); MEAN CORPUSCULAR HEMOGLOBIN 22.2 PG (27.0-34.0); MEAN CORPUSCULAR HGB CONC 32.2 % (32.0-36.0); MEAN PLATELET VOLUME 7.2 FL (7.0-11.0); MONO % 7.2 % (0.0-8.0); MONOCYTE # 1.2 TH/MM3 (0-0.9); NEUT % 78.4 % (16.0-70.0); PLATELET COUNT 419 TH/MM3 (150-450); RED BLOOD COUNT 3.85 MIL/MM3 (4.00-5.30); RED CELL DISTRIBUTION WIDTH 17.9 % (11.6-17.2); WHITE BLOOD COUNT 16.7 TH/MM3 (4.0-11.0)
[2017-12-23 04:00] LABS: ALBUMIN 1.8 GM/DL (3.4-5.0); BICARBONATE 34.1 MEQ/L (21.0-32.0); CALCIUM 8.3 MG/DL (8.5-10.1); CREATININE 2.9 MG/DL (0.50-1.00); MAGNESIUM 1.6 MG/DL (1.5-2.5); PHOSPHORUS 3.2 MG/DL (2.5-4.9)
[2017-12-23 04:26] LABS: BANDS 5 % (0-6); LYMPHOCYTES 8 % (9-44); METAMYELOCYTES 2 % (0-1); MONOCYTES 4 % (0-8); MYELOCYTES 1 % (0-0); NEUTROPHIL # MANUAL DIFF 14.4 TH/MM3 (1.8-7.7); POLYS (SEG NEUTROPHILS) 78 % (16-70)
[2017-12-23 04:27] LABS: TARGET CELLS 1+ (NORMAL)
[2017-12-23 04:28] LABS: SPHEROCYTES OCC (NORMAL)
[2017-12-23] MEDS: SODIUM BICARBONATE 8.4% INJ 150 MEQ in WATER STERILE FOR INJ 850 ML IV SCH (05:40)
--- NOTE | 2017-12-23 05:43 | HHI.PR ---
Addendum to Inpatient Note Addendum Reason: Additional Documentation Additional Information RN called with concern for HR in the 130's. Patient has been asymptomatic, sleeping in bed. An EKG was ordered and reviewed showing normal sinus tachycardia. Also given 1 L NS bolus with improvement in her tachycardia. Telemetry reviewed showing HR in the 90's with episodes in the 110's. Patient assessed with no current complaints. Heart sounds are normal. Will continue IVF and monitoring. Denies any chest pain or shortness of breath. Will add supplemental magnesium, trending down. Annmarie Vieira Dec 23, 2017 05:43
[2017-12-23] MEDS ORDERED: MAGNESIUM OXIDE 400 MG TAB PO ONE (06:00)
[2017-12-23] MEDS: INSULIN ASPART SUPPLEMENTAL SCALE SQ SCH ×4 (08:00→21:00)
[2017-12-23] MEDS: VITAMIN B CMPLX/VITC/FOLIC AC CAP PO SCH (08:20)
[2017-12-23] MEDS: DULoxetine HCl DR 30 MG CAP PO SCH (08:21)
[2017-12-23] MEDS: DOCUSATE SODIUM 50 MG/SENNA 8.6 MG TAB PO SCH ×3 (08:21→20:22)
[2017-12-23] MEDS: PANTOPRAZOLE SOD 40 MG DELAYED RELEASE TAB PO SCH (08:21)
[2017-12-23] MEDS: SODIUM CHLORIDE 0.9% FLUSH 10 ML FLUSH IV FLUSH SCH ×2 (08:22→20:22)
[2017-12-23] MEDS: INSULIN HUMAN NPH 1,000 UNITS/10 ML VIAL SQ SCH ×2 (08:22→17:40)
[2017-12-23] MEDS: MINERAL OIL ENEMA 118 ML BTL RECTAL SCH (08:23)
[2017-12-23] MEDS: oxyCODONE/ACETAMINOPHEN 5 MG/325 MG TAB PO PRN ×2 (08:30→20:28)
--- NOTE | 2017-12-23 14:14 | EKG ---
Date Performed: 12/23/2017 Time Performed: 03:01:32 PTAGE: 57 years EKG: Probable sinus tachycardia Atrial premature complex Increased atrial rate since prior oscar ng. Borderline ECG PREVIOUS TRACING : 12/18/2017 13.27 DOCTOR: Alex Shah Interpretating Date/Time 12/23/2017 14:13:12
[2017-12-23] MEDS: SODIUM CHLOR 0.9% 1000 ML INJ 1,000 ML IV SCH (14:15)
--- NOTE | 2017-12-23 14:15 | HHI.PR ---
Subjective Remarks The patient is a 57 year old female who presents to the [facility] emergency department with a history of reportedly feeling unwell since Sunday. She reports that she has had nausea and vomiting since Sunday. She has vomited in total 3 times on 12/17. She denies having bilious vomit. She denies having any hematemesis. She reports that she has been moving her bowels daily, however she does have a problem with constipation and is using a stool softener. She denies having any blood in her stool or black or tarry stools. She reports that she is planning to have a D&C soon done by Dr. Samano. She is unsure why. The patient reports that since August she has also been self cathing, however she is unsure why she is unable to completely evacuate her bladder. She reports that she was told that she would need a Sheikh catheter, however she refused and instead is self cathing. The patient reports having generalized abdominal pain that she has difficulty describing the character of or any other details regarding the abdominal pain. Unfortunately, the patient is a poor historian. The patient reports that her primary care physician is Dr. Hernandez. She has not seen Dr. Hernandez since August. She reports that she does have home health that comes out. She reports that in August her primary care physician discontinued her diabetic medication for unknown reason. Ambulance services brought the patient in the reports that her blood sugar was critically high prior to arrival. The patient was started on normal saline IV fluids and transported to this facility. She denies having any known recent fevers, cough or congestion, neck pain, chest pain, shortness of breath, or neurologic symptoms. The patient incidentally also reports that she was diagnosed with a urinary tract infection on November 28, however Dr. Hernandez has not started her on antibiotic yet. Patient stated that she was brought to the ER by [facility] due to progressive generalized weakness. She was noted to have a fingerstick glucose in the 1000 range and blood glucose in the ER was in the 700s with a metabolic acidosis. Patient was started on DKA protocol by ER physician. She was noted to have a leukocytosis and cloudy urine with suspicion of a UTI hence after obtaining cultures she was initiated on IV Zosyn and received a dose of vancomycin in the ER. When I evaluated the patient she was resting in bed comfortably and denies any chest pain shortness of breath nausea, palpitations. 12/19: Over the night her anion gap closed and she was transitioned to subcutaneous insulin despite low bicarb. T-max of 98.6. I/O 4553/1650. She is awake, alert, complains of back pain, denies any nausea or vomiting, chest pain, palpitations. She states that she had a bowel movement over the night. 12/20. Patient says she is feeling all right. Denies any pain. Somnolent, wakes up for exam. 12/22. Patient says she is feeling all right. Denies any chest pain or shortness of breath. Denies any nausea or vomiting. 12-23 HAD ISSUES WITH TACHYCARDIA LAST NIGHT AND ELECTROLYTE ISSUES DW RN AND PT AND FAMILY WILL NEED SNF AT [place] CONTINUE IV FLUIDS- RENAL FUNCTIONS IMPROVING Objective Vitals Vital Signs Date Time Temp Pulse Resp B/P (MAP) Pulse Ox O2 Delivery O2 Flow Rate FiO2 12/23/17 12:00 98.2 104 18 157/77 (103) 95 12/23/17 08:10 Room Air 12/23/17 08:00 98.0 102 18 168/76 (106) 96 12/23/17 04:00 98 12/23/17 02:52 98.0 138 18 135/83 (100) 98 12/23/17 02:49 139 12/23/17 02:48 138 12/23/17 02:47 138 12/23/17 00:00 90 12/23/17 00:00 98.0 97 18 147/78 (101) 95 12/22/17 22:52 18 12/22/17 22:31 Room Air 12/22/17 20:00 104 12/22/17 20:00 98.9 95 18 165/80 (108) 97 12/22/17 16:23 97.7 94 18 124/62 (82) 98 I/O 12/22/17 12/22/17 12/22/17 12/23/17 12/23/17 12/23/17 07:00 15:00 23:00 07:00 15:00 23:00 Intake Total 550 ml 1080 ml 1000 ml Output Total 2450 ml 2350 ml Balance -1900 ml -1270 ml 1000 ml Intake Oral 550 ml 1080 ml IV Total 1000 ml Output Urine Total 2450 ml 2350 ml # Bowel Movements 1 Result Diagram: 12/23/17 0317 12/23/177 Other Results Laboratory Tests Test 12/21/17 13:05 12/22/17 04:43 12/23/17 03:17 White Blood Count 17.1 TH/MM3 16.7 TH/MM3 16.7 TH/MM3 Red Blood Count 3.49 MIL/MM3 3.67 MIL/MM3 3.85 MIL/MM3 Hemoglobin 7.8 GM/DL 8.2 GM/DL 8.5 GM/DL Hematocrit 23.6 % 25.1 % 26.5 % Mean Corpuscular Volume 67.5 FL 68.3 FL 68.7 FL Mean Corpuscular Hemoglobin 22.2 PG 22.2 PG 22.2 PG Mean Corpuscular Hemoglobin Concent 32.9 % 32.6 % 32.2 % Red Cell Distribution Width 17.4 % 17.6 % 17.9 % Platelet Count 348 TH/MM3 396 TH/MM3 419 TH/MM3 Mean Platelet Volume 7.5 FL 7.7 FL 7.2 FL Neutrophils (%) (Auto) 74.3 % 76.2 % 78.4 % Lymphocytes (%) (Auto) 20.1 % 16.2 % 12.5 % Monocytes (%) (Auto) 4.1 % 6.0 % 7.2 % Eosinophils (%) (Auto) 1.0 % 1.0 % 1.5 % Basophils (%) (Auto) 0.5 % 0.6 % 0.4 % Neutrophils # (Auto) 12.7 TH/MM3 12.8 TH/MM3 13.1 TH/MM3 Lymphocytes # (Auto) 3.4 TH/MM3 2.7 TH/MM3 2.1 TH/MM3 Monocytes # (Auto) 0.7 TH/MM3 1.0 TH/MM3 1.2 TH/MM3 Eosinophils # (Auto) 0.2 TH/MM3 0.2 TH/MM3 0.2 TH/MM3 Basophils # (Auto) 0.1 TH/MM3 0.1 TH/MM3 0.1 TH/MM3 CBC Comment AUTO DIFF AUTO DIFF AUTO DIFF Differential Total Cells Counted 100 100 100 Neutrophils % (Manual) 79 % 74 % 78 % Band Neutrophils % 13 % 5 % 5 % Lymphocytes % 4 % 11 % 8 % Monocytes % 1 % 6 % 4 % Eosinophils % 3 % 1 % 2 % Neutrophils # (Manual) 15.7 TH/MM3 13.7 TH/MM3 14.4 TH/MM3 Differential Comment FINAL DIFF MANUAL FINAL DIFF MANUAL FINAL DIFF MANUAL Toxic Granulation 1+ Platelet Estimate NORMAL NORMAL NORMAL Platelet Morphology Comment NORMAL NORMAL NORMAL Target Cells 2+ 2+ 1+ Blood Urea Nitrogen 56 MG/DL 49 MG/DL 40 MG/DL Creatinine 4.06 MG/DL 3.59 MG/DL 2.90 MG/DL Random Glucose 120 MG/DL 130 MG/DL 127 MG/DL Total Protein 6.3 GM/DL 6.6 GM/DL Albumin 1.5 GM/DL 1.6 GM/DL 1.8 GM/DL Calcium Level 8.8 MG/DL 8.7 MG/DL 8.3 MG/DL Phosphorus Level 3.0 MG/DL 3.6 MG/DL 3.2 MG/DL Magnesium Level 2.1 MG/DL 2.0 MG/DL 1.6 MG/DL Alkaline Phosphatase 446 U/L 474 U/L Aspartate Amino Transf (AST/SGOT) 17 U/L 19 U/L Alanine Aminotransferase (ALT/SGPT) 21 U/L 23 U/L Total Bilirubin 1.3 MG/DL 1.1 MG/DL Sodium Level 138 MEQ/L 141 MEQ/L 140 MEQ/L Potassium Level 3.8 MEQ/L 3.7 MEQ/L 3.7 MEQ/L Chloride Level 100 MEQ/L 99 MEQ/L 97 MEQ/L Carbon Dioxide Level 30.8 MEQ/L 33.0 MEQ/L 34.1 MEQ/L Anion Gap 7 MEQ/L 9 MEQ/L 9 MEQ/L Estimat Glomerular Filtration Rate 14 ML/MIN 16 ML/MIN 20 ML/MIN Myelocytes 3 % 1 % Ovalocytes 1+ Metamyelocytes 2 % Basophilic Stippling FAINT Spherocytes OCC Imaging Last Impressions Abdomen X-Ray 12/20/17 0000 Signed Impressions: CONCLUSION: 1. Linear air-like density paralleling the left lateral wall of the urinary bl adder. This is likely within the wall as opposed to the lumen. This raises conc chantal for acute cystitis. Chest X-Ray 12/18/17 0600 Signed Impressions: CONCLUSION: Negative examination. Abdomen/Pelvis CT 12/17/17 2207 Signed Impressions: CONCLUSION: 1. Markedly distended bladder with mild to moderate bilateral hydronephrosis. 2. Rectal impaction measuring up to 8.5 cm in diameter. 3. Lobulated mass in left adnexal region extending into left lower quadrant si milar in appearance to August and October 2017. Cannot exclude a slow growing ovaria n neoplasm. Objective Remarks GENERAL: Patient lying in bed on left side. Sleeping, wakes up for exam. Appears comfortable. SKIN: Warm and dry. HEAD: Normocephalic. EYES: No scleral icterus. No injection or drainage. NECK: Supple, trachea midline. No JVD. CARDIOVASCULAR: Regular rate and rhythm without murmurs, gallops, or rubs. RESPIRATORY: Breath sounds equal bilaterally. No accessory muscle use. GASTROINTESTINAL: Abdomen slightly distended. Tender to moderate palpation. No rebound or guarding. MUSCULOSKELETAL: No cyanosis, or edema. BACK: Nontender without obvious deformity. No CVA tenderness. Insight and judgment is limited Mood and behavior somewhat appropriate Medications and IVs Current Medications Sodium Chloride 1,000 ml @ 1,000 mls/hr Q1H ONCE IV Last administered on at 21:34; Start 12/17/17 at 20:30; Stop 12/17/17 at 21:29; Status DC Morphine Sulfate (Morphine Inj) 4 mg ONCE ONCE IV PUSH Last administered on at 21:39; Start 12/17/17 at 20:30; Stop 12/17/17 at 20:33; Status DC Metoclopramide HCl (Reglan Inj) 5 mg ONCE ONCE IV PUSH Last administered on at 21:35; Start 12/17/17 at 20:30; Stop 12/17/17 at 20:33; Status DC Sodium Chloride 1,000 ml @ 1,000 mls/hr Q1H ONCE IV Last administered on at 22:43; Start 12/17/17 at 21:30; Stop 12/17/17 at 22:29; Status DC Sodium Chloride 1,000 ml @ 250 mls/hr Q4H IV Last administered on 12/18/17at 05 :57; Start 12/17/17 at 21:23; Stop 12/18/17 at 15:52; Status DC Dextrose/Sodium Chloride 1,000 ml @ 200 mls/hr Q5H IV Last administered on at 08:24; Start 12/17/17 at 21:23; Stop 12/18/17 at 15:49; Status DC Insulin Human Regular (NovoLIN R INJ) 8 units BOLUS ONCE IV PUSH Last administered on 12/17/17at 22:44; Start 12/17/17 at 21:30; Stop 12/17/17 at 21:41 ; Status DC Insulin Human Regular 100 units/ Sodium Chloride 100 ml @ 8 mls/hr TITRATE PRN IV Blood Sugar Management Last administered on 12/18/17at 10:03; Start 12/17/17 at 21:30; Stop 12/19/17 at 02:17; Status DC Potassium Chloride 100 ml @ 100 mls/hr Q1H PRN IV SEE LABEL COMMENTS; Start at 21:30; Stop 12/19/17 at 02:22; Status DC Potassium Chloride 100 ml @ 50 mls/hr Q2H PRN IV SEE LABEL COMMENTS; Start at 21:30; Stop 12/19/17 at 02:22; Status DC Potassium Chloride 100 ml @ 100 mls/hr Q1H PRN IV SEE LABEL COMMENTS Last administered on 12/18/17at 16:40; Start 12/17/17 at 21:30; Stop 12/19/17 at 02:22 ; Status DC Potassium Chloride 100 ml @ 100 mls/hr Q1H PRN IV SEE LABEL COMMENTS; Start at 21:30; Stop 12/19/17 at 02:22; Status DC Potassium Chloride 100 ml @ 50 mls/hr Q2H PRN IV SEE LABEL COMMENTS; Start at 21:30; Stop 12/19/17 at 02:22; Status DC Potassium Chloride 100 ml @ 50 mls/hr Q2H PRN IV SEE LABEL COMMENTS; Start at 21:30; Stop 12/19/17 at 02:22; Status DC Potassium Chloride 100 ml @ 50 mls/hr Q2H PRN IV SEE LABEL COMMENTS Last administered on 12/19/17at 00:47; Start 12/17/17 at 21:30; Stop 12/19/17 at 02:22 ; Status DC Potassium Chloride 100 ml @ 50 mls/hr Q2H PRN IV SEE LABEL COMMENTS; Start at 21:30; Stop 12/19/17 at 02:22; Status DC Sodium Bicarbonate (Sodium Bicarbonate 8.4% Inj) 100 meq UNSCH PRN IV PUSH SEE LABEL COMMENTS; Start 12/17/17 at 21:30; Stop 12/19/17 at 02:22; Status DC Sodium Bicarbonate (Sodium Bicarbonate 8.4% Inj) 50 meq UNSCH PRN IV PUSH SEE LABEL COMMENTS; Start 12/17/17 at 21:30; Stop 12/19/17 at 02:22; Status DC Sodium Phosphate 15 mmol/Sodium Chloride 105 ml @ 25 mls/hr UNSCH PRN IV SEE LABEL COMMENTS; Start 12/17/17 at 21:30; Stop 12/19/17 at 02:22; Status DC Piperacillin Sod/ Tazobactam Sod 50 ml @ 100 mls/hr ONCE ONCE IV Last administered on 12/18/17at 00:22; Start 12/17/17 at 23:15; Stop 12/17/17 at 23:44 ; Status DC Vancomycin HCl 1000 mg/Sodium Chloride 250 ml @ 250 mls/hr ONCE ONCE IV Last administered on 12/18/17at 02:57; Start 12/17/17 at 23:15; Stop 12/18/17 at 00:14 ; Status DC Sodium Chloride (NS Flush) 2 ml UNSCH PRN IV FLUSH FLUSH AFTER USING IV ACCESS ; Start 12/17/17 at 23:15 Sodium Chloride (NS Flush) 2 ml BID IV FLUSH Last administered on 12/23/17at 08: 22; Start 12/18/17 at 09:00 Acetaminophen (Tylenol) 650 mg Q6H PRN PO PAIN 1-10 AND/OR FEVER >101F; Start 12/17/17 at 23:15 Pantoprazole Sodium (Protonix) 40 mg DAILY PO Last administered on 12/23/17at 08 :21; Start 12/18/17 at 09:00 Ondansetron HCl (Zofran Odt) 4 mg Q6H PRN PO NAUSEA OR VOMITING Last administered on 12/21/17at 18:21; Start 12/17/17 at 23:45 Albuterol/ Ipratropium (Duoneb Neb) 1 ampule Q2HR NEB PRN INH WHEEZING; Start 12/17/17 at 23:15 Miscellaneous Information ([facility] Nursing Information) 1 Q361D XX Last administered on 12/18/17at 02:57; Start 12/17/17 at 23:15 Chlorhexidine Gluconate (Chlorhexidine 2% Cloth) Taper DAILY@04 TOP Last administered on 12/21/17at 04:00; Start 12/18/17 at 04:00; Stop 12/14/18 at 03:59 Chlorhexidine Gluconate (Chlorhexidine 2% Cloth) 3 pack UNSCH PRN TOP HYGIENIC CARE; Start 12/17/17 at 23:15 Senna/Docusate Sodium (Debi-Colace) 1 tab BID PO Last administered on at 08:21; Start 12/18/17 at 09:00; Stop 12/23/17 at 09:07; Status DC Magnesium Hydroxide (Milk Of Magnesia Liq) 30 ml Q12H PRN PO Mild constipation ; Start 12/17/17 at 23:15 Sennosides (Senokot) 17.2 mg Q12H PRN PO Moderate constipation; Start 12/17/17 at 23:15 Bisacodyl (Dulcolax Supp) 10 mg DAILY PRN RECTAL SEVERE CONSITIPATION; Start at 23:15 Lactulose (Lactulose Liq) 30 ml DAILY PRN PO SEVERE CONSITIPATION; Start at 23:15 Piperacillin Sod/ Tazobactam Sod 50 ml @ 100 mls/hr Q8H IV Last administered on 12/21/17at 08:38; Start 12/18/17 at 08:00; Stop 12/21/17 at 14:54; Status DC Iron Sucrose 100 mg/Sodium Chloride 105 ml @ 105 mls/hr DAILY IV Last administered on 12/19/17at 09:01; Start 12/18/17 at 09:00; Stop 12/19/17 at 09:46 ; Status DC Vitamin B Complex/ Vit C/Folic Acid (Nephrocaps) 1 cap DAILY PO Last administered on 12/23/17at 08:20; Start 12/18/17 at 09:00 Oxycodone/ Acetaminophen (Percocet 5-325 Mg) 1 tab Q4H PRN PO pain scale 3-10 Last administered on 12/23/17at 08:30; Start 12/18/17 at 02:30 Sodium Bicarbonate 100 meq/Sterile Water 1,000 ml @ 75 mls/hr [id number] IV ; Start 12/18/17 at 11:00; Stop 12/18/17 at 11:02; Status DC Mineral Oil (Fleet Mineral Oil Enema) 118 ml DAILY RECTAL ; Start 12/18/17 at 11 :30 Mineral Oil (Fleet Mineral Oil Enema) 118 ml DAILY RECTAL ; Start 12/18/17 at 09 :45; Status UNV Sodium Chloride 1,000 ml @ 84 mls/hr [id number] IV ; Start 12/18/17 at 11:15; Stop 12/18/17 at 15:14; Status DC Dextrose 1,000 ml @ 150 mls/hr Q6H40M IV Last administered on 12/18/17at 21:50 ; Start 12/18/17 at 16:00; Stop 12/19/17 at 05:24; Status DC Miscellaneous Information (MISC DC previous DKA orders) 1 ONCE ONCE .XX Last administered on 12/19/17at 02:15; Start 12/19/17 at 02:15; Stop 12/19/17 at 02:18 ; Status DC Miscellaneous Information (Misc DC Insulin 2 hrs post Levemir) 1 ONCE ONCE .XX Last administered on 12/19/17at 02:15; Start 12/19/17 at 02:15; Stop 12/19/17 at 02:18; Status DC Dextrose (D50w (Vial) Inj) 50 ml UNSCH PRN IV PUSH HYPOGLYCEMIA-SEE COMMENTS; Start 12/19/17 at 02:15 Glucagon (Glucagon Inj) 1 mg UNSCH PRN OTHER HYPOGLYCEMIA-SEE COMMENTS; Start 12/19/17 at 02:15; Stop 12/19/17 at 02:22; Status DC Insulin Human NPH (NovoLIN N INJ) 15 units BID@08,17 SQ Last administered on at 08:22; Start 12/19/17 at 08:00 Insulin Human NPH (NovoLIN N INJ) 15 units ONCE ONCE SQ Last administered on at 02:57; Start 12/19/17 at 02:15; Stop 12/19/17 at 02:19; Status DC Insulin Human Regular 100 units/ Sodium Chloride 100 ml @ 8 mls/hr TITRATE PRN IV Blood Sugar Management; Start 12/19/17 at 02:30; Stop 12/19/17 at 04:15; Status DC Insulin Aspart (NovoLOG SUPPLEMENTAL SCALE) 1 ACHS SQ Last administered on 12/23at 12:00; Start 12/19/17 at 08:00 Dextrose (D50w (Vial) Inj) 25 ml UNSCH PRN IV HYPOGLYCEMIA-SEE COMMENTS; Start 12/19/17 at 02:30; Stop 12/19/17 at 02:30; Status DC Glucagon (Glucagon Inj) 1 mg UNSCH PRN IM/SQ HYPOGLYCEMIA-SEE COMMENTS; Start 12/19/17 at 02:30 Sodium Chloride 1,000 ml @ 150 mls/hr Q6H40M IV Last administered on at 05:39; Start 12/19/17 at 06:00; Stop 12/19/17 at 09:51; Status DC Sodium Bicarbonate 150 meq/Sterile Water 1,000 ml @ 45 mls/hr [id number] IV Last administered on 12/23/17at 05:40; Start 12/19/17 at 10:00 Duloxetine HCl (Cymbalta Dr) 30 mg DAILY PO Last administered on 12/21/17at 08: 39; Start 12/20/17 at 15:00 Senna/Docusate Sodium (Debi-Colace) 2 tab ONCE ONCE PO Last administered on at 18:42; Start 12/20/17 at 18:00; Stop 12/20/17 at 18:20; Status DC Magnesium Hydroxide (Milk Of Magnesia Liq) 30 ml ONCE ONCE PO Last administered on 12/20/17at 18:42; Start 12/20/17 at 18:00; Stop 12/20/17 at 18:20 ; Status DC Levofloxacin (Levaquin) 750 mg ONCE ONCE PO ; Start 12/21/17 at 16:00; Stop at 16:01; Status DC Levofloxacin (Levaquin) 500 mg Q48H PO ; Start 12/23/17 at 16:00 Senna/Docusate Sodium (Debi-Colace) 2 tab ONCE ONCE PO ; Start 12/22/17 at 08: 45; Stop 12/22/17 at 08:55; Status DC Magnesium Hydroxide (Milk Of Magnesia Liq) 30 ml ONCE ONCE PO ; Start 12/22/17 at 08:45; Stop 12/22/17 at 08:55; Status DC Senna/Docusate Sodium (Debi-Colace) 1 tab BID PO ; Start 12/22/17 at 09:00 Sodium Chloride 500 ml @ 500 mls/hr BOLUS ONCE IV Last administered on at 03:16; Start 12/23/17 at 03:00; Stop 12/23/17 at 03:59; Status DC Sodium Chloride 500 ml @ 500 mls/hr BOLUS ONCE IV Last administered on at 05:08; Start 12/23/17 at 05:00; Stop 12/23/17 at 05:59; Status DC Magnesium Oxide (Mag-Ox) 400 mg ONCE ONCE PO Last administered on 12/23/17at 07 :01; Start 12/23/17 at 06:00; Stop 12/23/17 at 06:01; Status DC A/P Assessment and Plan // Sepsis secondary to gram-negative UTI, slowly improving //UTI //Gram-negative bacteremia. Klebsiella = Continue antibiotics. Repeat cultures. Consult infectious disease. = White blood cell count trending down 16.7. Continue on antibiotics as per ID. Can take levofloxacin to complete treatment course. // DKA -blood glucose improved, but hydroxybutyrate normalized = Resolved, however poor by mouth intake. Continue IV fluids and insulin siding scale. //Pelvic mass with impaction. Continue laxatives. Gynecology/oncology following. Appreciate assistance. //SANDY on CKD: Creatinine stable. Nephrology following. Continue to monitor. = Improving. Continue IV fluids-- encourage p.o. intake. //Hypertension blood pressure acceptable. Continue to monitor. //Anion gap metabolic acidosis -likely related to renal failure, lactic acid normal, beta hydroxybutyrate normal //Nonanimal gap metabolic acidosis = Continue IV fluid // Severe anemia -required 1 unit of PRBC transfusion = Hemoglobin 8.2 stable. Continue to monitor. Discharge Planning continue inpatient management. PT and OT consulted. If blood cultures -72 hours, patient can be discharged on Levaquin to complete treatment course as per ID. We will need to continue Sheikh for several weeks with follow-up urology. Can follow-up as outpatient undergo surgery by Dr. Quick around January 08. Follow-up PT/OT consult Discharge Planning Will need SNF AT discharge Hernandez Amaya DO Dec 23, 2017 14:15
[2017-12-23] MEDS: LEVOFLOXACIN 500 MG TAB PO SCH (16:04)
[2017-12-24] VITALS (9 sets, daily range): BP systolic 152–177; BP diastolic 79–93; PULSE 90–110; RESP 16–20; TEMP 97.2–98.7; O2SAT 96–99
[2017-12-24] MEDS: oxyCODONE/ACETAMINOPHEN 5 MG/325 MG TAB PO PRN ×5 (00:32→23:52)
[2017-12-24] MEDS: SODIUM CHLOR 0.9% 1000 ML INJ 1,000 ML IV SCH ×3 (00:32→23:44)
[2017-12-24] MEDS: SODIUM BICARBONATE 8.4% INJ 150 MEQ in WATER STERILE FOR INJ 850 ML IV SCH (00:34)
[2017-12-24] MEDS ORDERED: ALUMINUM/MAGNESIUM/SIMETH 30 ML CUP PO PRN (01:30)
[2017-12-24] MEDS: CALCIUM CARBONATE 500 MG CHEWABLE TAB CHEW PRN ×3 (01:35→18:12)
[2017-12-24] MEDS: CHLORHEXIDINE GLUCONATE 2 % 1 PACK (2 CLOTHS) TOP SCH ×2 (04:00→23:52)
--- NOTE | 2017-12-24 06:24 | RADRPT ---
EXAM DATE: 12/24/2017 6:16 AM EDT AGE/SEX: 57 years / Female INDICATIONS: Short of breath, evaluate pneumonia CLINICAL DATA: This is the patient's subsequent encounter. Patient reports that signs and symptoms h ave been present for 4 - 6 days and indicates a pain score of 0/10. MEDICAL/SURGICAL HISTORY: Diabetes mellitus type II. Hypertension. ulcer on foot None. COMPARISON: [facility] [place], CHEST SINGLE AP, 12/18/2017. . FINDINGS: A single AP view of the chest demonstrates the lungs to be symmetrically aerated without evidence of mass, infiltrate or effusion. The cardiomediastinal contours are unremarkable. Osseous structures a re intact. CONCLUSION: No acute cardiopulmonary process. Electronically signed by: Sukhwinder Freeman MD 12/24/2017 6:23 AM EDT
[2017-12-24] MEDS: INSULIN HUMAN NPH 1,000 UNITS/10 ML VIAL SQ SCH ×2 (08:00→18:11)
--- NOTE | 2017-12-24 08:14 | PD.ONC.PN ---
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 patient sleeping awakens to voice, no complaints per medicine note: pt will discharged to SNF will follow up with washer assembler/onc as outpt as [facility]OY D&C is scheduled for January 08 Objective Data Date Time Temp Pulse Resp B/P (MAP) Pulse Ox O2 Delivery O2 Flow Rate FiO2 12/24/17 04:30 98.2 100 18 163/88 (113) 96 12/24/17 04:00 96 12/24/17 00:00 105 12/24/17 00:00 98.2 97 20 158/80 (106) 98 12/23/17 21:15 162/79 (106) 12/23/17 20:00 98.5 102 18 180/84 (116) 95 12/23/17 20:00 95 Room Air 12/23/17 20:00 98.5 102 18 180/84 (116) 95 12/23/17 20:00 100 12/23/17 16:00 98.2 102 18 173/78 (109) 100 12/23/17 12:00 98.2 104 18 157/77 (103) 95 12/24/17 12/24/17 12/24/17 07:00 15:00 23:00 Intake Total 1227 ml Output Total 3850 ml Balance -2623 ml Result Diagram: 12/23/1731612/23/17 0317 Imaging Studies Last 24 hours Impressions Chest X-Ray 12/24/17 0600 Signed Impressions: CONCLUSION: No acute cardiopulmonary process. Administered Medications Medications (Trade) Dose Ordered Sig/Elroy Route PRN Reason Start Time Stop Time Status Last Admin Dose Admin Sodium Chloride (NS Flush) 2 ml BID IV FLUSH 12/18/17 09:00 12/23/17 08:22 Pantoprazole Sodium (Protonix) 40 mg DAILY PO 12/18/17 09:00 12/23/17 08:21 Ondansetron HCl (Zofran Odt) 4 mg Q6H PRN PO NAUSEA OR VOMITING 12/17/17 23:45 12/21/17 18:21 Miscellaneous Information ([facility] [place] 1 Q361D XX 12/17/17 23:15 12/18/17 02:57 Chlorhexidine Gluconate (Chlorhexidine 2% Cloth) Taper DAILY@04 TOP 12/18/17 04:00 12/14/18 03:59 12/21/17 04:00 Vitamin B Complex/ Vit C/Folic Acid (Nephrocaps) 1 cap DAILY PO 12/18/17 09:00 12/23/17 08:20 Oxycodone/ Acetaminophen (Percocet 5-325 Mg) 1 tab Q4H PRN PO pain scale 3-10 12/18/17 02:30 12/24/17 00:32 Insulin Human NPH (NovoLIN N INJ) 15 units BID@08,17 SQ 12/19/17 08:00 12/23/17 17:40 Insulin Aspart (NovoLOG SUPPLEMENTAL SCALE) 1 ACHS SQ 12/19/17 08:00 12/23/17 17:00 Sodium Bicarbonate 150 meq/Sterile Water 1,000 ml @ 45 mls/hr [id number] IV 12/19/17 10:00 12/24/17 00:34 Duloxetine HCl (Cymbalta Dr) 30 mg DAILY PO 12/20/17 15:00 12/21/17 08:39 Levofloxacin (Levaquin) 500 mg Q48H PO 12/23/17 16:00 12/23/17 16:04 Senna/Docusate Sodium (Debi-Colace) 1 tab BID PO 12/22/17 09:00 12/23/17 20:22 Sodium Chloride 1,000 ml @ 84 mls/hr [id number] IV 12/23/17 14:15 12/24/17 00:32 Al Hydrox/Mg Hydrox/Simethicone (Mag-Al Plus Susp Liq) 30 ml Q6H PRN PO DYSPEPSIA OR HEARTBURN 12/24/17 01:30 12/24/17 01:35 Calcium Carbonate (Tums Chew) 500 mg Q6H PRN CHEW DYSPEPSIA OR HEARTBURN 12/24/17 01:30 12/24/17 01:35 Objective Remarks GENERAL: Well-nourished, well-developed patient. SKIN: Warm and dry. HEAD: Normocephalic. EYES: No scleral icterus. No injection or drainage. NECK: Supple CARDIOVASCULAR: Regular rate and rhythm without murmurs. RESPIRATORY: Breath sounds equal bilaterally. No accessory muscle use. MUSCULOSKELETAL: Adequate muscle tone. NEUROLOGICAL: No obvious focal deficit. Assessment/Plan Problem List: (1) Adnexal mass ICD Codes: N94.9 - Unspecified condition associated with female genital organs and menstrual cycle Status: Acute Plan: planned for outpatient EUA, D&C once she is medically cleared...scheduled for January 08, 2018 patient will be discharged to SNF will continue ABX per ID will continue Melissa Banks Dec 24, 2017 08:14
[2017-12-24] MEDS: SIMETHICONE 80 MG CHEWABLE TAB CHEW PRN ×3 (08:48→23:56)
[2017-12-24] MEDS: ONDANSETRON ODT 4 MG TAB PO PRN (08:48)
[2017-12-24] MEDS: INSULIN ASPART SUPPLEMENTAL SCALE SQ SCH ×4 (08:51→23:51)
[2017-12-24] MEDS: DOCUSATE SODIUM 50 MG/SENNA 8.6 MG TAB PO SCH ×2 (08:52→21:00)
[2017-12-24] MEDS: SODIUM CHLORIDE 0.9% FLUSH 10 ML FLUSH IV FLUSH SCH ×2 (08:52→23:44)
[2017-12-24] MEDS: PANTOPRAZOLE SOD 40 MG DELAYED RELEASE TAB PO SCH (08:52)
[2017-12-24] MEDS: VITAMIN B CMPLX/VITC/FOLIC AC CAP PO SCH (08:53)
[2017-12-24] MEDS: DULoxetine HCl DR 30 MG CAP PO SCH (08:56)
[2017-12-24] MEDS: MINERAL OIL ENEMA 118 ML BTL RECTAL SCH (09:00)
[2017-12-24 09:51] LABS: BASOPHIL # 0.1 TH/MM3 (0-0.2); BASOPHIL % 0.5 % (0.0-2.0); EOSINOPHIL # 0.2 TH/MM3 (0-0.4); EOSINOPHIL % 1.3 % (0.0-4.0); HEMOGLOBIN 8.8 GM/DL (11.6-15.3); LYMPH % 10.3 % (9.0-44.0); LYMPHOCYTE # 1.9 TH/MM3 (1.0-4.8); MEAN CELL VOLUME 70.7 FL (80.0-100.0); MEAN CORPUSCULAR HEMOGLOBIN 22.3 PG (27.0-34.0); MEAN CORPUSCULAR HGB CONC 31.5 % (32.0-36.0); MEAN PLATELET VOLUME 7.5 FL (7.0-11.0); MONO % 5.6 % (0.0-8.0); NEUT % 82.3 % (16.0-70.0); PLATELET COUNT 462 TH/MM3 (150-450); RED BLOOD COUNT 3.96 MIL/MM3 (4.00-5.30); RED CELL DISTRIBUTION WIDTH 17.8 % (11.6-17.2); WHITE BLOOD COUNT 18.3 TH/MM3 (4.0-11.0)
[2017-12-24 10:32] LABS: LYMPHOCYTES 9 % (9-44); MONOCYTES 3 % (0-8); MYELOCYTES 2 % (0-0); NEUTROPHIL # MANUAL DIFF 16.1 TH/MM3 (1.8-7.7); POLYS (SEG NEUTROPHILS) 86 % (16-70)
[2017-12-24 10:33] LABS: TARGET CELLS 1+ (NORMAL)
[2017-12-24 12:22] LABS: ALBUMIN 1.9 GM/DL (3.4-5.0); ALKALINE PHOSPHATASE 483 U/L (45-117); ALT (GPT) 45 U/L (10-53); AST (GOT) 51 U/L (15-37); BICARBONATE 31.2 MEQ/L (21.0-32.0); BLOOD UREA NITROGEN 29 MG/DL (7-18); CALCIUM 8.6 MG/DL (8.5-10.1); CHLORIDE 99 MEQ/L (98-107); CREATININE 2.34 MG/DL (0.50-1.00); GLOMERULAR FILTRATION RATE 26 ML/MIN (>89); GLUCOSE,RANDOM 174 MG/DL (74-106); MAGNESIUM 1.6 MG/DL (1.5-2.5); PHOSPHORUS 2.3 MG/DL (2.5-4.9); SODIUM (NA) 139 MEQ/L (136-145); TOTAL BILIRUBIN ADULT 0.8 MG/DL (0.2-1.0); TOTAL PROTEIN 6.8 GM/DL (6.4-8.2)
--- NOTE | 2017-12-24 14:11 | HHI.PR ---
Subjective Remarks The patient is a 57 year old female who presents to the [facility] emergency department with a history of reportedly feeling unwell since Sunday. She reports that she has had nausea and vomiting since Sunday. She has vomited in total 3 times on 12/17. She denies having bilious vomit. She denies having any hematemesis. She reports that she has been moving her bowels daily, however she does have a problem with constipation and is using a stool softener. She denies having any blood in her stool or black or tarry stools. She reports that she is planning to have a D&C soon done by Dr. Samano. She is unsure why. The patient reports that since August she has also been self cathing, however she is unsure why she is unable to completely evacuate her bladder. She reports that she was told that she would need a catheter, however she refused and instead is self cathing. The patient reports having generalized abdominal pain that she has difficulty describing the character of or any other details regarding the abdominal pain. Unfortunately, the patient is a poor historian. The patient reports that her primary care physician is Dr. Hernandez. She has not seen Dr. Hernandez since August. She reports that she does have home health that comes out. She reports that in August her primary care physician discontinued her diabetic medication for unknown reason. Ambulance services brought the patient in the reports that her blood sugar was critically high prior to arrival. The patient was started on normal saline IV fluids and transported to this facility. She denies having any known recent fevers, cough or congestion, neck pain, chest pain, shortness of breath, or neurologic symptoms. The patient incidentally also reports that she was diagnosed with a urinary tract infection on November 28, however Dr. Hernandez has not started her on antibiotic yet. Patient stated that she was brought to the ER by [facility] due to progressive generalized weakness. She was noted to have a fingerstick glucose in the 1000 range and blood glucose in the ER was in the 700s with a metabolic acidosis. Patient was started on DKA protocol by ER physician. She was noted to have a leukocytosis and cloudy urine with suspicion of a UTI hence after obtaining cultures she was initiated on IV Zosyn and received a dose of vancomycin in the ER. When I evaluated the patient she was resting in bed comfortably and denies any chest pain shortness of breath nausea, palpitations. 12/19: Over the night her anion gap closed and she was transitioned to subcutaneous insulin despite low bicarb. T-max of 98.6. I/O 4553/1650. She is awake, alert, complains of back pain, denies any nausea or vomiting, chest pain, palpitations. She states that she had a bowel movement over the night. 12/20. Patient says she is feeling all right. Denies any pain. Somnolent, wakes up for exam. 12/22. Patient says she is feeling all right. Denies any chest pain or shortness of breath. Denies any nausea or vomiting. 12-23 HAD ISSUES WITH TACHYCARDIA LAST NIGHT AND ELECTROLYTE ISSUES DW RN AND PT AND FAMILY WILL NEED SNF AT ID CONTINUE IV FLUIDS- RENAL FUNCTIONS IMPROVING 12-24 REPLACE POTASSIUM RENAL FUNCTIONS IMPROVING ON IV FLUIDS AM LABS DW RN AND PT AND CM WILL NEED SNF WILL NEED AT DC FOLLOW UP WITH DIRECTOR OF DIGITAL PLATFORMS ONC AND UROLOGY AT ID HOPEFULLY TO SNF NEXT 24 TO 48 HOURS Objective Vitals Vital Signs Date Time Temp Pulse Resp B/P (MAP) Pulse Ox O2 Delivery O2 Flow Rate FiO2 12/24/17 08:57 97.8 110 16 177/93 (121) 99 12/24/17 04:30 98.2 100 18 163/88 (113) 96 12/24/17 04:00 96 12/24/17 00:00 105 12/24/17 00:00 98.2 97 20 158/80 (106) 98 12/23/17 21:15 162/79 (106) 12/23/17 20:00 98.5 102 18 180/84 (116) 95 12/23/17 20:00 95 Room Air 12/23/17 20:00 98.5 102 18 180/84 (116) 95 12/23/17 20:00 100 12/23/17 16:00 98.2 102 18 173/78 (109) 100 I/O 12/23/17 12/23/17 12/23/17 12/24/17 12/24/17 12/24/17 07:00 15:00 23:00 07:00 15:00 23:00 Intake Total 1000 ml 1454 ml 1227 ml Output Total 4650 ml 3850 ml Balance 1000 ml -3196 ml -2623 ml Intake Oral 960 ml 480 ml IV Total 1000 ml 494 ml 747 ml Output Urine Total 4650 ml 3850 ml # Bowel Movements 1 Result Diagram: 12/24/17 0850 12/24/17 0850 Other Results Laboratory Tests Test 12/22/17 04:43 12/23/17 03:17 12/24/17 08:50 White Blood Count 16.7 TH/MM3 16.7 TH/MM3 18.3 TH/MM3 Red Blood Count 3.67 MIL/MM3 3.85 MIL/MM3 3.96 MIL/MM3 Hemoglobin 8.2 GM/DL 8.5 GM/DL 8.8 GM/DL Hematocrit 25.1 % 26.5 % 28.0 % Mean Corpuscular Volume 68.3 FL 68.7 FL 70.7 FL Mean Corpuscular Hemoglobin 22.2 PG 22.2 PG 22.3 PG Mean Corpuscular Hemoglobin Concent 32.6 % 32.2 % 31.5 % Red Cell Distribution Width 17.6 % 17.9 % 17.8 % Platelet Count 396 TH/MM3 419 TH/MM3 462 TH/MM3 Mean Platelet Volume 7.7 FL 7.2 FL 7.5 FL Neutrophils (%) (Auto) 76.2 % 78.4 % 82.3 % Lymphocytes (%) (Auto) 16.2 % 12.5 % 10.3 % Monocytes (%) (Auto) 6.0 % 7.2 % 5.6 % Eosinophils (%) (Auto) 1.0 % 1.5 % 1.3 % Basophils (%) (Auto) 0.6 % 0.4 % 0.5 % Neutrophils # (Auto) 12.8 TH/MM3 13.1 TH/MM3 15.0 TH/MM3 Lymphocytes # (Auto) 2.7 TH/MM3 2.1 TH/MM3 1.9 TH/MM3 Monocytes # (Auto) 1.0 TH/MM3 1.2 TH/MM3 1.0 TH/MM3 Eosinophils # (Auto) 0.2 TH/MM3 0.2 TH/MM3 0.2 TH/MM3 Basophils # (Auto) 0.1 TH/MM3 0.1 TH/MM3 0.1 TH/MM3 CBC Comment AUTO DIFF AUTO DIFF AUTO DIFF Differential Total Cells Counted 100 100 100 Neutrophils % (Manual) 74 % 78 % 86 % Band Neutrophils % 5 % 5 % Lymphocytes % 11 % 8 % 9 % Monocytes % 6 % 4 % 3 % Eosinophils % 1 % 2 % Neutrophils # (Manual) 13.7 TH/MM3 14.4 TH/MM3 16.1 TH/MM3 Myelocytes 3 % 1 % 2 % Differential Comment FINAL DIFF MANUAL FINAL DIFF MANUAL FINAL DIFF MANUAL Platelet Estimate NORMAL NORMAL NORMAL Platelet Morphology Comment NORMAL NORMAL NORMAL Target Cells 2+ 1+ 1+ Ovalocytes 1+ Blood Urea Nitrogen 49 MG/DL 40 MG/DL 29 MG/DL Creatinine 3.59 MG/DL 2.90 MG/DL 2.34 MG/DL Random Glucose 130 MG/DL 127 MG/DL 174 MG/DL Total Protein 6.6 GM/DL 6.8 GM/DL Albumin 1.6 GM/DL 1.8 GM/DL 1.9 GM/DL Calcium Level 8.7 MG/DL 8.3 MG/DL 8.6 MG/DL Phosphorus Level 3.6 MG/DL 3.2 MG/DL 2.3 MG/DL Magnesium Level 2.0 MG/DL 1.6 MG/DL 1.6 MG/DL Alkaline Phosphatase 474 U/L 483 U/L Aspartate Amino Transf (AST/SGOT) 19 U/L 51 U/L Alanine Aminotransferase (ALT/SGPT) 23 U/L 45 U/L Total Bilirubin 1.1 MG/DL 0.8 MG/DL Sodium Level 141 MEQ/L 140 MEQ/L 139 MEQ/L Potassium Level 3.7 MEQ/L 3.7 MEQ/L 3.4 MEQ/L Chloride Level 99 MEQ/L 97 MEQ/L 99 MEQ/L Carbon Dioxide Level 33.0 MEQ/L 34.1 MEQ/L 31.2 MEQ/L Anion Gap 9 MEQ/L 9 MEQ/L 9 MEQ/L Estimat Glomerular Filtration Rate 16 ML/MIN 20 ML/MIN 26 ML/MIN Metamyelocytes 2 % Basophilic Stippling FAINT Spherocytes OCC Imaging Last Impressions Chest X-Ray 12/24/17 0600 Signed Impressions: CONCLUSION: No acute cardiopulmonary process. Abdomen X-Ray 12/20/17 0000 Signed Impressions: CONCLUSION: 1. Linear air-like density paralleling the left lateral wall of the urinary bl adder. This is likely within the wall as opposed to the lumen. This raises conc chantal for acute cystitis. Abdomen/Pelvis CT 12/17/17 2207 Signed Impressions: CONCLUSION: 1. Markedly distended bladder with mild to moderate bilateral hydronephrosis. 2. Rectal impaction measuring up to 8.5 cm in diameter. 3. Lobulated mass in left adnexal region extending into left lower quadrant si milar in appearance to August and October 2017. Cannot exclude a slow growing ovaria n neoplasm. Objective Remarks GENERAL: Patient lying in bed on left side. Sleeping, wakes up for exam. Appears comfortable. SKIN: Warm and dry. HEAD: Normocephalic. EYES: No scleral icterus. No injection or drainage. NECK: Supple, trachea midline. No JVD. CARDIOVASCULAR: Regular rate and rhythm without murmurs, gallops, or rubs. RESPIRATORY: Breath sounds equal bilaterally. No accessory muscle use. GASTROINTESTINAL: Abdomen slightly distended. Tender to moderate palpation. No rebound or guarding. MUSCULOSKELETAL: No cyanosis, or edema. BACK: Nontender without obvious deformity. No CVA tenderness. Insight and judgment is limited Mood and behavior somewhat appropriate Medications and IVs Current Medications Sodium Chloride 1,000 ml @ 1,000 mls/hr Q1H ONCE IV Last administered on at 21:34; Start 12/17/17 at 20:30; Stop 12/17/17 at 21:29; Status DC Morphine Sulfate (Morphine Inj) 4 mg ONCE ONCE IV PUSH Last administered on at 21:39; Start 12/17/17 at 20:30; Stop 12/17/17 at 20:33; Status DC Metoclopramide HCl (Reglan Inj) 5 mg ONCE ONCE IV PUSH Last administered on at 21:35; Start 12/17/17 at 20:30; Stop 12/17/17 at 20:33; Status DC Sodium Chloride 1,000 ml @ 1,000 mls/hr Q1H ONCE IV Last administered on at 22:43; Start 12/17/17 at 21:30; Stop 12/17/17 at 22:29; Status DC Sodium Chloride 1,000 ml @ 250 mls/hr Q4H IV Last administered on 12/18/17at 05 :57; Start 12/17/17 at 21:23; Stop 12/18/17 at 15:52; Status DC Dextrose/Sodium Chloride 1,000 ml @ 200 mls/hr Q5H IV Last administered on at 08:24; Start 12/17/17 at 21:23; Stop 12/18/17 at 15:49; Status DC Insulin Human Regular (NovoLIN R INJ) 8 units BOLUS ONCE IV PUSH Last administered on 12/17/17at 22:44; Start 12/17/17 at 21:30; Stop 12/17/17 at 21:41 ; Status DC Insulin Human Regular 100 units/ Sodium Chloride 100 ml @ 8 mls/hr TITRATE PRN IV Blood Sugar Management Last administered on 12/18/17at 10:03; Start 12/17/17 at 21:30; Stop 12/19/17 at 02:17; Status DC Potassium Chloride 100 ml @ 100 mls/hr Q1H PRN IV SEE LABEL COMMENTS; Start at 21:30; Stop 12/19/17 at 02:22; Status DC Potassium Chloride 100 ml @ 50 mls/hr Q2H PRN IV SEE LABEL COMMENTS; Start at 21:30; Stop 12/19/17 at 02:22; Status DC Potassium Chloride 100 ml @ 100 mls/hr Q1H PRN IV SEE LABEL COMMENTS Last administered on 12/18/17at 16:40; Start 12/17/17 at 21:30; Stop 12/19/17 at 02:22 ; Status DC Potassium Chloride 100 ml @ 100 mls/hr Q1H PRN IV SEE LABEL COMMENTS; Start at 21:30; Stop 12/19/17 at 02:22; Status DC Potassium Chloride 100 ml @ 50 mls/hr Q2H PRN IV SEE LABEL COMMENTS; Start at 21:30; Stop 12/19/17 at 02:22; Status DC Potassium Chloride 100 ml @ 50 mls/hr Q2H PRN IV SEE LABEL COMMENTS; Start at 21:30; Stop 12/19/17 at 02:22; Status DC Potassium Chloride 100 ml @ 50 mls/hr Q2H PRN IV SEE LABEL COMMENTS Last administered on 12/19/17at 00:47; Start 12/17/17 at 21:30; Stop 12/19/17 at 02:22 ; Status DC Potassium Chloride 100 ml @ 50 mls/hr Q2H PRN IV SEE LABEL COMMENTS; Start at 21:30; Stop 12/19/17 at 02:22; Status DC Sodium Bicarbonate (Sodium Bicarbonate 8.4% Inj) 100 meq UNSCH PRN IV PUSH SEE LABEL COMMENTS; Start 12/17/17 at 21:30; Stop 12/19/17 at 02:22; Status DC Sodium Bicarbonate (Sodium Bicarbonate 8.4% Inj) 50 meq UNSCH PRN IV PUSH SEE LABEL COMMENTS; Start 12/17/17 at 21:30; Stop 12/19/17 at 02:22; Status DC Sodium Phosphate 15 mmol/Sodium Chloride 105 ml @ 25 mls/hr UNSCH PRN IV SEE LABEL COMMENTS; Start 12/17/17 at 21:30; Stop 12/19/17 at 02:22; Status DC Piperacillin Sod/ Tazobactam Sod 50 ml @ 100 mls/hr ONCE ONCE IV Last administered on 12/18/17at 00:22; Start 12/17/17 at 23:15; Stop 12/17/17 at 23:44 ; Status DC Vancomycin HCl 1000 mg/Sodium Chloride 250 ml @ 250 mls/hr ONCE ONCE IV Last administered on 12/18/17at 02:57; Start 12/17/17 at 23:15; Stop 12/18/17 at 00:14 ; Status DC Sodium Chloride (NS Flush) 2 ml UNSCH PRN IV FLUSH FLUSH AFTER USING IV ACCESS ; Start 12/17/17 at 23:15 Sodium Chloride (NS Flush) 2 ml BID IV FLUSH Last administered on 12/23/17at 08: 22; Start 12/18/17 at 09:00 Acetaminophen (Tylenol) 650 mg Q6H PRN PO PAIN 1-10 AND/OR FEVER >101F; Start 12/17/17 at 23:15 Pantoprazole Sodium (Protonix) 40 mg DAILY PO Last administered on 12/24/17at 08 :52; Start 12/18/17 at 09:00 Ondansetron HCl (Zofran Odt) 4 mg Q6H PRN PO NAUSEA OR VOMITING Last administered on 12/24/17at 08:48; Start 12/17/17 at 23:45 Albuterol/ Ipratropium (Duoneb Neb) 1 ampule Q2HR NEB PRN INH WHEEZING; Start 12/17/17 at 23:15 Miscellaneous Information ([facility] Nursing Information) 1 [id number] XX Last administered on 12/18/17at 02:57; Start 12/17/17 at 23:15 Chlorhexidine Gluconate (Chlorhexidine 2% Cloth) Taper DAILY@04 TOP Last administered on 12/21/17at 04:00; Start 12/18/17 at 04:00; Stop 12/14/18 at 03:59 Chlorhexidine Gluconate (Chlorhexidine 2% Cloth) 3 pack UNSCH PRN TOP HYGIENIC CARE; Start 12/17/17 at 23:15 Senna/Docusate Sodium (Debi-Colace) 1 tab BID PO Last administered on at 08:21; Start 12/18/17 at 09:00; Stop 12/23/17 at 09:07; Status DC Magnesium Hydroxide (Milk Of Magnesia Liq) 30 ml Q12H PRN PO Mild constipation ; Start 12/17/17 at 23:15 Sennosides (Senokot) 17.2 mg Q12H PRN PO Moderate constipation; Start 12/17/17 at 23:15 Bisacodyl (Dulcolax Supp) 10 mg DAILY PRN RECTAL SEVERE CONSITIPATION; Start at 23:15 Lactulose (Lactulose Liq) 30 ml DAILY PRN PO SEVERE CONSITIPATION; Start at 23:15 Piperacillin Sod/ Tazobactam Sod 50 ml @ 100 mls/hr Q8H IV Last administered on 12/21/17at 08:38; Start 12/18/17 at 08:00; Stop 12/21/17 at 14:54; Status DC Iron Sucrose 100 mg/Sodium Chloride 105 ml @ 105 mls/hr DAILY IV Last administered on 12/19/17at 09:01; Start 12/18/17 at 09:00; Stop 12/19/17 at 09:46 ; Status DC Vitamin B Complex/ Vit C/Folic Acid (Nephrocaps) 1 cap DAILY PO Last administered on 12/24/17at 08:53; Start 12/18/17 at 09:00 Oxycodone/ Acetaminophen (Percocet 5-325 Mg) 1 tab Q4H PRN PO pain scale 3-10 Last administered on 12/24/17at 08:52; Start 12/18/17 at 02:30 Sodium Bicarbonate 100 meq/Sterile Water 1,000 ml @ 75 mls/hr [id number] IV ; Start 12/18/17 at 11:00; Stop 12/18/17 at 11:02; Status DC Mineral Oil (Fleet Mineral Oil Enema) 118 ml DAILY RECTAL ; Start 12/18/17 at 11 :30 Mineral Oil (Fleet Mineral Oil Enema) 118 ml DAILY RECTAL ; Start 12/18/17 at 09 :45; Status UNV Sodium Chloride 1,000 ml @ 84 mls/hr [id number] IV ; Start 12/18/17 at 11:15; Stop 12/18/17 at 15:14; Status DC Dextrose 1,000 ml @ 150 mls/hr Q6H40M IV Last administered on 12/18/17at 21:50 ; Start 12/18/17 at 16:00; Stop 12/19/17 at 05:24; Status DC Miscellaneous Information (MISC DC previous DKA orders) 1 ONCE ONCE .XX Last administered on 12/19/17at 02:15; Start 12/19/17 at 02:15; Stop 12/19/17 at 02:18 ; Status DC Miscellaneous Information (Misc DC Insulin 2 hrs post Levemir) 1 ONCE ONCE .XX Last administered on 12/19/17at 02:15; Start 12/19/17 at 02:15; Stop 12/19/17 at 02:18; Status DC Dextrose (D50w (Vial) Inj) 50 ml UNSCH PRN IV PUSH HYPOGLYCEMIA-SEE COMMENTS; Start 12/19/17 at 02:15 Glucagon (Glucagon Inj) 1 mg UNSCH PRN OTHER HYPOGLYCEMIA-SEE COMMENTS; Start 12/19/17 at 02:15; Stop 12/19/17 at 02:22; Status DC Insulin Human NPH (NovoLIN N INJ) 15 units BID@08,17 SQ Last administered on at 08:00; Start 12/19/17 at 08:00 Insulin Human NPH (NovoLIN N INJ) 15 units ONCE ONCE SQ Last administered on at 02:57; Start 12/19/17 at 02:15; Stop 12/19/17 at 02:19; Status DC Insulin Human Regular 100 units/ Sodium Chloride 100 ml @ 8 mls/hr TITRATE PRN IV Blood Sugar Management; Start 12/19/17 at 02:30; Stop 12/19/17 at 04:15; Status DC Insulin Aspart (NovoLOG SUPPLEMENTAL SCALE) 1 ACHS SQ Last administered on 12/24at 12:58; Start 12/19/17 at 08:00 Dextrose (D50w (Vial) Inj) 25 ml UNSCH PRN IV HYPOGLYCEMIA-SEE COMMENTS; Start 12/19/17 at 02:30; Stop 12/19/17 at 02:30; Status DC Glucagon (Glucagon Inj) 1 mg UNSCH PRN IM/SQ HYPOGLYCEMIA-SEE COMMENTS; Start 12/19/17 at 02:30 Sodium Chloride 1,000 ml @ 150 mls/hr Q6H40M IV Last administered on at 05:39; Start 12/19/17 at 06:00; Stop 12/19/17 at 09:51; Status DC Sodium Bicarbonate 150 meq/Sterile Water 1,000 ml @ 45 mls/hr [id number] IV Last administered on 12/24/17at 00:34; Start 12/19/17 at 10:00 Duloxetine HCl (Cymbalta Dr) 30 mg DAILY PO Last administered on 12/21/17at 08: 39; Start 12/20/17 at 15:00 Senna/Docusate Sodium (Debi-Colace) 2 tab ONCE ONCE PO Last administered on at 18:42; Start 12/20/17 at 18:00; Stop 12/20/17 at 18:20; Status DC Magnesium Hydroxide (Milk Of Magnesia Liq) 30 ml ONCE ONCE PO Last administered on 12/20/17at 18:42; Start 12/20/17 at 18:00; Stop 12/20/17 at 18:20 ; Status DC Levofloxacin (Levaquin) 750 mg ONCE ONCE PO ; Start 12/21/17 at 16:00; Stop at 16:01; Status DC Levofloxacin (Levaquin) 500 mg Q48H PO Last administered on 12/23/17at 16:04; Start 12/23/17 at 16:00 Senna/Docusate Sodium (Debi-Colace) 2 tab ONCE ONCE PO ; Start 12/22/17 at 08: 45; Stop 12/22/17 at 08:55; Status DC Magnesium Hydroxide (Milk Of Magnesia Liq) 30 ml ONCE ONCE PO ; Start 12/22/17 at 08:45; Stop 12/22/17 at 08:55; Status DC Senna/Docusate Sodium (Debi-Colace) 1 tab BID PO Last administered on at 08:52; Start 12/22/17 at 09:00 Sodium Chloride 500 ml @ 500 mls/hr BOLUS ONCE IV Last administered on at 03:16; Start 12/23/17 at 03:00; Stop 12/23/17 at 03:59; Status DC Sodium Chloride 500 ml @ 500 mls/hr BOLUS ONCE IV Last administered on at 05:08; Start 12/23/17 at 05:00; Stop 12/23/17 at 05:59; Status DC Magnesium Oxide (Mag-Ox) 400 mg ONCE ONCE PO Last administered on 12/23/17at 07 :01; Start 12/23/17 at 06:00; Stop 12/23/17 at 06:01; Status DC Sodium Chloride 1,000 ml @ 84 mls/hr [id number] IV Last administered on at 00:32; Start 12/23/17 at 14:15 Simethicone (Mylicon Chew) 80 mg PCHS PRN CHEW flatus/gas Last administered on 12/24/17at 13:02; Start 12/24/17 at 01:30 Al Hydrox/Mg Hydrox/Simethicone (Mag-Al Plus Susp Liq) 30 ml Q6H PRN PO DYSPEPSIA OR HEARTBURN Last administered on 12/24/17at 01:35; Start 12/24/17 at 01:30 Calcium Carbonate (Tums Chew) 500 mg Q6H PRN CHEW DYSPEPSIA OR HEARTBURN Last administered on 12/24/17at 13:02; Start 12/24/17 at 01:30 A/P Assessment and Plan // Sepsis secondary to gram-negative UTI, slowly improving //UTI //Gram-negative bacteremia. Klebsiella = Continue antibiotics. Repeat cultures. Consult infectious disease. = White blood cell count trending down 16.7. Continue on antibiotics as per ID. Can take levofloxacin to complete treatment course. // DKA -blood glucose improved, but hydroxybutyrate normalized = Resolved, however poor by mouth intake. Continue IV fluids and insulin siding scale. //Pelvic mass with impaction. Continue laxatives. Gynecology/oncology following. Appreciate assistance. //SANDY on CKD: Creatinine stable. Nephrology following. Continue to monitor. = Improving. Continue IV fluids-- encourage p.o. intake. //Hypertension blood pressure acceptable. Continue to monitor. //Anion gap metabolic acidosis -likely related to renal failure, lactic acid normal, beta hydroxybutyrate normal //Nonanimal gap metabolic acidosis = Continue IV fluid // Severe anemia -required 1 unit of PRBC transfusion = Hemoglobin 8.2 stable. Continue to monitor. Discharge Planning continue inpatient management. PT and OT consulted. If blood cultures -72 hours, patient can be discharged on Levaquin to complete treatment course as per ID. We will need to continue for several weeks with follow-up urology. Can follow-up as outpatient undergo surgery by Dr. Quick around January 08. Follow-up PT/OT consult CONTINUE AT DC CONTINUE FLUIDS REPLACE POTASSIUM DC IN NEXT 24 TO 48 HOURS TO SNF AM LABS Discharge Planning Will need SNF AT discharge Hernandez Amaya DO Dec 24, 2017 14:11
[2017-12-24] MEDS ORDERED: POTASSIUM CHLORIDE 25 MEQ EFFERVESCENT TAB PO ONE ×2 (14:15→16:15)
[2017-12-24] MEDS: CEFEPIME INJ 2,000 MG in SODIUM CHLORIDE 0.9% INJ 100 ML IV SCH (15:43)
--- NOTE | 2017-12-24 16:29 | HHI.NPPN ---
Subjective General Problems: Anemia Renal Failure: Chronic, Acute Additional Remarks Reports poor appetite and has some abdominal tenderness. Creatinine improving at 2.34 today (Meghan Iverson) Review of Systems General Constitutional: Fatigue (Meghan Iverson) Gastrointestinal Gastrointestinal: Abdominal Pain (Meghan Iverson) Musculoskeletal MS: Pain/Stiffness (Meghan Iverson) Objective Data Data Vital Signs Date Time Temp Pulse Resp B/P (MAP) Pulse Ox O2 Delivery O2 Flow Rate FiO2 12/24/17 12:30 108 12/24/17 08:57 97.8 110 16 177/93 (121) 99 12/24/17 08:30 90 12/24/17 04:30 98.2 100 18 163/88 (113) 96 12/24/17 04:00 96 12/24/17 00:00 105 12/24/17 00:00 98.2 97 20 158/80 (106) 98 12/23/17 21:15 162/79 (106) 12/23/17 20:00 98.5 102 18 180/84 (116) 95 12/23/17 20:00 95 Room Air 12/23/17 20:00 98.5 102 18 180/84 (116) 95 12/23/17 20:00 100 (Meghan Iverson) -: 12/24/17 0850 12/24/17 0850 Imaging Last Impressions Chest X-Ray 12/24/17 0600 Signed Impressions: CONCLUSION: No acute cardiopulmonary process. Abdomen X-Ray 12/20/17 0000 Signed Impressions: CONCLUSION: 1. Linear air-like density paralleling the left lateral wall of the urinary bl adder. This is likely within the wall as opposed to the lumen. This raises conc chantal for acute cystitis. Abdomen/Pelvis CT 12/17/17 2207 Signed Impressions: CONCLUSION: 1. Markedly distended bladder with mild to moderate bilateral hydronephrosis. 2. Rectal impaction measuring up to 8.5 cm in diameter. 3. Lobulated mass in left adnexal region extending into left lower quadrant si milar in appearance to August and October 2017. Cannot exclude a slow growing ovaria n neoplasm. Tubes & Lines: Sheikh (Gellermann,Meghan M. [employer]UDIES FACULTY MEMBER) Physical Exam General Appearance: Well Developed, Well Nourished, Comfortable (Meghan Iverson. SPACE STUDIES FACULTY MEMBER) Eyes Eye Exam: Pupils Equal, Pupils Reactive (Meghan Iverson. SPACE STUDIES FACULTY MEMBER) Neck Neck Exam: Neck Supple (EstebanlerMeghan adame M. SPACE STUDIES FACULTY MEMBER) Pulmonary Resp Exam: Clear Bilaterally, Breath Sounds Equal (EstebanlerMeghan adame M. SPACE STUDIES FACULTY MEMBER) Cardiology CV Exam: Regular, Normal Sinus Rhythm, Good Perfusion (Meghan Iverson. SPACE STUDIES FACULTY MEMBER) Gastrointestinal/Abdomen GI Exam: Soft, Positive Bowel Movement, Distended (EsteabnlerMeghan adame. SPACE STUDIES FACULTY MEMBER) Musculoskeletal MS Exam: Joints Intact, Normal Tone (Meghan Iverson. SPACE STUDIES FACULTY MEMBER) Integumentary Skin Exam: Warm, Dry, Intact (Meghan Iverson. SPACE STUDIES FACULTY MEMBER) Extremeties Extremities Exam: No Edema, Pedal Pulses Palpable (Meghan Iverson M. SPACE STUDIES FACULTY MEMBER) Neurologic Neuro Exam: Alert, Awake, Oriented, Speech Clear, Moving All Extremities (Meghan Iverson. SP[employer] STUDIES FACULTY MEMBER) Assessment/Plan Discussed Condition With: Patient Assessment Summary: SANDY/Acute Renal Failure, Anemia of CKD, Hypertension Problem List: (1) SANDY (acute kidney injury) ICD Codes: N17.9 - Acute kidney failure, unspecified Status: Acute Plan: Her creatinine was normal in September. Since then she has had multiple episodes of SANDY due to chronic obstruction Her exact baseline is not known, creatinine was 3.37 at time of discharge last admission DKA has resolved. Now has renal hypoperfusion due to sepsis. Minimal improvement in renal function. Metabolic acidosis improved will discontinue sodium bicarbonate IVF Avoid hypotension Avoid nephrotoxic agents, renally dose appropriate to renal status PO Fluids encouraged Will monitor urinary output and BMP (2) DKA (diabetic ketoacidoses) ICD Codes: E13.10 - Other specified diabetes mellitus with ketoacidosis without coma Status: Acute Plan: Improved. (3) UTI (urinary tract infection) ICD Codes: N39.0 - Urinary tract infection, site not specified Status: Acute Plan: Antibiotics per ID Renal dose antibiotics (4) Adnexal mass ICD Codes: N94.9 - Unspecified condition associated with female genital organs and menstrual cycle Status: Acute Plan: OWNER MANAGER evaluated, no plans for surgery this admission (5) Bilateral hydronephrosis ICD Codes: N13.30 - Unspecified hydronephrosis Plan: Due to adnexal mass and fecal impaction Urology following Given enemas (6) Anemia ICD Codes: D64.9 - Anemia, unspecified Plan: Microcytic hypochromic anemia May need Transfusion. Continue iron. (7) Fecal impaction ICD Codes: K56.41 - Fecal impaction Status: Resolved Plan: Enemas given, successful BM (Meghan Iverson) Problem List: (1) SANDY (acute kidney injury) ICD Codes: N17.9 - Acute kidney failure, unspecified Status: Acute Plan: Her creatinine was normal in September. Since then she has had multiple episodes of SANDY due to chronic obstruction Her exact baseline is not known, creatinine was 3.37 at time of discharge last admission DKA has resolved. Now has renal hypoperfusion due to sepsis. Minimal improvement in renal function. Metabolic acidosis improved will discontinue sodium bicarbonate IVF Avoid hypotension Avoid nephrotoxic agents, renally dose appropriate to renal status PO Fluids encouraged Will monitor urinary output and BMP Creatinine is improving, D/C IVF (2) DKA (diabetic ketoacidoses) ICD Codes: E13.10 - Other specified diabetes mellitus with ketoacidosis without coma Status: Acute Plan: Improved. (3) UTI (urinary tract infection) ICD Codes: N39.0 - Urinary tract infection, site not specified Status: Acute Plan: Antibiotics per ID Renal dose antibiotics (4) Adnexal mass ICD Codes: N94.9 - Unspecified condition associated with female genital organs and menstrual cycle Status: Acute Plan: OWNER MANAGER evaluated, no plans for surgery this admission (5) Bilateral hydronephrosis ICD Codes: N13.30 - Unspecified hydronephrosis Plan: Due to adnexal mass and fecal impaction Urology following Given enemas (6) Anemia ICD Codes: D64.9 - Anemia, unspecified Plan: Microcytic hypochromic anemia May need Transfusion. Continue iron. (7) Fecal impaction ICD Codes: K56.41 - Fecal impaction Status: Resolved Plan: Enemas given, successful BM (Maicol Smith MD) Problem Qualifiers (1) DKA (diabetic ketoacidoses): Qualified Codes: E11.10 - Type 2 diabetes mellitus with ketoacidosis without coma (2) UTI (urinary tract infection): Qualified Codes: T83.511A - Infection and inflammatory reaction due to indwelling urethral catheter, initial encounter; N39.0 - Urinary tract infection , site not specified Meghan Iverson Dec 24, 2017 16:29 Maicol Smith MD Dec 24, 2017 22:32
[2017-12-25] VITALS: BP 152/72; PULSE 102; RESP 18; TEMP 98.1; O2SAT 98
[2017-12-25 08:00] VITALS: BP 161/82; PULSE 104; RESP 18; TEMP 97.9; O2SAT 98
[2017-12-25 09:00] LABS: AUTOMATED NEUTROPHIL # 13.8 TH/MM3 (1.8-7.7); BASOPHIL # 0.1 TH/MM3 (0-0.2); BASOPHIL % 0.6 % (0.0-2.0); EOSINOPHIL # 0.2 TH/MM3 (0-0.4); EOSINOPHIL % 1.5 % (0.0-4.0); HEMATOCRIT 25.6 % (35.0-46.0); LYMPH % 12.8 % (9.0-44.0); LYMPHOCYTE # 2.2 TH/MM3 (1.0-4.8); MEAN CELL VOLUME 70.8 FL (80.0-100.0); MEAN CORPUSCULAR HGB CONC 31.2 % (32.0-36.0); MEAN PLATELET VOLUME 7.4 FL (7.0-11.0); MONO % 4.4 % (0.0-8.0); MONOCYTE # 0.7 TH/MM3 (0-0.9); NEUT % 80.7 % (16.0-70.0); PLATELET COUNT 453 TH/MM3 (150-450); RED BLOOD COUNT 3.62 MIL/MM3 (4.00-5.30); RED CELL DISTRIBUTION WIDTH 17.7 % (11.6-17.2)
[2017-12-25] MEDS: DULoxetine HCl DR 30 MG CAP PO SCH (09:00)
[2017-12-25] MEDS: MINERAL OIL ENEMA 118 ML BTL RECTAL SCH (09:00)
[2017-12-25] MEDS: SODIUM CHLORIDE 0.9% FLUSH 10 ML FLUSH IV FLUSH SCH ×2 (09:00→21:52)
[2017-12-25] MEDS: DOCUSATE SODIUM 50 MG/SENNA 8.6 MG TAB PO SCH ×2 (09:12→21:00)
[2017-12-25] MEDS: PANTOPRAZOLE SOD 40 MG DELAYED RELEASE TAB PO SCH (09:12)
[2017-12-25] MEDS: VITAMIN B CMPLX/VITC/FOLIC AC CAP PO SCH (09:12)
[2017-12-25] MEDS: SIMETHICONE 80 MG CHEWABLE TAB CHEW PRN ×2 (09:12→18:43)
[2017-12-25] MEDS: oxyCODONE/ACETAMINOPHEN 5 MG/325 MG TAB PO PRN ×4 (09:12→22:03)
[2017-12-25] MEDS: INSULIN ASPART SUPPLEMENTAL SCALE SQ SCH ×4 (09:13→22:12)
[2017-12-25] MEDS: INSULIN HUMAN NPH 1,000 UNITS/10 ML VIAL SQ SCH ×2 (09:13→18:05)
[2017-12-25 09:39] LABS: ALBUMIN 1.9 GM/DL (3.4-5.0); ALKALINE PHOSPHATASE 458 U/L (45-117); ALT (GPT) 54 U/L (10-53); AST (GOT) 53 U/L (15-37); BLOOD UREA NITROGEN 26 MG/DL (7-18); CALCIUM 8.9 MG/DL (8.5-10.1); CREATININE 2.21 MG/DL (0.50-1.00); GLOMERULAR FILTRATION RATE 28 ML/MIN (>89); GLUCOSE,RANDOM 128 MG/DL (74-106); MAGNESIUM 1.5 MG/DL (1.5-2.5); PHOSPHORUS 2.4 MG/DL (2.5-4.9); TOTAL PROTEIN 6.6 GM/DL (6.4-8.2)
[2017-12-25 09:40] LABS: BICARBONATE 27.9 MEQ/L (21.0-32.0); CHLORIDE 104 MEQ/L (98-107); SODIUM (NA) 139 MEQ/L (136-145); TOTAL BILIRUBIN ADULT 0.6 MG/DL (0.2-1.0)
--- NOTE | 2017-12-25 10:55 | HHI.PR ---
Subjective Remarks in no acute distress. looks comfortable. no fever. denies pain. Objective Vitals Vital Signs Date Time Temp Pulse Resp B/P (MAP) Pulse Ox O2 Delivery O2 Flow Rate FiO2 12/25/17 08:00 97.9 104 18 161/82 (108) 98 12/25/17 00:00 98.1 102 18 152/72 (98) 98 12/24/17 20:00 98.7 105 18 173/79 (110) 97 12/24/17 17:00 97.2 99 16 152/88 (109) 99 12/24/17 12:30 108 12/24/17 12:00 98.1 109 16 169/81 (110) 99 I/O 12/24/17 12/24/17 12/24/17 12/25/17 12/25/17 12/25/17 07:00 15:00 23:00 07:00 15:00 23:00 Intake Total 1227 ml 1850 ml 480 ml Output Total 3850 ml 2300 ml 4050 ml Balance -2623 ml -450 ml -3570 ml Intake Oral 480 ml 480 ml IV Total 747 ml 1850 ml Output Urine Total 3850 ml 2300 ml 4050 ml # Bowel Movements 0 Result Diagram: 12/25/17 0756 12/25/17 0756 Imaging Last Impressions Chest X-Ray 12/24/17 0600 Signed Impressions: CONCLUSION: No acute cardiopulmonary process. Abdomen X-Ray 12/20/17 0000 Signed Impressions: CONCLUSION: 1. Linear air-like density paralleling the left lateral wall of the urinary bl adder. This is likely within the wall as opposed to the lumen. This raises conc chantal for acute cystitis. Abdomen/Pelvis CT 12/17/17 2207 Signed Impressions: CONCLUSION: 1. Markedly distended bladder with mild to moderate bilateral hydronephrosis. 2. Rectal impaction measuring up to 8.5 cm in diameter. 3. Lobulated mass in left adnexal region extending into left lower quadrant si milar in appearance to August and October 2017. Cannot exclude a slow growing ovaria n neoplasm. Objective Remarks GENERAL: This is a well-nourished, well-developed patient, in no apparent distress. CARDIOVASCULAR: Regular rate and regular rhythm without murmurs, gallops, or rubs. RESPIRATORY: Clear to auscultation. Breath sounds equal bilaterally. No wheezes , rales, or rhonchi. GASTROINTESTINAL: Abdomen soft, non-tender, nondistended. Normal, active bowel sounds MUSCULOSKELETAL: Extremities without clubbing, cyanosis, or edema. NEURO: Alert & Oriented x4 to person, place, time, situation. Moves all ext x4 Medications and IVs Inpatient Medications Acetaminophen (Tylenol) 650 mg Q6H PRN PO PAIN 1-10 AND/OR FEVER >101F; Start 12/17/17 at 23:15 Al Hydrox/Mg Hydrox/Simethicone (Mag-Al Plus Susp Liq) 30 ml Q6H PRN PO DYSPEPSIA OR HEARTBURN Last administered on 12/24/17at 01:35; Start 12/24/17 at 01:30 Albuterol/ Ipratropium (Duoneb Neb) 1 ampule Q2HR NEB PRN INH WHEEZING; Start 12/17/17 at 23:15 Bisacodyl (Dulcolax Supp) 10 mg DAILY PRN RECTAL SEVERE CONSITIPATION; Start at 23:15 Calcium Carbonate (Tums Chew) 500 mg Q6H PRN CHEW DYSPEPSIA OR HEARTBURN Last administered on 12/24/17at 18:12; Start 12/24/17 at 01:30 Cefepime HCl 2000 mg/Sodium Chloride 100 ml @ 200 mls/hr DAILY@1600 IV Last administered on 12/24/17at 15:43; Start 12/24/17 at 16:00 Chlorhexidine Gluconate (Chlorhexidine 2% Cloth) 3 pack UNSCH PRN TOP HYGIENIC CARE; Start 12/17/17 at 23:15 Dextrose (D50w (Vial) Inj) 25 ml UNSCH PRN IV HYPOGLYCEMIA-SEE COMMENTS; Start 12/19/17 at 02:30; Stop 12/19/17 at 02:30; Status DC Dextrose/Sodium Chloride 1,000 ml @ 200 mls/hr Q5H IV Last administered on at 08:24; Start 12/17/17 at 21:23; Stop 12/18/17 at 15:49; Status DC Duloxetine HCl (Cymbalta Dr) 30 mg DAILY PO Last administered on 12/21/17at 08: 39; Start 12/20/17 at 15:00 Glucagon (Glucagon Inj) 1 mg UNSCH PRN IM/SQ HYPOGLYCEMIA-SEE COMMENTS; Start 12/19/17 at 02:30 Insulin Aspart (NovoLOG SUPPLEMENTAL SCALE) 1 ACHS SQ Last administered on 12/25at 09:13; Start 12/19/17 at 08:00 Insulin Human Regular (NovoLIN R INJ) 8 units BOLUS ONCE IV PUSH Last administered on 12/17/17at 22:44; Start 12/17/17 at 21:30; Stop 12/17/17 at 21:41 ; Status DC Insulin Human Regular 100 units/ Sodium Chloride 100 ml @ 8 mls/hr TITRATE PRN IV Blood Sugar Management; Start 12/19/17 at 02:30; Stop 12/19/17 at 04:15; Status DC Insulin Human NPH (NovoLIN N INJ) 15 units ONCE ONCE SQ Last administered on at 02:57; Start 12/19/17 at 02:15; Stop 12/19/17 at 02:19; Status DC Iron Sucrose 100 mg/Sodium Chloride 105 ml @ 105 mls/hr DAILY IV Last administered on 12/19/17at 09:01; Start 12/18/17 at 09:00; Stop 12/19/17 at 09:46 ; Status DC Lactulose (Lactulose Liq) 30 ml DAILY PRN PO SEVERE CONSITIPATION; Start at 23:15 Levofloxacin (Levaquin) 500 mg Q48H PO Last administered on 12/23/17at 16:04; Start 12/23/17 at 16:00 Magnesium Hydroxide (Milk Of Magnesia Liq) 30 ml ONCE ONCE PO ; Start 12/22/17 at 08:45; Stop 12/22/17 at 08:55; Status DC Magnesium Oxide (Mag-Ox) 400 mg ONCE ONCE PO Last administered on 12/23/17at 07 :01; Start 12/23/17 at 06:00; Stop 12/23/17 at 06:01; Status DC Metoclopramide HCl (Reglan Inj) 5 mg ONCE ONCE IV PUSH Last administered on at 21:35; Start 12/17/17 at 20:30; Stop 12/17/17 at 20:33; Status DC Mineral Oil (Fleet Mineral Oil Enema) 118 ml DAILY RECTAL ; Start 12/18/17 at 11 :30 Miscellaneous Information (MISC DC previous DKA orders) 1 ONCE ONCE .XX Last administered on 12/19/17at 02:15; Start 12/19/17 at 02:15; Stop 12/19/17 at 02:18 ; Status DC Miscellaneous Information ([place] DC Insulin 2 hrs post Levemir) 1 ONCE ONCE .XX Last administered on 12/19/17at 02:15; Start 12/19/17 at 02:15; Stop 12/19/17 at 02:18; Status DC Miscellaneous Information ([place] Nursing Information) 1 Q361D XX Last administered on 12/18/17at 02:57; Start 12/17/17 at 23:15 Morphine Sulfate (Morphine Inj) 4 mg ONCE ONCE IV PUSH Last administered on at 21:39; Start 12/17/17 at 20:30; Stop 12/17/17 at 20:33; Status DC Ondansetron HCl (Zofran Odt) 4 mg Q6H PRN PO NAUSEA OR VOMITING Last administered on 12/24/17at 08:48; Start 12/17/17 at 23:45 Oxycodone/ Acetaminophen (Percocet 5-325 Mg) 1 tab Q4H PRN PO pain scale 3-10 Last administered on 12/25/17at 09:12; Start 12/18/17 at 02:30 Pantoprazole Sodium (Protonix) 40 mg DAILY PO Last administered on 12/25/17at 09 :12; Start 12/18/17 at 09:00 Piperacillin Sod/ Tazobactam Sod 50 ml @ 100 mls/hr Q8H IV Last administered on 12/21/17at 08:38; Start 12/18/17 at 08:00; Stop 12/21/17 at 14:54; Status DC Potassium Bicarb/ Potassium Chloride (K-Lyte Cl Eff) 50 meq ONCE ONCE PO Last administered on 12/24/17at 18:11; Start 12/24/17 at 16:15; Stop 12/24/17 at 16:16; Status DC Potassium Chloride 100 ml @ 50 mls/hr Q2H PRN IV SEE LABEL COMMENTS; Start at 21:30; Stop 12/19/17 at 02:22; Status DC Senna/Docusate Sodium (Debi-Colace) 1 tab BID PO Last administered on at 09:12; Start 12/22/17 at 09:00 Sennosides (Senokot) 17.2 mg Q12H PRN PO Moderate constipation; Start 12/17/17 at 23:15 Simethicone (Mylicon Chew) 80 mg PCHS PRN CHEW flatus/gas Last administered on 12/25/17at 09:12; Start 12/24/17 at 01:30 Sodium Bicarbonate 100 meq/Sterile Water 1,000 ml @ 75 mls/hr [id number] IV ; Start 12/18/17 at 11:00; Stop 12/18/17 at 11:02; Status DC Sodium Bicarbonate 150 meq/Sterile Water 1,000 ml @ 45 mls/hr [id number] IV Last administered on 12/24/17at 00:34; Start 12/19/17 at 10:00; Stop 12/24/17 at 16:30 ; Status DC Sodium Bicarbonate (Sodium Bicarbonate 8.4% Inj) 50 meq UNSCH PRN IV PUSH SEE LABEL COMMENTS; Start 12/17/17 at 21:30; Stop 12/19/17 at 02:22; Status DC Sodium Chloride 1,000 ml @ 84 mls/hr [id number] IV Last administered on at 23:44; Start 12/23/17 at 14:15 Sodium Chloride (NS Flush) 2 ml BID IV FLUSH Last administered on 12/24/17at 23: 44; Start 12/18/17 at 09:00 Sodium Phosphate 15 mmol/Sodium Chloride 105 ml @ 25 mls/hr UNSCH PRN IV SEE LABEL COMMENTS; Start 12/17/17 at 21:30; Stop 12/19/17 at 02:22; Status DC Vancomycin HCl 1000 mg/Sodium Chloride 250 ml @ 250 mls/hr ONCE ONCE IV Last administered on 12/18/17at 02:57; Start 12/17/17 at 23:15; Stop 12/18/17 at 00:14 ; Status DC Vitamin B Complex/ Vit C/Folic Acid (Nephrocaps) 1 cap DAILY PO Last administered on 12/25/17at 09:12; Start 12/18/17 at 09:00 A/P Assessment and Plan A/P Sepsis secondary to gram-negative UTI, slowly improving Gram-negative bacteremia. Klebsiella Continue antibiotics. Repeated cultures from 12/24 negative so far. Can take levofloxacin to complete treatment course- per ID recommendations. DKA -blood glucose improved- continue NPH with insulin siding scale. Pelvic mass with impaction. Continue laxatives. Gynecology/oncology following. Appreciate assistance. SANDY on CKD: Creatinine stable. Nephrology following. Continue to monitor. Hypertension blood pressure acceptable. Continue to monitor. Severe anemia -required 1 unit of PRBC transfusion Hemoglobin stable. Continue to monitor. Discharge Planning dc to rehab tomorrow if stable. Esdras Mathur MD Dec 25, 2017 10:55
[2017-12-25] MEDS: SODIUM CHLOR 0.9% 1000 ML INJ 1,000 ML IV SCH (11:27)
[2017-12-25 11:56] LABS: TARGET CELLS 1+ (NORMAL)
[2017-12-25 12:00] VITALS: BP 120/88; PULSE 117; RESP 19; TEMP 97.7; O2SAT 100
--- NOTE | 2017-12-25 15:41 | HHI.NPPN ---
Subjective General Problems: Anemia Renal Failure: Chronic, Acute Additional Remarks Denies any shortness of breath. Creatinine continues to improve at 2.21. Rash noted under breast region and pannus (Meghan Iverson) Review of Systems General Constitutional: Fatigue (Meghan Iverson) Musculoskeletal MS: Pain/Stiffness (Meghan Iverson) Skin Skin: Skin Rash (Meghan Iverson) Objective Data Data 12/25/17 12/26/17 19:00 07:00 Intake Total 480 ml Output Total 4050 ml Balance -3570 ml Intake Oral 480 ml Output Urine Total 4050 ml Vital Signs Date Time Temp Pulse Resp B/P (MAP) Pulse Ox O2 Delivery O2 Flow Rate FiO2 12/25/17 12:00 97.7 117 19 120/88 (99) 100 12/25/17 08:00 97.9 104 18 161/82 (108) 98 12/25/17 00:00 98.1 102 18 152/72 (98) 98 12/24/17 20:00 98.7 105 18 173/79 (110) 97 12/24/17 17:00 97.2 99 16 152/88 (109) 99 (Meghan Iverson) -: 12/25/17 0756 12/25/17 0756 Microbiology 12/24/17 Aerobic Blood Culture - Preliminary, Resulted NO GROWTH IN 1 DAY 12/24/17 Anaerobic Blood Culture - Preliminary, Resulted NO GROWTH IN 1 DAY 12/24/17 Aerobic Blood Culture - Preliminary, Resulted NO GROWTH IN 1 DAY 12/24/17 Anaerobic Blood Culture - Preliminary, Resulted NO GROWTH IN 1 DAY Imaging Last Impressions Chest X-Ray 12/24/17 0600 Signed Impressions: CONCLUSION: No acute cardiopulmonary process. Abdomen X-Ray 12/20/17 0000 Signed Impressions: CONCLUSION: 1. Linear air-like density paralleling the left lateral wall of the urinary bl adder. This is likely within the wall as opposed to the lumen. This raises conc chantal for acute cystitis. Abdomen/Pelvis CT 12/17/17 2207 Signed Impressions: CONCLUSION: 1. Markedly distended bladder with mild to moderate bilateral hydronephrosis. 2. Rectal impaction measuring up to 8.5 cm in diameter. 3. Lobulated mass in left adnexal region extending into left lower quadrant si milar in appearance to August and October 2017. Cannot exclude a slow growing ovaria n neoplasm. Tubes & Lines: Sheikh (Meghan Iverson. CARMEL) Physical Exam General Appearance: Well Developed, Well Nourished, Comfortable (Meghan Iverson. MONEY COUNTER) Eyes Eye Exam: Pupils Equal, Pupils Reactive (EstebanlerTiki adamene Trinidad. MONEY COUNTER) Neck Neck Exam: Neck Supple (EstebanlerMeghan daame. MONEY COUNTER) Pulmonary Resp Exam: Clear Bilaterally, Breath Sounds Equal (EstebanlermannTikiMeghan Trinidad. MONEY COUNTER) Cardiology CV Exam: Regular, Normal Sinus Rhythm, Good Perfusion (Meghan Iverson. MONEY COUNTER) Gastrointestinal/Abdomen GI Exam: Soft, Positive Bowel Movement, Distended (EstebanlerTiki adamene M. MONEY COUNTER) Musculoskeletal MS Exam: Joints Intact, Normal Tone (EstebanlerTiki adamene M. MONEY COUNTER) Integumentary Skin Exam: Warm, Dry, Intact (Meghan Iverson. MONEY COUNTER) Extremeties Extremities Exam: No Edema, Pedal Pulses Palpable (EstebanlerMeghan adame. MONEY COUNTER) Neurologic Neuro Exam: Alert, Awake, Oriented, Speech Clear, Moving All Extremities (Meghan Iverson. MONEY COUNTER) Assessment/Plan Discussed Condition With: Patient Assessment Summary: SANDY/Acute Renal Failure, Anemia of CKD, Hypertension Problem List: (1) SANDY (acute kidney injury) ICD Codes: N17.9 - Acute kidney failure, unspecified Status: Acute Plan: Her creatinine was normal in September. Since then she has had multiple episodes of SANDY due to chronic obstruction Her exact baseline is not known, creatinine was 3.37 at time of discharge last admission DKA has resolved. Now has renal hypoperfusion due to sepsis. Minimal improvement in renal function. Improved oral intake will discontinue IVF's Avoid hypotension Avoid nephrotoxic agents, renally dose appropriate to renal status PO Fluids encouraged Will monitor urinary output and BMP Nystatin powder ordered for rash. (2) DKA (diabetic ketoacidoses) ICD Codes: E13.10 - Other specified diabetes mellitus with ketoacidosis without coma Status: Acute Plan: Improved. 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 Continue iron. (7) Fecal impaction ICD Codes: K56.41 - Fecal impaction Status: Resolved Plan: Enemas given, successful BM (Meghan Iverson) Problem List: (1) SANDY (acute kidney injury) ICD Codes: N17.9 - Acute kidney failure, unspecified Status: Acute Plan: Her creatinine was normal in September. Since then she has had multiple episodes of SANDY due to chronic obstruction Her exact baseline is not known, creatinine was 3.37 at time of discharge last admission DKA has resolved. Now has renal hypoperfusion due to sepsis. Minimal improvement in renal function. Improved oral intake will discontinue IVF's Avoid hypotension Avoid nephrotoxic agents, renally dose appropriate to renal status PO Fluids encouraged Will monitor urinary output and BMP Nystatin powder ordered for rash. Patient seen and examined, agree with above. Creatinine continue to improve. (2) DKA (diabetic ketoacidoses) ICD Codes: E13.10 - Other specified diabetes mellitus with ketoacidosis without coma Status: Acute Plan: Improved. 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 Continue iron. (7) Fecal impaction ICD Codes: K56.41 - Fecal impaction Status: Resolved Plan: Enemas given, successful BM (Maicol Smith MD) Problem Qualifiers (1) DKA (diabetic ketoacidoses): Qualified Codes: E11.10 - Type 2 diabetes mellitus with ketoacidosis without coma (2) UTI (urinary tract infection): Qualified Codes: T83.511A - Infection and inflammatory reaction due to indwelling urethral catheter, initial encounter; N39.0 - Urinary tract infection , site not specified Meghan Iverson Dec 25, 2017 15:41 Maicol Smith MD Dec 25, 2017 21:28
[2017-12-25] MEDS: CEFEPIME INJ 2,000 MG in SODIUM CHLORIDE 0.9% INJ 100 ML IV SCH (15:55)
[2017-12-25] MEDS: LEVOFLOXACIN 500 MG TAB PO SCH (16:00)
--- NOTE | 2017-12-25 17:41 | HHI.IDPN ---
Subjective Subjective Remarks is a 57 y/o CF known to me from prior admission. Patient was previously hospitalized for E. coli ESBL bacteremia as well as UTI. At that time patient was diagnosed to have a uterine adnexal mass and urology as well as PROCEDURE WRITER oncology were involved. Patient underwent treatment for ESBL E. coli bacteremia for a total of 2 weeks with IV ertapenem as outpatient. Subsequently patient has been following up with urology and she tells me that there was a plan for a surgical procedure but it is postponed. Upon review of Dr. Samano notes it appears that patient needed cardiology clearance for the procedure under anesthesia. Patient was found to have EKG said changes suggestive of ischemia and a cardiology evaluation revealed that she was at moderate risk for the procedure under anesthesia. Despite that the plan was to proceed with the procedure on January 08 but patient in the interim felt bad and is now admitted to the hospital. Patient describes that for the last several days she has been experiencing extreme weakness pain all over her body. Her boyfriend who is in the room reports that she has been having extremely severe pain upon minimal touch especially in her ankles thought to be secondary to her neuropathy. She lost her ability to stand because of this weakness and pain and also reported abdominal distention and discomfort and due to an overall feeling of unwellness she presented to the emergency department. She reports that her blood sugar was greater than 1000 by EMS fingerstick. She reports compliance with her medications but from past admission experience with her I am not sure if she is compliant. Patient was also seen by urology during her last admission and noted to have neurogenic bladder in addition to a component of obstipation from the uterine mass related urinary problems. Patient denies any vaginal spotting or any blood-tinged discharge in the interim. She does report obstipation and periods of constipation versus fairly severe despite taking a stool softener. Sepsis workup was initiated blood cultures are now positive for Klebsiella oxytoca as well as urine cultures are positive for Klebsiella oxytoca. Patient has been evaluated by urology and it is their recommendation that patient had a Shekih catheterization throughout her admission and possibly need for intermittent self-catheterization on discharge. Patient has also been evaluated by PROCEDURE WRITER oncology and does not appear that they have any immediate plans for surgery. A CAT scan of the abdomen showed a lobulated mass in the left adnexal region the left lower quadrant similar to her prior imaging in August as well as October 2017. She was noted to have a markedly distended bladder as well as rectal impaction and additionally bilateral mild to moderate hydronephrosis. Patient denies any fevers chills or night sweats prior to admission GI symptoms as noted above. No PROCEDURE WRITER related discharge. PROCEDURE WRITER history as noted above. Denies any weight loss. Appetite okay. Infectious disease consulted for evaluation and management of sepsis, gram- negative bacteremia as well as gram-negative navya UTI. Overnight events reviewed No fevers No rash No diarrhea WBC still at 17. Complains of pain and tenderness in breast folds. Antibiotics Current Medications Medications (Trade) Dose Ordered Sig/Elroy Route Start Time Stop Time Status Last Admin (NS Flush) 2 ml UNSCH PRN IV FLUSH 12/17/17 23:15 (NS Flush) 2 ml BID IV FLUSH 12/18/17 09:00 12/25/17 21:52 (Tylenol) 650 mg Q6H PRN PO 12/17/17 23:15 (Protonix) 40 mg DAILY PO 12/18/17 09:00 12/25/17 09:12 (Zofran Odt) 4 mg Q6H PRN PO 12/17/17 23:45 12/24/17 08:48 (Duoneb Neb) 1 ampule Q2HR NEB PRN INH 12/17/17 23:15 ([facility] [place] [facility]) 1 Q361D XX 12/17/17 23:15 12/18/17 02:57 (Chlorhexidine 2% Cloth) Taper DAILY@04 TOP 12/18/17 04:00 12/14/18 03:59 12/21/17 04:00 (Chlorhexidine 2% Cloth) 3 pack UNSCH PRN TOP 12/17/17 23:15 (Milk Of Magnesia Liq) 30 ml Q12H PRN PO 12/17/17 23:15 (Senokot) 17.2 mg Q12H PRN PO 12/17/17 23:15 (Dulcolax Supp) 10 mg DAILY PRN RECTAL 12/17/17 23:15 (Lactulose Liq) 30 ml DAILY PRN PO 12/17/17 23:15 (Nephrocaps) 1 cap DAILY PO 12/18/17 09:00 12/25/17 09:12 (Percocet 5-325 Mg) 1 tab Q4H PRN PO 12/18/17 02:30 12/25/17 22:03 (Fleet Mineral Oil Enema) 118 ml DAILY RECTAL 12/18/17 11:30 (D50w (Vial) Inj) 50 ml UNSCH PRN IV PUSH 12/19/17 02:15 (NovoLIN N INJ) 15 units BID@08,17 SQ 12/19/17 08:00 12/25/17 18:05 (NovoLOG SUPPLEMENTAL SCALE) 1 ACHS SQ 12/19/17 08:00 12/25/17 22:12 (Glucagon Inj) 1 mg UNSCH PRN IM/SQ 12/19/17 02:30 (Cymbalta Dr) 30 mg DAILY PO 12/20/17 15:00 12/21/17 08:39 (Debi-Colace) 1 tab BID PO 12/22/17 09:00 12/25/17 09:12 (Mylicon Chew) 80 mg PCHS PRN CHEW 12/24/17 01:30 12/25/17 18:43 (Mag-Al Plus Susp Liq) 30 ml Q6H PRN PO 12/24/17 01:30 12/24/17 01:35 (Tums Chew) 500 mg Q6H PRN CHEW 12/24/17 01:30 12/24/17 18:12 Cefepime HCl 2000 mg/Sodium Chloride 100 ml @ 200 mls/hr DAILY@1600 IV 12/24/17 16:00 12/25/17 15:55 (Mycostatin Powder) 1 applic Q8HR TOPICAL 12/25/17 22:00 01/11/18 09:00 12/25/17 21:53 (Zyvox) 600 mg Q12HR PO 12/25/17 21:00 12/25/17 21:50 (Diflucan) 100 mg DAILY PO 12/25/17 21:00 12/25/17 21:50 Lines Lines ok Past Medical History Past Medical History Type 2 diabetes, pelvic mass (or masses), neurogenic bladder, obstipation, anxiety, hypertension, elevated cholesterol, gastroesophageal reflux, peripheral neuropathy. Past Surgical History Knee surgery. She has had a prior colonoscopy. Allergies: Coded Allergies: No Known Allergies (Verified Allergy, Unknown, 10/30/17) Objective . Vital Signs Date Time Temp Pulse Resp B/P (MAP) Pulse Ox O2 Delivery O2 Flow Rate FiO2 12/25/17 12:00 97.7 117 19 120/88 (99) 100 12/25/17 08:00 97.9 104 18 161/82 (108) 98 12/25/17 00:00 98.1 102 18 152/72 (98) 98 12/24/17 20:00 98.7 105 18 173/79 (110) 97 12/25/17 12/25/17 12/26/17 15:00 23:00 07:00 Intake Total 1230 ml 100 ml Output Total 4050 ml Balance -2820 ml 100 ml Intake Oral 480 ml IV Total 750 ml 100 ml Output Urine Total 4050 ml . Laboratory Tests Test 12/24/17 08:50 12/25/17 07:56 White Blood Count 18.3 TH/MM3 17.0 TH/MM3 Red Blood Count 3.96 MIL/MM3 3.62 MIL/MM3 Hemoglobin 8.8 GM/DL 8.0 GM/DL Hematocrit 28.0 % 25.6 % Mean Corpuscular Volume 70.7 FL 70.8 FL Mean Corpuscular Hemoglobin 22.3 PG 22.0 PG Mean Corpuscular Hemoglobin Concent 31.5 % 31.2 % Red Cell Distribution Width 17.8 % 17.7 % Platelet Count 462 TH/MM3 453 TH/MM3 Mean Platelet Volume 7.5 FL 7.4 FL Neutrophils (%) (Auto) 82.3 % 80.7 % Lymphocytes (%) (Auto) 10.3 % 12.8 % Monocytes (%) (Auto) 5.6 % 4.4 % Eosinophils (%) (Auto) 1.3 % 1.5 % Basophils (%) (Auto) 0.5 % 0.6 % Neutrophils # (Auto) 15.0 TH/MM3 13.8 TH/MM3 Lymphocytes # (Auto) 1.9 TH/MM3 2.2 TH/MM3 Monocytes # (Auto) 1.0 TH/MM3 0.7 TH/MM3 Eosinophils # (Auto) 0.2 TH/MM3 0.2 TH/MM3 Basophils # (Auto) 0.1 TH/MM3 0.1 TH/MM3 CBC Comment AUTO DIFF AUTO DIFF Differential Total Cells Counted 100 Neutrophils % (Manual) 86 % Lymphocytes % 9 % Monocytes % 3 % Neutrophils # (Manual) 16.1 TH/MM3 Myelocytes 2 % Differential Comment FINAL DIFF MANUAL AUTO DIFF CONFIRMED Platelet Estimate NORMAL Platelet Morphology Comment NORMAL Target Cells 1+ 1+ Laboratory Tests Test 12/24/17 08:50 12/25/17 07:56 Blood Urea Nitrogen 29 MG/DL 26 MG/DL Creatinine 2.34 MG/DL 2.21 MG/DL Random Glucose 174 MG/DL 128 MG/DL Total Protein 6.8 GM/DL 6.6 GM/DL Albumin 1.9 GM/DL 1.9 GM/DL Calcium Level 8.6 MG/DL 8.9 MG/DL Phosphorus Level 2.3 MG/DL 2.4 MG/DL Magnesium Level 1.6 MG/DL 1.5 MG/DL Alkaline Phosphatase 483 U/L 458 U/L Aspartate Amino Transf (AST/SGOT) 51 U/L 53 U/L Alanine Aminotransferase (ALT/SGPT) 45 U/L 54 U/L Total Bilirubin 0.8 MG/DL 0.6 MG/DL Sodium Level 139 MEQ/L 139 MEQ/L Potassium Level 3.4 MEQ/L 4.5 MEQ/L Chloride Level 99 MEQ/L 104 MEQ/L Carbon Dioxide Level 31.2 MEQ/L 27.9 MEQ/L Anion Gap 9 MEQ/L 7 MEQ/L Estimat Glomerular Filtration Rate 26 ML/MIN 28 ML/MIN Microbiology Date/Time Source Procedure Growth Status 12/24/17 21:22 Blood Peripheral Aerobic Blood Culture - Preliminary NO GROWTH IN 1 DAY Resulted 12/24/17 21:22 Blood Peripheral Anaerobic Blood Culture - Preliminary NO GROWTH IN 1 DAY Resulted 12/24/17 16:00 Blood Peripheral Aerobic Blood Culture - Preliminary NO GROWTH IN 1 DAY Resulted 12/24/17 16:00 Blood Peripheral Anaerobic Blood Culture - Preliminary NO GROWTH IN 1 DAY Resulted Imaging Last Impressions Abdomen X-Ray 12/20/17 0000 Signed Impressions: CONCLUSION: 1. Linear air-like density paralleling the left lateral wall of the urinary bl adder. This is likely within the wall as opposed to the lumen. This raises conc chantal for acute cystitis. Chest X-Ray 12/18/17 0600 Signed Impressions: CONCLUSION: Negative examination. Abdomen/Pelvis CT 12/17/17 2207 Signed Impressions: CONCLUSION: 1. Markedly distended bladder with mild to moderate bilateral hydronephrosis. 2. Rectal impaction measuring up to 8.5 cm in diameter. 3. Lobulated mass in left adnexal region extending into left lower quadrant si milar in appearance to August and October 2017. Cannot exclude a slow growing ovaria n neoplasm. Physical Exam GENERAL: This is a well-nourished, well-developed patient, in no apparent distress. SKIN: No rashes, ecchymoses or lesions. Cool and dry. HEAD: Atraumatic. Normocephalic. No temporal or scalp tenderness. EYES: Pupils equal round and reactive. Extraocular motions intact. No scleral icterus. No injection or drainage. ENT: Nose without bleeding, purulent drainage or septal hematoma. Throat without erythema, tonsillar hypertrophy or exudate. Uvula midline. Airway patent. NECK: Trachea midline. Supple, nontender, no meningeal signs. Breast folds with skin denudation, erythema and tenderness. CARDIOVASCULAR: Heart sounds audible. RESPIRATORY: Clear to auscultation. Breath sounds equal bilaterally. No wheezes , rales, or rhonchi. GASTROINTESTINAL: Abdomen soft, diffuse tenderness more pronounced in the right lower quadrant. MUSCULOSKELETAL: Extremities without clubbing, cyanosis, or edema. No joint tenderness, effusion, or edema noted. No calf tenderness. Negative Homans sign bilaterally. NEUROLOGICAL: Awake and alert. Nonfocal exam. Psych cooperative IV line sites with no evidence of infection. Assessment & Plan Remarks Sepsis present on admission Klebsiella oxytoca bacteremia Klebsiella oxytoca UTI Breast fold cellulitis. Chronically distended is chronically thick-walled urinary bladder possible chronic cystitis Obstipation with compression of possible re-the rectum over the bladder. Uterine adnexal mass Policy Adviser on board. Evaluation ongoing. Recs: Continue Cefepime IV Continue Levaquin for now. Start Oral Zyvox Start oral diflucan. Nystatin for local application. Follow cultures Follow clinically. dw patient Vika Pearson MD Dec 25, 2017 17:41
[2017-12-25 17:52] VITALS: BP 146/121; PULSE 98; RESP 19; TEMP 97.9; O2SAT 98
[2017-12-25] MEDS: LINEZOLID 600 MG TAB PO SCH (21:50)
[2017-12-25] MEDS: FLUCONAZOLE 100 MG TAB PO SCH (21:50)
[2017-12-25 21:51] VITALS: BP 175/81; PULSE 103; RESP 17; TEMP 98.3; O2SAT 99
[2017-12-25] MEDS: NYSTATIN 100,000 U/GM PWD 15 GM BTL TOPICAL SCH (21:53)
[2017-12-25] MEDS: CHLORHEXIDINE GLUCONATE 2 % 1 PACK (2 CLOTHS) TOP SCH (22:12)
[2017-12-26] VITALS: BP 154/82; PULSE 91; RESP 17; TEMP 98; O2SAT 99
[2017-12-26 04:00] VITALS: BP 149/71; PULSE 104; RESP 18; TEMP 97.7; O2SAT 100
[2017-12-26] MEDS: CALCIUM CARBONATE 500 MG CHEWABLE TAB CHEW PRN ×2 (06:09→12:52)
[2017-12-26] MEDS: NYSTATIN 100,000 U/GM PWD 15 GM BTL TOPICAL SCH ×3 (06:10→22:42)
[2017-12-26] MEDS: oxyCODONE/ACETAMINOPHEN 5 MG/325 MG TAB PO PRN ×4 (06:10→22:42)
[2017-12-26 07:34] LABS: AUTOMATED NEUTROPHIL # 12.2 TH/MM3 (1.8-7.7); BASOPHIL # 0.1 TH/MM3 (0-0.2); BASOPHIL % 0.6 % (0.0-2.0); EOSINOPHIL # 0.2 TH/MM3 (0-0.4); EOSINOPHIL % 1.5 % (0.0-4.0); HEMATOCRIT 25.9 % (35.0-46.0); HEMOGLOBIN 8.1 GM/DL (11.6-15.3); LYMPH % 11.7 % (9.0-44.0); LYMPHOCYTE # 1.8 TH/MM3 (1.0-4.8); MEAN CELL VOLUME 70.9 FL (80.0-100.0); MEAN CORPUSCULAR HGB CONC 31.1 % (32.0-36.0); MEAN PLATELET VOLUME 7.3 FL (7.0-11.0); MONO % 4.7 % (0.0-8.0); MONOCYTE # 0.7 TH/MM3 (0-0.9); NEUT % 81.5 % (16.0-70.0); PLATELET COUNT 435 TH/MM3 (150-450); RED BLOOD COUNT 3.65 MIL/MM3 (4.00-5.30); RED CELL DISTRIBUTION WIDTH 18.9 % (11.6-17.2)
[2017-12-26 07:36] LABS: ALBUMIN 1.9 GM/DL (3.4-5.0); AST (GOT) 42 U/L (15-37); BICARBONATE 24.9 MEQ/L (21.0-32.0); BLOOD UREA NITROGEN 25 MG/DL (7-18); CALCIUM 8.6 MG/DL (8.5-10.1); CHLORIDE 103 MEQ/L (98-107); CREATININE 2.14 MG/DL (0.50-1.00); GLOMERULAR FILTRATION RATE 29 ML/MIN (>89); GLUCOSE,RANDOM 220 MG/DL (74-106); SODIUM (NA) 137 MEQ/L (136-145)
[2017-12-26 07:40] LABS: ALKALINE PHOSPHATASE 454 U/L (45-117); ALT (GPT) 53 U/L (10-53); TOTAL BILIRUBIN ADULT 0.6 MG/DL (0.2-1.0); TOTAL PROTEIN 6.7 GM/DL (6.4-8.2)
[2017-12-26 08:00] VITALS: BP 144/75; PULSE 103; RESP 19; TEMP 98.1; O2SAT 100
[2017-12-26] MEDS: INSULIN HUMAN NPH 1,000 UNITS/10 ML VIAL SQ SCH ×2 (08:00→17:00)
[2017-12-26] MEDS: MINERAL OIL ENEMA 118 ML BTL RECTAL SCH (08:49)
[2017-12-26] MEDS: DOCUSATE SODIUM 50 MG/SENNA 8.6 MG TAB PO SCH ×2 (08:50→21:00)
[2017-12-26] MEDS: DULoxetine HCl DR 30 MG CAP PO SCH (08:51)
[2017-12-26] MEDS: FLUCONAZOLE 100 MG TAB PO SCH (08:52)
[2017-12-26] MEDS: LINEZOLID 600 MG TAB PO SCH ×2 (08:52→22:42)
[2017-12-26] MEDS: PANTOPRAZOLE SOD 40 MG DELAYED RELEASE TAB PO SCH (08:53)
[2017-12-26] MEDS: VITAMIN B CMPLX/VITC/FOLIC AC CAP PO SCH (08:53)
[2017-12-26] MEDS: INSULIN ASPART SUPPLEMENTAL SCALE SQ SCH ×4 (08:55→22:48)
[2017-12-26] MEDS: SODIUM CHLORIDE 0.9% FLUSH 10 ML FLUSH IV FLUSH SCH ×2 (08:55→22:48)
[2017-12-26 09:25] LABS: BANDS 6 % (0-6); LYMPHOCYTES 10 % (9-44); MONOCYTES 4 % (0-8); MYELOCYTES 2 % (0-0); NEUTROPHIL # MANUAL DIFF 12.6 TH/MM3 (1.8-7.7); POLYS (SEG NEUTROPHILS) 76 % (16-70)
--- NOTE | 2017-12-26 09:31 | HHI.NPPN ---
Subjective General Problems: Anemia Renal Failure: Chronic, Acute Additional Remarks Denies any shortness of breath. Creatinine continues to improve. (Meghan Iverson) Review of Systems General Constitutional: Fatigue (Meghan Iverson) Respiratory Respiratory Remarks Denies any SOB (Meghan Iverson) Cardiovascular Cardiac Remarks Denies chest pain (Meghan Iverson) Gastrointestinal GI Remarks Mild abdominal discomfort (Meghan Iverson) Musculoskeletal MS: Pain/Stiffness (Meghan Iverson) Skin Skin: Skin Rash (Meghan Iverson) Objective Data Data Vital Signs Date Time Temp Pulse Resp B/P (MAP) Pulse Ox O2 Delivery O2 Flow Rate FiO2 12/26/17 08:00 98.1 103 19 144/75 (98) 100 12/26/17 07:30 20 12/26/17 04:00 97.7 104 18 149/71 (97) 100 12/26/17 00:00 98.0 91 17 154/82 (106) 99 12/25/17 21:51 98.3 103 17 175/81 (112) 99 12/25/17 17:52 97.9 98 19 146/121 (129) 98 12/25/17 12:00 97.7 117 19 120/88 (99) 100 (Meghan Iverson) -: 12/26/17 0653 12/26/17 0653 Imaging Last Impressions Chest X-Ray 12/24/17 0600 Signed Impressions: CONCLUSION: No acute cardiopulmonary process. Abdomen X-Ray 12/20/17 0000 Signed Impressions: CONCLUSION: 1. Linear air-like density paralleling the left lateral wall of the urinary bl adder. This is likely within the wall as opposed to the lumen. This raises conc chantal for acute cystitis. Abdomen/Pelvis CT 12/17/17 2207 Signed Impressions: CONCLUSION: 1. Markedly distended bladder with mild to moderate bilateral hydronephrosis. 2. Rectal impaction measuring up to 8.5 cm in diameter. 3. Lobulated mass in left adnexal region extending into left lower quadrant si milar in appearance to August and October 2017. Cannot exclude a slow growing ovaria n neoplasm. Tubes & Lines: Sheikh (Meghan Iverson. FILTER TIP INSPECTOR) Physical Exam General Appearance: Well Developed, Well Nourished, Comfortable (EstebanlermannTikiMeghan M. FILTER TIP INSPECTOR) Eyes Eye Exam: Pupils Equal, Pupils Reactive (EstebanlermannTikiMeghan M. FILTER TIP INSPECTOR) Neck Neck Exam: Neck Supple (GellermannTikiMeghan M. FILTER TIP INSPECTOR) Pulmonary Resp Exam: Clear Bilaterally, Breath Sounds Equal (GellermannTikiMeghan M. FILTER TIP INSPECTOR) Cardiology CV Exam: Regular, Normal Sinus Rhythm, Good Perfusion (GellermannTikiMeghan M. FILTER TIP INSPECTOR) Gastrointestinal/Abdomen GI Exam: Soft, Positive Bowel Movement, Distended (EstebanlermannTikiMeghan M. FILTER TIP INSPECTOR) Musculoskeletal MS Exam: Joints Intact, Normal Tone (GellermannTikiMeghan M. FILTER TIP INSPECTOR) Integumentary Skin Exam: Warm, Dry, Intact (GellermannTikiMeghan M. FILTER TIP INSPECTOR) Extremeties Extremities Exam: No Edema, Pedal Pulses Palpable (EstebanlerTiki adamene M. FILTER TIP INSPECTOR) Neurologic Neuro Exam: Alert, Awake, Oriented, Speech Clear, Moving All Extremities (GellerTiki adamene M. FILTER TIP INSPECTOR) Assessment/Plan Discussed Condition With: Patient Assessment Summary: SANDY/Acute Renal Failure, Anemia of CKD, Hypertension Problem List: (1) SANDY (acute kidney injury) ICD Codes: N17.9 - Acute kidney failure, unspecified Status: Acute Plan: Her creatinine was normal in September. Since then she has had multiple episodes of SANDY due to chronic obstruction Her exact baseline is not known, creatinine was 3.37 at time of discharge last admission DKA has resolved. Now has renal hypoperfusion due to sepsis. Creatinine at 2.14 from 2.20 Avoid hypotension Avoid nephrotoxic agents, renally dose appropriate to renal status PO Fluids encouraged Will monitor urinary output and BMP (2) DKA (diabetic ketoacidoses) ICD Codes: E13.10 - Other specified diabetes mellitus with ketoacidosis without coma Status: Acute Plan: Improved. 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 Continue iron. (7) Fecal impaction ICD Codes: K56.41 - Fecal impaction Status: Resolved Plan: Enemas given, successful BM (Meghan Iverson) Problem List: (1) SANDY (acute kidney injury) ICD Codes: N17.9 - Acute kidney failure, unspecified Status: Acute Plan: Her creatinine was normal in September. Since then she has had multiple episodes of SANDY due to chronic obstruction Her exact baseline is not known, creatinine was 3.37 at time of discharge last admission DKA has resolved. Now has renal hypoperfusion due to sepsis. Creatinine at 2.14 from 2.20 Avoid hypotension Avoid nephrotoxic agents, renally dose appropriate to renal status PO Fluids encouraged Will monitor urinary output and BMP Patient seen and examined, agree with above. Creatinine is stable, patient Chronic kidney disease. (2) DKA (diabetic ketoacidoses) ICD Codes: E13.10 - Other specified diabetes mellitus with ketoacidosis without coma Status: Acute Plan: Improved. 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 Continue iron. (7) Fecal impaction ICD Codes: K56.41 - Fecal impaction Status: Resolved Plan: Enemas given, successful BM (Maicol Smith MD) Problem Qualifiers (1) DKA (diabetic ketoacidoses): Qualified Codes: E11.10 - Type 2 diabetes mellitus with ketoacidosis without coma (2) UTI (urinary tract infection): Qualified Codes: T83.511A - Infection and inflammatory reaction due to indwelling urethral catheter, initial encounter; N39.0 - Urinary tract infection , site not specified Meghan Iverson Dec 26, 2017 09:31 Maicol Smith MD Dec 26, 2017 21:27
--- NOTE | 2017-12-26 10:32 | HHI.PR ---
Subjective Remarks in no acute distress. afebrile. has some pain under the breasts. no other complaints. Objective Vitals Vital Signs Date Time Temp Pulse Resp B/P (MAP) Pulse Ox O2 Delivery O2 Flow Rate FiO2 12/26/17 08:00 98.1 103 19 144/75 (98) 100 12/26/17 07:30 20 12/26/17 04:00 97.7 104 18 149/71 (97) 100 12/26/17 00:00 98.0 91 17 154/82 (106) 99 12/25/17 21:51 98.3 103 17 175/81 (112) 99 12/25/17 17:52 97.9 98 19 146/121 (129) 98 12/25/17 12:00 97.7 117 19 120/88 (99) 100 I/O 12/25/17 12/25/17 12/25/17 12/26/17 12/26/17 12/26/17 07:00 15:00 23:00 07:00 15:00 23:00 Intake Total 1230 ml 940 ml 480 ml Output Total 4050 ml 2200 ml 3200 ml Balance -2820 ml -1260 ml -2720 ml Intake Oral 480 ml 840 ml 480 ml IV Total 750 ml 100 ml Output Urine Total 4050 ml 2200 ml 3200 ml # Bowel Movements 2 Result Diagram: 12/26/17 0653 12/26/17 0653 Objective Remarks GENERAL: This is a well-nourished, well-developed patient, in no apparent distress. CARDIOVASCULAR: Regular rate and regular rhythm without murmurs, gallops, or rubs. RESPIRATORY: Clear to auscultation. Breath sounds equal bilaterally. No wheezes , rales, or rhonchi. breasts; some tenderness under the breasts bilaterally. GASTROINTESTINAL: Abdomen soft, non-tender, nondistended. Normal, active bowel sounds MUSCULOSKELETAL: Extremities without clubbing, cyanosis, or edema. NEURO: Alert & Oriented x4 to person, place, time, situation. Moves all ext x4 Medications and IVs Inpatient Medications Acetaminophen (Tylenol) 650 mg Q6H PRN PO PAIN 1-10 AND/OR FEVER >101F; Start 12/17/17 at 23:15 Al Hydrox/Mg Hydrox/Simethicone (Mag-Al Plus Susp Liq) 30 ml Q6H PRN PO DYSPEPSIA OR HEARTBURN Last administered on 12/24/17at 01:35; Start 12/24/17 at 01:30 Albuterol/ Ipratropium (Duoneb Neb) 1 ampule Q2HR NEB PRN INH WHEEZING; Start 12/17/17 at 23:15 Bisacodyl (Dulcolax Supp) 10 mg DAILY PRN RECTAL SEVERE CONSITIPATION; Start at 23:15 Calcium Carbonate (Tums Chew) 500 mg Q6H PRN CHEW DYSPEPSIA OR HEARTBURN Last administered on 12/26/17at 06:09; Start 12/24/17 at 01:30 Cefepime HCl 2000 mg/Sodium Chloride 100 ml @ 200 mls/hr DAILY@1600 IV Last administered on 12/25/17at 15:55; Start 12/24/17 at 16:00 Chlorhexidine Gluconate (Chlorhexidine 2% Cloth) 3 pack UNSCH PRN TOP HYGIENIC CARE; Start 12/17/17 at 23:15 Dextrose (D50w (Vial) Inj) 25 ml UNSCH PRN IV HYPOGLYCEMIA-SEE COMMENTS; Start 12/19/17 at 02:30; Stop 12/19/17 at 02:30; Status DC Dextrose/Sodium Chloride 1,000 ml @ 200 mls/hr Q5H IV Last administered on at 08:24; Start 12/17/17 at 21:23; Stop 12/18/17 at 15:49; Status DC Duloxetine HCl (Cymbalta Dr) 30 mg DAILY PO Last administered on 12/21/17at 08: 39; Start 12/20/17 at 15:00 Fluconazole (Diflucan) 100 mg DAILY PO Last administered on 12/26/17at 08:52; Start 12/25/17 at 21:00 Glucagon (Glucagon Inj) 1 mg UNSCH PRN IM/SQ HYPOGLYCEMIA-SEE COMMENTS; Start 12/19/17 at 02:30 Insulin Aspart (NovoLOG SUPPLEMENTAL SCALE) 1 ACHS SQ Last administered on 12/26at 08:55; Start 12/19/17 at 08:00 Insulin Human Regular (NovoLIN R INJ) 8 units BOLUS ONCE IV PUSH Last administered on 12/17/17at 22:44; Start 12/17/17 at 21:30; Stop 12/17/17 at 21:41 ; Status DC Insulin Human Regular 100 units/ Sodium Chloride 100 ml @ 8 mls/hr TITRATE PRN IV Blood Sugar Management; Start 12/19/17 at 02:30; Stop 12/19/17 at 04:15; Status DC Insulin Human NPH (NovoLIN N INJ) 15 units ONCE ONCE SQ Last administered on at 02:57; Start 12/19/17 at 02:15; Stop 12/19/17 at 02:19; Status DC Iron Sucrose 100 mg/Sodium Chloride 105 ml @ 105 mls/hr DAILY IV Last administered on 12/19/17at 09:01; Start 12/18/17 at 09:00; Stop 12/19/17 at 09:46 ; Status DC Lactulose (Lactulose Liq) 30 ml DAILY PRN PO SEVERE CONSITIPATION; Start at 23:15 Levofloxacin (Levaquin) 500 mg Q48H PO Last administered on 12/23/17at 16:04; Start 12/23/17 at 16:00; Stop 12/25/17 at 17:43; Status DC Linezolid (Zyvox) 600 mg Q12HR PO Last administered on 12/26/17at 08:52; Start 12/25/17 at 21:00 Magnesium Hydroxide (Milk Of Magnesia Liq) 30 ml ONCE ONCE PO ; Start 12/22/17 at 08:45; Stop 12/22/17 at 08:55; Status DC Magnesium Oxide (Mag-Ox) 400 mg ONCE ONCE PO Last administered on 12/23/17at 07 :01; Start 12/23/17 at 06:00; Stop 12/23/17 at 06:01; Status DC Metoclopramide HCl (Reglan Inj) 5 mg ONCE ONCE IV PUSH Last administered on at 21:35; Start 12/17/17 at 20:30; Stop 12/17/17 at 20:33; Status DC Mineral Oil (Fleet Mineral Oil Enema) 118 ml DAILY RECTAL ; Start 12/18/17 at 11 :30 Miscellaneous Information (MISC DC previous DKA orders) 1 ONCE ONCE .XX Last administered on 12/19/17at 02:15; Start 12/19/17 at 02:15; Stop 12/19/17 at 02:18 ; Status DC Miscellaneous Information ([facility] DC Insulin 2 hrs post Levemir) 1 ONCE ONCE .XX Last administered on 12/19/17at 02:15; Start 12/19/17 at 02:15; Stop 12/19/17 at 02:18; Status DC Miscellaneous Information ([facility] Nursing Information) 1 Q361D XX Last administered on 12/18/17 02:57; Start 12/17/17 at 23:15 Morphine Sulfate (Morphine Inj) 4 mg ONCE ONCE IV PUSH Last administered on at 21:39; Start 12/17/17 at 20:30; Stop 12/17/17 at 20:33; Status DC Nystatin (Mycostatin Powder) 1 applic Q8HR TOPICAL Last administered on 06:10; Start 12/25/17 at 22:00; Stop 01/11/18 at 09:00 Ondansetron HCl (Zofran Odt) 4 mg Q6H PRN PO NAUSEA OR VOMITING Last administered on 12/24/17at 08:48; Start 12/17/17 at 23:45 Oxycodone/ Acetaminophen (Percocet 5-325 Mg) 1 tab Q4H PRN PO pain scale 3-10 Last administered on 12/26/17at 06:10; Start 12/18/17 at 02:30 Pantoprazole Sodium (Protonix) 40 mg DAILY PO Last administered on 12/26/17 08 :53; Start 12/18/17 at 09:00 Piperacillin Sod/ Tazobactam Sod 50 ml @ 100 mls/hr Q8H IV Last administered on 12/21/17at 08:38; Start 12/18/17 at 08:00; Stop 12/21/17 at 14:54; Status DC Potassium Bicarb/ Potassium Chloride (K-Lyte Cl Eff) 50 meq ONCE ONCE PO Last administered on 12/24/17at 18:11; Start 12/24/17 at 16:15; Stop 12/24/17 at 16:16; Status DC Potassium Chloride 100 ml @ 50 mls/hr Q2H PRN IV SEE LABEL COMMENTS; Start at 21:30; Stop 12/19/17 at 02:22; Status DC Senna/Docusate Sodium (Debi-Colace) 1 tab BID PO Last administered on at 09:12; Start 12/22/17 at 09:00 Sennosides (Senokot) 17.2 mg Q12H PRN PO Moderate constipation; Start 12/17/17 at 23:15 Simethicone (Mylicon Chew) 80 mg PCHS PRN CHEW flatus/gas Last administered on 12/25/17at 18:43; Start 12/24/17 at 01:30 Sodium Bicarbonate 100 meq/Sterile Water 1,000 ml @ 75 mls/hr [id number] IV ; Start 12/18/17 at 11:00; Stop 12/18/17 at 11:02; Status DC Sodium Bicarbonate 150 meq/Sterile Water 1,000 ml @ 45 mls/hr [id number] IV Last administered on 12/24/17at 00:34; Start 12/19/17 at 10:00; Stop 12/24/17 at 16:30 ; Status DC Sodium Bicarbonate (Sodium Bicarbonate 8.4% Inj) 50 meq UNSCH PRN IV PUSH SEE LABEL COMMENTS; Start 12/17/17 at 21:30; Stop 12/19/17 at 02:22; Status DC Sodium Chloride 1,000 ml @ 84 mls/hr [id number] IV Last administered on at 11:27; Start 12/23/17 at 14:15; Stop 12/25/17 at 15:39; Status DC Sodium Chloride (NS Flush) 2 ml BID IV FLUSH Last administered on 12/26/17at 08: 55; Start 12/18/17 at 09:00 Sodium Phosphate 15 mmol/Sodium Chloride 105 ml @ 25 mls/hr UNSCH PRN IV SEE LABEL COMMENTS; Start 12/17/17 at 21:30; Stop 12/19/17 at 02:22; Status DC Vancomycin HCl 1000 mg/Sodium Chloride 250 ml @ 250 mls/hr ONCE ONCE IV Last administered on 12/18/17at 02:57; Start 12/17/17 at 23:15; Stop 12/18/17 at 00:14 ; Status DC Vitamin B Complex/ Vit C/Folic Acid (Nephrocaps) 1 cap DAILY PO Last administered on 12/26/17at 08:53; Start 12/18/17 at 09:00 A/P Assessment and Plan A/P Sepsis secondary to gram-negative UTI, slowly improving Gram-negative bacteremia. Klebsiella Continue antibiotics. Repeated cultures from 12/24 negative so far. Can take levofloxacin to complete treatment course- per ID recommendations. breast cellulitis; started on Zyvox- continue to monitor. DKA -blood glucose improved- continue NPH with insulin siding scale. Pelvic mass with impaction. Continue laxatives. Gynecology/oncology following. Appreciate assistance. SANDY on CKD: Creatinine stable. Nephrology following. Continue to monitor. Hypertension blood pressure acceptable. Continue to monitor. Severe anemia -required 1 unit of PRBC transfusion Hemoglobin stable. Continue to monitor. Discharge Planning d/w ; possible dc to rehab tomorrow if stable. Esdras Mathur MD Dec 26, 2017 10:32
[2017-12-26 12:00] VITALS: BP 161/84; PULSE 94; RESP 19; TEMP 98; O2SAT 100
[2017-12-26] MEDS: CEFEPIME INJ 2,000 MG in SODIUM CHLORIDE 0.9% INJ 100 ML IV SCH (15:45)
[2017-12-26 16:00] VITALS: BP 168/80; PULSE 99; RESP 19; TEMP 97.9; O2SAT 100
[2017-12-26 20:00] VITALS: BP 152/67; PULSE 100; RESP 18; TEMP 98.9; O2SAT 100
[2017-12-26] MEDS: SIMETHICONE 80 MG CHEWABLE TAB CHEW PRN (22:42)
[2017-12-26] MEDS: CHLORHEXIDINE GLUCONATE 2 % 1 PACK (2 CLOTHS) TOP SCH (23:55)
[2017-12-27] VITALS: BP 146/70; PULSE 104; RESP 19; TEMP 98; O2SAT 96
[2017-12-27 04:00] VITALS: BP 158/79; PULSE 100; RESP 18; TEMP 98.3; O2SAT 100
[2017-12-27] MEDS: oxyCODONE/ACETAMINOPHEN 5 MG/325 MG TAB PO PRN ×3 (04:32→14:26)
[2017-12-27] MEDS: CALCIUM CARBONATE 500 MG CHEWABLE TAB CHEW PRN (04:32)
[2017-12-27] MEDS: NYSTATIN 100,000 U/GM PWD 15 GM BTL TOPICAL SCH ×2 (04:34→13:52)
[2017-12-27 06:20] LABS: AUTOMATED NEUTROPHIL # 11.7 TH/MM3 (1.8-7.7); BASOPHIL # 0.1 TH/MM3 (0-0.2); BASOPHIL % 0.7 % (0.0-2.0); EOSINOPHIL # 0.1 TH/MM3 (0-0.4); EOSINOPHIL % 0.8 % (0.0-4.0); HEMATOCRIT 25.5 % (35.0-46.0); LYMPH % 14.1 % (9.0-44.0); LYMPHOCYTE # 2.1 TH/MM3 (1.0-4.8); MEAN CELL VOLUME 70.7 FL (80.0-100.0); MEAN CORPUSCULAR HEMOGLOBIN 22.3 PG (27.0-34.0); MEAN CORPUSCULAR HGB CONC 31.5 % (32.0-36.0); MEAN PLATELET VOLUME 7.4 FL (7.0-11.0); MONO % 4.6 % (0.0-8.0); MONOCYTE # 0.7 TH/MM3 (0-0.9); NEUT % 79.8 % (16.0-70.0); PLATELET COUNT 467 TH/MM3 (150-450); RED BLOOD COUNT 3.61 MIL/MM3 (4.00-5.30); RED CELL DISTRIBUTION WIDTH 18.3 % (11.6-17.2); WHITE BLOOD COUNT 14.6 TH/MM3 (4.0-11.0)
[2017-12-27 06:30] LABS: BICARBONATE 24.8 MEQ/L (21.0-32.0); CALCIUM 8.8 MG/DL (8.5-10.1); CREATININE 1.98 MG/DL (0.50-1.00)
[2017-12-27] MEDS: INSULIN ASPART SUPPLEMENTAL SCALE SQ SCH ×2 (07:25→13:51)
[2017-12-27 08:00] VITALS: BP 145/69; PULSE 108; RESP 19; TEMP 98.2; O2SAT 96
[2017-12-27] MEDS: INSULIN HUMAN NPH 1,000 UNITS/10 ML VIAL SQ SCH (08:00)
[2017-12-27] MEDS: FLUCONAZOLE 100 MG TAB PO SCH (08:24)
[2017-12-27] MEDS: SIMETHICONE 80 MG CHEWABLE TAB CHEW PRN ×2 (08:24→14:26)
[2017-12-27] MEDS: PANTOPRAZOLE SOD 40 MG DELAYED RELEASE TAB PO SCH (08:24)
[2017-12-27] MEDS: LINEZOLID 600 MG TAB PO SCH (08:24)
[2017-12-27] MEDS: VITAMIN B CMPLX/VITC/FOLIC AC CAP PO SCH (08:24)
[2017-12-27] MEDS: DULoxetine HCl DR 30 MG CAP PO SCH (08:25)
[2017-12-27] MEDS: DOCUSATE SODIUM 50 MG/SENNA 8.6 MG TAB PO SCH (08:25)
[2017-12-27] MEDS: MINERAL OIL ENEMA 118 ML BTL RECTAL SCH (08:25)
[2017-12-27] MEDS: SODIUM CHLORIDE 0.9% FLUSH 10 ML FLUSH IV FLUSH SCH (08:25)
--- NOTE | 2017-12-27 10:41 | HHI.PR ---
Subjective Remarks in no acute distress. no fever. still with some pain under the breasts. no fever. Objective Vitals Vital Signs Date Time Temp Pulse Resp B/P (MAP) Pulse Ox O2 Delivery O2 Flow Rate FiO2 12/27/17 09:37 20 12/27/17 08:00 98.2 108 19 145/69 (94) 96 12/27/17 04:00 98.3 100 18 158/79 (105) 100 12/27/17 00:00 98.0 104 19 146/70 (95) 96 12/26/17 20:00 98.9 100 18 152/67 (95) 100 12/26/17 16:00 97.9 99 19 168/80 (109) 100 12/26/17 12:00 98.0 94 19 161/84 (109) 100 I/O 12/26/17 12/26/17 12/26/17 12/27/17 12/27/17 12/27/17 07:00 15:00 23:00 07:00 15:00 23:00 Intake Total 480 ml 960 ml 1600 ml Output Total 3200 ml 3500 ml Balance -2720 ml -2540 ml 1600 ml Intake Oral 480 ml 960 ml 1600 ml Output Urine Total 3200 ml 3500 ml # Voids 2 # Bowel Movements 0 2 Result Diagram: 12/27/17 0549 12/27/17 0549 Objective Remarks GENERAL: This is a well-nourished, well-developed patient, in no apparent distress. CARDIOVASCULAR: Regular rate and regular rhythm without murmurs, gallops, or rubs. RESPIRATORY: Clear to auscultation. Breath sounds equal bilaterally. No wheezes , rales, or rhonchi. breasts; some tenderness under the breasts bilaterally. GASTROINTESTINAL: Abdomen soft, non-tender, nondistended. Normal, active bowel sounds MUSCULOSKELETAL: Extremities without clubbing, cyanosis, or edema. NEURO: Alert & Oriented x4 to person, place, time, situation. Moves all ext x4 Medications and IVs Inpatient Medications Acetaminophen (Tylenol) 650 mg Q6H PRN PO PAIN 1-10 AND/OR FEVER >101F; Start 12/17/17 at 23:15 Al Hydrox/Mg Hydrox/Simethicone (Mag-Al Plus Susp Liq) 30 ml Q6H PRN PO DYSPEPSIA OR HEARTBURN Last administered on 12/24/17at 01:35; Start 12/24/17 at 01:30 Albuterol/ Ipratropium (Duoneb Neb) 1 ampule Q2HR NEB PRN INH WHEEZING; Start 12/17/17 at 23:15 Bisacodyl (Dulcolax Supp) 10 mg DAILY PRN RECTAL SEVERE CONSITIPATION; Start at 23:15 Calcium Carbonate (Tums Chew) 500 mg Q6H PRN CHEW DYSPEPSIA OR HEARTBURN Last administered on 12/27/17at 04:32; Start 12/24/17 at 01:30 Cefepime HCl 2000 mg/Sodium Chloride 100 ml @ 200 mls/hr DAILY@1600 IV Last administered on 12/26/17at 15:45; Start 12/24/17 at 16:00; Stop 12/26/17 at 22:35 ; Status DC Chlorhexidine Gluconate (Chlorhexidine 2% Cloth) 3 pack UNSCH PRN TOP HYGIENIC CARE; Start 12/17/17 at 23:15 Dextrose (D50w (Vial) Inj) 25 ml UNSCH PRN IV HYPOGLYCEMIA-SEE COMMENTS; Start 12/19/17 at 02:30; Stop 12/19/17 at 02:30; Status DC Dextrose/Sodium Chloride 1,000 ml @ 200 mls/hr Q5H IV Last administered on at 08:24; Start 12/17/17 at 21:23; Stop 12/18/17 at 15:49; Status DC Duloxetine HCl (Cymbalta Dr) 30 mg DAILY PO Last administered on 12/21/17at 08: 39; Start 12/20/17 at 15:00 Fluconazole (Diflucan) 100 mg DAILY PO Last administered on 12/27/17at 08:24; Start 12/25/17 at 21:00 Glucagon (Glucagon Inj) 1 mg UNSCH PRN IM/SQ HYPOGLYCEMIA-SEE COMMENTS; Start 12/19/17 at 02:30 Insulin Aspart (NovoLOG SUPPLEMENTAL SCALE) 1 ACHS SQ Last administered on 12/26at 22:48; Start 12/19/17 at 08:00 Insulin Human Regular (NovoLIN R INJ) 8 units BOLUS ONCE IV PUSH Last administered on 12/17/17at 22:44; Start 12/17/17 at 21:30; Stop 12/17/17 at 21:41 ; Status DC Insulin Human Regular 100 units/ Sodium Chloride 100 ml @ 8 mls/hr TITRATE PRN IV Blood Sugar Management; Start 12/19/17 at 02:30; Stop 12/19/17 at 04:15; Status DC Insulin Human NPH (NovoLIN N INJ) 15 units ONCE ONCE SQ Last administered on at 02:57; Start 12/19/17 at 02:15; Stop 12/19/17 at 02:19; Status DC Iron Sucrose 100 mg/Sodium Chloride 105 ml @ 105 mls/hr DAILY IV Last administered on 12/19/17at 09:01; Start 12/18/17 at 09:00; Stop 12/19/17 at 09:46 ; Status DC Lactulose (Lactulose Liq) 30 ml DAILY PRN PO SEVERE CONSITIPATION; Start at 23:15 Levofloxacin (Levaquin) 500 mg Q48H PO Last administered on 12/23/17at 16:04; Start 12/23/17 at 16:00; Stop 12/25/17 at 17:43; Status DC Linezolid (Zyvox) 600 mg Q12HR PO Last administered on 12/27/17at 08:24; Start 12/25/17 at 21:00 Magnesium Hydroxide (Milk Of Magnesia Liq) 30 ml ONCE ONCE PO ; Start 12/22/17 at 08:45; Stop 12/22/17 at 08:55; Status DC Magnesium Oxide (Mag-Ox) 400 mg ONCE ONCE PO Last administered on 12/23/17at 07 :01; Start 12/23/17 at 06:00; Stop 12/23/17 at 06:01; Status DC Metoclopramide HCl (Reglan Inj) 5 mg ONCE ONCE IV PUSH Last administered on at 21:35; Start 12/17/17 at 20:30; Stop 12/17/17 at 20:33; Status DC Mineral Oil (Fleet Mineral Oil Enema) 118 ml DAILY RECTAL ; Start 12/18/17 at 11 :30 Miscellaneous Information (MISC DC previous DKA orders) 1 ONCE ONCE .XX Last administered on 12/19/17at 02:15; Start 12/19/17 at 02:15; Stop 12/19/17 at 02:18 ; Status DC Miscellaneous Information ([facility] DC Insulin 2 hrs post Levemir) 1 ONCE ONCE .XX Last administered on 12/19/17 02:15; Start 12/19/17 at 02:15; Stop 12/19/17 at 02:18; Status DC Miscellaneous Information ([facility] Nursing Information) 1 Q361D XX Last administered on 12/18/17 02:57; Start 12/17/17 at 23:15 Morphine Sulfate (Morphine Inj) 4 mg ONCE ONCE IV PUSH Last administered on 21:39; Start 12/17/17 at 20:30; Stop 12/17/17 at 20:33; Status DC Nystatin (Mycostatin Powder) 1 applic Q8HR TOPICAL Last administered on 04:34; Start 12/25/17 at 22:00; Stop 01/11/18 at 09:00 Ondansetron HCl (Zofran Odt) 4 mg Q6H PRN PO NAUSEA OR VOMITING Last administered on 12/24/17 08:48; Start 12/17/17 at 23:45 Oxycodone/ Acetaminophen (Percocet 5-325 Mg) 1 tab Q4H PRN PO pain scale 3-10 Last administered on 12/27/17 08:24; Start 12/18/17 at 02:30 Pantoprazole Sodium (Protonix) 40 mg DAILY PO Last administered on 12/27/17 08 :24; Start 12/18/17 at 09:00 Piperacillin Sod/ Tazobactam Sod 50 ml @ 100 mls/hr Q8H IV Last administered on 12/21/17at 08:38; Start 12/18/17 at 08:00; Stop 12/21/17 at 14:54; Status DC Potassium Bicarb/ Potassium Chloride (K-Lyte Cl Eff) 50 meq ONCE ONCE PO Last administered on 12/24/17 18:11; Start 12/24/17 at 16:15; Stop 12/24/17 at 16:16; Status DC Potassium Chloride 100 ml @ 50 mls/hr Q2H PRN IV SEE LABEL COMMENTS; Start at 21:30; Stop 12/19/17 at 02:22; Status DC Senna/Docusate Sodium (Debi-Colace) 1 tab BID PO Last administered on at 09:12; Start 12/22/17 at 09:00 Sennosides (Senokot) 17.2 mg Q12H PRN PO Moderate constipation; Start 12/17/17 at 23:15 Simethicone (Mylicon Chew) 80 mg PCHS PRN CHEW flatus/gas Last administered on 12/27/17at 08:24; Start 12/24/17 at 01:30 Sodium Bicarbonate 100 meq/Sterile Water 1,000 ml @ 75 mls/hr [id number] IV ; Start 12/18/17 at 11:00; Stop 12/18/17 at 11:02; Status DC Sodium Bicarbonate 150 meq/Sterile Water 1,000 ml @ 45 mls/hr [id number] IV Last administered on 12/24/17at 00:34; Start 12/19/17 at 10:00; Stop 12/24/17 at 16:30 ; Status DC Sodium Bicarbonate (Sodium Bicarbonate 8.4% Inj) 50 meq UNSCH PRN IV PUSH SEE LABEL COMMENTS; Start 12/17/17 at 21:30; Stop 12/19/17 at 02:22; Status DC Sodium Chloride 1,000 ml @ 84 mls/hr [id number] IV Last administered on at 11:27; Start 12/23/17 at 14:15; Stop 12/25/17 at 15:39; Status DC Sodium Chloride (NS Flush) 2 ml BID IV FLUSH Last administered on 12/27/17at 08: 25; Start 12/18/17 at 09:00 Sodium Phosphate 15 mmol/Sodium Chloride 105 ml @ 25 mls/hr UNSCH PRN IV SEE LABEL COMMENTS; Start 12/17/17 at 21:30; Stop 12/19/17 at 02:22; Status DC Vancomycin HCl 1000 mg/Sodium Chloride 250 ml @ 250 mls/hr ONCE ONCE IV Last administered on 12/18/17at 02:57; Start 12/17/17 at 23:15; Stop 12/18/17 at 00:14 ; Status DC Vitamin B Complex/ Vit C/Folic Acid (Nephrocaps) 1 cap DAILY PO Last administered on 12/27/17at 08:24; Start 12/18/17 at 09:00 A/P Assessment and Plan A/P Sepsis secondary to gram-negative UTI, slowly improving Gram-negative bacteremia. Klebsiella Continue antibiotics. Repeated cultures from 12/24 negative so far. Can take levofloxacin to complete treatment course- per ID recommendations. breast cellulitis; started on Zyvox- continue to monitor. DKA -blood glucose improved- continue NPH with insulin siding scale. Pelvic mass with impaction. Continue laxatives. Gynecology/oncology following. Appreciate assistance. SANDY on CKD: Creatinine stable. Nephrology following. Continue to monitor. Hypertension blood pressure acceptable. Continue to monitor. Severe anemia -required 1 unit of PRBC transfusion Hemoglobin stable. Continue to monitor. Discharge Planning d/w ; will discharge on PO levaquin, Zyvox and Diflucan. see med list. f/u; pcp, hematology, urology and [employer]. d/w the patient. time spent 35 min. Esdras Mathur MD Dec 27, 2017 10:41
[2017-12-27] MEDS ORDERED: NOVONP2 SQ (10:43)
[2017-12-27] MEDS ORDERED: NOVOLOGP2 SQ ×2 (10:43→10:44)
[2017-12-27] MEDS ORDERED: NEPHRO PO (10:43)
[2017-12-27] MEDS ORDERED: DULO1CAP2 PO ×2 (10:43→14:29)
[2017-12-27] MEDS ORDERED: OXYC1TAB63 PO (10:46)
--- NOTE | 2017-12-27 10:46 | HHI.NPPN ---
Subjective General Problems: Anemia Renal Failure: Chronic, Acute Additional Remarks Reports nausea and abdominal tenderness. Creatinine continues to improve. No Shortness of breath or edema. Review of Systems General Constitutional: Fatigue Respiratory Respiratory Remarks Denies any SOB Cardiovascular Cardiac Remarks Denies chest pain Gastrointestinal GI Remarks Mild abdominal discomfort Musculoskeletal MS: Pain/Stiffness Skin Skin: Skin Rash Objective Data Data Vital Signs Date Time Temp Pulse Resp B/P (MAP) Pulse Ox O2 Delivery O2 Flow Rate FiO2 12/27/17 09:37 20 12/27/17 08:00 98.2 108 19 145/69 (94) 96 12/27/17 04:00 98.3 100 18 158/79 (105) 100 12/27/17 00:00 98.0 104 19 146/70 (95) 96 12/26/17 20:00 98.9 100 18 152/67 (95) 100 12/26/17 16:00 97.9 99 19 168/80 (109) 100 12/26/17 12:00 98.0 94 19 161/84 (109) 100 -: 12/27/17 0549 12/27/17 0549 Tubes & Lines: Sheikh Physical Exam General Appearance: Well Developed, Well Nourished, Comfortable Eyes Eye Exam: Pupils Equal, Pupils Reactive Neck Neck Exam: Neck Supple Pulmonary Resp Exam: Clear Bilaterally, Breath Sounds Equal Cardiology CV Exam: Regular, Normal Sinus Rhythm, Good Perfusion Gastrointestinal/Abdomen GI Exam: Soft, Positive Bowel Movement, Distended Musculoskeletal MS Exam: Joints Intact, Normal Tone Integumentary Skin Exam: Warm, Dry, Intact Extremeties Extremities Exam: No Edema, Pedal Pulses Palpable Neurologic Neuro Exam: Alert, Awake, Oriented, Speech Clear, Moving All Extremities Assessment/Plan Discussed Condition With: Patient Assessment Summary: SANDY/Acute Renal Failure, Anemia of CKD, Hypertension Problem List: (1) SANDY (acute kidney injury) ICD Codes: N17.9 - Acute kidney failure, unspecified Status: Acute Plan: Her creatinine was normal in September. Since then she has had multiple episodes of SANDY due to chronic obstruction Her exact baseline is not known, creatinine was 3.37 at time of discharge last admission DKA has resolved. Now has renal hypoperfusion due to sepsis. Creatinine improving at 1.98 today Avoid hypotension Avoid nephrotoxic agents, renally dose appropriate to renal status PO Fluids encouraged Will monitor urinary output and BMP Possible discharge to rehab (2) DKA (diabetic ketoacidoses) ICD Codes: E13.10 - Other specified diabetes mellitus with ketoacidosis without coma Status: Acute Plan: Improved. 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 Continue iron. (7) Fecal impaction ICD Codes: K56.41 - Fecal impaction Status: Resolved Plan: Enemas given, successful BM Problem Qualifiers (1) DKA (diabetic ketoacidoses): Qualified Codes: E11.10 - Type 2 diabetes mellitus with ketoacidosis without coma (2) UTI (urinary tract infection): Qualified Codes: T83.511A - Infection and inflammatory reaction due to indwelling urethral catheter, initial encounter; N39.0 - Urinary tract infection , site not specified Meghan Iverson Dec 27, 2017 10:46
[2017-12-27 12:00] VITALS: BP 111/56; PULSE 97; RESP 18; TEMP 98.4; O2SAT 96
[2017-12-27] MEDS ORDERED: DIFL100T PO (13:54)
[2017-12-27] MEDS ORDERED: ZYVO600T PO (13:54)
[2017-12-27] MEDS ORDERED: LEVA250T14 PO (13:54)
[2017-12-27] MEDS ORDERED: LEVOFLOXACIN 500 MG TAB PO SCH (14:00)
--- NOTE | 2017-12-27 14:08 | HHI.DS ---
Discharge Summary Admission Date Dec 17, 2017 at 23:09 Discharge Date: Dec 27, 2017 Admitting Diagnosis DKA, hyponatremia (1) DKA (diabetic ketoacidoses) ICD Code: E13.10 - Other specified diabetes mellitus with ketoacidosis without coma Diagnosis: Principal Status: Acute (2) Sepsis ICD Code: A41.9 - Sepsis, unspecified organism Diagnosis: Principal Status: Acute Procedures none Brief History - From Admission History of Present Illness HPI The patient is a 57 year old female who presents to the [facility] emergency department with a history of reportedly feeling unwell since Sunday. She reports that she has had nausea and vomiting since Sunday. She has vomited in total 3 times on 12/17. She denies having bilious vomit. She denies having any hematemesis. She reports that she has been moving her bowels daily, however she does have a problem with constipation and is using a stool softener. She denies having any blood in her stool or black or tarry stools. She reports that she is planning to have a D&C soon done by Dr. Samano. She is unsure why. The patient reports that since August she has also been self cathing, however she is unsure why she is unable to completely evacuate her bladder. She reports that she was told that she would need a Sheikh catheter, however she refused and instead is self cathing. The patient reports having generalized abdominal pain that she has difficulty describing the character of or any other details regarding the abdominal pain. Unfortunately, the patient is a poor historian. The patient reports that her primary care physician is Dr. Hernandez. She has not seen Dr. Hernandez since August. She reports that she does have home health that comes out. She reports that in August her primary care physician discontinued her diabetic medication for unknown reason. Ambulance services brought the patient in the reports that her blood sugar was critically high prior to arrival. The patient was started on normal saline IV fluids and transported to this facility. She denies having any known recent fevers, cough or congestion, neck pain, chest pain, shortness of breath, or neurologic symptoms. The patient incidentally also reports that she was diagnosed with a urinary tract infection on November 28, however Dr. Hernandez has not started her on antibiotic yet. Patient stated that she was brought to the ER by [facility] due to progressive generalized weakness. She was noted to have a fingerstick glucose in the 1000 range and blood glucose in the ER was in the 700s with a metabolic acidosis. Patient was started on DKA protocol by ER physician. She was noted to have a leukocytosis and cloudy urine with suspicion of a UTI hence after obtaining cultures she was initiated on IV Zosyn and received a dose of vancomycin in the ER. When I evaluated the patient she was resting in bed comfortably and denies any chest pain shortness of breath nausea, palpitations. History PFSH Past Medical History Narrative Medical The patient's past medical history is significant for renal failure during laboratory studies done on an outpatient lab done at this facility on November 08 with a creatinine of 6. The patient reports being unaware of this. The patient is self catheterizing. The patient last self catheterized this morning . The patient has a history of anxiety disorder, diabetes mellitus, Acid reflux , hyperlipidemia, hypertension, multiple pelvic masses being followed by Dr. Samano Hx Anticoagulant Therapy: No Anxiety: Yes Depression: Yes Cancer: Yes Cardiovascular Problems: Yes High Cholesterol: Yes Chemotherapy: No Cerebrovascular Accident: No Diabetes: Yes Patient Takes Glucophage: No Diminished Hearing: No Endocrine: Yes Gastrointestinal Disorders: Yes (GERD) GERD: Yes Genitourinary: No Hypertension: Yes Immune Disorder: No Musculoskeletal: Yes Neurologic: No Psychiatric: Yes Reproductive: No Respiratory: Yes Immunizations Current: No Ulcer: Yes ?: Not : 1 Para: 1 Past Surgical History Narrative Surgical The patient's past surgical history is significant for right ankle ORIF, left knee surgery Body Medical Devices: METAL IN R ANKLE Hysterectomy: No Other Surgery: Yes Social History Alcohol Use: No Tobacco Use: Yes (Occasional smoker) Substance Use: No Allergies-Medications Allergies-Medications (Allergen,Severity, Reaction): Coded Allergies: No Known Allergies (Verified Allergy, Unknown, 10/30/17) Reported Meds & Prescriptions Reported Meds & Active Scripts Active ROS Review of Systems General / Constitutional: No: Fever Eyes: No: Visual changes HENT: No: Headaches, Congestion Cardiovascular: No: Chest Pain or Discomfort, Dyspnea on exertion Respiratory: No: Cough, Shortness of Breath Gastrointestinal: Positive: Nausea, Vomiting, Abdominal Pain, Constipation, No : Diarrhea, Hematemesis, Hematochezia, Changes in Bowel Habits, Indigestion, Loss of Appetite Genitourinary: Positive: Dysuria, Decreased Urinary Output, Hesitancy, No: Flank Pain Musculoskeletal: No: Pain Skin: No Rash Neurologic: Positive: Weakness (The patient reports having generalized weakness ), No: Focal Abnormalities, Change in Mentation, Slurred Speech, Sensory Disturbance Psychiatric: No: Depression Endocrine: No: Polydipsia Hematologic/Lymphatic: No: Easy Bruising CBC/BMP: 12/27/17 0549 12/27/17 0549 Significant Findings Laboratory Tests Test 12/25/17 07:56 12/26/17 06:53 12/26/17 13:42 12/27/17 05:49 White Blood Count 17.0 TH/MM3 (4.0-11.0) 15.0 TH/MM3 (4.0-11.0) 14.6 TH/MM3 (4.0-11.0) Red Blood Count 3.62 MIL/MM3 (4.00-5.30) 3.65 MIL/MM3 (4.00-5.30) 3.61 MIL/MM3 (4.00-5.30) Hemoglobin 8.0 GM/DL (11.6-15.3) 8.1 GM/DL (11.6-15.3) 8.0 GM/DL (11.6-15.3) Hematocrit 25.6 % (35.0-46.0) 25.9 % (35.0-46.0) 25.5 % (35.0-46.0) Mean Corpuscular Volume 70.8 FL (80.0-100.0) 70.9 FL (80.0-100.0) 70.7 FL (80.0-100.0) Mean Corpuscular Hemoglobin 22.0 PG (27.0-34.0) 22.0 PG (27.0-34.0) 22.3 PG (27.0-34.0) Mean Corpuscular Hemoglobin Concent 31.2 % (32.0-36.0) 31.1 % (32.0-36.0) 31.5 % (32.0-36.0) Red Cell Distribution Width 17.7 % (11.6-17.2) 18.9 % (11.6-17.2) 18.3 % (11.6-17.2) Platelet Count 453 TH/MM3 (150-450) 467 TH/MM3 (150-450) Neutrophils (%) (Auto) 80.7 % (16.0-70.0) 81.5 % (16.0-70.0) 79.8 % (16.0-70.0) Neutrophils # (Auto) 13.8 TH/MM3 (1.8-7.7) 12.2 TH/MM3 (1.8-7.7) 11.7 TH/MM3 (1.8-7.7) Target Cells 1+ (NORMAL) Blood Urea Nitrogen 26 MG/DL (7-18) 25 MG/DL (7-18) 22 MG/DL (7-18) Creatinine 2.21 MG/DL (0.50-1.00) 2.14 MG/DL (0.50-1.00) 1.98 MG/DL (0.50-1.00) Random Glucose 128 MG/DL (74-106) 220 MG/DL (74-106) Albumin 1.9 GM/DL (3.4-5.0) 1.9 GM/DL (3.4-5.0) Phosphorus Level 2.4 MG/DL (2.5-4.9) Alkaline Phosphatase 458 U/L (45-117) 454 U/L (45-117) Aspartate Amino Transf (AST/SGOT) 53 U/L (15-37) 42 U/L (15-37) Alanine Aminotransferase (ALT/SGPT) 54 U/L (10-53) Estimat Glomerular Filtration Rate 28 ML/MIN (>89) 29 ML/MIN (>89) 31 ML/MIN (>89) Neutrophils % (Manual) 76 % (16-70) Neutrophils # (Manual) 12.6 TH/MM3 (1.8-7.7) Myelocytes 2 % (0-0) Troponin I LESS THAN 0.02 NG/ML Imaging Last Impressions Chest X-Ray 12/24/17 0600 Signed Impressions: CONCLUSION: No acute cardiopulmonary process. Abdomen X-Ray 12/20/17 0000 Signed Impressions: CONCLUSION: 1. Linear air-like density paralleling the left lateral wall of the urinary bl adder. This is likely within the wall as opposed to the lumen. This raises conc chantal for acute cystitis. Abdomen/Pelvis CT 12/17/172206 Signed Impressions: CONCLUSION: 1. Markedly distended bladder with mild to moderate bilateral hydronephrosis. 2. Rectal impaction measuring up to 8.5 cm in diameter. 3. Lobulated mass in left adnexal region extending into left lower quadrant si milar in appearance to August and October 2017. Cannot exclude a slow growing ovaria n neoplasm. PE at Discharge GENERAL: This is a well-nourished, well-developed patient, in no apparent distress. CARDIOVASCULAR: Regular rate and regular rhythm without murmurs, gallops, or rubs. RESPIRATORY: Clear to auscultation. Breath sounds equal bilaterally. No wheezes , rales, or rhonchi. breasts; some tenderness under the breasts bilaterally. GASTROINTESTINAL: Abdomen soft, non-tender, nondistended. Normal, active bowel sounds MUSCULOSKELETAL: Extremities without clubbing, cyanosis, or edema. NEURO: Alert & Oriented x4 to person, place, time, situation. Moves all ext x4 Hospital Course patient was admitted with sepsis secondary to gram-negative UTI along with Klebsiella.she was found to have breast cellulitis. she will be discharged on levaquin, zyvox and diflucan.she was also found to have DKA which has resolved. continue NPH with insulin siding scale. she was evaluated for pelvic mass for which she will have outpatient w/u. she received PRBC transfusion for anemia and H/H improved. Pt Condition on Discharge: Stable Discharge Disposition: Discharge to SNF Discharge Time: > 30 minutes Discharge Instructions DIET: Follow Instructions for: Heart Healthy Diet, Diabetic Diet Activities you can perform: Regular-No Restrictions Esdras Mathur MD Dec 27, 2017 14:08
[2017-12-27] MEDS ORDERED: cloNIDine HCL 0.1 MG TAB PO PRN (14:30)
[2017-12-27] MEDS ORDERED: LACTCAP8 PO (14:33)
--- NOTE | 2017-12-27 15:30 | HHI.IDPN ---
Subjective Subjective Remarks is a 57 y/o CF known to me from prior admission. Patient was previously hospitalized for E. coli ESBL bacteremia as well as UTI. At that time patient was diagnosed to have a uterine adnexal mass and urology as well as [employer] oncology were involved. Patient underwent treatment for ESBL E. coli bacteremia for a total of 2 weeks with IV ertapenem as outpatient. Subsequently patient has been following up with urology and she tells me that there was a plan for a surgical procedure but it is postponed. Upon review of Dr. Samano notes it appears that patient needed cardiology clearance for the procedure under anesthesia. Patient was found to have EKG said changes suggestive of ischemia and a cardiology evaluation revealed that she was at moderate risk for the procedure under anesthesia. Despite that the plan was to proceed with the procedure on January 08 but patient in the interim felt bad and is now admitted to the hospital. Patient describes that for the last several days she has been experiencing extreme weakness pain all over her body. Her boyfriend who is in the room reports that she has been having extremely severe pain upon minimal touch especially in her ankles thought to be secondary to her neuropathy. She lost her ability to stand because of this weakness and pain and also reported abdominal distention and discomfort and due to an overall feeling of unwellness she presented to the emergency department. She reports that her blood sugar was greater than 1000 by EMS fingerstick. She reports compliance with her medications but from past admission experience with her I am not sure if she is compliant. Patient was also seen by urology during her last admission and noted to have neurogenic bladder in addition to a component of obstipation from the uterine mass related urinary problems. Patient denies any vaginal spotting or any blood-tinged discharge in the interim. She does report obstipation and periods of constipation versus fairly severe despite taking a stool softener. Sepsis workup was initiated blood cultures are now positive for Klebsiella oxytoca as well as urine cultures are positive for Klebsiella oxytoca. Patient has been evaluated by urology and it is their recommendation that patient had a Sheikh catheterization throughout her admission and possibly need for intermittent self-catheterization on discharge. Patient has also been evaluated by [employer] oncology and does not appear that they have any immediate plans for surgery. A CAT scan of the abdomen showed a lobulated mass in the left adnexal region the left lower quadrant similar to her prior imaging in August as well as October 2017. She was noted to have a markedly distended bladder as well as rectal impaction and additionally bilateral mild to moderate hydronephrosis. Patient denies any fevers chills or night sweats prior to admission GI symptoms as noted above. No [employer] related discharge. [employer] history as noted above. Denies any weight loss. Appetite okay. Infectious disease consulted for evaluation and management of sepsis, gram- negative bacteremia as well as gram-negative navya UTI. Overnight events reviewed No fevers No rash No diarrhea WBC still at 17. Complains of pain and tenderness in breast folds. Antibiotics Current Medications Medications (Trade) Dose Ordered Sig/Elroy Route Start Time Stop Time Status Last Admin (NS Flush) 2 ml UNSCH PRN IV FLUSH 12/17/17 23:15 (NS Flush) 2 ml BID IV FLUSH 12/18/17 09:00 12/25/17 21:52 (Tylenol) 650 mg Q6H PRN PO 12/17/17 23:15 (Protonix) 40 mg DAILY PO 12/18/17 09:00 12/25/17 09:12 (Zofran Odt) 4 mg Q6H PRN PO 12/17/17 23:45 12/24/17 08:48 (Duoneb Neb) 1 ampule Q2HR NEB PRN INH 12/17/17 23:15 ([facility] Nursing Information) 1 Q361D XX 12/17/17 23:15 12/18/17 02:57 (Chlorhexidine 2% Cloth) Taper DAILY@04 TOP 12/18/17 04:00 12/14/18 03:59 12/21/17 04:00 (Chlorhexidine 2% Cloth) 3 pack UNSCH PRN TOP 12/17/17 23:15 (Milk Of Magnesia Liq) 30 ml Q12H PRN PO 12/17/17 23:15 (Senokot) 17.2 mg Q12H PRN PO 12/17/17 23:15 (Dulcolax Supp) 10 mg DAILY PRN RECTAL 12/17/17 23:15 (Lactulose Liq) 30 ml DAILY PRN PO 12/17/17 23:15 (Nephrocaps) 1 cap DAILY PO 12/18/17 09:00 12/25/17 09:12 (Percocet 5-325 Mg) 1 tab Q4H PRN PO 12/18/17 02:30 12/25/17 22:03 (Fleet Mineral Oil Enema) 118 ml DAILY RECTAL 12/18/17 11:30 (D50w (Vial) Inj) 50 ml UNSCH PRN IV PUSH 12/19/17 02:15 (NovoLIN N INJ) 15 units BID@08,17 SQ 12/19/17 08:00 12/25/17 18:05 (NovoLOG SUPPLEMENTAL SCALE) 1 ACHS SQ 12/19/17 08:00 12/25/17 22:12 (Glucagon Inj) 1 mg UNSCH PRN IM/SQ 12/19/17 02:30 (Cymbalta [address]) 30 mg DAILY PO 12/20/17 15:00 12/21/17 08:39 (Debi-Colace) 1 tab BID PO 12/22/17 09:00 12/25/17 09:12 (Mylicon Chew) 80 mg PCHS PRN CHEW 12/24/17 01:30 12/25/17 18:43 (Mag-Al Plus Susp Liq) 30 ml Q6H PRN PO 12/24/17 01:30 12/24/17 01:35 (Tums Chew) 500 mg Q6H PRN CHEW 12/24/17 01:30 12/24/17 18:12 Cefepime HCl 2000 mg/Sodium Chloride 100 ml @ 200 mls/hr DAILY@1600 IV 12/24/17 16:00 12/25/17 15:55 (Mycostatin Powder) 1 applic Q8HR TOPICAL 12/25/17 22:00 01/11/18 09:00 12/25/17 21:53 (Zyvox) 600 mg Q12HR PO 12/25/17 21:00 12/25/17 21:50 (Diflucan) 100 mg DAILY PO 12/25/17 21:00 12/25/17 21:50 Lines Lines ok Past Medical History Past Medical History Type 2 diabetes, pelvic mass (or masses), neurogenic bladder, obstipation, anxiety, hypertension, elevated cholesterol, gastroesophageal reflux, peripheral neuropathy. Past Surgical History Knee surgery. She has had a prior colonoscopy. Allergies: Coded Allergies: No Known Allergies (Verified Allergy, Unknown, 10/30/17) Objective . Vital Signs Date Time Temp Pulse Resp B/P (MAP) Pulse Ox O2 Delivery O2 Flow Rate FiO2 12/27/17 12:00 98.4 97 18 111/56 (74) 96 12/27/17 09:37 20 12/27/17 08:00 98.2 108 19 145/69 (94) 96 12/27/17 04:00 98.3 100 18 158/79 (105) 100 12/27/17 00:00 98.0 104 19 146/70 (95) 96 12/26/17 20:00 98.9 100 18 152/67 (95) 100 12/26/17 16:00 97.9 99 19 168/80 (109) 100 . Laboratory Tests Test 12/26/17 06:53 12/27/17 05:49 White Blood Count 15.0 TH/MM3 14.6 TH/MM3 Red Blood Count 3.65 MIL/MM3 3.61 MIL/MM3 Hemoglobin 8.1 GM/DL 8.0 GM/DL Hematocrit 25.9 % 25.5 % Mean Corpuscular Volume 70.9 FL 70.7 FL Mean Corpuscular Hemoglobin 22.0 PG 22.3 PG Mean Corpuscular Hemoglobin Concent 31.1 % 31.5 % Red Cell Distribution Width 18.9 % 18.3 % Platelet Count 435 TH/MM3 467 TH/MM3 Mean Platelet Volume 7.3 FL 7.4 FL Neutrophils (%) (Auto) 81.5 % 79.8 % Lymphocytes (%) (Auto) 11.7 % 14.1 % Monocytes (%) (Auto) 4.7 % 4.6 % Eosinophils (%) (Auto) 1.5 % 0.8 % Basophils (%) (Auto) 0.6 % 0.7 % Neutrophils # (Auto) 12.2 TH/MM3 11.7 TH/MM3 Lymphocytes # (Auto) 1.8 TH/MM3 2.1 TH/MM3 Monocytes # (Auto) 0.7 TH/MM3 0.7 TH/MM3 Eosinophils # (Auto) 0.2 TH/MM3 0.1 TH/MM3 Basophils # (Auto) 0.1 TH/MM3 0.1 TH/MM3 CBC Comment AUTO DIFF DIFF FINAL Differential Total Cells Counted 100 Neutrophils % (Manual) 76 % Band Neutrophils % 6 % Lymphocytes % 10 % Monocytes % 4 % Eosinophils % 2 % Neutrophils # (Manual) 12.6 TH/MM3 Myelocytes 2 % Differential Comment FINAL DIFF MANUAL Platelet Estimate NORMAL Platelet Morphology Comment NORMAL Laboratory Tests Test 12/26/17 06:53 12/26/17 13:42 12/27/17 05:49 Blood Urea Nitrogen 25 MG/DL 22 MG/DL Creatinine 2.14 MG/DL 1.98 MG/DL Random Glucose 220 MG/DL 103 MG/DL Total Protein 6.7 GM/DL Albumin 1.9 GM/DL Calcium Level 8.6 MG/DL 8.8 MG/DL Alkaline Phosphatase 454 U/L Aspartate Amino Transf (AST/SGOT) 42 U/L Alanine Aminotransferase (ALT/SGPT) 53 U/L Total Bilirubin 0.6 MG/DL Sodium Level 137 MEQ/L 139 MEQ/L Potassium Level 4.1 MEQ/L 4.1 MEQ/L Chloride Level 103 MEQ/L 104 MEQ/L Carbon Dioxide Level 24.9 MEQ/L 24.8 MEQ/L Anion Gap 9 MEQ/L 10 MEQ/L Estimat Glomerular Filtration Rate 29 ML/MIN 31 ML/MIN Troponin I LESS THAN 0.02 NG/ML Microbiology Date/Time Source Procedure Growth Status 12/24/17 21:22 Blood Peripheral Aerobic Blood Culture - Preliminary NO GROWTH IN 3 DAYS Resulted 12/24/17 21:22 Blood Peripheral Anaerobic Blood Culture - Preliminary NO GROWTH IN 3 DAYS Resulted 12/24/17 16:00 Blood Peripheral Aerobic Blood Culture - Preliminary NO GROWTH IN 3 DAYS Resulted 12/24/17 16:00 Blood Peripheral Anaerobic Blood Culture - Preliminary NO GROWTH IN 3 DAYS Resulted Imaging Last Impressions Abdomen X-Ray 12/20/17 0000 Signed Impressions: CONCLUSION: 1. Linear air-like density paralleling the left lateral wall of the urinary bl adder. This is likely within the wall as opposed to the lumen. This raises conc chantal for acute cystitis. Chest X-Ray 12/18/17 0600 Signed Impressions: CONCLUSION: Negative examination. Abdomen/Pelvis CT 12/17/17 2207 Signed Impressions: CONCLUSION: 1. Markedly distended bladder with mild to moderate bilateral hydronephrosis. 2. Rectal impaction measuring up to 8.5 cm in diameter. 3. Lobulated mass in left adnexal region extending into left lower quadrant si milar in appearance to August and October 2017. Cannot exclude a slow growing ovaria n neoplasm. Physical Exam GENERAL: This is a well-nourished, well-developed patient, in no apparent distress. SKIN: No rashes, ecchymoses or lesions. Cool and dry. HEAD: Atraumatic. Normocephalic. No temporal or scalp tenderness. EYES: Pupils equal round and reactive. Extraocular motions intact. No scleral icterus. No injection or drainage. ENT: Nose without bleeding, purulent drainage or septal hematoma. Throat without erythema, tonsillar hypertrophy or exudate. Uvula midline. Airway patent. NECK: Trachea midline. Supple, nontender, no meningeal signs. Breast folds with skin denudation, erythema and tenderness. CARDIOVASCULAR: Heart sounds audible. RESPIRATORY: Clear to auscultation. Breath sounds equal bilaterally. No wheezes , rales, or rhonchi. GASTROINTESTINAL: Abdomen soft, diffuse tenderness more pronounced in the right lower quadrant. MUSCULOSKELETAL: Extremities without clubbing, cyanosis, or edema. No joint tenderness, effusion, or edema noted. No calf tenderness. Negative Homans sign bilaterally. NEUROLOGICAL: Awake and alert. Nonfocal exam. Psych cooperative IV line sites with no evidence of infection. Assessment & Plan Remarks Sepsis present on admission Klebsiella oxytoca bacteremia Klebsiella oxytoca UTI Breast fold cellulitis. Chronically distended is chronically thick-walled urinary bladder possible chronic cystitis Obstipation with compression of possible re-the rectum over the bladder. Uterine adnexal mass [facility] on board. Evaluation ongoing. Recs: ok to DC home on Levaquin, diflucan and oral zyvox for 7 more days. Follow up with Urology. nakita Brice Will sign off please call back if any change in clinical condition or questions. Vika Pearson MD Dec 27, 2017 15:30
--- NOTE | 2017-12-27 20:11 | EKG ---
Date Performed: 12/26/2017 Time Performed: 12:42:26 PTAGE: 57 years EKG: Sinus rhythm POSSIBLE LEFT ATRIAL ENLARGEMENT When compared to previous tracing, sinus rate is slower. BORDERLINE ECG PREVIOUS TRACING : 12/23/2017 03.01 DOCTOR: Conrado Valle Interpretating Date/Time 12/27/2017 20:10:22
== END 2017-12-27 16:00 | DRG 698 ==
LOC: NEPE 20:00 → NEDA 23:09 → HIMW 12-18 02:00 → N06A 12-21 09:47 → N07A 12-24 19:20 → N06A 12-24 19:41 → N07A 12-24 20:23
PROVIDERS: ADMIT Internal Medicine; ATTEND Internal Medicine
PROC: 0T9B70Z Drainage of Bladder with Drainage Device, Via Natural or Artificial Opening (ICD-10-PCS; principal; 2017-12-17)
PROC: 30233N1 Transfusion of Nonautologous Red Blood Cells into Peripheral Vein, Percutaneous Approach (ICD-10-PCS; 2017-12-18)
DX: T83.511A Infection and inflammatory reaction due to indwelling urethral catheter, initial encounter (principal); A41.59 Other Gram-negative sepsis; E11.10 Type 2 diabetes mellitus with ketoacidosis without coma; N17.9 Acute kidney failure, unspecified; E87.1 Hypo-osmolality and hyponatremia; E11.22 Type 2 diabetes mellitus with diabetic chronic kidney disease; K56.49 Other impaction of intestine; E11.42 Type 2 diabetes mellitus with diabetic polyneuropathy; N30.00 Acute cystitis without hematuria; N13.30 Unspecified hydronephrosis; N85.8 Other specified noninflammatory disorders of uterus; Y84.6 Urinary catheterization as the cause of abnormal reaction of the patient, or of later complication, without mention of misadventure at the time of the procedure; N83.9 Noninflammatory disorder of ovary, fallopian tube and broad ligament, unspecified; N18.9 Chronic kidney disease, unspecified; K56.41 Fecal impaction; K21.9 Gastro-esophageal reflux disease without esophagitis; I12.9 Hypertensive chronic kidney disease with stage 1 through stage 4 chronic kidney disease, or unspecified chronic kidney disease; E78.5 Hyperlipidemia, unspecified; F17.200 Nicotine dependence, unspecified, uncomplicated; D50.9 Iron deficiency anemia, unspecified; N32.89 Other specified disorders of bladder; E86.0 Dehydration; F43.23 Adjustment disorder with mixed anxiety and depressed mood; N31.9 Neuromuscular dysfunction of bladder, unspecified; D63.1 Anemia in chronic kidney disease; M54.9 Dorsalgia, unspecified; R00.0 Tachycardia, unspecified; N61.0 Mastitis without abscess
CPT/HCPCS: 36430; 71045; 74018; 74176; 76937; 80048; 80053; 80069; 81001; 82010; 82550; 82607; 82728; 82747; 82800; 82948; 83036; 83540; 83550; 83605; 83615; 83690; 83735; 84100; 84484; 85007; 85025; 85027; 85044; 85610; 85652; 85730; 86038; 86140; 86850; 86880; 86900; 86901; 86920; 87040; 87077; 87086; 87186; 87205; 87641; 93005; 96374; 96375; 96376; J0692; J1756; J1815; J1817; J2270; J2543; J2765; J3370; J3480; J7030; J7040; J7042; J7050; J7070; P9016